=== PATIENT | male | born 1970 | race Caucasian/White ===

== ENCOUNTER 2017-05-18 09:33 | Emergency (ER) | payer OTHER ==
[~2017-05-18] VITALS: Ht 190.5 cm; Wt 149.7 kg
[~2017-05-18 09:33] MED LIST: AMOX TR-K CLV1 EAC1 PO; BACTRIM DS TAB1 EACH PO; DAY TIME COLD-296 ML PO; EFFEXOR XR37.5 MG PO; FARXIGA5 MG PO; HUMALOG100 UNIT/1; HUMALOG100 UNIT/1 SQ; LANTUS100 UNIT/1; LANTUS100 UNITS/ SUB-Q; LEVOTHYROXINE200 MCG PO; LISINOPRIL20 MG; METFORMIN HCL500 MG; METOPROLOL SUC200 MG PO; METOPROLOL TART50 MG; NAPROXEN500 MG PO; NORCO 5-325 TA1 EACH PO; PRAVACHOL20 MG PO; PREDNISONE20 MG PO; PRILOSEC20 MG; PROVENTIL HFA6.7 GM INH; TAMIFLU75 MG PO; TRESIBA FL200 UNIT/1 SQ; VENLAFAXINE HCL75 MG PO; ZOFRAN ODT4 MG PO
[2017-05-18] MEDS ORDERED: VICTOZA 2-0.6 MG/0.1 SUB-Q (09:51)
[2017-05-18] MEDS ORDERED: GABAPENTIN300 MG PO (09:52)
[2017-05-18] MEDS ORDERED: NORCO 5-325 TA1 EACH PO (10:23)
[2017-05-18] MEDS ORDERED: BACTRIM 400-801 EACH PO (10:23)
== END 2017-05-18 10:42 | disposition home or self-care (01) ==
LOC: ED 09:33
DX: I47.1 Supraventricular tachycardia (principal); J45.909 Unspecified asthma, uncomplicated; F32.9 Major depressive disorder, single episode, unspecified; Z88.2 Allergy status to sulfonamides; Z88.5 Allergy status to narcotic agent; Z79.899 Other long term (current) drug therapy
CPT/HCPCS: 99283

== ENCOUNTER 2017-05-31 16:15 | Emergency (ER) | payer OTHER ==
[~2017-05-31] VITALS: Ht 190.5 cm; Wt 151.9 kg
[~2017-05-31 16:15] MED LIST changes: +BACTRIM 400-801 EACH PO; +GABAPENTIN300 MG PO; +VICTOZA 2-0.6 MG/0.1 SUB-Q
[2017-05-31] MEDS ORDERED: DULOXETINE HCL60 MG PO (16:26)
== END 2017-05-31 18:48 | disposition home or self-care (01) ==
LOC: ED 16:15
DX: E10.9 Type 1 diabetes mellitus without complications (principal); E86.0 Dehydration; E78.5 Hyperlipidemia, unspecified; I10 Essential (primary) hypertension; Z88.1 Allergy status to other antibiotic agents; Z88.8 Allergy status to other drugs, medicaments and biological substances; Z79.899 Other long term (current) drug therapy; Z79.4 Long term (current) use of insulin; Z79.01 Long term (current) use of anticoagulants
CPT/HCPCS: 80053; 81001; 83690; 85025; 96361; 96374; 99284; J2405; J7030

== ENCOUNTER 2017-09-01 15:01 | Emergency (ER) | payer OTHER ==
[~2017-09-01] VITALS: Ht 190.5 cm; Wt 146.1 kg
[~2017-09-01 15:01] MED LIST changes: +DULOXETINE HCL60 MG PO
[2017-09-01] MEDS ORDERED: CEFDINIR300 MG PO (15:41)
[2017-09-01] MEDS ORDERED: ONDANSETRON ODT8 MG PO (17:40)
[2017-09-01] MEDS ORDERED: BENTYL10 MG PO (17:40)
== END 2017-09-01 17:52 | disposition home or self-care (01) ==
LOC: ED 15:01
DX: K52.9 Noninfective gastroenteritis and colitis, unspecified (principal); E11.9 Type 2 diabetes mellitus without complications; I10 Essential (primary) hypertension; E78.5 Hyperlipidemia, unspecified; Z88.8 Allergy status to other drugs, medicaments and biological substances; Z79.899 Other long term (current) drug therapy; Z79.4 Long term (current) use of insulin
CPT/HCPCS: 74177; 80053; 82150; 83690; 85025; 96361; 96374; 96375; 99284; J1170; J2405; J7030; Q9967

== ENCOUNTER → 2018-04-03 | Emergency (ER) | payer OTHER ==
[~2018-04-03] VITALS: Ht 188 cm; Wt 121.6 kg
[~2018-04-03] MED LIST changes: +BENTYL10 MG PO; +CEFDINIR300 MG PO; +ONDANSETRON ODT8 MG PO; +PHENERGAN25 MG PR
== END ==
LOC: ED 02:37
DX: R11.2 Nausea with vomiting, unspecified (principal); E87.6 Hypokalemia; E11.9 Type 2 diabetes mellitus without complications; E78.5 Hyperlipidemia, unspecified; I10 Essential (primary) hypertension; Z88.1 Allergy status to other antibiotic agents; Z88.8 Allergy status to other drugs, medicaments and biological substances; Z79.899 Other long term (current) drug therapy; Z79.4 Long term (current) use of insulin
CPT/HCPCS: 74177; 80053; 82150; 83690; 85025; 96361; 96374; 96375; 99284; J1170; J2550; J7030; Q9967

== ENCOUNTER 2018-05-22 23:21 | Emergency (ER) | payer OTHER ==
[~2018-05-22] VITALS: Ht 188 cm; Wt 111.1 kg
[2018-05-22] MEDS ORDERED: METFORMIN HCL500 M1 PO (23:40)
[2018-05-22] MEDS ORDERED: OMEPRAZOLE20 MG PO (23:43)
[2018-05-23] MEDS ORDERED: CIPRO500 MG PO (01:32)
== END 2018-05-23 01:42 | disposition home or self-care (01) ==
LOC: ED 23:21
PROC: 4A0D7LZ Measurement of Urinary Volume, Via Natural or Artificial Opening (ICD-10-PCS; principal; 2018-05-22)
DX: N41.9 Inflammatory disease of prostate, unspecified (principal); E11.9 Type 2 diabetes mellitus without complications; E78.5 Hyperlipidemia, unspecified; I10 Essential (primary) hypertension; Z88.1 Allergy status to other antibiotic agents; Z88.8 Allergy status to other drugs, medicaments and biological substances; Z79.899 Other long term (current) drug therapy; Z79.84 Long term (current) use of oral hypoglycemic drugs
CPT/HCPCS: 51798; 74176; 80053; 81001; 84436; 84479; 84480; 85025; 96361; 96374; 96375; 99284; J1885; J2405; J7030

== ENCOUNTER 2018-07-14 10:00 | Emergency (ER) | payer OTHER ==
[~2018-07-14] VITALS: Ht 188 cm; Wt 104.3 kg
[~2018-07-14 10:00] MED LIST changes: +CIPRO500 MG PO; +METFORMIN HCL500 M1 PO; +OMEPRAZOLE20 MG PO
--- NOTE | 2018-07-14 18:55 | EKG ---
[facility] [address] [facility] [place], [place] [address] Signed Normal sinus rhythm Normal ECG When compared with ECG of 18-SEP-2016 09:38, No significant change was found Confirmed by JOSHUA YEH DO ([id number]) on 07/14/2018 6:55:31 PM Electronically Signed By: JOSHUA YEH DO 07/14/18 1855 PATIENT NAME: KHURRAM NGUYỄN GEETHA Electrocardiogram DATE OF : 68 PHYSICIAN: JOSHUA YEH DO REPORT #: [id number] REPORT IS CONFIDENTIAL AND NOT TO BE RELEASED WITHOUT AUTHORIZATION
== END 2018-07-14 12:30 | disposition home or self-care (01) ==
LOC: ED 10:00
DX: E86.0 Dehydration (principal); I10 Essential (primary) hypertension; E11.9 Type 2 diabetes mellitus without complications; Z87.891 Personal history of nicotine dependence; Z88.1 Allergy status to other antibiotic agents; Z88.8 Allergy status to other drugs, medicaments and biological substances; Z79.899 Other long term (current) drug therapy; Z79.84 Long term (current) use of oral hypoglycemic drugs
CPT/HCPCS: 80053; 84484; 85025; 93005; 93010; 96361; 96374; 99284; J2405; J7120

== ENCOUNTER 2019-01-18 17:27 | Observation (INO) | payer OTHER ==
[~2019-01-18] VITALS: Ht 190.5 cm; Wt 105.7 kg
--- OUTSIDE RECORDS SUMMARY | ~2019-01-18 | XMS | Clinical Summary ---
Demographics + + + | Address | [address] [place] | | | [place] [address] | + + + | Home Phone | | + + + | Preferred Language | Unknown | + + + | Marital Status | | + + + | Lutheran Affiliation | Unknown | + + + | Race | Unknown | + + + | Ethnic Group | Unknown | + + + Author + + + | Author | [facility] | + + + | Organization | [facility] | + + + | Address | Unknown | + + + | Phone | Unavailable | + + + Support + + +---------+ + | Name | Relationship | Address | Phone | + + +---------+ + | Melvi Betancourt | ECON | Unknown | | + + +---------+ + Care Team Providers + +------+ + | Care Pattern Drafter Name | Role | Phone | [...] | [facility] | [phone] | | | | | [facility]OVENTRY | [...] | | al/Nilay | | 1970 | [phone] | [place], | | | katya | | | [birth year] Home: | [place] [address] | | | | | | | | | | | | | [phone] | | | | | | | [phone] | | + +--------+ +--------+ + +"
--- OUTSIDE RECORDS SUMMARY | ~2019-01-18 | XMS | Clinical Summary ---
Demographics + + + | Address | [address] | | | [place] [address] | + + + | Home Phone | | + + + | Preferred Language | Unknown | + + + | Marital Status | | + + + | Zoroastrianism Affiliation | NRP | + + + [...] + | Pooja Nguyễn | ECON | [address] | | | | | [place] [address] | | + + + + + Care Team Providers + +------+ + | Care Spot Washer Name | Role | Phone | + +------+ + | eHmalatha Lawrence PA-C | PP | | + +------+ + Source Comments BERNABE is fully live on both [facility] and [facility] InPatient.[facility] Allergies + + + + [...] | + + + + + + Current Medications + + +---------+---------+------+------+-------+ | Prescription | Sig. | Disp. | Refills | Star | End | Statu | | | | | | t | Date | s | | | | | | Date | | | + + +---------+---------+------+------+-------+ | levothyroxine 200 | Take 200 mcg by | | | | | Activ | | mcg oral tablet | mouth once daily. 6 | | | 06/27 | | e | | | days a week per pt. | | | 17 | | | + + +---------+---------+------+------+-------+ | | Place under tongue. | | | | | Activ | | Cyanocobalamin-Cobam | | | | | | e | | amide (B-12 PLUS) | | | | | | | | 5,000-100 mcg | | | | | | | | sublingual tablet, | | | | | | | | sublingual | | | | | | | + + +---------+---------+------+------+-------+ | LEVOMEFOLATE | Take 15 mcg by mouth | | | | | Activ | | CALCIUM | once daily. | | | | | e | | (L-METHYLFOLATE | | | | | | | | ORAL) | | | | | | | + + +---------+---------+------+------+-------+ | iron | Take 5,000 mcg by | | | | | Activ | | gly,ref-C-[id number]-sn-xco | mouth once daily. | | | | | e | | olate 150 mg | | | | | | | | iron-200 mg-250 mcg | | | | | | | | oral tablet | | | | | | | + + +---------+---------+------+------+-------+ | buPROPion 75 mg | Take 2 tablets by | 120 | 0 | 03/1 | | Activ | | oral tablet | mouth two times | tablet | | 3/20 | | e | | | daily. | | | 18 | | | + + +---------+---------+------+------+-------+ | gabapentin 300 mg | Take 1 capsule by | | | 03/1 | | Activ | | [...] | | | | | + + +---------+---------+------+------+-------+ | metoprolol | Take 1 tablet by | 60 | 0 | 03/1 | | Activ | | tartrate 100 mg oral | mouth two times | tablet | | 3/20 | | e | | tablet | daily. | | | 18 | | | + + +---------+---------+------+------+-------+ | DULoxetine 60 mg | Take 1 capsule by | | | 03/1 | | Activ | | oral capsule,delayed | mouth once daily. | | | 20 | | e | | release(DR/EC) | [...] | | | | | + + +---------+---------+------+------+-------+ | cholecalciferol | Take 2 capsules by | 180 | 1 | 10/ | | Activ | | (Vitamin D3) | mouth once daily. | capsule | | 04/27 | | e | | (VITAMIN D3) 2,000 | | | | 18 | | | | unit oral capsule | | | | | | | + + +---------+---------+------+------+-------+ Active Problems + + + | Problem | Noted Date | + + + | Impaired intestinal absorption | 08/31/2018 | + + + | S/P gastric bypass | 01/17/2018 | + + + | Morbid obesity with BMI of 40.0-44.9, adult ([facility]) | 07/08/2017 | + + + | Insulin dependent diabetes mellitus ([facility]) | 07/08/2017 | + + + | [...] | 8 | + + + + Family History + + +------+ + | [...] + +---------+ + | Alcohol Use | Drinks/We | oz/Week | Comments | | | ek | | | + + +---------+ + | No | | | | + + +---------+ + + + + | Sex Assigned at | Date Recorded | | | | + + + | Not on file | | + + + Last Filed Vital Signs + + + + | Vital Sign | Reading | Time Taken | + + + + | Blood Pressure | 124/86 | 08/31/2018 3:35 PM PDT | + + + + | Pulse | 85 | 08/31/2018 3:35 PM PDT | + + + + | Temperature | 36.7 C (98.1 F) | 08/31/2018 3:35 PM PDT | + + + + | Respiratory Rate | 18 | 08/31/2018 3:35 PM PDT | + + + + | Oxygen Saturation | 100% | 05/25/2018 11:45 AM PDT | + + + + | Inhaled Oxygen | - | - | | Concentration | | | + + + + | Weight | 105.3 kg (232 lb 1.6 | 08/31/2018 3:35 PM PDT | | | oz) | | + + + + | Height | 188 cm (6' 2") | 08/31/2018 3:35 PM PDT | + + + + | Body Mass Index | 29.8 | 08/31/2018 3:35 PM PDT | + + + + Plan of Treatment + + + + + | Health Maintenance | Due Date | Last Done | Comments | + + + + + | Influenza (Flu) | | 08/29/2015, 08/22/2012, | | | vaccination (#1) | 8 | 09/15/2010, Additional history | | | | | exists | | + + + + + | Pneumococcal (Adult) | Completed | 02/22/2007 | | + + + + + Implants + +------+-------+ +--------+--------+--------+ | Implanted | Type | Area | Manufacture | Device | Expira | Model | | | | | r | | tion | / | | | | | | Identi | Date | Serial | | | | | | fier | | / Lot | + +------+-------+ +--------+--------+--------+ | Reinforcement Staple Line | | N/A: | [employer] | | 09/07/ | [id number] | | Bioabsorbable Sterile | | Ankle | [employer] | | 2019 | [id number] / | | Seamguard Latex Free | | | | | | | | Disposable Blue Gold Green - | | | | | | /[id number] | | [id number]: Qty: 2 on | | | | | | 575 | | 01/17/2018 by Arvin Altamirano | | | | | | | | MD Luis Felipe | | | | | | | + +------+-------+ +--------+--------+--------+ | Reinforcement Staple Line | | N/A: | [employer] | | 03/07/ | [id number] | | Bioabsorbable Sterile | | Ankle | [employer] | | 2018 | 5 / | | Seamguard Latex Free | | | | | | /[id number] | | Disposable Dst Series Ceea 25 | | | | | | 750 | | - [id number]: Qty: 1 | | | | | | | | on 01/17/2018 by Evelia | | | | | | | | Arvin Briscoe MD | | | | | | | + +------+-------+ +--------+--------+--------+ Results Not on filefrom Last 3 Months Insurance + +--------+ +------+ + + | Payer | Benefi | Subscriber | Type | Phone | Address | | | t Plan | ID | | | | | | / | | | | | | | Group | | | | | + +--------+ +------+ + + | [facility] | PROVID | [id number] | PPO | [phone] | [address] | | | [address] | | | [phone] | [place] [address] | | | CHOICE | | | | | | | PEBB | | | | | + +--------+ +------+ + + + +--------+ +--------+ + + | Guarantor Name | Accoun | Relation to | Date | Phone | Billing Address | | | t Type | Patient | of | | | | | | | | | | + +--------+ +--------+ + + | KHURRAM NGUYỄN | Person | Self | [birth year] | Home: | [address] [place] [place] [place] | | | al/Fam | | 1970 | [phone] | [place] [address] | | | katya | | | [phone] | | + +--------+ +--------+ + +
--- OUTSIDE RECORDS SUMMARY | ~2019-01-18 | XMS | Clinical Summary ---
Demographics + + + | Address | [address] | | | [place] [address] | + + + | Home Phone | | + + + | Preferred Language | Unknown | + + + | Marital Status | | + + + | Alevism Affiliation | Unknown | + + + | Race | Unknown | + + + | Ethnic Group | Unknown | + + + Author + + + | Author | [facility] | | | and [place] | + + + | Organization | [facility] | | | and [place] | + + + | Address | Unknown | + + + | Phone | Unavailable | + + + Support + + +---------+ + | Name | Relationship | Address | Phone | + + +---------+ + | Pooja Nguyễn | ECON | Unknown | | + + +---------+ + Care Team Providers + +------+ + | Care Cupola Tapper Name | Role | Phone | + +------+ + | Hemalatha Lawrence | PP | | + +------+ + Allergies No Known Allergies Current Medications + + +-------+---------+------+------+-------+ | Prescription | Sig. | Disp. | Refills | Star | End | Statu | | | | | | t | Date | s | | | | | | Date | | | + + +-------+---------+------+------+-------+ | atorvaSTATin | Take 10 mg by mouth | | | | | Activ | | (LIPITOR) 10 mg | nightly. | | | | | e | | tablet | | | | | | | + + +-------+---------+------+------+-------+ | DULoxetine | Take 60 mg by mouth | | | | | Activ | | (CYMBALTA) [address] | Daily. | | | | | e | | capsule | | | | | | | + + +-------+---------+------+------+-------+ | gabapentin | Take 300 mg by mouth | | | | | Activ | | (NEURONTIN) 300 mg | 3 times daily. | | | | | e | | capsule | Takes 2 am, 2 noon, | | | | | | | | 3 nightly | | | | | | + + +-------+---------+------+------+-------+ | levothyroxine | Take 200 mcg by | | | | | Activ | | (SYNTHROID) 200 mcg | mouth every morning | | | | | e | | tablet | (before breakfast). | | | | | | + + +-------+---------+------+------+-------+ | L-methylfolate | Take 1 tablet by | | | | | Activ | | Calcium 15 MG TABS | mouth Daily. | | | | | e | + + +-------+---------+------+------+-------+ | metFORMIN | Take 500 mg by mouth | | | | | Activ | | (GLUCOPHAGE) 500 mg | daily (with | | | | | e | | tablet | breakfast). | | | | | | + + +-------+---------+------+------+-------+ | Methylcobalamin | Take 5,000 mcg by | | | | | Activ | | (METHYL B-12) 1000 | mouth Daily. | | | | | e | | MCG LOZG | | | | | | | + + +-------+---------+------+------+-------+ | metoprolol | Take 200 mg by mouth | | | | | Activ | | succinate | Daily. | | | | | e | | (TOPROL-XL) 200 mg | | | | | | | | ER tablet | | | | | | | + + +-------+---------+------+------+-------+ | acetaminophen | Take 650 mg by mouth | | | 01/06 | | Activ | | (TYLENOL) 325 mg | every 6 hours as | | | 02/25 | | e | | tablet | needed. | | | 18 | | | + + +-------+---------+------+------+-------+ | buPROPion | Take 75 mg by mouth | | | 01/06 | | Activ | | (WELLBUTRIN) 75 mg | Daily. | | | 01/25 | | e | | tablet | | | | 18 | | | + + +-------+---------+------+------+-------+ | cholecalciferol | Take 2,000 Units by | | | 07/09 | | Activ | | (VITAMIN D-3) 2000 | mouth Daily. | | | 01/25 | | e | | units TABS | | | | 17 | | | + + +-------+---------+------+------+-------+ | ursodiol (BILLIE) | Take 250 mg by mouth | | | 03 | | Activ | | 250 mg tablet | Daily. | | | 05/27 | | e | | | | | | 18 | | | + + +-------+---------+------+------+-------+ | CARAFATE 1 GM/10ML | Take 1 g by mouth 4 | | | 05/ | | Activ | | suspension | times daily. | | | 05/27 | | e | | | | | | 18 | | | + + +-------+---------+------+------+-------+ | ondansetron | Take 4 mg by mouth | | | 03/ | | Activ | | (ZOFRAN ODT) 4 mg | every 8 hours as | | | 3 | | e | | disintegrating | needed. | | | 18 | | | | tablet | | | | | | | + + +-------+---------+------+------+-------+ | omeprazole | Take 20 mg by mouth | | | / | | Activ | | (PRILOSEC) 20 mg | every morning | | | 04/27 | | e | | capsule | (before breakfast). | | | 18 | | | + + +-------+---------+------+------+-------+ Active Problems + + + | Problem | Noted Date | + + + | Epigastric pain | 04/06/2018 | + + + | Anxiety disorder, unspecified type | 04/06/2018 | + + + | Depression | 04/06/2018 | + + + | Type 2 diabetes mellitus (HCC) | 04/06/2018 | + + + | Hypothyroidism | 04/06/2018 | + + + | Obesity | 04/06/2018 | + + + Family History + + +------+ + | Medical History | Relation | Name | Comments | + + +------+ + | Alcohol abuse | Brother | | | + + +------+ + | Depression | Brother | | | + + +------+ + | Diabetes | Brother | | | + + +------+ + | Hearing loss | Brother | | | + + +------+ + | Mental illness | Brother | | | + + +------+ + | Alcohol abuse | Father | | | + + +------+ + | Colon cancer | Father | | | + + +------+ + | Arthritis | Mother | | | + + +------+ + | Depression | Mother | | | + + +------+ + | Diabetes | Mother | | | + + +------+ + | Hearing loss | Mother | | | + + +------+ + | Miscarriages / | Mother | | | | stillbirths | | | | + + +------+ + | Stroke | Mother | | | + + +------+ + | Alcohol abuse | Sister | | | + + +------+ + | Cancer | Sister | | | + + +------+ + | Depression | Sister | | | + + +------+ + | Diabetes | Sister | | | + + +------+ + | Alcohol abuse | Sister | | | + + +------+ + | Cancer | Sister | | | + + +------+ + | Depression | Sister | | | + + +------+ + | Diabetes | Sister | | | + + +------+ + + +------+--------+ + | Relation | Name | Status | Comments | + +------+--------+ + | Brother | | | | + +------+--------+ + | Father | | | | + +------+--------+ + | Mother | | | | + +------+--------+ + | Sister | | | | + +------+--------+ + | Sister | | | | + +------+--------+ + Social History + +-------+ +--------+------+ | Tobacco Use | Types | Packs/Day | Years | Date | | | | | Used | | + +-------+ +--------+------+ | Never Smoker | | | | | + +-------+ +--------+------+ + +---+---+---+ | Smokeless Tobacco: | | | | | Never Used | | | | + +---+---+---+ + + +---------+ + | Alcohol Use [...] + + + | Blood Pressure | 107/68 | 04/14/20181405 PDT | + + + + | Pulse | 58 | 04/14/20181405 PDT | + + + + | Temperature | 36.6 C (97.9 F) | 04/14/2018 1213 PDT | + + + + | Respiratory Rate | 10 | 04/14/2018 1401 PDT | + + + + | Oxygen Saturation | 93% | 04/14/2018 140 PDT | + + + + | Inhaled Oxygen | - | - | | Concentration | | | + + + + | Weight | 119.7 kg (263 lb | 04/14/2018 123 PDT | | | 14.3 oz) | | + + + + | Height | 188 cm (6' 2") | 04/14/2018 1237 PDT | + + + + | Body Mass Index | 33.88 | 04/14/2018 1237 PDT | + + + + Plan of Treatment + + + + + | Health Maintenance | Due Date | Last Done | Comments | + + + + + | Diabetic Eye Exam | | | | | | 7 | | | + + + + + | Diabetic Foot Exam | | | | | | 7 | | | + + + + + | Hemoglobin A1c Q3 | | | | | Months | 7 | | | + + + + + | Vaccine: | | | | | Dtap/Tdap/Td (1 - | 8 | | | | Tdap) | | | | + + + + + | Vaccine: | | | | | Pneumococcal 19-64 | 8 | | | | (PPSV23 only) Medium | | | | | Risk (1 of 1 - | | | | | PPSV23) | | | | + + + + + | Microalbumin | | | | | Screening | 8 | | | + + + + + | Vaccine: Influenza | | | | | (#1) | 8 | | | + + + + + Results Not on filefrom Last 3 Months Insurance + +--------+ +------+ +---------+ | Payer | Benefi | Subscriber | Type | Phone | Address | | | t Plan | ID | | | | | | / | | | | | | | Group | | | | | + +--------+ +------+ +---------+ | [facility] | PHP | [id number] | PPO | [phone] | | PLAN | PEBB | | | [phone] | | | | PROV | | | | | | | CHOICE | | | | | + +--------+ +------+ +---------+ + +--------+ +--------+ + + | Guarantor Name | Accoun | Relation to | Date | Phone | Billing Address | | | t Type | Patient | of | | | | | | | | | | + +--------+ +--------+ + + | KHURRAM NGUYỄN | Person | Self | [birth year] | Home: | [address] [place] | | | al/Fam | | 1970 | [phone] [place] [address] | | | katya | | | [phone] | | + +--------+ +--------+ + +
[2019-01-18] MEDS ORDERED: BUPROPION XL300 MG PO (17:46)
--- NOTE | 2019-01-18 19:53 | EKG ---
[facility] [address] [facility] [place] [address] Signed Normal sinus rhythm Right bundle branch block Left anterior fascicular block Bifascicular block Abnormal ECG When compared with ECG of 14-JUL-2018 10:18, (RBBB and left anterior fascicular block) is now present Confirmed by VANCE DOUGLASS MD ([id number]) on 01/18/2019 7:53:27 PM Electronically Signed By: VANCE DOUGLASS MD 01/18/19 195 PATIENT NAME: KHURRAM NGUYỄN Electrocardiogram DATE OF : 68 PHYSICIAN: VANCE DOUGLASS MD REPORT #: [id number] REPORT IS CONFIDENTIAL AND NOT TO BE RELEASED WITHOUT AUTHORIZATION
--- NOTE | 2019-01-18 23:04 | NUR ---
ASSESSMENT COMPLETE, MEDICATIONS GIVEN (SEE EMAR). IV FLUIDS INFUSING PER MD ORDERS, SITE WNL. PT A/OX4, DENIES PAIN. LUNCH BOX AND WATER AT BEDSIDE. PT DENIES FURTHER NEEDS, CALLL LIGHT IN REACH.
--- NOTE | 2019-01-19 01:30 | NUR ---
PT SBA TO VOID, 650 OUTPUT. DENIES NEEDS, RESTING IN BED. RR WNL. CALL LIGHT IN REACH. IV FLUIDS INFUSING PER MD ORDERS, SITE WNL.
--- NOTE | 2019-01-19 02:04 | NUR ---
PT RESTING IN BED, RR WNL. TELE #9, NSR, HR 64. CALL LIGHT IN REACH.
--- NOTE | 2019-01-19 02:53 | NUR ---
VITALS AND I&OS DONE AND CHARTED.
--- NOTE | 2019-01-19 02:55 | NUR ---
VSS AND I&O'S RECORDED. ASSESSMENT COMPLETE. PT A/OX4, DENIES PAIN, SOB, DYSPNEA. IV FLUIDS INFUSING PER MD ORDERS, SITE WNL. PT ON RA, NO DISTRESS NOTED. DENIES FURTHER NEEDS. BOWEL TONES ACTIVE. THIS RN DISCUSSED SYMPTOMS OF HYPOGLYCEMIS TO PT, PT VERBALIZED UNDERSTANDING AND WHEN ASKED IF PT CAN TELL WHEN BS BEGINS TO DROP, PT STATED, "YEAH, I CAN TELL". PT DENIES SYMTPOMS F LOW BS AT THIS TIME. CALL LIGHT IN REACH.
--- NOTE | 2019-01-19 04:38 | NUR ---
PT RESTING IN BED, RR WNL. EYES CLOSED, PT APPEARS COMFORTABLE. IV FLUIDS INFUSING PER MD ORDERS. CALL LIGHT IN REACH. PT ON RA.
--- NOTE | 2019-01-19 05:00 | NUR ---
PT ARRIVED TO THE UNIT AT BEGINNING OF SHIFT. VSS. PT A/OX4, DENIED PAIN ALL SHIFT. IV FLUIDS INFUSING PER MD ORDERS, IV SITE WNL. PT ON ADA DIET, TOLERATING WELL, NO NAUSEA THIS SHIFT. BS WNL, NO INSULIN SS ADMINISTERED. BOWEL TONES ACTIVE. PT SBA W/ AMBULATION. USES CALL LIGHT APPROEPRIATELY. VOIDING QS, BM X1 THIS SHIFT.
--- NOTE | 2019-01-19 05:16 | NUR ---
VS AND I&O'S RECORDED. PT UP SBA TO VOID, 825 OUTPUT. NO FURTHER NEEDS. PT RESTING IN BED, CALL LIGHT IN REACH.
--- NOTE | 2019-01-19 07:15 | NUR ---
BEDSIDE HANDOFF REPORT RECEIVED FROM BUDGET RECORD CLERK RN. PT SLEEPING, LEFT UNDISTURBED.
--- NOTE | 2019-01-19 07:28 | NUR ---
scheduled thyroid medication given. pt denies needs, call light in reach.
--- NOTE | 2019-01-19 08:39 | NUR ---
DID PATIENT'S BLOOD SUGAR CHECK ALSO HE IS SITTING UP IN HIS CHAIR. ORDERED HIS BREAKFAST. CHANGED HIS BED LINENS.
--- NOTE | 2019-01-19 08:53 | NUR ---
PT SITTING IN CHAIR. PT COMPLAINT OF FEELING WEAK AND SLIGHTLY DIZZY, SBA BACK TO BED, VSS. PT ON ROOM AIR, LUNG SOUNDS CLEAR. PT DENIES NAUSEA, BOWEL TONES ACTIVE. PT WITHOUT EDEMA, CMS INTACT. IV INFUSING LR AT 100 ML/HR. PT BLOOD GLUCOE 85, SS HUMALOG HELD, TOLERATIGN ADA DIET. DISCUSSED PLAN OF CARE FOR THE DAY. MORNING MEDICATIONS ADMINISTERED. CALL LIGHT WITHIN [facility], PT DENIES OTHER NEEDS AT THIS TIME.
[2019-01-19] MEDS ORDERED: IRON325 M1 PO (11:00)
[2019-01-19] MEDS ORDERED: VITAMIN C500 M1 PO (11:00)
[2019-01-19] MEDS ORDERED: CENTRUM ADULTS1 EACH PO (11:00)
--- NOTE | 2019-01-19 11:02 | NUR ---
MED REC COMPLETE
--- NOTE | 2019-01-19 11:51 | NUR ---
PATIENT IS 1 YR POST BARBY EN Y GASTRIC BYPASS SURGERY. HE HAS LOST ABOUT 110 LBS. HE IS NOT DRINKING MANY PROTEIN DRINKS ANYMORE. HE WAS ABLE TO NAME FISH A PROTEIN FOOD. HE DOES NOT KNOW HOW MUCH PROTEIN HE IS CONSUMING ON AVERAGE. I GAVE HIM A GUIDELINE THAT HE NEEDS 100-140 GRAMS OF PROTEIN EACH DAY. I GAVE HIM A MEAL PLAN OUTLINE WITH GRAMS OF PROTEIN PER MEAL AND SNACK, AND ALSO PROVIDED A LIST OF LEAN PROTEINS. I PRINTED OUT A LIST OF VITAMINS AND MINERAL SUPPLEMENTS HE NEEDS TO TAKE AT HOME. HE SAID HE WAS TAKING SOME, BUT CAME IN WITH WEAKNESS, SO I MADE SURE HE UNDERSTOOD WHAT AND HOW MUCH HE NEEDS TO BE TAKING EVERY DAY. HE APPRECIATED MY HELP. MY CARD PROVIDED IN CASE HE HAS FURTHER QUESTIONS.
== END 2019-01-19 11:55 | disposition home or self-care (01) ==
LOC: ED 17:27 → MS 17:29
PROVIDERS: ADMIT Internal Medicine
DX: E03.9 Hypothyroidism, unspecified (principal); R53.1 Weakness; R07.9 Chest pain, unspecified; F43.9 Reaction to severe stress, unspecified; E11.9 Type 2 diabetes mellitus without complications; I10 Essential (primary) hypertension; E78.5 Hyperlipidemia, unspecified; Z98.84 Bariatric surgery status; Z79.899 Other long term (current) drug therapy; Z79.84 Long term (current) use of oral hypoglycemic drugs; Z88.1 Allergy status to other antibiotic agents; Z88.8 Allergy status to other drugs, medicaments and biological substances
CPT/HCPCS: 36415; 70450; 71045; 71275; 74175; 80048; 80053; 82607; 82746; 83735; 84100; 84425; 84439; 84443; 84484; 85025; 85610; 85730; 87502; 93005; 93010; 96374; 96375; 96376; 99285-25; C9113; G0378; J7120; Q9967

== ENCOUNTER 2019-07-26 00:03 | Emergency (ER) | payer OTHER ==
[~2019-07-26] VITALS: Ht 188 cm; Wt 111.1 kg
[~2019-07-26 00:03] MED LIST changes: +BUPROPION XL300 MG PO; +CENTRUM ADULTS1 EACH PO; +IRON325 M1 PO; +OFLOXACIN5 M1; +VITAMIN C500 M1 PO
== END 2019-07-26 01:26 | disposition home or self-care (01) ==
LOC: ED 00:03
DX: S63.601A Unspecified sprain of right thumb, initial encounter (principal); W22.8XXA Striking against or struck by other objects, initial encounter; E78.5 Hyperlipidemia, unspecified; I10 Essential (primary) hypertension; Z87.891 Personal history of nicotine dependence; Z88.8 Allergy status to other drugs, medicaments and biological substances; Z88.1 Allergy status to other antibiotic agents; Z79.899 Other long term (current) drug therapy
CPT/HCPCS: 73140; 99283

== ENCOUNTER 2019-09-15 11:52 | Day surgery (SDC) | payer OTHER ==
[~2019-09-15] VITALS: Ht 188 cm; Wt 113.4 kg
--- NOTE | ~2019-09-15 | OR ---
[facility] [address] [place], [place] [address] Draft DATE OF OPERATION: 09/15/2019 SURGEON: Brayden Reyes DPM PREOPERATIVE DIAGNOSES: 1. Diabetic foot ulcer with infection. 2. Osteomyelitis, distal phalanx, right hallux. ANESTHESIA: IV general with local block, right foot. INSURANCE CODER: Randall Davies. SPECIMEN TO PATHOLOGY: Bone of distal phalanx, right hallux, also an aerobic and anaerobic cultures. PROCEDURE: Debridement of ulcer and osteomyelitis, right hallux. DESCRIPTION OF PROCEDURE: Attention was initially directed to the right great toe where an incision was made proximal to the toenail transversely across the toe then circumscribing the entire nail. The soft tissues then excised deep to bone, removing the soft tissue surrounding the nail and the toenail itself and exposing the dorsal aspect of the phalanx. At this time, soft tissues were reflected to the distal medial and lateral sides of the phalanx as well as plantarly to fully expose the phalanx, the distal 1.5-2 cm of the distal phalanx, then removed using power instrumentation. This is the portion of bone that showed changes radiographically. The location of the osteotomy within the distal phalanx was noted to have hard and solid bone. The soft tissues surrounding the distal phalanx appeared to be without necrosis, except for a small area at the ulcer site plantarly. At this time, the plantar ulcer was excised and the soft tissues directly superior to the ulcer. The soft tissue then remaining to the toe was irrigated any remaining tissue of nail bed or nail matrix excised and any necrotic appearing tissue excised as well. Soft tissue flap of plantar soft tissues then modified for closure and the surgical site was then closed using 4-0 nylon monofilament suture. Prior to complete closure, calcium sulfate beads with vancomycin were placed within the wound site and the wound site closed completely. ESTIMATED BLOOD LOSS: PATIENT NAME: KHURRAM NGUYỄN OPERATIVE REPORT DATE OF : [birth year] REPORT #: [id number] PHYSICIAN: BRAYDEN REYES DPM PCP: JULISSA PACHECO PA-C REPORT IS CONFIDENTIAL AND NOT TO BE RELEASED WITHOUT AUTHORIZATION [facility] [address] [facility] [place] [address] Draft Less than 5 mL. INTRAOPERATIVE COMPLICATIONS: None. DRESSINGS: Surgical site was dressed with Adaptic, Betadine-soaked gauze, dry gauze, Kerlix fluffs, Flexicon, and Coban for mild compression as well as to secure the dressings. The patient tolerated the procedure and the anesthesia well and left the operating room with vital signs stable and vascular status intact to the right foot as evidenced by hyperemia with removal of the Esmarch. AMA Johnson/WALTL /[id number] Copies: ~ PATIENT NAME: KHURRAM NGUYỄN OPERATIVE REPORT DATE OF : [birth year] REPORT #: [id number] PHYSICIAN: BRAYDEN REYES DPM PCP: JULISSA PACHECO PA-C REPORT IS CONFIDENTIAL AND NOT TO BE RELEASED WITHOUT AUTHORIZATION
--- NOTE | 2019-09-15 14:16 | NUR ---
09/15/19 1416 Hansa Welch 1407- PT ARRIVES TO PACU EASILY AROUSABLE. PT VERY DROWSY AND NOT FOLLOWING DIRECTIONS WELL. PT EDUCATED THAT HE IS IN THE RECOVERY ROOM RESP EVEN AND UNLABORED. OXYGEN SAT LOW TO MID 90'S ON 6L VIA MASK. 1409- PT ENCOURAGED TO COUGH AND DEEP BREATHE. PT IS ABLE TO PERFORM THESE TASKS AND OXYGEN SAT INCREASED TO THE MID TO HIGH 90'S. OXYGEN TITRATED OFF AT THIS TIME.
--- NOTE | 2019-09-16 07:41 | EKG ---
[facility] [address] [facility] [place], [place] [address] Signed Normal sinus rhythm Right bundle branch block Abnormal ECG When compared with ECG of 18-JAN-2019 17:32, Left anterior fascicular block is no longer present Confirmed by VANCE DOUGLASS MD ([id number]) on 09/16/2019 7:41:37 AM Electronically Signed By: VANCE DOUGLASS MD 09/16/19 0741 PATIENT NAME: DELMAKHURRAM Electrocardiogram DATE OF : [birth year] PHYSICIAN: VANCE DOUGLASS MD REPORT #: [id number] REPORT IS CONFIDENTIAL AND NOT TO BE RELEASED WITHOUT AUTHORIZATION
--- NOTE | 2019-09-19 15:41 | PATH ---
[facility] [address] [place], [place] [address] Signed SPECIMEN(S): A RIGHT DISTAL PHALANX SPECIMEN SOURCE: A. RIGHT DISTAL PHALANX CLINICAL HISTORY: Right foot ulcer and osteomyelitis. FINAL PATHOLOGIC DIAGNOSIS: Right foot, portion of distal phalanx, site not further specified, excision: - Bony tissue with acute and chronic osteomyelitis. - Negative for malignancy and atypia. LJA:cml:C2NR MICROSCOPIC EXAMINATION: Histologic sections of all submitted blocks are examined by light microscopy. These findings, together with the gross examination, support the pathologic diagnosis. GROSS DESCRIPTION: The specimen is received in a formalin filled specimen container labeled "DF". An irregular fragment of russ bone is 1.6 x 1.5 x 1 cm and has attached fibrous connective tissue. The specimen is sharply sawed three yellow fatty cancellous bone. The bony margin is inked blue. The specimen is multiply sectioned longitudinally and entirely submitted for decalcification as two sections each in cassettes A1 and A2. GW (under the direct supervision of a pathologist) The Gross Description was prepared using a voice recognition system. The report was reviewed for accuracy; however, sound-alike word errors, addition and/or deletions may occur. If there is any question about this report, please contact Client Services. PERFORMING LABORATORY: The technical component was performed by [facility], [address] [place] [id number] (Floor Associate: Sarah Daniels MD; CLIA# [id number]). [facility] [address] [address] (Floor Associate: Russel Smalls MD; CLIA# [id number]). PATIENT NAME: KHURRAM NGUYỄN PATHOLOGY DATE OF : 68 REPORT #: [id number] PHYSICIAN: JADYN PATHOLOGY PCP: JULISSA PACHECO PA-C REPORT IS CONFIDENTIAL AND NOT TO BE RELEASED WITHOUT AUTHORIZATION [address] [place] [address] Signed Diagnostician: Russel Smalls MD Pathologist Electronically Signed 09/19/2019 Copies: ~ PATIENT NAME: KHURRAM NGUYỄN PATHOLOGY DATE OF : 68 REPORT #: [id number] PHYSICIAN: JADYN PATHOLOGY PCP: JULISSA PACHECO PA-C REPORT IS CONFIDENTIAL AND NOT TO BE RELEASED WITHOUT AUTHORIZATION
== END 2019-09-15 14:55 | disposition home or self-care (01) ==
LOC: OPS 11:52 → DS 13:00 → OPS 14:55
PROVIDERS: Podiatrist Foot Surgery
PROC: 0QBQ0ZZ Excision of Right Toe Phalanx, Open Approach (ICD-10-PCS; principal; 2019-09-15 13:00)
DX: E11.69 Type 2 diabetes mellitus with other specified complication (principal); M86.171 Other acute osteomyelitis, right ankle and foot; M86.671 Other chronic osteomyelitis, right ankle and foot; E11.621 Type 2 diabetes mellitus with foot ulcer; L97.514 Non-pressure chronic ulcer of other part of right foot with necrosis of bone; I10 Essential (primary) hypertension; G47.33 Obstructive sleep apnea (adult) (pediatric); F41.9 Anxiety disorder, unspecified; F32.9 Major depressive disorder, single episode, unspecified; E03.9 Hypothyroidism, unspecified; Z79.2 Long term (current) use of antibiotics; Z79.899 Other long term (current) drug therapy; Z99.89 Dependence on other enabling machines and devices; Z79.4 Long term (current) use of insulin; Z87.891 Personal history of nicotine dependence
CPT/HCPCS: 73630; 93005; 93010; C1713; J2405; J2704; J2795; J3370; J7060; J7121

== ENCOUNTER 2019-10-18 16:23 | Emergency (ER) | payer OTHER ==
[~2019-10-18] VITALS: Ht 188 cm; Wt 113.4 kg
--- OUTSIDE RECORDS SUMMARY | ~2019-10-18 | XMS | Encounter Summary ---
Demographics + + + | Address | [address] [facility] | | | [place] [address] | + + + | Home Phone | | + + + | Preferred Language | Unknown | + + + | Marital Status | | + + + | Pentecostalism Affiliation | NRP | + + + | Race | White | + + + | Ethnic Group | Not or | + + + Author + + + | Author | [facility] | + + + | Organization | [facility] | + + + | Address | Unknown | + + + | Phone | Unavailable | + + + Support + + + + + | Name | Relationship | Address | Phone | + + + + + | Pooja Valdez | ECON | [address] | | | | | [place] | | | | | [address] | | + + + + + Care Team Providers + +------+ + | Care It Systems Administrator Name | Role | Phone | + +------+ + | Hemalatha Lawrence PA-C | PCP | | + +------+ + Encounter Details +--------+ + + + + | Date | Type | Department | Care Team | Description | +--------+ + + + + | 05/04/ | Inside | [facility] at [facility] | Clair Downing | | | 2017 | Referral | [facility] [address] | MD [address] | | | | Order | [address] Mailcode: | [address] | | | | | [facility] | [place], [place] | | | | | [facility], | [address] | | | | | [address] | [phone] | | | | | [place], [place] | | | | | | [address] | | | | | | [phone] | | | +--------+ + + + + Social History + +-------+ +--------+ + | Tobacco Use | Types | Packs/Day | Years | Date | | | | | Used | | + +-------+ +--------+ + | Former Smoker | | 0.75 | 6 | Quit: 11/08/1993 | + +-------+ +--------+ + + +---+---+---+ | Smokeless Tobacco: | | | | | Never Used | | | | + +---+---+---+ + + | Comments: quit 23 years ago | + + + + +---------+ + | Alcohol Use | Drinks/Week | oz/Week | Comments | + + +---------+ + | No | | | | + + +---------+ + + + + | Sex Assigned at | Date Recorded | | | | + + + | Not on file | | + + + + + + + | Job Start Date | Occupation | Industry | + + + + | Not on file | Not on file | Not on file | + + + + + + + + | Travel History | Travel Start | Travel End | + + + + + + | No recent travel history available. | + + documented as of this encounter Functional Status + + + + | Functional Status | Response | Date of Assessment | + + + + | Because of a physical, mental, or emotional | No | 01/18/2018 | | condition, do you have serious difficulty | | | | doing errands alone such as visiting the | | | | doctor? | | | + + + + + + + + | Cognitive Status | Response | Date of Assessment | + + + + | Because of a physical, mental, or emotional | No | 01/18/2018 | | condition, do you have serious difficulty | | | | concentrating, remembering, or making | | | | decisions? (5 years old or older) | | | + + + + documented as of this encounter Plan of Treatment +--------+ + + + + | Date | Type | Specialty | Care Team | Description | +--------+ + + + + | 12/15/ | Office | Pre-operative | 2, [facility] [address] | | | 2020 | Visit | Medicine | [address] | | | | | | [place] [address] | | +--------+ + + + + | 01/04/ | Procedure | Surgery | | | | 2019 | Pass | | | | +--------+ + + + + | 01/25/ | Office | Otolaryngology | Santos Valdivia, | | | 2019 | Visit | | [address] [facility] | | | | | | [address] | | | | | | [place], [place] | | | | | | [address] | | | | | | [phone] | | | | | | | | +--------+ + + + + documented as of this encounter Results ANKITA (05/25/2018 10:28 AM PDT) + + | Specimen | + + | | + + + +--------- -----+ | Narrative | Performe d At | + +--------- -----+ | MRN: | [facility] | | [id number] Date: 05/25/2018Patient Name: Mynor Booth #: | ENDOSCOP Y | | [id number] of : 1970CSN: [id number] Type: | | | [facility]Procedure: Upper GI | | | endoscopyIndications: Therapeutic procedure, dilation of | | | known surgical G-J anastomotic | | | stricture - patient denies NSAIDs or smokingProviders: | | | VICKIE AMEZCUA MD (Doctor), EPHRAIM HAWKINS, RN | | | (Nurse), JUAN BABCOCK, Psychiatric Nursing Aide | | | (Psychiatric Nursing Aide)Referring MD: CLAIR DOWNING, | | | MDRequesting Provider: Medicines: Fentanyl 175 | | | micrograms IV, Midazolam 7 mg IVComplications: No immediate | | | complications.Procedure: Pre-Anesthesia Assessment: | | | - ASA Grade Assessment: II - A patient with | | | mild systemic disease. | | | Prior to the procedure, a History and Physical with | | | airway assessment was performed (see | | | patient record), and patient | | | medications and allergies were reviewed. The | | | risks and benefits of the procedure and the sedation | | | options and risks were discussed. All questions | | | were answered and informed consent was | | | obtained. After reviewing the risks and | | | benefits, the patient was deemed in | | | satisfactory condition to undergo the procedure. | | | Immediately prior to administration of medications, the | | | patient was re-assessed for adequacy to | | | receive sedatives. The heart rate, | | | respiratory rate, oxygen saturations, | | | blood pressure, adequacy of pulmonary | | | ventilation, and response to care were monitored | | | throughout the procedure. The physical status of the | | | patient was re-assessed after the procedure. | | | The Olympus GIF-H190 Gastroscope | | | #[id number] was introduced through the | | | mouth, and advanced to the third part of | | | duodenum. The upper GI endoscopy was accomplished | | | without difficulty. The patient tolerated the procedure | | | well.Estimated Blood Loss: | | | Estimated blood loss: none.Findings: The examined esophagus was | | | normal. Evidence of a Brynn-en-Y gastrojejunostomy was found. The | | | gastrojejunal anastomosis was characterized by moderate | | | stenosis. This was traversed with the standard upper endoscope | | | which caused some truma (contact bleeding). The | | | gclhoqfq-kt-qohanph limb was not examined. A TTS dilator was | | | passed through the scope. Dilation with a 15-16.5-18 mm pyloric | | | balloon dilator was performed. The dilation site was examined and | | | showed moderate improvement in luminal narrowing. Estimated | | | blood loss was minimal. The examined jejunum was | | | normal.Moderate Sedation: Moderate (conscious) sedation was | | | administered by the endoscopy nurse and supervised by the | | | endoscopist. The following parameters were monitored: oxygen | | | saturation, heart rate, blood pressure, and response to care. | | | Total physician intraservice time was 15 minutes.Impression: | | | - Normal esophagus. - Brynn-en-Y | | | gastrojejunostomy with gastrojejunal | | | anastomosis characterized by moderate stenosis. Dilated. | | | - Normal examined jejunum. | | | - No specimens collected.Recommendation: - Discharge | | | patient to home. - Resume previous diet. | | | - Continue present medications. | | | - Repeat upper endoscopy with dilation as | | | needed.VICKIE AMEZCUA MD05/25/2018 11:13:04 AMThis report has been | | | signed electronically.Number of Addenda: 0Note Initiated On: 05/25/2018 | | | 10:28 AM | | | - Continue present medications. | | | - Repeat upper endoscopy with dilation as needed. | | |VICKIE AMEZCUA MD | | |05/25/2018 11:13:04 AM | | |This report has been signed electronically. | | |Number of Addenda: 0 | | |Note Initiated On: 05/25/2018 10:28 AM | | + +--------- -----+ + +---------+ + + | Performing | Address | City/State/Zipcode | Phone Number | | Organization | | | | + +---------+ + + | [facility] | | | | + +---------+ + + documented in this encounter Visit Diagnoses + + | Diagnosis | + + | Anastomotic stricture of gastrojejunostomy - Primary | + + documented in this encounter"
--- OUTSIDE RECORDS SUMMARY | ~2019-10-18 | XMS | Encounter Summary ---
Demographics + + + | Address | [address] [facility] | | | [place] [address] | + + + | Home Phone | | + + + | Preferred Language | Unknown | + + + | Marital Status | | + + + | Taoism Affiliation | NRP | + + + | Race | White | + + + | Ethnic Group | Not or | + + + Author + + + | Author | [facility] | + + + | Organization | [facility] | + + + | Address | Unknown | + + + | Phone | Unavailable | + + + Support + + + + + | Name | Relationship | Address | Phone | + + + + + | Pooja Valdez | ECON | [address] | | | | | [place] | | | | | [address] | | + + + + + Care Team Providers + +------+ + | Care Cloth Printing Utility Worker Name | Role | Phone | + +------+ + | Hemalatha Lawrence PA-C | PCP | | + +------+ + Reason for Visit + + + | Reason | Comments | + + + | Postoperative visit | | + + + Encounter Details +--------+---------+ + + + | Date | Type | Department | Care Team | Description | +--------+---------+ + + + | 02/25/ | Office | Digestive Health | Arvin Altamirano, | Aftercare following | | 2018 | Visit | [facility] [address] | MD [address] | surgery (Primary Dx) | | | | [address] | [place], [place] | | | | | Mailcode: Center | [address] | | | | | for Health and | | | | | | [facility] | | | | | | [place], [place] | | | | | | [address] | | | | | | | | | +--------+---------+ + + + Social History + +-------+ [...] + + documented as of this encounter Last Filed Vital Signs + + + + + | Vital Sign | Reading | Time Taken | Comments | + + + + + | Blood Pressure | 146/85 | 02/25/2018 11:27 AM | | | | | PDT | | + + + + + | Pulse | 92 | 02/25/2018 11:27 AM | | | | | PDT | | + + + + + | Temperature | 37.1 C (98.7 F) | 02/25/2018 11:27 AM | | | | | PDT | | + + + + + | Respiratory Rate | 18 | 02/25/2018 11:27 AM | | | | | PDT | | + + + + + | Oxygen Saturation | - | - | | + + + + + | Inhaled Oxygen | - | - | | | Concentration | | | | + + + + + | Weight | 130.4 kg (287 lb 6.4 | 02/25/2018 11:27 AM | | | | oz) | PDT | | + + + + + | Height | 188 cm (6' 2") | 02/25/2018 11:27 AM | | | | | PDT | | + + + + + | Body Mass Index | 36.9 | 02/25/2018 11:27 AM | | | | | PDT | | + + + + + documented in this encounter Functional Status + + + [...] + + documented as of this encounter Patient Instructions Patient Instructions Arvin Altamirano MD - 02/25/2018 11:00 AM PDTCan wean off omeprazole. Start taking it mzxmg-aamfd-sov for 2 wks. If you have no heartburn, take it twice a week for another 2 wks and then stop the omeprazole. Please visit with our Senior Applications Developer (RD) for instructions about your Bariatric diet, assistance with calorie counts, tips and tricks for working with your diet restrictions, an d recipes after bariatric surgery. Daily yogurt; even just 1 tablespoon twice a day will provide enough probiotics to optimize digestion. Try to use a high-quality, probiotic-dense yogurt (eg Pinky's, [place], Lif eway Kefir, Sash Clamp Operator Vicente's Bulgarian Yogurt). Remember to chew your food well, eat small bites, and work on eating slowly. Avoid drinkin g fluid within 20 min before or after meals. Try to exercise at least 30 min four times each week. Try to add some strength training a nd resistance work, in addition to cardio exercise. Water exercises can be very useful if y ou have joint pain/back pain or other limitations. Check with your local gyms and [employer] /community centers for classes. Our psychologist is available to see you after surgery, if you are feeling stressors or nee d emotional support. Please let us know if you'd like to see them. We have monthly support groups and an online facebook support group. We encourage particip ation in a support group as this does encourage healthy habits and reinforces all of the thi ngs your learned in your classes and during appointments with our RD. Smoking: We strongly discourage nicotine use after surgery. Nicotine reduces oxygen to the healing stomach. There are also intermediate complications of poor wound healing and gastric u lcers. These ulcers are started by smoking or using other nicotine products (vapor cigarett es etc). Gastric bypass patients should also avoid NSAIDS(ibuprofen, advil, motrin, naprosyn/naproxe n/aleve) to prevent gastric/marginal ulcers. Be proactive in your healthcare. Followup with your PCP. Get your regular screening exams such as mammograms, colonoscopies etc. Know your insurance and your insurance benefits, an d if they are ever unclear, call your insurance company for clarification (look on the back of your insurance card for the contact phone number). documented in this encounter Progress Notes Arvin Altamirano MD - 02/25/2018 11:00 AM PDTA student assisted with documenting this servi ce. I saw the patient and reviewed and verified all information documented by the student an d made modifications to such information, when appropriate. REASON FOR VISIT: Postop check. DATE OF SURGERY: 01/17/2018 HISTORY: Mynor Valdez is a(n) 47 y.o. male with history of Here for postop check s/p LRYGB Pt has lost 40lbs since preop visit. Doing really well, no complaints today. A bit adventurous with food choices- ate an olive stuffed with jalapeno and this gave him some heartburn Is taking meds according to discharge instructions yes Feels medication instructions were clear at discharge yes SUPPLEMENTS: MVI: yes Calcium supplement: yes Vit D: yes B12: yes VITAL SIGNS: BP 146/85 | Pulse 92 | Temp (Src) 37.1 C (98.7 F) (Oral) | RR 18 | Ht 1.88 m (6' 2") | Wt 130.4 kg (287 lb 6.4 oz) | BMI 36.9 kg/(m^2) WNWD, NAD, speaking in complete sentences Exam SURGICAL SITE: Healed well IMPRESSION: A(n) 47 y.o. male s/p LRYGB, doing well PLAN: - no activity restrictions, given RTW letter for 02/28/2018 - avoid NSAIDs due to risk for marginal ulcer - can start to wean off PPI if no GERD, use caution with food choices that cause some GERD (spicy foods) - ensure taking vitamins - walk regularly. If unable to walk, consider PT referral and water exercises - Meet with RD to review diet stages and recommendations - consider attendance at support groups - see PCP for ongoing management of chronic medications and medical problems. I have rev'd medications and problem list as pertains to bariatric surgery today. Electronically signed on 02/25/2018 at 11:45 AM ARVIN ALTAMIRANO MD. Division of Bariatric Surgery [facility] | [address] | [place], [place] | [address] | irisha Espitia - 11:00 AM PDT Department of Surgery Division of Foregut/Bariatric Surgery Clinic Follow-Up Author: Sirisha Espitia MS3 Attending Physician: Dr. Altamirano 02/25/18, 11:31 AM Chief Complaint: 1 month follow up from laparoscopic Brynn-en-Y Gastric Bypass Procedure(s): Laparoscopic Brynn-en-Y Gastric Bypass 01/17/18 Subjective/Interval History: Mynor Valdez is a 47 y.o. male patient who presents to clinic today for one months follo w up of RYGB. Weight at time of surgery: 327 , weight today: 287, total weight lost: 40 lbs Had some pain when eating/sipping water but this has resolved Constipation post surgery but has resolved Physical activity: Walking 1/2 hour 3x/week, looking into joining a gym Diet - premiere protein shakes, cream of wheat, pudding, jello, refried beans Had some abdominal pain when he tried a tortilla a week ago Protein: thinks is meeting goals, supplementing with protein powder and premiere shakes, 60 -80 g/day Liquid around 64 ounces Has some heartburn with spicy foods (ate some garlic, jalepeno stuffed olives). Hasn't noti ben excess hair loss. Bariatric Medications: MVI with iron twice daily: yes Calcium citrate 1500mg daily: yes B12 500mcg SL daily or monthly shot: sublingual, yes H2RB/PPI daily: omeprazole daily Actigall 300 BID: No Narcotics: Not taking Has only been taking his metoprolol for HTN. Hypertensive in clinic today. ROS: ROS negative aside from that mentioned above in HPI OBJECTIVE: Vitals: BP 146/85 | Pulse 92 | Temp (Src) 37.1 C (98.7 F) (Oral) | RR 18 | Ht 1.88 m (6' 2") | Wt 130.4 kg (287 lb 6.4 oz) | BMI 36.9 kg/(m^2) Physical Exam: GENERAL: NAD, alert. HEENT: NCAT, EOMI, MMM. NECK: Supple, full range of motion. SKIN: No visible rashes. CHEST: CTAB, no wheezes or rales CARDIOVASCULAR: HRRR, no m/r/g ABDOMEN: Soft, mild tenderness to palpation of epigastrium, not distended, incisions healin g well GROINS/: Deferred. EXTREMITIES: No edema, normal range of motion. NEUROLOGIC: Moves all extremities spontaneously. No apparent neurologic deficits. Cranial nerves 2-12 grossly intact. ASSESSMENT: Mynor Valdez is a 47 y.o. male patient who presents for routine one month follow-up of R YGB. He is recovering well, taking his omeprazole and multivitamins as prescribed and has be en relatively compliant with his diet, meeting fluid and protein goals. His one episode of r eflux is likely related to the spicy garlic olives that he ate. We discussed that he can adv ance his diet as tolerated. He is only taking metoprolol for his HTN and is hypertensive in clinic today. He may return to work without limitations. Work release signed in clinic today . PLAN: 1. Coater Helper visit today, may advance diet as tolerated 2. May wean off omeprazole 3. Make f/u appt with PCP to discuss blood pressure medications 4. F/u with us in 2 months 5. Return to work without limitations The patient was seen and discussed with attending physician, Dr. Altamirano, who is in agreemen t with the above plan of care. Sirisha Espitia, MS3 documented in this encou nter Plan of Treatment +--------+ + + + + | Date | Type | Specialty | Care Team | Description | +--------+ + + + + | 12/15/ | Office | Pre-operative | 2, [facility] [address] | | | 2019 | Visit | Medicine | [address] | | | | | | [place] [address] | | +--------+ + + + + | 01/04/ | Procedure | Surgery | | | | 2019 | Pass | | | | +--------+ + + + + | 01/25/ | Office | Otolaryngology | Santos Valdivia, | | | 2019 | Visit | | [address] | | | | | | [address] | | | | | | [place], [place] | | | | | | [address] | | | | | | [phone] | | | | | | | | +--------+ + + + + documented as of this encounter Visit Diagnoses + + | Diagnosis | + + | Aftercare following surgery - Primary Encounter for other specified aftercare | + + documented in this encounter
--- OUTSIDE RECORDS SUMMARY | ~2019-10-18 | XMS | Encounter Summary ---
Demographics + + + | Address | [address] | | | [place] [address] | + + + | Home Phone | | + + + | Preferred Language | Unknown | + + + | Marital Status | | + + + | Yazidi Affiliation | NRP | + + + | Race | White | + + + | Ethnic Group | Not or | + + + Author + + + | Author | [facility] | + + + | Organization | [facility] | + + + | Address | Unknown | + + + | Phone | Unavailable | + + + Support + + + + + | Name | Relationship | Address | Phone | + + + + + | Pooja Valdez | ECON | [address] | | | | | [place] | | | | | [address] | | + + + + + Care Team Providers + +------+ + | Care Casing Grader Name | Role | Phone | + +------+ + | Rian Sanchez MD | PCP | | + +------+ + Encounter Details +--------+------+ + + + | Date | Type | Department | Care Team | Description | +--------+------+ + + + | 07/08/ | Lab | Laboratory at [facility] | | Morbid obesity with | | 2016 | | [address] | | BMI of 40.0-44.9, | | | | [place], [place] | | adult ([facility]); Insulin | | | | [address] | | dependent diabetes | | | | [phone] | | mellitus ([facility]); | | | | | | Essential | | | | | | hypertension; | | | | | | Hyperlipidemia, | | | | | | unspecified | | | | | | hyperlipidemia type; | | | | | | JOSE on CPAP | +--------+------+ + + + Social History + +-------+ +--------+------+ | Tobacco Use | Types | Packs/Day | Years | Date | | | | | Used | | + +-------+ +--------+------+ | Former Smoker | | 0.75 | 6 | | + +-------+ +--------+------+ + +---+---+---+ | Smokeless Tobacco: | | [...] | 12/15/ | Office | Pre-operative | 2 [facility] [address] | | | 2019 | Visit | Medicine | [address] | | | | | | [place] [address] | | +--------+ + + + + | 01/04/ | Procedure | Surgery | | | | 2019 | Pass | | | | +--------+ + + + + | 01/25/ | Office | Otolaryngology | Santos Valdivia, | | | 2020 | Visit | | [address] | | | | | | [address] | | | | | | [place], [place] | | | | | | [address] | | | | | | [phone] | | | | | | | | +--------+ + + + + documented as of this encounter Procedures + +--------+ + + + | Procedure Name | Priori | Date/Time | Associated Diagnosis | Comments | | | ty | | | | + +--------+ + + + | CBC (HEMOGRAM) ONLY | Routin | 07/08/2017 | Morbid obesity | Results for this | | | e | 1:16 PM | with BMI of | procedure are in the | | | | PDT | 40.0-44.9, adult | results section. | | | | | (HCC) Insulin | | | | | | dependent diabetes | | | | | | mellitus (HCC) | | | | | | Essential | | | | | | hypertension | | | | | | Hyperlipidemia, | | | | | | unspecified | | | | | | hyperlipidemia type | | | | | | JOSE on CPAP | | + +--------+ + + + | VITAMIN B1, WHOLE | Routin | 07/08/2017 | Morbid obesity | Results for this | | BLOOD | e | 1:16 PM | with BMI of | procedure are in the | | | | PDT | 40.0-44.9, adult | results section. | | | | | (HCC) Insulin | | | | | | dependent diabetes | | | | | | mellitus (HCC) | | | | | | Essential | | | | | | hypertension | | | | | | Hyperlipidemia, | | | | | | unspecified | | | | | | hyperlipidemia type | | | | | | JOSE on CPAP | | + +--------+ + + + | VITAMIN D, | Routin | 07/08/2017 | Morbid obesity | Results for this | | 25-HYDROXY, SERUM | e | 1:16 PM | with BMI of | procedure are in the | | | | PDT | 40.0-44.9, adult | results section. | | | | | (HCC) Insulin | | | | | | dependent diabetes | | | | | | mellitus (HCC) | | | | | | Essential | | | | | | hypertension | | | | | | Hyperlipidemia, | | | | | | unspecified | | | | | | hyperlipidemia type | | | | | | JOSE on CPAP | | + +--------+ + + + | COMPLETE METABOLIC | Routin | 07/08/2017 | Morbid obesity | Results for this | | SET | e | 1:16 PM | with BMI of | procedure are in the | | (NA,K,CL,CO2,BUN,CRE | | PDT | 40.0-44.9, adult | results section. | | AT,GLUC,CA,AST,ALT,B | | | (HCC) Insulin | | | KARTHIK TOTAL,ALK | | | dependent diabetes | | | PHOS,ALB,PROT TOTAL) | | | mellitus (HCC) | | | | | | Essential | | | | | | hypertension | | | | | | Hyperlipidemia, | | | | | | unspecified | | | | | | hyperlipidemia type | | | | | | JOSE on CPAP | | + +--------+ + + + | CBC ONLY | Routin | 07/08/2017 | Morbid obesity | Results for this | | | e | 1:16 PM | with BMI of | procedure are in the | | | | PDT | 40.0-44.9, adult | results section. | | | | | (HCC) Insulin | | | | | | dependent diabetes | | | | | | mellitus (HCC) | | | | | | Essential | | | | | | hypertension | | | | | | Hyperlipidemia, | | | | | | unspecified | | | | | | hyperlipidemia type | | | | | | JOSE on CPAP | | + +--------+ + + + | PTH, SERUM | Routin | 07/08/2017 | Morbid obesity | Results for this | | | e | 1:16 PM | with BMI of | procedure are in the | | | | PDT | 40.0-44.9, adult | results section. | | | | | (HCC) Insulin | | | | | | dependent diabetes | | | | | | mellitus (HCC) | | | | | | Essential | | | | | | hypertension | | | | | | Hyperlipidemia, | | | | | | unspecified | | | | | | hyperlipidemia type | | | | | | JOSE on CPAP | | + +--------+ + + + | TSH | Routin | 07/08/2017 | Morbid obesity | Results for this | | | e | 1:16 PM | with BMI of | procedure are in the | | | | PDT | 40.0-44.9, adult | results section. | | | | | (HCC) Insulin | | | | | | dependent diabetes | | | | | | mellitus (HCC) | | | | | | Essential | | | | | | hypertension | | | | | | Hyperlipidemia, | | | | | | unspecified | | | | | | hyperlipidemia type | | | | | | JOSE on CPAP | | + +--------+ + + + | LIPID SET (TRIG, T | Routin | 07/08/2017 | Morbid obesity | Results for this | | CHOL, HDL, CALC LDL) | e | 1:16 PM | with BMI of | procedure are in the | | | | PDT | 40.0-44.9, adult | results section. | | | | | (HCC) Insulin | | | | | | dependent diabetes | | | | | | mellitus (HCC) | | | | | | Essential | | | | | | hypertension | | | | | | Hyperlipidemia, | | | | | | unspecified | | | | | | hyperlipidemia type | | | | | | JOSE on CPAP | | + +--------+ + + + | HEMOGLOBIN A1C, | Routin | 07/08/2017 | Morbid obesity | Results for this | | BLOOD | e | 1:16 PM | with BMI of | procedure are in the | | | | PDT | 40.0-44.9, adult | results section. | | | | | (HCC) Insulin | | | | | | dependent diabetes | | | | | | mellitus (HCC) | | | | | | Essential | | | | | | hypertension | | | | | | Hyperlipidemia, | | | | | | unspecified | | | | | | hyperlipidemia type | | | | | | JOSE on CPAP | | + +--------+ + + + documented in this encounter Results CBC (HEMOGRAM) ONLY (07/08/2017 1:16 PM PDT) + +---------+ + + + | Component | Value | Ref Range | Performed | Pathologist | | | | | At | Signature | + +---------+ + + + | WHITE CELL | 7.83 | 3.50 - 10.80 | [facility] | | | COUNT | | K/cu mm | LABORATORY | | | | | | SERVICES, | | | | | | [facility] | | | | | | [facility] | | + +---------+ + + + | RED CELL | 5.03 | 4.50 - 6.00 | [facility] | | | COUNT | | M/cu mm | LABORATORY | | | | | | SERVICES, | | | | | | [facility] + | | | | | | [facility] | | + +---------+ + + + | HEMOGLOBIN | 15.5 | 13.5 - 17.5 | [facility] | | | | | g/dL | LABORATORY | | | | | | SERVICES, | | | | | | [facility] + | | | | | | [facility] | | + +---------+ + + + | HEMATOCRIT | 45.2 | 41.0 - 53.0 % | [facility] | | | | | | LABORATORY | | | | | | SERVICES, | | | | | | [facility] + | | | | | | [facility] | | + +---------+ + + + | MCV | 89.9 | 80.0 - 96.0 fL | [facility] | | | | | | LABORATORY | | | | | | SERVICES, | | | | | | [facility] + | | | | | | [facility] | | + +---------+ + + + | MCHC | 34.3 | 33.0 - 35.5 | [facility] | | | | | g/dL | LABORATORY | | | | | | SERVICES, | | | | | | [facility] + | | | | | | [facility] | | + +---------+ + + + | RDW SD | 42.6 | 35.1 - 46.3 fL | [facility] | | | | | | LABORATORY | | | | | | SERVICES, | | | | | | [facility] + | | | | | | [facility] | | + +---------+ + + + | PLATELET | 199 | 150 - 400 K/cu | [facility] | | | COUNT | | mm | LABORATORY | | | | | | SERVICES, | | | | | | [facility] + | | | | | | [facility] | | + +---------+ + + + | MPV | 8.9 (L) | 9.7 - 12.3 fL | [facility] | | | | | | LABORATORY | | | | | | SERVICES, | | | | | | [facility] + | | | | | | [facility] | | + +---------+ + + + + + | Specimen | + + | Blood - Blood | | (substance) | + + + + + + + | Performing | Address | City/State/Zipcode | Phone Number | | Organization | | | | + + + + + | [facility] | [address] | [place] [address] | | | [facility] | | | | | HEALTH + HEALING | | | | + + + + + TSH (07/08/2017 1:16 PM PDT) + + + + + + | Component | Value | Ref Range | Performed | Pathologist | | | | | At | Signature | + + + + + + | TSH | 0.24 (L) | 0.44 - 4.75 | [facility] | | | | | mIU/L | LABORATORY | | | | | | [facility], | | | | | | CORE | | + + + + + + + + | Specimen | + + | Blood - Blood | | (substance) | + + + + + | Narrative | Performed At | + + + | TSH reference ranges are influenced by a variety of environmental | [facility] | | influences, age, gender and ethnicity. The supplied reference limits | LABORATORY | | are based on published values utilizing a similar TSH assay, and | SERVICES, CORE | | should be interpreted with caution. | | + + + + + + + + | Performing | Address | City/State/Zipcode | Phone Number | | Organization | | | | + + + + + | [facility] | [address] | [place] [address] | | | SERVICES, CORE | [address] | | | + + + + + LIPID SET (TRIG, T CHOL, HDL, CALC LDL) (07/08/2017 1:16 PM PDT) + +---------+ + + + | Component | Value | Ref Range | Performed | Pathologist | | | | | At | Signature | + +---------+ + + + | CHOLESTEROL | 162 | <200 mg/dL | [facility] | | | (LAB) | | | LABORATORY | | | | | | SERVICES, | | | | | | CORE | | + +---------+ + + + | TRIGLYCERID | 159 (H) | <150 mg/dL | [facility] | | | ES | | | LABORATORY | | | | | | SERVICES, | | | | | | CORE | | + +---------+ + + + | HDL | 39 (L) | >40 mg/dL | [facility] | | | CHOLESTEROL | | | LABORATORY | | | | | | SERVICES, | | | | | | CORE | | + +---------+ + + + | HDL CMNT | No Hemo | | [facility] | | | | | | LABORATORY | | | | | | SERVICES, | | | | | | CORE | | + +---------+ + + + | LDL | 91 | <100 mg/dL | [facility] | | | CHOLESTEROL | | | LABORATORY | | | , | | | SERVICES, | | | CALCULATED | | | CORE | | + +---------+ + + + | VLDL | 32 (H) | <31 mg/dL | [facility] | | | CHOLESTEROL | | | LABORATORY | | | , | | | SERVICES, | | | CALCULATED | | | CORE | | + +---------+ + + + | NON-HDL | 123 | <130 mg/dL | [facility] | | | CHOLESTEROL | | | LABORATORY | | | | | | SERVICES, | | | | | | CORE | | + +---------+ + + + + + | Specimen | + + | Blood - Blood | | (substance) | + + + + + | Narrative | Performed At | + + + | Cholesterol Reference Range: Desirable: <200 | [facility] | | mg/dL Borderline High: 200 - 239 mg/dL | LABORATORY | | High: >=240 mg/dL LDL Cholesterol | SERVICES, CORE | | Reference Range: Optimal: <100 mg/dL | | | Near Optimal: 100-129 mg/dL Borderline High: 130-159 | | | mg/dL High: 160-189 mg/dL | | | Very High: >=190 mg/dL non-HDL Cholesterol Reference Range: | | | Optimal: <130 mg/dL Near Optimal: | | | 130-159 mg/dL Borderline High: 160-189 mg/dL | | | High: 190-209 mg/dL Very High: | | | >=210 mg/dL Triglyceride Reference Range: | | | Normal: <150 mg/dL Borderline High: 150-199 mg/dL | | | High: 200-499 mg/dL Very High: >=500 mg/dL | | | HDL Reference Range: High Risk: <40 mg/dL | | | Desirable: >=60 mg/dL | | + + + + + + + + | Performing | Address | City/State/Zipcode | Phone Number | | Organization | | | | + + + + + | [facility] | [address] | [place] [address] | | | [address] | [address] | | | + + + + + HEMOGLOBIN A1C, BLOOD (07/08/2017 1:16 PM PDT) + + + + + + | Component | Value | Ref Range | Performed | Pathologist | | | | | At | Signature | + + + + + + | HEMOGLOBIN | 6.9 (H)Comment: Hgb A1C | <5.7 % | [facility] | | | A1C | Interpretive | | LABORATORY | | | | Information: | | SERVICES, | | | | <5.7% - Normal | | SPECIAL IMM | | | | 5.7-6.4% - Consistent | | + [facility] | | | | with pre-diabetes | | | | | | >6.4% - Consistent | | | | | | with diabetes | | | | | | | | | | + + + + + + + + | Specimen | + + | Blood - Blood | | (substance) | + + + + + | Narrative | Performed At | + + + | Alternate forms of testing such as fructosamine should be | [facility] | | considered for monitoring nursing home glycemic control in patients with: | LABORATORY | | Increased red cell turnover, certain hemoglobinopathies (e.g., HbS, | SERVICES, | | HbE, HbC and thalassemia syndromes), anemias, blood loss, chronic | SPECIAL IMM + | | liver disease and hemochromatosis (artefactually low HbA1c); iron | [facility] | | deficiency anemia (artefactually high HbA1c due to enhanced glycation | | | of hemoglobin). | | + + + + + + + + | Performing | Address | City/State/Zipcode | Phone Number | | Organization | | | | + + + + + | [facility] | [address] | [place] [address] | | | SERVICES, SPECIAL | [address] | | | | IMM + [place] | | | | + + + + + VITAMIN B1, WHOLE BLOOD (07/08/2017 1:16 PM PDT) + + + + + + | Component | Value | Ref Range | Performed | Pathologist | | | | | At | Signature | + + + + + + | VITAMIN B1, | 134Comment: INTERPRETIVE | 70 - 180 nmol/L | [facility] | | | WHOLE | INFORMATION: Vitamin | | REG UNIV | | | BLOOD | B1, Whole Blood This | | [facility] - [facility] | | | | assay measures the | | | | | | concentration of | | | | | | thiamine diphosphate | | | | | | (TDP), the primary | | | | | | active form of vitamin | | | | | | B1. Approximately 90 | | | | | | percent of vitamin B1 | | | | | | present in whole blood | | | | | | is TDP. Thiamine and | | | | | | thiamine monophosphate, | | | | | | which comprise the | | | | | | remaining 10 percent, | | | | | | are not measured. Test | | | | | | developed and | | | | | | characteristics | | | | | | determined by [facility] | | | | | | [facility]. See | | | | | | Compliance Statement B: | | | | | | [email or web address]SP[employer]formed | | | | | | by [employer],[address] | | | | | | [facility] | | | | | | [id number] | | | | | | [phone]. | | | | | | com, Laurent Deluna MD, | | | | | | Lab. Director | | | | + + + + + + + + | Specimen | + + | Blood - Blood | | (substance) | + + + + + + + | Performing | Address | City/State/Zipcode | Phone Number | | Organization | | | | + + + + + | [facility] | [address] | [place], [place] | | | UN[facility] | | [id number] | | + + + + + COMPLETE METABOLIC SET (NA,K,CL,CO2,BUN,CREAT,GLUC,CA,AST,ALT,BILI TOTAL,ALK PHOS,ALB,PROT TOTAL) (07/08/2017 1:16 PM PDT) + +---------+ + + + | Component | Value | Ref Range | Performed | Pathologist | | | | | At | Signature | + +---------+ + + + | GLUCOSE, | 125 (H) | 70 - 99 mg/dL | [facility] | | | PLASMA | | | LABORATORY | | | (LAB) | | | SERVICES, | | | | | | [facility] + | | | | | | [facility]ALING | | + +---------+ + + + | BUN, PLASMA | 14 | 6 - 20 mg/dL | [facility] | | | (LAB) | | | LABORATORY | | | | | | SERVICES, | | | | | | [facility] | [facility] + | | | | | | HEALING | | + +---------+ + + + | CREATININE | 1.00 | 0.70 - 1.30 | [facility] | | | PLASMA | | mg/dL | LABORATORY | | | (LAB) | | | SERVICES, | | | | | | [facility] | | [facility] + | | | | | | HEALING | | + +---------+ + + + | SODIUM, | 136 | 134 - 143 | [facility] | | | PLASMA | | mmol/L | LABORATORY | | | (LAB) | | | SERVICES, | | | | | | [facility] | | [facility] + | | | | | | HEALING | | + +---------+ + + + | POTASSIUM, | 3.9 | 3.4 - 5.0 | [facility] | | | PLASMA | | mmol/L | LABORATORY | | | (LAB) | | | SERVICES, | | | | | | [facility] | | | [facility] + | | | | | | HEALING | | + +---------+ + + + | CHLORIDE, | 107 | 97 - 108 mmol/L | [facility] | | | PLASMA | | | LABORATORY | | | (LAB) | | | SERVICES, | | | | | | [facility] | [facility] + | | | | | | HEALING | | + +---------+ + + + | TOTAL CO2, | 27 | 22 - 29 mmol/L | [facility] | | | PLASMA | | | LABORATORY | | | (LAB) | | | SERVICES, | | | | | | [facility] | [facility] + | | | | | | HEALING | | + +---------+ + + + | CALCIUM, | 9.0 | 8.6 - 10.2 | [facility] | | | PLASMA | | mg/dL | LABORATORY | | | (LAB) | | | SERVICES, | | | | | | [facility] | [facility] + | | | | | | HEALING | | + +---------+ + + + | BILIRUBIN | 0.8 | 0.3 - 1.2 mg/dL | [facility] | | | TOTAL | | | LABORATORY | | | | | | SERVICES, | | | | | | [facility] | | | | [facility] + | | | | | | HEALING | | + +---------+ + + + | TOTAL | 7.8 | 6.1 - 7.9 g/dL | [facility] | | | PROTEIN, | | | LABORATORY | | | PLASMA | | | SERVICES, | | | (LAB) | | | [facility] | | [facility] + | | | | | | HEALING | | + +---------+ + + + | ALBUMIN, | 3.9 | 3.5 - 4.7 g/dL | [facility] | | | PLASMA | | | LABORATORY | | | (LAB) | | | SERVICES, | | | | | | [facility] | [facility] | [facility] + | | | | | | HEALING | | + +---------+ + + + | ALK PHOS | 66 | 41 - 99 U/L | [facility] | | | | | | LABORATORY | | | | | | SERVICES, | | | | | | [facility] | [facility] + | | | | | | [facility]ALING | | + +---------+ + + + | AST(SGOT) | 43 (H) | <=41 U/L | [facility] | | | | | | LABORATORY | | | | | | SERVICES, | | | | | | [facility] | | [facility] + | | | | | | HEALING | | + +---------+ + + + | ALT (SGPT) | 34 | <=60 U/L | [facility] | | | | | | LABORATORY | | | | | | SERVICES, | | | | | | [facility] | | [facility] + | | | | | | HEALING | | + +---------+ + + + | ANION GAP | | mmol/L | [facility] | | | | | | LABORATORY | | | | | | SERVICES, | | | | | | [facility] | | [facility] + | | | | | | HEALING | | + +---------+ + + + | ANION | | 4 - 11 mmol/L | [facility] | | | GAP(ALB | | | LABORATORY | | | CORRECTED) | | | SERVICES, | | | | | | [facility] | [facility] | | [facility] + | | | | | | [facility]ALING | | + +---------+ + + + + + | Specimen | + + | Blood - Blood | | (substance) | + + + + + | Narrative | Performed At | + + + | Adult glucose reference range change effective 05-19-17. | [facility] | | | LABORATORY | | | SERVICES, | | | [facility] | [facility] + | | | HEALING | + + + + + + + + | Performing | Address | City/State/Zipcode | Phone Number | | Organization | | | | + + + + + | [facility] | [address] | [place] [address] | | | [facility] | | | | | HEALTH + HEALING | | | | + + + + + PTH, SERUM (07/08/2017 1:16 PM PDT) + +--------+ + + + | Component | Value | Ref Range | Performed | Pathologist | | | | | At | Signature | + +--------+ + + + | PTH, SERUM | 99 (H) | 12 - 77 pg/mL | [facility] | | | | | | LABORATORY | | | | | | SERVICES, | | | | | | CORE | | + +--------+ + + + + + | Specimen | + + | Blood - Blood | | (substance) | + + + + + + + | Performing | Address | City/State/Zipcode | Phone Number | | Organization | | | | + + + + + | [facility] | [address] | [place] [address] | | | SERVICES, CORE | [address] | | | + + + + + VITAMIN D, 25-HYDROXY, SERUM (07/08/2017 1:16 PM PDT) + + + + + + | Component | Value | Ref Range | Performed | Pathologist | | | | | At | Signature | + + + + + + | VITAMIN D | 28.3 (L) | 30 - 80 ng/mL | [facility] | | | 25 HYDROXY | | | LABORATORY | | | | | | SERVICES, | | | | | | CORE | | + + + + + + + + | Specimen | + + | Blood - Blood | | (substance) | + + + + + | Narrative | Performed At | + + + | Reference Interval: 0-18years: Deficiency: <20 ng/mL | [facility] | | Optimum level: >or=20 ng/mL | LABORATORY | | >18years: Deficiency: <20 | SERVICES, CORE | | ng/mL Insufficiency: 20-29 ng/mL | | | Optimum Level: 30-80 ng/mL High: | | | 81-150 ng/ml Toxic: >150 ng/mL | | + + + + + + + + | Performing | Address | City/State/Zipcode | Phone Number | | Organization | | | | + + + + + | [facility] | [address] | [place] [address] | | | SERVICES, CORE | [address] | | | + + + + + documented in this encounter Visit Diagnoses + + | Diagnosis | + + | Morbid obesity with BMI of 40.0-44.9, adult ([facility]) | + + | Insulin dependent diabetes mellitus ([facility]) Type II or unspecified type diabetes | | mellitus without mention of complication, not stated as uncontrolled | + + | Essential hypertension | + + | Hyperlipidemia, unspecified hyperlipidemia type | + + | JOSE on CPAP Obstructive sleep apnea (adult) (pediatric) | + + documented in this encounter"
--- OUTSIDE RECORDS SUMMARY | ~2019-10-18 | XMS | Encounter Summary ---
Demographics + + + | Address | [address] [facility] [address] | | | [place] [address] | + + + | Home Phone | | + + + | Preferred Language | Unknown | + + + | Marital Status | | + + + | Faith Affiliation | NRP | + + + | Race | White | + + + | Ethnic Group | Not or | + + + Author + + + | Organization | Unknown | + + + | Address | Unknown | + + + | Phone | Unavailable | + + + Support + + + + + | Name | Relationship | Address | Phone | + + + + + | Pooja Valdez | ECON | [address] | | | | | [place] | | | | | [address] | | + + + + + Care Team Providers + +------+ + | Care Chief School Finance Officer Name | Role | Phone | + +------+ + PCP | Unavailable | + +------+ + Encounter Details +--------+ + + + + | Date | Type | Department | Care Team | Description | +--------+ + + + + | 02/18/ | Office | | Report, Outpatient | Progress Note | | 2006 | Visit-Trans | | Consultation | | | | cribed | | | | +--------+ + + + + Social History + +-------+ +--------+------+ | Tobacco Use | Types | Packs/Day | Years | Date | | | | | Used | | + +-------+ +--------+------+ | Never Assessed | | | | | + +-------+ +--------+------+ + + + | Sex Assigned at [...] + + documented as of this encounter Progress Notes Interface, Police Liaison Officer In - 02/24/2006 2:08 AM PDT [id number] DELMA PAULSON Consulting Physician: Santos Kwan MD, MPH, FACS Consultation Date: 02/18/2006 Subjective: Mr. Valdez is a 35-year-old gentleman who underwent endoscopic sinus surgery on February 09, 2006. He was subsequently admitted to our service at [facility] after being found have an intracranial bleed following endoscopic sinus surgery at an outside facility, in [place]. He was admitted to our service on February 13, 2006, and kept him in the hospital for 3 days for observation. At that time, he underwent repeat heat CT and an imaging evaluation to try to find a skull base defect corresponding with the source of his bleeding. He did quite well in the hospital on IV antibiotics and was discharged to home in stable condition 72 hours ago. 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 Due to lack of access to Neurosurgery and imaging, he was transferred to our institution for further management. He states that the headache came on suddenly last night. He has had no nausea or vomiting. He does describe some photophobia. He has had no change in his vision. He does not describe any neck pain or neck tenderness. He has had no rhinorrhea. Otherwise, he has no complaints other than a worsening headache which is similar to his headache prior to admission to our service recently. Objective: Vital Signs: Afebrile, and vital signs are stable. General: Mr. Valdez is pleasant gentleman in no apparent distress. He does appear to be somewhat lethargic. HEENT: The face is symmetric. Extraocular movements are intact. Pupils are equal, round, and reactive to light and accommodation. Vision is grossly intact. Intranasal exam is unremarkable. There is no rhinorrhea. Intraoral exam show no masses or lesions. Neurologic: Cranial nerves 2 through 12 are grossly intact. Neck: Obese and supple. There is no cervical lymphadenopathy. Imaging: A repeat CT head was obtained which actually appears to show interval decrease in size of the intracranial hemorrhage. There is no evidence of abscess. There is no evidence of new source of bleeding. Assessment and Plan: Mr. Valdez is a 35-year-old gentleman with a history of an intracranial bleed after endoscopic sinus surgery. He has returned to our institution due to worsening headache. Clinically, he appears to be stable. On imaging, his intracranial bleed appears to be improved over his last study. However, given his history and our concern for intracranial complication, especially meningitis, we would like to obtain the input of our Neurosurgical Service. Further, we would like to have the lumbar puncture performed by the Emergency Department of Neurosurgical Team for further evaluation of meningitis. Based on these findings and the input of the Neurosurgical Service, we will proceed with our plan. However, our expectation is to keep Mr. Valdez in the hospital regardless of the findings for observation. This plan was discussed at length with Dr. Santos Kwan. Anson Gomez M.D., Ph.D. Santos Kwan MD, MPH, FACS Director, [facility] Professor of Otolaryngology/Head and Neck Surgery / [id number] / [id number] / [id number] / Electronically signed by Santos Kwan 02-23-2006 08:04:28 AM documented i n this encounter Plan of Treatment +--------+ + + + + | Date | Type | Specialty | Care Team | Description | +--------+ + + + + | 12/15/ | Office | Pre-operative | 2, [facility] [place] [facility] [address] | | | 2020 | Visit | Medicine | [address] | | | | | | [place] [address] | | +--------+ + + + + [...] [address] | | | | | | [place] | | | | | | [address] | | | | | | [phone] | | | | | | | | +--------+ + + + + documented as of this encounter Visit Diagnoses Not on filedocumented in this encounter"
--- OUTSIDE RECORDS SUMMARY | ~2019-10-18 | XMS | Encounter Summary ---
Demographics + + + | Address | [address] | | | [place] [address] | + + + | Home Phone | | + + + | Preferred Language | Unknown | + + + | Marital Status | | + + + | Sabianism Affiliation | NRP | + + + | Race | White | + + + | Ethnic Group | Not or | + + + Author + + + | Author | [facility] | + + + | Organization | [facility] | + + + | Address | Unknown | + + + | Phone | Unavailable | + + + Support + + + + + | Name | Relationship | Address | Phone | + + + + + | Pooja Valdez | ECON | [address] | | | | | [place] | | | | | [phone] | | + + + + + Care Team Providers + +------+ + | Care Change Manager Name | Role | Phone | + +------+ + | Hemalatha Lawrence PA-C | PCP | | + +------+ + Reason for Visit AUTH/CERT +--------+--------+ + + + + | Status | Reason | Specialty | Diagnoses / | Referred By | Referred To | | | | | Procedures | Contact | Contact | +--------+--------+ + + + + | | | | | | | +--------+--------+ + + + + Encounter Details +--------+ + + + + | Date | Type | Department | Care Team | Description | +--------+ + + + + | 01/17/ | Hospital | [facility] [address] | Arvin Lerner, | | | 2018 - | Encounter | [address] | [address] | | | | | [place], [place] | [place], [place] | | | 01/19/ | | [address] | [phone] | | | 2017 | | [phone] | [phone] | | | | | | | [...] + + + | Blood Pressure | 129/67 | 01/19/2018 8:38 AM | | | | | PDT | | + + + + + | Pulse | 76 | 01/19/2018 8:38 AM | | | | | PDT | | + + + + + | Temperature | 36.9 C (98.4 F) | 01/19/2018 8:38 AM | | | | | PDT | | + + + + + | Respiratory Rate | 16 | 01/19/2018 8:38 AM | | | | | PDT | | + + + + + | Oxygen Saturation | 92% | 01/19/2018 8:38 AM | | | | | PDT | | + + + + + | Inhaled Oxygen | - | - | | | Concentration | | | | + + + + + | Weight | 149.3 kg (329 lb 2.4 | 01/18/2018 4:41 AM | | | | oz) | PDT | | + + + + + | Height | 188 cm (6' 2") | 01/17/2018 9:00 PM | | | | | PDT | | + + + + + | Body Mass Index | 42.26 | 01/17/2018 9:00 PM | | | | | PDT | [...] + + documented as of this encounter Discharge Summaries Tonia Greenberg ACNP - 01/19/2018 9:28 AM PDT [facility] RED SURGERY INPATIENT DISCHARGE SUMMARY Author: DANIEL Mclean Attending Physician: Arvin Lerner MD PCP: Hemalatha Lawrence PA-C Admission Date: 01/17/2018 Discharge Date: 19 Jan 2018 Diagnoses Patients Hospital Problem List: Active Hospital Problems 1) *Morbid obesity with BMI of 40.0-44.9, adult (HCC) 2) Insulin dependent diabetes mellitus (HCC) 3) Essential hypertension 4) Hyperlipidemia 5) JOSE on CPAP 6) Acute post-operative pain Procedure 01/17/2018 Laparoscopic barby en Y gastric bypass Brief Hospital Course Mynor Valdez is a 47 y.o. man with a history of morbid obesity. He was admitted on 2017 for the listed procedure. He tolerated the procedure well with no operative complicatio ns. He recovered briefly in the PACU before being transferred to the rico for observation. P ostoperatively, he was placed on a bariatric clear liquid diet. Overnight he was able to to lerate clear liquids well. On postoperative day 1, he was tolerating bariatric clear liquids well, thus he was advanced to a bariatric full liquid diets. Our bariatric dietitian was co nsulted and they discussed his postoperative diet instructions. On day of discharge, his vit al signs were stable, he was tolerating full liquid diet, pain was well controlled with oral pain medications, incision sites were clean, dry and intact, and was ambulating and voiding without difficulty. Thus, he was deemed stable for discharge. Discharge instructions have b een reviewed with the patient and all questions have been answered. We will have him follow up with our Bariatric Nurse Practitioner in 1 week and his surgeon, Dr. Arvin Lerner MD in approximately 4 weeks. Secondary to his insulin dependent diabetes, our endocrinology team was consulted. Per thei r recommendations he was placed on insulin sliding scale post operatively. For discharge the ir recommendations include: stopping scheduled insulin and victoza. Start taking metformin X R 500mg once daily and to check his blood sugars twice per day. If his blood sugars are cons istently higher than 200 to call his [facility] care provider/elderly sitter to discuss adjust ment. 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 He should make a fol low up in 1 week with his PCP/elderly sitter to discuss further diabetes management. Additionally, his extended release medications were changed to immediate release due to lee nge in absorption following gastric bypass. He was given a 30 day supply of these medication s and instructed to make a follow up appointment with his PCP in 1-2 weeks for continued man agement of his chronic conditions and home medications. Medications: Medication List START taking these medications acetaminophen 325 mg Tab Commonly known as: TYLENOL Take 2 tablets by mouth every four hours as needed. buPROPion 75 mg Tab Commonly known as: WELLBUTRIN Take 2 tablets by mouth two times daily. Replaces: buPROPion XL 300 mg Tb24 glycerin (ADULT) Supp Unwrap and insert 1 suppository rectally once daily as needed (constipation). Remove foil w rapper, insert 1 suppository into rectum and retain for about 15 minutes. metFORMIN SR 500 mg Tb24 Commonly known as: GLUCOPHAGE XR Take 1 tablet by mouth once daily. Administer with evening meal. metoprolol tartrate 100 mg Tab Commonly known as: LOPRESSOR Take 1 tablet by mouth two times daily. omeprazole 20 mg Cpdr Commonly known as: PRILOSEC Take 1 capsule by mouth once daily. Open capsule and mix granules with a small amount of mock gar-free pudding or yogurt, swallow immediately (do not chew) with a glass of water. ondansetron ODT 4 mg Tbdi Commonly known as: ZOFRAN ODT Dissolve 1 tablet on tongue and swallow every six hours as needed for nausea/vomiting. oxyCODONE (immediate release) 5 mg Tab Commonly known as: ROXICODONE Take 1 to 3 tablets by mouth every four hours as needed for moderate or severe pain. polyethylene glycol 17 gram Pwpk Commonly known as: MIRALAX Mix 1 packet and take orally once daily as needed (constipation). simethicone chew 80 mg Chew Commonly known as: MYLICON Chew and swallow 1 tablet three times daily as needed for bloating (gas pain). ursodiol 250 mg Tab Commonly known as: ACTIGALL Take 1 tablet by mouth two times daily. Start taking this 2 weeks after surgery Start taking on: 02/01/2018 CHANGE how you take these medications gabapentin 300 mg Cap Commonly known as: NEURONTIN What changed: additional instructions CONTINUE taking these medications atorvastatin 10 mg Tab Commonly known as: LIPITOR Take 1 tablet by mouth once daily. B-12 PLUS 5,000-100 mcg Subl Generic drug: Cyanocobalamin-Cobamamide Cholecalciferol (Vitamin D3) 2,000 unit Tab Take 1 tablet by mouth once daily. Indications: Vitamin D Deficiency DULoxetine 60 mg Cpdr Commonly known as: CYMBALTA iron gly,[id number] 150 mg iron-200 mg-250 mcg Tab L-METHYLFOLATE ORAL levothyroxine 200 mcg Tab lisinopril 5 mg Tab Commonly known as: PRINIVIL Take 1 tablet by mouth once daily STOP taking these medications buPROPion XL 300 mg Tb24 Commonly known as: WELLBUTRIN-XL Replaced by: buPROPion 75 mg Tab HumaLOG KwikPen Insulin 100 unit/mL Inpn Generic drug: insulin lispro (Human) metoprolol succinate 200 mg Tb24 Commonly known as: TOPROL-XL TRESIBA FLEXTOUCH U-200 200 unit/mL (3 mL) Inpn Generic drug: insulin degludec VICTOZA 2-CAITLIN 0.6 mg/0.1 mL (18 mg/3 mL) Pnij Generic drug: liraglutide Bariatric Diet a. You will be on FULL liquid diet. Try to take 48-64 ounces daily. Liquids should be of a thin consistency and liquids should be able to be poured from cup to cup. b. Aim for 60-80 grams of protein per day from list of foods listed in your bariatric book or in the handout provided by your dietitian prior to discharge. You will remain on this d iet for 2-3 weeks. Do not advance your diet until you are seen in clinic. c. Patient may take medication tablets < or = to 1.30 cm (0.5 inch, approximately the size of a regular M&M). Otherwise, break the pill into that size. If medication is a capsule, op en capsule. Full Liquid Diet Continue your Full Liquid Diet at home. This includes protein drinks, cream of wheat, yogu rt without fruit and clear liquids. Activity a. Do not do any strenuous exercise until your provider has given you permission to do so. b. Walking will be your main form of physical activity. It is important to move frequently throughout the day, increasing your activity level and walking often. It is important to st art slow, but increase your activity each day. c. Do not drive while on narcotic medications. d. Follow abdominal precautions. Wound Care Keep incision clean and dry. No dressings are needed. You may shower. Please pat incisional area dry. Do not rub the incisions; allow for crust to fall off on its own. No baths, hot tubs or swimming for 2 weeks if laparoscopic and 4 weeks if open surgery. Probiotics Consume 1 tablespoon twice per day of foods containing live active cultures (probiotics) mock ch as low fat yogurt or kefir. Pinky's Yogurt or Kefir, TasteSpace Yogurt, and Run2Sport[employer] i [place] Yogurt are common brands with beneficial probiotics. Dehydration Dehydration: It is extremely important for you to stay hydrated. You should be taking in 64 ounces of fluid daily. You should also be urinating at least four times a day. Please monit or and record your daily fluid intake, and report to us immediately if you are not urinating at least four times a day or are experiencing pain with urination. Medication Instructions Medication Instructions: Please cut pills with pill cutter into particles the size of a M&M. Take particles with sma ll amount of sugar-free liquid, pudding or yogurt. If unable to cut, please crush pills. If any of your medications come in capsule form, please open capsule and empty contents into sm all amount of sugar-free liquid or yogurt. Take entire contents via mouth. Vitamins Vitamins: You will begin taking your vitamins after your first 1 week post operative visit with the Nurse Practitioner. If your insurance does not cover vitamins, they are available over the counter at most [facility]. Nausea/Vomiting/Difficulty Swallowing Nausea/Vomiting/Difficulty swallowing: Could be from not ingesting appropriate food/drink, eating too much or too fast. Do not drink with meals, leave at least 30 minutes between eati ng and drinking to decrease overfilling of the stomach. Take nausea medication provided to y ou if you feel nauseated. It is important that you meet your goal of fluid intake (64 ounces /day) Malaise (Feeling tired) Malaise (Feeling tired): It is very normal to feel tired after surgery for the first two we eks. It is important to be active, and you should feel a little bit better each day. Primary Care Provider Follow Up Primary Care Provider Follow Up: a) Primary care follow up is extremely important. You need to make a follow up appointment with your Primary Care Provider in 2 weeks. It is especially important to do so if you are on medications for your blood pressure or for diabetes. At this appointment your provider wi ll review your medications and make the necessary changes--if needed. b) Before your primary care visit, please check your blood sugar and blood pressure regula rly and keep a record of them to show your primary care provider. At your primary care provi ebony follow up visit, they will use your blood pressure and blood sugar numbers to adjust you r medications as needed. c) Diabetes -- Monitoring your blood sugar during your immediate post operative period i s important. You are at risk for hypoglycemia (low blood sugar), therefore it is important t o monitor your blood sugar levels in the immediate postoperative period and especially when taking medications for your diabetes. Early symptoms of hypoglycemia include: -Confusion. -Dizziness. -Feeling shaky. -Hunger. -Headaches. -Irritability. -Pounding heart; racing pulse. -Pale skin. If you experience any of these symptoms, please check your blood sugar level. If it is lowe r than 75, please eat something to increase your blood glucose and call your primary care pr ovider immediately for further instructions. d) Hypertension --It is important to check your blood pressure before any blood pressure medications a re taken due to your risk for hypotension (low blood pressure). Please check your blood pres sures if you are feeling dizzy or lightheaded, and especially if you notice these symptoms w hile changing from a lying to sitting to standing position. --Symptoms of Low Blood Pressure (hypotension) include: -Dizziness or lightheadeness -Fainting (syncope) -Lack of concentration -Blurred vision -Nausea -Cold, clammy, pale skin -Fatigue -Thirst Constipation Prevention It is very important to avoid constipation and straining while trying to have a bowel movem ent. It is common to experience constipation after your operation and when taking narcotics. Please use laxative medications such Polyethylene glycol (Miralax) or glycerin suppositorie s to assist you with having regular bowel movements. Please work towards having a bowel mov ement every 1-2 days. A hot drink each morning will also help the sphincter to work in pushi ng the stool forward. It is important to stay hydrated, about 45-60 fluid ounces daily, and this will help your bowel function. Pain Instructions It is expected that you will experience pain after your operation, and it is important to h ave you manage your pain to increase your activity, sleep and overall healing. You will have a prescription for pain relief. This should be taken every 3-6 hours per your instructions. Some medications, like [employer], have Tylenol in it. Make sure you do not take more than 4,000 mg of Tylenol or acetaminophen in 24 hours. Pain Tapering Instructions Your pain should slowly and steadily diminish as you heal. If your pain level at the surger y site increases, you should call us. It is normal for increased pain if you are overly acti ve or you decrease your pain medication, but a significant and unexplained increase in pain should be discussed with your surgeon. Pain medication is usually necessary for only 4-5 day s postoperatively. It is important to have a plan for tapering off of pain medication. Con sult your pharmacist to construct a proper tapering schedule. Clinic staff is able to help you develop a tapering schedule as well. Please be aware that if you have chronic pain issue s, or you require pain medication for an extended period of time, you will likely be given i nstructions to follow up with your PCP or a pain management provider. Refill Instructions: Your pain medications should be taken as needed, as prescribed by your healthcare provider. You should plan to taper down your dosing within the first 2-3 days postop. Refills are n ot available outside of clinic hours or on weekends or holidays. Narcotic pain medications require a written prescription and must be signed by a provider and mailed to you or picked up. If you need ongoing pain medication beyond the usual recovery period, you will be direc indra to follow up with your primary care provider (PCP) as this clinic does not provide [facility] chronic pain management services. When to Call the Doctor When to Call the Doctor - If your incision becomes red, swollen, or has any bloody or pus-like drainage. - If you have a fever of 101.5 F or greater or if you have chills. - If you have increased pain, unrelieved by your pain medications. - If you have persistent nausea, vomiting, diarrhea, or no bowel movement for more than 2 d ays after discharge from the hospital. - If you develop any unusual signs or symptoms, including chest pain, shortness of breath, pulmonary embolism, leg swelling, pain or redness that is abnormal for you, and other sympto ms of concern. - If you have any questions or concerns. How to Call the Doctor - You may contact your doctor Wednesday through Wednesday during the daytime hours by calling the surgery office at [phone]. - After hours, weekends and holidays, you may call the hospital production line operator at [phone] an d have the direct sales professional [facility] Team paged. Destination Home Condition Stable Vitals on discharge: Ht 1.88 m (6' 2"), Wt 149.3 kg (329 lb 2.4 oz), BP 118/68, Pulse 75, T emperature 36.6 C (97.9 F), RR 16, SpO2 92%, BMI 42.26 kg/(m^2). Outstanding labs/studies: None Physical Exam General: Alert, oriented, NAD Respiratory: Breathing comfortably Cardiovascular: RRR Abdomen: soft, appropriately tender, non distended, lap incisions sites are without drainag e, surrounding erythema or induration. Extremities: warm, well perfused, no edema noted Future Appointments Provider Department Dept Phone Center 01/25/2018 8:30 AM Celestina Madrigal [facility] 6th Floor [phone] F OOD AND NUT 01/25/2018 10:20 AM Kaylee Purcell [facility] 6th Floor [phone] D ig Health 02/25/2018 11:00 AM Arvin Lerner [facility] 6th Floor [phone] Di g Health 02/25/2018 1:00 PM Keylillian Castellano [facility] 6th Floor [phone] FO OD AND NUT 04/15/2018 10:50 AM Tonia Greenberg [facility] 6th Floor [phone] Dig Hea [facility] 04/15/2018 11:30 AM Angie David [facility] 6th Floor [phone] FOOD AND NUT 04/19/2018 2:50 PM Rian Sabillon [facility] 15th Floor [phone] Comprehensiv Discharging Physician: DANIEL Mclean Attending Physician: Arvin Lerner MD [facility] Red Surgery Pager# [phone] 9:28 AM 01/19/2018 documented in this enco unter Discharge Instructions Instructions Zamzam Gillespie RN - 01/19/2018 Discharge Nurse: Zamzam Gillespie RN Date: 01/19/2018 Discharge Time: 10:40 AM documented in this encounter Medications at Time of Discharge + + + +---------+ + + | Medication | Sig | Dispensed | Refills | Start | End Date | | | | | | Date | | + + + +---------+ + + | buPROPion 75 mg | Take 2 tablets by | 120 | 0 | 01/19/20 | | | oral tablet | mouth two times | tablet | | 18 | | | | daily. | | | | | + + + +---------+ + + | | Place under tongue. | | 0 | | | | Cyanocobalamin-Cobam | | | | | | | amide (B-12 PLUS) | | | | | | | 5,000-100 mcg | | | | | | | sublingual tablet, | | | | | | | sublingual | | | | | | + + + +---------+ + + | DULoxetine 60 mg | Take 1 capsule by | | 0 | 01/20/20 | | | oral capsule,delayed | mouth once daily. | | | 18 | | | release(DR/EC) | Please open capsule | | | | | | | and sprinkle | | | | | | | contents on acidic | | | | | | | juice or apple sauce | | | | | | | (prefer sugar free | | | | | | | or low sugar) | | | | | + + + +---------+ + + | gabapentin 300 mg | Take 1 capsule by | | 0 | 01/19/20 | | | oral capsule | mouth three times | | | 18 | | | | daily. Please open | | | | | | | capsule and empty | | | | | | | contents into small | | | | | | | amount of sugar free | | | | | | | liquid or yogurt. | | | | | | | Take entire contents | | | | | | | via mouth. | | | | | + + + +---------+ + + | iron | Take 5,000 mcg by | | 0 | | | | gly,[id number]-hy-ohs | mouth once daily. | | | | | | olate 150 mg | | | | | | | iron-200 mg-250 mcg | | | | | | | oral tablet | | | | | | + + + +---------+ + + | LEVOMEFOLATE | Take 15 mcg by mouth | | 0 | | | | CALCIUM | once daily. | | | | | | (L-METHYLFOLATE | | | | | | | ORAL) | | | | | | + + + +---------+ + + | levothyroxine 200 | Take 200 mcg by | | 0 | 04/15/20 | | | mcg oral tablet | mouth once daily. 6 | | | 17 | | | | days a week per pt. | | | | | + + + +---------+ + + | metoprolol | Take 1 tablet by | 60 | 0 | 01/19/20 | | | tartrate 100 mg oral | mouth two times | tablet | | 18 | | | tablet | daily. | | | | | + + + +---------+ + + | omeprazole 20 mg | Take 1 capsule by | 90 | 0 | 01/19/20 | | | oral capsule,delayed | mouth once daily. | capsule | | 18 | 8 | | release(DR/EC) | Open capsule and mix | | | | | | | granules with a | | | | | | | small amount of | | | | | | | sugar-free pudding | | | | | | | or yogurt, swallow | | | | | | | immediately (do not | | | | | | | chew) with a glass | | | | | | | of water. | | | | | + + + +---------+ + + documented as of this encounter Progress Notes Amara Saleem MD - 01/18/2018 8:20 AM PDT Department of Surgery Division of Foregut/Bariatric Surgery Inpatient Progress Note Author: Amara Saleem MD Attending Physician: Arvin Lerner MD 01/18/18, 8:21 AM Hospital Day #: 1 Post Operative Day #: 1 Procedures: 01/17/18: Laparoscopic Barby-en-Y Gastric Bypass (antecolic) Esophagogastroduodenostopy ID: Mynor Valdez is a 47 y.o. year old male with a history of morbid obesity BMI 41.5, T2DM, HTN, and HLD who is s/p laparoscopic Barby-en-Y gastric bypass. INTERVAL EVENTS: - AF, VSS - Required straight cath x1 postoperatively, started flomax, now voiding independently - NPO with CBGs 163-208 on moderate SSI per endocrine recs - Home medications transitioned from extended release forms to immediate release with BID d osing per pharmacy recs after bypass PHYSICAL EXAM: Last 24 hour min/max Temp: 37.1 C (98.8 F) Temp Min: 36 C (96.8 F) Max: 37.1 C (98.8 F) Pulse: 67 Pulse Min: 67 Max: 85 Resp: 14 Resp Min: 12 Max: 22 BP: 96/50 BP Min: 96/50 Max: 144/77 SpO2: 95 % SpO2 Min: 91 % Max: 100 % Body mass index is 42.26 kg/m. Last Vitals: BP 96/50 | Pulse 67 | Temp 37.1 C (98.8 F) | RR 14 | Ht 1.88 m (6' 2") | W t 149.3 kg (329 lb 2.4 oz) | SpO2 95% | BMI 42.26 kg/(m^2) Intake/Output Summary (Last 24 hours) at 01/18/18 0821 Last data filed at 01/18/18 0600 Gross per 24 hour Intake 6165 ml Output 1050 ml Net 5115 ml General: Resting comfortably in bed HEENT: Sclerae anicteric, EOMI, MMM Respiratory: Unlabored on RA CV: RRR Abdomen: soft, nondistended, appropriately tender; incisions c/d/i with dermabond and dress ing in place Labs: Recent Labs 01/17/18 1719 01/17/18 2348 01/18/18 0544 GLU 208* 175* 163* ASSESSMENT AND PLAN: Mynor Valdez, a 47 y.o. male with a history of morbid obesity BMI 41.5, T2DM, HTN, and H LD who is POD#1 s/p laparoscopic Barby-en-Y gastric bypass. He is doing well this morning wi thout nausea, voiding independently, and pain well-controlled. - Advance to bariatric CLD today. Will saline lock mIVF when tolerating PO. - Nutrition consult in place - Vitamin supplementation per pathway: thiamine, B12, probiotic - Continue moderate SSI for CBG management per endocrine recs - Continue flomax given urinary retention overnight. Anticipate discontinuing this prior t o discharge. - PPI: omeprazole - Pain control: tylenol, oxycodone, HM IV PRN - Nausea control: zofran, compazine - Continue home meds: metoprolol, wellbutrin, cymbalta, levothyroxine - Bowel regimen in place Amara Saleem MD Resident Physician, PGY-1 [facility] pgr [phone] Associated attestation - Arvin Lerner MD - 01/18/2018 9:15 AM PDTI have seen and exami serina the patient. I concur with the surgical team assessment and plan. Mynor is doing well this am, tolerating po intake. The pt has good uop, is walking, and pain is well controlled. He feels ready to try more liquids but reports his stomach feels very full after meds. abd- soft, ntnd, incisions all d/c/i Plan: - Jason stage 1 diet this am, and can transition to stage 2 later today. Appreciate endo input on DM2 management on restrictive diet. Shower today Dc today vs tomorrow- likely tomorrow for insulin management. Electronically signed on 01/18/2018 at 9:14 AM ARVIN LERNER MD. documented in this encounter Plan of Treatment +--------+ + + + + | Date | Type | Specialty | Care Team | Description | +--------+ + + + + | 12/15/ | Office | Pre-operative | 2, [facility] [address] | | | 2019 | Visit | Medicine | [address] | | | | | | [place] [address] | | +--------+ + + + + | 01/04/ | Procedure | Surgery | | | | 2019 | Pass | | | | +--------+ + + + + | 01/25/ | Office | Otolaryngology | [place] Val[place]ia, | | | 2019 | Visit | | [address] | | | | | | [address] | | | | | | [place], [place] | | | | | | [address] | | | | | | [phone] | | | | | | | | +--------+ + + + + documented as of this encounter Procedures + +--------+ + + + | Procedure Name | Priori | Date/Time | Associated Diagnosis | Comments | | | ty | | | | + +--------+ + + + | CAPILLARY BLOOD | Routin | 01/19/2018 | Morbid obesity | Results for this | | GLUCOSE (NO CHG), | e | 8:38 AM | with BMI of | procedure are in the | | POC | | PDT | 40.0-44.9, adult | results section. | | | | | (HCC) | | + +--------+ + + + | X-RAY CHEST 1 VIEW | Routin | 01/19/2018 | | Results for this | | | e | 1:36 AM | | procedure are in the | | | | PDT | | results section. | + +--------+ + + + | CBC (HEMOGRAM) ONLY | Urgent | 01/19/2018 | | Results for this | | | | 1:23 AM | | procedure are in the | | | | PDT | | results section. | + +--------+ + + + | TROPONIN I, PLASMA | Routin | 01/19/2018 | | Results for this | | | e | 1:23 AM | | procedure are in the | | | | PDT | | results section. | + +--------+ + + + | BASIC METABOLIC SET | Urgent | 01/19/2018 | | Results for this | | (NA, K, CL, TCO2, | | 1:23 AM | | procedure are in the | | BUN, CR, GLU, CA) | | PDT | | results section. | + +--------+ + + + | CBC ONLY | Urgent | 01/19/2018 | | Results for this | | | | 1:23 AM | | procedure are in the | | | | PDT | | results section. | + +--------+ + + + | 12 LEAD ECG | Routin | 01/19/2018 | | Results for this | | | e | 1:19 AM | | procedure are in the | | | | PDT | | results section. | + +--------+ + + + | CAPILLARY BLOOD | Routin | 01/18/2018 | Morbid obesity | Results for this | | GLUCOSE (NO CHG), | e | 9:48 PM | with BMI of | procedure are in the | | POC | | PDT | 40.0-44.9, adult | results section. | | | | | (HCC) | | + +--------+ + + + | CAPILLARY BLOOD | Routin | 01/18/2018 | Morbid obesity | Results for this | | GLUCOSE (NO CHG), | e | 3:29 PM | with BMI of | procedure are in the | | POC | | PDT | 40.0-44.9, adult | results section. | | | | | (HCC) | | + +--------+ + + + | CAPILLARY BLOOD | Routin | 01/18/2018 | Morbid obesity | Results for this | | GLUCOSE (NO CHG), | e | 5:44 AM | with BMI of | procedure are in the | | POC | | PDT | 40.0-44.9, adult | results section. | | | | | (HCC) | | + +--------+ + + + | CAPILLARY BLOOD | Routin | 01/17/2018 | Morbid obesity | Results for this | | GLUCOSE (NO CHG), | e | 11:48 PM | with BMI of | procedure are in the | | POC | | PDT | 40.0-44.9, adult | results section. | | | | | (HCC) | | + +--------+ + + + | PROCEDURE NOTE | Routin | 01/17/2018 | | Results for this | | | e | 6:25 PM | | procedure are in the | | | | PDT | | results section. | + +--------+ + + + | CAPILLARY BLOOD | Routin | 01/17/2018 | Morbid obesity | Results for this | | GLUCOSE (NO CHG), | e | 5:19 PM | with BMI of | procedure are in the | | POC | | PDT | 40.0-44.9, adult | results section. | | | | | (HCC) | | + +--------+ + + + | CAPILLARY BLOOD | Routin | 01/17/2018 | Morbid obesity | Results for this | | GLUCOSE (NO CHG), | e | 1:47 PM | with BMI of | procedure are in the | | POC | | PDT | 40.0-44.9, adult | results section. | | | | | (HCC) | | + +--------+ + + + | CAPILLARY BLOOD | Routin | 01/17/2018 | Morbid obesity | Results for this | | GLUCOSE (NO CHG), | e | 12:59 PM | with BMI of | procedure are in the | | POC | | PDT | 40.0-44.9, adult | results section. | | | | | (HCC) | | + +--------+ + + + | DIAGNOSTIC UPPER | Routin | 01/17/2018 | | Results for this | | GASTROINTESTINAL | e | 12:29 PM | | procedure are in the | | ENDOSCOPY | | PDT | | results section. | + +--------+ + + + | LAPAROSCOPIC GASTRIC | Routin | 01/17/2018 | | Results for this | | BYPASS AND | e | 12:29 PM | | procedure are in the | | BARBY-EN-Y | | PDT | | results section. | | GASTROENTEROSTOMY | | | | | | WITH BARBY LIMB 150 | | | | | | CM OR LESS | | | | | + +--------+ + + + | CAPILLARY BLOOD | Routin | 01/17/2018 | Morbid obesity | Results for this | | GLUCOSE (NO CHG), | e | 11:37 AM | with BMI of | procedure are in the | | POC | | PDT | 40.0-44.9, adult | results section. | | | | | (HCC) | | + +--------+ + + + | CAPILLARY BLOOD | Routin | 01/17/2018 | Morbid obesity | Results for this | | GLUCOSE (NO CHG), | e | 9:41 AM | with BMI of | procedure are in the | | POC | | PDT | 40.0-44.9, adult | results section. | | | | | (HCC) | | + +--------+ + + + | LAPAROSCOPIC | Electi | 01/17/2018 | Morbid obesity | | | BARBY-EN-Y GASTRIC | ve | 8:27 AM | (HCC) | | | BYPASS | Surgic | PDT | | | | | al | | | | + +--------+ + + + | CAPILLARY BLOOD | Routin | 01/17/2018 | Morbid obesity | Results for this | | GLUCOSE (NO CHG), | e | 6:37 AM | with BMI of | procedure are in the | | POC | | PDT | 40.0-44.9, adult | results section. | | | | | (HCC) | | + +--------+ + + + | INTRAPROCEDURE | Routin | 01/17/2018 | | Results for this | | IMAGING | e | 5:26 AM | | procedure are in the | | | | PDT | | results section. | + +--------+ + + + | CARDIOLOGY | | 01/17/2018 | | Results for this | | | | 12:00 AM | | procedure are in the | | | | PDT | | results section. | + +--------+ + + + documented in this encounter Results CAPILLARY BLOOD GLUCOSE (NO CHG), POC (01/19/2018 8:38 AM PDT) + +---------+ + + + | Component | Value | Ref Range | Performed | Pathologist | | | | | At | Signature | + +---------+ + + + | BLOOD | 161 (H) | 70 - 99 mg/dL | [facility] | | | GLUCOSE, | | | [facility] | | | POC | | | [facility] | | | | | | OF CARE | | | | | | TESTS | | + +---------+ + + + + + | Specimen | + + | | + + + + + + + | Performing | Address | City/State/Zipcode | Phone Number | | Organization | | | | + + + + + | [facility] | [address] | [place], [place] | | | [facility] | [address] | [address] | | | TESTS | | | | + + + + + X-RAY CHEST 1 VIEW (01/19/2018 1:36 AM PDT) + + | Specimen | + + | | + + + + + | Narrative | Performed At | + + + | EXAM: CHEST 1 VIEW HISTORY: Acute nonspecific chest pain. | [facility] | | COMPARISON: None FINDINGS: Single AP radiograph is limited in | RADIOLOGY VOICE | | diagnostic quality due to body habitus and low lung volumes. The | RECOGNITION | | cardiac silhouette is enlarged. Left retrocardiac atelectasis is | | | noted. No focal consolidation or evidence of pulmonary edema. No | | | pneumothorax. IMPRESSION: Low lung volumes with left | | | retrocardiac atelectasis. I have personally reviewed the images | | | and, if necessary, edited the report. I agree with the report as | | | now presented. | | + + + + + | Procedure Note | + + | Service Account, Radiant Res In Interface - 01/19/2018 9:00 AM PDT EXAM: CHEST 1 | | VIEW HISTORY: Acute nonspecific chest pain.COMPARISON: NoneFINDINGS: Single AP | | radiograph is limited in diagnostic quality due to body habitus and low lung volumes. | | The cardiac silhouette is enlarged. Left retrocardiac atelectasis is noted. No focal | | consolidation or evidence of pulmonary edema. No pneumothorax.IMPRESSION: Low lung | | volumes with left retrocardiac atelectasis.I have personally reviewed the images and, if | | necessary, edited the report. I agree with the report as now presented. | | | |Single AP radiograph is limited in diagnostic quality due to body habitus and low lung volu mes. The cardiac silhouette is enlarged. Left retrocardiac atelectasis is noted. No focal co nsolidation or evidence of pulmonary edema. No pneumothorax. | | | |IMPRESSION: | | | |Low lung volumes with left retrocardiac atelectasis. | | | | | |I have personally reviewed the images and, if necessary, edited the report. I agree with t he report as now presented. | + + + +---------+ + + | Performing | Address | City/State/Zipcode | Phone Number | | Organization | | | | + +---------+ + + | [facility] | | | | | VOICE RECOGNITION | | | | + +---------+ + + CBC (HEMOGRAM) ONLY (01/19/2018 1:23 AM PDT) + + + + + + | Component | Value | Ref Range | Performed | Pathologist | | | | | At | Signature | + + + + + + | WHITE CELL | 9.34 | 3.50 - 10.80 | [facility] | | | COUNT | | K/cu mm | LABORATORY | | | | | | SERVICES, | | | | | | CORE | | + + + + + + | RED CELL | 3.75 (L) | 4.50 - 6.00 | [facility] | | | COUNT | | M/cu mm | LABORATORY | | | | | | SERVICES, | | | | | | CORE | | + + + + + + | HEMOGLOBIN | 11.6 (L) | 13.5 - 17.5 | [facility] | | | | | g/dL | LABORATORY | | | | | | SERVICES, | | | | | | CORE | | + + + + + + | HEMATOCRIT | 34.3 (L) | 41.0 - 53.0 % | [facility] | | | | | | LABORATORY | | | | | | SERVICES, | | | | | | CORE | | + + + + + + | MCV | 91.5 | 80.0 - 96.0 fL | [facility] | | | | | | LABORATORY | | | | | | SERVICES, | | | | | | CORE | | + + + + + + | MCHC | 33.8 | 33.0 - 35.5 | [facility] | | | | | g/dL | LABORATORY | | | | | | SERVICES, | | | | | | CORE | | + + + + + + | RDW SD | 41.6 | 35.1 - 46.3 fL | [facility] | | | | | | LABORATORY | | | | | | SERVICES, | | | | | | CORE | | + + + + + + | PLATELET | 116 (L) | 150 - 400 K/cu | [facility] | | | COUNT | | mm | LABORATORY | | | | | | SERVICES, | | | | | | CORE | | + + + + + + | MPV | 8.8 (L) | 9.7 - 12.3 fL | [facility] | | | | | | LABORATORY | | | | | | SERVICES, | | | | | | CORE | | + + + + + + | NRBC% | 0.0 | 0.0 - 0.3 % | [facility] | | | | | | LABORATORY | | | | | | SERVICES, | | | | | | CORE | | + + + + + + | NRBC# | 0.00 | 0.00 - 0.02 | [facility] | | | | | K/cu mm | LABORATORY | [...] + + | [facility] | [address] | [place] [address] | | | SERVICES, CORE | [address] | | | + + + + + TROPONIN I, PLASMA (01/19/2018 1:23 AM PDT) + +-------+ + + + | Component | Value | Ref Range | Performed | Pathologist | | | | | At | Signature | + +-------+ + + + | TROPONIN I | <0.02 | <0.80 ng/mL | [facility] | | | | | | LABORATORY | | | | | | SERVICES, | | | | | | CORE | | + +-------+ + + + + + | Specimen | + + | Blood - Blood | | (substance) | + + + + + + + | Performing | Address | City/State/Zipcode | Phone Number | | Organization | | | | + + + + + | [facility] | [address] | [place] [address] | | | SERVICES, CORE | [address] | | | + + + + + BASIC METABOLIC SET (NA, K, CL, TCO2, BUN, CR, GLU, CA) (01/19/2018 1:23 AM PDT) + +---------+ + + + | Component | Value | Ref Range | Performed | Pathologist | | | | | At | Signature | + +---------+ + + + | GLUCOSE, | 150 (H) | 70 - 99 mg/dL | [facility] | | | PLASMA | | | LABORATORY | | | (LAB) | | | SERVICES, | | | | | | CORE | | + +---------+ + + + | BUN, PLASMA | 11 | 6 - 20 mg/dL | [facility] | | | (LAB) | | | LABORATORY | | | | | | SERVICES, | | | | | | CORE | | + +---------+ + + + | CREATININE | 0.76 | 0.70 - 1.30 | [facility] | | | PLASMA | | mg/dL | LABORATORY | | | (LAB) | | | SERVICES, | | | | | | CORE | | + +---------+ + + + | EGFR | >60 | >60 mL/min | [facility] | | | - | | | LABORATORY | | | CYMRAES | | | SERVICES, | | | | | | CORE | | + +---------+ + + + | EGFR NON | >60 | >60 mL/min | [facility] | | | -[facility]IA[facility] | | | LABORATORY | | | RICAN | | | SERVICES, | | | | | | CORE | | + +---------+ + + + | SODIUM, | 139 | 136 - 145 | [facility] | | | PLASMA | | mmol/L | LABORATORY | | | (LAB) | | | SERVICES, | | | | | | CORE | | + +---------+ + + + | POTASSIUM, | 3.6 | 3.4 - 5.0 | [facility] | | | PLASMA | | mmol/L | LABORATORY | | | (LAB) | | | SERVICES, | | | | | | CORE | | + +---------+ + + + | CHLORIDE, | 104 | 97 - 108 mmol/L | [facility] | | | PLASMA | | | LABORATORY | | | (LAB) | | | SERVICES, | | | | | | CORE | | + +---------+ + + + | TOTAL CO2, | 27 | 21 - 32 mmol/L | [facility] | | | PLASMA | | | LABORATORY | | | (LAB) | | | SERVICES, | | | | | | CORE | | + +---------+ + + + | CALCIUM, | 8.3 (L) | 8.6 - 10.2 | [facility] | | | PLASMA | | mg/dL | LABORATORY | | | (LAB) | | | SERVICES, | | | | | | CORE | | + +---------+ + + + | ANION GAP | 8 | 4 - 11 mmol/L | [facility] | | | | | | LABORATORY | | | | | | SERVICES, | | | | | | CORE | | + +---------+ + + + | POTASSIUM | No Hemo | | [facility] | | | CMNT | | | LABORATORY | | | | | | SERVICES, | | | | | | CORE | | + +---------+ + + + + + | Specimen | + + | Blood - Blood | | (substance) | + + + + + | Narrative | Performed At | + + + | Adult glucose reference range change effective 7-17. GFR is | [facility] | | estimated using the MDRD equation recommended by the National Kidney | LABORATORY | | Disease Education Program. Estimated GFR Interpretive Information: | [facility] | | <60 mL/min/1.73 sq m Chronic Kidney Disease | | | <15 mL/min/1.73 sq m Kidney Failure Estimated | | | GFR greater that 60 mL/min/1.73 sq m is of limited clinical value. | | | The MDRD equation is not valid in the following situations: - | | | Patients under 18 years of age - Severe malnutrition or obesity - | | | Vegetarian diet - Rapidly changing kidney function | | + + + + + + + + | Performing | Address | City/State/Zipcode | Phone Number | | Organization | | | | + + + + + | [facility] | [address] | [place] [address] | | | [facility] | [address] | | | + + + + + 12 LEAD ECG (01/19/2018 1:19 AM PDT) + + + + + + | Component | Value | Ref Range | Performed | Pathologist | | | | | At | Signature | + + + + + + | VENTRICULAR | 73 | bpm | [facility] | | | RATE | | | OF | | | | | | CARDIOLOGY | | + + + + + + | ATRIAL RATE | 72 | ms | [facility] | | | | | | OF | | | | | | CARDIOLOGY | | + + + + + + | P-R | 187 | ms | [facility] | | | INTERVAL | | | OF | | | | | | CARDIOLOGY | | + + + + + + | P AXIS | 30 | deg | [facility] | | | | | | OF | | | | | | CARDIOLOGY | | + + + + + + | QRS | 121 | ms | [facility] | | | DURATION | | | OF | | | | | | CARDIOLOGY | | + + + + + + | QT | 404 | ms | [facility] | | | | | | OF | | | | | | CARDIOLOGY | | + + + + + + | QTC-CHERRI | 446 | ms | [facility] | | | | | | OF | | | | | | CARDIOLOGY | | + + + + + + | R AXIS | 23 | deg | [facility] | | | | | | OF | | | | | | CARDIOLOGY | | + + + + + + | T AXIS | -16 | deg | [facility] | | | | | | OF | | | | | | CARDIOLOGY | | + + + + + + | ECG | Sinus rhythm | | [facility] | | | IMPRESSION | | | OF | | | | | | CARDIOLOGY | | + + + + + + | ECG | Nonspecific | | [facility] | | | IMPRESSION | intraventricular | | OF | | | | conduction delay | | CARDIOLOGY | | + + + + + + | ECG | Borderline T | | [facility] | | | IMPRESSION | abnormalities, inferior | | OF | | | | leads- ABNORMAL ECG - | | CARDIOLOGY | | + + + + + + | ECG | Electronically signed | | [facility] | | | IMPRESSION | by: THEO MARIE | | OF | | | | 01-19-2018 10:29:44 | | CARDIOLOGY | | + + + + + + + + | Specimen | + + | | + + + + + | Narrative | Performed At | + + + | | | + + + + + + + + | Performing | Address | City/State/Zipcode | Phone Number | | Organization | | | | + + + + + | [facility] | [address] | [place], [place] | | | CARDIOLOGY | [address] | [address] | | + + + + + CAPILLARY BLOOD GLUCOSE (NO CHG), POC (01/18/2018 9:48 PM PDT) + +---------+ + + + | Component | Value | Ref Range | Performed | Pathologist | | | | | At | Signature | + +---------+ + + + | BLOOD | 168 (H) | 70 - 99 mg/dL | [facility] | | | GLUCOSE, | | | [facility] | | | POC | | | [facility] | | | | | | OF CARE | | | | | | TESTS | | + +---------+ + + + + + | Specimen | + + | | + + + + + + + | Performing | Address | City/State/Zipcode | Phone Number | | Organization | | | | + + + + + | [facility] | [address] | [place], [place] | | | [facility] | [address] | [address] | | | TESTS | | | | + + + + + CAPILLARY BLOOD GLUCOSE (NO CHG), POC (01/18/2018 3:29 PM PDT) + +---------+ + + + | Component | Value | Ref Range | Performed | Pathologist | | | | | At | Signature | + +---------+ + + + | BLOOD | 178 (H) | 70 - 99 mg/dL | [facility] | | | GLUCOSE, | | | [facility] | | | POC | | | [facility] | | | | | | OF CARE | | | | | | TESTS | | + +---------+ + + + + + | Specimen | + + | | + + + + + + + | Performing | Address | City/State/Zipcode | Phone Number | | Organization | | | | + + + + + | [facility] | [address] | [place], [place] | | | [facility] | [facility] | [address] | | | TESTS | | | | + + + + + CAPILLARY BLOOD GLUCOSE (NO CHG), POC (01/18/2018 5:44 AM PDT) + +---------+ + + + | Component | Value | Ref Range | Performed | Pathologist | | | | | At | Signature | + +---------+ + + + | BLOOD | 163 (H) | 70 - 99 mg/dL | [facility] | | | GLUCOSE, | | | [facility] | | | POC | | | [facility] | | | | | | OF CARE | | | | | | TESTS | | + +---------+ + + + + + | Specimen | + + | | + + + + + + + | Performing | Address | City/State/Zipcode | Phone Number | | Organization | | | | + + + + + | [facility] | [address] | [place], [place] | | | [facility] | [address] | [address] | | | TESTS | | | | + + + + + CAPILLARY BLOOD GLUCOSE (NO CHG), POC (01/17/2018 11:48 PM PDT) + +---------+ + + + | Component | Value | Ref Range | Performed | Pathologist | | | | | At | Signature | + +---------+ + + + | BLOOD | 175 (H) | 70 - 99 mg/dL | [facility] | | | GLUCOSE, | | | [facility] | | | POC | | | [facility] | | | | | | OF CARE | | | | | | TESTS | | + +---------+ + + + + + | Specimen | + + | | + + + + + + + | Performing | Address | City/State/Zipcode | Phone Number | | Organization | | | | + + + + + | [facility] | [address] | [place], [place] | | | [facility] | [address] | [address] | | | TESTS | | | | + + + + + PROCEDURE NOTE (01/17/2018 6:25 PM PDT) + + + | Narrative | Performed At | + + + | Amara Downing MD 01/17/2018 11:28 AM BRIEF OPERATIVE NOTE | | | Procedure Date: 01/17/2018 Author: AMARA DOWNING MD | | | Attending Physician: Dr. Lerner Assistants: AMARA DOWNING MD R5, | | | Ayleen Roberto MS3 Preoperative Diagnosis: Obesity Postoperative | | | Diagnosis: same Procedure Performed: RYGB, EGD Findings: | | | extensive intrabdominal fat. 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 | [place], [place] | | | [facility] | [address] | [address] | | | TESTS | | | | + + + + + CAPILLARY BLOOD GLUCOSE (NO CHG), POC (01/17/2018 1:47 PM PDT) + +---------+ + + + | Component | Value | Ref Range | Performed | Pathologist | | | | | At | Signature | + +---------+ + + + | BLOOD | 176 (H) | 70 - 99 mg/dL | [facility] | | | GLUCOSE, | | | [facility] | | | POC | | | [facility] | | | | | | OF CARE | | | | | | TESTS | | + +---------+ + + + + + | Specimen | + + | | + + + + + + + | Performing | Address | City/State/Zipcode | Phone Number | | Organization | | | | + + + + + | [facility] | [address] | [place], [place] | | | [facility] | [address] | [address] | | | TESTS | | | | + + + + + CAPILLARY BLOOD GLUCOSE (NO CHG), POC (01/17/2018 12:59 PM PDT) + +---------+ + + + | Component | Value | Ref Range | Performed | Pathologist | | | | | At | Signature | + +---------+ + + + | BLOOD | 176 (H) | 70 - 99 mg/dL | [facility] | | | GLUCOSE, | | | [facility] | | | POC | | | [facility] | | | | | | OF CARE | | | | | | TESTS | | + +---------+ + + + + + | Specimen | + + | | + + + + + + + | Performing | Address | City/State/Zipcode | Phone Number | | Organization | | | | + + + + + | [facility] | [address] | [place], [place] | | | [facility] | [address] | [address] | | | TESTS | | | | + + + + + DIAGNOSTIC UPPER GASTROINTESTINAL ENDOSCOPY (01/17/2018 12:29 PM PDT) + + + | Narrative | Performed At | + + + | Arvin Lerner MD 01/17/2018 12:31 PM Date of Procedure: | | | 01/17/18 Primary Surgeon: Arvin Lerner MD Co Surgeon or | | | store assistant: Amara Downing MD, R6 Preoperative Diagnosis: Morbid | | | Obesity with BMI 41.5. Postoperative Diagnosis: Same as above | | | Procedure list: Laparoscopic Barby-en-Y Gastric Bypass (antecolic) | | | Esophagogastroduodenostopy Indications: Weight-related | | | comorbidities include: DM2 on insulin, JOSE, hypertension, | | | hyperlipidemia Findings: normal anatomy reconfigured to antecolic, | | | antegastric barby-en-Y gastric bypass, 75cm biliopancreatic limb, | | | 120cm barby limb Specimens to the Lab: none Antibiotics: 2gm | | | cefoxitin Blood Loss: 20cc IVF: 3500 cc Procedure | | | Description: The patient was greeted in the preoperative area. | | | Consent was reviewed. The patient walked to the OR suite and | | | laid supine on the operating table. All pressure points were | | | padded. SCDs were in place, turned on, and functioning. A | | | surgical time-out was performed with the operative team. General | | | anesthesia was performed and the patient tolerated this. The | | | abdomen was prepped and draped in the normal standard fashion. The | | | prep was allowed to dry appropriately. A 5mm visiport trocar | | | was used to enter the abdomen via a 5mm left paramedian incision. | | | Insufflation was started without incidence. The abdomen was | | | examined and no injuries to surrounding tissue were identified. | | | The patient tolerated insufflation well. An addition 5mm and | | | 12mm trocar were placed in the left upper quadrant under direct | | | visualization. A 12mm trocar was placed in the right upper | | | quadrant under direct visualization. The abdomen was examined. | | | The transverse colon and omentum were retracted cranially to expose | | | the Ligament of Treitz (LOT). The jejunum was measured 75cm | | | distal to the LOT. The jejunum was divided and the distal staple | | | line was marked with a rj drain. The mesentery was divided | | | with harmonic ultrasonic device. The distal jejunum was measure to | | | 120 cm. A stay-suture was placed at this location to the proximal | | | divided staple line. Enterotomies were created in each limb and a | | | 60mm [employer] [place] [employer] stapler with white load was fired to create a | | | uobb-fi-huze jejunojejunostomy. The anastamosis was confirmed to | | | be widely patent and hemostatic. The common enterotomy was closed | | | by placed 3 stay sutures along the enterotomy for retraction and | | | firing an [employer] 60mm stapler with white load across the | | | enterotomy. Care was taken to avoid narrowing of the | | | jejunojejunostomy. A running permanent v-loc suture was used to close | | | the mesenteric defect at this site. The omentum was divided | | | from the edge to the transverse colon to allow the barby limb to pass | | | antecolic and antegastric without tension. The omentum was | | | reduced to cover the jejunojejunostomy and tucked posterior to the | | | barby limb. A Nathansen liver retractor was placed in the | | | subxiphoid position. The angle of His was identified and blunt | | | dissection was done to divide the phrenoesophageal ligament. The | | | pouch was measure to 4cm distal to the [place]. A window was | | | created in the lesser curve soft tissue at this location. | | | Dissection was performed with a combination of blunt and harmonic | | | instruments in the retrogastric space until the lesser sac was | | | entered. The 60mm [employer] stapler with blue load was placed and | | | fired transversely to start gastric pouch formation. The [place] | | | was then fired longitudinally towards the angle of His. Dissection | | | was performed retrogastric to connect posterior and anterior | | | dissection planes and ensure adequate fundus exclusion. Additional | | | fires of the [place] stapler were performed with blue loads to | | | create the longitudinal wall of the gastric pouch up to the angle of | | | His. After division, omentum was tucked over the gastric remnant | | | staple line after it was ensured to be hemostatic. A 25mm | | | Orvil was passed transorally by anesthesia. The OG tube was seen in | | | the pouch and a gastrotomy was created to grasp the OG tube. The | | | OG tube was grasped and removed through the left upper quadrant site | | | until the anvil was lodged into the gastric pouch securely. The | | | suture was divided and OG tube removed. The jejunal staple line on | | | the barby limb was identified with the rj drain. The jejunal | | | staple line was opened with harmonic scalpel. The left upper | | | quadrant trocar was removed and the incision was extended to 3cm. | | | A wound protector was placed. The EEA stapler was passed into | | | the abdomen and placed into the opened jejunal enterotomy. The | | | spike was advanced and attached to the anvil. The stapler was | | | closed and fired. The EEA stapler was removed. The jejunal | | | enterotomy was closed with 60mm [place] stapler with a white load. | | | Two tension-relieving interrupted sutures were place, one medially | | | from pouch to barby limb and one laterally, of 2-0 vicryl suture. | | | All staple lines with examined for hemostasis and staple | | | integrity. The rj drain and small amount of jejunal tissue | | | were removed via the wound protector. The wound protector was | | | removed and the fascia was closed with 2 interrupted 0 Vicryl | | | sutures using a transfascial suture passer. The wound was | | | irrigated copiously prior to tying down the sutures. This site was | | | infiltrated with 20cc of local anesthetic. A bowel clamp was | | | placed on the barby limb. An endoscopy was performed with | | | visualization of the gastric pouch, gastrojejunostomy, and jejunal | | | mucosa. All were healthy, hemostatic, and staple lines were intact | | | and strong with insufflation. The entire area was submerged under | | | saline and no bubbling or leakage was seen. Irrigation was | | | removed. Omentum was placed circumferentially around the | | | gastrojejunostomy. The clamp and liver retractor were removed. | | | All trocar sites were examined and appeared hemostatic. Trocars | | | were removed. Skin was irrigated and closed with 4-0 monocryl and | | | dermabond. The patient was extubated and transferred to the | | | recovery room in stable condition. I was present for the | | | entirety of this procedure. Certification of Unavailability of | | | Qualified Resident I understand that section 1842(b)(7)(D) of the | | | Social Security Act generally prohibits Medicare physician fee | | | schedule payment for the services of assistants at surgery in | | | surgical specialty [facility] when qualified residents are available to furnish | | | such services. I certify that I assisted in this medically | | | necessary case and that no qualified resident was available to | | | furnish such services. I further understand that these services are | | | subject to post-payment review by the Medicare carrier. | | | Arvin Lerner MD, FACS, [facility] Bariatric Surgery | | + + + LAPAROSCOPIC GASTRIC BYPASS AND BARBY-EN-Y GASTROENTEROSTOMY WITH BARBY LIMB 150 CM OR LESS ( 01/17/2018 12:29 PM PDT) + + + | Narrative | Performed At | + + + | Arvin Lerner MD 01/17/2018 12:31 PM Date of Procedure: | | | 01/17/18 Primary Surgeon: Arvin Lerner MD Co Surgeon or | | | store assistant: Amara Downing MD, R6 Preoperative Diagnosis: Morbid | | | Obesity with BMI 41.5. Postoperative Diagnosis: Same as above | | | Procedure list: Laparoscopic Barby-en-Y Gastric Bypass (antecolic) | | | Esophagogastroduodenostopy Indications: Weight-related | | | comorbidities include: DM2 on insulin, JOSE, hypertension, | | | hyperlipidemia Findings: normal anatomy reconfigured to antecolic, | | | antegastric barby-en-Y gastric bypass, 75cm biliopancreatic limb, | | | 120cm barby limb Specimens to the Lab: none Antibiotics: 2gm | | | cefoxitin Blood Loss: 20cc IVF: 3500 cc Procedure | | | Description: The patient was greeted in the preoperative area. | | | Consent was reviewed. The patient walked to the OR suite and | | | laid supine on the operating table. All pressure points were | | | padded. SCDs were in place, turned on, and functioning. A | | | surgical time-out was performed with the operative team. General | | | anesthesia was performed and the patient tolerated this. The | | | abdomen was prepped and draped in the normal standard fashion. The | | | prep was allowed to dry appropriately. A 5mm visiport trocar | | | was used to enter the abdomen via a 5mm left paramedian incision. | | | Insufflation was started without incidence. The abdomen was | | | examined and no injuries to surrounding tissue were identified. | | | The patient tolerated insufflation well. An addition 5mm and | | | 12mm trocar were placed in the left upper quadrant under direct | | | visualization. A 12mm trocar was placed in the right upper | | | quadrant under direct visualization. The abdomen was examined. | | | The transverse colon and omentum were retracted cranially to expose | | | the Ligament of Treitz (LOT). The jejunum was measured 75cm | | | distal to the LOT. The jejunum was divided and the distal staple | | | line was marked with a rj drain. The mesentery was divided | | | with harmonic ultrasonic device. The distal jejunum was measure to | | | 120 cm. A stay-suture was placed at this location to the proximal | | | divided staple line. Enterotomies were created in each limb and a | | | 60mm [place] stapler with white load was fired to create a | | | [id number] jejunojejunostomy. The anastamosis was confirmed to | | | be widely patent and hemostatic. The common enterotomy was closed | | | by placed 3 stay sutures along the enterotomy for retraction and | | | firing an [place] 60mm stapler with white load across the | | | enterotomy. Care was taken to avoid narrowing of the | | | jejunojejunostomy. A running permanent v-loc suture was used to close | | | the mesenteric defect at this site. The omentum was divided | | | from the edge to the transverse colon to allow the barby limb to pass | | | antecolic and antegastric without tension. The omentum was | | | reduced to cover the jejunojejunostomy and tucked posterior to the | | | barby limb. A Nathansen liver retractor was placed in the | | | subxiphoid position. The angle of His was identified and blunt | | | dissection was done to divide the phrenoesophageal ligament. The | | | pouch was measure to 4cm distal to the [place]. A window was | | | created in the lesser curve soft tissue at this location. | | | Dissection was performed with a combination of blunt and harmonic | | | instruments in the retrogastric space until the lesser sac was | | | entered. The 60mm [place] stapler with blue load was placed and | | | fired transversely to start gastric pouch formation. The [place] | | | was then fired longitudinally towards the angle of His. Dissection | | | was performed retrogastric to connect posterior and anterior | | | dissection planes and ensure adequate fundus exclusion. Additional | | | fires of the [place] stapler were performed with blue loads to | | | create the longitudinal wall of the gastric pouch up to the angle of | | | His. After division, omentum was tucked over the gastric remnant | | | staple line after it was ensured to be hemostatic. A 25mm | | | Orvil was passed transorally by anesthesia. The OG tube was seen in | | | the pouch and a gastrotomy was created to grasp the OG tube. The | | | OG tube was grasped and removed through the left upper quadrant site | | | until the anvil was lodged into the gastric pouch securely. The | | | suture was divided and OG tube removed. The jejunal staple line on | | | the barby limb was identified with the rj drain. The jejunal | | | staple line was opened with harmonic scalpel. The left upper | | | quadrant trocar was removed and the incision was extended to 3cm. | | | A wound protector was placed. The EEA stapler was passed into | | | the abdomen and placed into the opened jejunal enterotomy. The | | | spike was advanced and attached to the anvil. The stapler was | | | closed and fired. The EEA stapler was removed. The jejunal | | | enterotomy was closed with 60mm [place] stapler with a white load. | | | Two tension-relieving interrupted sutures were place, one medially | | | from pouch to barby limb and one laterally, of 2-0 vicryl suture. | | | All staple lines with examined for hemostasis and staple | | | integrity. The rj drain and small amount of jejunal tissue | | | were removed via the wound protector. The wound protector was | | | removed and the fascia was closed with 2 interrupted 0 Vicryl | | | sutures using a transfascial suture passer. The wound was | | | irrigated copiously prior to tying down the sutures. This site was | | | infiltrated with 20cc of local anesthetic. A bowel clamp was | | | placed on the barby limb. An endoscopy was performed with | | | visualization of the gastric pouch, gastrojejunostomy, and jejunal | | | mucosa. All were healthy, hemostatic, and staple lines were intact | | | and strong with insufflation. The entire area was submerged under | | | saline and no bubbling or leakage was seen. Irrigation was | | | removed. Omentum was placed circumferentially around the | | | gastrojejunostomy. The clamp and liver retractor were removed. | | | All trocar sites were examined and appeared hemostatic. Trocars | | | were removed. Skin was irrigated and closed with 4-0 monocryl and | | | dermabond. The patient was extubated and transferred to the | | | recovery room in stable condition. I was present for the | | | entirety of this procedure. Certification of Unavailability of | | | Qualified Resident I understand that section 1842(b)(7)(D) of the | | | Social Security Act generally prohibits Medicare physician fee | | | schedule payment for the services of assistants at surgery in | | | teaching hospitals when qualified residents are available to furnish | | | such services. I certify that I assisted in this medically | | | necessary case and that no qualified resident was available to | | | furnish such services. I further understand that these services are | | | subject to post-payment review by the Medicare carrier. | | | Arvin Lerner MD, FACS, [facility] Bariatric Surgery | | + + + CAPILLARY BLOOD GLUCOSE (NO CHG), POC (01/17/2018 11:37 AM PDT) + +---------+ + + + | Component | Value | Ref Range | Performed | Pathologist | | | | | At | Signature | + +---------+ + + + | BLOOD | 191 (H) | 70 - 99 mg/dL | [facility] | | | GLUCOSE, | | | [facility] | | | POC | | | [facility] | | | | | | OF CARE | | | | | | TESTS | | + +---------+ + + + + + | Specimen | + + | | + + + + + + + | Performing | Address | City/State/Zipcode | Phone Number | | Organization | | | | + + + + + | [facility] | [address] | [place], [place] | | | [facility] | [address] | [address] | | | TESTS | | | | + + + + + CAPILLARY BLOOD GLUCOSE (NO CHG), POC (01/17/2018 9:41 AM PDT) + +---------+ + + + | Component | Value | Ref Range | Performed | Pathologist | | | | | At | Signature | + +---------+ + + + | BLOOD | 175 (H) | 70 - 99 mg/dL | [facility] - | | | GLUCOSE, | | | [facility] | | | POC | | | [facility] | | | | | | OF CARE | | | | | | TESTS | | + +---------+ + + + + + | Specimen | + + | | + + + + + + + | Performing | Address | City/State/Zipcode | Phone Number | | Organization | | | | + + + + + | [facility] | [address] | [place], [place] | | | [facility] | [facility] | [address] | | | TESTS | | | | + + + + + CAPILLARY BLOOD GLUCOSE (NO CHG), POC (01/17/2018 6:37 AM PDT) + +---------+ + + + | Component | Value | Ref Range | Performed | Pathologist | | | | | At | Signature | + +---------+ + + + | BLOOD | 126 (H) | 70 - 99 mg/dL | [facility] | | | GLUCOSE, | | | [facility] | | | POC | | | [facility] | | | | | | OF CARE | | | | | | TESTS | | + +---------+ + + + + + | Specimen | + + | | + + + + + + + | Performing | Address | City/State/Zipcode | Phone Number | | Organization | | | | + + + + + | [facility] | [address] | [place], [place] | | | [facility] | [address] | [phone] | | | TESTS | | | | + + + + + INTRAPROCEDURE IMAGING (01/17/2018 5:26 AM PDT) + + | Specimen | + + | | + + + + + | Narrative | Performed At | + + + | See admission or procedure notes for details of any intraprocedure | | | images obtained. | | + + + CARDIOLOGY (01/17/2018 12:00 AM PDT) + + + | Narrative | Performed At | + + + | | | + + + documented in this encounter Visit Diagnoses + + | Diagnosis | + + | Morbid obesity with BMI of 40.0-44.9, adult (HCC) - Primary | + + | Insulin dependent diabetes mellitus ([facility]) Type II or unspecified type diabetes | | mellitus without mention of complication, not stated as uncontrolled | + + | Essential hypertension | + + | Hyperlipidemia Other and unspecified hyperlipidemia | + + | JOSE on CPAP Obstructive sleep apnea (adult) (pediatric) | + + | Acute post-operative pain | + + documented in this encounter Administered Medications + +--------+ +--------+------+------+ | Medication Order | MAR | Action | Dose | Rate | Site | | | Action | Date | | | | + +--------+ +--------+------+------+ | acetaminophen (TYLENOL) tablet | Given | 01/19/20 | 650 mg | | | | 650 mg 650 mg, oral, EVERY 8 | | 18 4:29 | | | | | HOURS, 3 doses, First dose on Mon | | AM PDT | | | | | 01/17/18 at 1200, Last dose on | | | | | | | 01/18/18 at 0400 | | | | | | + +--------+ +--------+------+------+ +-------+ +--------+---+---+ | Given | 01/18/20 | 650 mg | | | | | 18 9:16 | | | | | | PM PDT | | | | +-------+ +--------+---+---+ +---+---+ | | | +---+---+ + +-------+ +--------+---+---+ | acetaminophen (TYLENOL) tablet | Given | 01/19/20 | 650 mg | | | | 650 mg 650 mg, oral, EVERY 6 | | 18 8:59 | | | | | HOURS NEEDED, Starting Tue | | PM PDT | | | | | 01/18/18 at 1200, Until Wed | | | | | | | 01/19/18 at 1826, mild pain, | | | | | | | fever, multimodal pain control | | | | | | + +-------+ +--------+---+---+ +-------+ +--------+---+---+ | Given | 01/19/20 | 650 mg | | | | | 18 3:26 | | | | | | PM PDT | | | | +-------+ +--------+---+---+ +---+---+ | | | +---+---+ + +-------+ +--------+---+---+ | buPROPion (WELLBUTRIN) tablet | Given | 01/20/20 | 150 mg | | | | 150 mg 150 mg, oral, TWICE | | 18 8:54 | | | | | DAILY, First dose on Wed01/17/18 | | AM PDT | | | | | at 2100, Until Discontinued | | | | | | + +-------+ +--------+---+---+ +-------+ +--------+---+---+ | Given | 01/19/20 | 150 mg | | | | | 18 9:42 | | | | | | PM PDT | | | | +-------+ +--------+---+---+ | Given | 01/19/20 | 150 mg | | | | | 18 9:29 | | | | | | AM PDT | | | | +-------+ +--------+---+---+ +---+---+ | | | +---+---+ + +-------+ +--------+---+---------+ | cyanocobalamin (VITAMIN B-12) | Given | 01/19/20 | 1,000 | | Abdomen | | injection 1,000 mcg 1,000 mcg, | | 18 9:29 | mcg | | | | subcutaneous, DAILY, 1 dose, | | AM PDT | | | | | First dose on Wed01/18/18 at 0900 | | | | | | + +-------+ +--------+---+---------+ +---+---+ | | | +---+---+ + +-------+ +-------+---+---+ | DULoxetine (CYMBALTA) capsule | Given | 01/20/20 | 60 mg | | | | 60 mg 60 mg, oral, DAILY, First | | 18 8:54 | | | | | dose on Wed01/18/18 at 0900, | | AM PDT | | | | | Until Discontinued | | | | | | + +-------+ +-------+---+---+ +-------+ +-------+---+---+ | Given | 01/19/20 | 60 mg | | | | | 18 9:28 | | | | | | AM PDT | | | | +-------+ +-------+---+---+ +---+---+ | | | +---+---+ + +-------+ +-------+---+---------+ | enoxaparin (LOVENOX) injection | Given | 01/18/20 | 40 mg | | Abdomen | | 40 mg 40 mg, subcutaneous, | | 18 6:16 | | | | | PREPROCEDURE ONCE, 1 dose, | | AM PDT | | | | | Starting Wed01/17/18 at 0526, | | | | | | | Until Wed01/17/18 at 0616 | | | | | | + +-------+ +-------+---+---------+ +---+---+ | | | +---+---+ + +-------+ +-------+---+---------+ | enoxaparin (LOVENOX) injection | Given | 01/20/20 | 40 mg | | Abdomen | | 40 mg 40 mg, subcutaneous, TWICE | | 18 8:54 | | | | | DAILY, First dose (after last | | AM PDT | | | | | modification) on Wed01/17/18 at | | | | | | | 2100, Until Discontinued | | | | | | + +-------+ +-------+---+---------+ +-------+ +-------+---+---------+ | Given | 01/19/20 | 40 mg | | Abdomen | | | 18 10:47 | | | | | | PM PDT | | | | +-------+ +-------+---+---------+ | Given | 01/19/20 | 40 mg | | Abdomen | | | 18 9:29 | | | | | | AM PDT | | | | +-------+ +-------+---+---------+ +---+---+ | | | +---+---+ + +-------+ +--------+---+---+ | HYDROmorphone (DILAUDID) | Given | 01/18/20 | 0.3 mg | | | | injection 0.2-0.4 mg 0.2-0.4 mg, | | 18 12:26 | | | | | intravenous, POSTPROCEDURE PRN, | | PM PDT | | | | | Starting Wed01/17/18 at 1151, | | | | | | | Until Wed01/17/18 at 1338, | | | | | | | moderate pain while in Phase I | | | | | | | Recovery | | | | | | + +-------+ +--------+---+---+ +-------+ +--------+---+---+ | Given | 01/18/20 | 0.3 mg | | | | | 18 11:54 | | | | | | AM PDT | | | | +-------+ +--------+---+---+ | Given | 01/18/20 | 0.2 mg | | | | | 18 11:42 | | | | | | AM PDT | | | | +-------+ +--------+---+---+ +---+---+ | | | +---+---+ + +-------+ +--------+---+---+ | HYDROmorphone (DILAUDID) | Given | 01/20/20 | 0.5 mg | | | | injection 0.5-1 mg 0.5-1 mg, | | 18 1:36 | | | | | intravenous, EVERY 1 HOUR | | AM PDT | | | | | NEEDED, Starting 01/17/18 at | | | | | | | 1339, Until 01/19/18 at 0628, | | | | | | | severe pain | | | | | | + +-------+ +--------+---+---+ + +---+ | | | + +---+ | HYDROmorphone (DILAUDID) | | | injection 1 dose, Starting Mon | | | 01/17/18 at 1139, Until Mon | | | 01/17/18 at 1142 | | + +---+ | | | + +---+ + +-------+ +---------+---+--------+ | insulin lispro (HUMALOG) | Given | 01/20/20 | 2 Units | | Right | | injection subcutaneous, FOUR | | 18 8:55 | | | Arm | | TIMES DAILY, First dose on Mon | | AM PDT | | | | | 01/17/18 at 1345, Until | | | | | | | Discontinued | | | | | | + +-------+ +---------+---+--------+ +-------+ +---------+---+ + | Given | 01/19/20 | 1 Units | | Left Arm | | | 18 9:54 | | | | | | PM PDT | | | | +-------+ +---------+---+ + | Given | 01/19/20 | 2 Units | | Abdomen | | | 18 3:43 | | | | | | PM PDT | | | | +-------+ +---------+---+ + +---+---+ | | | +---+---+ + +---------+ + +-------+---+ | insulin regular in NaCl 0.9% IV | New Bag | 01/18/20 | 7.5 | 7.5 | | | infusion (1 unit/mL) 0.25-50 | | 18 1:00 | Units/hr | mL/hr | | | Units/hr (0.25-50 mL/hr), | | PM PDT | | | | | intravenous, CONTINUOUS, Starting | | | | | | | 01/17/18 at 1015, Until Mon | | | | | | | 01/17/18 at 1339 | | | | | | + +---------+ + +-------+---+ +---------+ + +-------+---+ | New Bag | 01/18/20 | 9.5 | 9.5 | | | | 18 11:56 | Units/hr | mL/hr | | | | AM PDT | | | | +---------+ + +-------+---+ +---+---+ | | | +---+---+ + +---------+ + +---+---+ | lactated Ringers IV 1,000 mL, | New Bag | 01/18/20 | 1,000 mL | | | | intravenous, PREPROCEDURE ONCE, | | 18 6:18 | | | | | dose, Starting 01/17/18 at | | AM PDT | | | | | 0526, Until Wed01/17/18 at 0618 | | | | | | + +---------+ + +---+---+ +---+---+ | | | +---+---+ + +---------+ +-------+-------+---+ | lactated Ringers IV 150 mL/hr, | New Bag | 01/20/20 | 150 | 150 | | | intravenous, CONTINUOUS, | | 18 5:11 | mL/hr | mL/hr | | | Starting 01/17/18 at 1200, | | AM PDT | | | | | Until 01/19/18 at 0627 | | | | | | + +---------+ +-------+-------+---+ +---------+ +-------+-------+---+ | New Bag | 01/19/20 | 150 | 150 | | | | 18 10:46 | mL/hr | mL/hr | | | | PM PDT | | | | +---------+ +-------+-------+---+ | New Bag | 01/19/20 | 150 | 150 | | | | 18 9:28 | mL/hr | mL/hr | | | | AM PDT | | | | +---------+ +-------+-------+---+ +---+---+ | | | +---+---+ + +-------+ +---------+---+---+ | levothyroxine tablet 200 mcg | Given | 01/20/20 | 200 mcg | | | | 200 mcg, oral, DAILY, First dose | | 18 7:10 | | | | | on 01/18/18 at 0900, Until | | AM PDT | | | | | Discontinued | | | | | | + +-------+ +---------+---+---+ +-------+ +---------+---+---+ | Given | 01/19/20 | 200 mcg | | | | | 18 9:29 | | | | | | AM PDT | | | | +-------+ +---------+---+---+ +---+---+ | | | +---+---+ + +-------+ +--------+---+---+ | metoprolol tartrate (LOPRESSOR) | Given | 01/20/20 | 100 mg | | | | tablet 100 mg 100 mg, oral, | | 18 8:54 | | | | | TWICE DAILY, First dose on Mon | | AM PDT | | | | | 01/17/18 at 2100, Until | | | | | | | Discontinued | | | | | | + +-------+ +--------+---+---+ +-------+ +--------+---+---+ | Given | 01/19/20 | 100 mg | | | | | 18 10:47 | | | | | | PM PDT | | | | +-------+ +--------+---+---+ | Given | 01/18/20 | 100 mg | | | | | 18 9:16 | | | | | | PM PDT | | | | +-------+ +--------+---+---+ +---+---+ | | | +---+---+ + +-------+ +-------+---+---+ | omeprazole (PRILOSEC) capsule | Given | 01/20/20 | 20 mg | | | | 20 mg 20 mg, oral, DAILY, First | | 18 8:54 | | | | | dose on 01/17/18 at 1345, | | AM PDT | | | | | Until Discontinued | | | | | | + +-------+ +-------+---+---+ +-------+ +-------+---+---+ | Given | 01/19/20 | 20 mg | | | | | 18 9:29 | | | | | | AM PDT | | | | +-------+ +-------+---+---+ | Given | 01/18/20 | 20 mg | | | | | 18 4:15 | | | | | | PM PDT | | | | +-------+ +-------+---+---+ +---+---+ | | | +---+---+ + +-------+ +------+---+---+ | ondansetron (ZOFRAN) injection | Given | 01/19/20 | 4 mg | | | | 4 mg 4 mg, intravenous, EVERY 12 | | 18 9:28 | | | | | HOURS, 4 doses, First dose on | | AM PDT | | | | | 01/17/18 at 2300, Last dose on | | | | | | | 01/19/18 at 1100 | | | | | | + +-------+ +------+---+---+ +-------+ +------+---+---+ | Given | 01/18/20 | 4 mg | | | | | 18 9:19 | | | | | | PM PDT | | | | +-------+ +------+---+---+ +---+---+ | | | +---+---+ + +-------+ +-------+---+---+ | oxyCODONE (immediate release) | Given | 01/20/20 | 10 mg | | | | (ROXICODONE) liquid 5-15 mg 5-15 | | 18 11:59 | | | | | mg, oral, EVERY 3 HOURS | | AM PDT | | | | | NEEDED, Starting Wed01/17/18 at | | | | | | | 1152, Until Wed01/19/18 at 1826, | | | | | | | moderate pain | | | | | | + +-------+ +-------+---+---+ +-------+ +------+---+---+ | Given | 01/20/20 | 5 mg | | | | | 18 5:10 | | | | | | AM PDT | | | | +-------+ +------+---+---+ | Given | 01/20/20 | 5 mg | | | | | 18 1:02 | | | | | | AM PDT | | | | +-------+ +------+---+---+ +---+---+ | | | +---+---+ + +-------+ +--------+---+---+ | potassium chloride (KAOCHLOR) | Given | 01/20/20 | 40 mEq | | | | liquid 10% 40 mEq 40 mEq, oral, | | 18 10:06 | | | | | ONCE, 1 dose, 01/19/18 at 0430 | | AM PDT | | | | + +-------+ +--------+---+---+ +---+---+ | | | +---+---+ + + + +---+---+---+ | probiotic yogurt (PINKY'S | Given - | 01/20/20 | | | | | YOGURT) oral, TWICE DAILY, First | Food | 18 8:59 | | | | | dose on Wed01/18/18 at 0900, | | AM PDT | | | | | Until Discontinued | | | | | | + + + +---+---+---+ + +---+ | | | + +---+ | prochlorperazine (COMPAZINE) | | | injection 5 mg 5 mg, | | | intravenous, EVERY 6 HOURS | | | NEEDED, Starting 01/17/18 at | | | 1631, Until 01/19/18 at 1826, | | | nausea/vomiting, second line | | + +---+ | | | + +---+ + +-------+ +-------+---+---+ | pseudoephedrine (SUDAFED) | Given | 01/19/20 | 30 mg | | | | tablet 30 mg 30 mg, oral, ONCE, | | 18 10:47 | | | | | 1 dose, 01/18/18 at 2300 | | PM PDT | | | | + +-------+ +-------+---+---+ +---+---+ | | | +---+---+ + +-------+ +-------+---+---+ | simethicone chew (MYLICON) | Given | 01/19/20 | 80 mg | | | | tablet 80 mg 80 mg, oral, THREE | | 18 9:03 | | | | | TIMES DAILY NEEDED, Starting | | PM PDT | | | | | 01/17/18 at 1339, Until Wed | | | | | | | 01/19/18 at 1826, bloating | | | | | | + +-------+ +-------+---+---+ +-------+ +-------+---+---+ | Given | 01/19/20 | 80 mg | | | | | 18 9:28 | | | | | | AM PDT | | | | +-------+ +-------+---+---+ | Given | 01/18/20 | 80 mg | | | | | 18 10:03 | | | | | | PM PDT | | | | +-------+ +-------+---+---+ +---+---+ | | | +---+---+ + +-------+ +--------+---+---+ | tamsulosin (FLOMAX) capsule 0.4 | Given | 01/20/20 | 0.4 mg | | | | mg 0.4 mg, oral, DAILY, First | | 18 8:54 | | | | | dose on Wed01/17/18 at 2045, | | AM PDT | | | | | Until Discontinued | | | | | | + +-------+ +--------+---+---+ +-------+ +--------+---+---+ | Given | 01/19/20 | 0.4 mg | | | | | 18 9:28 | | | | | | AM PDT | | | | +-------+ +--------+---+---+ | Given | 01/18/20 | 0.4 mg | | | | | 18 9:36 | | | | | | PM PDT | | | | +-------+ +--------+---+---+ +---+---+ | | | +---+---+ + +-------+ +--------+---+---+ | thiamine (VITAMIN B-1) | Given | 01/19/20 | 100 mg | | | | injection 100 mg 100 mg, | | 18 9:29 | | | | | intravenous, DAILY, 1 dose, First | | AM PDT | | | | | dose on Wed01/18/18 at 0900 | | | | | | + +-------+ +--------+---+---+ +---+---+ | | | +---+---+ documented in this encounter
--- OUTSIDE RECORDS SUMMARY | ~2019-10-18 | XMS | Encounter Summary ---
Demographics + + + | Address | [address] [facility] | | | [place] [address] | + + + | Home Phone | | + + + | Preferred Language | Unknown | + + + | Marital Status | | + + + | Mandaeism Affiliation | NRP | + + + | Race | White | + + + | Ethnic Group | Not or | + + + Author + + + | Author | [facility] | + + + | Organization | [facility] | + + + | Address | Unknown | + + + | Phone | Unavailable | + + + Support + + + + + | Name | Relationship | Address | Phone | + + + + + | Pooja Valdez | ECON | [address] | | | | | [place] | | | | | [address] | | + + + + + Care Team Providers + +------+ + | Care Roof Truss Machine Tender Name | Role | Phone | + +------+ + | No Pcp Per Patient | PCP | Unavailable | + +------+ + Reason for Visit + + + | Reason | Comments | + + + | Medication side | patient was in a couple of weeks ago and was given rx for | | effects present | Flonase; pt states that he's had epistaxis since starting the | | | Flonase. Pt also states that the bleeding is quite heavy. Pt | | | denies any nasal bleeding problems prior to starting Flonase. | + + + Encounter Details +--------+ + + + + | Date | Type | Department | Care Team | Description | +--------+ + + + + | 06/29/ | Telephone | Otolaryngology | Santos Kwan, | Medication side | | 2005 | | [facility] [address] | [address] | effects present | | | | [address] | [facility] [place] | (patient was in a | | | | Mailcode: OP01 | [address] | couple of weeks ago | | | | [facility] | [phone] | and was given rx for | | | | [facility] [place] | | Flonase; pt states | | | | [address] | | that he's had | | | | [phone] | | epistaxis since | | | | | | starting the | | | | | | Flonase. Pt also | | | | | | states that the | | | | | | bleeding is quite | | | | | | heavy. Pt denies | | | | | | any nasal bleeding | | | | | | problems prior to | | | | | | starting Flonase.) | +--------+ + + + + Social [...] 12/15/ | Office | Pre-operative | 2, [address] | | | 2020 | Visit | Medicine | [address] | | | | | | [place] [address] | | +--------+ + + + + [...] Rd | | | | | | [place], [place] | | | | | | [address] | | | | | | [phone] | | | | | | | | +--------+ + + + + documented as of this encounter Visit Diagnoses Not on filedocumented in this encounter"
--- OUTSIDE RECORDS SUMMARY | ~2019-10-18 | XMS | Encounter Summary ---
Demographics + + + | Address | [address] [address] [facility] | | | [place] [address] | + + + | Home Phone | | + + + | Preferred Language | Unknown | + + + | Marital Status | | + + + | Muslim Affiliation | NRP | + + + | Race | White | + + + | Ethnic Group | Not or | + + + Author + + + | Author | [facility] | + + + | Organization | [facility] | + + + | Address | Unknown | + + + | Phone | Unavailable | + + + Support + + + + + | Name | Relationship | Address | Phone | + + + + + | Pooja Valdez | ECON | [address] | | | | | [place] | | | | | [address] | | + + + + + Care Team Providers + +------+ + | Care Elevated Guard Name | Role | Phone | + +------+ + | Rian Sanchez MD | PCP | | + +------+ + Encounter Details +--------+ + + + + | Date | Type | Department | Care Team | Description | +--------+ + + + + | 11/15/ | Abstract | Cardiology | Poly Joseph | | | 2017 | | Preventive at [facility] | CHADWICK Amaro [address] | | | | | [address] | [place], | | | | | Mailcode: AARON9A | [place] [address] | | | | | [facility] | [phone] | | | | | and Healing, | | | | | | [address] | | | | | | [place], [place] | | | | | | [address] | | | | | | [phone] | | | +--------+ + + + [...] Office | Pre-operative | 2, [address] | | | 2019 | Visit | Medicine | [address] | | | | | | [place] [address] | | +--------+ + + + + [...] [place] | | | | | | [address] | | | | | | [phone] | | | | | | | | +--------+ + + + + documented as of this encounter Visit Diagnoses Not on filedocumented in this encounter"
--- OUTSIDE RECORDS SUMMARY | ~2019-10-18 | XMS | Encounter Summary ---
Demographics + + + | Address | [address] [address] [facility] | | | [place] [address] | + + + | Home Phone | | + + + | Preferred Language | Unknown | + + + | Marital Status | | + + + | Moravian Affiliation | NRP | + + + | Race | White | + + + | Ethnic Group | Not or | + + + Author + + + | Author | [facility] | + + + | Organization | [facility] | + + + | Address | Unknown | + + + | Phone | Unavailable | + + + Support + + + + + | Name | Relationship | Address | Phone | + + + + + | Pooja Valdez | ECON | [address] | | | | | [place] | | | | | [address] | | + + + + + Care Team Providers + +------+ + | Care Tab Builder Name | Role | Phone | + +------+ + | Hemalatha Lawrence PA-C | PCP | | + +------+ + Encounter Details +--------+ + + + + | Date | Type | Department | Care Team | Description | +--------+ + + + + | 01/06/ | MyChart | Digestive Health | | Olivier Zafar for | | 2017 | Encounter | [facility] [address] | | preop class | | | | [address] | | | | | | Mailcode: Center | | | | | | for Health and | | | | | | Healing, [address] | | | | | | [place], [place] | | | | | | [address] | | | | | | [phone] | | | +--------+ + + + [...] 12/15/ | Office | Pre-operative | 2, [facility] [address] | | | 2019 | Visit | Medicine | [address] | | | | | | [place] [address] | | +--------+ + + + + [...] Rd | | | | | | [place], [place] | | | | | | [address] | | | | | | [phone] | | | | | | | | +--------+ + + + + documented as of this encounter Visit Diagnoses Not on filedocumented in this encounter"
--- OUTSIDE RECORDS SUMMARY | ~2019-10-18 | XMS | Encounter Summary ---
Demographics + + + | Address | [address] [facility] | | | [place] [address] | + + + | Home Phone | | + + + | Preferred Language | Unknown | + + + | Marital Status | | + + + | Yarsanism Affiliation | NRP | + + + | Race | White | + + + | Ethnic Group | Not or | + + + Author + + + | Author | [facility] | + + + | Organization | [facility] | + + + | Address | Unknown | + + + | Phone | Unavailable | + + + Support + + + + + | Name | Relationship | Address | Phone | + + + + + | Pooja Valdez | ECON | [address] | | | | | [place] | | | | | [address] | | + + + + + Care Team Providers + +------+ + | Care Bellhop Captain Name | Role | Phone | + +------+ + | Hemalatha Lawrence PA-C | PCP | | + +------+ + Encounter Details +--------+ + + + + | Date | Type | Department | Care Team | Description | +--------+ + + + + | 10/14/ | MyChart | Cardiology General | | Stress Test order | | 2017 | Encounter | at [facility] [address] | | | | | | [address] [place] Mailcode: | | | | | | [address] | | | | | | Health and Healing, | | | | | | | | | | | | Floor [place], [place] | | | | | | [address] | | | | | | [phone] | | | +--------+ + + + [...] | Office | Pre-operative | 2, [facility] [address] | | | 2019 | Visit | Medicine | [address] | | | | | | [place] [address] | | +--------+ + + + + [...] Rd | | | | | | [place] | | | | | | [address] | | | | | | [phone] | | | | | | | | +--------+ + + + + documented as of this encounter Visit Diagnoses Not on filedocumented in this encounter"
--- OUTSIDE RECORDS SUMMARY | ~2019-10-18 | XMS | Encounter Summary ---
Demographics + + + | Address | [address] | | | [place] [address] | + + + | Home Phone | | + + + | Preferred Language | Unknown | + + + | Marital Status | | + + + | Episcopalian Affiliation | NRP | + + + | Race | White | + + + | Ethnic Group | Not or | + + + Author + + + | Author | [facility] | + + + | Organization | [facility] | + + + | Address | Unknown | + + + | Phone | Unavailable | + + + Support + + + + + | Name | Relationship | Address | Phone | + + + + + | Pooja Valdez | ECON | [address] | | | | | [place] | | | | | [address] | | + + + + + Care Team Providers + +------+ + | Care Logistics Planner Name | Role | Phone | + +------+ + | Hemalatha Lawrence PA-C | PCP | | + +------+ + Encounter Details +--------+ + + + + | Date | Type | Department | Care Team | Description | +--------+ + + + + | 11/23/ | Abstract | Digestive Health | Clinic, Surgery | | | 2018 | | [place] [facility] [address] | | | | | | [address] | | | | | | Mailcode: Center | | | | | | for Health and | | | | | | Healing, [address] | | | | | | [place], [place] | | | | | | [address] | | | | | | [phone] | | | +--------+ + + + [...] 12/15/ | Office | Pre-operative | 2, [facility] [address] | | 2019 | Visit | Medicine | [address] | | | | | | [place] [address] | | +--------+ + + + + [...] Rd | | | | | | [facility] [place] | | | | | | [address] | | | | | | [phone] | | | | | | | | +--------+ + + + + documented as of this encounter Visit Diagnoses Not on filedocumented in this encounter"
--- OUTSIDE RECORDS SUMMARY | ~2019-10-18 | XMS | Encounter Summary ---
Demographics + + + | Address | [address] | | | [place] [address] | + + + | Home Phone | | + + + | Preferred Language | Unknown | + + + | Marital Status | | + + + | Church Affiliation | NRP | + + + | Race | White | + + + | Ethnic Group | Not or | + + + Author + + + | Author | [facility] | + + + | Organization | [facility] | + + + | Address | Unknown | + + + | Phone | Unavailable | + + + Support + + + + + | Name | Relationship | Address | Phone | + + + + + | Pooja Valdez | ECON | [address] | | | | | [place] | | | | | [address] | | + + + + + Care Team Providers + +------+ + | Care Tool Crib Lead Name | Role | Phone | + +------+ + | Hemalatha Lawrence PA-C | PCP | | + +------+ + Encounter Details +--------+ + + + + | Date | Type | Department | Care Team | Description | +--------+ + + + + | 04/22/ | Inside | [facility] | Judy Gonzalez MD | | | 2018 | Referral | [facility] [address] | [address] | | | | Order | [address] Mailcode: | [place], [place] | | | | | [facility] | [address] | | | | | Health and Healing, | [phone] | | | | | [address] | | | | | | [place], [place] | | | | | | [address] | | | | | | [phone] | | | +--------+ + + + [...] 12/15/ | Office | Pre-operative | 2, [facility] [address] | | | 2020 | Visit | Medicine | [address] | | | | | | [place] [address] | | +--------+ + + + + | 01/04/ | Procedure | Surgery | | | | 2019 | Pass | | | | +--------+ + + + + | 01/25/ | Office | Otolaryngology | Santos Valdivia, | | | 2019 | Visit | | [address] [facility] | | | | | | [address] | | | | | | [place], [place] | | | | | | [address] | | | | | | [phone] | | | | | | | | +--------+ + + + + documented as of this encounter Results EGLiu (05/04/2018 9:11 AM PDT) + + | Specimen | + + | | + + + +--- + | Narrative | Pe rformed At | + +--- + | MRN: | [facility] | | [id number] Date: 05/04/2018Patient Name: Mynor Booth #: | EN DOSCOPY | | [id number] of : 1970CSN: [id number] Type: | | | AmbulatoryRoom: GI 2Procedure: Upper GI | | | endoscopyIndications: Dysphagia; s/p RYGB in 01/23 with | | | anastomotic stricture s/p EGD dil on | | | 04/21/18 with improvement x 1 weekProviders: CLAIR Ferreira | | | MD CHANG (Doctor), BLU GANDHI RN | | | (Nurse), AVERY FOX, Bankruptcy Legal Assistant (Bankruptcy Legal Assistant)Referring MD: | | | CHANEL LERNER, MDRequesting Provider: Medicines: | | | Midazolam 6 mg IV, Fentanyl 200 micrograms IVComplications: | | | No immediate complications.Procedure: Pre-Anesthesia | | | Assessment: - ASA Grade Assessment: II | | | - A patient with mild systemic disease. | | | Prior to the procedure, a History and | | | Physical with airway assessment was | | | performed (see patient record), and | | | patient medications and allergies were reviewed. The | | | risks and benefits of the procedure and the sedation | | | options and risks were discussed. All | | | questions were answered and informed | | | consent was obtained. After reviewing | | | the risks and benefits, the patient was deemed | | | in satisfactory condition to undergo the procedure. | | | Immediately prior to administration of | | | medications, the patient was | | | re-assessed for adequacy to receive | | | sedatives. The heart rate, respiratory rate, oxygen | | | saturations, blood pressure, adequacy of pulmonary | | | ventilation, and response to care were | | | monitored throughout the procedure. The | | | physical status of the patient was | | | re-assessed after the procedure. The | | | Olympus GIF-[id number] Gastroscope #[id number] was | | | introduced through the mouth, and advanced to the | | | mid-jejunum. The upper GI endoscopy was accomplished | | | without difficulty. The patient | | | tolerated the procedure well.Estimated | | | Blood Loss: Estimated blood loss: none.Findings: The | | | examined esophagus was normal. 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 The gastrojejunal anastomosis was | | | characterized by moderate stenosis. This was traversed after | | | dilation. The pouch was other matamoros normal appearing without | | | retained food. A TTS dilator was passed through the scope and to the | | | jejunum with ease; the opening was large rnough to be able to | | | see the jejunum. Dilation with a 12-13.5-15 mm x 5.5 cm CRE | | | balloon allowed passage of the gastroscope and subsequent | | | dilation performed with a 15-16.5-18 mm x 5.5 cm CRE balloon | | | dilator was performed to approximately 17 mm with appropriate | | | mucosal rent. no jose seen The examined jejunum was | | | normal.Moderate Sedation: Moderate (conscious) sedation was | | | administered by the endoscopy nurse and supervised by the | | | endoscopist. The following parameters were monitored: oxygen | | | saturation, heart rate, blood pressure, and response to care. 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 Dilated | | | again today to 17 mm.Recommendation: | | | - Repeat upper endoscopy in 2 weeks for retreatment. | | | - soft diet today, then ADAT and keep track of | | | symptomsCLAIR DOWNING MD05/04/2018 9:52:44 AMNumber of Addenda: | | | 0Note Initiated On: 05/04/2018 9:11 [facility] Letter to: HEMALATHA Ferreira | | | CHADWICK LAWRENCE | | | - soft diet today, then ADAT and keep track of symptoms | | |CLAIR DOWNING MD | | |05/04/2018 9:52:44 AM | | |Number of Addenda: 0 | | |Note Initiated On: 05/04/2018 9:11 AM | | |CC Letter to: | | | HEMALATHA LAWRENCE PA-C | | + +--- + + +---------+ + + | Performing | Address | City/State/Zipcode | Phone Number | | Organization | | | | + +---------+ + + | [facility] | | | | + +---------+ + + documented in this encounter Visit Diagnoses + + | Diagnosis | + + | S/P gastric bypass - Primary Bariatric surgery status | + + | Stenosis of gastrointestinal structure (HCC) | + + documented in this encounter"
--- OUTSIDE RECORDS SUMMARY | ~2019-10-18 | XMS | Encounter Summary ---
Demographics + + + | Address | [address] | | | [place] [address] | + + + | Home Phone | | + + + | Preferred Language | Unknown | + + + | Marital Status | | + + + | Cheondoism Affiliation | NRP | + + + [...] [place] | | | | | [address] | | + + + + + Care Team Providers + +------+ + | Care Professor Of Oceanography Name | Role | Phone | + +------+ + | Hemalatha Lawrence PA-C | PCP | | + +------+ + Encounter Details +--------+ + + + + | Date | Type | Department | Care Team | Description | +--------+ + + + + | 09/02/ | Orders Only | Digestive Health | Lacie Gaxiola, | | | 2017 | | Center at [facility] [address] | RN [address] | | | | | [address] | [address] | | | | | Mailcode: Center | [place], [place] | | | | | for Health and | [address] | | | | | Healing, [address] | | | | | | [place], [place] | | | | | | [address] | | | | | | [phone] | | | +--------+ + + + [...] 12/15/ | Office | Pre-operative | 2, [facility] [address] | | | 2020 | Visit | Medicine | [address] | | | | | | [place] [address] | | +--------+ + + + + | 01/04/ | Procedure | Surgery | | | | 2019 | Pass | | | | +--------+ + + + + | 01/25/ | Office | Otolaryngology | Santos Valdivia, | | | 2019 | Visit | | [address] | | | | | [address] | | | | | | [place] | | | | | | [address] | | | | | | [phone] | | | | | | | | +--------+ + + + + documented as of this encounter Visit Diagnoses Not on filedocumented in this encounter"
--- OUTSIDE RECORDS SUMMARY | ~2019-10-18 | XMS | Encounter Summary ---
Demographics + + + | Address | [address] | | | [place] [address] | + + + | Home Phone | | + + + | Preferred Language | Unknown | + + + | Marital Status | | + + + | Latter-Day Affiliation | NRP | + + + | Race | White | + + + | Ethnic Group | Not or | + + + Author + + + | Author | [facility] | + + + | Organization | [facility] | + + + | Address | Unknown | + + + | Phone | Unavailable | + + + Support + + + + + | Name | Relationship | Address | Phone | + + + + + | Pooja Valdez | ECON | [address] | | | | | [place] | | | | | [address] | | + + + + + Care Team Providers + +------+ + | Care Rf Technician Name | Role | Phone | + +------+ + | Hemalatha Lawrence PA-C | PCP | | + +------+ + Encounter Details +--------+ + + + + | Date | Type | Department | Care Team | Description | +--------+ + + + + | 01/31/ | MyChart | Digestive Health | Kaylee Purcell, | Constipation | | 2017 | Encounter | Center at [facility] [address] | [facility] [address] | | | | | [address] | [place], [place] | | | | | Mailcode: Center | [address] | | | | | for Health and | [phone] | | | | | Healing, [address] | | | | | | [place], [place] | | | | | | [address] | | | | | | | [...] 12/15/ | Office | Pre-operative | 2, [facility] [place] [address] | | | 2020 | Visit | Medicine | [address] | | | | | | [place] [address] | | +--------+ + + + + [...] Rd | | | | | | [place] | | | | | | [address] | | | | | | [phone] | | | | | | | | +--------+ + + + + documented as of this encounter Visit Diagnoses Not on filedocumented in this encounter"
--- OUTSIDE RECORDS SUMMARY | ~2019-10-18 | XMS | Encounter Summary ---
Demographics + + + | Address | [address] | | | [place] [address] | + + + | Home Phone | | + + + | Preferred Language | Unknown | + + + | Marital Status | | + + + | Baptist Affiliation | NRP | + + + | Race | White | + + + | Ethnic Group | Not or | + + + Author + + + | Author | [facility] | + + + | Organization | [facility] | + + + | Address | Unknown | + + + | Phone | Unavailable | + + + Support + + + + + | Name | Relationship | Address | Phone | + + + + + | Pooja Valdez | ECON | [address] | | | | | [place] | | | | | [address] | | + + + + + Care Team Providers + +------+ + | Care Systems Accountant Name | Role | Phone | + +------+ + | Hemalatha Lawrence PA-C | PCP | | + +------+ + Reason for Visit + + + | Reason | Comments | + + + | Return Patient | | + + + Office Visit - E/M Services (Routine) +--------+ + + + + + | Status | Reason | Specialty | Diagnoses / | Referred By | Referred To | | | | | Procedures | Contact | Contact | +--------+ + + + + + | Closed | BAR: | Surgery | | Non-[facility] | Bar | | | Scheduled | | | Epic Dept | [facility] | | | with [facility] | | | | [facility] [address] | | | | | | | [address] | | | | | | | Mailcode: | | | | | | | [facility] | | | | | | | Health and | | | | | | | Healing, | | | | | | | [address] | | | | | | | [place], [place] | | | | | | | [address] | | | | | | | Phone: | | | | | | | [phone] | | | | | | | Fax: | | | | | | | [phone] | +--------+ + + + + + Encounter Details +--------+---------+ + + + | Date | Type | Department | Care Team | Description | +--------+---------+ + + + | 12/30/ | Office | Digestive Health | Arvin Altamirano, | Morbid obesity with | | 2018 | Visit | [facility] [address] | MD [address] | BMI of 40.0-44.9, | | | | [address] | [place], [place] | adult (HCC) (Primary | | | | Mailcode: Center | [address] | Dx); Insulin | | | | for Health and | | dependent diabetes | | | | [facility] | | mellitus ([facility]); JOSE | | | | [place], [place] | | on CPAP; Essential | | | | [address] | | hypertension; Other | | | | | | hyperlipidemia | +--------+---------+ + + + Social History [...] + + + | Blood Pressure | 133/81 | 12/30/2017 11:10 AM | | | | | PST | | + + + + + | Pulse | 80 | 12/30/2017 11:10 AM | | | | | PST | | + + + + + | Temperature | 36.8 C (98.2 F) | 12/30/2017 11:10 AM | | | | | PST | | + + + + + | Respiratory Rate | 18 | 12/30/2017 11:10 AM | | | | | PST | | + + + + + | Oxygen Saturation | - | - | | + + + + + | Inhaled Oxygen | - | - | | | Concentration | | | | + + + + + | Weight | 148.7 kg (327 lb | 12/30/2017 11:10 AM | | | | 14.4 oz) | PST | | + + + + + | Height | 189.2 cm (6' 2.5") | 12/30/2017 11:10 AM | | | | | PST | | + + + + + | Body Mass Index | 41.54 | 12/30/2017 11:10 AM | | | | | PST | | + + + + + documented in this encounter Patient Instructions Patient Instructions Arvin Altamirano MD - 12/30/2017 11:20 AM PSTSmoking: We do not perfor m surgeries on patients who are smoking and strongly discourage nicotine use after surgery. Nicotine reduces oxygen to the healing stomach. There are also vender complications of p oor wound healing and gastric ulcers. These ulcers are started by smoking or using other ni cotine products (vapor cigarettes etc), NSAIDS(ibuprofen, advil, motrin, naprosyn/naproxen/a leve), and alcohol. We will test you prior to surgery. You cannot be taking any nicotine products (replacement, or e cigarettes) prior to surgery. If your surgery is scheduled and your test is positive we will cancel surgery. documented in this encounter Progress Notes Arvin Altamirano MD - 12/30/2017 11:20 AM PSTFormatting of this note might be different fro m the original. BARIATRIC SURGERY PREOP EXAM & RISK ASSESSMENT DATE OF VISIT: 12/30/17 PROPOSED DATE OF ADMISSION: TBD PROPOSED PROCEDURE: Laparoscopic sleeve gastrectomy vs gastric bypass HISTORY: Mynor Valdez is a 47 y.o. male who has failed prior attempts at sustained dieta ry/medical weight loss and desires surgical weight loss in order to get off as many DM2 medi cations as possible. He feels he would be more active at work and be able to participate in activities that they do together at work like the color run. He is very motivated to feel better and is committed to our program and using surgery to schmidt ve success in healthy lifestyle activities. Past Medical History: Diagnosis Date Anxiety Depression HBP (high blood pressure) Headache High cholesterol Numbness and tingling JOSE on CPAP Thyroid activity decreased Past Surgical History Procedure Laterality Date Ankle fracture surgery 2001 Hand surgery Left 2006 Sinus surgery 2005 Sinus surgery 2013 Current Outpatient Prescriptions Medication Sig atorvastatin 10 mg oral tablet Take 1 tablet by mouth once daily. buPROPion XL 300 mg oral tablet extended release 24 hr Take 300 mg by mouth once daily. Cholecalciferol (Vitamin D3) 2,000 unit oral tablet Take 1 tablet by mouth once daily. Indications: Vitamin D Deficiency Cyanocobalamin-Cobamamide (B-12 PLUS) 5,000-100 mcg sublingual tablet, sublingual Place under tongue. DULoxetine 60 mg oral capsule,delayed release(DR/EC) Take 60 mg by mouth once daily. gabapentin 300 mg oral capsule Take 300 mg by mouth three times daily. HUMALOG KWIKPEN 100 unit/mL subcutaneous insulin pen 20 Units three times daily. iron [id number] 150 mg iron-200 mg-250 mcg oral tablet Take 5,000 mcg by mouth once daily. LEVOMEFOLATE CALCIUM (L-METHYLFOLATE ORAL) Take 15 mcg by mouth once daily. levothyroxine 200 mcg oral tablet Take 200 mcg by mouth once daily. 6 days a week per p t. lisinopril 5 mg oral tablet Take 1 tablet by mouth once daily metoprolol succinate 200 mg oral tablet extended release 24 hr Take 200 mg by mouth onc e daily. TRESIBA FLEXTOUCH U-200 200 unit/mL (3 mL) subcutaneous insulin pen 80 Units once daily . VICTOZA 2-CAITLIN 0.6 mg/0.1 mL (18 mg/3 mL) subcutaneous pen injector 1.8 mg. No current facility-administered medications for this visit. Allergies Allergen Reactions Actos [Pioglitazone Hcl] Headache Cephalexin Hcl Unknown Metformin Diarrhea Family History Problem Relation Diabetes Mother Thyroid Mother Obesity Mother Breast Cancer Mother Stroke Mother age mid 70's Parkinson's Disease Father Cancer Father High blood pressure Father Obesity Sister Diabetes Sister Diabetes Brother High blood pressure Brother Obesity Brother Cancer Sister Fibromyalgia Sister High blood pressure Sister Obesity Brother Social History Narrative ECG 07/08/2017 - SINUS RHYTHM. HR 73. NONSPECIFIC INTRAVENTRICULAR CONDUCTION DELAY. LEFT VENTRICULAR HYPERTROPHY- ABNORMAL ECG (I personally reviewed tracing) Records reviewed from Care Everywhere and summarized below: [place] Myocardial Perfusion Study with Exercise ([facility]) 12/15/2010 - H ISTORY: Chest pain.Abnormal EKG. FINDINGS: No prior cardiac SPECT studies for comparison . The estimated left ventricular ejection fraction is 52%.There is mildly heterogeneous uptake throughout the left ventricular myocardium.No significant fixed or reversible def ects can be identified.There are mildly reduced counts within the cardiac apex, probably related to normal variant apical thinning. IMPRESSION: 1.No evidence of ischemia at the level of stress achieved. 2.Estimated LVEF is 52%. REVIEW OF SYSTEMS: All 14 systems reviewed and negative except as noted above. PHYSICAL EXAMINATION: BP 133/81 | Pulse 80 | Temp (Src) 36.8 C (98.2 F) (Oral) | RR 18 | Ht 1.892 m (6' 2.5") | Wt 148.7 kg (327 lb 14.4 oz) | BMI 41.54 kg/(m^2) GENERAL: Well nourished, well developed and in no apparent distress, alert and active. HEENT: Grossly within normal limits. Scar on mid-forehead well healed, redundant soft tissu e at chin NECK: Supple, full range of motion. SKIN: No visible rashes. CHEST: Respirations even and unlabored. CARDIAC: Extremities warm and well perfused. ABDOMEN: Soft, nontender, nondistended, no mass, no hepatosplenomegaly. GROINS/: Deferred. EXTREMITIES: No edema, normal range of motion. NEUROLOGIC: Moves all extremities spontaneously. No apparent neurologic deficits. Cranial nerves 2-12 grossly intact. Gait symmetric and age appropriate. ASSESSMENT:: A(n) 47 y.o. male who meets and or exceeds NIH criteria for morbid obesity and comorbidities related to obesity including DM2, HTN, HLP, JOSE on CPAP which may be improved with bariatric surgery. PLAN: Laparoscopic gastric bypass DISCUSSION: A full PARQ session was held. We had a lengthy discussion regarding laparoscopi c gastric bypass verses sleeve gastrectomy. The risks of both procedures were discussed and include but are not limited to , myocardial infarction, stroke, bleeding, infection, an astomotic leak, anastomotic stricture, gastric conduit torsion, gastric conduit stenosis, de velopment or worsening of gastroesophageal reflux disease, DVT/PE, injury to bowel or other structures upon entering the abdomen, conversion to an open procedure, internal hernia, inci sional hernia especially if converted to an open procedure, bowel obstruction, chronic nause a, and chronic nutritional/vitamin deficiencies despite supplementation. In addition, the ri sk of poor or no weight loss was discussed. The patient s expected weight loss of approxim ately 50-60% of excess body weight for sleeve gastrectomy and 50-70% for gastric bypass was calculated for this patient s height and current weight, along with the fact that there is a wide range of weight loss results after bariatric surgery. Rare patients do not lose much weight at all after bariatric surgery, and this variability is thought to be due to genetic differences among patients that are not yet fully understood. I quoted an approximate overa ll 7-8% risk of all pablo-operative complications in the pablo-operative period, a 1-5% risk o f serious pablo-operative complications, a 4-5% rate of reoperation over the skilled nursing (i.e. years), as well as other late complications that may or may not require operation or other i ntervention. I stressed that all complication rates and outcomes were estimates only. The mark lesa appeared to understand, was given an opportunity to ask questions, and agrees to proce ed. After a long discussion, he has selected LRY[facility] given desire for improvement of his DM2. He understands the long-term risk of gastric bypass, to include, marginal ulcer and internal h ernia. He plans to be adherent with the program and have continued postop followup We discussed possible complications, and if any occur, they may need longer hospitalization and additional procedures. We discussed the specific complications as outlined above, specifically addressing the fact that leak rates may be higher for sleeve gastrectomy than gastric bypass, and may approach 5%. We reviewed the [facility] consent form. We discussed that we did not cover all possible risks and outcomes, but that I have provided the patient with a summary of the most common and im portant risks. We discussed the possibility of blood transfusion or liver biopsy with attend ant risks, the need for sedation and anesthesia with attendant risks that would be reviewed in detail with the anesthesiologists, the possibility that observers may be present and phot ographs may be taken in the operating room for teaching purposes, and that all of observers and photographs will be compliant with HIPPA. We discussed the fact that fellows and residen ts would be involved in intra-operative and post-operative care but that I will be the prima ry surgeon, present for the entire procedure, and manage and supervise all care delivered. Jesse uriostegui discussed the fact that if we encounter anything unexpected in the operating room (for exa mple cirrhosis or tumors) that I would adjust the operative plan accordingly based on my bes t judgment. The patient appeared to understand, was given an opportunity to ask questions, a nd agrees to proceed. I spent 38 minutes with the patient and >50% of this time was spent counseling the patient about surgery and surgical risks/expectations. Electronically signed on 12/30/2017 at 11:29 AM ARVIN ALTAMIRANO MD. documented in this en counter Plan of Treatment +--------+ + + + + | Date | Type | Specialty | Care Team | Description | +--------+ + + + + | 12/15/ | Office | Pre-operative | 2, [facility] [address] | | | 2019 | Visit | Medicine | [address] | | | | | | [place] [address] | | +--------+ + + + + [...] [address] | | | | | | [place], [place] | | | | | | [address] | | | | | | [phone] | | | | | | | | +--------+ + + + + documented as of this encounter Visit Diagnoses + + | Diagnosis | + + | Morbid obesity with BMI of 40.0-44.9, adult ([facility]) - Primary | + + | Insulin dependent diabetes mellitus ([facility]) Type II or unspecified type diabetes | | mellitus without mention of complication, not stated as uncontrolled | + + | JOSE on CPAP Obstructive sleep apnea (adult) (pediatric) | + + | Essential hypertension | + + | Other hyperlipidemia | + + documented in this encounter
--- OUTSIDE RECORDS SUMMARY | ~2019-10-18 | XMS | Encounter Summary ---
Demographics + + + | Address | [address] | | | [place] [address] | + + + | Home Phone | | + + + | Preferred Language | Unknown | + + + | Marital Status | | + + + | Yazidi Affiliation | NRP | + + + | Race | White | + + + | Ethnic Group | Not or | + + + Author + + + | Author | [facility] | + + + | Organization | [facility] | + + + | Address | Unknown | + + + | Phone | Unavailable | + + + Support + + + + + | Name | Relationship | Address | Phone | + + + + + | Pooja Valdez | ECON | [address] | | | | | [place] | | | | | [address] | | + + + + + Care Team Providers + +------+ + | Care Utilization Review Specialist Name | Role | Phone | + +------+ + | Hemalatha Lawrence PA-C | PCP | | + +------+ + Encounter Details +--------+ + + + + | Date | Type | Department | Care Team | Description | +--------+ + + + + | 05/25/ | MyChart | Digestive Health | Arvin Altamirano, | RE: Egd on | | 2018 | Encounter | [facility] [address] | MD [address] | | | | | [address] | [place], [place] | | | | | Mailcode: Center | [address] | | | | | for Health and | [phone] | | | | | [facility] [address] | | | | | | [place], [place] | | | | | | [address] | | | | | | | [...] 12/15/ | Office | Pre-operative | 2, [facility] [address] | | | 2020 | Visit | Medicine | [address] | | | | | | [place] [address] | | +--------+ + + + + [...] [place] | | | | | | [address] | | | | | | [phone] | | | | | | | | +--------+ + + + + documented as of this encounter Visit Diagnoses Not on filedocumented in this encounter"
--- OUTSIDE RECORDS SUMMARY | ~2019-10-18 | XMS | Encounter Summary ---
Demographics + + + | Address | [address] | | | [place] [address] | + + + | Home Phone | | + + + | Preferred Language | Unknown | + + + | Marital Status | | + + + | Baptist Affiliation | NRP | + + + | Race | White | + + + | Ethnic Group | Not or | + + + Author + + + | Author | [facility] | + + + | Organization | [facility] | + + + | Address | Unknown | + + + | Phone | Unavailable | + + + Support + + + + + | Name | Relationship | Address | Phone | + + + + + | Pooja Valdez | ECON | [address] | | | | | [place] | | | | | [address] | | + + + + + Care Team Providers + +------+ + | Care Toll Bridge Attendant Name | Role | Phone | + [...] 2017 | Encounter | [facility] [address] | | preop class | | | | [address] | | | | | | Mailcode: Center | | | | | | for Health and | | | | | | Healing, [address] | | | | | | [place], [place] | | | | | | [address] | | | | | | [phone] | | | +--------+ + + + [...] 12/15/ | Office | Pre-operative | 2, [facility] [address] | | | 2019 | Visit | Medicine | [address] | | | | | | [place] [address] | | +--------+ + + + + [...] [address] | | | | | | [place], [place] | | | | | | [address] | | | | | | [phone] | | | | | | | | +--------+ + + + + documented as of this encounter Visit Diagnoses Not on filedocumented in this encounter"
--- OUTSIDE RECORDS SUMMARY | ~2019-10-18 | XMS | Encounter Summary ---
Demographics + + + | Address | [address] | | | [place] [address] | + + + | Home Phone | | + + + | Preferred Language | Unknown | + + + | Marital Status | | + + + | Buddhism Affiliation | NRP | + + + | Race | White | + + + | Ethnic Group | Not or | + + + Author + + + | Author | [facility] | + + + | Organization | [facility] | + + + | Address | Unknown | + + + | Phone | Unavailable | + + + Support + + + + + | Name | Relationship | Address | Phone | + + + + + | Pooja Valdez | ECON | [address] | | | | | [place] | | | | | [address] | | + + + + + Care Team Providers + +------+ + | Care Stick Roller Name | Role | Phone | + +------+ + | Hemalatha Lawrence PA-C | PCP | | + +------+ + Encounter Details +--------+ + + + + | Date | Type | Department | Care Team | Description | +--------+ + + + + | 04/29/ | Documentati | Endoscopic | Lab, Gi Procedure | | | 2018 | on | Procedural Unit at | | | | | | [address] | | | | | | [address] | | | | | | Mailcode: [facility] | | | | | | [address] | | | | | | [address] [place], [place] | | | | | | [address] | | | | | | [phone] | | | +--------+ + + + [...] Office | Pre-operative | 2, [facility] [address] | | | 2020 | Visit | Medicine | [address] | | | | | | [place] [address] | | +--------+ + + + + [...] [address] | | | | | | [place], [place] | | | | | | [address] | | | | | | [phone] | | | | | | | | +--------+ + + + + documented as of this encounter Visit Diagnoses Not on filedocumented in this encounter"
--- OUTSIDE RECORDS SUMMARY | ~2019-10-18 | XMS | Encounter Summary ---
Demographics + + + | Address | [address] | | | [place] [address] | + + + | Home Phone | | + + + | Preferred Language | Unknown | + + + | Marital Status | | + + + | Episcopal Affiliation | NRP | + + + | Race | White | + + + | Ethnic Group | Not or | + + + Author + + + | Author | [facility] | + + + | Organization | [facility] | + + + | Address | Unknown | + + + | Phone | Unavailable | + + + Support + + + + + | Name | Relationship | Address | Phone | + + + + + | Pooja Valdez | ECON | [address] | | | | | [place] | | | | | [address] | | + + + + + Care Team Providers + +------+ + | Care Commercial Representative Name | Role | Phone | + +------+ + | Rian Sanchez MD | PCP | | + +------+ + Reason for Referral Diagnostic Testing (Routine) +--------+--------+ + + + + | Status | Reason | Specialty | Diagnoses / | Referred By | Referred To | | | | | Procedures | Contact | Contact | +--------+--------+ + + + + | Closed | | Cardiology | Diagnoses | Jake, | | | | | | Preop | Poly Amaro | | | | | | cardiovascul | PA-C 8623 | | | | | | ar exam | [address] | | | | | | Abnormal ECG | [place], | | | | | | Abnormal | [place] | | | | | | echocardiogr | [address] | | | | | | am | Phone: | | | | | | Procedures | [phone] | | | | | | STRESS | Fax: | | | | | | ECHOCARDIOGR | [phone] | | | | | | AM, CONVERT | | | | | | | DOBUTAMINE | | | | | | | PRN | | | +--------+--------+ + + + + Diagnostic Testing (Routine) +--------+--------+ + + + + | Status | Reason | Specialty | Diagnoses / | Referred By | Referred To | | | | | Procedures | Contact | Contact | +--------+--------+ + + + + | Closed | | Cardiology | Diagnoses | aJke, | | | | | | Preop | Poly Amaro, | | | | | | cardiovascul | PA-C 0754 | | | | | | ar exam | [address] | | | | | | Abnormal ECG | [place], | | | | | | Procedures | [place] | | | | | | | [address] | | | | | | TRANSTHORACI | Phone: | | | | | | C | [phone] | | | | | | ECHOCARDIOGR | Fax: | | | | | | AM, ADULT | [phone] | | +--------+--------+ + + + + Reason for Visit +--------+ + | Reason | Comments | +--------+ + | Preop | bariatric surgery | +--------+ + Consultation (Routine) +--------+--------+ + + + + | Status | Reason | Specialty | Diagnoses / | Referred By | Referred To | | | | | Procedures | Contact | Contact | +--------+--------+ + + + + | Closed | | Cardiology | Diagnoses | Wallace, | Jake, | | | | | Pre-op | DANIEL Hernandez | Poly Amaro, | | | | | evaluation | [address] | [address] | | | | | Morbid | [address] | [address] | | | | | obesity, BMI | [place], [place] | [place], [place] | | | | | unknown | [address] | [address] | | | | | (HCC) | Phone: | Phone: | | | | | Hyperlipidem | [phone] | [phone] | | | | | ia, | Fax: | Fax: | | | | | unspecified | [phone] | [phone] | | | | | hyperlipidem | | | | | | | ia type | | | | | | | Essential | | | | | | | hypertension | | | | | | | JOSE on | | | | | | | CPAP | | | | | | | Abnormal EKG | | | | | | | Procedures | | | | | | | CONSULT TO | | | | | | | CARDIOLOGY | | | +--------+--------+ + + + + Encounter Details +--------+---------+ + + + | Date | Type | Department | Care Team | Description | +--------+---------+ + + + | 09/03/ | Office | Cardiology | Poly Joseph | Preop cardiovascular | | 2017 | Visit | Preventive at [facility] | [address] | exam (Primary Dx); | | | | [address] | [address] [place], | Pure | | | | Mailcode: [id number] | [place] [address] | hypercholesterolemia | | | | [facility] | [phone] | ; Abnormal ECG; | | | | and Healing, | | Abnormal | | | | [address] | | echocardiogram; | | | | [place], [place] | | Abnormal stress | | | | [address] | | echo; Asymptomatic | | | | [phone] | | left ventricular | | | | | | systolic dysfunction | +--------+---------+ + + + Social History [...] + + + | Blood Pressure | 120/76 | 09/03/2017 10:00 AM | | | | | PDT | | + + + + + | Pulse | 86 | 09/03/2017 10:00 AM | | | | | PDT | | + + + + + | Temperature | 36.8 C (98.3 F) | 09/03/2017 10:00 AM | | | | | PDT | | + + + + + | Respiratory Rate | 14 | 09/03/2017 10:00 AM | | | | | PDT | | + + + + + | Oxygen Saturation | 97% | 09/03/2017 10:00 AM | | | | | PDT | | + + + + + | Inhaled Oxygen | - | - | | | Concentration | | | | + + + + + | Weight | 145.2 kg (320 lb) | 09/03/2017 10:00 AM | | | | | PDT | | + + + + + | Height | 188 cm (6' 2") | 09/03/2017 10:00 AM | | | | | PDT | | + + + + + | Body Mass Index | 41.09 | 09/03/2017 10:00 AM | | | | | PDT | | + + + + + documented in this encounter Patient Instructions Patient Instructions Poly Joseph PA-C - 09/03/2017 10:15 AM PDTGet results of Ches t xray done in 2017 at [facility] in [place] Schedule resting echocardiogram Start Atorvastatin 10 mg qHS - with enough weight loss, you may be able to taper down on th e dose or come off if diabetes goes into remission. I would defer that decision for further management to your PCP documented in this encounter Progress Notes Poly Joseph PA-C - 09/03/2017 10:15 AM PDTReviewed results of recent CV Tests 2017 (see media tab): Exercise Echocardiogram ([facility]) 11/15/2017: MEDICAL DECISION MAKING: Are active cardiac conditions present? No Calculate the combined surgical and patient-specific risk: RCRI risk calculator (one point for each "yes" answer) A. Elevated risk surgery?: yes B. Ischemic heart disease: no C. Compensated / prior heart failure: no CHF, but he does have global LVSF at 45% D. Diabetes mellitus (treated with insulin): yes E. Renal insufficiency (Cr>2): no F. Cerebrovascular disease: no Risk of MACE 0 risk factors - 0.4% 1 risk factor - 0.9% 2 risk factors - 6.6% 3 risk factors - 11% The risk of major adverse cardiac event (MACE) is: 7% (greater than 1%). Surgery Specific Risk RCRI - (intraperitoneal; intrathoracic; suprainguinal vascular) Preoperative Recommendations: I reviewed the most recent stress echocardiogram. No evidence of significant inducible isch emia - not diagnostic for CAD, but meets MET level for preop evaluation. No Further risk str atification is indicated prior to surgery. Per Revised Cardiac Risk Index, predicted risk of perioperative cardiac morbidity/mortality is approximately 7% (considered moderate risk). F urther cardiac intervention would not reduce his risk - already on BB, IRVIN-I and statin. Tj t said, the weight loss resulting from bariatric surgery will likely give him the most benef it in reduction of future risk. I spoke with Mynor regarding his global hypokinesis at rest. Cannot rule out CAD by stres s echo, and would think coronary CT angiogram would be helpful if insurance covers it. Will order it. He was informed to check to make sure insurance will cover it and what his co-pay will be before scheduling He was instructed to call [phone] Angiogram Patient verbalized understanding of plan of care as outlined. Poly Grove PA-C - 09/03/2017 10:15 AM PDTReviewed results of recent CV Tests: Echocardiogram ([facility] [employer]) 10/01/2017: Preoperative Recommendations: I reviewed the most recent echocardiogram. He has mildly reduced LVSF with global hypokines is, which appears to be a new finding, as well as mildly reduced RVSF. Further risk stratif ication is indicated prior to surgery to assess for inducible ischemia given that nuclear pe rfusion study is now over 6 years old. Will get stress echo to avoid possibility of balanced ischemia Schedule stress echocardiogram - (ordered as external) Do NOT take Metorpolol for 2 days before your test. You can restart after the test is compl eted Justin Beach DO - 09/03/2017 10:15 AM PDTI reviewed the history, physical examination, assessment, a nd plan in the note written by LUIZ De La Cruz and agree with the documented findings and p zoya of care. Kris Brown DO java software architect and Radiology [facility] [place] Poly Laguna PA-C - 09/03/2017 10:15 AM PDTFormatting of this note might be different from the kristina zaragoza CARDIOLOGY ENCOUNTER NOTE Reason for Visit: This is a scheduled visit for cardiac evaluation and risk assessment History: Per chart review: Mynor Valdez is a 47 y.o. White man with history of DM, Hyperlipidemia , HTN, Sleep Apnea on CPAP, Severe Obesity who is referred by Mary SANCHEZ for cardiac evaluation and risk assessment for bariatric surgery. Per referral notes "Patient pursuing bariatric surgery with abnormal EKG, hyperlipidemia, morbid obesity, HTN, and JOSE on CPAP. Please evaluate for risk and optimization prior to surgery" Today, Mynor denies history of coronary artery disease; denies history of myocardial infar ction. he denies history of congestive heart failure; he denies history of DVT/PE Mynor denies palpitations, tachycardia, exertional chest pain or pressure, paroxysmal noct urnal dyspnea, orthopnea, lower extremity edema, dizziness, syncope History of Endocarditis or need for Endocarditis Prophylaxis? no History of Phen-Fen exposure? no Exercise History: On his feet and does stairs at work all day - climbs 6 flights all at once without needing to stop. Does reports breathing heavy around 4 flights but doesn't need to stop. MET ASSESSMENT: > 4 METS Various physical activities and energy consumed in METs per hour Activity METs/hr Climbing stairs 4.0 Past Medical, Family & Social Histories: Medical, Family & Social histories were reviewed and updated in EMR based on conversation w johny Lowe, and noteable for the following: (Please see that section of the EMR for full det ails) - all reviewed with Mynor today. Past Medical History: Diagnosis Date Anxiety Depression HBP (high blood pressure) Headache High cholesterol Numbness and tingling JOSE on CPAP Thyroid activity decreased Current Outpatient Prescriptions Medication Sig AUGMENTIN 875 MG-125 MG TAB take 1 tablet by oral route every 12 hours buPROPion XL 300 mg oral tablet extended [...] insulin pen 20 Units three times daily. LEVOMEFOLATE CALCIUM (L-METHYLFOLATE ORAL) Take 15 mcg by mouth once daily. levothyroxine 200 mcg oral tablet Take 200 mcg by mouth once daily. 6 days a week per p t. metoprolol succinate 200 mg oral tablet extended release 24 hr Take 200 mg by mouth onc e daily. TRESIBA FLEXTOUCH U-200 200 unit/mL (3 mL) subcutaneous insulin pen 80 Units once daily . VICTOZA 2-CAITLIN 0.6 mg/0.1 mL (18 mg/3 mL) subcutaneous pen injector 1.8 mg. No current facility-administered medications for this visit. Family History Problem Relation Diabetes Mother Thyroid Mother Obesity Mother Breast Cancer Mother Stroke Mother age mid 70's Parkinson's Disease Father Cancer Father High blood pressure Father Obesity Sister Diabetes Sister Diabetes Brother High blood pressure Brother Obesity Brother Cancer Sister Fibromyalgia Sister High blood pressure Sister Obesity Brother Social History Substance Use Topics Smoking status: Former Smoker Packs/day: 0.75 Years: 6.00 Quit date: 11/08/1993 Smokeless tobacco: Never Used Comment: quit 23 years ago Alcohol use No Review of Systems: Pertinent items are noted in HPI. General: Denies fevers, fatigue, chills and sweats . Eyes: Denies eye pain, loss of vision, visual blurring and double vision. Ears, Nose, Throat: Denies ear pain, decreased hearing, sinus pain, pharyngitis and vertigo . Respiratory: Denies cough, wheezing, history of COPD and history of asthma. Musculoskeletal: Denies history of osteoarthritis, history of gout, history of fibromyalgi a and muscular weakness. Cardiovascular: See HPI. Gastrointestinal: Reports 2 days ago went to ED with nausea and vomiting. Reports he was d iagnosed with "gastritis". Denies GERD symptoms, abdominal pain, diarrhea and constipation. Neurologic: Used to get migraines (last one 6-12 months ago). Denies tremor, seizure, hist ory of TIA and history of CVA. Skin: Denies rash and skin infection. Psychological: Reports depression and anxiety - takes meds with good control. Denies insom sammy. Heme/Lymphatic: Denies bleeding disorder, clotting disorder, abnormal bruising and abnorma l bleeding. Endocrine: Denies involuntary weight loss, involuntary weight gain, heat intolerance and cold intolerance All other systems negative. Physical Exam: Vitals reviewed and noted as: BP 120/76 | Pulse 86 | Temp (Src) 36.8 C (98.3 F) (Oral) | RR 14 | Ht 1.88 m (6' 2") | Wt 145.2 kg (320 lb) | SpO2 97% | BMI 41.09 kg/(m^2) Body mass index is 41.09 kg/(m^2). Vital signs reviewed. General: comfortable, alert, cooperative, well-appearing and obese HEENT: normal conjunctivae and anicteric sclerae, PERRLA, EOMI, oropharynx clear without l esion or exudates, normal dentition and fundi benign Neck: supple without restricted range of motion, thyroid symmetric & normal in size, trach ea midline and no carotid bruits. Unable to appreciate jugular venous distension or cervical lymphadenopathy due to body habitus Heart and Lung: chest is clear without rales or wheezing and respiratory effort is unlabore d, S1, S2 normal, no S3 or S4, no murmur, click, or rub , regular rate and rhythm , peripher al pulses brisk and no pedal edema, unable to palpate PMI or heaves; femoral bruits: unable to appreciate; abdominal aortic bruits: unable to appreciate; abnormal aortic pulsations: u nable to appreciate due to body habitus Abdomen/rectal: abdomen is soft, no tenderness, rebound tenderness or guarding and bowel s ounds normal; unable to appreciate masses, organomegaly or bruits due to body habitus Extremities: extremities normal without deformity, no clubbing or cyanosis Neuro: normal gait and station, reflexes normal and symmetric, cranial nerves 2-12 intact and motor 5/5 strength globally with normal tone Psych: bright affect, not apparently anxious or depressed, judgment and insight appropriat e in context of visit, apparently normal recent and remote memory and oriented to time, pl irvin and person Laboratory/Diagnostics: Per chart review, reviewed today and summarized below: Lab Results Component Value Date CHOL 162 07/08/2017 LDL 91 07/08/2017 HDL 39 07/08/2017 TRI 159 07/08/2017 Lab Results Component Value Date A1C 6.9 (H) 07/08/2017 Lab Results Component Value Date NA 136 07/08/2017 K 3.9 07/08/2017 CL 107 07/08/2017 BICARB 27 07/08/2017 BUN 14 07/08/2017 CR 1.00 07/08/2017 GLU 125 07/08/2017 CA 9.0 07/08/2017 Lab Results Component Value Date TSH 0.24 (L) 07/08/2017 Lab Results Component Value Date HB 15.5 07/08/2017 HCT 45.2 07/08/2017 PLT 199 07/08/2017 The 10-year ASCVD risk score (Sukhi JESSICA Jr, et al., 2013) is: 5.4% Values used to calculate the score: Age: 47 years Sex: Male Is Non- : No Diabetic: Yes Tobacco smoker: No Systolic Blood Pressure: 120 mmHg Is BP treated: Yes HDL Cholesterol: 39 mg/dL Total Cholesterol: 162 mg/dL ECG 07/08/2017 - SINUS RHYTHM. HR 73. NONSPECIFIC INTRAVENTRICULAR CONDUCTION DELAY. LEFT VE NTRICULAR HYPERTROPHY- ABNORMAL ECG (I personally reviewed tracing) Records reviewed from Care Everywhere and summarized below: NM Myocardial Perfusion Study with Exercise ([facility]) 12/15/2010 - HIS TORY: Chest pain.Abnormal EKG. FINDINGS: No prior cardiac SPECT studies for comparison. The estimated left ventricular ejection fraction is 52%.There is mildly heterogeneous up take throughout the left ventricular myocardium.No significant fixed or reversible defec ts can be identified.There are mildly reduced counts within the cardiac apex, probably r elated to normal variant apical thinning. IMPRESSION: 1.No evidence of ischemia at the l evel of stress achieved. 2.Estimated LVEF is 52%. Cardiac Risk Stratification (based on 2014 ACC/AHA Guideline on Perioperative Cardiovascula r Evaluation and Management of Patients Undergoing Noncardiac Surgery): MEDICAL DECISION MAKING: Are active cardiac conditions present? No Calculate the combined surgical and patient-specific risk: RCRI risk calculator (one point for each "yes" answer) http://www.mdcalc.com/hdyoydh-gjchjhh-mpbk-losev-bee-gpleujdav-risk/ A. Elevated risk surgery?: yes B. Ischemic heart disease: no C. Compensated / prior heart failure: unknown - sleep apnea D. Diabetes mellitus (treated with insulin): yes E. Renal insufficiency (Cr>2): no F. Cerebrovascular disease: no The risk of major adverse cardiac event (MACE) is: unable to determine at this time Surgery Specific Risk RCRI - (intraperitoneal; intrathoracic; suprainguinal vascular) Assessment/Plan:: Preoperative Evaluation: Mynor Valdez is a 47 y.o. White man with history of DM, Hyperlipidemia, HTN, Sleep Apnea on CPAP, Severe Obesity who [facility] and [facility] assessment for bariatric surgery. he is undergoing intermediate risk surgery, with an exe rcise tolerance of > 4 METs with no symptoms suggestive of ischemia. LVSF is unknown. I do n ot think he needs stress testing as he has good exercise tolerance. However, given sleep ap leland, morbid obesity would like resting echocardiogram to assess baseline LVSF and RVSF as we ll. Per current guidelines, patients with DM 40 years and older with LDL > 70 and ASCVD scor e < 7.5% should be on a moderate intensity statin. In addition, there are potential perioper ative benefits to statins. In a recent international, prospective, cohort study of adult pat ients having noncardiac surgery, preoperative statin therapy was independently associated wi th a lower risk of cardiovascular outcomes at 30 days - preoperative statins were associated with significantly lower risk of all-cause mortality, myocardial injury after noncardiac mock rgery, and cardiovascular mortality; although no statistically significant differences in th e risk of myocardial infarction or stroke (Eur Heart J 2015;Sep 1(Epub ahead of print). In a ddition, in a recent retrospective, observational cohort analysis, early perioperative expos ure to a statin was associated with a significant reduction in all-cause perioperative morta lity and several cardiovascular and noncardiovascular complications [employer]ARNA[employer] Publ[employer] hed online October 26, 2016. Schedule resting echocardiogram Get results of Chest xray done in 2017 at [facility] in [place] Start Atorvastatin 10 mg qHS - with enough weight loss, you may be able to taper down on th e dose or come off if diabetes goes into remission. I would defer that decision for further management to your PCP I will addend note when test results back to give final preoperative recommendations - Recommend he continue all blood pressure medications perioperatively, as preventing sign ificant increases in double product or cardiac workload is renteria in preventing perioperative c ardiac complications. Continue statin medication perioperatively. I discussed the implications of the preoperative evaluation with Mynor including risk stra tification. Mynor verbalized understanding of plan of care and instructions as outlined. A report of this preoperative evaluation will be sent to PCP Rian Sanchez MD and referr ing provider/surgeon Mary Gonsalez [facility] CARDIOLOGY - PREVENTIVE [address] Mailcode: [id number] [facility] [place] [phone] documented in t his encounter Plan of Treatment +--------+ + + + + | Date | Type | Specialty | Care Team | Description | +--------+ + + + + | 12/15/ | Office | Pre-operative | 2, [facility] [address] | | | 2020 | Visit | Medicine | [address] | | | | | | [place] [address] | | +--------+ + + + + | 01/04/ | Procedure | Surgery | | | | 2020 | Pass | | | | +--------+ + + + + | 01/25/ | Office | Otolaryngology | Santos Valdivia, | | | 2019 | Visit | | [address] | | | | | | [address] | | | | | | [place], [place] | | | | | | [address] | | | | | | [phone] | | | | | | | | +--------+ + + + + + +------+--------+ + + | Name | Type | Priori | Associated Diagnoses | Order Schedule | | | | ty | | | + +------+--------+ + + | TRANSTHORACIC | ECG | Routin | Preop | Ordered: 09/03/2017 | | ECHOCARDIOGRAM, | | e | cardiovascular exam | | | ADULT | | | Abnormal ECG | | + +------+--------+ + + | STRESS | ECG | Routin | Preop | Ordered: 10/11/2017 | | ECHOCARDIOGRAM, | | e | cardiovascular exam | | | CONVERT DOBUTAMINE | | | Abnormal ECG | | | PRN | | | Abnormal | | | | | | echocardiogram | | + +------+--------+ + + documented as of this encounter Visit Diagnoses + + | Diagnosis | + + | Preop cardiovascular exam - Primary Pre-operative cardiovascular examination | + + | Pure hypercholesterolemia | + + | Abnormal ECG Nonspecific abnormal electrocardiogram (ECG) (EKG) | + + | Abnormal echocardiogram Nonspecific (abnormal) findings on radiological and other | | examination of other intrathoracic organs | + + | Abnormal stress echo Other nonspecific abnormal cardiovascular system function study | + + | Asymptomatic left ventricular systolic dysfunction Heart disease, unspecified | + + documented in this encounter
--- OUTSIDE RECORDS SUMMARY | ~2019-10-18 | XMS | Encounter Summary ---
Demographics + + + | Address | [address] | | | [place] [address] | + + + | Home Phone | | + + + | Preferred Language | Unknown | + + + | Marital Status | | + + + | Advent Affiliation | NRP | + + + | Race | White | + + + | Ethnic Group | Not or | + + + Author + + + | Author | [facility] | + + + | Organization | [facility] | + + + | Address | Unknown | + + + | Phone | Unavailable | + + + Support + + + + + | Name | Relationship | Address | Phone | + + + + + | Pooja Valdez | ECON | [address] | | | | | [place] | | | | | [address] | | + + + + + Care Team Providers + +------+ + | Care Housing Case Manager Name | Role | Phone | + +------+ + | Rian Sanchez MD | PCP | | + +------+ + Reason for Referral Consultation (Routine) +--------+---------+ + + + + | Status | Reason | Specialty | Diagnoses / | Referred By | Referred To | | | | | Procedures | Contact | Contact | +--------+---------+ + + + + | Closed | Other | Pain | Diagnoses | Wallace | [facility] | | | | Management | Morbid | DANIEL Hernandez | [address] | | | | | obesity with | [address] | | | | | BMI of | [address] | Mailcode: | | | | | 40.0-44.9, | [facility], [place] | [facility] | | | | | adult (HCC) | [address] | for Health | | | | | Insulin | Phone: | and Healing, | | | | | dependent | [phone] | Building [address], | | | | | diabetes | Fax: | 15th Floor | | | | | mellitus | [phone] | [place], [place] | | | | | (HCC) | | [address] | | | | | Essential | | Phone: | | | | | hypertension | | [phone] | | | | | | | Fax: | | | | | Hyperlipidem | | [phone] | | | | | ia, | | | | | | | unspecified | | | | | | | hyperlipidem | | | | | | | ia type JOSE | | | | | | | on CPAP | | | | | | | Procedures | | | | | | | CONSULT TO | | | | | | | PAIN | | | | | | | MANAGEMENT | | | | | | | SC | | | | | | | PSYCHIATRIC | | | | | | | DIAGNOSTIC | | | | | | | EVAL, NO MED | | | | | | | SVCS SC | | | | | | | PSYCH TSTNG | | | | | | | PSYCH/PHYS | | | +--------+---------+ + + + + Reason for Visit + + + | Reason | Comments | + + + | New patient | | | consultation | | + + + Consultation (Routine) +--------+ + + + + + [...] | [facility] | | | with METAL FABRICATION SUPERVISOR | | | | [address] | | | | | | | [address] | | | | | | | Mailcode: | | | | | | | [facility] | | | | | | | Health and | | | | | | | Healing, | | | | | | | [address] | | | | | | | [place], [place] | | | | | | | [address] | | | | | | | Phone: | | | | | | | [phone] | | | | | | | Fax: | | | | | | | [phone] | +--------+ + + + + + Encounter Details +--------+---------+ + + + | Date | Type | Department | Care Team | Description | +--------+---------+ + + + | 07/08/ | Office | Digestive Health | Mary Gonsalez, | Morbid obesity with | | 2017 | Visit | Center at [facility] [address] | [address] | BMI of 40.0-44.9, | | | | [address] | Ave [place], [place] | adult (HCC) (Primary | | | | Mailcode: Center | [address] | Dx); Insulin | | | | for Health and | [phone] | dependent diabetes | | | | [facility] | | mellitus ([facility]); | | | | [place], [place] | | Essential | | | | [address] | | hypertension; | | | | [phone] | | Hyperlipidemia, | | | | | | unspecified | | | | | | hyperlipidemia type; | | | | | | JOSE on CPAP | +--------+---------+ + + + Social History [...] + + + | Blood Pressure | 118/71 | 07/08/2017 12:14 PM | | | | | PDT | | + + + + + | Pulse | 79 | 07/08/2017 12:14 PM | | | | | PDT | | + + + + + | Temperature | 36.7 C (98.1 F) | 07/08/2017 12:14 PM | | | | | PDT | | + + + + + | Respiratory Rate | 14 | 07/08/2017 12:14 PM | | | | | PDT | | + + + + + | Oxygen Saturation | 98% | 07/08/2017 12:14 PM | | | | | PDT | | + + + + + | Inhaled Oxygen | - | - | | | Concentration | | | | + + + + + | Weight | 149.1 kg (328 lb | 07/08/2017 12:14 PM | | | | 12.8 oz) | PDT | | + + + + + | Height | 188 cm (6' 2") | 07/08/2017 12:14 PM | | | | | PDT | | + + + + + | Body Mass Index | 42.22 | 07/08/2017 12:14 PM | | | | | PDT | | + + + + + documented in this encounter Patient Instructions Patient Instructions Mary Gonsalez ACNP - 07/08/2017 12:30 PM PDTImpression: 1. IDDM- on three types DM injections 2. HTN- takes metoprolol 3. JOSE- uses CPAP 4. HLD 5. Hypothyroidism- takes levothyroxine This patient meets and or exceeds NIH criteria for morbid obesity with a BMI of 42.2 and co morbidities related to obesity including Type 2 diabetes, sleep apnea, insulin resistance, h ypertension and hyperlipidemia, which may be improved with bariatric surgery. Records have been reviewed from his PCM and several attempts have been made to lose weight over the past years without success. He qualifies for medically necessary weight loss surgery to control co-morbidities. Mynor Valdez has attended the Public Informational Session in which risks and benefits o f bariatric surgery were discussed. Discussion of realistic expectations of bariatric surge ry was held today. A Bariatric notebook with pre-op, inter-op and post-op guidance and infor mation was provided for the patient today. Plan: The following has been provided to Mynor Valdez This is a preliminary visit for a evaluation for bariatric surgery. There are some patients who have too many illnesses, and this elective surgery would not be safe for them. We have listed some of the potential reasons below. You can over eat ANY of the surgeries. The surgery is a tool with diet and exercise to help you obtain a healthy weight. + Dietitian consultation: 06/23/17. + Physical therapy referral for Bariatric Surgery Prehabilitation: 06/23/17 + Weight Management classes: 2 classes are required in addition to your private appointme nt with the ammonium nitrate crystallizer. These classes will be scheduled apporoximately 1 month apart to allow time for you to put the teaching into action. + Labs needed: Fasting lipids, CBC, CMP, TSH, A1C, PTH, Vitamin D25, Please go to the 3rd floor and have these labs done. + EKG: Please go to 9th floor today to get this done. + Pre-op Psychological Evaluation: If your referral is at [facility], The Pain Management Office will call you in the next week to schedule. + Sleep study:If you currently use CPAP, then contact the provider of your equipment to hel p you download the report of your CPAP use. Our surgeons require that you wear the machine over 4 hours per night, 80% of the time. + Please start taking a daily multivitamin with iron. + Insurance requirements: your insurance requires: lose 5% of weight 6 months prior to surg arlene + Required weight loss: 5% wt loss goal of 16 pounds Once the above list is completed and copies have been received by our office, we will submi t for insurance authorization then schedule with the surgeon. Mary SANCHEZ KILN BURNER HELPER Bariatric Surgery Nurse Practitioner [facility] | [address] | [place], [place] | [address] | Potential Contraindications to Bariatric Surgery Age over 69 BMI over 60 Oxygen dependence Immobility wheelchair or bed bound Cardiac issues such as ischemic heart disease as indicated on cardiac stress test or cardia c catheterization; severe or uncompensated heart failure which may be indicated by a decreas ed ejection fraction. Pulmonary issues such as untreated sleep apnea, obesity hypoventilation syndrome, severe CO PD or asthma. Liver disease such as cirrhosis, esophageal varices, or portal hypertension. Severe, untreated renal disease. Rheumatologic and other diseases requiring immune suppressant medications. Untreated or active cancer. Untreated psychological disability. If you have any of the above conditions, you may not be a candidate for bariatric surgery. Our program will perform a thorough evaluation prior to making such a determination. This evaluation may involve testing or consultations. We will make every effort to notify patien ts who are not candidates for surgery as early in the process as possible, but it is importa nt to realize that the surgeon may make that determination later in the process. Clearance for surgery by your PCP or other providers does not guarantee that the [facility] Bariatric Surger y program will deem you a surgical candidate. documented in this encounter Progress Notes Mary Gonsalez ACNP - 07/08/2017 12:30 PM PDTFormatting of this note might be different fr om the original. BARIATRIC INITIAL VISIT Provider: Mary SANCHEZ KILN BURNER HELPER Referring Provider: Rian Sanchez MD Reason for Requested Consultation: Initial evaluation for bariatric surgery. Mynor Valdez is interested in Brynn en y gastr ic bypass or sleeve gastrectomy. The pt is here by himself, he will have a daughter in [facility] to help with post-op care aft er surgery. History of Present Illness: He is a morbidly obese, 47 y.o. male with a BMI of 42.2, 328 l bs., and 6 foot 2 inches who has failed prior attempts at sustained dietary/medical weight l oss and desires surgical weight loss in order to "do a 5 km run, zip line, be able to ponce 7 year old daughter". Duration of obesity: 36 years. Onset of obesity at age 11 First diet attempts at age 16 Personally initiated diets: 2006 Vegies, & protein, physical labor lost 30 lbs, regained 40 lbs Fit Bit- climbs a lot of stairs at work, does 10,000 steps- no weight loss Programmatic diets: 1999 herbal life, gazelle machine, walking- lost 25 lbs, regained all [id number]- Various diets, Atkins, walking, treadmills, exercise videos, weights, bands, ell iptical- lost 2-5 lbs, gained all back + 2013 Cabbage soup diet- lost 2 lbs, regained 3 lbs 2014 Isagenix (shakes and supplements)- lost 30 lbs, regained all (costly, couldn't afford) Physician Monitored diet: NA Use of Redux or Phen/fen: no Transthoracic ECHO: yes, previous NM perfusion stress test 12/15/10 Advent or cultural reason you would refuse blood products? no Comorbidities include: Type 2 diabetes, sleep apnea, insulin resistance, hypertension and h yperlipidemia All previous chart notes from PCP reviewed, previous tests and labs reviewed. ALLERGIES: Allergies Allergen Reactions Actos [Pioglitazone Hcl] Headache Atorvastatin Unknown Cephalexin Hcl Unknown Metformin Diarrhea Current Outpatient Prescriptions: AUGMENTIN 875 MG-125 MG TAB, take 1 tablet by oral route every 12 hours, Disp: 28, Rfl: 0 buPROPion XL 300 mg oral tablet extended release 24 hr, , Disp: , Rfl: Cyanocobalamin-Cobamamide (B-12 PLUS) 5,000-100 mcg sublingual tablet, sublingual, Place u nder tongue., Disp: , Rfl: DULoxetine 60 mg oral capsule,delayed release(DR/EC), , Disp: , Rfl: FLONASE 50 MCG/ACTUATION NASAL SPRAY AEROSOL, inhale 2 spray in each nostril by nasal route once daily, Disp: 1, Rfl: 11 gabapentin 300 mg oral capsule, , Disp: , Rfl: HUMALOG KWIKPEN 100 unit/mL subcutaneous insulin pen, , Disp: , Rfl: levothyroxine 200 mcg oral tablet, , Disp: , Rfl: metoprolol succinate 200 mg oral tablet extended release 24 hr, , Disp: , Rfl: PREDNISONE 10 MG TAB, take 3 tablets (30mg) by oral route once daily for 4 days, then take 2 tablets (20mg) by oral route once daily for 4 days, then take 1 tablet (10mg) by oral rout e once daily for 4 days, then stop. Start 1 week prior to surgery., Disp: qs, Rfl: 0 TRESIBA FLEXTOUCH U-200 200 unit/mL (3 mL) subcutaneous insulin pen, , Disp: , Rfl: VICTOZA 2-CAITLIN 0.6 mg/0.1 mL (18 mg/3 mL) subcutaneous pen injector, , Disp: , Rfl: History: Past Medical History: Diagnosis Date Anxiety Depression HBP (high blood pressure) Headache High cholesterol Numbness and tingling JOSE on CPAP Thyroid activity decreased Past Surgical History Procedure Laterality Date Ankle fracture surgery 2001 Hand surgery Left 2006 Sinus surgery 2006 Sinus surgery 2013 Social History Social History Marital status: Single Spouse name: N/A Number of children: N/A Years of education: N/A 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 [employer] Social History Main Topics Smoking status: Former Smoker Packs/day: 0.75 Years: 6.00 Smokeless tobacco: Never Used Comment: quit 23 years ago Alcohol use No Drug use: No Sexual activity: Not on file Family History Problem Relation Diabetes Mother Thyroid Mother Obesity Mother Breast Cancer Mother Parkinson's Disease Father Cancer Father High blood pressure Father Obesity Sister Diabetes Sister Diabetes Brother High blood pressure Brother Obesity Brother Cancer Sister Fibromyalgia Sister High blood pressure Sister Obesity Brother Review of Systems: General: No symptoms of fnintentional weight loss, fevers, chills, night sweats. Reports f atigue, weakness, Eyes/Ears/Nose/Throat: No visual changes, sore throat, dental pain, hoarseness, dysphagia, oral or tongue lesions. Respiratory: No shortness of breath, cough or wheezing, daytime drowsiness or morning head aches. No history of asthma.Reports nocturnal snoring, sleep apnea uses CPAP. Cardiovascular: No exertional chest pain, palpitations, syncope, orthopnea, or paroxysmal nocturnal dyspnea. No history of lower extremity edema. No CHF, UT, ischemic heart disease, DVT/PE, or pulmonary hypertension. States able to climb two flights of stairs. Reports HLD, HTN. Neurologic: No neurological impairment or TIAs; diplopia, dysphasia or unilateral disturba nce of motor or sensory function. No loss of balance or vertigo, persistent headaches, or pa resthesias. No history of seizure disorder. Reports legs feel weak when climbing stairs, num bness in feet. Musculoskeletal: No symptoms of joint pain, swelling, myalgias or back pain. Gastrointestinal: No abdominal or flank pain, anorexia, nausea or vomiting, dysphagia, johnson ge in bowel habits, black or bloody stools.No history of ulcers or hernias. Denies persisten t reflux symptoms. No history of liver disease or jaundice. Reports nausea if he doesn't eat in the morning. Genitourinary: No urinary incontinence. No history of kidney stones. No urethral discharge , dysuria, hematuria or sores on the genitals. No lumps or pain in the testicles. No prostat e sx. Skin: No intertrigenous skin infections, recent rashes, sores, or skin changes. Psychological: No anxiety, depression, thoughts of suicide or hallucinations.Reports anxiet y/ depression takes medication Heme/Lymphatic: No history of anemia, abnormal bruising, abnormal bleeding or enlarged lym ph nodes. Metabolic: No hyperthyroidism, history of polyphagia or polydipsia. No history of gout.Repo rts hypothyroidism takes levothyoxine, IDDM takes 3 types of insulin, polyuria. OBJECTIVE BP 118/71 | Pulse 79 | Temp (Src) 36.7 C (98.1 F) (Oral) | RR 14 | Ht 1.88 m (6' 2") | Wt 149.1 kg (328 lb 12.8 oz) | SpO2 98% | BMI 42.22 kg/(m^2) Physical exam: General: Alert and cooperative. Neuro: Oriented x 3. CN III-XII grossly intact. No focal deficits. HEENT: Oropharynx clear without lesion or exudate. Neck: Neck supple. Respiratory: Good diaphragmatic excursion. Lungs clear to auscultation bilaterally. No whee zes, rales or rhonchi, able to speak in full sentences Cardiac: S1, S2, Regular rate and rhythm, no rub, murmur, gallop or bruits. Extremities: No lower extremity edema. Abdomen: Obese, surgical habitus, soft, nontender, no appreciable masses or hernia. Skin: No rashes Psych: Good eye contact. Speech clear. Laboratory Data (limited data): - Vit D low=26.7 12/15/10 FINDINGS:No prior cardiac SPECT studies for comparison. The estimated left ventricul ar ejection fraction is 52%.There is mildly heterogeneous uptake throughout the left naeem tricular myocardium.No significant fixed or reversible defects can be identified.The re are mildly reduced counts within the cardiac apex, probably related to normal variant api adelfo thinning. IMPRESSION: 1.No evidence of ischemia at the level of stress achieved. 2.Estimated LVEF is 52% Impression: 1. IDDM- on three types DM injections 2. HTN- takes metoprolol 3. JOSE- uses CPAP 4. HLD 5. Hypothyroidism- takes levothyroxine This patient meets and or exceeds NIH criteria for morbid obesity with a BMI of 42.2 and co morbidities related to obesity including Type 2 diabetes, sleep apnea, insulin resistance, h ypertension and hyperlipidemia, which may be improved with bariatric surgery. Records have been reviewed from his PCM and several attempts have been made to lose weight over the past years without success. He qualifies for medically necessary weight loss surgery to control co-morbidities. Mynor Valdez has attended the Public Informational Session in which risks and benefits o f bariatric surgery were discussed. Discussion of realistic expectations of bariatric surge ry was held today. A Bariatric notebook with pre-op, inter-op and post-op guidance and infor mation was provided for the patient today. Plan: The following has been provided to Mynor Valdez This is a preliminary visit for a evaluation for bariatric surgery. There are some patients who have too many illnesses, and this elective surgery would not be safe for them. We have listed some of the potential reasons below. You can over eat ANY of the surgeries. The surgery is a tool with diet and exercise to help you obtain a healthy weight. + Dietitian consultation: 06/23/17. + Physical therapy referral for Bariatric Surgery Prehabilitation: 06/23/17 + Weight Management classes: 2 classes are required in addition to your private appointme nt with the ammonium nitrate crystallizer. These classes will be scheduled apporoximately 1 month apart to allow time for you to put the teaching into action. + Labs needed: Fasting lipids, CBC, CMP, TSH, A1C, PTH, Vitamin D25, Please go to the 3rd floor and have these labs done. + EKG: Please go to 9th floor today to get this done. + Pre-op Psychological Evaluation: If your referral is at [facility], The Pain Management Office will call you in the next week to schedule. + Sleep study:If you currently use CPAP, then contact the provider of your equipment to hel p you download the report of your CPAP use. Our surgeons require that you wear the machine over 4 hours per night, 80% of the time. + Please start taking a daily multivitamin with iron. + Insurance requirements: your insurance requires: lose 5% of weight 6 months prior to surg arlene + Required weight loss: 5% wt loss goal of 16 pounds Once the above list is completed and copies have been received by our office, we will submi t for insurance authorization then schedule with the surgeon. Mary Gonsalez DNP ACNP KILN BURNER HELPER Bariatric Surgery Nurse Practitioner [facility] | [address] | [place], [place] | [address] | Potential Contraindications to Bariatric Surgery Age over 69 BMI over 60 Oxygen dependence Immobility wheelchair or bed bound Cardiac issues such as ischemic heart disease as indicated on cardiac stress test or cardia c catheterization; severe or uncompensated heart failure which may be indicated by a decreas ed ejection fraction. Pulmonary issues such as untreated sleep apnea, obesity hypoventilation syndrome, severe CO PD or asthma. Liver disease such as cirrhosis, esophageal varices, or portal hypertension. Severe, untreated renal disease. Rheumatologic and other diseases requiring immune suppressant medications. Untreated or active cancer. Untreated psychological disability. If you have any of the above conditions, you may not be a candidate for bariatric surgery. Our program will perform a thorough evaluation prior to making such a determination. This evaluation may involve testing or consultations. We will make every effort to notify patien ts who are not candidates for surgery as early in the process as possible, but it is importa nt to realize that the surgeon may make that determination later in the process. Clearance for surgery by your PCP or other providers does not guarantee that the [facility] Bariatric Surger y program will deem you a surgical candidate. documented in this e ncounter Plan of Treatment +--------+ + + + + | Date | Type | Specialty | Care Team | Description | +--------+ + + + + | 12/15/ | Office | Pre-operative | [facility] [address] | | | 2019 | Visit | Medicine | [address] | | | | | | [place] [address] | | +--------+ + + + + | 01/04/ | Procedure | Surgery | | | | 2019 | Pass | | | | +--------+ + + + + | 01/25/ | Office | Otolaryngology | Santos Valdivia, | | | 2019 | Visit | | MD Marquita Penn | | | | | | [address] | | | | | | [place], [place] | | | | | | [address] | | | | | | [phone] | | | | | | | | +--------+ + + + + documented as of this encounter Procedures + +--------+ + + + | Procedure Name | Priori | Date/Time | Associated Diagnosis | Comments | | | ty | | | | + +--------+ + + + | 12 LEAD ECG | Routin | 07/08/2017 | Morbid obesity | Results for this | | | e | 1:38 PM | with BMI of | procedure are in the | | | | PDT | 40.0-44.9, adult | results section. | | | | | ([facility]) Insulin | | | | | | [...] + + documented in this encounter Results 12 LEAD ECG (07/08/2017 1:38 PM PDT) + + + + + [...] + + + | ATRIAL RATE | 73 | ms | [facility] | | | | | | OF | | | | | | CARDIOLOGY | | + + + + + + | P-R | 200 | ms | [facility] | | | INTERVAL | | | OF | | | | | | CARDIOLOGY | | + + + + + + | P AXIS | 25 | deg | [facility] | | | | | | OF | | | | | | CARDIOLOGY | | + + + + + + | QRS | 114 | ms | [facility] | | | DURATION | | | OF | | | | | | CARDIOLOGY | | + + + + + + | QT | 408 | ms | [facility] | | | | | | OF | | | | | | CARDIOLOGY | | + + + + + + | QTC-BAZETT | 450 | ms | [facility] | | | | | | OF | | | | | | CARDIOLOGY | | + + + + + + | R AXIS | 32 | deg | [facility] | | | | | | OF | | | | | | CARDIOLOGY | | + + + + + + | T AXIS | -9 | deg | [facility] | | | | | | OF | | | | | | CARDIOLOGY | | + + + + + + | ECG | SINUS RHYTHM | | [facility] | | | IMPRESSION | | | OF | | | | | | CARDIOLOGY | | + + + + + + | ECG | NONSPECIFIC | | [facility] | | | IMPRESSION | INTRAVENTRICULAR | | OF | | | | CONDUCTION DELAY | | CARDIOLOGY | | + + + + + + | ECG | LEFT VENTRICULAR | | [facility] | | | IMPRESSION | HYPERTROPHY- ABNORMAL | | OF | | | | ECG - | | CARDIOLOGY | | + + + + + + | ECG | Electronically signed | | [facility] | | | IMPRESSION | by: NICOL SIERRA | | OF | | | | 07-08-2017 17:05:45 | | CARDIOLOGY | | + + [...] + | [facility] | [address] | [place], [place] | | | CARDIOLOGY | [address] | [address] | | + + + + + [...] [facility] | [address] | [place] [address] | | | SERVICES, CORE | [address] [...] | + + + + + | [facility] | [address] | [place] [address] | | | SERVICES, CORE | [address] [...] | [facility] | | considered for monitoring terminal gauger glycemic control in patients with: | LABORATORY [...] | + + + + + | [facility] | [address] | [place] [address] | | | SERVICES, SPECIAL | [address] | | | | IMM + [...] | | | | | determined by [employer] | | | | | | Laboratories. See | | | | | | Compliance Statement B: | | | | | | [email or web address] | | | | | | by [employer],[address] | | | | | | [facility],[place] | | | | | | [address] | | | | | | [phone]. | | | | | | com, [...] [facility] | [address] | [place], [place] | | | [facility] | | [address] | | + + + + + [...] + | [facility] | [address] | [place] [address] | | | [facility] | | | | | HEALTH + [...] | + + + + + | [facility] | [address] | [place] [address] | | | SERVICES, CORE | [address] [...] | + + + + + | [facility] | [address] | [place] [address] | | | SERVICES, CORE | [address] | | | + + + + + documented in this encounter Visit Diagnoses + + | Diagnosis | + + | Morbid obesity with BMI of 40.0-44.9, adult (HCC) - Primary | + + | Insulin dependent diabetes mellitus ([facility]) Type II or unspecified type diabetes | | mellitus without mention of complication, not stated as uncontrolled | + + | Essential hypertension | + + | Hyperlipidemia, unspecified hyperlipidemia type | + + | JOSE on CPAP Obstructive sleep apnea (adult) (pediatric) | + + documented in this encounter
--- OUTSIDE RECORDS SUMMARY | ~2019-10-18 | XMS | Encounter Summary ---
Demographics + + + | Address | [address] | | | [place] [address] | + + + | Home Phone | | + + + | Preferred Language | Unknown | + + + | Marital Status | | + + + | Presybeterian Affiliation | NRP | + + + | Race | White | + + + | Ethnic Group | Not or | + + + Author + + + | Author | [facility] | + + + | Organization | [facility] | + + + | Address | Unknown | + + + | Phone | Unavailable | + + + Support + + + + + | Name | Relationship | Address | Phone | + + + + + | Pooja Valdez | ECON | [address] | | | | | [place] | | | | | [address] | | + + + + + Care Team Providers + +------+ + | Care Evp Chief Exploration Officer Name | Role | Phone | + +------+ + | Hemalatha Lawrence PA-C | PCP | | + +------+ + Encounter Details +--------+ + + + + | Date | Type | Department | Care Team | Description | +--------+ + + + + | 11/24/ | MyChart | Digestive Health | Mary Gonsalez, | RE: CPA report | | 2018 | Encounter | [facility] [address] | ACNP [address] | | | | | [address] | [place], [place] | | | | | Mailcode: Center | [address] | | | | | for Health and | [phone] | | | | | [facility] [address] | | | | | | [place], [place] | | | | | | [address] | | | | | | [phone] | | | +--------+ + + + [...] 12/15/ | Office | Pre-operative | 2, [facility] [address] | | | 2019 | Visit | Medicine | [address] | | | | | | [place] [address] | | +--------+ + + + + [...] Rd | | | | | | [place], [place] | | | | | | [address] | | | | | | [phone] | | | | | | | | +--------+ + + + + documented as of this encounter Visit Diagnoses Not on filedocumented in this encounter"
--- OUTSIDE RECORDS SUMMARY | ~2019-10-18 | XMS | Encounter Summary ---
Demographics + + + | Address | [address] [facility] | | | [place] [address] | + + + | Home Phone | | + + + | Preferred Language | Unknown | + + + | Marital Status | | + + + | Oriental Orthodox Affiliation | NRP | + + + [...] [place] | | | | | [address] | | + + + + + Care Team Providers + +------+ + | Care Assembler Installer Structures Name | Role | Phone | + +------+ + | Hemalatha Lawrence PA-C | PCP | | + +------+ + Encounter Details +--------+ + + + + | Date | Type | Department | Care Team | Description | +--------+ + + + + | 12/01/ | MyChart | Digestive Health | Mary Gonsalez, | homework | | 2018 | Encounter | [facility] [address] | ACNP [address] | | | | | [address] | [place] [facility] [place] | | | | | Mailcode: Center | [address] | | | | | for Health and | [phone] | | | | | Healing, [address] | | | | | | [place], [place] | | | | | | [address] | | | | | | [phone] | | | +--------+ + + + [...] Rd | | | | | | [place] [address] | | +--------+ + + + + [...] [place] | | | | | | [address] | | | | | | [phone] | | | | | | | | +--------+ + + + + documented as of this encounter Visit Diagnoses Not on filedocumented in this encounter"
--- OUTSIDE RECORDS SUMMARY | ~2019-10-18 | XMS | Encounter Summary ---
Demographics + + + | Address | [address] | | | [place] [address] | + + + | Home Phone | | + + + | Preferred Language | Unknown | + + + | Marital Status | | + + + | Tenriism Affiliation | NRP | + + + | Race | White | + + + | Ethnic Group | Not or | + + + Author + + + | Author | [facility] | + + + | Organization | [facility] | + + + | Address | Unknown | + + + | Phone | Unavailable | + + + Support + + + + + | Name | Relationship | Address | Phone | + + + + + | Pooja Valdez | ECON | [address] | | | | | [place] | | | | | [address] | | + + + + + Care Team Providers + +------+ + | Care Lead Embedded Software Engineer Name | Role | Phone | + [...] | | | [address] | [facility] [place] | (patient was in a | | | | Mailcode: OP01 | [address] | couple of weeks ago | | | | [facility] | [phone] | and was given rx for | | | | [facility] [place] | | Flonase; pt states | | | | [address] | | that he's had | | | | [phone] | | epistaxis since | | | [...] Office | Pre-operative | 2, Andrés Chambers [address] | | | 2020 | Visit | Medicine | [address] | | | | | | [place] [address] | | +--------+ + + + + [...] | | | | | | [place], [place] | | | | | | [address] | | | | | | [phone] | | | | | | | | +--------+ + + + + documented as of this encounter Visit Diagnoses Not on filedocumented in this encounter"
--- OUTSIDE RECORDS SUMMARY | ~2019-10-18 | XMS | Encounter Summary ---
Demographics + + + | Address | [address] | | | [place] [address] | + + + | Home Phone | | + + + | Preferred Language | Unknown | + + + | Marital Status | | + + + | Jew Affiliation | NRP | + + + [...] [place] | | | | | [address] | | + + + + + Care Team Providers + +------+ + | Care Medical Physicist Name | Role | Phone | + +------+ + | Hemalatha Lawrence PA-C | PCP | | + +------+ + Encounter Details +--------+ + + + + | Date | Type | Department | Care Team | Description | +--------+ + + + + | 01/19/ | Pharmacy | Specialty Pharmacy | | | | 2017 | Visit | Services [address] | | | | | | [address] | | | | | | [place], [place] | | | | | | [address] | | | | | | [phone] | | | +--------+ + + + [...] Office | Pre-operative | 2, [facility] [address] | | | 2019 | Visit | Medicine | [address] | | | | | | [place] [address] | | +--------+ + + + + [...] [place] | | | | | | [address] | | | | | | [phone] | | | | | | | | +--------+ + + + + documented as of this encounter Visit Diagnoses Not on filedocumented in this encounter"
--- OUTSIDE RECORDS SUMMARY | ~2019-10-18 | XMS | Encounter Summary ---
Demographics + + + | Address | [address] | | | [place] [address] | + + + | Home Phone | | + + + | Preferred Language | Unknown | + + + | Marital Status | | + + + | Sabianism Affiliation | NRP | + + + | Race | White | + + + | Ethnic Group | Not or | + + + Author + + + | Author | [facility] | + + + | Organization | [facility] | + + + | Address | Unknown | + + + | Phone | Unavailable | + + + Support + + + + + | Name | Relationship | Address | Phone | + + + + + | Pooja Valdez | ECON | [address] | | | | | [place] | | | | | [address] | | + + + + + Care Team Providers + +------+ + | Care Fiberglass Grinder Name | Role | Phone | + +------+ + | Hemalatha Lawrence PA-C | PCP | | + +------+ + Encounter Details +--------+ + + + + | Date | Type | Department | Care Team | Description | +--------+ + + + + | 01/27/ | MyChart | Digestive Health | Kaylee Purcell, | Questions | | 2018 | Encounter | [facility] [address] | AGACNP [address] | | | | | [address] | [place], [place] | | | | | Mailcode: Center | [address] | | | | | for Health and | [phone] | | | | | Healing, [address] | | | | | | [place], [place] | | | | | | [address] | | | | | | [phone] | | | +--------+ + + + [...] 12/15/ | Office | Pre-operative | 2, [facility] [address] | | | 2020 | Visit | Medicine | [address] | | | | | | [place] [address] | | +--------+ + + + + | 01/04/ | Procedure | Surgery | | | | 2019 | Pass | | | | +--------+ + + + + | 01/25/ | Office | Otolaryngology | Santos Valdivia, | | | 2019 | Visit | | [address] [facility] | | | | | | [address] | | | | | | [facility] [place] | | | | | | [address] | | | | | | [phone] | | | | | | | | +--------+ + + + + documented as of this encounter Visit Diagnoses Not on filedocumented in this encounter"
--- OUTSIDE RECORDS SUMMARY | ~2019-10-18 | XMS | Encounter Summary ---
Demographics + + + | Address | [address] [facility] [facility] | | | [place] [address] | + + + | Home Phone [...] [place] | | | | | [address] | | + + + + + Care Team Providers + +------+ + | Care Mat Linker Name | Role | Phone | + +------+ + | Hemalatha Lawrence PA-C | PCP | | + +------+ + Reason for Visit +--------+ + | Reason | Comments | +--------+ + | Other | Echo Prior Auth | +--------+ + Encounter Details +--------+ + + + + | Date | Type | Department | Care Team | Description | +--------+ + + + + | 09/09/ | Telephone | Cardiology | Poly Joseph | Other (Echo Prior | | 2017 | | [facility]ive at [facility] | CHADWICK Amaro [address] | Auth) | | | | [address] | [address] [place], | | | | | Mailcode: [address]A | [place] [address] | | | | | [facility] | [phone] | | | | | and Healing, | | | | | | [address] | | | | | | [place], [place] | | | | | | [address] | | | | | | [phone] | | | +--------+ + + + [...] 12/15/ | Office | Pre-operative | 2, [facility] [address] | | | 2020 | Visit | Medicine | [address] | | | | | | [place] [address] | | +--------+ + + + + [...] | | | | | | [place] | | | | | | [address] | | | | | | [phone] | | | | | | | | +--------+ + + + + documented as of this encounter Visit Diagnoses Not on filedocumented in this encounter"
--- OUTSIDE RECORDS SUMMARY | ~2019-10-18 | XMS | Encounter Summary ---
Demographics + + + | Address | [address] | | | [place] [address] | + + + | Home Phone | | + + + | Preferred Language | Unknown | + + + | Marital Status | | + + + | Yarsani Affiliation | NRP | + + + [...] [place] | | | | | [address] | | + + + + + Care Team Providers + +------+ + | Care Dimmer Board Operator Name | Role | Phone | + [...] Description | +--------+---------+ + + + | 01/17/ | Surgery | [address] | Arvin Lerner, | LAPAROSCOPIC BARBY EN | | 2017 | | [address] | [address] | Y GASTRIC BYPASS | | | | Rd [facility] | [place], [place] | | | | | Hospital Admitting | [address] | | | | | Desk Located on the | [phone] | | | | | 9th floor | | | | | | [place], [place] | | | | | | [address] | | | +--------+---------+ + + + [...] Greenberg ACNP - 01/19/2018 9:28 AM PDT [facility] RED SURGERY INPATIENT DISCHARGE SUMMARY Author: [...] istently higher than 200 to call his [facility] provider/licensed life and health agent to discuss adjust ment. 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 He should make a fol low up in 1 week with his PCP/licensed life and health agent to discuss further diabetes management. Additionally, his [...] mg Cpdr Commonly known as: CYMBALTA iron gly,dyq-[id number]-ca-diqjnvkq 150 mg iron-200 mg-250 mcg Tab L-METHYLFOLATE [...] yogurt or kefir. Pinky's Yogurt or Kefir, [place]oneyfield Yogurt, and Chioban i Israeli Yogurt are common brands with beneficial probiotics. [...] are available over the counter at most [facility] [employer] stores. Nausea/Vomiting/Difficulty Swallowing Nausea/Vomiting/Difficulty swallowing: Could be from [...] hours per your instructions. Some medications, like [place], have Tylenol in it. Make sure you [...] (PCP) as this clinic does not provide [facility] services. When to Call [...] hours by calling the surgery office at [phone]. - After hours, weekends and holidays, you may call the hospital cinder dump crane operator at [phone] an d have the service correspondent Red Surgery Team paged. Destination Home Condition [...] Phone Center 01/25/2018 8:30 AM Celestina Madrigal [facility] 6th Floor [phone] F OOD AND NUT 01/25/2018 10:20 AM [facility] 6th Floor [phone] D ig Health 02/25/2018 11:00 AM Arvin Lerner [facility] 6th Floor [phone] Di g Health 02/25/2018 1:00 PM Keykwame Castellano [facility] 6th Floor [phone] FO OD AND NUT 04/15/2018 10:50 AM Tonia Greenberg [facility] 6th Floor [phone] Dig Hea lt 04/15/2018 11:30 AM Angie Hernandez [facility] 6th Floor [phone] FOOD AND NUT 04/19/2018 2:50 PM Rian Sabillon [facility] at [facility] 15th Floor [phone] Comprehensiv Discharging Physician: DANIEL Mclean Attending Physician: Arvin Lerner MD [facility] Red Surgery Pager# [phone] 9:28 AM 01/19/2018 documented in this enco [...] | | 0 | | | | gly,[id number]-[id number]-oav | mouth once daily. | | | [...] MD Resident Physician, PGY-1 Red Surgery pgr [id number] Associated attestation - Arvin Lerner MD - [...] | 12/15/ | Office | Pre-operative | Andrés Granados Md | | | 2019 | Visit | Medicine | [address] | | | | | | [place] [address] | | +--------+ + + + + [...] Rd | | | | | | [place], [place] | | | | | | [address] | | | | | | [phone] | | | | | | | [...] PEÑA | [address] | [place], [place] | | | JESSU MANUEL HANLEY OF LYNN | [facility] | [address] | | | TESTS | | | [...] Procedure Note | + + | Service Vick, [place]iant Res In Interface - 01/19/2018 9:00 [...] [facility] | [address] | [place] [address] | | | SERVICES, CORE | PARK [...] [facility] | [address] | [place] [address] | | | SERVICES, CORE | PARK [...] | | | LABORATORY | | | [facility] | | | SERVICES, | | | [...] | Adult glucose reference range change effective 7-12-17. GFR is | [facility] | | estimated using the MDRD equation recommended by the National Kidney | LABORATORY | | Disease Education Program. Estimated GFR Interpretive Information: | FILI, CORE | | <60 mL/min/1.73 sq m Chronic [...] | + + + + + | [facility] | [address] | [place] [address] | | | FILI, [facility] | [address] | | | + [...] + + + + + + | AZEEM | [address] | [place] | [facility] [...] DEPT OF | [address] | [place], [place] | | | CARDIOLOGY | [address] | [address] | | + + + + + [...] PEÑA | [address] | [place], [place] | | | JESUS MANUEL HANLEY OF L[facility]NN | [facility] | [address] | | | TESTS | | | [...] | | | POC | | | [place] | | | | | | OF CARE | | | | | | TESTS | | + +---------+ + + + + + | Specimen | + + | | + + + + + + + | Performing | Address | City/State/Zipcode | Phone Number | | Organization | | | | + + + + + | [facility] | [address] | [place], [place] | | | JESUS MANUEL HANLEY OF CARE | [facility] | [address] | | | TESTS | | | [...] (H) | 70 - 99 mg/dL | [facility] - | | | GLUCOSE, | | [...] + + + + | [facility] | [address] | [place], [place] | | | [place] POINT OF CARE | [address] | [address] | | | TESTS | | | [...] PEÑA | [address] | [place], [place] | | | JESUS MANUEL HANLEY OF [place]NN | [facility] | [address] | | | TESTS | | | [...] surgical contact: | | | Red surgery planning intern | | + + + CAPILLARY BLOOD [...] | | | POC | | | [place] | | | | | | OF [...] [facility] | [address] | [place], [place] | | | JESUS MANUEL HANLEY OF CARE | [facility] | [address] | | | TESTS | | | [...] (H) | 70 - 99 mg/dL | [facility] - | | | GLUCOSE, | | [...] + + + + | [facility] | [address] | [place], [place] | | | JESUS MANUEL HANLEY OF [facility] | [address] | [address] | | | TESTS | | | [...] (H) | 70 - 99 mg/dL | [facility] - | | | GLUCOSE, | | [...] PEÑA | [address] | [place], [place] | | | MART HANLEY | [facility] | [address] | | | TESTS | | | | + + + + + DIAGNOSTIC UPPER GASTROINTESTINAL ENDOSCOPY (01/17/2018 12:29 PM PDT) + + + | Narrative | Performed At | + + + | Arvin Lerner MD 01/17/2018 12:31 PM Date of Procedure: | | | 01/17/18 Primary Surgeon: Arvin Lerner MD Co Surgeon or | | | assistant superintendent for curriculum: Amara Downing MD, R6 Preoperative Diagnosis: Morbid [...] limb and a | | | 60mm Sunbright stapler with white load was fired to create a | | | ngst-qj-blxw jejunojejunostomy. The anastamosis was confirmed to | | | be widely patent and hemostatic. The common enterotomy was closed | | | by placed 3 stay sutures along the enterotomy for retraction and | | | firing an Sunbright 60mm stapler with white load across the [...] tucked posterior to the | | | braby limb. A Nathansen liver retractor was placed [...] was | | | entered. The 60mm Sunbright stapler with blue load was placed and | | | fired transversely to start gastric pouch formation. The Sunbright | | | was then fired longitudinally towards the angle of His. Dissection | | | was performed retrogastric to connect posterior and anterior | | | dissection planes and ensure adequate fundus exclusion. Additional | | | fires of the Sunbright stapler were performed with blue loads to [...] | | enterotomy was closed with 60mm Sunbright stapler with a white load. | | [...] | | | Arvin Lerner MD, FACS, [facility] Bariatric Surgery | | + + + LAPAROSCOPIC GASTRIC BYPASS AND BARBY-EN-Y GASTROENTEROSTOMY WITH BARBY LIMB 150 CM OR LESS ( 01/17/2018 12:29 PM PDT) + + + | Narrative | Performed At | + + + | Arvin Lerner MD 01/17/2018 12:31 PM Date of Procedure: | | | 01/17/18 Primary Surgeon: Arvin Lerner MD Co Surgeon or | | | assistant superintendent for curriculum: Amara Downing MD, R6 Preoperative Diagnosis: Morbid [...] limb and a | | | 60mm Sunbright stapler with white load was fired to create a | | | flzf-xq-czoy jejunojejunostomy. The anastamosis was confirmed to | | | be widely patent and hemostatic. The common enterotomy was closed | | | by placed 3 stay sutures along the enterotomy for retraction and | | | firing an Sunbright 60mm stapler with white load across the [...] was | | | entered. The 60mm Sunbright stapler with blue load was placed and | | | fired transversely to start gastric pouch formation. The Sunbright | | | was then fired longitudinally towards the angle of His. Dissection | | | was performed retrogastric to connect posterior and anterior | | | dissection planes and ensure adequate fundus exclusion. Additional | | | fires of the Sunbright stapler were performed with blue loads to [...] | | enterotomy was closed with 60mm Sunbright stapler with a white load. | | [...] | | | Arvin Lerner MD, FACS, [facility] Bariatric Surgery | | + + + [...] | | | POC | | | [place] | | | | | | OF CARE | | | | | | TESTS | | + +---------+ + + + + + | Specimen | + + | | + + + + + + + | Performing | Address | City/State/Zipcode | Phone Number | | Organization | | | | + + + + + | [facility] | [address] | [place], [place] | | | JESUS MANUEL HANLEY OF CARE | [facility] | [address] | | | TESTS | | | [...] (H) | 70 - 99 mg/dL | [facility] - | | | GLUCOSE, | | [...] + + + + | [facility] | [address] | [place], [place] | | | [place] POINT OF CARE | [address] | [address] | | | TESTS | | | [...] + + + + | [facility] | [address] | [place], [place] | | | JESUS MANUEL HANLEY OF L[facility]NN | [facility] | [address] | | | TESTS | | | [...] Diagnosis | + + | Morbid obesity (HCC) Morbid obesity | + + documented in this encounter [...] +--------+ +--------+------+------+ +-------+ +--------+---+---+ | Given | 01/19/20 | 650 mg | | | | | 18 3:26 | | | | | | PM PDT | | | | +-------+ +--------+---+---+ +---+---+ | | | +---+---+ + +-------+ +-------+---+ + | bupivacaine | Given | 01/18/20 | 40 mL | | Surgical | | (MARCAINE,SENSORCAINE) 0.25 % | | 18 11:00 | | | Site | | (2.5 mg/mL) injection | | AM PDT | | | | | INTRAPROCEDURE PRN, Starting Mon | | | | | | | 01/17/18 at 0920, Until Mon | | | | | | | 01/17/18 at 1127 | | | | | | + +-------+ +-------+---+ + +-------+ +-------+---+ + | Given | 01/18/20 | 10 mL | | Surgical | | | 18 9:20 | | | Site | | | AM PDT | | | | +-------+ +-------+---+ + +---+---+ | | | +---+---+ + +-------+ +--------+---+---+ | buPROPion (WELLBUTRIN) tablet | Given | 01/20/20 | 150 mg | | | | 150 mg 150 mg, oral, TWICE | | 18 8:54 | | | | | DAILY, First dose on 01/17/18 | | AM PDT | | | [...] | | | | | modification) on 01/17/18 at | | | | | [...] +---+---+ | | | +---+---+ + +-------+ +---------+---+--------+ | insulin lispro (HUMALOG) | Given | 01/20/20 | 2 Units | | Right | | injection subcutaneous, FOUR | | 18 8:55 | | | Arm | | TIMES DAILY, First dose on Wed | | AM PDT | | | [...] + +---+---+ | | | +---+---+ + +-------+ +---------+---+---+ | levothyroxine tablet 200 mcg | Given | 01/20/20 | 200 mcg | | | | 200 mcg, oral, DAILY, First dose | | 18 7:10 | | | | | on Wed01/18/18 at 0900, Until | | AM PDT [...] +------+---+---+ +---+---+ | | | +---+---+ + + [...] 01/17/18 at | | | 1631, Until Wed01/19/18 at 1826, | | | nausea/vomiting, second line | | + +---+ | | | + +---+ + +-------+ +-------+---+---+ | simethicone chew (MYLICON) [...] | | | dose on 01/17/18 at 2045, | | AM PDT | [...]
--- OUTSIDE RECORDS SUMMARY | ~2019-10-18 | XMS | Encounter Summary ---
Demographics + + + | Address | [address] | | | [place] [address] | + + + | Home Phone [...] + + + | Author | [facility] | + + + | Organization | [facility] | + + + | Address | Unknown | + + + | Phone | Unavailable | + + + Support + + + + + | Name | Relationship | Address | Phone | + + + + + | Pooja Valdez | ECON | [address] | | | | | [place] | | | | | [address] | | + + + + + Care Team Providers + +------+ + | Care Sheet Metal Worker Supervisor Name | Role | Phone | + [...] + + + + | 01/17/ | Anesthesia | 6A Intra Op 3181 | Bonny Souza MD | | | 2018 | Event | [address] [facility] | [address] | | | | | [facility] | [facility] | | | | | Hospital Admitting | [place], [place] | | | | | Desk Located on the | [address] | | | | | 9th floor | [phone] | | | | | [place], [place] | | | | | | [address] | Jason Jordan MD | | | | | | [address] | | | | | | [facility] | | | | | | [place], [place] | | | | | | [address] | | | | | | [phone] | | | | | | | | +--------+ + + + + Anesthesia Record + + + + + | Procedure Name | Responsible | Anesthesia Start | Anesthesia Stop Time | | | Anesthesiologist | Time | | + + + + + | LAPAROSCOPIC BARBY EN | Bonny Souza MD | 01/17/18 0825 | 01/17/18 1134 | | Y GASTRIC BYPASS | | | | | (N/A Abdomen) | | | | + + + + + +----+---+ + + | Da | T | Event | Comment | | te | i | | | | | m | | | | | e | | | +----+---+ + + | 03 | 0 | Eq Check | Anesthesia machine checked Equipment verified | | /1 | 6 | | | | 2/ | 1 | | | | 20 | 8 | | | | 18 | | | | +----+---+ + + | | 0 | | | | | 7 | | | | | 5 | | | | | 8 | | | +----+---+ + + | | 0 | Pt. Check | Prior to anesthesia start, pt. Identified, examined, chart | | | 7 | | reviewed, NORIS held, anesthetic plan made or approved by | | | 5 | | attending anesthesiologist. NPO status confirmed as appropriate | | | 8 | | for procedure Preoperative evaluation: unchanged | +----+---+ + + | | 0 | An Start | | | | 8 | | | | | 2 | | | | | 5 | | | +----+---+ + + | | 0 | An Start | | | | 8 | Data | | | | 2 | | | | | 8 | | | +----+---+ + + | | 0 | Vitals | Monitors applied Vital signs checked Patient ready for anesthesia | | | 8 | Checked | | | | 3 | | | | | 0 | | | +----+---+ + + | | 0 | ETT | | | | 8 | | | | | 4 | | | | | 4 | | | +----+---+ + + | | 0 | Ready | | | | 8 | | | | | 4 | | | | | 8 | | | +----+---+ + + | | 0 | Abx | | | | 8 | Administere | | | | 5 | d | | | | 1 | | | +----+---+ + + | | 0 | Incision | | | | 9 | | | | | 0 | | | | | 8 | | | +----+---+ + + | | 0 | Timeout | | | | 9 | | | | | 0 | | | | | 8 | | | +----+---+ + + | | 0 | Quick Note | Steeper reverse trend. | | | 9 | | | | | 5 | | | | | 1 | | | +----+---+ + + | | 0 | Quick Note | Desufflate, level out bed | | | 9 | | | | | 5 | | | | | 6 | | | +----+---+ + + | | 1 | Quick Note | insufflate | | | 0 | | | | | 0 | | | | | 0 | | | +----+---+ + + | | 1 | Quick Note | Attempting to pass special ogt per surgeon instruction. Unable to | | | 0 | | get in correct position-kept coiling. Dr Miramontes using endoscope | | | 1 | | to place | | | 7 | | | +----+---+ + + | | 1 | Quick Note | OGT advanced with guidance of surgeon and jawlift. Metal portion | | | 0 | | seen to clear teeth without damage. Safety suture maintained | | | 3 | | outside of patient mouth | | | 2 | | | +----+---+ + + | | 1 | Quick Note | Safety suture removed | | | 0 | | | | | 4 | | | | | 6 | | | +----+---+ + + | | 1 | Local | | | | 0 | Anesthetic | | | | 5 | by Surgeon | | | | 9 | | | +----+---+ + + | | 1 | Quick Note | Surgeon performing endoscopy | | | 1 | | | | | 0 | | | | | 1 | | | +----+---+ + + | | 1 | Quick Note | Nasal trumpet placed atraumatically. Temp probe dc'd at this time | | | 1 | | | | | 0 | | | | | 8 | | | +----+---+ + + | | 1 | Surgery end | | | | 1 | | | | | 1 | | | | | 7 | | | +----+---+ + + | | 1 | An Extubate | Neuromuscular function Intact. Pharynx suctioned. Patient obeys | | | 1 | | commands. Adequate pulmonary mechanics. | | | 1 | | | | | 9 | | | +----+---+ + + | | 1 | an stop | | | | 1 | data | | | | 2 | | | | | 2 | | | +----+---+ + + | | 1 | Anesthesia | | | | 1 | End | | | | 3 | | | | | 4 | | | +----+---+ + + | | 1 | PACU Rpt | | | | 1 | Given | | | | 3 | | | | | 5 | | | +----+---+ + + +------+ | Meds | +------+ + + + | Name | Total | + + + | fentaNYL | 150 mcg | + + + | lidocaine 2% | 100 mg | + + + | propofol | 240 mg | + + + | rocuronium | 70 mg | + + + | PHENYLephrine | 2,100 mcg | + + + | ePHEDrine | 50 mg | + + + | ondansetron | 4 mg | + + + | neostigmine | 4 mg | + + + | acetaminophen PO | 1,000 mg | + + + | gabapentin | 600 mg | + + + | ciprofloxacin (CIPRO) IV 400 mg | 400 mg | | in D5W (RTU) | | + + + | dexamethasone | 4 mg | + + + | glycopyrrolate | 1.1 mg | + + + | vasopressin | 1 Units | + + + | metoclopramide | 10 mg | + + + | ketorolac | 30 mg | + + + | LR | 3,400 mL | + + + + + | Name | + + | O2 FR Avance (Total Liters) | + + | Air FR Avance (l/min) | + + | Insp Ashwin | + + | Et Ashwin | + + | Insp Sevo | + + | Et Sevo | + + | Insp N2O % | + + + + | No blood administrations on file. | + + +--------+ + + + | Type | Details | Placement | Removal | +--------+ + + + | Wound | 01/17/18613; Yes; Right; 1st | 01/17/18613 by | | | | toe; Other (Comment) | Roxanne Fallon RN | | +--------+ + + + | Incisi | 01/17/18; 907; MD Maxime; | 01/17/18907 by | | | on | umbilical area | Sonido Flynn RN | | +--------+ + + + | Incisi | 01/17/18; 909; MD Maxime; Right; | 01/17/18909 by | | | on | abdomen | Sonido Flynn RN | | +--------+ + + + | Incisi | 01/17/18; 914; MD Maxime; Left; | 01/17/18914 by | | | on | Medial; abdomen | Sonido Flynn RN | | +--------+ + + + | Incisi | 01/17/18; 919; MD Maxime; Left; | 01/17/18919 by | | | on | Lateral; abdomen | Sonido Flynn RN | | +--------+ + + + | Incisi | 01/17/18; 944; MD Maxime; | 01/17/18944 by | | | on | Midline, Upper; abdomen | Sonido Flynn RN | | +--------+ + + + | Periph | Libia Landis MS-2; Right; Hand; 20 | 01/17/18 0858 by | 01/19/18 1059 by | | lucy | g; 01/19/18; 1059 | | Zamzam Gillespie, | | IV | | | RN | +--------+ + + + | Periph | 01/17/18; 0642; Left; Hand; 20 g; | 01/17/18 0642 by | 01/19/18 1059 by | | eral | Positive; 01/19/18; 1059 | Roxanne Fallon RN | Zamzam Gillespie, | | IV | | | RN | +--------+ + + + documented in this encounter Social History + +-------+ +--------+ + | [...] | 12/15/ | Office | Pre-operative | [address] | | | 2019 | Visit | Medicine | [address] | | | | | | [place] [address] | | +--------+ + + + + [...] Rd | | | | | | [place] | | | | | | [address] | | | | | | [phone] | | | | | | | | +--------+ + + + + documented as of this encounter Procedures + +--------+ + + + | Procedure Name | Priori | Date/Time | Associated Diagnosis | Comments | | | ty | | | | + +--------+ + + + | GAVINO ETT | Routin | 01/17/2018 | | Results for this | | | e | 3:59 PM | | procedure are in the | | | | PDT | | results section. | + +--------+ + + + documented in this encounter Results GAVINO ETT (01/17/2018 3:59 PM PDT) + + + | Narrative | Performed At | + + + | Jason Jordan MD 01/17/2018 9:25 AM Procedure Reason | | | for Intubation: For surgical procedure, Location Performed: [place] , | | | Patient was preoxygenated Mask Ventilation Grade 2 - Ventilated by | | | mask with oral airway/adjuvant Intubation Atraumatic | | | laryngoscopy: Atraumatic Laryngoscopy, Intubation adjuncts: Stylet | | | used and Ramp , Laryngoscopic view: Grade I, Fiberoptics used: CMAC | | | , Number of Attempts: 2, Positive for EtCO2: Yes, Breath sounds: | | | Bilateral and equal Prior intubation attempts: Blade type: | | | Lui , Blade size: 3, Atraumatic Laryngoscopy: second | | | Atraumatic Laryngoscopy, Intubation adjuncts: Stylet used, , | | | Laryngoscopic view: Grade III, ETT Ett Adult: Single-lumen cuffed | | | ETT Size: 7.5 ETT secured with: adhesive tape Depth at Lip: | | | 22 Cm Narrative Attending physically present Performed by | | | Resident Patient preoxygenated using bariatric ramp, blackstrap to | | | hold mask in place, and ~5cm H20 CPAP until EtO2 ~80. Smooth IV | | | induction. BMV with OA, two hand technique.Very small mouth | | | opening. Initial attempt with CMAC3 - blade not long enough to sweep | | | tongue so attempted to use video screen. Grade III view. Second | | | attempt with CMAC D blade - Grade I view - large arytenoids - | | | unable to pass tube because would not go anterior enough despite | | | some external pressure. Attempted to pass bougie but again could not | | | get anterior enough. Attempt 3 by attending with D-blade a little | | | less deep, facilitating dropping down of laryngeal structure. Tube | | | visualized passing through cords. No damage to teeth, lips, tongue. | | | Soft bite block placed. Pt mask ventilated between attempts. Never | | | desaturated | | + + + documented in this encounter Visit Diagnoses Not on filedocumented in this encounter Administered Medications + +--------+ + +------+------+ | Medication Order | MAR | Action | Dose | Rate | Site | | | Action | Date | | | | + +--------+ + +------+------+ | acetaminophen (TYLENOL) tablet | Given | 01/18/20 | 1,000 mg | | | | INTRAPROCEDURE PRN, Starting Mon | | 18 8:18 | | | | | 01/17/18 at 0818, Until Mon | | AM PDT | | | | | 01/17/18 at 1122 | | | | | | + +--------+ + +------+------+ +---+---+ | | | +---+---+ + +-------+ +--------+---+---+ | ciprofloxacin (CIPRO) IV 400 | Given | 01/18/20 | 400 mg | | | | mg in D5W (RTU) 400 mg, | | 18 8:51 | | | | | intravenous, PREPROCEDURE ONCE, 1 | | AM PDT | | | | | dose, Starting Wed01/17/18 at | | | | | | | 0526, Until Wed01/17/18 at 0851 | | | | | | + +-------+ +--------+---+---+ +---+---+ | | | +---+---+ + +-------+ +------+---+---+ | dexamethasone (DECADRON) | Given | 01/18/20 | 4 mg | | | | injection INTRAPROCEDURE PRN, | | 18 9:02 | | | | | Starting Wed01/17/18 at 0902, | | AM PDT | | | | | Until Wed01/17/18 at 1122 | | | | | | + +-------+ +------+---+---+ +---+---+ | | | +---+---+ + +-------+ +-------+---+---+ | ePHEDrine injection | Given | 01/18/20 | 10 mg | | | | intravenous, INTRAPROCEDURE PRN, | | 18 9:52 | | | | | Starting Wed01/17/18 at 0908, | | AM PDT | | | | | Until Wed01/17/18 at 1122 | | | | | | + +-------+ +-------+---+---+ +-------+ +-------+---+---+ | Given | 01/18/20 | 5 mg | | | | | 18 9:28 | | | | | | AM PDT | | | | +-------+ +-------+---+---+ | Given | 01/18/20 | 10 mg | | | | | 18 9:16 | | | | | | AM PDT | | | | +-------+ +-------+---+---+ +---+---+ | | | +---+---+ + +-------+ +--------+---+---+ | fentaNYL citrate (PF) | Given | 01/18/20 | 50 mcg | | | | (SUBLIMAZE) injection | | 18 9:36 | | | | | intravenous, INTRAPROCEDURE PRN, | | AM PDT | | | | | Starting 01/17/18 at 0844, | | | | | | | Until 01/17/18 at 1122 | | | | | | + +-------+ +--------+---+---+ +-------+ +---------+---+---+ | Given | 01/18/20 | 100 mcg | | | | | 18 8:44 | | | | | | AM PDT | | | | +-------+ +---------+---+---+ +---+---+ | | | +---+---+ + +-------+ +--------+---+---+ | gabapentin (NEURONTIN) capsule | Given | 01/18/20 | 600 mg | | | | INTRAPROCEDURE PRN, Starting Mon | | 18 8:18 | | | | | 01/17/18 at 0818, Until Mon | | AM PDT | | | | | 01/17/18 at 1122 | | | | | | + +-------+ +--------+---+---+ +---+---+ | | | +---+---+ + +-------+ +--------+---+---+ | glycopyrrolate (DALLAS) | Given | 01/18/20 | 0.3 mg | | | | injection INTRAPROCEDURE PRN, | | 18 11:06 | | | | | Starting Wed01/17/18 at 0952, | | AM PDT | | | | | Until Wed01/17/18 at 1122 | | | | | | + +-------+ +--------+---+---+ +-------+ +--------+---+---+ | Given | 01/18/20 | 0.6 mg | | | | | 18 11:01 | | | | | | AM PDT | | | | +-------+ +--------+---+---+ | Given | 01/18/20 | 0.2 mg | | | | | 18 9:52 | | | | | | AM PDT | | | | +-------+ +--------+---+---+ +---+---+ | | | +---+---+ + +-------+ +-------+---+---+ | ketorolac (TORADOL) injection | Given | 01/18/20 | 30 mg | | | | INTRAPROCEDURE PRN, Starting Mon | | 18 10:59 | | | | | 01/17/18 at 1059, Until Mon | | AM PDT | | | | | 01/17/18 at 1122 | | | | | | + +-------+ +-------+---+---+ +---+---+ | | | +---+---+ + + + +---+---+---+ | lactated Ringers IV | given by | 01/18/20 | | | | | intravenous, INTRAPROCEDURE | | 18 11:11 | | | | | CONTINUOUS PRN, Starting Mon | anesthes | AM PDT | | | | | 01/17/18 at 0830, Until Mon | iology | | | | | | 01/17/18 at 1122 | | | | | | + + + +---+---+---+ + + +---+---+---+ | given by anesthesiology | 01/18/20 | | | | | | 18 10:52 | | | | | | AM PDT | | | | + + +---+---+---+ | given by anesthesiology | 01/18/20 | | | | | | 18 10:32 | | | | | | AM PDT | | | | + + +---+---+---+ +---+---+ | | | +---+---+ + +-------+ +--------+---+---+ | lidocaine PF (XYLOCAINE MPF) 20 | Given | 01/18/20 | 100 mg | | | | mg/mL (2 %) injection | | 18 8:44 | | | | | INTRAPROCEDURE PRN, Starting Mon | | AM PDT | | | | | 01/17/18 at 0844, Until Mon | | | | | | | 01/17/18 at 1122 | | | | | | + +-------+ +--------+---+---+ +---+---+ | | | +---+---+ + +-------+ +-------+---+---+ | metoclopramide HCl (REGLAN) | Given | 01/18/20 | 10 mg | | | | injection intravenous, | | 18 10:59 | | | | | INTRAPROCEDURE PRN, Starting Mon | | AM PDT | | | | | 01/17/18 at 1059, Until Mon | | | | | | | 01/17/18 at 1122 | | | | | | + +-------+ +-------+---+---+ +---+---+ | | | +---+---+ + +-------+ +------+---+---+ | neostigmine (PROSTIGMIN) | Given | 01/18/20 | 1 mg | | | | injection intravenous, | | 18 11:06 | | | | | INTRAPROCEDURE PRN, Starting Mon | | AM PDT | | | | | 01/17/18 at 1101, Until Mon | | | | | | | 01/17/18 at 1122 | | | | | | + +-------+ +------+---+---+ +-------+ +------+---+---+ | Given | 01/18/20 | 3 mg | | | | | 18 11:01 | | | | | | AM PDT | | | | +-------+ +------+---+---+ +---+---+ | | | +---+---+ + +-------+ +------+---+---+ | ondansetron (ZOFRAN) injection | Given | 01/18/20 | 4 mg | | | | intravenous, INTRAPROCEDURE PRN, | | 18 10:59 | | | | | Starting Wed01/17/18 at 1059, | | AM PDT | | | | | Until Wed01/17/18 at 1122 | | | | | | + +-------+ +------+---+---+ +---+---+ | | | +---+---+ + +-------+ +---------+---+---+ | PHENYLEPHrine 100 mcg/mL | Given | 01/18/20 | 100 mcg | | | | injection (OR syringe) | | 18 10:51 | | | | | intravenous, INTRAPROCEDURE PRN, | | AM PDT | | | | | Starting Wed01/17/18 at 0900, | | | | | | | Until Wed01/17/18 at 1122 | | | | | | + +-------+ +---------+---+---+ +-------+ +---------+---+---+ | Given | 01/18/20 | 100 mcg | | | | | 18 10:46 | | | | | | AM PDT | | | | +-------+ +---------+---+---+ | Given | 01/18/20 | 100 mcg | | | | | 18 10:45 | | | | | | AM PDT | | | | +-------+ +---------+---+---+ +---+---+ | | | +---+---+ + +-------+ +-------+---+---+ | propofol intravenous, | Given | 01/18/20 | 40 mg | | | | INTRAPROCEDURE PRN, Starting Mon | | 18 10:38 | | | | | 01/17/18 at 0844, Until Mon | | AM PDT | | | | | 01/17/18 at 1122 | | | | | | + +-------+ +-------+---+---+ +-------+ +--------+---+---+ | Given | 01/18/20 | 200 mg | | | | | 18 8:44 | | | | | | AM PDT | | | | +-------+ +--------+---+---+ +---+---+ | | | +---+---+ + +-------+ +-------+---+---+ | rocuronium (ZEMURON) injection | Given | 01/18/20 | 20 mg | | | | intravenous, INTRAPROCEDURE PRN, | | 18 8:55 | | | | | Starting Wed01/17/18 at 0855, | | AM PDT | | | | | Until Wed01/17/18 at 1122 | | | | | | + +-------+ +-------+---+---+ +-------+ +-------+---+---+ | Given | 01/18/20 | 50 mg | | | | | 18 8:44 | | | | | | AM PDT | | | | +-------+ +-------+---+---+ +---+---+ | | | +---+---+ + +-------+ +---------+---+---+ | vasopressin (PITRESSIN) | Given | 01/18/20 | 1 Units | | | | injection INTRAPROCEDURE PRN, | | 18 9:57 | | | | | Starting 01/17/18 at 0957, | | AM PDT | | | | | Until Wed01/17/18 at 1122 | | | | | | + +-------+ +---------+---+---+ +---+---+ | | | +---+---+ documented in this encounter"
--- OUTSIDE RECORDS SUMMARY | ~2019-10-18 | XMS | Encounter Summary ---
Demographics + + + | Address | [address] | | | [place] [address] | + + + | Home Phone | | + + + | Preferred Language | Unknown | + + + | Marital Status | | + + + | Yarsani Affiliation | NRP | + + + | Race | White | + + + | Ethnic Group | Not or | + + + Author + + + | Author | [facility] | + + + | Organization | [facility] | + + + | Address | Unknown | + + + | Phone | Unavailable | + + + Support + + + + + | Name | Relationship | Address | Phone | + + + + + | Pooja Valdez | ECON | [address] | | | | | [place] | | | | | [address] | | + + + + + Care Team Providers + +------+ + | Care Grain I Farmworker Name | Role | Phone | + +------+ + | Hemalatha Lawrence PA-C | PCP | | + +------+ + Encounter Details +--------+ + + + + | Date | Type | Department | Care Team | Description | +--------+ + + + + | 02/09/ | MyChart | Digestive Health | | Bariatric follow up | | 2019 | Encounter | Center at [facility] [address] | | appointment | | | | [address] | | | | | | Mailcode: Center | | | | | | for Health and | | | | | | Healing, [address] | | | | | | [place], [place] | | | | | | [address] | | | | | | [phone] | | | +--------+ + + + [...] | Pre-operative | 2, Andr[address] | | | 2020 | Visit | Medicine | [address] | | | | | | [place] [address] | | +--------+ + + + + [...] [place] | | | | | | [address] | | | | | | [phone] | | | | | | | | +--------+ + + + + documented as of this encounter Visit Diagnoses Not on filedocumented in this encounter"
--- OUTSIDE RECORDS SUMMARY | ~2019-10-18 | XMS | Encounter Summary ---
Demographics + + + | Address | [address] | | | [place] [address] | + + + | Home Phone | | + + + | Preferred Language | Unknown | + + + | Marital Status | | + + + | Worship Affiliation | NRP | + + + | Race | White | + + + | Ethnic Group | Not or | + + + Author + + + | Author | [facility] | + + + | Organization | [facility] | + + + | Address | Unknown | + + + | Phone | Unavailable | + + + Support + + + + + | Name | Relationship | Address | Phone | + + + + + | Pooja Valdez | ECON | [address] | | | | | [place] | | | | | [address] | | + + + + + Care Team Providers + +------+ + | Care Charge Account Authorizer Name | Role | Phone | + +------+ + | Hemalatha Lawrence PA-C | PCP | | + +------+ + Reason for Visit +---------+ + | Reason | Comments | +---------+ + | Post Op | | +---------+ + Encounter Details +--------+ + + + + | Date | Type | Department | Care Team | Description | +--------+ + + + + | 01/21/ | Telephone | Digestive Health | Evelia, Sheridan A, | Post Op | | 2018 | | Center [address] | MD [address] | | | | | Ave Mailcode: CH[address] | [place], [place] | | | | | [facility] | [address] | | | | | and Healing, | | | | | | [place] [address], [facility] | | | | | | Floor [facility] [place] | | | | | | [address] | | | | | | [phone] | | | +--------+ + + + [...] | 12/15/ | Office | Pre-operative | [facility] [address] | | | 2019 | Visit | Medicine | [address] | | | | | | [place] [address] | | +--------+ + + + + | 01/04/ | Procedure | Surgery | | | | 2019 | Pass | | | | +--------+ + + + + | 01/25/ | Office | Otolaryngology | Santos Valdivia, | | | 2019 | Visit | | [address] | | | | | | [address] | | | | | | [place], [place] | | | | | | [address] | | | | | | [phone] | | | | | | | | +--------+ + + + + documented as of this encounter Visit Diagnoses Not on filedocumented in this encounter"
--- OUTSIDE RECORDS SUMMARY | ~2019-10-18 | XMS | Encounter Summary ---
Demographics + + + | Address | [address] | | | [place] [address] | + + + | Home Phone | | + + + | Preferred Language | Unknown | + + + | Marital Status | | + + + | Hinduism Affiliation | NRP | + + + | Race | White | + + + | Ethnic Group | Not or | + + + Author + + + | Author | [facility] | + + + | Organization | [facility] | + + + | Address | Unknown | + + + | Phone | Unavailable | + + + Support + + + + + | Name | Relationship | Address | Phone | + + + + + | Pooja Valdez | ECON | [address] | | | | | [place] | | | | | [address] | | + + + + + Care Team Providers + +------+ + | Care Clinical Nurse Reviewer Name | Role | Phone | + +------+ + | Rian [place] MD | PCP | | + +------+ + Reason for Visit +--------+ + | Reason | Comments | +--------+ + | Other | Questions regarding outside order for Echos | +--------+ + Encounter Details +--------+ + + + + | Date | Type | Department | Care Team | Description | +--------+ + + + + | 10/27/ | Telephone | Cardiology | Poly Joseph | Other (Questions | | 2017 | | Preventive at [facility] | [address] | regarding outside | | | | [address] | [address] [place], | order for Echos ) | | | | Mailcode: CH9A | [place] [address] | | | | | [facility] | [phone] | | | | | and [address], | | | | | | [address] | | | | | | [place], [place] | | | | | | [address] | | | | | | [phone] | | | +--------+ + + + [...] 12/15/ | Office | Pre-operative | 2, [facility] [address] | | | 2019 | Visit | Medicine | [address] | | | | | | [place] [address] | | +--------+ + + + + [...] Rd | | | | | | [place] | | | | | | [address] | | | | | | [phone] | | | | | | | | +--------+ + + + + documented as of this encounter Visit Diagnoses Not on filedocumented in this encounter"
--- OUTSIDE RECORDS SUMMARY | ~2019-10-18 | XMS | Encounter Summary ---
Demographics + + + | Address | [address] | | | [place] [address] | + + + | Home Phone | | + + + | Preferred Language | Unknown | + + + | Marital Status | | + + + | Orthodoxy Affiliation | NRP | + + + [...] [place] | | | | | [address] | | + + + + + Care Team Providers + +------+ + | Care Chief Knowledge Officer Name | Role | Phone | + +------+ + | Hemalatha Lawrence PA-C | PCP | | + +------+ + Encounter Details +--------+ + + + + | Date | Type | Department | Care Team | Description | +--------+ + + + + | 04/25/ | MyChart | Digestive Health | Arvin Altamirano, | RE: weight | | 2017 | Encounter | Center at [facility] [address] | MD [address] | | | | | [address] | [place], [place] | | | | | Mailcode: Center | [address] | | | | | for Health and | [phone] | | | | | Healing, [address] | | | | | | [place], [place] | | | | | | [address] | | | | | | [phone] | | | +--------+ + + + [...] 12/15/ | Office | Pre-operative | 2, [facility] [address] | | | 2020 | Visit | Medicine | [address] | | | | | | [place] [address] | | +--------+ + + + + | 01/04/ | Procedure | Surgery | | | | 2019 | Pass | | | | +--------+ + + + + | 01/25/ | Office | Otolaryngology | Santos Valdivia, | | | 2019 | Visit | | [address] [facility] | | | | | | [address] | | | | | | [facility] [place] | | | | | | [address] | | | | | | [phone] | | | | | | | | +--------+ + + + + documented as of this encounter Visit Diagnoses Not on filedocumented in this encounter"
--- OUTSIDE RECORDS SUMMARY | ~2019-10-18 | XMS | Encounter Summary ---
Demographics + + + | Address | [address] | | | [place] [address] | + + + | Home Phone | | + + + | Preferred Language | Unknown | + + + | Marital Status | | + + + | Mu-Ism Affiliation | NRP | + + + | Race | White | + + + | Ethnic Group | Not or | + + + Author + + + | Author | [facility] | + + + | Organization | [facility] | + + + | Address | Unknown | + + + | Phone | Unavailable | + + + Support + + + + + | Name | Relationship | Address | Phone | + + + + + | Pooja Valdez | ECON | [address] | | | | | [place] | | | | | [address] | | + + + + + Care Team Providers + +------+ + | Care Client Relation Specialist Name | Role | Phone | + +------+ + | Hemalatha Lawrence PA-C | PCP | | + +------+ + Encounter Details +--------+ + + + + | Date | Type | Department | Care Team | Description | +--------+ + + + + | 04/21/ | MyChart | Dig[facility]ive Health | Arvin Altamirano, | RE: faint | | 2018 | Encounter | Center [address] | [address] | | | | | [address] Mailcode: [address] | [place], [place] | | | | | [facility] | [address] | | | | | and Healing, | [phone] | | | | | Building | | | | | | Floor [place], [place] | | | | | | [address] | | | | | | [phone] | | | +--------+ + + + [...] [facility] [address] | | | 2020 | Visit | Medicine | [address] | | | | | | [place] [address] | | +--------+ + + + + | 01/04/ | Procedure | Surgery | | | | 2019 | Pass | | | | +--------+ + + + + | 01/25/ | Office | Otolaryngology | Santos Valdivia, | | | 2019 | Visit | | [address] [facility] | | | | | | [address] | | | | | | [place] | | | | | | [address] | | | | | | [phone] | | | | | | | | +--------+ + + + + documented as of this encounter Visit Diagnoses Not on filedocumented in this encounter"
--- OUTSIDE RECORDS SUMMARY | ~2019-10-18 | XMS | Encounter Summary ---
Demographics + + + | Address | [address] | | | [place] [address] | + + + | Home Phone | | + + + | Preferred Language | Unknown | + + + | Marital Status | | + + + | Denominational Affiliation | NRP | + + + [...] [place] | | | | | [address] | | + + + + + Care Team Providers + +------+ + | Care Vehicle Assembler Name | Role | Phone | + +------+ + | Hemalatha Lawrence PA-C | PCP | | + +------+ + Reason for Referral Consultation (Urgent) +--------+--------+ + + + + | Status | Reason | Specialty | Diagnoses / | Referred By | Referred To | | | | | Procedures | Contact | Contact | +--------+--------+ + + + + | Closed | | | Diagnoses | Evelia, | | | | | | Abdominal | Arvin Briscoe MD | | | | | | pain, | [address] | | | | | | unspecified | [address] | | | | | | abdominal | [place], [place] | | | | | | location | [address] | | | | | | Epigastric | Phone: | | | | | | pain S/P | [phone] | | | | | | gastric | Fax: | | | | | | bypass | [phone] | | | | | | Nausea and | | | | | | | vomiting, | | | | | | | intractabili | | | | | | | ty of | | | | | | | vomiting not | | | | | | | specified, | | | | | | | unspecified | | | | | | | vomiting | | | | | | | type | | | | | | | Procedures | | | | | | | CONSULT TO | | | | | | | GI PROCEDURE | | | | | | | UNIT: EGD | | | +--------+--------+ + + + + Reason for Visit + + + | Reason | Comments | + + + | Question | for RN | + + + Encounter Details +--------+ + + + + | Date | Type | Department | Care Team | Description | +--------+ + + + + | 04/05/ | Telephone | Digestive Health | Arvin Altamirano, | Question (for RN) | | 2018 | | Center at [facility] [address] | MD [address] | | | | | [address] | [place], [place] | | | | | Mailcode: [place] | [address] | | | | | for Health and | [phone] | | | | | [facility] [address] | | | | | | [place], [place] | | | | | | [address] | | | | | | [phone] | | | +--------+ + + + [...] 12/15/ | Office | Pre-operative | 2, [facility] [address] | | | 2019 | Visit | Medicine | [address] | | | | | | [place] [address] | | +--------+ + + + + [...] Rd | | | | | | [place], [place] | | | | | | [address] | | | | | | [phone] | | | | | | | | +--------+ + + + + documented as of this encounter Visit Diagnoses + + | Diagnosis | + + | Abdominal pain, unspecified abdominal location - Primary | + + | Epigastric pain Abdominal pain, epigastric | + + | S/P gastric bypass Bariatric surgery status | + + | Nausea and vomiting, intractability of vomiting not specified, unspecified vomiting | | type | + + documented in this encounter"
--- OUTSIDE RECORDS SUMMARY | ~2019-10-18 | XMS | Encounter Summary ---
Demographics + + + | Address | [address] | | | [place] [address] | + + + | Home Phone | | + + + | Preferred Language | Unknown | + + + | Marital Status | | + + + | Orthodox Affiliation | NRP | + + + | Race | White | + + + | Ethnic Group | Not or | + + + Author + + + | Author | [facility] | + + + | Organization | [facility] | + + + | Address | Unknown | + + + | Phone | Unavailable | + + + Support + + + + + | Name | Relationship | Address | Phone | + + + + + | Pooja Valdez | ECON | [address] | | | | | [place] | | | | | [address] | | + + + + + Care Team Providers + +------+ + | Care Net Maker Name | Role | Phone | + +------+ + | Hemalatha Pacheco PA-C | PCP | | + +------+ + Reason for Referral PROC - Dept/Practice Procedure (Urgent) +--------+--------+ + + + + | Status | Reason | Specialty | Diagnoses / | Referred By | Referred To | | | | | Procedures | Contact | Contact | +--------+--------+ + + + + | Closed | | Gastroenterol | Diagnoses | Matro, | Gas Endo | | | | ogy | S/P gastric | MD Rolando | [facility] [address] | | | | | bypass | [address] | | | | | Stenosis of | [address] | Mailcode: | | | | | gastrointest | [place], [place] | [facility] | | | | | inal | [address] | for Health | | | | | structure | Phone: | and Healing, | | | | | (HCC) | [phone] | Building [address] | | | | | Procedures | Fax: | [place], [place] | | | | | CONSULT TO | [phone] | [address] | | | | | GI PROCEDURE | | Phone: | | | | | UNIT: EGD | | [phone] | | | | | [place] [facility] | | Fax: | | | | | ENDOSCOPY,BI | | [phone] | | | | | [facility] [place] [facility] | | | | | | | GI | | | | | | | ENDOSCOPY,BA | | | | | | | LL DIL,30MM | | | +--------+--------+ + + + + Reason for Visit AUTH/CERT +--------+--------+ + [...] + + + + | 04/21/ | Hospital | [facility] [address] | Rolando Gonzalez MD | | | 2018 | Encounter | [address] | [address] | | | | | [facility] | [place], [place] | | | | | [facility] | [address] | | | | | (MNP/OLD N) | [phone] | | | | | [place], [place] | | | | | | [address] | | | | | | [phone] | | | +--------+ + + + [...] + + + | Blood Pressure | 107/71 | 04/21/2018 9:26 AM | | | | | PDT | | + + + + + | Pulse | 61 | 04/21/2018 9:26 AM | | | | | PDT | | + + + + + | Temperature | 36.5 C (97.7 F) | 04/21/2018 8:45 AM | | | | | PDT | | + + + + + | Respiratory Rate | 16 | 04/21/2018 9:26 AM | | | | | PDT | | + + + + + | Oxygen Saturation | 96% | 04/21/2018 9:03 AM | | | | | PDT | | + + + + + | Inhaled Oxygen | - | - | | | Concentration | | | | + + + + + | Weight | 114.8 kg (253 lb) | 04/21/2018 7:10 AM | | | | | PDT | | + + + + + | Height | 188 cm (6' 2") | 04/21/2018 7:10 AM | | | | | PDT | | + + + + + | Body Mass Index | 32.48 | 04/21/2018 7:10 AM | | | | | PDT [...] + documented as of this encounter Discharge Instructions Instructions Bouchra Clay RN - 04/21/2018Home Care Instructions after EGD (Upper Endosc opy) You may resume your normal diet and medications unless told otherwise. Medications The medications you received for your procedure can cause you to be forgetful and drowsy an d will take the remainder of the day to wear off. DO NOT drink alcohol, drive, operate heavy machinery, sign legal documents, or make major d ecisions until tomorrow. Common After Effects Mild abdominal pain, bloating, and gas. Sore throat. You may treat it with throat lozenges and/or gargle with warm salt water. You may bruise at your IV site. If you have pain, redness, or swelling at your IV site a pply a warm compress. Complications Call your GI doctor if you have: Abnormal pain or any new unexplained symptoms. Shortness of breath, chest or neck pain. Vomiting blood or rectal bleeding. Fever above 101.5 Redness, pain, or swelling at your IV site that is not relieved with warm compress. For any questions related to your procedure, call Wednesday- Wednesday 8:00- 4:30 Call the endoscopy department toll free ext. [phone] or After business hours or on weekends and holiday Hospital Account Representative toll free [phone] [phone] and have the GI doctor division operations specialist paged. The provider who performed your procedure is: Dr. Gonzalez Results of your EGD: Dilation performed. Repeat EGD in 1-2 weeks. Diet: As tolerated Follow up Appointments with: Your Primary care provider as needed. Your primary care provider or referring provider will receive copies of the procedure repor t and all the pathology reports with recommendations for treatment if needed. If Noted above that biopsies were taken or polyps removed we will receive the results in ap proximately 1 week. If you have not heard from us after 2 weeks please call for your results . General Discharge Instructions for Same-Day Procedure Patients: ? Remember that you are under the influence of medications. Do not stay alone. A responsible person should be with you. Do not drive, drink alcohol or make important personal or business decisions for 24 hour s. ? Resume normal activity and return to work when advised by your Doctor. Pain Management: Your last oral pain medication was given at: none ? Please follow your Doctor s instructions on the medication bottle. ? Do not take pain medication on an empty stomach, as this may cause nausea and vomiting. ? Do not drive or drink alcohol while on opioid pain medication. ? If you received a Peripheral Nerve Block, please take pain medication when numbing begins to wear off or when you go to bed. This will allow for pain coverage when your nerve block wears off during the night. ? If pain is not relieved or increases despite following these instructions, please call yo ur Doctor. Diet: ? If you do not experience nausea or vomiting resume your regular diet. Eat lightly and av oid large, high fat or highly spiced meals for 24-48 hours. ? Constipation can be a side effect of opioid pain medication. Take stool softeners, incre ase dietary fiber and drink plenty of water to prevent this. Wound/Dressing/Drain Care: ? Call your Doctor if there is excessive bleeding, redness, swelling or drainage at the ope rative site. Urination: ? Please contact your Doctor or proceed to the nearest Emergency Room if you have not urina indra/voided in 8 hours after discharge. IV Site Care Instructions: ? Monitor IV site for pain, redness, swelling and/or drainage. If present, call your Docto r immediately. ? Minor redness and/or tenderness may be treated with warm, moist compresses for 24-48 hour s. If the area is still red and/or tender after this, notify your Doctor. Call your Doctor if you experience: ? Persistent nausea or vomiting. ? Fever ?101F or chills. ? Increased or uncontrolled pain despite taking pain medications. Call 911 if you experience difficulty breathing or unusual shortness of breath documented in this encounter Medications at Time [...] | | 0 | | | | gly,[id number] | mouth once daily. | | | [...] documented as of this encounter Progress Notes Rolando Gonzalez MD - 04/21/2018 8:11 AM PDT PRE PROCEDURE NOTE: MR# [id number] Subjective: Mynor Valdez is a 48 y.o. male presents today for upper endoscopy with dila tion. Patient History Reviewed Medications reviewed Pt NPO for 4 hrs. Allergies: Allergies as of 04/15/2018 - Fully Reviewed 02/25/2018 Allergen Reaction Noted Actos [pioglitazone hcl] Headache 05/13/2017 Cephalexin hcl Unknown 05/13/2017 Metformin Diarrhea 05/13/2017 ROS: All others negative. Objective: Vital Signs: BP 115/75 | Pulse 60 | Temp 36.8 C (98.2 F) | RR 16 | Ht 1.88 m (6' 2") | Wt 114.8 kg (253 lb) | SpO2 99% | BMI 32.48 kg/(m^2) Neuro: Patient oriented X3. Mallampati Score: 2 Neck: No significant findings by visual inspection Respiratory: Breathing comfortably Cardiovascular: Regular rate and rhythm Abdomen: + bowel sounds, soft, nontender, nondistended Impression History reviewed, and patient deemed appropriate for planned procedure. ASA Class: 2 Plan Proceed with upper endoscopy with dilation. PARQ held and all questions addressed. Consent obtained. See procedure note 04/21/2018 documented in this enc ounter Plan of Treatment +--------+ + + + + | Date | Type | Specialty | Care Team | Description | +--------+ + + + + | 12/15/ | Office | Pre-operative | 2, [facility] [address] | | | 2019 | Visit | Medicine | [address] | | | | | | [place] [address] | | +--------+ + + + + [...] | | | | | | [place], [place] | | | | | | [address] | | | | | | [phone] | | | | | | | | +--------+ + + + + documented as of this encounter Procedures + +--------+ + + + | Procedure Name | Priori | Date/Time | Associated Diagnosis | Comments | | | ty | | | | + +--------+ + + + | EGD | Routin | 04/21/2018 | Stenosis of | Results for this | | | e | 8:14 AM | gastrointestinal | procedure are in the | | | | PDT | structure (HCC) | results section. | | | | | Unable to eat solid | | | | | | foods Abdominal | | | | | | pain, unspecified | | | | | | abdominal location | | | | | | Intractable vomiting | | | | | | with nausea, | | | | | | unspecified vomiting | | | | | | type | | + +--------+ + + + | CAPILLARY BLOOD | Routin | 04/21/2018 | S/P gastric bypass | Results for this | | GLUCOSE (NO CHG), | e | 7:32 AM | | procedure are in the | | POC | | PDT | | results section. 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 | | | The Olympus [id number] Gastroscope | | | #[id number] was introduced through the | | | mouth, and advanced to the jejunum. The | | | upper GI endoscopy was accomplished without | | | difficulty. The patient tolerated the procedure well.Estimated | | | Blood Loss: Estimated blood loss: none.Findings: The | | | esophagus was normal. Evidence of a Brynn-en-Y gastrojejunostomy | | | was found. 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 The stenosis was 5-6 mm in diatmeter and 10 cm | | | in length. This was traversed with gentle pressure using the | | | noodle scope. The examined jejunum was normal. A guide | | | wire was placed, then the scope was withdrawn. Using the wire as | | | a guide with the scope passed next to the wire, dilation with an | | | 8-9-10 mm anastomotic balloon dilator was performed at the | | | anastomosis to 10 mm.Moderate Sedation: Moderate (conscious) | | | sedation was administered by the endoscopy nurse and supervised | | | by the endoscopist. The patient's oxygen saturation, heart | | | rate, blood pressure and response to care were monitored. Total | | | physician intraservice time was 22 minutes.Impression: | | | - Normal esophagus. - Brynn-en-Y | | | gastrojejunostomy with gastrojejunal | | | anastomosis characterized by severe stenosis status post | | | dilation to 10 mm. - | | | Normal examined jejunum.Recommendation: - Discharge patient to | | | home. - Full liquid diet. | | | - Use Prilosec (omeprazole) 40 mg PO daily. | | | - Repeat upper endoscopy in 1 week for | | | retreatment.ROLANDO GONZALEZ MD04/21/2018 8:48:49 AMThis report has been | | | signed electronically.Number of Addenda: 0Note Initiated On: 04/21/2018 | | | 8:14 [facility] Letter to: HEMALATHA PACHECO PA-C | | | - Full liquid diet. | | | - Use Prilosec (omeprazole) 40 mg PO daily. | | | - Repeat upper endoscopy in 1 week for retreatment. | | |ROLANDO GONZALEZ MD | | |04/21/2018 8:48:49 AM | | |This report has been signed electronically. | | |Number of Addenda: 0 | | |Note Initiated On: 04/21/2018 8:14 AM | | |CC Letter to: | | | HEMALATHA PACHECO PA-C | | + +------- -------+ + +---------+ + + | Performing | Address | City/State[facility] | Phone Number | | Organization | | | | + +---------+ + + | [facility] | | | | + +---------+ + + CAPILLARY BLOOD GLUCOSE (NO CHG), POC (04/21/2018 7:32 AM PDT) + +---------+ + + + | Component | Value | Ref Range | Performed | Pathologist | | | | | At | Signature | + +---------+ + + + | BLOOD | 122 (H) | 70 - 99 mg/dL | [...] + + + + + | [facility] | [address] | [place], [place] | | | [facility] | [address] | [address] | | | TESTS | | | | + + + + + documented in this encounter Visit Diagnoses + + | Diagnosis | + + | S/P gastric bypass - Primary Bariatric surgery status | + + | Stenosis of gastrointestinal structure (HCC) | + + | Unable to eat solid foods Dysphagia, unspecified | + + | Abdominal pain, unspecified abdominal location | + + | Intractable vomiting with nausea, unspecified vomiting type | + + documented in this encounter Administered Medications + +--------+ +--------+------+------+ | Medication Order | MAR | Action | Dose | Rate | Site | | | Action | Date | | | | + +--------+ +--------+------+------+ | fentaNYL (SUBLIMAZE) injection | Given | 04/21/20 | 50 mcg | | | | intravenous, INTRAPROCEDURE PRN, | | 18 8:16 | | | | | Starting Marry 04/21/18 at 0816, | | AM PDT | | | | | Until Marry 04/21/18 at 0816 | | | | | | + +--------+ +--------+------+------+ +---+---+ | | | +---+---+ + +-------+ +--------+---+---+ | fentaNYL (SUBLIMAZE) injection | Given | 04/21/20 | 25 mcg | | | | intravenous, INTRAPROCEDURE PRN, | | 18 8:18 | | | | | Starting Marry 04/21/18 at 0819, | | AM PDT | | | | | Until Marry 04/21/18 at 0818 | | | | | | + +-------+ +--------+---+---+ +---+---+ | | | +---+---+ + +-------+ +--------+---+---+ | fentaNYL (SUBLIMAZE) injection | Given | 04/21/20 | 25 mcg | | | | intravenous, INTRAPROCEDURE PRN, | | 18 8:20 | | | | | Starting Marry 04/21/18 at 0820, | | AM PDT | | | | | Until Marry 04/21/18 at 0820 | | | | | | + +-------+ +--------+---+---+ +---+---+ | | | +---+---+ + +-------+ +--------+---+---+ | fentaNYL (SUBLIMAZE) injection | Given | 04/21/20 | 25 mcg | | | | intravenous, INTRAPROCEDURE PRN, | | 18 8:23 | | | | | Starting Marry 04/21/18 at 0823, | | AM PDT | | | | | Until Marry 04/21/18 at 0823 | | | | | | + +-------+ +--------+---+---+ +---+---+ | | | +---+---+ + +-------+ +--------+---+---+ | fentaNYL (SUBLIMAZE) injection | Given | 04/21/20 | 25 mcg | | | | intravenous, INTRAPROCEDURE PRN, | | 18 8:25 | | | | | Starting Marry 04/21/18 at 0825, | | AM PDT | | | | | Until Marry 04/21/18 at 0825 | | | | | | + +-------+ +--------+---+---+ + +---+ | | | + +---+ | lidocaine viscous (XYLOCAINE | | | VISCOUS) 2 % mucosal solution 15 | | | mL 15 mL, oral, INTRAPROCEDURE | | | PRN, Starting Marry 04/21/18 at | | | 0707, Until Marry 04/21/18 at 1622, | | | sore oropharynx | | + +---+ | | | + +---+ + +-------+ +------+---+---+ | lidocaine viscous (XYLOCAINE | Given | 04/21/20 | 6 mL | | | | VISCOUS) 2 % mucosal solution | | 18 8:16 | | | | | Mouth/Throat, INTRAPROCEDURE PRN, | | AM PDT | | | | | Starting Marry 04/21/18 at 0816, | | | | | | | Until Marry / at 0816 | | | | | | + +-------+ +------+---+---+ +---+---+ | | | +---+---+ + +-------+ +------+---+---+ | midazolam (PF) (VERSED) | Given | 04/21/20 | 2 mg | | | | injection INTRAPROCEDURE PRN, | | 18 8:16 | | | | | Starting Marry 04/21/18 at 0816, | | AM PDT | | | | | Until Marry 04/21/18 at 0816 | | | | | | + +-------+ +------+---+---+ +---+---+ | | | +---+---+ + +-------+ +------+---+---+ | midazolam (PF) (VERSED) | Given | 04/21/20 | 1 mg | | | | injection INTRAPROCEDURE PRN, | | 18 8:18 | | | | | Starting Marry /18 at 0819, | | AM PDT | | | | | Until Marry / at 0818 | | | | | | + +-------+ +------+---+---+ +---+---+ | | | +---+---+ + +-------+ +------+---+---+ | midazolam (PF) (VERSED) | Given | 04/21/20 | 1 mg | | | | injection INTRAPROCEDURE PRN, | | 18 8:20 | | | | | Starting Marry 04/21/18 at 0820, | | AM PDT | | | | | Until Marry 04/21/18 at 0820 | | | | | | + +-------+ +------+---+---+ +---+---+ | | | +---+---+ + +-------+ +------+---+---+ | midazolam (PF) (VERSED) | Given | 04/21/20 | 1 mg | | | | injection INTRAPROCEDURE PRN, | | 18 8:23 | | | | | Starting Marry 04/21/18 at 0823, | | AM PDT | | | | | Until Marry 04/21/18 at 0823 | | | | | | + +-------+ +------+---+---+ +---+---+ | | | +---+---+ + +-------+ +------+---+---+ | midazolam (PF) (VERSED) | Given | 04/21/20 | 1 mg | | | | injection INTRAPROCEDURE PRN, | | 18 8:25 | | | | | Starting Marry 04/21/18 at 0825, | | AM PDT | | | | | Until Marry 04/21/18 at 0825 | | | | | | + +-------+ +------+---+---+ + +---+ | | | + +---+ | simethicone (MYLICON) | | | suspension 3.333 mg 3.333 mg | | | (rounded from 3.3333 mg = 1 | | | drop), oral, HSD PRN, Starting | | | Marry 04/21/18 at 0707, Until Marry | | | 04/21/18 at 1622, bloating, gas | | | bubbles | | + +---+ | | | + +---+ | sodium chloride 0.9% IV | | | infusion 50 mL/hr, intravenous, | | | CONTINUOUS, Starting Marry 04/21/18 | | | at 0715, Until Marry 04/21/18 at | | | 1622 | | + +---+ | | | + +---+ documented in this encounter
--- OUTSIDE RECORDS SUMMARY | ~2019-10-18 | XMS | Encounter Summary ---
Demographics + + + | Address | [address] | | | [place] [address] | + + + | Home Phone | | + + + | Preferred Language | Unknown | + + + | Marital Status | | + + + | Religion Affiliation | NRP | + + + [...] [place] | | | | | [address] | | + + + + + Care Team Providers + +------+ + | Care Production Control Expert Name | Role | Phone | + +------+ + | Hemalatha Lawrence PA-C | PCP | | + +------+ + Reason for Referral PROC - Outpatient Surgery (Routine) + +---------+ + + + + | Status | Reason | Specialty | Diagnoses / | Referred By | Referred To | | | | | Procedures | Contact | Contact | + +---------+ + + + + | Authorized | Coded | Otolaryngolog | Diagnoses | Hullar, | Hullar, | | | | y | Conductive | Santos Olson, | Santos Olson MD | | | | | hearing | MD [address] | | | | | loss, middle | [address] | | | | | ear | [address] | [address] | | | | | [place] | [place] | [place] | | | | | a of right | [address] | [address] | | | | | ear | Phone: | Phone: | | | | | Procedures | [phone] | [phone] | | | | | REQUEST TO | Fax: | Fax: | | | | | SURGERY | [phone] | [phone] | | | | | DIRECTOR SALES [employer] MARKETING | | | | | | | [place] | | | | | | | TYMPANOPLAS/ | | | | | | | MASTOID,INTC | | | | | | | T [place] | | | | | | | [place] | | | | | | | TYMPANOPLAS/ | | | | | | | MASTOIDEC,IN | | | | | | | TACT WALL | | | | | | | [place] | | | | | | | TYMPANOPLAST | | | | | | | Y,REBLD | | | | | | | OSSIC | | | | | | | CHAIN+PROS | | | | | | | [place] | | | | | | | TYMPANOPLAST | | | | | | | Y [place] | | | | | | | TYMPANOPLAS/ | | | | | | | ANTROT,REBLD | | | | | | | OSSIC+PROST | | | | | | | [place] | | | | | | | TYMPANOPLAS/ | | | | | | | ANTROT,REBLD | | | | | | | OSSIC CHAIN | | | | | | | [place] | | | | | | | TYMPANOPLAS/ | | | | | | | ANTROTOMY | | | | | | | [place] | | | | | | | TYMPANOPLAST | | | | | | | Y,REBUILD | | | | | | | OSSICUL | | | | | | | CHAIN [place] | | | | | | | CREATE | | | | | | | EARDRUM | | | | | | | OPENING,GEN | | | | | | | ANESTH [place] | | | | | | | EAR | | | | | | | CARTILAGE | | | | | | | GRAFT TO | | | | | | | FACE 90 | | | | | | | global | | | + +---------+ + + + + Reason for Visit + + + | Reason | Comments | + + + | Ear problem | here for ear eval | + + + Intake Referral (Routine) + +--------+ + + + + | Status | Reason | Specialty | Diagnoses / | Referred By | Referred To | | | | | Procedures | Contact | Contact | + +--------+ + + + + | Authorized | | Otolaryngolog | Diagnoses | Gregorio, | Shea, | | | | y | history of | MD Errol | Santos Olson MD | | | | | multiple ear | [address] | [address] [facility] | | | | | surgeries, | Basilia Barrios | [address] | | | | | incomplete | Kris, | Rd | | | | | mastoidectom | [place] [address] | [place], [place] | | | | | y | Phone: | [phone] | | | | | Procedures | [phone] | Phone: | | | | | completion | Fax: | [phone] | | | | | of | [phone] | Fax: | | | | | mastoidectom | | [phone] | | | | | y, revision | | | | | | | of | | | | | | | tympanoplast | | | | | | | y | | | + +--------+ + + + + Encounter Details +--------+---------+ + + + | Date | Type | Department | Care Team | Description | +--------+---------+ + + + | 08/18/ | Office | Otolaryngology | Santos Valdivia, | Conductive hearing | | 2019 | Visit | Otology Services at | MD [address] | loss, middle ear | | | | [facility] [address] | [address] | (Primary Dx); | | | | [address] | [place], [place] | Cholesteatoma of | | | | Mailcode: PV01 | [address] | right ear; | | | | [facility] | [phone] | Perforation of left | | | | [place], [place] | | tympanic membrane | | | | [address] | | | | | | [phone] | | | +--------+---------+ + + + [...] + + + | Blood Pressure | 143/71 | 08/18/2019 1:36 PM | | | | | PDT | | + + + + + | Pulse | 97 | 08/18/2019 1:36 PM | | | | | PDT | | + + + + + | Temperature | - | - | | + + + + + | Respiratory Rate | - | - | | + + + + + | Oxygen Saturation | - | - | | + + + + + | Inhaled Oxygen | - | - | | | Concentration | | | | + + + + + | Weight | 119.3 kg (263 lb) | 08/18/2019 1:36 PM | | | | | PDT | | + + + + + | Height | 188 cm (6' 2") | 08/18/2019 1:36 PM | | | | | PDT | | + + + + + | Body Mass Index | 33.77 | 08/18/2019 1:36 PM | | | | | PDT [...] of this encounter Patient Instructions Patient Instructions Amy Wagner - 08/18/2019 2:00 PM NABOR believe you have a right gene steatoma. This can be corrected surgically. You have a hole in your left eardrum. Thank you so much for seeking care in the Division of Otology, Neurotology, and Skull Base Surgery. We hope we have been able to help you. If you have any questions about your care, please feel free to contact us at one of the num bers below or through [employer]. Your questions can best be answered during business hours at [phone], but for urgent questions after hours, call the [facility] wool washing machine operator at to contact our on-call team. As always, a few reminders about the health of your ears: --Noise exposure should be a concern for everyone. Any time you've been exposed to sound a nd you hear a ringing in your ears afterward, you have damaged your ears-- potentially perma nently. More than eight hours of exposure to a collar baster, or half an hour to a rock concer t, is enough to cause permanent damage, according to OSHA rules. --Putting anything in your ears except as recommended by us is generally not safe. We have all seen permanent hearing loss due to cotton buds, pamella pins, and ear candling. --Common diseases such as diabetes can damage your hearing. Please discuss general health issues with your primary doctor on a regular basis. --Use sunscreen and a hat when outdoors in the sun to reduce the risk of skin cancer on you r ears. --Always wear a helmet during activities such as bicycling or skiing to avoid damage to you r brain, skull, or ears due to a fall. --Reducing your exposure to irritants such as cigarette smoke can reduce your chance of ear infections or stuffiness. --Don't use spray-on decongestants for more than two days in a row, as they can make your s ymptoms worse with overuse. We look forward to taking care of you in the future. Dr. Andres Valdivia MD Professor documented in this encounter Progress Notes Santos Valdivia MD - 08/18/2019 2:00 PM PDTFormatting of this note might be different f rom the original. Division of Otology, Neurotology, and Skull Base Surgery Department of Otolaryngology/Head and Neck Surgery [facility] Patient: Mynor Valdez Referring Provider: Errol Perkins MD Author: Santos Valdivia MD Consultation Date: 08/18/2019 CHIEF COMPLAINT: Chronic ear disease. HISTORY OF PRESENT ILLNESS: Mynor Valdez is a 49 y.o. male with a history of multiple ear surgeries, including tympa noplasty and "incomplete mastoidectomy." He has had multiple tubes. He also has a history of ear infections. He denies recent otorrhea. He had surgery on his right eardrum in 1984 and has a long histo ry of tubes. He wears hearing aids. He thinks his hearing is getting worse, but not dramatic ally. His left ear wsa better hearing but he felt a pop a while ago and since then he can't hear as well from that side. Hard to say if it's now worse than the right side. Thinks it ma y still be better on the left. He is accompanied today by his daughter. PAST MEDICAL HISTORY: Past Medical History: Diagnosis Date Anxiety Depression GERD (gastroesophageal reflux disease) HBP (high blood pressure) Headache High cholesterol Migraine Numbness and tingling JOSE Thyroid activity decreased Type 2 diabetes mellitus (HCC) PROBLEM LIST: Patient Active Problem List Diagnosis Morbid obesity with BMI of 40.0-44.9, adult ([facility]) Insulin dependent diabetes mellitus (HCC) Essential hypertension Hyperlipidemia JOSE on CPAP S/P gastric bypass Impaired intestinal absorption PAST SURGICAL HISTORY: Past Surgical History Procedure Laterality Date Ankle fracture surgery 2001 Hand surgery Left 2006 Sinus surgery 2005 Sinus surgery 2012 Lap gastric byp, and sanford-en-y gastroenterostomy w/ sanford limb 150 cm or less [facility] ALLERGIES: Allergies Allergen Reactions Actos [Pioglitazone Hcl] Headache Cephalexin Hcl Unknown Metformin Diarrhea MEDICATIONS: Current Outpatient Medications: buPROPion 75 mg oral tablet, Take 2 tablets by mouth two ti mes daily., Disp: 120 tablet, Rfl: 0 cholecalciferol (Vitamin D3) (VITAMIN D3) 2,000 unit oral capsule, Take 2 capsules by mouth once daily., Disp: 180 capsule, Rfl: 1 Cyanocobalamin-Cobamamide (B-12 PLUS) 5,000-100 mcg sublingual tablet, sublingual, Place u nder tongue., Disp: , Rfl: DULoxetine 60 mg oral capsule,delayed release(DR/EC), Take 1 capsule by mouth once daily. P lease open capsule and sprinkle contents on acidic juice or apple sauce (prefer sugar free o r low sugar), Disp: , Rfl: gabapentin 300 mg oral capsule, Take 1 capsule by mouth three times daily. Please open caps ule and empty contents into small amount of sugar free liquid or yogurt. Take entire content s via mouth., Disp: , Rfl: iron [id number] 150 mg iron-200 mg-250 mcg oral tablet, Take 5,000 mcg by mo [facility] once daily., Disp: , Rfl: LEVOMEFOLATE CALCIUM (L-METHYLFOLATE ORAL), Take 15 mcg by mouth once daily., Disp: , Rfl: levothyroxine 200 mcg oral tablet, Take 200 mcg by mouth once daily. 6 days a week per pt., Disp: , Rfl: metoprolol tartrate 100 mg oral tablet, Take 1 tablet by mouth two times daily., Disp: 60 t ablet, Rfl: 0 FAMILY HISTORY: Family History Problem Relation Diabetes Mother Thyroid Mother Obesity Mother Breast Cancer Mother Stroke Mother age mid 70's Parkinson's Disease Father Cancer Father High blood pressure Father Obesity Sister Diabetes Sister Diabetes Brother High blood pressure Brother Obesity Brother Cancer Sister Fibromyalgia Sister High blood pressure Sister Obesity Brother REVIEW OF SYSTEMS: A full 10 point review of systems was completed and is negative, except for the pertinent p ositives and negatives as noted above in the history of present illness. PHYSICAL EXAM: Constitutional: Non-toxic, no apparent distress. Face: Normal facial contour. Eyes: Extraocular movements intact. Sclera non-icteric. Ears: Examined under binocular microscopic visualization. Nose: No external nasal deformity. Constant sniffing. Neck: No adenopathy or masses. Normal range of motion. Respiratory: Unlabored. No cyanosis. Cardiovascular: Normal perfusion. No edema. Musculoskeletal: Normal muscle mass. Normal gait. Skin: No suspicious skin lesions noted on scalp, face, ears, or neck. Neuro: Normal gait. Cranial nerves: II, III, IV, : Normal range of movement. No nystagmus. VII: No facial weakness VIII: No spontaneous nystagmus. X: Voice grossly normal. XI: Shoulder motion normal. XII: Tongue motion normal. Psychiatric: Alert and oriented. Normal affect. Procedure note: Binocular microscopy Indication: Bilateral conductive hearing loss. Left: External auditory canal normal. Drum perforation anterior to the umbo, with edge of perforation right at umbo. Myringosclerosis inferiorly. Middle ear mucosa appears healthy. No clear evidence for cholesteatoma. A paper patch was placed over the perforation which he said improved his hearing on that side. Right: External auditory canal: T-tube in the canal, removed. Mild fungal elements. Drum r etracted anterior to malleus, consistent with cholesteatoma. Middle ear not visible. IMAGING: CT scan from 06/22/[facility] at [facility] reviewed and interpreted by me indicates right soft tissue density in the middle ear. AUDIOGRAM: Audiogram from 04/27/19 reviewed and interpreted by me indicates bilateral conductive hearin g loss. 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 PLAN: --Left paper patch myringoplasty performed today. Patient reported immediate improvement in hearing. This suggests that eventual tympanoplasty would be appropriate. --Plan on right cholesteatoma removal and tympanoplasty. His habitus, diabetes, and ongoin g Eustachian tube dysfunction suggest a high probability of difficulty healing and potential failure of surgery. A tube would be appropriate to place at the time of surgery. --Aggressive nasal treatment until surgery. Will start with Flonase. The problems, treatments and alternatives, and risks were discussed in detail including reji oing or worsening symptoms, hearing loss, tinnitus, vertigo/dizziness, facial nerve dysfunct ion (facial weakness, either temporary or permanent and either partial or total), and altera tion in taste. Other risks discussed included cerebrospinal fluid leakage or meningitis. The possibility of revision surgery and removal or replacement of implanted devices or prost heses was discussed. Bleeding, infection, and anesthesia were additional risks discussed. All questions were answered. Despite understanding these risks, the patient elected to proc eed with surgery. I am Amy Wagner functioning as a scribe for Santos Valdivia MD at 1:45 PM on 08/18/2019 I have reviewed and verified the above scribed note of my visit with this patient as record ed by my scribe as named above. Santos Valdivia MD Director, Cochlear Implant Program Department of Otolaryngology-Head and Neck Surgery [address], [address] [address] tel: [phone] fax: [phone] [email or web address] documented in this encounter Plan of Treatment +--------+ + + + + | Date | Type | Specialty | Care Team | Description | +--------+ + + + + | 12/15/ | Office | Pre-operative | 2, [facility] [address] | | | 2019 | Visit | Medicine | [address] | | | | | | [place] [address] | | +--------+ + + + + | 01/04/ | Procedure | Surgery | | | | 2019 | Pass | | | | +--------+ + + + + | 01/25/ | Office | Otolaryngology | Santos Valdivia, | | | 2019 | Visit | | [address] | | | | | | [address] | | | | | | [place], [place] | | | | | | [address] | | | | | | [phone] | | | | | | | | +--------+ + + + + documented as of this encounter Procedures + +--------+ + + + | Procedure Name | Priori | Date/Time | Associated Diagnosis | Comments | | | ty | | | | + +--------+ + + + | TX EAR MICROSCOPY | Routin | 08/20/2019 | Conductive hearing | | | EXAMINATION | e | 10:12 PM | loss, middle ear | | | | | PDT | 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 | | | | | | Perforation of left | | | | | | tympanic membrane | | + +--------+ + + + documented in this encounter Visit Diagnoses + + | Diagnosis | + + | Conductive hearing loss, middle ear - Primary | + + | Cholesteatoma of right ear Cholesteatoma, unspecified | + + | Perforation of left tympanic membrane Perforation of tympanic membrane, unspecified | + + documented in this encounter
--- OUTSIDE RECORDS SUMMARY | ~2019-10-18 | XMS | Encounter Summary ---
Demographics + + + | Address | [address] | | | [place] [address] | + + + | Home Phone | | + + + | Preferred Language | Unknown | + + + | Marital Status | | + + + | Mormon Affiliation | NRP | + + + | Race | White | + + + | Ethnic Group | Not or | + + + Author + + + | Author | [facility] | + + + | Organization | [facility] | + + [...] [place] | | | | | [address] | | + + + + + Care Team Providers + +------+ + | Care Extra Hand Name | Role | Phone | + +------+ + | Hemalatha Lawrence PA-C | PCP | | + +------+ + Encounter Details +--------+ + + + + | Date | Type | Department | Care Team | Description | +--------+ + + + + | 02/07/ | MyChart | Dig[facility]ive Health | Arvin Altamirano, | RE: Work | | 2018 | Encounter | [facility] [address] | MD [address] | | | | | [address] | [place], [place] | | | | | Mailcode: Center | [address] | | | | | for Health and | [phone] | | | | | Healing, [address] | | | | | | [place], [place] | | | | | | [address] | | | | | | [phone] | | | +--------+ + + + [...] Office | Pre-operative | 2, [facility] [address] | | | 2020 | Visit | Medicine | [address] | | | | | | [place] [address] | | +--------+ + + + + | 01/04/ | Procedure | Surgery | | | | 2019 | Pass | | | | +--------+ + + + + | 01/25/ | Office | Otolaryngology | Santos Valdivia, | | | 2019 | Visit | | [address] [facility] | | | | | | [address] | | | | | | [facility] [place] | | | | | | [address] | | | | | | [phone] | | | | | | | | +--------+ + + + + documented as of this encounter Visit Diagnoses Not on filedocumented in this encounter"
--- OUTSIDE RECORDS SUMMARY | ~2019-10-18 | XMS | Encounter Summary ---
Demographics + + + | Address | [address] | | | [place] [address] | + + + | Home Phone | | + + + | Preferred Language | Unknown | + + + | Marital Status | | + + + | Jainism Affiliation | NRP | + + + | Race | White | + + + | Ethnic Group | Not or | + + + Author + + + | Author | [facility] | + + + | Organization | [facility] | + + + | Address | Unknown | + + + | Phone | Unavailable | + + + Support + + + + + | Name | Relationship | Address | Phone | + + + + + | Pooja Valdez | ECON | [address] | | | | | [place] | | | | | [address] | | + + + + + Care Team Providers + +------+ + | Care Gas Charger Name | Role | Phone | + +------+ + | Hemalatha Lawrence PA-C | PCP | | + +------+ + Encounter Details +--------+ + + + + | Date | Type | Department | Care Team | Description | +--------+ + + + + | 02/04/ | Pharmacy | Outpatient Retail | | | | 2017 | Visit | [facility] | | | | | | [address] | | | | | | [place], [place] | | | | | | [address] | | | | | | [phone] | | | +--------+ + + + [...] 12/15/ | Office | Pre-operative | 2, [facility] [address] | | | 2019 | Visit | Medicine | [address] | | | | | | [place] [address] | | +--------+ + + + + [...] [place] | | | | | | [address] | | | | | | [phone] | | | | | | | | +--------+ + + + + documented as of this encounter Visit Diagnoses Not on filedocumented in this encounter"
--- OUTSIDE RECORDS SUMMARY | ~2019-10-18 | XMS | Encounter Summary ---
Demographics + + + | Address | [address] | | | [place] [address] | + + + | Home Phone | | + + + | Preferred Language | Unknown | + + + | Marital Status | | + + + | Lutheran Affiliation | NRP | + + + [...] [place] | | | | | [address] | | + + + + + Care Team Providers + +------+ + | Care Crisis Clinician Name | Role | Phone | + +------+ + | Hemalatha Lawrence PA-C | PCP | | + +------+ + Encounter Details +--------+ + + + + | Date | Type | Department | Care Team | Description | +--------+ + + + + | 07/28/ | MyChart | Dig[facility]ive Health | Arvin Altamirano, | appointments | | 2018 | Encounter | [facility] [address] | MD [address] | | | | | [address] | [place], [place] | | | | | Mailcode: Center | [address] | | | | | for Health and | [phone] | | | | | Healing, [address] | | | | | | [place], [place] | | | | | | [address] | | | | | | [phone] | | | +--------+ + + + [...] 12/15/ | Office | Pre-operative | 2, [facility] [address] | | | 2020 | Visit | Medicine | [address] | | | | | | [place] [address] | | +--------+ + + + + | 01/04/ | Procedure | Surgery | | | | 2019 | Pass | | | | +--------+ + + + + | 01/25/ | Office | Otolaryngology | Santos Valdivia, | | | 2019 | Visit | | [address] [facility] | | | | | | [address] | | | | | | [place] | | | | | | [address] | | | | | | [phone] | | | | | | | | +--------+ + + + + documented as of this encounter Visit Diagnoses Not on filedocumented in this encounter"
--- OUTSIDE RECORDS SUMMARY | ~2019-10-18 | XMS | Encounter Summary ---
Demographics + + + | Address | [address] | | | [place] [address] | + + + | Home Phone | | + + + | Preferred Language | Unknown | + + + | Marital Status | | + + + | Rastafarian Affiliation | NRP | + + + [...] [place] | | | | | [address] | | + + + + + Care Team Providers + +------+ + | Care Hogshead Mat Assembler Name | Role | Phone | + +------+ + | Hemalatha Lawrence PA-C | PCP | | + +------+ + Encounter Details +--------+ + + + + | Date | Type | Department | Care Team | Description | +--------+ + + + + | 01/31/ | MyChart | Dig[facility]ive Health | Celestina Madrigal, | RE: eating | | 2017 | Encounter | [facility] [address] | | | | | [address] | [address] | | | | | Mailcode: Center | [place], [place] | | | | | for Health and | [address] | | | | | Healing, [address] | | | | | | [place], [place] | | | | | | [address] | | | | | | [phone] | | | +--------+ + + + [...] 12/15/ | Office | Pre-operative | 2, [facility] [address] | | | 2020 | Visit | Medicine | [address] | | | | | | [place] [address] | | +--------+ + + + + | 01/04/ | Procedure | Surgery | | | | 2019 | Pass | | | | +--------+ + + + + | 01/25/ | Office | Otolaryngology | Santos Valdivia, | | | 2019 | Visit | | [address] [facility] | | | | | | [address] | | | | | | [place] | | | | | | [address] | | | | | | [phone] | | | | | | | | +--------+ + + + + documented as of this encounter Visit Diagnoses Not on filedocumented in this encounter"
--- OUTSIDE RECORDS SUMMARY | ~2019-10-18 | XMS | Encounter Summary ---
Demographics + + + | Address | [address] | | | [place] [address] | + + + | Home Phone | | + + + | Preferred Language | Unknown | + + + | Marital Status | | + + + | Anabaptism Affiliation | NRP | + + + [...] [place] | | | | | [address] | | + + + + + Care Team Providers + +------+ + | Care Basket Filler Name | Role | Phone | + +------+ + | Hemalatha Larwence PA-C | PCP | | + +------+ + Encounter Details +--------+ + + + + | Date | Type | Department | Care Team | Description | +--------+ + + + + | 01/28/ | MyChart | Dig[facility]ive [facility] | Kaylee Purcell, | faint | | 2018 | Encounter | [facility] [address] | AGACNP [address] | | | | | [address] | [place], [place] | | | | | Mailcode: Center | [address] | | | | | for Health and | [phone] | | | | | Healing, [address] | | | | | | [place], [place] | | | | | | [address] | | | | | | [phone] | | | +--------+ + + + [...] 12/15/ | Office | Pre-operative | 2, [facility] [address] | | | 2020 | Visit | Medicine | [address] | | | | | | [place] [address] | | +--------+ + + + + | 01/04/ | Procedure | Surgery | | | | 2019 | Pass | | | | +--------+ + + + + | 01/25/ | Office | Otolaryngology | Santos Valdivia, | | | 2019 | Visit | | [address] [facility] | | | | | | [address] | | | | | | [place] | | | | | | [address] | | | | | | [phone] | | | | | | | | +--------+ + + + + documented as of this encounter Visit Diagnoses Not on filedocumented in this encounter"
--- OUTSIDE RECORDS SUMMARY | ~2019-10-18 | XMS | Encounter Summary ---
Demographics + + + | Address | [address] | | | [place] [address] | + + + | Home Phone [...] + + + | Author | [facility] | + + + | Organization | [facility] | + + + | Address | Unknown | + + + | Phone | Unavailable | + + + Support + + + + + | Name | Relationship | Address | Phone | + + + + + | Pooja Valdez | ECON | [address] | | | | | [place] | | | | | [address] | | + + + + + Care Team Providers + +------+ + | Care Force Dispatcher Name | Role | Phone | + [...] + + + + | 05/25/ | Hospital | [facility] | John Rainey, | | | 2018 | Encounter | [address] | [address] | | | | | Ave Mailcode: [facility] | [address] | | | | | [facility] | [place], [place] | | | | | Health and Healing, | [address] | | | | | [place] [address] | [phone] | | | | | [place], [place] | | | | | | [address] | | | | | | [phone] | | | +--------+ + + + [...] + + + | Blood Pressure | 144/96 | 05/25/2018 11:30 AM | | | | | PDT | | + + + + + | Pulse | 68 | 05/25/2018 11:30 AM | | | | | PDT | | + + + + + | Temperature | 36.8 C (98.3 F) | 05/25/2018 9:31 AM | | | | | PDT | | + + + + + | Respiratory Rate | 15 | 05/25/2018 11:30 AM | | | | | PDT | | + + + + + | Oxygen Saturation | 100% | 05/25/2018 11:45 AM | | | | | PDT | | + + + + + | Inhaled Oxygen | - | - | | | Concentration | | | | + + + + + | Weight | 111.1 kg (245 lb) | 05/25/2018 9:31 AM | | | | | PDT | | + + + + + | Height | - | - | | + + + + + | Body Mass Index | 31.46 | 05/13/2018 10:16 AM | | | | | PDT [...] as of this encounter Discharge Instructions Instructions Nessa Duvall, LAST - 05/25/2018Home Care Instructions after EGD (Upper Endos copy) You may resume your normal diet and [...] hours or on weekends and holiday Hospital Turret Punch Press Operator toll free [phone]. [phone] and have the GI doctor public health nutritionist paged. The provider who performed your procedure is: Dr. Rainey Results of your EGD: Dilation was performed at the stricture. Follow up Appointments with: Your primary care provider as needed. Your primary care [...] weeks please call for your results . documented in this encounter Medications at Time [...] | | 0 | | | | gly,[id number] | mouth once daily. | | | [...] documented as of this encounter Progress Notes John Rainey MD - 05/25/2018 10:35 AM PDTFormatting of this note might be different f rom the original. PRE PROCEDURE NOTE: MR# [id number] Subjective: Mynor Valdez is a 48 y.o. 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 Last dilation about 3 weeks ago to 18 mm helped a lot, b ut still occasional vomiting. Patient History Reviewed Medications reviewed Allergies: Allergies as of 05/05/2018 - Fully Reviewed 05/04/2018 Allergen Reaction Noted Actos [pioglitazone hcl] Headache 05/13/2017 Cephalexin hcl Unknown 05/13/2017 Metformin Diarrhea 05/13/2017 Pt NPO for 6 hrs. ROS: All others negative. Objective: Vital Signs: BP 130/84 | Pulse 63 | Temp 36.8 C (98.3 F) | RR 13 | Wt 111.1 kg (245 lb) | SpO2 100% | BMI 31.46 kg/(m^2) Neuro: Patient oriented X3. Mental status clear and intact Mallampati Score: II Neck negative Respiratory: Lungs clear to auscultation bilaterally with good air exchange Cardiovascular: carotid pulse is wnl; no bruit Abdomen: soft, normal active bowel sounds, nontender, no masses, no organomegaly Impression Patient deemed appropriate candidate for planned procedure and sedation. ASA:2 Plan Proceed with EGD PARQ held and all questions addressed. Consent obtained. See procedure note 05/25/2018 documented in this encounter Plan of Treatment +--------+ + + + + | Date | Type | Specialty | Care Team | Description | +--------+ + + + + | 12/15/ | Office | Pre-operative | 2, [facility] [address] | | | 2019 | Visit | Medicine | [address] | | | | | | [place] [address] | | +--------+ + + + + [...] Rd | | | | | | [place], [place] | | | | | | [address] | | | | | | [phone] | | | | | | | | +--------+ + + + + documented as of this encounter Procedures + +--------+ + + + | Procedure Name | Priori | Date/Time | Associated Diagnosis | Comments | | | ty | | | | + +--------+ + + + | EGD | Routin | 05/25/2018 | Anastomotic | Results for this | | | e | 10:28 AM | stricture of | procedure are in the | | | | PDT | gastrojejunostomy | results section. | + +--------+ + + + documented in this encounter Results EGD (05/25/2018 10:28 AM PDT) + + | Specimen | + + | | + + + +--------- -----+ | Narrative | Performe d At | + +--------- -----+ | MRN: | [facility] | | [id number] Date: 05/25/2018Patient Name: Mynor Booth #: | ENDOSCOP Y | | [id number] of : 1970CSN: [id number] Type: | | | AmbulatoryRoom: [facility] 2Procedure: Upper GI | | | endoscopyIndications: Therapeutic procedure, dilation of | | | known surgical G-J anastomotic | | | stricture - patient denies NSAIDs or smokingProviders: | | | JOHN RAINEY MD (Doctor), NESSA DUVALL RN | | | (Nurse), JUAN BABCOCK, Coin Machine Servicer Repairer | | | (Coin Machine Servicer Repairer)Referring MD: CLAIR DOWNING, | | | MDRequesting [...] The Olympus GIF-H190 Gastroscope | | | #[id number] was introduced through the | | | [...] truma (contact bleeding). The | | | omhreuph-nl-prgffkk limb was not examined. A TTS dilator [...] endoscopy with dilation as | | | needed.JOHN RAINEY MD05/25/2018 11:13:04 AMThis report has been | | | signed electronically.Number of Addenda: 0Note Initiated On: 05/25/2018 | | | 10:28 AM | | | - Continue present medications. | | | - Repeat upper endoscopy with dilation as needed. | | |JOHN RAINEY MD | | |05/25/2018 11:13:04 AM | [...] + + | Anastomotic stricture of gastrojejunostomy | + + documented in this encounter Administered Medications + +--------+ +--------+------+------+ | Medication Order | MAR | Action | Dose | Rate | Site | | | Action | Date | | | | + +--------+ +--------+------+------+ | fentaNYL (SUBLIMAZE) injection | Given | 05/25/20 | 50 mcg | | | | intravenous, INTRAPROCEDURE PRN, | | 18 10:35 | | | | | Starting Wed05/25/18 at 1035, | | AM PDT | | | | | Until Wed05/25/18 at 1035 | | | | | | + +--------+ +--------+------+------+ +---+---+ | | | +---+---+ + +-------+ +--------+---+---+ | fentaNYL (SUBLIMAZE) injection | Given | 05/25/20 | 50 mcg | | | | intravenous, INTRAPROCEDURE PRN, | | 18 10:37 | | | | | Starting Wed05/25/18 at 1037, | | AM PDT | | | | | Until Wed05/25/18 at 1037 | | | | | | + +-------+ +--------+---+---+ +---+---+ | | | +---+---+ + +-------+ +--------+---+---+ | fentaNYL (SUBLIMAZE) injection | Given | 05/25/20 | 25 mcg | | | | intravenous, INTRAPROCEDURE PRN, | | 18 10:41 | | | | | Starting Wed05/25/18 at 1041, | | AM PDT | | | | | Until Wed05/25/18 at 1041 | | | | | | + +-------+ +--------+---+---+ +---+---+ | | | +---+---+ + +-------+ +--------+---+---+ | fentaNYL (SUBLIMAZE) injection | Given | 05/25/20 | 25 mcg | | | | intravenous, INTRAPROCEDURE PRN, | | 18 10:44 | | | | | Starting 05/25/18 at 1044, | | AM PDT | | | | | Until Wed05/25/18 at 1044 | | | | | | + +-------+ +--------+---+---+ +---+---+ | | | +---+---+ + +-------+ +--------+---+---+ | fentaNYL (SUBLIMAZE) injection | Given | 05/25/20 | 25 mcg | | | | intravenous, INTRAPROCEDURE PRN, | | 18 10:46 | | | | | Starting Wed05/25/18 at 1046, | | AM PDT | | | | | Until Wed05/25/18 at 1046 | | | | | | + +-------+ +--------+---+---+ + +---+ | | | + +---+ | lidocaine viscous (XYLOCAINE | | | VISCOUS) 2 % mucosal solution 15 | | | mL 15 mL, oral, INTRAPROCEDURE | | | PRN, Starting Wed05/25/18 at | | | 0916, Until Wed05/25/18 at 1755, | | | sore oropharynx | | + +---+ | | | + +---+ + +-------+ +------+---+---+ | midazolam (PF) (VERSED) | Given | 05/25/20 | 2 mg | | | | injection INTRAPROCEDURE PRN, | | 18 10:35 | | | | | Starting Wed05/25/18 at 1035, | | AM PDT | | | | | Until Wed05/25/18 at 1035 | | | | | | + +-------+ +------+---+---+ +---+---+ | | | +---+---+ + +-------+ +------+---+---+ | midazolam (PF) (VERSED) | Given | 05/25/20 | 2 mg | | | | injection INTRAPROCEDURE PRN, | | 18 10:37 | | | | | Starting Wed05/25/18 at 1037, | | AM PDT | | | | | Until Wed05/25/18 at 1037 | | | | | | + +-------+ +------+---+---+ +---+---+ | | | +---+---+ + +-------+ +------+---+---+ | midazolam (PF) (VERSED) | Given | 05/25/20 | 1 mg | | | | injection INTRAPROCEDURE PRN, | | 18 10:41 | | | | | Starting Wed05/25/18 at 1041, | | AM PDT | | | | | Until Wed05/25/18 at 1041 | | | | | | + +-------+ +------+---+---+ +---+---+ | | | +---+---+ + +-------+ +------+---+---+ | midazolam (PF) (VERSED) | Given | 05/25/20 | 1 mg | | | | injection INTRAPROCEDURE PRN, | | 18 10:44 | | | | | Starting Wed05/25/18 at 1044, | | AM PDT | | | | | Until Wed05/25/18 at 1044 | | | | | | + +-------+ +------+---+---+ +---+---+ | | | +---+---+ + +-------+ +------+---+---+ | midazolam (PF) (VERSED) | Given | 05/25/20 | 1 mg | | | | injection INTRAPROCEDURE PRN, | | 18 10:46 | | | | | Starting Wed05/25/18 at 1046, | | AM PDT | | | | | Until Wed05/25/18 at 1046 | | | | | | + +-------+ +------+---+---+ + +---+ | | | + +---+ | simethicone (MYLICON) | | | suspension 3.333 mg 3.333 mg | | | (rounded from 3.3333 mg = 1 | | | drop), oral, INTRAPROCEDURE PRN, | | | Starting Wed05/25/18 at 0916, | | | Until Wed05/25/18 at 1755, | | | bloating, gas bubbles in | | | endoscope | | + +---+ | | | + +---+ + +---------+ + + +---+ | sodium chloride 0.9 % (NS) IV | New Bag | 05/25/20 | 50 mL/hr | 50 mL/hr | | | infusion 50 mL/hr, intravenous, | | 18 10:15 | | | | | CONTINUOUS, Starting Wed05/25/18 | | AM PDT | | | | | at 1000, Until Wed05/25/18 at | | | | | | | 1755 | | | | | | + +---------+ + + +---+ +---+---+ | | | +---+---+ documented in this encounter"
--- OUTSIDE RECORDS SUMMARY | ~2019-10-18 | XMS | Encounter Summary ---
Demographics + + + | Address | [address] | | | [place] [address] | + + + | Home Phone [...] [place] | | | | | [address] | | + + + + + Care Team Providers + +------+ + | Care Property Underwriter Name | Role | Phone | + +------+ + PCP | Unavailable | + +------+ + Encounter Details +--------+ + + + + | Date | Type | Department | Care Team | Description | +--------+ + + + + | 02/20/ | Inpatient | | Report, Inpatient | InPt Prog Notes | | 2006 | Progress | | Consultation | | | | Notes-Trans | | | | | | cribed | | [...] as of this encounter Progress Notes Interface, Taxicab Starter In - 05/01/2006 2:07 AM PDT [id number] 02/19/2006 02/20/2006 [id number] DELMA PAULSON Consulting Physician: Lorenzo Ramesh M.D. Consultation Date: 02/20/2006 Referring Physician: Luis Calixto M.D. Reason For Requested Consultation: Suspected meningitis. History: Please see the detailed note written by medical student from Infectious Diseases on February 19, 2006. I reviewed the history, and I agree with the medical student's history as obtained. Briefly, this is a 35-year-old man with a history of recurrent otitis media and sinusitis who has previously been treated with Augmentin for sinusitis and subsequently was referred for sinus surgery which he underwent in the beginning of February 2006. He had headache postoperatively after being discharged home and returned, and was found to have intraparenchymal hemorrhage. He was transferred to [facility] and admitted here. He was given antibiotics and steroids. He was discharged home but then returned with worsening headache. He was brought back to [facility] and a lumbar puncture was performed, this showed a glucose of 63 curtaining 175, white cell count was 125, 64% lymphs, 18% polys, and 7000 red blood cells. Gram stain showed no organisms, and culture is negative. He was admitted to Medicine and placed on ceftazidime, vancomycin, and Flagyl. He did receive some ceftriaxone at admission. Past Medical History: Hypertension. There is no previous history of diabetes. Past Surgical History: He has had left hand surgery and an ankle repair. Social History: He lives in [place] with his and 2 children. 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 Allergies: He has no drug allergies. Habits: He does not smoke or drink alcohol. Physical Examination: General: He is an obese man in no acute distress. Affect is somewhat flat. Vital Signs: The temperature is 37.5, pulse 63, and blood pressure 118/60. HEENT: No scleral icterus. Pupils are equal, round, and reactive. There is no proptosis. He has some pain with eye movement, but extraocular muscles are intact. There is no nasal discharge. Heart and Lungs: Normal. Abdomen: Obese and nontender. Extremities: Normal. Neurologic: Nonfocal. Laboratory Data: White cell count 14,000, platelet count 197,000, creatinine 1.0. Repeat lumbar puncture shows a glucose of 100, less than 1 white cell, and red cell count 29,500. I reviewed the radiologic scans with Neuroradiology fellow, it appears to be a right inferior frontal hemorrhagic contusion and extraaxial hemorrhage extending to the tentorium. There is persistent pansinus opacification. Consultation Findings and Recommendations: This patient appears to have had intraparenchymal hemorrhage following trauma related to surgery. There is no clear evidence of postoperative meninigitis or brain abscess. It is reasonable to treat him for a defined course of sinusitis, but I do not believe that treatment for bacterial meningitis is necessary at this point. I would refer him to ENT and Neurosurgery regarding management of the postsurgical hemorrhage. We suggested using moxifloxacin orally for 3 to 4 weeks, discontinuing IV antibiotics at this time. Lorenzo Ramesh M.D. JOHANNA / [id number] / [id number] / [id number] / cc: Luis Calixto M.D. Electronically signed by Lorenzo Ramesh 04-30-2006 02:51:01 PM documented i n this encounter Plan of Treatment +--------+ + + + + | Date | Type | Specialty | Care Team | Description | +--------+ + + + + | 12/15/ | Office | Pre-operative | 2, [facility] [address] | | | 2020 | Visit | Medicine | [address] | | | | | | [place] [address] | | +--------+ + + + + [...] Rd | | | | | | [place] | | | | | | [address] | | | | | | [phone] | | | | | | | | +--------+ + + + + documented as of this encounter Visit Diagnoses Not on filedocumented in this encounter"
--- OUTSIDE RECORDS SUMMARY | ~2019-10-18 | XMS | Encounter Summary ---
Demographics + + + | Address | [address] | | | [place] [address] | + + + | Home Phone | | + + + | Preferred Language | Unknown | + + + | Marital Status | | + + + | Adventist Affiliation | NRP | + + + | Race | White | + + + | Ethnic Group | Not or | + + + Author + + + | Author | [facility] | + + + | Organization | [facility] | + + + | Address | Unknown | + + + | Phone | Unavailable | + + + Support + + + + + | Name | Relationship | Address | Phone | + + + + + | Pooja Valdez | ECON | [address] | | | | | [place] | | | | | [address] | | + + + + + Care Team Providers + +------+ + | Care Head Of Partner Development Name | Role | Phone | + +------+ + | Hemalatha Lawrence PA-C | PCP | | + +------+ + Reason for Visit + + + | Reason | Comments | + + + | Disability Paperwork | | + + + Encounter Details +--------+ + + + + | Date | Type | Department | Care Team | Description | +--------+ + + + + | 01/28/ | Telephone | Digestive Health | Arvin Altamirano, | Disability Paperwork | | 2018 | | Center [address] | MD [address] | | | | | Ave Mailcode: [address] | [place], [place] | | | | | [facility] | [address] | | | | | and Healing, | [phone] | | | | | [facility] | | | | | | Floor [facility] [place] | | | | | | [address] | | | | | | [phone] | | | +--------+ + + + [...] 12/15/ | Office | Pre-operative | 2 [facility] [address] | | | 2019 | Visit | Medicine | [address] | | | | | | [place] [address] | | +--------+ + + + + [...] Rd | | | | | | [place], [place] | | | | | | [address] | | | | | | [phone] | | | | | | | | +--------+ + + + + documented as of this encounter Visit Diagnoses Not on filedocumented in this encounter"
--- OUTSIDE RECORDS SUMMARY | ~2019-10-18 | XMS | Encounter Summary ---
Demographics + + + | Address | [address] | | | [place] [address] | + + + | Home Phone | | + + + | Preferred Language | Unknown | + + + | Marital Status | | + + + | Protestant Affiliation | NRP | + + + | Race | White | + + + | Ethnic Group | Not or | + + + Author + + + | Author | [facility] | + + + | Organization | [facility] | + + + | Address | Unknown | + + + | Phone | Unavailable | + + + Support + + + + + | Name | Relationship | Address | Phone | + + + + + | Pooja Valdez | ECON | [address] | | | | | [place] | | | | | [address] | | + + + + + Care Team Providers + +------+ + | Care Senior Structural Engineer Name | Role | Phone | + +------+ + | Hemalatha Lawrence PA-C | PCP | | + +------+ + Encounter Details +--------+ + + + + | Date | Type | Department | Care Team | Description | +--------+ + + + + | 11/23/ | Abstract | Digestive Health | Clinic, Surgery | | | 2018 | | [facility] [address] | | | | | | [address] | | | | | | Mailcode: Center | | | | | | for Health and | | | | | | Healing, [address] | | | | | | [place], [place] | | | | | | [address] | | | | | | [phone] | | | +--------+ + + + [...] 12/15/ | Office | Pre-operative | 2, [facility] [address] | | 2019 | Visit | Medicine | [address] | | | | | | [place] [address] | | +--------+ + + + + [...] Rd | | | | | | [facility] [place] | | | | | | [address] | | | | | | [phone] | | | | | | | | +--------+ + + + + documented as of this encounter Visit Diagnoses Not on filedocumented in this encounter"
--- OUTSIDE RECORDS SUMMARY | ~2019-10-18 | XMS | Encounter Summary ---
Demographics + + + | Address | [address] | | | [place] [address] | + + + | Home Phone | | + + + | Preferred Language | Unknown | + + + | Marital Status | | + + + | Jew Affiliation | NRP | + + + | Race | White | + + + | Ethnic Group | Not or | + + + Author + + + | Author | [facility] | + + + | Organization | [facility] | + + + | Address | Unknown | + + + | Phone | Unavailable | + + + Support + + + + + | Name | Relationship | Address | Phone | + + + + + | Pooja Valdez | ECON | [address] | | | | | [place] | | | | | [address] | | + + + + + Care Team Providers + +------+ + | Care Bus Trolley And Taxi Instructor Name | Role | Phone | + +------+ + | Rian [place] MD | PCP | | + +------+ + Encounter Details +--------+ + + + + | Date | Type | Department | Care Team | Description | +--------+ + + + + | 10/29/ | Document-Sc | Health Information | Unknown . | | | 2017 | anned | Services [address] | | | | | | [address] | | | | | | Mailcode: OP17A | | | | | | [facility] | | | | | | [place], [place] | | | | | | [address] | | | | | | [phone] | | | +--------+ + + + [...] | 2, [facility] [address] | | | 2019 | Visit | Medicine | [address] | | | | | | [place] [address] | | +--------+ + + + + | 01/04/ | Procedure | Surgery | | | | 2019 | Pass | | | | +--------+ + + + + | 01/25/ | Office | Otolaryngology | Santos Valdivia, | | | 2019 | Visit | | [address] | | | | | | [address] | | | | | | [place], [place] | | | | | | [address] | | | | | | [phone] | | | | | | | | +--------+ + + + + documented as of this encounter Procedures + +--------+ + + + | Procedure Name | Priori | Date/Time | Associated Diagnosis | Comments | | | ty | | | | + +--------+ + + + | LAB REPORTS | | 10/29/2017 | | Results for this | | | | 12:00 AM | | procedure are in the | | | | PST | | results section. | + +--------+ + + + documented in this encounter Results LAB REPORTS (10/29/2017 12:00 AM PST) + + + | Narrative | Performed At | + + + | | | + + + documented in this encounter Visit Diagnoses Not on filedocumented in this encounter"
--- OUTSIDE RECORDS SUMMARY | ~2019-10-18 | XMS | Encounter Summary ---
Demographics + + + | Address | [address] | | | [place] [address] | + + + | Home Phone | | + + + | Preferred Language | Unknown | + + + | Marital Status | | + + + | Uatsdin Affiliation | NRP | + + + | Race | White | + + + | Ethnic Group | Not or | + + + Author + + + | Author | [facility] | + + + | Organization | [facility] | + + + | Address | Unknown | + + + | Phone | Unavailable | + + + Support + + + + + | Name | Relationship | Address | Phone | + + + + + | Pooja Valdez | ECON | [address] | | | | | [place] | | | | | [address] | | + + + + + Care Team Providers + +------+ + | Care Television News Photographer Name | Role | Phone | + +------+ + | Hemalatha Lawrence PA-C | PCP | | + +------+ + Encounter Details +--------+ + + + + | Date | Type | Department | Care Team | Description | +--------+ + + + + | 01/16/ | Access Registrar | LAB CORE [address] | Bonny Souza MD | Pre-op testing | | 2018 | | [address] | [address] | (Primary Dx) | | | | [place], [place] | [address] | | | | | [address] | [place], [place] | | | | | [phone] | [address] | | | | | | [phone] | | | | | | | [...] 12/15/ | Office | Pre-operative | 2, [facility] [address] | | | 2019 | Visit | Medicine | [address] | | | | | | [place] [address] | | +--------+ + + + + [...] Rd | | | | | | [place], [place] | | | | | | [address] | | | | | | [phone] | | | | | | | | +--------+ + + + + documented as of this encounter Procedures + +--------+ + + + | Procedure Name | Priori | Date/Time | Associated Diagnosis | Comments | | | ty | | | | + +--------+ + + + | CONFIRMATORY ABO/RH | Routin | 01/17/2018 | Pre-op testing | Results for this | | | e | 6:46 AM | | procedure are in the | | | | PDT | | results section. | + +--------+ + + + documented in this encounter Results CONFIRMATORY ABO/RH (01/17/2018 6:46 AM PDT) + + + + + + | Component | Value | Ref Range | Performed | Pathologist | | | | | At | Signature | + + + + + + | ABO Group | A | | [facility] | | | | | | LABORATORY | | | | | | SERVICES, | | | | | | TRANSFUSION | | | | | | MEDICINE | | + + + + + + | Rh Type | Positive | | [facility] | | | | | | LABORATORY | | | | | | SERVICES, | | | | | | TRANSFUSION | | | | | | MEDICINE | | + + + + + + + + | Specimen | + + | Blood - Blood | | (substance) | + + + + + + + | Performing | Address | City/State/Zipcode | Phone Number | | Organization | | | | + + + + + | [facility] | [address] | [place] [address] | | | SERVICES, | [address] | | | | TRANSFUSION MEDICINE | | | | + + + + + documented in this encounter Visit Diagnoses + + | Diagnosis | + + | Pre-op testing - Primary Preoperative examination, unspecified | + + documented in this encounter"
--- OUTSIDE RECORDS SUMMARY | ~2019-10-18 | XMS | Encounter Summary ---
Demographics + + + | Address | [address] [facility] | | | [place] [address] | + + + | Home Phone | | + + + | Preferred Language | Unknown | + + + | Marital Status | | + + + | Congregation Affiliation | NRP | + + + | Race | White | + + + | Ethnic Group | Not or | + + + Author + + + | Author | [facility] | + + + | Organization | [facility] | + + + | Address | Unknown | + + + | Phone | Unavailable | + + + Support + + + + + | Name | Relationship | Address | Phone | + + + + + | Pooja Valdez | ECON | [address] | | | | | [place] | | | | | [address] | | + + + + + Care Team Providers + +------+ + | Care Applications Development Consultant Name | Role | Phone | + +------+ + | Hemalatha Lawrence PA-C | PCP | | + +------+ + Encounter Details +--------+ + + + + | Date | Type | Department | Care Team | Description | +--------+ + + + + | 01/19/ | Pharmacy | Specialty Pharmacy | | | | 2017 | Visit | Services [address] | | | | | | [address] | | | | | | [place], [place] | | | | | | [address] | | | | | | [phone] | | | +--------+ + + + [...] | Office | Pre-operative | 2, [facility] [address] | | | 2019 | Visit | Medicine | [address] | | | | | | [place] [address] | | +--------+ + + + + [...] [place] | | | | | | [address] | | | | | | [phone] | | | | | | | | +--------+ + + + + documented as of this encounter Visit Diagnoses Not on filedocumented in this encounter"
--- OUTSIDE RECORDS SUMMARY | ~2019-10-18 | XMS | Encounter Summary ---
Demographics + + + | Address | [address] | | | [place] [address] | + + + | Home Phone | | + + + | Preferred Language | Unknown | + + + | Marital Status | | + + + | Quaker Affiliation | NRP | + + + [...] [place] | | | | | [address] | | + + + + + Care Team Providers + +------+ + | Care Supervisor Hairspring Fabrication Name | Role | Phone | + +------+ + | Rian [place] MD | PCP | | + +------+ + Reason for Referral Physical Therapy (Routine) +--------+--------+ + + + + | Status | Reason | Specialty | Diagnoses / | Referred By | Referred To | | | | | Procedures | Contact | Contact | +--------+--------+ + + + + | Closed | | Physical | Diagnoses | Wallace | Wayne [facility] | | | | Therapy | Pre-op | DANIEL Hernandez | [address] | | | | | evaluation | [address] | | | | | Morbid | [address] | Mailcode: | | | | | obesity, | [place], [place] | [facility] | | | | | unspecified | [address] | for Health | | | | | obesity type | Phone: | and Healing, | | | | | ([facility]) | [phone] | Building 1, | | | | | Procedures | Fax: | [address]St Floor | | | | | PHYSICAL | [phone] | [place], [place] | | | | | THERAPY | | [address] | | | | | REFERRAL | | Phone: | | | | | | | [phone] | | | | | | | Fax: | | | | | | | [phone] | +--------+--------+ + + + + Encounter Details +--------+ + + + + | Date | Type | Department | Care Team | Description | +--------+ + + + + | 06/15/ | Wire Mesh Knitter | Digestive Health | Mary Gonsalez, | Pre-op evaluation | | 2017 | | [facility] [address] | ACNP [address] | (Primary Dx); Morbid | | | | [address] | Ave [facility], [place] | obesity, | | | | Mailcode: Center | [address] | unspecified obesity | | | | for Health and | [phone] | type (HCC) | | | | [facility] 2 | | | | | | [place], [place] | | | | | | [address] | | | | | | | | | +--------+ + + + + Social History + +-------+ +--------+------+ | Tobacco Use | Types | Packs/Day | Years | Date | | | | | Used | | + +-------+ +--------+------+ | Former Smoker | | 0.75 | 6 | | + +-------+ +--------+------+ + + | Comments: quit 23 years [...] | Office | Pre-operative | 2, [facility] [address] | | 2019 | Visit | Medicine | [address] | | | | | | [place] [address] | | +--------+ + + + + | 01/04/ | Procedure | Surgery | | | | 2020 | Pass | | | | +--------+ + + + + | 01/25/ | Office | Otolaryngology | Santos Valdivia | | | 2019 | Visit | | [address] | | | | | | [address] | | | | | | [place], [place] | | | | | | [address] | | | | | | [phone] | | | | | | | | +--------+ + + + + documented as of this encounter Visit Diagnoses + + | Diagnosis | + + | Pre-op evaluation - Primary Preoperative examination, unspecified | + + | Morbid obesity, unspecified obesity type (HCC) | + + documented in this encounter"
--- OUTSIDE RECORDS SUMMARY | ~2019-10-18 | XMS | Encounter Summary ---
Demographics + + + | Address | [address] [facility] | | | [place] [address] | + + + | Home Phone | | + + + | Preferred Language | Unknown | + + + | Marital Status | | + + + | Restoration Affiliation | NRP | + + + | Race | White | + + + | Ethnic Group | Not or | + + + Author + + + | Author | [facility] | + + + | Organization | [facility] | + + + | Address | Unknown | + + + | Phone | Unavailable | + + + Support + + + + + | Name | Relationship | Address | Phone | + + + + + | Pooja Valdez | ECON | [address] | | | | | [place] | | | | | [address] | | + + + + + Care Team Providers + +------+ + | Care In Tube Conversion Technician Name | Role | Phone | + +------+ + | Hemalatha Lawrence PA-C | PCP | | + +------+ + Encounter Details +--------+ + + + + | Date | Type | Department | Care Team | Description | +--------+ + + + + | 04/22/ | Inside | [facility] at [facility] | Judy Gonzalez MD | | | 2018 | Referral | [address] | [address] | | | | Order | [address] Mailcode: | [place], [place] | | | | | [facility] | [address] | | | | | Health and Healing, | [phone] | | | | | Building 2 | | | | | | [place], [place] | | | | | | [address] | | | | | | [phone] | | | +--------+ + + + [...] 12/15/ | Office | Pre-operative | 2, [facility] [address] | | | 2020 | Visit | Medicine | [address] | | | | | | [place] [address] | | +--------+ + + + + | 01/04/ | Procedure | Surgery | | | | 2019 | Pass | | | | +--------+ + + + + | 01/25/ | Office | Otolaryngology | Santos Valdivia, | | | 2019 | Visit | | [address] [facility] | | | | | | [address] | | | | | | [place], [place] | | | | | | [address] | | | | | | [phone] | | | | | | | | +--------+ + + + + documented as of this encounter Results EGLiu (05/04/2018 9:11 AM PDT) + + | Specimen | + + | | + + + +--- + | Narrative | Pe rformed At | + +--- + | MRN: | [facility] | | [id number] Date: 05/04/2018Patient Name: Mynor Booth #: | EN DOSCOPY | | [id number] of : 1970CSN: [id number] Type: | | | AmbulatoryRoom: GI 2Procedure: Upper GI | | | endoscopyIndications: Dysphagia; s/p RYGB in 01/23 with | | | anastomotic stricture s/p EGD dil on | | | 04/21/18 with improvement x 1 weekProviders: CLAIR Ferreira | | | MD CHANG (Doctor), BLU GANDHI RN | | | (Nurse), AVERY FOX, Deckhand Tuna Boat (Deckhand Tuna Boat)Referring MD: | | | CHANEL LERNER, MDRequesting [...] The | | | Olympus GIF-[id number] Gastroscope #[id number] was | | | introduced through the [...] | | 0Note Initiated On: 05/04/2018 9:11 [facility] Letter to: HEMALATHA Ferreira | | | [...]
--- OUTSIDE RECORDS SUMMARY | ~2019-10-18 | XMS | Encounter Summary ---
Demographics + + + | Address | [address] | | | [place] [address] | + + + | Home Phone [...] [place] | | | | | [address] | | + + + + + Care Team Providers + +------+ + | Care Records Supervisor Name | Role | Phone | [...] | | | [address] | [place], [place] | | | | | Mailcode: Center | [address] | | | | | for Health and | | | | | | [facility] 2 | | | | | | [place], [place] | | | | | | [address] | | | | | | | [...] PDTCan wean off omeprazole. Start taking it wmdjj-wzjee-brx for 2 wks. If you have no heartburn, take it twice a week for another 2 wks and then stop the omeprazole. Please visit with our Social Work Program Coordinator (RD) for instructions about your Bariatric diet, assistance with calorie counts, tips and tricks for working with your diet restrictions, an d recipes after bariatric surgery. Daily yogurt; even just 1 tablespoon twice a day will provide enough probiotics to optimize digestion. Try to use a high-quality, probiotic-dense yogurt (eg Pinky's, [place], Lif eway Kefir, Fisheries Technical Officer Vicente's Georgian Yogurt). Remember to chew your food well, [...] to the healing stomach. There are also halfway complications of poor wound healing and gastric [...] ARVIN ALTAMIRANO MD. Division of Bariatric Surgery [facility] | [address] [address] | [place], [place] | [address] | irisha Espitia - 11:00 AM PDT [...] signed in clinic today . PLAN: 1. Appeals Examiner visit today, may advance diet as tolerated [...] 12/15/ | Office | Pre-operative | 2, [facility] [address] | | | 2019 | Visit | Medicine | [address] | | | | | | [place] [address] | | +--------+ + + + + [...] Rd | | | | | | [place], [place] | | | | | | [address] | | | | | | [phone] | | | | | | | | +--------+ + + + + documented as of this encounter Visit Diagnoses + + | Diagnosis | + + | Aftercare following surgery - Primary Encounter for other specified aftercare | + + documented in this encounter
--- OUTSIDE RECORDS SUMMARY | ~2019-10-18 | XMS | Encounter Summary ---
Demographics + + + | Address | [address] | | | [place] [address] | + + + | Home Phone | | + + + | Preferred Language | Unknown | + + + | Marital Status | | + + + | Gnosticism Affiliation | NRP | + + + [...] [place] | | | | | [address] | | + + + + + Care Team Providers + +------+ + | Care Tool Profiling Machine Set Up Operator Name | Role | Phone | [...] as of this encounter Progress Notes Interface, Tube Depatcher In - 05/01/2006 2:07 AM PDT [id number] 02/19/2006 02/20/2006 [id number] DELMA PAULSON Consulting Physician: Lorenzo Ramesh M.D. [...] have intraparenchymal hemorrhage. He was transferred to [facility] and admitted here. He was given antibiotics and steroids. He was discharged home but then returned with worsening headache. He was brought back to [facility] and a lumbar puncture was performed, this [...] ankle repair. Social History: He lives in [place] with his and 2 children. He works [...] this time. Lorenzo Ramesh M.D. JOHANNA / [id number] / [id number] / [id number] / cc: Luis Calixto M.D. Electronically signed by Lorenzo Ramesh 04-30-2006 02:51:01 PM documented i n this encounter Plan of Treatment +--------+ + + + + | Date | Type | Specialty | Care Team | Description | +--------+ + + + + | 12/15/ | Office | Pre-operative | 2, [facility] [address] | | | 2020 | Visit | Medicine | [address] | | | | | | [place] [id number] | | +--------+ + + + + [...] Rd | | | | | | [place] | | | | | | [address] | | | | | | [phone] | | | | | | | | +--------+ + + + + documented as of this encounter Visit Diagnoses Not on filedocumented in this encounter"
--- OUTSIDE RECORDS SUMMARY | ~2019-10-18 | XMS | Encounter Summary ---
Demographics + + + | Address | [address] | | | [place] [address] | + + + | Home Phone | | + + + | Preferred Language | Unknown | + + + | Marital Status | | + + + | Lutheran Affiliation | NRP | + + + | Race | White | + + + | Ethnic Group | Not or | + + + Author + + + | Author | [facility] | + + + | Organization | [facility] | + + + | Address | Unknown | + + + | Phone | Unavailable | + + + Support + + + + + | Name | Relationship | Address | Phone | + + + + + | Pooja Valdez | ECON | [address] | | | | | [place] | | | | | [address] | | + + + + + Care Team Providers + +------+ + | Care Neurology Physician Name | Role | Phone | + +------+ + | Hemalatha Lawrence PA-C | PCP | | + +------+ + Encounter Details +--------+ + + + + | Date | Type | Department | Care Team | Description | +--------+ + + + + | 01/10/ | Documentati | Digestive Health | Patti Nath, | | | 2018 | on | [facility] [address] | ACNP [address] | | | | | [address] | [facility] [place] | | | | | Mailcode: Center | [address] | | | | | for Health and | [phone] | | | | | Healing, Building 2 | | | | | | [place], [place] | | | | | | [address] | | | | | | [phone] | | | +--------+ + + + [...] Office | Pre-operative | 2, Andr[facility] Chambers [address] | | | 2019 | Visit | Medicine | [address] | | | | | | [place] [address] | | +--------+ + + + + [...] [place] | | | | | | [address] | | | | | | [phone] | | | | | | | | +--------+ + + + + documented as of this encounter Visit Diagnoses Not on filedocumented in this encounter"
--- OUTSIDE RECORDS SUMMARY | ~2019-10-18 | XMS | Encounter Summary ---
Demographics + + + | Address | [address] | | | [place] [address] | + + + | Home Phone | | + + + | Preferred Language | Unknown | + + + | Marital Status | | + + + | Advent Affiliation | NRP | + + + | Race | White | + + + | Ethnic Group | Not or | + + + Author + + + | Author | [facility] | + + + | Organization | [facility] | + + + | Address | Unknown | + + + | Phone | Unavailable | + + + Support + + + + + | Name | Relationship | Address | Phone | + + + + + | Pooja Valdez | ECON | [address] | | | | | [place] | | | | | [address] | | + + + + + Care Team Providers + +------+ + | Care Faculty Research Assistant Name | Role | Phone | + [...] Pharmacy | | | | | | [address] | | | | | | [place], [place] | | | | | | [address] | | | | | | [phone] | | | +--------+ + + + [...] 12/15/ | Office | Pre-operative | 2, [facility] [address] | | | 2019 | Visit | Medicine | [address] | | | | | | [place] [address] | | +--------+ + + + + [...] [place] | | | | | | [address] | | | | | | [phone] | | | | | | | | +--------+ + + + + documented as of this encounter Visit Diagnoses Not on filedocumented in this encounter"
--- OUTSIDE RECORDS SUMMARY | ~2019-10-18 | XMS | Encounter Summary ---
Demographics + + + | Address | [address] | | | [place] [address] | + + + | Home Phone | | + + + | Preferred Language | Unknown | + + + | Marital Status | | + + + | Sikh Affiliation | NRP | + + + | Race | White | + + + | Ethnic Group | Not or | + + + Author + + + | Author | [facility] | + + + | Organization | [facility] | + + + | Address | Unknown | + + + | Phone | Unavailable | + + + Support + + + + + | Name | Relationship | Address | Phone | + + + + + | Pooja Valdez | ECON | [address] | | | | | [place] | | | | | [address] | | + + + + + Care Team Providers + +------+ + | Care Resin Remover Name | Role | Phone | + +------+ + | Hemalatha Lawrence PA-C | PCP | | + +------+ + Encounter Details +--------+ + + + + | Date | Type | Department | Care Team | Description | +--------+ + + + + | 05/26/ | Documentati | [facility]W at [facility] | [place], | | | 2018 | on | [address] | MD [address] | | | | | [address] Mailcode: | [address] | | | | | [facility] | [place], [place] | | | | | Health and Healing, | [address] | | | | | [facility] 2 | [phone] | | | | | [place], [place] | (Fax) | | | | | [address] | | | | | | [phone] | | | +--------+ + + + [...] | Office | Pre-operative | 2, [facility] [address] | | | 2020 | Visit | Medicine | [address] | | | | | | [place] [address] | | +--------+ + + + + [...] [place] | | | | | | [address] | | | | | | [phone] | | | | | | | | +--------+ + + + + documented as of this encounter Visit Diagnoses Not on filedocumented in this encounter"
--- OUTSIDE RECORDS SUMMARY | ~2019-10-18 | XMS | Encounter Summary ---
Demographics + + + | Address | [address] | | | [place] [address] | + + + | Home Phone [...] + + + | Author | [facility] | + + + | Organization | [facility] | + + + | Address | Unknown | + + + | Phone | Unavailable | + + + Support + + + + + | Name | Relationship | Address | Phone | + + + + + | Pooja Valdez | ECON | [address] | | | | | [place] | | | | | [address] | | + + + + + Care Team Providers + +------+ + | Care Wool Presser Name | Role | Phone | + +------+ + | Hemalatha Lawrence PA-C | PCP | | + +------+ + Encounter Details +--------+ + + + + | Date | Type | Department | Care Team | Description | +--------+ + + + + | 11/18/ | MyChart | Cardiology General | | Imaging order | | 2018 | Encounter | at [facility] [address] | | | | | | [address] Mailcode: | | | | | | [address] | | | | | | Health and Healing, | | | | | | Building | | | | | | Floor [place], [place] | | | | | | [address] | | | | | | [phone] | | | +--------+ + + + [...] 12/15/ | Office | Pre-operative | 2, [facility] [address] | | | 2019 | Visit | Medicine | [address] | | | | | | [place] [address] | | +--------+ + + + + | 01/04/ | Procedure | Surgery | | | | 2019 | Pass | | | | +--------+ + + + + | 01/25/ | Office | Otolaryngology | Santos Valdivia, | | | 2019 | Visit | | MD [address] | | | | | | [address] | | | | | | [place] | | | | | | [address] | | | | | | [phone] | | | | | | | | +--------+ + + + + documented as of this encounter Visit Diagnoses Not on filedocumented in this encounter"
--- OUTSIDE RECORDS SUMMARY | ~2019-10-18 | XMS | Encounter Summary ---
Demographics + + + | Address | [address] | | | [place] [address] | + + + | Home Phone [...] + + + | Author | [facility] | + + + | Organization | [facility] | + + + [...] [place] | | | | | [address] | | + + + + + Care Team Providers + +------+ + | Care Deputy Insurance Commissioner Name | Role | Phone | + +------+ + | Hemalatha Lawrence PA-C | PCP | | + +------+ + Encounter Details +--------+ + + + + | Date | Type | Department | Care Team | Description | +--------+ + + + + | 03/21/ | MyChart | Digestive Health | Arvin Altamirano, | RE: Pouch | | 2017 | Encounter | [facility] [address] | MD [address] | | | | | [address] | [place], [place] | | | | | Mailcode: Center | [address] | | | | | for Health and | [phone] | | | | | Healing, Building 2 | | | | | | [place], [place] | | | | | | [address] | | | | | | [phone] | | | +--------+ + + + [...] 2, [facility] [address] | | | 2020 | Visit | Medicine | [address] | | | | | | [place] [address] | | +--------+ + + + + | 01/04/ | Procedure | Surgery | | | | 2019 | Pass | | | | +--------+ + + + + | 01/25/ | Office | Otolaryngology | Santos Valdivia, | | | 2019 | Visit | | [address] [facility] | | | | | | [address] | | | | | | [facility] [place] | | | | | | [address] | | | | | | [phone] | | | | | | | | +--------+ + + + + documented as of this encounter Visit Diagnoses Not on filedocumented in this encounter"
--- OUTSIDE RECORDS SUMMARY | ~2019-10-18 | XMS | Encounter Summary ---
Demographics + + + | Address | [address] [facility] | | | [place] [address] | + + + | Home Phone | | + + + | Preferred Language | Unknown | + + + | Marital Status | | + + + | Gnosticist Affiliation | NRP | + + + [...] [place] | | | | | [address] | | + + + + + Care Team Providers + +------+ + | Care Mutuel Department Manager Name | Role | Phone | [...] | | 2017 | Encounter | at [facility] [address] | | | | | | [address] [place] Mailcode: | | | | | | [address] | | | | | | Health and Healing, | | | | | | | | | | | | Floor [place], [place] | | | | | | [address] | | | | | | [phone] | | | +--------+ + + + [...] [facility] [address] | | | 2019 | Visit | Medicine | [address] | | | | | | [place] [address] | | +--------+ + + + + [...] Rd | | | | | | [place] | | | | | | [address] | | | | | | [phone] | | | | | | | | +--------+ + + + + documented as of this encounter Visit Diagnoses Not on filedocumented in this encounter"
--- OUTSIDE RECORDS SUMMARY | ~2019-10-18 | XMS | Encounter Summary ---
Demographics + + + | Address | [address] | | | [place] [address] | + + + | Home Phone | | + + + | Preferred Language | Unknown | + + + | Marital Status | | + + + | Baptism Affiliation | NRP | + + + | Race | White | + + + | Ethnic Group | Not or | + + + Author + + + | Author | [facility] | + + + | Organization | [facility] | + + + | Address | Unknown | + + + | Phone | Unavailable | + + + Support + + + + + | Name | Relationship | Address | Phone | + + + + + | Pooja Valdez | ECON | [address] | | | | | [place] | | | | | [address] | | + + + + + Care Team Providers + +------+ + | Care Process Inspector Name | Role | Phone | + [...] + + | 05/25/ | Hospital | [facility] GI PROCEDURE | [place], | | | 2018 | Encounter | [address] | [address] | | | | | Ave Mailcode: [facility] | [address] | | | | | [facility] | [place], [place] | | | | | Health and Healing, | [address] | | | | | [place] [address] | [phone] | | | | | [place], [place] | | | | | | [address] | | | | | | [phone] | | | +--------+ + + + [...] hours or on weekends and holiday Hospital Unit Secretary toll free [phone]. [phone] and have the GI doctor telephone recorder paged. The provider who performed your procedure [...] | | 0 | | | | gly,[id number] | mouth once daily. | | | [...] rom the original. PRE PROCEDURE NOTE: MR# [id number] Subjective: Mynor Valdez is a 48 y.o. 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 The | | | oabwnpeo-xa-hczaqoy limb was not examined. A TTS dilator [...]
--- OUTSIDE RECORDS SUMMARY | ~2019-10-18 | XMS | Encounter Summary ---
Demographics + + + | Address | [address] [facility] [address] | | | [place] [address] | + + + | Home Phone [...] + + + | Author | [facility] | + + + | Organization | [facility] | + + + | Address | Unknown | + + + | Phone | Unavailable | + + + Support + + + + + | Name | Relationship | Address | Phone | + + + + + | Pooja Valdez | ECON | [address] | | | | | [place] | | | | | [address] | | + + + + + Care Team Providers + +------+ + | Care Structural Shop Helper Name | Role | Phone | + +------+ + | Hemalatha Lawrence PA-C | PCP | | + +------+ + Encounter Details +--------+ + + + + | Date | Type | Department | Care Team | Description | +--------+ + + + + | 12/03/ | Abstract | [facility] | Clinic, Surgery | | | 2018 | | [place] [facility] [address] | | | | | | [address] | | | | | | Mailcode: [facility] | | | | [facility] | | | | | | [facility], [address] | | | | | | [place], [place] | | | | | | [address] | | | | | | [phone] | | | +--------+ + + + [...] | Office | Pre-operative | 2, [facility] [address] | | 2019 | Visit | Medicine | [address] | | | | | | [place] [address] | | +--------+ + + + + [...] Rd | | | | | | [facility] [facility] [place] | | | | | | [address] | | | | | | [phone] | | | | | | | | +--------+ + + + + documented as of this encounter Visit Diagnoses Not on filedocumented in this encounter"
--- OUTSIDE RECORDS SUMMARY | ~2019-10-18 | XMS | Encounter Summary ---
Demographics + + + | Address | [address] | | | [place] [address] | + + + | Home Phone | | + + + | Preferred Language | Unknown | + + + | Marital Status | | + + + | Yazidi Affiliation | NRP | + + + | Race | White | + + + | Ethnic Group | Not or | + + + Author + + + | Author | [facility] | + + + | Organization | [facility] | + + + | Address | Unknown | + + + | Phone | Unavailable | + + + Support + + + + + | Name | Relationship | Address | Phone | + + + + + | Pooja Valdez | ECON | [address] | | | | | [place] | | | | | [address] | | + + + + + Care Team Providers + +------+ + | Care Pediatrician Managing Partner Name | Role | Phone | + +------+ + | Hemalatha Lawrence PA-C | PCP | | + +------+ + Encounter Details +--------+ + + + + | Date | Type | Department | Care Team | Description | +--------+ + + + + | 02/18/ | Hospital | Registration 3181 | Luis Calixto MD | | | 2005 | Activity | [address] | [address] | | | | | [place] Mailcode: [id number] | [place], | | | | | [place], [place] | [place] [address] | | | | | [address] | [phone] | | | | | [phone] | | | +--------+ + + + [...] | 2020 | Visit | Medicine | [address] | | | | | | [place] [address] | | +--------+ + + + + | 01/04/ | Procedure | Surgery | | | | 2019 | Pass | | | | +--------+ + + + + | 01/25/ | Office | Otolaryngology | Santos Valdivia, | | | 2019 | Visit | | [address] | | | | | | [address] | | | | | | [place], [place] | | | | | | [address] | | | | | | [phone] | | | | | | | | +--------+ + + + + documented as of this encounter Procedures + +--------+ + + + | Procedure Name | Priori | Date/Time | Associated Diagnosis | Comments | | | ty | | | | + +--------+ + + + | BASIC METABOLIC SET | Routin | 02/22/2006 | | Results for this | | (NA, K, CL, TCO2, | e | 8:04 AM | | procedure are in the | | BUN, CR, GLU, CA) | | PDT | | results section. | + +--------+ + + + | CBC ONLY | Routin | 02/22/2006 | | Results for this | | | e | 8:04 AM | | procedure are in the | | | | PDT | | results section. | + +--------+ + + + | BASIC METABOLIC SET | Routin | 02/21/2006 | | Results for this | | (NA, K, CL, TCO2, | e | 8:15 AM | | procedure are in the | | BUN, CR, GLU, CA) | | PDT | | results section. | + +--------+ + + + | CBC ONLY | Routin | 02/21/2006 | | Results for this | | | e | 8:15 AM | | procedure are in the | | | | PDT | | results section. | + +--------+ + + + | MRI BRAIN WWO | Routin | 02/20/2006 | | Results for this | | CONTRAST | e | 12:13 PM | | procedure are in the | | | | PDT | | results section. | + +--------+ + + + | BASIC METABOLIC SET | Routin | 02/20/2006 | | Results for this | | (NA, K, CL, TCO2, | e | 8:55 AM | | procedure are in the | | BUN, CR, GLU, CA) | | PDT | | results section. | + +--------+ + + + | CBC ONLY | Routin | 02/20/2006 | | Results for this | | | e | 8:55 AM | | procedure are in the | | | | PDT | | results section. | + +--------+ + + + | HEMOGLOBIN A1C, | Routin | 02/20/2006 | | Results for this | | BLOOD | e | 8:55 AM | | procedure are in the | | | | PDT | | results section. | + +--------+ + + + | VANCOMYCIN, TROUGH | Routin | 02/20/2006 | | Results for this | | | e | 12:15 AM | | procedure are in the | | | | PDT | | results section. | + +--------+ + + + | MRI BRAIN WWO | Routin | 02/19/2006 | | Results for this | | CONTRAST | e | 10:53 PM | | procedure are in the | | | | PDT | | results section. | + +--------+ + + + | AFB PRELIM 1 | Routin | 02/19/2006 | | Results for this | | | e | 10:08 PM | | procedure are in the | | | | PDT | | results section. | + +--------+ + + + | HSV PCR TO | Routin | 02/19/2006 | | Results for this | | PROVIDENCE, CSF | e | 10:08 PM | | procedure are in the | | | | PDT | | results section. | + +--------+ + + + | VDRL CSF | Routin | 02/19/2006 | | Results for this | | | e | 10:08 PM | | procedure are in the | | | | PDT | | results section. | + +--------+ + + + | ACID FAST BACILLI, | Routin | 02/19/2006 | | Results for this | | SMEAR ONLY | e | 10:08 PM | | procedure are in the | | | | PDT | | results section. | + +--------+ + + + | CULTURE, AFB (ALL | Routin | 02/19/2006 | | Results for this | | SPEC TYPES EXCEPT | e | 10:08 PM | | procedure are in the | | BLOOD) | | PDT | | results section. | + +--------+ + + + | CULTURE, CSF BACTI | Routin | 02/19/2006 | | Results for this | | | e | 10:08 PM | | procedure are in the | | | | PDT | | results section. | + +--------+ + + + | CSF INFO PANEL | Urgent | 02/19/2006 | | Results for this | | | | 6:49 PM | | procedure are in the | | | | PDT | | results section. | + +--------+ + + + | GLUCOSE, CSF | Urgent | 02/19/2006 | | Results for this | | | | 6:49 PM | | procedure are in the | | | | PDT | | results section. | + +--------+ + + + | CELL COUNT DIFF, CSF | Urgent | 02/19/2006 | | Results for this | | | | 6:49 PM | | procedure are in the | | | | PDT | | results section. | + +--------+ + + + | GRAM SMEAR ONLY, | Urgent | 02/19/2006 | | Results for this | | STAT | | 6:49 PM | | procedure are in the | | | | PDT | | results section. | + +--------+ + + + | PROTEIN, CSF | Urgent | 02/19/2006 | | Results for this | | | | 6:49 PM | | procedure are in the | | | | PDT | | results section. | + +--------+ + + + | X-RAY SPINAL TAP AND | Routin | 02/19/2006 | | Results for this | | ASPIRATION | e | 5:35 PM | | procedure are in the | | | | PDT | | results section. | + +--------+ + + + | X-RAY FLUORO GUIDE | Routin | 02/19/2006 | | Results for this | | LOC 4 SPINE INJ | e | 5:35 PM | | procedure are in the | | | | PDT | | results section. | + +--------+ + + + | DIFFERENTIAL | Routin | 02/19/2006 | | Results for this | | | e | 6:59 AM | | procedure are in the | | | | PDT | | results section. | + +--------+ + + + | SLIDE REVIEW | Routin | 02/19/2006 | | Results for this | | | e | 6:59 AM | | procedure are in the | | | | PDT | | results section. | + +--------+ + + + | BASIC METABOLIC SET | Routin | 02/19/2006 | | Results for this | | (NA, K, CL, TCO2, | e | 6:59 AM | | procedure are in the | | BUN, CR, GLU, CA) | | PDT | | results section. | + +--------+ + + + | CBC ONLY | Routin | 02/19/2006 | | Results for this | | | e | 6:59 AM | | procedure are in the | | | | PDT | | results section. | + +--------+ + + + | SPECIMEN ROUTING | Routin | 02/18/2006 | | Results for this | | | e | 10:32 PM | | procedure are in the | | | | PDT | | results section. | + +--------+ + + + | HERPES BY PCR, CSF | Routin | 02/18/2006 | | Results for this | | | e | 10:32 PM | | procedure are in the | | | | PDT | | results section. | + +--------+ + + + | CULTURE, CSF BACTI | Routin | 02/18/2006 | | Results for this | | | e | 10:32 PM | | procedure are in the | | | | PDT | | results section. | + +--------+ + + + | CSF INFO PANEL | Urgent | 02/18/2006 | | Results for this | | | | 9:13 PM | | procedure are in the | | | | PDT | | results section. | + +--------+ + + + | GLUCOSE, CSF | Urgent | 02/18/2006 | | Results for this | | | | 9:13 PM | | procedure are in the | | | | PDT | | results section. | + +--------+ + + + | CELL COUNT DIFF, CSF | Urgent | 02/18/2006 | | Results for this | | | | 9:13 PM | | procedure are in the | | | | PDT | | results section. | + +--------+ + + + | GRAM SMEAR ONLY, | Urgent | 02/18/2006 | | Results for this | | STAT | | 9:13 PM | | procedure are in the | | | | PDT | | results section. | + +--------+ + + + | PROTEIN, CSF | Urgent | 02/18/2006 | | Results for this | | | | 9:13 PM | | procedure are in the | | | | PDT | | results section. | + +--------+ + + + | X-RAY SPINAL TAP AND | Routin | 02/18/2006 | | Results for this | | ASPIRATION | e | 9:09 PM | | procedure are in the | | | | PDT | | results section. | + +--------+ + + + | CT HEAD WO CONTRAST | Urgent | 02/18/2006 | | Results for this | | | | 3:00 PM | | procedure are in the | | | | PDT | | results section. | + +--------+ + + + | DIFFERENTIAL | Urgent | 02/18/2006 | | Results for this | | | | 2:25 PM | | procedure are in the | | | | PDT | | results section. | + +--------+ + + + | INR | Urgent | 02/18/2006 | | Results for this | | | | 2:25 PM | | procedure are in the | | | | PDT | | results section. | + +--------+ + + + | CBC, WITH | Urgent | 02/18/2006 | | Results for this | | DIFFERENTIAL | | 2:25 PM | | procedure are in the | | | | PDT | | results section. | + +--------+ + + + | BASIC METABOLIC SET | Urgent | 02/18/2006 | | Results for this | | (NA, K, CL, TCO2, | | 2:25 PM | | procedure are in the | | BUN, CR, GLU, CA) | | PDT | | results section. | + +--------+ + + + | APTT (ACT. PART. | Urgent | 02/18/2006 | | Results for this | | THROMBO TIME) | | 2:25 PM | | procedure are in the | | | | PDT | | results section. | + +--------+ + + + documented in this encounter Results BASIC METABOLIC SET (02/22/2006 8:04 AM PDT) + +---------+ + + + | Component | Value | Ref Range | Performed | Pathologist | | | | | At | Signature | + +---------+ + + + | GLUCOSE, | 148 (H) | 65 - 110 mg/dL | [facility] | | | PLASMA | | | DEPARTMENT | | | (LAB) | | | OF | | | | | | PATHOLOGY | | + +---------+ + + + | BUN, PLASMA | 10 | 6 - 20 mg/dL | [facility] | | | (LAB) | | | DEPARTMENT | | | | | | OF | | | | | | PATHOLOGY | | + +---------+ + + + | CREATININE | 0.9 | 0.7 - 1.3 mg/dL | [facility] | | | PLASMA | | | DEPARTMENT | | | (LAB) | | | OF | | | | | | PATHOLOGY | | + +---------+ + + + | SODIUM, | 137 | 136 - 145 | [facility] | | | PLASMA | | mmol/L | DEPARTMENT | | | (LAB) | | | OF | | | | | | PATHOLOGY | | + +---------+ + + + | POTASSIUM, | 4.1 | 3.5 - 5.1 | [facility] | | | PLASMA | | mmol/L | DEPARTMENT | | | (LAB) | | | OF | | | | | | PATHOLOGY | | + +---------+ + + + | CHLORIDE, | 104 | 98 - 107 mmol/L | [facility] | | | PLASMA | | | DEPARTMENT | | | (LAB) | | | OF | | | | | | PATHOLOGY | | + +---------+ + + + | TOTAL CO2, | 28 | 23 - 29 mmol/L | [facility] | | | PLASMA | | | DEPARTMENT | | | (LAB) | | | OF | | | | | | PATHOLOGY | | + +---------+ + + + | CALCIUM, | 9.3 | 8.5 - 10.5 | [facility] | | | PLASMA | | mg/dL | DEPARTMENT | | | (LAB) | | | OF | | | | | | PATHOLOGY | | + +---------+ + + + + + | Specimen | + + | | + + + + + + + | Performing | Address | City/State/Zipcode | Phone Number | | Organization | | | | + + + + + | [facility] | [address] | [place] [address] | | | PATHOLOGY | [address] | | | + + + + + | [facility] | [address] [place] [address] | [place] [address] | | | PATHOLOGY | [address] | | | + + + + + CBC ONLY WITH PLATELET (02/22/2006 8:04 AM PDT) + + + + + + | Component | Value | Ref Range | Performed | Pathologist | | | | | At | Signature | + + + + + + | WHITE CELL | 11.5 (H) | 4.4 - 11.0 K/cu | [facility] | | | COUNT | | mm | DEPARTMENT | | | | | | OF | | | | | | PATHOLOGY | | + + + + + + | RED CELL | 4.68 | 4.50 - 5.90 | [facility] | | | COUNT | | M/cu mm | DEPARTMENT | | | | | | OF | | | | | | PATHOLOGY | | + + + + + + | HEMOGLOBIN | 14.9 | 13.5 - 17.5 | [facility] | | | | | g/dL | DEPARTMENT | | | | | | OF | | | | | | PATHOLOGY | | + + + + + + | HEMATOCRIT | 42.1 | 41.0 - 53.0 % | [facility] | | | | | | DEPARTMENT | | | | | | OF | | | | | | PATHOLOGY | | + + + + + + | MCV | 89.9 | 80.0 - 96.0 fL | [facility] | | | | | | DEPARTMENT | | | | | | OF | | | | | | PATHOLOGY | | + + + + + + | MCHC | 35.4 | 33.4 - 35.5 | [facility] | | | | | g/dL | DEPARTMENT | | | | | | OF | | | | | | PATHOLOGY | | + + + + + + | RDW | 12.8 | 11.5 - 15.0 % | [facility] | | | | | | DEPARTMENT | | | | | | OF | | | | | | PATHOLOGY | | + + + + + + | PLATELET | 171 | 150 - 400 K/cu | [facility] | | | COUNT | | mm | DEPARTMENT | | | | | | OF | | | | | | PATHOLOGY | | + + + + + + + + | Specimen | + + | | + + + + + + + | Performing | Address | City/State/Zipcode | Phone Number | | Organization | | | | + + + + + | [facility] | [address] [place] [address] | [place] [address] | | | PATHOLOGY | [address] | | | + + + + + | [facility] DE[facility]MENT [facility] | [address] [place] [address] | [place] [address] | | | PATHOLOGY | [address] | | | + + + + + BASIC METABOLIC SET (02/21/2006 8:15 AM PDT) + +---------+ + + + | Component | Value | Ref Range | Performed | Pathologist | | | | | At | Signature | + +---------+ + + + | GLUCOSE, | 140 (H) | 65 - 110 mg/dL | [facility] | | | PLASMA | | | DEPARTMENT | | | (LAB) | | | OF | | | | | | PATHOLOGY | | + +---------+ + + + | BUN, PLASMA | 10 | 6 - 20 mg/dL | [facility] | | | (LAB) | | | DEPARTMENT | | | | | | OF | | | | | | PATHOLOGY | | + +---------+ + + + | CREATININE | 1.0 | 0.7 - 1.3 mg/dL | [facility] | | | PLASMA | | | DEPARTMENT | | | (LAB) | | | OF | | | | | | PATHOLOGY | | + +---------+ + + + | SODIUM, | 137 | 136 - 145 | [facility] | | | PLASMA | | mmol/L | DEPARTMENT | | | (LAB) | | | OF | | | | | | PATHOLOGY | | + +---------+ + + + | POTASSIUM, | 4.4 | 3.5 - 5.1 | [facility] | | | PLASMA | | mmol/L | DEPARTMENT | | | (LAB) | | | OF | | | | | | PATHOLOGY | | + +---------+ + + + | CHLORIDE, | 101 | 98 - 107 mmol/L | [facility] | | | PLASMA | | | DEPARTMENT | | | (LAB) | | | OF | | | | | | PATHOLOGY | | + +---------+ + + + | TOTAL CO2, | 29 | 23 - 29 mmol/L | [facility] | | | PLASMA | | | DEPARTMENT | | | (LAB) | | | OF | | | | | | PATHOLOGY | | + +---------+ + + + | CALCIUM, | 9.4 | 8.5 - 10.5 | [facility] | | | PLASMA | | mg/dL | DEPARTMENT | | | (LAB) | | | OF | | | | | | PATHOLOGY | | + +---------+ + + + + + | Specimen | + + | | + + + + + + + | Performing | Address | City/State/Zipcode | Phone Number | | Organization | | | | + + + + + | [facility] | [address] | [place] [address] | | | PATHOLOGY | [address] | | | + + + + + | [facility] | [address] | [place] [address] | | | PATHOLOGY | [address] | | | + + + + + CBC ONLY WITH PLATELET (02/21/2006 8:15 AM PDT) + + + + + + | Component | Value | Ref Range | Performed | Pathologist | | | | | At | Signature | + + + + + + | WHITE CELL | 11.8 (H) | 4.4 - 11.0 K/cu | [facility] | | | COUNT | | mm | DEPARTMENT | | | | | | OF | | | | | | PATHOLOGY | | + + + + + + | RED CELL | 4.73 | 4.50 - 5.90 | [facility] | | | COUNT | | M/cu mm | DEPARTMENT | | | | | | OF | | | | | | PATHOLOGY | | + + + + + + | HEMOGLOBIN | 14.9 | 13.5 - 17.5 | [facility] | | | | | g/dL | DEPARTMENT | | | | | | OF | | | | | | PATHOLOGY | | + + + + + + | HEMATOCRIT | 42.2 | 41.0 - 53.0 % | [facility] | | | | | | DEPARTMENT | | | | | | OF | | | | | | PATHOLOGY | | + + + + + + | MCV | 89.1 | 80.0 - 96.0 fL | [facility] | | | | | | DEPARTMENT | | | | | | OF | | | | | | PATHOLOGY | | + + + + + + | MCHC | 35.4 | 33.4 - 35.5 | [facility] | | | | | g/dL | DEPARTMENT | | | | | | OF | | | | | | PATHOLOGY | | + + + + + + | RDW | 13.2 | 11.5 - 15.0 % | [facility] | | | | | | DEPARTMENT | | | | | | OF | | | | | | PATHOLOGY | | + + + + + + | PLATELET | 154 | 150 - 400 K/cu | [facility] | | | COUNT | | mm | DEPARTMENT | | | | | | OF | | | | | | PATHOLOGY | | + + + + + + + + | Specimen | + + | | + + + + + + + | Performing | Address | City/State/Zipcode | Phone Number | | Organization | | | | + + + + + | [facility] | [address] | [place] [address] | | | PATHOLOGY | [address] | | | + + + + + | [facility] | [address] | [place] [address] | | | PATHOLOGY | [address] | | | + + + + + MRI BRAIN WWO CONTRAST (02/20/2006 12:13 PM PDT) + + + + + + | Component | Value | Ref Range | Performed | Pathologist | | | | | At | Signature | + + + + + + | MR BRAIN | Radiologist 1: MILES, | | | | | NICK | DOMINIC brain 02/19/06 | | | | | CONTRAST | COMPARISON: Head CT | | | | | | 02/18/06 TECHNIQUE : MRI | | | | | | images were obtained in | | | | | | the following | | | | | | sequences:1. Sagittal T1 | | | | | | and coronal FLAIR2. | | | | | | Axial T1, T23. Post | | | | | | gadolinium axial and | | | | | | coronal T1 | | | | | | FINDINGS:There is acute | | | | | | to early subacute | | | | | | parenchymal hematoma in | | | | | | the rightinferior | | | | | | frontal lobe with mild | | | | | | surrounding vasogenic | | | | | | edema.There is slightly | | | | | | irregular enhancement | | | | | | along the lateral | | | | | | marginof the hematoma. | | | | | | No focal abscess is | | | | | | identified. There | | | | | | issubdural blood along | | | | | | the right convexity, | | | | | | along the tentorium | | | | | | andextending along the | | | | | | anterior margin of the | | | | | | foramen magnum. | | | | | | Thereis minimal | | | | | | subdural hematoma along | | | | | | the inferior left | | | | | | frontal andanterior left | | | | | | temporal lobe. No | | | | | | leptomeningeal | | | | | | enhancement | | | | | | isidentified. There is | | | | | | no hydrocephalus. No | | | | | | significant midlineshift | | | | | | is present. Normal | | | | | | flow voids persist in | | | | | | the majorintracranial | | | | | | vessels. There is | | | | | | bilateral mastoid fluid. | | | | | | Bilateral maxillary | | | | | | sinusmucosal thickening | | | | | | is present and there is | | | | | | fluid or blood in | | | | | | theright maxillary | | | | | | sinus. There is | | | | | | heterogeneous | | | | | | opacification ofthe | | | | | | right sphenoid sinus. | | | | | | IMPRESSION: 1. | | | | | | Inferior right frontal | | | | | | acute to subacute | | | | | | parenchymal hematomawith | | | | | | surrounding vasogenic | | | | | | edema. No focal abscess | | | | | | is identified.The | | | | | | slightly irregular | | | | | | enhancement along the | | | | | | lateral margin of | | | | | | thehematoma is thought | | | | | | to those likely be | | | | | | related to the | | | | | | expectedevolution of the | | | | | | hematoma, although, | | | | | | early infection such | | | | | | ascerebritis or | | | | | | meningitis cannot be | | | | | | completely excluded. 2. | | | | | | Subdural hematoma | | | | | | along the right | | | | | | convexity, right | | | | | | tentoriumand minimally | | | | | | along the left frontal | | | | | | and anterior left | | | | | | temporallobes. Addendum | | | | | | # 1 by Srini Esqueda on | | | | | | 25-Feb-2006 10:48 There | | | | | | is no change to this | | | | | | report. The addendum is | | | | | | to administrativelylink | | | | | | the associated report. | | | | + + + + + + + + | Specimen | + + | | + + + +---------+ + + | Performing | Address | City/State/Zipcode | Phone Number | | Organization | | | | + +---------+ + + | [facility] | | | | | RADIOLOGY | | | | + +---------+ + + HEMOGLOBIN A1C (02/20/2006 8:55 AM PDT) + + + + + + | Component | Value | Ref Range | Performed | Pathologist | | | | | At | Signature | + + + + + + | HEMOGLOBIN | 6.4 (H)Comment: | <5.8 % | | | | A1C | Non-Diabetic: | | | | | | | | | | | | 4.0-5.7 % Risk For | | | | | | Chronic Complications | | | | | | in Adults: Low | | | | | | risk of complications: | | | | | | <7.0 | | | | | | % Intermediate | | | | | | risk of complications | | | | | | 7.0-7.9 % High | | | | | | risk of complications | | | | | | >7.9 % | | | | | | Test performed by | | | | | | [facility] | | | | | | [facility]. | | | | + + + + + + + + | Specimen | + + | | + + + + + | Narrative | Performed At | + + + | Ordered by ANGY LOTT | | + + + + + + + + | Performing | Address | City/State/Zipcode | Phone Number | | Organization | | | | + + + + + | [facility] | [address] | [place] [address] | | | LABORATORY | | | | + + + + + BASIC METABOLIC SET (02/20/2006 8:55 AM PDT) + +---------+ + + + | Component | Value | Ref Range | Performed | Pathologist | | | | | At | Signature | + +---------+ + + + | GLUCOSE, | 166 (H) | 65 - 110 mg/dL | [facility] | | | PLASMA | | | DEPARTMENT | | | (LAB) | | | OF | | | | | | PATHOLOGY | | + +---------+ + + + | BUN, PLASMA | 11 | 6 - 20 mg/dL | [facility] | | | (LAB) | | | DEPARTMENT | | | | | | OF | | | | | | PATHOLOGY | | + +---------+ + + + | CREATININE | 0.9 | 0.7 - 1.3 mg/dL | [facility] | | | PLASMA | | | DEPARTMENT | | | (LAB) | | | OF | | | | | | PATHOLOGY | | + +---------+ + + + | SODIUM, | 136 | 136 - 145 | [facility] | | | PLASMA | | mmol/L | DEPARTMENT | | | (LAB) | | | OF | | | | | | PATHOLOGY | | + +---------+ + + + | POTASSIUM, | 4.0 | 3.5 - 5.1 | [facility] | | | PLASMA | | mmol/L | DEPARTMENT | | | (LAB) | | | OF | | | | | | PATHOLOGY | | + +---------+ + + + | CHLORIDE, | 99 | 98 - 107 mmol/L | [facility] | | | PLASMA | | | DEPARTMENT | | | (LAB) | | | OF | | | | | | PATHOLOGY | | + +---------+ + + + | TOTAL CO2, | 28 | 23 - 29 mmol/L | [facility] | | | PLASMA | | | DEPARTMENT | | | (LAB) | | | OF | | | | | | PATHOLOGY | | + +---------+ + + + | CALCIUM, | 9.1 | 8.5 - 10.5 | [facility] | | | PLASMA | | mg/dL | DEPARTMENT | | | (LAB) | | | OF | | | | | | PATHOLOGY | | + +---------+ + + + + + | Specimen | + + | | + + + + + + + | Performing | Address | City/State/Zipcode | Phone Number | | Organization | | | | + + + + + | [facility] | [address] | [place] [address] | | | PATHOLOGY | [address] | | | + + + + + | [facility] | [address] | [place] [address] | | | PATHOLOGY | [address] | | | + + + + + CBC ONLY WITH PLATELET (02/20/2006 8:55 AM PDT) + + + + + + | Component | Value | Ref Range | Performed | Pathologist | | | | | At | Signature | + + + + + + | WHITE CELL | 14.3 (H) | 4.4 - 11.0 K/cu | [facility] | | | COUNT | | mm | DEPARTMENT | | | | | | OF | | | | | | PATHOLOGY | | + + + + + + | RED CELL | 4.77 | 4.50 - 5.90 | [facility] | | | COUNT | | M/cu mm | DEPARTMENT | | | | | | OF | | | | | | PATHOLOGY | | + + + + + + | HEMOGLOBIN | 15.2 | 13.5 - 17.5 | [facility] | | | | | g/dL | DEPARTMENT | | | | | | OF | | | | | | PATHOLOGY | | + + + + + + | HEMATOCRIT | 42.4 | 41.0 - 53.0 % | [facility] | | | | | | DEPARTMENT | | | | | | OF | | | | | | PATHOLOGY | | + + + + + + | MCV | 88.7 | 80.0 - 96.0 fL | [facility] | | | | | | DEPARTMENT | | | | | | OF | | | | | | PATHOLOGY | | + + + + + + | MCHC | 35.8 (H) | 33.4 - 35.5 | [facility] | | | | | g/dL | DEPARTMENT | | | | | | OF | | | | | | PATHOLOGY | | + + + + + + | RDW | 13.0 | 11.5 - 15.0 % | [facility] | | | | | | DEPARTMENT | | | | | | OF | | | | | | PATHOLOGY | | + + + + + + | PLATELET | 168 | 150 - 400 K/cu | [facility] | | | COUNT | | mm | DEPARTMENT | | | | | | OF | | | | | | PATHOLOGY | | + + + + + + + + | Specimen | + + | | + + + + + + + | Performing | Address | City/State/Zipcode | Phone Number | | Organization | | | | + + + + + | [facility] | [address] | [place] [address] | | | PATHOLOGY | [address] | | | + + + + + | [facility] DEPARTMENT | [address] | [place] [address] | | | PATHOLOGY | [address] | | | + + + + + VANCOMYCIN, TROUGH (02/20/2006 12:15 AM PDT) + +---------+ + + + | Component | Value | Ref Range | Performed | Pathologist | | | | | At | Signature | + +---------+ + + + | VANCOMYCIN, | 4.4 (L) | 5.0 - 15.0 | [facility] | | | TROUGH | | ug/mL | DEPARTMENT | | | | | | OF | | | | | | PATHOLOGY | | + +---------+ + + + + + | Specimen | + + | | + + + + + + + | Performing | Address | City/State/Zipcode | Phone Number | | Organization | | | | + + + + + | [facility] | [address] [place] [address] | [place] [address] | | | PATHOLOGY | [address] | | | + + + + + | [facility] | [address] [place] [address] | [place] [address] | | | PATHOLOGY | [address] | | | + + + + + MRI BRAIN WWO CONTRAST (02/19/2006 10:53 PM PDT) + + + + + + | Component | Value | Ref Range | Performed | Pathologist | | | | | At | Signature | + + + + + + | MR BRAIN | Radiologist 1: MILES, | | | | | JUDO | [facility] brain 02/19/06 | | | | | CONTRAST | COMPARISON: Head CT | | | | | | 02/18/06 TECHNIQUE : MRI | | | | | | images were obtained in | | | | | | the following | | | | | | sequences:1. Sagittal T1 | | | | | | and coronal FLAIR2. | | | | | | Axial T1, T23. Post | | | | | | gadolinium axial and | | | | | | coronal T1 | | | | | | FINDINGS:There is acute | | | | | | to early subacute | | | | | | parenchymal hematoma in | | | | | | the rightinferior | | | | | | frontal lobe with mild | | | | | | surrounding vasogenic | | | | | | edema.There is slightly | | | | | | irregular enhancement | | | | | | along the lateral | | | | | | marginof the hematoma. | | | | | | No focal abscess is | | | | | | identified. There | | | | | | issubdural blood along | | | | | | the right convexity, | | | | | | along the tentorium | | | | | | andextending along the | | | | | | anterior margin of the | | | | | | foramen magnum. | | | | | | Thereis minimal | | | | | | subdural hematoma along | | | | | | the inferior left | | | | | | frontal andanterior left | | | | | | temporal lobe. No | | | | | | leptomeningeal | | | | | | enhancement | | | | | | isidentified. There is | | | | | | no hydrocephalus. No | | | | | | significant midlineshift | | | | | | is present. Normal | | | | | | flow voids persist in | | | | | | the majorintracranial | | | | | | vessels. There is | | | | | | bilateral mastoid fluid. | | | | | | Bilateral maxillary | | | | | | sinusmucosal thickening | | | | | | is present and there is | | | | | | fluid or blood in | | | | | | theright maxillary | | | | | | sinus. There is | | | | | | heterogeneous | | | | | | opacification ofthe | | | | | | right sphenoid sinus. | | | | | | IMPRESSION: 1. | | | | | | Inferior right frontal | | | | | | acute to subacute | | | | | | parenchymal hematomawith | | | | | | surrounding vasogenic | | | | | | edema. No focal abscess | | | | | | is identified.The | | | | | | slightly irregular | | | | | | enhancement along the | | | | | | lateral margin of | | | | | | thehematoma is thought | | | | | | to those likely be | | | | | | related to the | | | | | | expectedevolution of the | | | | | | hematoma, although, | | | | | | early infection such | | | | | | ascerebritis or | | | | | | meningitis cannot be | | | | | | completely excluded. 2. | | | | | | Subdural hematoma | | | | | | along the right | | | | | | convexity, right | | | | | | tentoriumand minimally | | | | | | along the left frontal | | | | | | and anterior left | | | | | | temporallobes. Addendum | | | | | | # 1 by Srini Esqueda on | | | | | | 25-Feb-2006 10:48 There | | | | | | is no change to this | | | | | | report. The addendum is | | | | | | to administrativelylink | | | | | | the associated report. | | | | + + + + + + + + | Specimen | + + | | + + + + + | Narrative | Performed At | + + + | Ordered by ANGY LOTT | | + + + + +---------+ + + | Performing | Address | City/State/Zipcode | Phone Number | | Organization | | | | + +---------+ + + | [facility] DEPARTMENT OF | | | | | RADIOLOGY | | | | + +---------+ + + HSV PCR-PROV, CSF (02/19/2006 10:08 PM PDT) + + + + + + | Component | Value | Ref Range | Performed | Pathologist | | | | | At | Signature | + + + + + + | HSV | NegativeComment: | | | | | PCR-PROV, | Test performed by | | | | | CSF | [facility] | | | | | | [facility]. | | | | + + + + + + + + | Specimen | + + | | + + + + + + + | Performing | Address | City/State/Zipcode | Phone Number | | Organization | | | | + + + + + | [facility] | [address] | [place] [address] | | | LABORATORY - PTLD | | | | + + + + + CULTURE, CSF BACTI (02/19/2006 10:08 PM PDT) + + + + + + | Component | Value | Ref Range | Performed | Pathologist | | | | | At | Signature | + + + + + + | SOURCE BODY | Cerebrospinal Fluid | | | | | SITE | | | | | + + + + + + | CULTURE | CSF Culture | | | | | RESULT | | | | | | | Source...............: | | | | | | Cerebrospinal Fluid RLB | | | | | | Gram Stain...........: | | | | | | Gram smear performed at | | | | | | [facility]. Culture: | | | | | | Preliminary Report: | | | | | | No growth after 1 day. | | | | | | Culture examined | | | | | | daily. Report will | | | | | | be updated if growth | | | | | | occurs. Final | | | | | | Report: No growth after | | | | | | 3 days. Final | | | | | | ReportComment: Test | | | | | | performed at [facility] | | | | | | [facility] | | | | | | Laboratory. | | | | + + + + + + + + | Specimen | + + | | + + + + + + + | Performing | Address | City/State/Zipcode | Phone Number | | Organization | | | | + + + + + | [facility] | [address] | [place] [address] | | | LAB-MICRO | | | | + + + + + AFB PRELIM 1 (02/19/2006 10:08 PM PDT) + + + + + + | Component | Value | Ref Range | Performed | Pathologist | | | | | At | Signature | + + + + + + | PRELIMINARY | Acid Fast Bacilli NOT | | | | | 1 | detected at 4 weeks. | | | | + + + + + + + + | Specimen | + + | | + + + + + + + | Performing | Address | City/State/Zipcode | Phone Number | | Organization | | | | + + + + + | [facility] | [address] | [place] [address] | | | LAB-MICRO | | | | + + + + + ACID FAST BACILLI, SMEAR ONLY (02/19/2006 10:08 PM PDT) + + + + + + | Component | Value | Ref Range | Performed | Pathologist | | | | | At | Signature | + + + + + + | SOURCE BODY | Cerebrospinal Fluid | | | | | SITE | | | | | + + + + + + + + | Specimen | + + | | + + + + + + + | Performing | Address | City/State/Zipcode | Phone Number | | Organization | | | | + + + + + | [facility] | [address] | [place] [address] | | | LAB-MICRO | | | | + + + + + CHAUNCEY GRIFFIN (ALL SPECIMEN TYPES) (02/19/2006 10:08 PM PDT) + + + + + + | Component | Value | Ref Range | Performed | Pathologist | | | | | At | Signature | + + + + + + | SOURCE BODY | Cerebrospinal Fluid | | | | | SITE | | | | | + + + + + + | CULTURE | Acid Fast Bacilli | | | | | RESULT | Culture | | | | | | Source.............: | | | | | | Cerebrospinal Fluid RLB | | | | | | FA Stain...........: | | | | | | Culture received, Smear | | | | | | NOT indicated by | | | | | | | | | | | | source. | | | | | | Preliminary 1......: | | | | | | Acid Fast Bacilli NOT | | | | | | detected at 4 weeks. | | | | | | Final | | | | | | Report.......: Acid | | | | | | Fast Bacilli NOT | | | | | | detected at 6 | | | | | | weeks.Comment: Test | | | | | | performed at [facility] | | | | | | [facility] | | | | | | Laboratory | | | | + + + + + + + + | Specimen | + + | | + + + + + + + | Performing | Address | City/State/Zipcode | Phone Number | | Organization | | | | + + + + + | [facility] | [address] | [place] [address] | | | LAB-MICRO | | | | + + + + + VDRL CSF (02/19/2006 10:08 PM PDT) + + + + + + | Component | Value | Ref Range | Performed | Pathologist | | | | | At | Signature | + + + + + + | VDRL | NON REACComment: Test | Non - Reactive | | | | | performed by [facility] | | | | | | Laboratories. | | | | + + + + + + | VDRL TITER, | NOT DONEComment: Because | | | | | CSF | the VDRL was Non | | | | | | Reactive, the VDRL | | | | | | titerwas not performed. | | | | + + + + + + + + | Specimen | + + | | + + + + + + + | Performing | Address | City/State/Zipcode | Phone Number | | Organization | | | | + + + + + | [facility] | [address] | [place], [place] | | | [facility] | | [address] | | + + + + + PROTEIN, CSF (02/19/2006 6:49 PM PDT) + +--------+ + + + | Component | Value | Ref Range | Performed | Pathologist | | | | | At | Signature | + +--------+ + + + | TOTAL | 53 (H) | 15 - 45 mg/dL | [facility] | | | PROTEIN CSF | | | DEPARTMENT | | | | | | OF | | | | | | PATHOLOGY | | + +--------+ + + + + + | Specimen | + + | | + + + + + | Narrative | Performed At | + + + | DIFF Phoned Readback. Tube 5 used for cell count/diff. Free Text | [facility] | | changed 02/20/06 13:38: previously reported as: DIFF Phoned Readback. | DEPARTMENT OF | | * Corrected 02/20/06 13:38: CSF TUBE NUMBER, prev report: Tube 1 | PATHOLOGY | + + + + + + + + | Performing | Address | City/State/Zipcode | Phone Number | | Organization | | | | + + + + + | [facility] DEPARTMENT OF | [address] | [place] [address] | | | PATHOLOGY | [address] | | | + + + + + | [facility] DEPARTMENT OF | [address] | [place] [address] | | | PATHOLOGY | [address] | | | + + + + + CELL COUNT DIFF, CSF (02/19/2006 6:49 PM PDT) + +--------+ + + + | Component | Value | Ref Range | Performed | Pathologist | | | | | At | Signature | + +--------+ + + + | CSF WBC | < 1 | <6 /cu mm | [facility] | | | | | | DEPARTMENT | | | | | | OF | | | | | | PATHOLOGY | | + +--------+ + + + | CSF RBC | [address] | /cu mm | [facility] | | | | | | DEPARTMENT | | | | | | OF | | | | | | PATHOLOGY | | + +--------+ + + + | DIFFERENTIA | 100 | | [facility] | | | L CSF | | | DEPARTMENT | | | | | | OF | | | | | | PATHOLOGY | | + +--------+ + + + | NEUTROPHIL( | 44 (*) | <7 % | [facility] | | | CSF) | | | DEPARTMENT | | | | | | OF | | | | | | PATHOLOGY | | + +--------+ + + + | LYMPHOCYTES | 48 | 40 - 80 % | [facility] | | | (CSF) | | | DEPARTMENT | | | | | | OF | | | | | | PATHOLOGY | | + +--------+ + + + | MONOCYTES(C | 6 (L) | 15 - 45 % | [facility] | | | SF) | | | DEPARTMENT | | | | | | OF | | | | | | PATHOLOGY | | + +--------+ + + + | EOSINOPHILS | 2 | % | [facility] | | | (CSF) | | | DEPARTMENT | | | | | | OF | | | | | | PATHOLOGY | | + +--------+ + + + + + | Specimen | + + | | + + + + + | Narrative | Performed At | + + + | DIFF Phoned Readback. Tube 5 used for cell count/diff. Free Text | [facility] | | changed 02/20/06 13:38: previously reported as: DIFF Phoned Readback. | DEPARTMENT OF | | * Corrected 02/20/06 13:38: CSF TUBE NUMBER, prev report: Tube 1 | PATHOLOGY | + + + + + + + + | Performing | Address | City/State/Zipcode | Phone Number | | Organization | | | | + + + + + | [facility] DEPARTMENT OF | [address] | [place] [address] | | | PATHOLOGY | [address] | | | + + + + + | [facility] DEPARTMENT OF | [address] | [place] [address] | | | PATHOLOGY | [address] | | | + + + + + GLUCOSE, CSF (02/19/2006 6:49 PM PDT) + +---------+ + + + | Component | Value | Ref Range | Performed | Pathologist | | | | | At | Signature | + +---------+ + + + | GLUCOSE CSF | 100 (H) | 40 - 70 mg/dL | [facility] | | | | | | DEPARTMENT | | | | | | OF | | | | | | PATHOLOGY | | + +---------+ + + + + + | Specimen | + + | | + + + + + | Narrative | Performed At | + + + | DIFF Phoned Readback. Tube 5 used for cell count/diff. Free Text | [facility] | | changed 02/20/06 13:38: previously reported as: DIFF Phoned Readback. | DEPARTMENT OF | | * Corrected 02/20/06 13:38: CSF TUBE NUMBER, prev report: Tube 1 | PATHOLOGY | + + + + + + + + | Performing | Address | City/State/Zipcode | Phone Number | | Organization | | | | + + + + + | [facility] | [address] [place] [address] | [place] [address] | | | PATHOLOGY | [address] | | | + + + + + | [facility] | [address] [place] [address] | [place] [address] | | | PATHOLOGY | [address] | | | + + + + + GRAM SMEAR ONLY, STAT (02/19/2006 6:49 PM PDT) + + + + + + | Component | Value | Ref Range | Performed | Pathologist | | | | | At | Signature | + + + + + + | GRAM SMEAR | Rare White blood cells | | [facility] | | | ONLY-[facility] | presentNo organisms | | DEPARTMENT | | | | seen. | | OF | | | | | | PATHOLOGY | | + + + + + + | SMEAR | Gram Smear by cytospin | | [facility] | | | PREPARATION | | | DEPARTMENT | | | | | | OF | | | | | | PATHOLOGY | | + + + + + + | SOURCE BODY | CSF | | [facility] | | | SITE | | | DEPARTMENT | | | | | | OF | | | | | | PATHOLOGY | | + + + + + + + + | Specimen | + + | | + + + + + + + | Performing | Address | City/State/Zipcode | Phone Number | | Organization | | | | + + + + + | [facility] | [address] | [place] [address] | | | PATHOLOGY | [address] | | | + + + + + | [facility] | [address] | [place] [address] | | | PATHOLOGY | [address] | | | + + + + + CSF INFO PANEL (02/19/2006 6:49 PM PDT) + + + + + + | Component | Value | Ref Range | Performed | Pathologist | | | | | At | Signature | + + + + + + | CSF | Bl Tinged | Clear | [facility] | | | APPEARANCE | | | DEPARTMENT | | | | | | OF | | | | | | PATHOLOGY | | + + + + + + | CSF COLOR | Sl Hemol | Colorless | [facility] | | | | | | DEPARTMENT | | | | | | OF | | | | | | PATHOLOGY | | + + + + + + | CSF TUBE | Other | | [facility] | | | NUMBER | | | DEPARTMENT | | | | | | OF | | | | | | PATHOLOGY | | + + + + + + + + | Specimen | + + | | + + + + + | Narrative | Performed At | + + + | DIFF Phoned Readback. Tube 5 used for cell count/diff. Free Text | [facility] | | changed 02/20/06 13:38: previously reported as: DIFF Phoned Readback. | DEPARTMENT OF | | * Corrected 02/20/06 13:38: CSF TUBE NUMBER, prev report: Tube 1 | PATHOLOGY | + + + + + + + + | Performing | Address | City/State/Zipcode | Phone Number | | Organization | | | | + + + + + | [facility] | [address] | [place] [address] | | | PATHOLOGY | [address] | | | + + + + + | [facility] | [address] | [place] [address] | | | PATHOLOGY | [address] | | | + + + + + FLUORO GUIDE/LOC 4 SPINE INJ (02/19/2006 5:35 PM PDT) + + + + + + | Component | Value | Ref Range | Performed | Pathologist | | | | | At | Signature | + + + + + + | FLUORO | Radiologist 1: MILES, | | | | | GUIDE/LOC 4 | SRINI-Radiologist 2: | | | | | SPINE INJ | SHAHIDA SPENCE, | | | | | | M.D.LUMBAR PUNCTURE | | | | | | UNDER FLUOROSCOPY | | | | | | HISTORY: Meningitis | | | | | | TECHNIQUE: PARQ | | | | | | discussion was held with | | | | | | the patient. The | | | | | | patient waspositioned | | | | | | prone on the fluoroscopy | | | | | | table and prepped and | | | | | | drapedin routine sterile | | | | | | fashion. 2 cc of 1% | | | | | | lidocaine local | | | | | | anestheticwas given | | | | | | subcutaneously at the | | | | | | injection site. A 22 | | | | | | gauge 4 3/4inch needle | | | | | | was used to perform | | | | | | lumbar puncture at the | | | | | | L3-4 level.Blood tinged | | | | | | CSF was returned, and 11 | | | | | | cc collected into | | | | | | fivevials, and sent to | | | | | | the lab for analysis. | | | | | | There were | | | | | | nocomplications. | | | | | | Miles was present for | | | | | | the critical portions | | | | | | of theprocedure. | | | | | | IMPRESSION: Successful | | | | | | fluoroscopic guided | | | | | | lumbar puncture. Blood | | | | | | tinged CSFcollected and | | | | | | sent to laboratory. | | | | + + + + + + + + | Specimen | + + | | + + + + + | Narrative | Performed At | + + + | Ordered by ANGY LOTT | | + + + + +---------+ + + | Performing | Address | City/State/Zipcode | Phone Number | | Organization | | | | + +---------+ + + | [facility] DEPARTMENT OF | | | | | RADIOLOGY | | | | + +---------+ + + SPINAL TAP & ASPIRATION (02/19/2006 5:35 PM PDT) + + + + + + | Component | Value | Ref Range | Performed | Pathologist | | | | | At | Signature | + + + + + + | SPINAL TAP | Radiologist 1: MILES | | | | | & | ELIZABETHRadiologist 2: | | | | | ASPIRATION | SHAHIDA SPENCE, | | | | | | M.D.LUMBAR PUNCTURE | | | | | | UNDER FLUOROSCOPY | | | | | | HISTORY: Meningitis | | | | | | TECHNIQUE: PARQ | | | | | | discussion was held with | | | | | | the patient. The | | | | | | patient waspositioned | | | | | | prone on the fluoroscopy | | | | | | table and prepped and | | | | | | drapedin routine sterile | | | | | | fashion. 2 cc of 1% | | | | | | lidocaine local | | | | | | anestheticwas given | | | | | | subcutaneously at the | | | | | | injection site. A 22 | | | | | | gauge 4 3/4inch needle | | | | | | was used to perform | | | | | | lumbar puncture at the | | | | | | L3-4 level.Blood tinged | | | | | | CSF was returned, and 11 | | | | | | cc collected into | | | | | | fivevials, and sent to | | | | | | the lab for analysis. | | | | | | There were | | | | | | nocomplications. | | | | | | Miles was present for | | | | | | the critical portions | | | | | | of theprocedure. | | | | | | IMPRESSION: Successful | | | | | | fluoroscopic guided | | | | | | lumbar puncture. Blood | | | | | | tinged CSFcollected and | | | | | | sent to laboratory. | | | | + + + + + + + + | Specimen | + + | | + + + + + | Narrative | Performed At | + + + | Ordered by ANGY LOTT | | + + + + +---------+ + + | Performing | Address | City/State/Zipcode | Phone Number | | Organization | | | | + +---------+ + + | [facility] DEPARTMENT OF | | | | | RADIOLOGY | | | | + +---------+ + + DIFFERENTIAL (02/19/2006 6:59 AM PDT) + + + + + + | Component | Value | Ref Range | Performed | Pathologist | | | | | At | Signature | + + + + + + | NEUTROPHIL | 74 (H) | 50 - 70 % | [facility] | | | % | | | DEPARTMENT | | | | | | OF | | | | | | PATHOLOGY | | + + + + + + | LYMPHOCYTE | 17 (L) | 18 - 42 % | [facility] | | | % | | | DEPARTMENT | | | | | | OF | | | | | | PATHOLOGY | | + + + + + + | MONOCYTE % | 7 | 2 - 8 % | [facility] | | | | | | DEPARTMENT | | | | | | OF | | | | | | PATHOLOGY | | + + + + + + | EOS % | 1 | 1 - 3 % | [facility] | | | | | | DEPARTMENT | | | | | | OF | | | | | | PATHOLOGY | | + + + + + + | BASO % | 0 | <3 % | [facility] | | | | | | DEPARTMENT | | | | | | OF | | | | | | PATHOLOGY | | + + + + + + | NEUTROPHIL | 10.4 (H) | 1.8 - 7.7 K/cu | [facility] | | | # | | mm | DEPARTMENT | | | | | | OF | | | | | | PATHOLOGY | | + + + + + + | LYMPHOCYTE | 2.4 | 1.0 - 4.8 K/cu | [facility] | | | # | | mm | DEPARTMENT | | | | | | OF | | | | | | PATHOLOGY | | + + + + + + | MONOCYTE # | 1.0 (H) | 0.1 - 0.6 K/cu | [facility] | | | | | mm | DEPARTMENT | | | | | | OF | | | | | | PATHOLOGY | | + + + + + + | EOS # | 0.1 | <0.6 K/cu mm | [facility] | | | | | | DEPARTMENT | | | | | | OF | | | | | | PATHOLOGY | | + + + + + + | BASO # | 0.0 | <0.2 | [facility] | | | | | | DEPARTMENT | | | | | | OF | | | | | | PATHOLOGY | | + + + + + + + + | Specimen | + + | | + + + + + | Narrative | Performed At | + + + | * Corrected 02/19/06 13:09: PASQUALE FARR, prev report: Not | [facility] | | reported | DEPARTMENT OF | | | PATHOLOGY | + + + + + + + + | Performing | Address | City/State/Zipcode | Phone Number | | Organization | | | | + + + + + | [facility] DEPARTMENT OF | [address] | [place] [address] | | | PATHOLOGY | [address] | | | + + + + + | [facility] | [address] | [place] [address] | | | PATHOLOGY | [address] | | | + + + + + SLIDE REVIEW (02/19/2006 6:59 AM PDT) + + | Specimen | + + | | + + + + + | Narrative | Performed At | + + + | * Corrected 02/19/06 13:09: PASQUALE COMMENTS, prev report: Not | [facility] | | reported | DEPARTMENT OF | | | PATHOLOGY | + + + + + + + + | Performing | Address | City/State/Zipcode | Phone Number | | Organization | | | | + + + + + | [facility] DEPARTMENT OF | [address] | [place] [address] | | | PATHOLOGY | [address] | | | + + + + + | [facility] DEPARTMENT OF | [facility] [address] | [place] [address] | | | PATHOLOGY | [address] | | | + + + + + BASIC METABOLIC SET (02/19/2006 6:59 AM PDT) + +---------+ + + + | Component | Value | Ref Range | Performed | Pathologist | | | | | At | Signature | + +---------+ + + + | GLUCOSE, | 152 (H) | 65 - 110 mg/dL | [facility] | | | PLASMA | | | DEPARTMENT | | | (LAB) | | | OF | | | | | | PATHOLOGY | | + +---------+ + + + | BUN, PLASMA | 18 | 6 - 20 mg/dL | [facility] | | | (LAB) | | | DEPARTMENT | | | | | | OF | | | | | | PATHOLOGY | | + +---------+ + + + | CREATININE | 1.0 | 0.7 - 1.3 mg/dL | [facility] | | | PLASMA | | | DEPARTMENT | | | (LAB) | | | OF | | | | | | PATHOLOGY | | + +---------+ + + + | SODIUM, | 136 | 136 - 145 | [facility] | | | PLASMA | | mmol/L | DEPARTMENT | | | (LAB) | | | OF | | | | | | PATHOLOGY | | + +---------+ + + + | POTASSIUM, | 4.2 | 3.5 - 5.1 | [facility] | | | PLASMA | | mmol/L | DEPARTMENT | | | (LAB) | | | OF | | | | | | PATHOLOGY | | + +---------+ + + + | CHLORIDE, | 96 (L) | 98 - 107 mmol/L | [facility] | | | PLASMA | | | DEPARTMENT | | | (LAB) | | | OF | | | | | | PATHOLOGY | | + +---------+ + + + | TOTAL CO2, | 30 (H) | 23 - 29 mmol/L | [facility] | | | PLASMA | | | DEPARTMENT | | | (LAB) | | | OF | | | | | | PATHOLOGY | | + +---------+ + + + | CALCIUM, | 9.2 | 8.5 - 10.5 | [facility] | | | PLASMA | | mg/dL | DEPARTMENT | | | (LAB) | | | OF | | | | | | PATHOLOGY | | + +---------+ + + + + + | Specimen | + + | | + + + + + + + | Performing | Address | City/State/Zipcode | Phone Number | | Organization | | | | + + + + + | [facility] DEPARTMENT OF | [facility] | [place] [address] | | | PATHOLOGY | [address] | | | + + + + + | [facility] DEPARTMENT OF | [address] | [place] [address] | | | PATHOLOGY | [address] | | | + + + + + CBC ONLY WITH PLATELET (02/19/2006 6:59 AM PDT) + + + + + + | Component | Value | Ref Range | Performed | Pathologist | | | | | At | Signature | + + + + + + | WHITE CELL | 14.0 (H) | 4.4 - 11.0 K/cu | [facility] | | | COUNT | | mm | DEPARTMENT | | | | | | OF | | | | | | PATHOLOGY | | + + + + + + | RED CELL | 4.87 | 4.50 - 5.90 | [facility] | | | COUNT | | M/cu mm | DEPARTMENT | | | | | | OF | | | | | | PATHOLOGY | | + + + + + + | HEMOGLOBIN | 15.7 | 13.5 - 17.5 | [facility] | | | | | g/dL | DEPARTMENT | | | | | | OF | | | | | | PATHOLOGY | | + + + + + + | HEMATOCRIT | 43.2 | 41.0 - 53.0 % | [facility] | | | | | | DEPARTMENT | | | | | | OF | | | | | | PATHOLOGY | | + + + + + + | MCV | 88.5 | 80.0 - 96.0 fL | [facility] | | | | | | DEPARTMENT | | | | | | OF | | | | | | PATHOLOGY | | + + + + + + | MCHC | 36.4 (H) | 33.4 - 35.5 | [facility] | | | | | g/dL | DEPARTMENT | | | | | | OF | | | | | | PATHOLOGY | | + + + + + + | RDW | 12.9 | 11.5 - 15.0 % | [facility] | | | | | | DEPARTMENT | | | | | | OF | | | | | | PATHOLOGY | | + + + + + + | PLATELET | 197 | 150 - 400 K/cu | [facility] | | | COUNT | | mm | DEPARTMENT | | | | | | OF | | | | | | PATHOLOGY | | + + + + + + | CBC | Final automated | | [facility] | | | COMMENTS | differential report. | | DEPARTMENT | | | | Smear reviewed. | | OF | | | | | | PATHOLOGY | | + + + + + + + + | Specimen | + + | | + + + + + | Narrative | Performed At | + + + | * Corrected 02/19/06 13:09: PASQUALE COMMENTS, prev report: Not | [facility] | | reported | DEPARTMENT OF | | | PATHOLOGY | + + + + + + + + | Performing | Address | City/State/Zipcode | Phone Number | | Organization | | | | + + + + + | [facility] DEPARTMENT OF | [address] | [place] [address] | | | PATHOLOGY | [address] | | | + + + + + | [facility] | [address] | [place] [address] | | | PATHOLOGY | [address] | | | + + + + + HERPES BY PCR, CSF (02/18/2006 10:32 PM PDT) + + + + + + | Component | Value | Ref Range | Performed | Pathologist | | | | | At | Signature | + + + + + + | HSV BY PCR, | NEGATIVEComment: | | | | | CSF | INTERPRETATION: Herpes | | | | | | Simplex Virus by PCR | | | | | | Negative ..... HSV DNA | | | | | | not detected by PCR. | | | | | | Positive ..... HSV DNA | | | | | | detected by PCR.A | | | | | | negative result does not | | | | | | rule out the presence | | | | | | of PCRreaction | | | | | | inhibitors in the | | | | | | patient specimen or | | | | | | HerpesSimplex Virus DNA | | | | | | in concentrations below | | | | | | the level ofdetection by | | | | | | the assay.Analyte | | | | | | Specific Reagents (ASR) | | | | | | are used in | | | | | | manylaboratory tests | | | | | | necessary for standard | | | | | | medical care | | | | | | andgenerally do not | | | | | | require U.S. Food and | | | | | | Drug | | | | | | Administrationapproval. | | | | | | This test was developed | | | | | | and its | | | | | | performancecharacteristi | | | | | | cs determined by [employer] | | | | | | [employer]It has | | | | | | not been approved by the | | | | | | [place]. Food and | | | | | | DrugAdministration. This | | | | | | test should not be | | | | | | regarded | | | | | | asinvestigational or for | | | | | | research use.This test | | | | | | is performed pursuant to | | | | | | an agreement with[employer] | | | | | | [employer] | | | | | | Test performed by [facility] | | | | | | [employer]. | | | | + + + + + + | SOURCE, INF | CSF | | | | | SER/PCR | | | | | + + + + + + + + | Specimen | + + | | + + + + + + + | Performing | Address | City/State/Zipcode | Phone Number | | Organization | | | | + + + + + | [facility] | [address] | [place], [place] | | | [facility] | | [address] | | + + + + + SPECIMEN ROUTING (02/18/2006 10:32 PM PDT) + + + + + + | Component | Value | Ref Range | Performed | Pathologist | | | | | At | Signature | + + + + + + | SAMPLE | CSF | | [facility] | | | TYPE-ROUTIN | | | DEPARTMENT | | | G | | | OF | | | | | | PATHOLOGY | | + + + + + + | TEST | Hold and Freeze in LCRP | | [facility] | | | REQUESTED | | | DEPARTMENT | | | | | | OF | | | | | | PATHOLOGY | | + + + + + + | SENT TO | Held [facility] | | [facility] | | | | Receiving and | | DEPARTMENT | | | | Processing:Ext [phone] | | OF | | | | | | PATHOLOGY | | + + + + + + + + | Specimen | + + | | + + + + + + + | Performing | Address | City/State/Zipcode | Phone Number | | Organization | | | | + + + + + | [facility] | [address] | [place] [address] | | | PATHOLOGY | [address] | | | + + + + + | [facility] | [address] | [place] [address] | | | PATHOLOGY | [address] | | | + + + + + CULTURE, CSF BACTI (02/18/2006 10:32 PM PDT) + + + + + + | Component | Value | Ref Range | Performed | Pathologist | | | | | At | Signature | + + + + + + | SOURCE BODY | Cerebrospinal Fluid | | | | | SITE | | | | | + + + + + + | CULTURE | CSF Culture | | | | | RESULT | | | | | | | Source...............: | | | | | | Cerebrospinal Fluid RLB | | | | | | Gram Stain...........: | | | | | | Gram smear performed at | | | | | | [facility]. Culture: | | | | | | Preliminary Report: | | | | | | No growth after 1 day. | | | | | | Culture examined | | | | | | daily. Report will | | | | | | be updated if growth | | | | | | occurs. Final | | | | | | Report: No growth after | | | | | | 3 days. Final | | | | | | ReportComment: Test | | | | | | performed at [place] | | | | | | [facility] | | | | | | Laboratory. | | | | + + + + + + + + | Specimen | + + | | + + + + + + + | Performing | Address | City/State/Zipcode | Phone Number | | Organization | | | | + + + + + | [facility] | [address] | [place] [address] | | | LAB-MICRO | | | | + + + + + GLUCOSE, CSF (02/18/2006 9:13 PM PDT) + +-------+ + + + | Component | Value | Ref Range | Performed | Pathologist | | | | | At | Signature | + +-------+ + + + | GLUCOSE CSF | 63 | 40 - 70 mg/dL | [facility] | | | | | | DEPARTMENT | | | | | | OF | | | | | | PATHOLOGY | | + +-------+ + + + + + | Specimen | + + | | + + + + + | Narrative | Performed At | + + + | WBC Phoned Readback. DIFF Phoned Not Readback. Free Text changed | [facility] | | 02/18/06 22:48: previously reported as: WBC Phoned Readback. | DEPARTMENT OF | | | PATHOLOGY | + + + + + + + + | Performing | Address | City/State/Zipcode | Phone Number | | Organization | | | | + + + + + | [facility] DEPARTMENT | [address] | [place] [address] | | | PATHOLOGY | [address] | | | + + + + + | [facility] DEPARTMENT | [address] | [place] [address] | | | PATHOLOGY | [address] | | | + + + + + CELL COUNT DIFF, CSF (02/18/2006 9:13 PM PDT) + +---------+ + + + | Component | Value | Ref Range | Performed | Pathologist | | | | | At | Signature | + +---------+ + + + | CSF WBC | 125 (*) | <6 /cu mm | [facility] | | | | | | DEPARTMENT | | | | | | OF | | | | | | PATHOLOGY | | + +---------+ + + + | CSF RBC | 7050 | /cu mm | [facility] | | | | | | DEPARTMENT | | | | | | OF | | | | | | PATHOLOGY | | + +---------+ + + + | DIFFERENTIA | 100 | | [facility] | | | L CSF | | | DEPARTMENT | | | | | | OF | | | | | | PATHOLOGY | | + +---------+ + + + | NEUTROPHIL( | 18 (*) | <7 % | [facility] | | | CSF) | | | DEPARTMENT | | | | | | OF | | | | | | PATHOLOGY | | + +---------+ + + + | LYMPHOCYTES | 64 | 40 - 80 % | [facility] | | | (CSF) | | | DEPARTMENT | | | | | | OF | | | | | | PATHOLOGY | | + +---------+ + + + | MACROPHAGES | 18 | % | [facility] | | | (CSF) | | | DEPARTMENT | | | | | | OF | | | | | | PATHOLOGY | | + +---------+ + + + + + | Specimen | + + | | + + + + + | Narrative | Performed At | + + + | WBC Phoned Readback. DIFF Phoned Not Readback. Free Text changed | [facility] | | 02/18/06 22:48: previously reported as: WBC Phoned Readback. | DEPARTMENT OF | | | PATHOLOGY | + + + + + + + + | Performing | Address | City/State/Zipcode | Phone Number | | Organization | | | | + + + + + | [facility] DEPARTMENT OF | [address] | [place] [address] | | | PATHOLOGY | [address] | | | + + + + + | [facility] DEPARTMENT OF | [address] | [place] [address] | | | PATHOLOGY | [address] | | | + + + + + CSF INFO PANEL (02/18/2006 9:13 PM PDT) + + + + + + | Component | Value | Ref Range | Performed | Pathologist | | | | | At | Signature | + + + + + + | CSF | Bloody | Clear | [facility] | | | APPEARANCE | | | DEPARTMENT | | | | | | OF | | | | | | PATHOLOGY | | + + + + + + | CSF COLOR | Mod Hemol | Colorless | [facility] | | | | | | DEPARTMENT | | | | | | OF | | | | | | PATHOLOGY | | + + + + + + | CSF TUBE | Tube 4 | | [facility] | | | NUMBER | | | DEPARTMENT | | | | | | OF | | | | | | PATHOLOGY | | + + + + + + + + | Specimen | + + | | + + + + + | Narrative | Performed At | + + + | WBC Phoned Readback. DIFF Phoned Not Readback. Free Text changed | [facility] | | 02/18/06 22:48: previously reported as: WBC Phoned Readback. | DEPARTMENT OF | | | PATHOLOGY | + + + + + + + + | Performing | Address | City/State/Zipcode | Phone Number | | Organization | | | | + + + + + | [facility] DEPARTMENT OF | [address] | [place] [address] | | | PATHOLOGY | [address] | | | + + + + + | [facility] DEPARTMENT | [address] | [place] [address] | | | PATHOLOGY | [address] | | | + + + + + PROTEIN, CSF (02/18/2006 9:13 PM PDT) + +---------+ + + + | Component | Value | Ref Range | Performed | Pathologist | | | | | At | Signature | + +---------+ + + + | TOTAL | 175 (H) | 15 - 45 mg/dL | [facility] | | | PROTEIN CSF | | | DEPARTMENT | | | | | | OF | | | | | | PATHOLOGY | | + +---------+ + + + + + | Specimen | + + | | + + + + + | Narrative | Performed At | + + + | WBC Phoned Readback. DIFF Phoned Not Readback. Free Text changed | [facility] | | 02/18/06 22:48: previously reported as: WBC Phoned Readback. | DEPARTMENT OF | | | PATHOLOGY | + + + + + + + + | Performing | Address | City/State/Zipcode | Phone Number | | Organization | | | | + + + + + | [facility] DEPARTMENT OF | [address] | [place] [address] | | | PATHOLOGY | [address] | | | + + + + + | [facility] DEPARTMENT OF | [address] | [place] [address] | | | PATHOLOGY | [address] | | | + + + + + GRAM SMEAR ONLY, STAT (02/18/2006 9:13 PM PDT) + + + + + + | Component | Value | Ref Range | Performed | Pathologist | | | | | At | Signature | + + + + + + | GRAM SMEAR | Many White blood cells | | [facility] | | | ONLY-[facility] | presentNo organisms | | DEPARTMENT | | | | seen. | | OF | | | | | | PATHOLOGY | | + + + + + + | SMEAR | Specimen | | [facility] | | | PREPARATION | bloody/cloudy;cytospin | | DEPARTMENT | | | | diluted | | OF | | | | | | PATHOLOGY | | + + + + + + | SOURCE BODY | CSF | | [facility] | | | SITE | | | DEPARTMENT | | | | | | OF | | | | | | PATHOLOGY | | + + + + + + + + | Specimen | + + | | + + + + + + + | Performing | Address | City/State/Zipcode | Phone Number | | Organization | | | | + + + + + | [facility] DEPARTMENT OF | [address] | [place] [address] | | | PATHOLOGY | [address] | | | + + + + + | [facility] DEPARTMENT OF | [address] | [place] [address] | | | PATHOLOGY | [address] | | | + + + + + SPINAL TAP & ASPIRATION (02/18/2006 9:09 PM PDT) + + + + + + | Component | Value | Ref Range | Performed | Pathologist | | | | | At | Signature | + + + + + + | SPINAL TAP | Radiologist 1: ADELAIDA | | | | | & | Giselle LOMBARDILUMBAR | | | | | ASPIRATION | PUNCTURE UNDER | | | | | | FLUOROSCOPY History: | | | | | | Headache Comparison | | | | | | studies: Head CT dated | | | | | | 02/18/06. Technique:PARQ | | | | | | discussion was held with | | | | | | the patient. The | | | | | | patient waspositioned | | | | | | prone on the fluoroscopy | | | | | | table and prepped and | | | | | | drapedin routine sterile | | | | | | fashion. 2 cc of 1% | | | | | | lidocaine local | | | | | | anestheticwas given | | | | | | subcutaneously at the | | | | | | injection site. A 22 | | | | | | gauge needlewas used to | | | | | | perform lumbar puncture | | | | | | at the L4-L5 | | | | | | level.Red-tinged, clear | | | | | | CSF was returned, and | | | | | | collected into four | | | | | | vials,and sent to the | | | | | | lab for analysis. | | | | | | There were no | | | | | | complications. | | | | | | FINDINGS:Successful | | | | | | lumbar puncture at the | | | | | | L4-L5 level, with | | | | | | collection ofred-tinged, | | | | | | clear CSF. | | | | | | IMPRESSION:Successful | | | | | | lumbar puncture. | | | | | | Addendum # 1 by Zoie | | | | | | Giselle Daugherty on | | | | | | 20-Mar-2006 06:05 LUMBAR | | | | | | PUNCTURE UNDER | | | | | | FLUOROSCOPY: | | | | | | 02/18/2006 Dictated | | | | | | 03/19/2006 Dr. Daugherty | | | | | | not physically present | | | | | | during procedure. | | | | + + + + + + + + | Specimen | + + | | + + + +---------+ + + | Performing | Address | City/State/Zipcode | Phone Number | | Organization | | | | + +---------+ + + | [facility] DEPARTMENT OF | | | | | RADIOLOGY | | | | + +---------+ + + CT HEAD WO CONTRAST (02/18/2006 3:00 PM PDT) + + + + + + | Component | Value | Ref Range | Performed | Pathologist | | | | | At | Signature | + + + + + + | CT HEAD WO | Radiologist 1: MARGARITA, | | | | | CONTRAST | ELLA, MDCT SCAN OF | | | | | | THE BRAIN WITHOUT | | | | | | CONTRAST: HISTORY:35 | | | | | | year old male with | | | | | | history of brain | | | | | | contusion. | | | | | | Worseningheadaches. | | | | | | TECHNIQUE:Axial CT | | | | | | images of the head were | | | | | | obtained from base of | | | | | | skull tovertex without | | | | | | intravenous contrast, | | | | | | and are submitted for | | | | | | review.Comparison was | | | | | | made to parasite dated | | | | | | 02/13/06. FINDINGS:Again | | | | | | noted is a right | | | | | | inferior frontal | | | | | | hemorrhagic contusion | | | | | | withassociated | | | | | | surrounding edema, there | | | | | | is interval decreased | | | | | | masseffect and right to | | | | | | left midline shift. Also | | | | | | again noted is right | | | | | | temporal extraaxial | | | | | | hemorrhageextending to | | | | | | the tentorium. There | | | | | | is interval dissipation | | | | | | ofsubarachnoid | | | | | | hemorrhage. No major | | | | | | vascular territory | | | | | | infarct is seen. The | | | | | | ventricles and cisterns | | | | | | are unremarkable. There | | | | | | is persistent pansinus | | | | | | opacification. Also | | | | | | again noted isright | | | | | | mastoid opacification, | | | | | | the previously described | | | | | | righttemporal bone | | | | | | fractures are not well | | | | | | visualized. Emergency | | | | | | room was informed of | | | | | | these findings at the | | | | | | time ofinterpretation. | | | | | | IMPRESSION:1. Interval | | | | | | evolution of right | | | | | | inferior frontal | | | | | | hemorrhagiccontusion. | | | | | | Decreased mass effect | | | | | | and right to left | | | | | | midline shift.2. | | | | | | Persistent right | | | | | | temporal extraaxial | | | | | | hemorrhage extending | | | | | | tothe tentorium. | | | | | | Interval dissipation | | | | | | of subarachnoid | | | | | | hemorrhage. | | | | + + + + + + + + | Specimen | + + | | + + + +---------+ + + | Performing | Address | City/State/Zipcode | Phone Number | | Organization | | | | + +---------+ + + | [facility] DEPARTMENT OF | | | | | RADIOLOGY | | | | + +---------+ + + PROTHROMBIN TIME (02/18/2006 2:25 PM PDT) + + + + + + | Component | Value | Ref Range | Performed | Pathologist | | | | | At | Signature | + + + + + + | INR | 0.92Comment: | 0.90 - 1.20 INR | [facility] | | | | PT INR Therapeutic | | DEPARTMENT | | | | ranges for full | | OF | | | | anticoagulation: | | PATHOLOGY | | | | INR for | | | | | | Venous Thromboembolism | | | | | | | | | | | | (2.0-3.0)INR | | | | | | INR for most | | | | | | patients with mech. | | | | | | valves (2.5-3.5)INR | | | | + + + + + + + + | Specimen | + + | | + + + + + + + | Performing | Address | City/State/Zipcode | Phone Number | | Organization | | | | + + + + + | [facility] | [address] | [place] [address] | | | PATHOLOGY | [address] | | | + + + + + | [facility] | [address] | [place] [address] | | | PATHOLOGY | [address] | | | + + + + + CBC, WITH DIFFERENTIAL (02/18/2006 2:25 PM PDT) + + + + + + | Component | Value | Ref Range | Performed | Pathologist | | | | | At | Signature | + + + + + + | WHITE CELL | 13.7 (H) | 4.4 - 11.0 K/cu | [facility] | | | COUNT | | mm | DEPARTMENT | | | | | | OF | | | | | | PATHOLOGY | | + + + + + + | RED CELL | 5.10 | 4.50 - 5.90 | [facility] | | | COUNT | | M/cu mm | DEPARTMENT | | | | | | OF | | | | | | PATHOLOGY | | + + + + + + | HEMOGLOBIN | 16.1 | 13.5 - 17.5 | [facility] | | | | | g/dL | DEPARTMENT | | | | | | OF | | | | | | PATHOLOGY | | + + + + + + | HEMATOCRIT | 46.0 | 41.0 - 53.0 % | [facility] | | | | | | DEPARTMENT | | | | | | OF | | | | | | PATHOLOGY | | + + + + + + | MCV | 90.1 | 80.0 - 96.0 fL | [facility] | | | | | | DEPARTMENT | | | | | | OF | | | | | | PATHOLOGY | | + + + + + + | MCHC | 35.0 | 33.4 - 35.5 | [facility] | | | | | g/dL | DEPARTMENT | | | | | | OF | | | | | | PATHOLOGY | | + + + + + + | RDW | 13.2 | 11.5 - 15.0 % | [facility] | | | | | | DEPARTMENT | | | | | | OF | | | | | | PATHOLOGY | | + + + + + + | PLATELET | 208 | 150 - 400 K/cu | [facility] | | | COUNT | | mm | DEPARTMENT | | | | | | OF | | | | | | PATHOLOGY | | + + + + + + + + | Specimen | + + | | + + + + + + + | Performing | Address | City/State/Zipcode | Phone Number | | Organization | | | | + + + + + | [facility] DEPARTMENT OF | [address] | [place] [address] | | | PATHOLOGY | [address] | | | + + + + + | [facility] OF | [address] | [place] [address] | | | PATHOLOGY | [address] | | | + + + + + APTT (ACT. PART. THROMBO TIME) (02/18/2006 2:25 PM PDT) + + + + + + | Component | Value | Ref Range | Performed | Pathologist | | | | | At | Signature | + + + + + + | APTT | 23.5 (L)Comment: | 26.0 - 36.0 | [facility] | | | | APTT Therapeutic | seconds | DEPARTMENT | | | | Range | | OF | | | | | | PATHOLOGY | | | | (75-120)sec | | | | | | Heparin levels | | | | | | of 0.35-0.7 U/mL | | | | + + + + + + + + | Specimen | + + | | + + + + + + + | Performing | Address | City/State/Zipcode | Phone Number | | Organization | | | | + + + + + | [facility] | [address] | [place] [address] | | | PATHOLOGY | [address] | | | + + + + + | [facility] DEPARTMENT OF | [address] | [place] [address] | | | PATHOLOGY | [address] | | | + + + + + DIFFERENTIAL (02/18/2006 2:25 PM PDT) + + + + + + | Component | Value | Ref Range | Performed | Pathologist | | | | | At | Signature | + + + + + + | NEUTROPHIL | 74 (H) | 50 - 70 % | [facility] | | | % | | | DEPARTMENT | | | | | | OF | | | | | | PATHOLOGY | | + + + + + + | LYMPHOCYTE | 18 | 18 - 42 % | [facility] | | | % | | | DEPARTMENT | | | | | | OF | | | | | | PATHOLOGY | | + + + + + + | MONOCYTE % | 6 | 2 - 8 % | [facility] | | | | | | DEPARTMENT | | | | | | OF | | | | | | PATHOLOGY | | + + + + + + | EOS % | 2 | 1 - 3 % | [facility] | | | | | | DEPARTMENT | | | | | | OF | | | | | | PATHOLOGY | | + + + + + + | BASO % | 1 | <3 % | [facility] | | | | | | DEPARTMENT | | | | | | OF | | | | | | PATHOLOGY | | + + + + + + | NEUTROPHIL | 10.1 (H) | 1.8 - 7.7 K/cu | [facility] | | | # | | mm | DEPARTMENT | | | | | | OF | | | | | | PATHOLOGY | | + + + + + + | LYMPHOCYTE | 2.5 | 1.0 - 4.8 K/cu | [facility] | | | # | | mm | DEPARTMENT | | | | | | OF | | | | | | PATHOLOGY | | + + + + + + | MONOCYTE # | 0.8 (H) | 0.1 - 0.6 K/cu | [facility] | | | | | mm | DEPARTMENT | | | | | | OF | | | | | | PATHOLOGY | | + + + + + + | EOS # | 0.3 | <0.6 K/cu mm | [facility] | | | | | | DEPARTMENT | | | | | | OF | | | | | | PATHOLOGY | | + + + + + + | BASO # | 0.1 | <0.2 | [facility] | | | | | | DEPARTMENT | | | | | | OF | | | | | | PATHOLOGY | | + + + + + + + + | Specimen | + + | | + + + + + + + | Performing | Address | City/State/Zipcode | Phone Number | | Organization | | | | + + + + + | [facility] | [address] | [place] [address] | | | PATHOLOGY | [address] | | | + + + + + | [facility] | [facility] | [place] [address] | | | PATHOLOGY | [address] | | | + + + + + BASIC METABOLIC SET (02/18/2006 2:25 PM PDT) + +---------+ + + + | Component | Value | Ref Range | Performed | Pathologist | | | | | At | Signature | + +---------+ + + + | GLUCOSE, | 123 (H) | 65 - 110 mg/dL | [facility] | | | PLASMA | | | DEPARTMENT | | | (LAB) | | | OF | | | | | | PATHOLOGY | | + +---------+ + + + | BUN, PLASMA | 13 | 6 - 20 mg/dL | [facility] | | | (LAB) | | | DEPARTMENT | | | | | | OF | | | | | | PATHOLOGY | | + +---------+ + + + | CREATININE | 0.7 | 0.7 - 1.3 mg/dL | [facility] | | | PLASMA | | | DEPARTMENT | | | (LAB) | | | OF | | | | | | PATHOLOGY | | + +---------+ + + + | SODIUM, | 135 (L) | 136 - 145 | [facility] | | | PLASMA | | mmol/L | DEPARTMENT | | | (LAB) | | | OF | | | | | | PATHOLOGY | | + +---------+ + + + | POTASSIUM, | 4.2 | 3.5 - 5.1 | [facility] | | | PLASMA | | mmol/L | DEPARTMENT | | | (LAB) | | | OF | | | | | | PATHOLOGY | | + +---------+ + + + | CHLORIDE, | 96 (L) | 98 - 107 mmol/L | [facility] | | | PLASMA | | | DEPARTMENT | | | (LAB) | | | OF | | | | | | PATHOLOGY | | + +---------+ + + + | TOTAL CO2, | 29 | 23 - 29 mmol/L | [facility] | | | PLASMA | | | DEPARTMENT | | | (LAB) | | | OF | | | | | | PATHOLOGY | | + +---------+ + + + | CALCIUM, | 9.1 | 8.5 - 10.5 | [facility] | | | PLASMA | | mg/dL | DEPARTMENT | | | (LAB) | | | OF | | | | | | PATHOLOGY | | + +---------+ + + + + + | Specimen | + + | | + + + + + + + | Performing | Address | City/State/Zipcode | Phone Number | | Organization | | | | + + + + + | [facility] DEPARTMENT OF | [address] | [place] [address] | | | PATHOLOGY | [address] | | | + + + + + | [facility] DEPARTMENT OF | [address] | [place] [address] | | | PATHOLOGY | [address] | | | + + + + + documented in this encounter Visit Diagnoses Not on filedocumented in this encounter"
--- OUTSIDE RECORDS SUMMARY | ~2019-10-18 | XMS | Clinical Summary ---
Demographics + + + | Address | [address] | | | [place] [address] | + + + | Home Phone | | + + + | Preferred Language | Unknown | + + + | Marital Status | | + + + | Yazidi Affiliation | NRP | + + + | Race | White | + + + | Ethnic Group | Not or | + + + Author + + + | Author | NON REVENUE LOCATIONS | + + + | Organization | NON REVENUE LOCATIONS | + + + | Address | Unknown | + + + | Phone | Unavailable | + + + Support + + + + + | Name | Relationship | Address | Phone | + + + + + | Pooja Valdez | ECON | [address] | | | | | [place] | | | | | [address] | | + + + + + Care Team Providers + +------+ + | Care Manager Wind Name | Role | Phone | + +------+ + | Hemalatha Lawrence PA-C | PCP | | + +------+ + Source Comments [facility] is fully live on both [facility] Ambulatory and [facility] InPatient.[facility] Allergies + + + + + + | Active Allergy | Reactions | Severity | Noted | Comments | | | | | Date | | + + + + + + | Pioglitazone Hcl | Headache | | 05/13/20 | | | | | | 17 | | + + + + + + | Cephalexin Hcl | Unknown | | 05/13/20 | | | | | | 17 | | + + + + + + | Metformin | Diarrhea | | 05/13/20 | | | | | | 17 | | + + + + + + Medications + + + +---------+------+------+-------+ | Medication | Sig | Dispensed | Refills | Star | End | Statu | | | | | | t | Date | s | | | | | | Date | | | + + + +---------+------+------+-------+ | levothyroxine 200 | Take 200 mcg by | | 0 | /0 | | Activ | | mcg oral tablet | mouth once daily. 6 | | | 06/27 | | e | | | days a week per pt. | | | 17 | | | + + + +---------+------+------+-------+ | | Place under tongue. | | 0 | | | Activ | | Cyanocobalamin-Cobam | | | | | | e | | amide (B-12 PLUS) | | | | | | | | 5,000-100 mcg | | | | | | | | sublingual tablet, | | | | | | | | sublingual | | | | | | | + + + +---------+------+------+-------+ | LEVOMEFOLATE | Take 15 mcg by mouth | | 0 | | | Activ | | CALCIUM | once daily. | | | | | e | | (L-METHYLFOLATE | | | | | | | | ORAL) | | | | | | | + + + +---------+------+------+-------+ | iron | Take 5,000 mcg by | | 0 | | | Activ | | [id number] | mouth once daily. | | | | | e | | olate 150 mg | | | | | | | | iron-200 mg-250 mcg | | | | | | | | oral tablet | | | | | | | + + + +---------+------+------+-------+ | buPROPion 75 mg | Take 2 tablets by | 120 | 0 | 03/1 | | Activ | | oral tablet | mouth two times | tablet | | 3/20 | | e | | | daily. | | | 18 | | | + + + +---------+------+------+-------+ | gabapentin 300 mg | Take 1 capsule by | | 0 | 03/1 | | Activ | | oral capsule | mouth three times | | | 3/20 | | e | | | daily. Please open | | | 18 | | | | | capsule and [...] via mouth. | | | | | | + + + +---------+------+------+-------+ | metoprolol | Take 1 tablet by | 60 | 0 | 03/1 | | Activ | | tartrate 100 mg oral | mouth two times | tablet | | 3/20 | | e | | tablet | daily. | | | 18 | | | + + + +---------+------+------+-------+ | DULoxetine 60 mg | Take 1 capsule by | | 0 | 03/1 | | Activ | | oral capsule,delayed | mouth once daily. | | | 4/20 | | e | | release(DR/EC) | Please open capsule | | | 18 | | | | | and sprinkle | | | | | | | | contents on acidic | | | | | | | | juice or apple sauce | | | | | | | | (prefer sugar free | | | | | | | | or low sugar) | | | | | | + + + +---------+------+------+-------+ | cholecalciferol | Take 2 capsules by | 180 | 1 | 10/2 | | Activ | | (Vitamin D3) | mouth once daily. | capsule | | 6/20 | | e | | (VITAMIN D3) 2,000 | | | | 18 | | | | unit oral capsule | | | | | | | + + + +---------+------+------+-------+ | fluticasone | Instill 2 sprays | 1 each | 3 | 10/1 | | Activ | | propionate 50 | into each nostril | | | 3/20 | | e | | mcg/actuation nasal | once daily. | | | 19 | | | | spray,suspension | | | | | | | + + + +---------+------+------+-------+ Active Problems + + + | Problem | Noted Date | + + + | Impaired intestinal absorption | 08/31/2018 | + + + | S/P gastric bypass | 01/17/2018 | + + + | Morbid obesity with BMI of 40.0-44.9, adult | 07/08/2017 | + + + | Insulin dependent diabetes mellitus | 07/08/2017 | + + + | Essential hypertension | 07/08/2017 | + + + | Hyperlipidemia | 07/08/2017 | + + + | JOSE on CPAP | 07/08/2017 | + + + Resolved Problems + + + + | Problem | Noted | Resolved | | | Date | Date | + + + + | Acute post-operative pain | 01/19/20 | | | | 18 | 8 | + + + + Encounters +--------+ + + + + | Date | Type | Specialty | Care Team | Description | +--------+ + + + + | 08/21/ | Telephone | Otolaryngology | Santos Valdivia, | | | 2018 | | | MD | | +--------+ + + + + | 08/18/ | Office | Otolaryngology | Santos Valdivia, | Conductive hearing | | 2018 | Visit | | MD | loss, middle ear | | | | | | (Primary Dx); | | | | | | 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; | | | | | | Perforation of left | | | | | | tympanic membrane | +--------+ + + + + | 08/18/ | Travel | | | | | 2018 | | | | | +--------+ + + + + from Last 3 Months Family History + + +------+ + | Medical History | Relation | Name | Comments | + + +------+ + | Diabetes | Brother | | | + + +------+ + | High blood pressure | Brother | | | + + +------+ + | Obesity | Brother | | | + + +------+ + | Obesity | Brother | | | + + +------+ + | Cancer | Father | | | + + +------+ + | High blood pressure | Father | | | + + +------+ + | Parkinson's Disease | Father | | | + + +------+ + | Breast Cancer | Mother | | | + + +------+ + | Diabetes | Mother | | | + + +------+ + | Obesity | Mother | | | + + +------+ + | Stroke | Mother | | age mid 70's | + + +------+ + | Thyroid | Mother | | | + + +------+ + | Diabetes | Sister | | | + + +------+ + | Obesity | Sister | | | + + +------+ + | Cancer | Sister | | | + + +------+ + | Fibromyalgia | Sister | | | + + +------+ + | High blood pressure | Sister | | | + + +------+ + + +------+ + + | Relation | Name | Status | Comments | + +------+ + + | Brother | | Alive | | + +------+ + + | Brother | | Alive | | + +------+ + + | Father | | | | + +------+ + + | Mother | | Alive | | + +------+ + + | Sister | | Alive | | + +------+ + + | Sister | | | | + +------+ + + Social History + +-------+ +--------+ [...] recent travel history available. | + + Last Filed Vital Signs + + + [...] Temperature | 36.7 C (98.1 F) | 08/31/2018 3:35 PM | | | | | PDT | | + + + + + | Respiratory Rate | 18 | 08/31/2018 3:35 PM | | | | | PDT [...] | | + + + + + Plan of Treatment +--------+ + + + + | Date | Type | Specialty | Care Team | Description | +--------+ + + + + | 12/15/ | Office | Pre-operative | 2, [facility] [address] | | | 2019 | Visit | Medicine | [address] | | | | | | [place] [address] | | +--------+ + + + + | 01/04/ | Procedure | Surgery | | | | 2019 | Pass | | | | +--------+ + + + + | 01/25/ | Office | Otolaryngology | Santos Valdivia, | | | 2019 | Visit | | [address] [facility] | | | | | | [address] | | | | | | [place], [place] | | | | | | [address] | | | | | | [phone] | | | | | | | | +--------+ + + + + + + + + + | Health Maintenance | Due Date | Last Done | Comments | + + + + + | Influenza (Flu) | | 08/29/2015, 08/22/2012, | | | vaccination (#1) | 9 | 09/15/2010, Additional history | | | | | exists | | + + + + + | Pneumococcal | Completed | 02/22/2007 | | | vaccination | | | | + + + + + Implants + +------+-------+ +--------+--------+--------+ | Implanted | Type | Area | Manufacture | Device | Shelf | Model | | | | | r | | Expira | / | | | | | | Identi | tion | Serial | | | | | | fier | Date | / Lot | + +------+-------+ +--------+--------+--------+ | Reinforcement Staple Line | | N/A: | [employer] | | 09/07/ | [id number] | | Bioabsorbable Sterile | | Ankle | [employer] | | 2020 | [id number] / | | Seamguard Latex Free | | | | | | | | Disposable Blue Gold Green - | | | | | | /[id number] | | [id number]: Qty: 2 on | | | | | | 575 | | 01/17/2018 by Arvin Altamirano | | | | | | | | MD Luis Felipe at [facility] RE[facility] | | | | | | | | LOC | | | | | | | + +------+-------+ +--------+--------+--------+ | Reinforcement Staple Line | | N/A: | [employer] [facility] | | 03/07/ | [id number] | | Bioabsorbable Sterile | | Ankle | [employer]ATES | | 2019 | 5 / | | Seamguard Latex Free | | | | | | /[id number] | | Disposable Dst Series Ceea 25 | | | | | | 750 | | - [id number]: Qty: 1 | | | | | | | | on 01/17/2018 by Evelia, | | | | | | | | Arvin Briscoe MD at [facility] | | | | | | | | REV LOC | | | | | | | + +------+-------+ +--------+--------+--------+ Procedures + +--------+ + + + | Procedure Name | Priori | Date/Time | Associated Diagnosis | Comments | | | ty | | | | + +--------+ + + + | WI EAR MICROSCOPY | Routin | 08/20/2019 | Conductive hearing | | | EXAMINATION | e | 10:12 PM | loss, middle ear | | | | | PDT | 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 | | | | | | Perforation of left | | | | | | tympanic membrane | | + +--------+ + + + from Last 3 Months Results Not on filefrom Last 3 Months Insurance + +--------+ +--------+ + +------+ | Payer | Benefi | Subscriber | Effect | Phone | Address | Type | | | t Plan | ID | serena | | | | | | / | | Dates | | | | | | Group | | | | | | + +--------+ +--------+ + +------+ | [facility] | PROVID | [phone] | | [phone] | [address] | PPO | | | ENCE | | [phone] | | | | CHOICE | | esent | | [place], | | | | [place] | | | | [place] [address] | | + +--------+ +--------+ + +------+ + +--------+ +--------+ + + | Guarantor Name | Accoun | Relation to | Date | Phone | Billing Address | | | t Type | Patient | of | | | | | | | | | | + +--------+ +--------+ + + | Mynor Valdez | Person | Self | [birth year] | [address] | | | al/Fam | | 1970 | [phone] | [place] [address] | | | katya | | | 3 (Home) | | + +--------+ +--------+ + + Advance Directives + + + + + | Code Status | Date | Date | Comments | | | Activated | Inactivated | | + + + + + | Full Code | 01/17/2018 | 01/19/2018 | | | | 4:31 PM | 6:31 PM | | + + + + + + + + +---+ | | | | | + + + +---+ | Full Code | 01/17/2018 | 01/17/2018 | | | | 5:26 AM | 1:39 PM | | + + + +---+
--- OUTSIDE RECORDS SUMMARY | ~2019-10-18 | XMS | Encounter Summary ---
Demographics + + + | Address | [address] | | | [place] [address] | + + + | Home Phone | | + + + | Preferred Language | Unknown | + + + | Marital Status | | + + + | Mormonism Affiliation | NRP | + + + [...] [place] | | | | | [address] | | + + + + + Care Team Providers + +------+ + | Care Scrap Crane Operator Name | Role | Phone | [...] | | 2017 | | Preventive at [facility] | CHADWICK Am[address] | Auth) | | | | [address] | [address] [place], | | | | | Mailcode: [address] | [place] [address] | | | | | [facility] | [phone] | | | | | and Healing, | | | | | | [address] | | | | | | [place], [place] | | | | | | [address] | | | | | | [phone] | | | +--------+ + + + [...] | Office | Pre-operative | 2, [facility] [address] | | | 2020 | Visit | Medicine | [address] | | | | | | [place] [address] | | +--------+ + + + + [...] Rd | | | | | | [place] | | | | | | [address] | | | | | | [phone] | | | | | | | | +--------+ + + + + documented as of this encounter Visit Diagnoses Not on filedocumented in this encounter"
--- OUTSIDE RECORDS SUMMARY | ~2019-10-18 | XMS | Encounter Summary ---
Demographics + + + | Address | [address] | | | [place] [address] | + + + | Home Phone | | + + + | Preferred Language | Unknown | + + + | Marital Status | | + + + | Hindu Affiliation | NRP | + + + | Race | White | + + + | Ethnic Group | Not or | + + + Author + + + | Author | [facility] | + + + | Organization | [facility] | + + + | Address | Unknown | + + + | Phone | Unavailable | + + + Support + + + + + | Name | Relationship | Address | Phone | + + + + + | Pooja Valdez | ECON | [address] | | | | | [place] | | | | | [address] | | + + + + + Care Team Providers + +------+ + | Care Fresh Foods Technician Name | Role | Phone | + +------+ + | Hemalatha Lawrence PA-C | PCP | | + +------+ + Reason for Visit + + + | Reason | Comments | + + + | Bariatric Nutrition | | + + + Consultation (Routine) +--------+--------+ + + + + | Status | Reason | Specialty | Diagnoses / | Referred By | Referred To | | | | | Procedures | Contact | Contact | +--------+--------+ + + + + | Closed | | Nutrition | | Non-[facility] | Fn | | | | | | Epic Dept | [facility] | | | | | | | [facility] [address] | | | | | | | [address] | | | | | | | Mailcode: | | | | | | | [place] for | | | | | | | Health and | | | | | | | Healing, | | | | | | | [address] | | | | | | | [place], [place] | | | | | | | [address] | | | | | | | Phone: | | | | | | | [phone] | | | | | | | Fax: | | | | | | | [phone] | +--------+--------+ + + + + Encounter Details +--------+---------+ + + + | Date | Type | Department | Care Team | Description | +--------+---------+ + + + | 05/13/ | Office | Digestive Health | [address] | S/P gastric bypass | | 2018 | Visit | Center at [facility] [address] | [address] | (Primary Dx); | | | | [address] | [address] [place], | Insulin dependent | | | | Mailcode: [place] | [place] [address] | diabetes mellitus | | | | for Health and | | ([facility]) | | | | Healing, [address] | | | | | | [place], [place] | | | | | | [address] | | | | | | [phone] | | | +--------+---------+ + + + [...] + + + | Blood Pressure | - | - | | + + + + + | Pulse | - | - | | + [...] + + + + | Weight | 115.7 kg (255 lb 1.6 | 05/13/2018 9:22 AM | | | | oz) | PDT | | + + + + + | Height | - | - | | + + + + + | Body Mass Index | 32.75 | 05/04/2018 8:53 AM | | | | | PDT [...] documented as of this encounter Progress Notes Angie Hernandez, LAVON - 05/13/2018 9:30 AM PDT Nutrition Counseling: Post-op Bariatric Surgery Follow-Up Patient referred by: No Referring Provider Per Patient NO REFERRING PROVIDER PER PT Documented time of visit: 9:25 to 9:43 (18 minutes pwnl-[id number] with patient) Surgery: Gastric Bypass Date of Surgery: 01/17/18 Subjective: Any reported changes: constipation Tolerating Bariatric Diet: Yes Current Physical Activity: Trying. Just joined a gym and was given an exercise plan. Changes in Diabetes Medications since surgery: metformin only Testing blood glucose: yes Objective: Ht Readings from Last 1 Encounters: 05/04/18 1.88 m (6' 2") Wt Readings from Last 2 Encounters: 05/13/18 115.7 kg (255 lb 1.6 oz) 05/04/18 111.1 kg (245 lb) 02/25/18 130.4 kg (287 lb 6.4 oz) 01/25/18 137 kg (302 lb) 01/18/18 149.3 kg (329 lb 2.4 oz) Body mass index is 32.75 kg/m. Weight change since surgery: lost ~74lbs PMHx: Past Medical History: Diagnosis Date Anxiety Depression GERD (gastroesophageal reflux disease) HBP (high blood pressure) Headache High cholesterol Migraine Numbness and tingling JOSE on CPAP Thyroid activity decreased Type 2 diabetes mellitus (HCC) Food logs: No Food choices: Protein Shake - ,2-3/day. Milk, Smart Ones - chicken and broccoli, mashed po tatoes & meatloaf. Tried some almonds and jerky. Tried corn on the cob, watermelon Fluid choices: water, Gatorde Zero Supplementation: multivitamin - gummy, calcium with vitamin D - liquid takes 2Tb/day and vi tamin B12 - dissolving kind. Requested labs be drawn today. Assessment: Appears to be tolerating diet better after last dilation. Seeing GI again on Following Bariatric Diet Protocol: Yes Meeting protein goals: Yes Meeting fluid goals: Yes - as of yesterday Fluids from meals: Yes - says this is difficult but tries to make it a habit. Plan: Reviewed nutrition goals after bariatric surgery. Aim for 64 ounces of fluid and 60-80 grams of protein per day. Continue to follow post-surgery bariatric diet progression: Continue stage 3 according to b ariatric diet guidelines (ok to advance to stage 4 as tolerated) -Provided written & verbal education/review on stage 3 guidelines, including grocery list of stage 3 foods -Continue introducing soft/ground/moist protein foods -Once meeting protein goal consistently, gradually add up to 1/2 cup per meal of soft/cook ed fruits, vegetables, or starches -Continue to eat protein foods first; stop eating as soon as you begin to feel full -Add new foods one at a time -Avoid red meats, hard/crunchy foods, breads, rice, and pasta until 3 months post-surgery -Choose foods with < 14 g sugar & < 5 g fat per serving -Continue fluids from meals by 30 minutes before & after Continue vitamin & mineral supplementation per post-bariatric surgery guidelines -complete multivitamin & mineral (with iron) supplement, 2/day -8925-0541 mg calcium citrate with vitamin D/day (take in divided doses, not within 2 hour s of multivitamin or iron supplement) -500 mcg/day sublingual B12 supplement (or monthly injections) Continued to reinforce importance of mindful eating. Continue to increase physical activity. Follow up when returning to clinic. Angie Hernandez RD, CNSC, LD [facility] [phone] documented in this enco unter Plan of Treatment +--------+ + + + + | Date | Type | Specialty | Care Team | Description | +--------+ + + + + | 12/15/ | Office | Pre-operative | 2, [facility] [address] | | 2019 | Visit | Medicine | [address] | | | | | | [place] [address] | | +--------+ + + + + | 01/04/ | Procedure | Surgery | | | 2019 | Pass | | | | +--------+ + + + + | 01/25/ | Office | Otolaryngology | Santos Valdivia, | | | 2019 | Visit | | [address] [facility] | | | | | | [address] | | | | | | [place], [place] | | | | | | [address] | | | | | | [phone] | | | | | | | | +--------+ + + + + documented as of this encounter Procedures + +--------+ + + + | Procedure Name | Priori | Date/Time | Associated Diagnosis | Comments | | | ty | | | | + +--------+ + + + | CT MNT RE-ASSESSMNT | Routin | 05/13/2018 | S/P gastric bypass | | | X15MIN | e | 10:15 AM | Insulin dependent | | | | | PDT | diabetes mellitus | | | | | | ([facility]) | | + +--------+ + + + documented in this encounter Visit Diagnoses + + | Diagnosis | + + | S/P gastric bypass - Primary Bariatric surgery status | + + | Insulin dependent diabetes mellitus (HCC) Type II or unspecified type diabetes | | mellitus without mention of complication, not stated as uncontrolled | + + documented in this encounter
--- OUTSIDE RECORDS SUMMARY | ~2019-10-18 | XMS | Encounter Summary ---
Demographics + + + | Address | [address] | | | [place] [address] | + + + | Home Phone | | + + + | Preferred Language | Unknown | + + + | Marital Status | | + + + | Jain Affiliation | NRP | + + + [...] [place] | | | | | [address] | | + + + + + Care Team Providers + +------+ + | Care Rounding Machine Operator Name | Role | Phone | [...] | | | | | [address] | | | | | | [address] | | | | | | Mailcode: [address] | | | | | | [address] | | | | | | [address] [place], [place] | | | | | | [address] | | | | | | [phone] | | | +--------+ + + + [...] Office | Pre-operative | 2, Andrés Chambers [address] | | | 2020 | Visit | Medicine | [address] | | | | | | [place] [address] | | +--------+ + + + + [...] Rd | | | | | | [place], [place] | | | | | | [address] | | | | | | [phone] | | | | | | | | +--------+ + + + + documented as of this encounter Visit Diagnoses Not on filedocumented in this encounter"
--- OUTSIDE RECORDS SUMMARY | ~2019-10-18 | XMS | Encounter Summary ---
Demographics + + + | Address | [address] | | | [place] [address] | + + + | Home Phone | | + + + | Preferred Language | Unknown | + + + | Marital Status | | + + + | Holiness Affiliation | NRP | + + + [...] [place] | | | | | [address] | | + + + + + Care Team Providers + +------+ + | Care Rn Managed Care Name | Role | Phone | + [...] | | | | | | | [place] for | | | | | | | Health and | | | | | | | Healing, | | | | | | | [address] | | | | | | | [place], [place] | | | | | | | [address] | | | | | | | Phone: | | | | | | | [phone] | | | | | | | Fax: | | | | | | | [phone] | +--------+--------+ + + + + Encounter Details +--------+---------+ + + + | Date | Type | Department | Care Team | Description | +--------+---------+ + + + | 05/13/ | Office | Digestive Health | [address] | S/P gastric bypass | | 2018 | Visit | Center at [facility] [address] | [address] | (Primary Dx); | | | | [address] | [address] [place], | Insulin dependent | | | | Mailcode: [place] | [place] [address] | diabetes mellitus | | | | for Health and | | ([facility]) | | | | Healing, [address] | | | | | | [place], [place] | | | | | | [address] | | | | | | [phone] | | | +--------+---------+ + + + [...] of visit: 9:25 to 9:43 (18 minutes wyym-oi-oyif with patient) Surgery: Gastric Bypass Date of [...] multivitamin & mineral (with iron) supplement, 2/day -2875-4171 mg calcium citrate with vitamin D/day (take in divided doses, not within 2 hour s of multivitamin or iron supplement) -500 mcg/day sublingual B12 supplement (or monthly injections) Continued to reinforce importance of mindful eating. Continue to increase physical activity. Follow up when returning to clinic. Angie Hernandez RD, CNSC, LD [facility] [phone] documented in this enco unter Plan of Treatment +--------+ + + + + | Date | Type | Specialty | Care Team | Description | +--------+ + + + + | 12/15/ | Office | Pre-operative | 2, [facility] [address] | | 2019 | Visit | Medicine | [address] | | | | | | [place] [address] | | +--------+ + + + + | 01/04/ | Procedure | Surgery | | | 2019 | Pass | | | | +--------+ + + + + | 01/25/ | Office | Otolaryngology | Santos Valdivia, | | | 2019 | Visit | | [address] [facility] | | | | | | [address] | | | | | | [place], [place] | | | | | | [address] | | | | | | [phone] | | | | | | | | +--------+ + + + + documented as of this encounter Procedures + +--------+ + + + | Procedure Name | Priori | Date/Time | Associated Diagnosis | Comments | | | ty | | | | + +--------+ + + + | [place] MNT RE-ASSESSMNT | Routin | 05/13/2018 | S/P gastric bypass | | | X15MIN | e | 10:15 AM | Insulin dependent | | | | | PDT | diabetes mellitus | | | | | | ([facility]) | | + +--------+ + + + [...]
--- OUTSIDE RECORDS SUMMARY | ~2019-10-18 | XMS | Encounter Summary ---
Demographics + + + | Address | [address] | | | [place] [address] | + + + | Home Phone [...] [place] | | | | | [address] | | + + + + + Care Team Providers + +------+ + | Care Accountant Name | Role | Phone | + +------+ + | Hemalatha Lawrence PA-C | PCP | | + +------+ + Encounter Details +--------+ + + + + | Date | Type | Department | Care Team | Description | +--------+ + + + + | 01/19/ | Pharmacy | Outpatient Retail | | | | 2017 | Visit | [facility] | | | | | | [address] | | | | | | [address] [place], [place] | | | | | | [address] | | | | | | [phone] | | | +--------+ + + + [...] 12/15/ | Office | Pre-operative | 2, [facility] [address] | | | 2019 | Visit | Medicine | [address] | | | | | | [place] [address] | | +--------+ + + + + [...] [place] | | | | | | [address] | | | | | | [phone] | | | | | | | | +--------+ + + + + documented as of this encounter Visit Diagnoses Not on filedocumented in this encounter"
--- OUTSIDE RECORDS SUMMARY | ~2019-10-18 | XMS | Encounter Summary ---
Demographics + + + | Address | [address] | | | [place] [address] | + + + | Home Phone | | + + + | Preferred Language | Unknown | + + + | Marital Status | | + + + | Yarsanism Affiliation | NRP | + + + | Race | White | + + + | Ethnic Group | Not or | + + + Author + + + | Author | [facility] | + + + | Organization | [facility] | + + + | Address | Unknown | + + + | Phone | Unavailable | + + + Support + + + + + | Name | Relationship | Address | Phone | + + + + + | Pooja Valdez | ECON | [address] | | | | | [place] | | | | | [address] | | + + + + + Care Team Providers + +------+ + | Care Civil Drafter Name | Role | Phone | + +------+ + | Rian Sanchez MD | PCP | | + +------+ + Encounter Details +--------+ + + + + | Date | Type | Department | Care Team | Description | +--------+ + + + + | 05/12/ | Abstract | Digestive Health | Clinic, Surgery | | | 2017 | | [facility] [address] | | | | | | Trey Barrios | | | | | | Mailcode: Center | | | | | | for Health and | | | | | | Healing, [address] | | | | | | [place], [place] | | | | | | [address] | | | | | | [phone] | | | +--------+ + + + [...] Office | Pre-operative | 2, [address] | | | 2020 | Visit | Medicine | [address] | | | | | | [place] [address] | | +--------+ + + + + [...] Rd | | | | | | [place], [place] | | | | | | [address] | | | | | | [phone] | | | | | | | | +--------+ + + + + documented as of this encounter Visit Diagnoses Not on filedocumented in this encounter"
--- OUTSIDE RECORDS SUMMARY | ~2019-10-18 | XMS | Encounter Summary ---
Demographics + + + | Address | [address] | | | [place] [address] | + + + | Home Phone | | + + + | Preferred Language | Unknown | + + + | Marital Status | | + + + | Gnosticism Affiliation | NRP | + + + | Race | White | + + + | Ethnic Group | Not or | + + + Author + + + | Author | [facility] | + + + | Organization | [facility] | + + + | Address | Unknown | + + + | Phone | Unavailable | + + + Support + + + + + | Name | Relationship | Address | Phone | + + + + + | Pooja Valdez | ECON | [address] | | | | | [place] | | | | | [address] | | + + + + + Care Team Providers + +------+ + | Care Pocketbook Maker Name | Role | Phone | + +------+ + | Rian [place] MD | PCP | | + +------+ + Reason for Referral Consultation (Routine) +--------+--------+ + + + + [...] | | evaluation | [address] | PA-C [address] | | | | | Morbid | [address] | [address] | | | | | obesity, BMI | [place], [place] | [place], [place] | | | | | unknown | [address] | [address] | | | | | (HCC) | Phone: | Phone: | | | | | Hyperlipidem | [phone] | [phone] | | | | | ia, | Fax: | Fax: | | | | | unspecified | [phone] | [phone] | | | | | hyperlipidem | [...] | Comments | + + + | Abnormal Lab Result | | + + + Encounter Details +--------+ + + + + | Date | Type | Department | Care Team | Description | +--------+ + + + + | 07/20/ | Telephone | Digestive Health | Mary Gonsalez, | Abnormal Lab Result | | 2017 | | Center at [facility] [address] | [address] | | | | | [address] | Ave [place], [place] | | | | | Mailcode: [place] | [address] | | | | | for Health and | [phone] | | | | | [place] [address] | | | | | | [place], [place] | | | | | | [address] | | | | | | [phone] | | | +--------+ + + + [...] 12/15/ | Office | Pre-operative | 2, [facility] [address] | | | 2020 | Visit | Medicine | [address] | | | | | | [place] [address] | | +--------+ + + + + [...] Rd | | | | | | [place], [place] | | | | | | [address] | | | | | | [phone] | | | | | | | | +--------+ + + + + documented as of this encounter Visit Diagnoses + + | Diagnosis | + + | Pre-op evaluation - Primary Preoperative examination, unspecified | + + | Morbid obesity, BMI unknown (HCC) Morbid obesity | + + | Hyperlipidemia, unspecified hyperlipidemia type | + + | Essential hypertension | + + | JOSE on CPAP Obstructive sleep apnea (adult) (pediatric) | + + | Abnormal EKG Nonspecific abnormal electrocardiogram (ECG) (EKG) | + + documented in this encounter"
--- OUTSIDE RECORDS SUMMARY | ~2019-10-18 | XMS | Encounter Summary ---
Demographics + + + | Address | [address] | | | [place] [address] | + + + | Home Phone [...] [place] | | | | | [address] | | + + + + + Care Team Providers + +------+ + | Care Ingot Car Operator Name | Role | Phone | + +------+ + | Hemalatha Lawrence PA-C | PCP | | + +------+ + Encounter Details +--------+------+ + + + | Date | Type | Department | Care Team | Description | +--------+------+ + + + | 05/13/ | Lab | Laboratory at [facility] | | S/P gastric bypass; | | 2017 | | [address] | | Impaired intestinal | | | | [place], [place] | | absorption | | | | [address] | | | | | | [phone] | | | +--------+------+ + + + Social History [...] 12/15/ | Office | Pre-operative | [facility], [facility] [address] | | | 2019 | Visit | Medicine | [address] | | | | | | [place] [address] | | +--------+ + + + + | 01/04/ | Procedure | Surgery | | | | 2020 | Pass | | | | +--------+ + + + + | 01/25/ | Office | Otolaryngology | Santos Valdivia, | | | 2019 | Visit | | [address] | | | | | | [address] | | | | | | [place], [place] | | | | | | [address] | | | | | | [phone] | | | | | | | | +--------+ + + + + documented as of this encounter Procedures + +--------+ + + + | Procedure Name | Priori | Date/Time | Associated Diagnosis | Comments | | | ty | | | | + +--------+ + + + | FOLATE, SERUM | Routin | 05/13/2018 | S/P gastric bypass | Results for this | | | e | 11:04 AM | | procedure are in the | | | | PDT | | results section. | + +--------+ + + + | CBC (HEMOGRAM) ONLY | Routin | 05/13/2018 | S/P gastric bypass | Results for this | | | e | 10:49 AM | Impaired | procedure are in the | | | | PDT | intestinal | results section. | | | | | absorption | | + +--------+ + + + | VITAMIN B1, WHOLE | Routin | 05/13/2018 | S/P gastric bypass | Results for this | | BLOOD | e | 10:49 AM | Impaired | procedure are in the | | | | PDT | intestinal | results section. | | | | | absorption | | + +--------+ + + + | VITAMIN D, | Routin | 05/13/2018 | S/P gastric bypass | Results for this | | 25-HYDROXY, SERUM | e | 10:49 AM | Impaired | procedure are in the | | | | PDT | intestinal | results section. | | | | | absorption | | + +--------+ + + + | COMPLETE METABOLIC | Routin | 05/13/2018 | S/P gastric bypass | Results for this | | SET | e | 10:49 AM | Impaired | procedure are in the | | (NA,K,CL,CO2,BUN,CRE | | PDT | intestinal | results section. | | AT,GLUC,CA,AST,ALT,B | | | absorption | | | KARTHIK TOTAL,ALK | | | | | | PHOS,ALB,PROT TOTAL) | | | | | + +--------+ + + + | CBC ONLY | Routin | 05/13/2018 | S/P gastric bypass | Results for this | | | e | 10:49 AM | Impaired | procedure are in the | | | | PDT | intestinal | results section. | | | | | absorption | | + +--------+ + + + | FERRITIN | Routin | 05/13/2018 | S/P gastric bypass | Results for this | | | e | 10:49 AM | Impaired | procedure are in the | | | | PDT | intestinal | results section. | | | | | absorption | | + +--------+ + + + | VITAMIN B-12 | Routin | 05/13/2018 | S/P gastric bypass | Results for this | | | e | 10:49 AM | Impaired | procedure are in the | | | | PDT | intestinal | results section. | | | | | absorption | | + +--------+ + + + | IRON AND TIBC, SERUM | Routin | 05/13/2018 | S/P gastric bypass | Results for this | | | e | 10:49 AM | Impaired | procedure are in the | | | | PDT | intestinal | results section. | | | | | absorption | | + +--------+ + + + documented in this encounter Results FOLATE, SERUM (05/13/2018 11:04 AM PDT) + + + + + + | Component | Value | Ref Range | Performed | Pathologist | | | | | At | Signature | + + + + + + | FOLATE, | >22.3Comment: | >=5.9 ng/mL | [facility] | | | SERUM | INTERPRETIVE | | REG UNIV | | | | INFORMATION: Folate, | | PTH - INTFC | | | | Serum Reference | | | | | | Interval: Less than or | | | | | | equal to 3.9 ng/mL = | | | | | | Deficient 4.0 ng/mL - | | | | | | 5.8 ng/mL = | | | | | | Indeterminate Greater | | | | | | than or equal to 5.9 | | | | | | ng/mL = NormalPerformed | | | | | | by Original,[address] | | | | | | [facility] | | | | | | [address] | | | | | | [phone].ClaimReturn. | | | | | | Laurent mae MD, | | | | | | [...] [facility] | [address] | [place], [place] | | | UNIV PTH - INTFC | | [address] | | + + + + + CBC (HEMOGRAM) ONLY (05/13/2018 10:49 AM PDT) + +-------+ + + + | Component | Value | Ref Range | Performed | Pathologist | | | | | At | Signature | + +-------+ + + + | WHITE CELL | 6.96 | 3.50 - 10.80 | [facility] | | | COUNT | | K/cu mm | LABORATORY | | | | | | SERVICES, | | | | | | [facility] + | | | | | | [facility]AL[facility] | | + +-------+ + + + | RED CELL | 4.74 | 4.50 - 6.00 | [facility] | | | COUNT | | M/cu mm | LABORATORY | | | | | | SERVICES, | | | | | | [facility] | [facility] + | | | | | | [facility]ALING | | + +-------+ + + + | HEMOGLOBIN | 14.7 | 13.5 - 17.5 | [facility] | | | | | g/dL | LABORATORY | | | | | | SERVICES, | | | | | | [facility] | [facility] + | | | | | | [facility]ALING | | + +-------+ + + + | HEMATOCRIT | 42.7 | 41.0 - 53.0 % | [facility] | | | | | | LABORATORY | | | | | | SERVICES, | | | | | | [facility] | [facility] + | | | | | | [facility]ALING | | + +-------+ + + + | MCV | 90.1 | 80.0 - 100.0 fL | [facility] | | | | | | LABORATORY | | | | | | SERVICES, | | | | | | [facility] | [facility] + | | | | | | [facility]ALING | | + +-------+ + + + | MCHC | 34.4 | 32.0 - 36.0 | [facility] | | | | | g/dL | LABORATORY | | | | | | SERVICES, | | | | | | [facility] | [facility] + | | | | | | [facility]ALING | | + +-------+ + + + | RDW SD | 45.6 | 35.1 - 46.3 fL | [facility] | | | | | | LABORATORY | | | | | | SERVICES, | | | | | | [facility] | [facility] + | | | | | | [facility]ALING | | + +-------+ + + + | PLATELET | 179 | 150 - 400 K/cu | [facility] | | | COUNT | | mm | LABORATORY | | | | | | SERVICES, | | | | | | [facility] | [facility] + | | | | | | [facility]ALING | | + +-------+ + + + | MPV | 9.9 | 9.7 - 12.3 fL | [facility] | | | | | | LABORATORY | | | | | | SERVICES, | | | | | | [facility] | [facility] + | | | | | | [facility]ALING | | + +-------+ + + + + + | Specimen | + + | Blood - Blood | | (substance) | + + + + + + + | Performing | Address | City/State/Zipcode | Phone Number | | Organization | | | | + + + + + | [employer] | [address] | [place] [address] | | | [facility] | | | | | HEALTH + HEALING | | | | + + + + + VITAMIN B1, WHOLE BLOOD (05/13/2018 10:49 AM PDT) + + + + + + | Component | Value | Ref Range | Performed | Pathologist | | | | | At | Signature | + + + + + + | VITAMIN B1, | 95Comment: INTERPRETIVE | 70 - 180 nmol/L | [facility] | | | WHOLE | INFORMATION: Vitamin B1, | | REG UNIV | | | BLOOD | Whole Blood This assay | | PTH - INTFC | | | | measures the | | | | | [...] | | | | | determined by [facility] | | | | | | Laboratories. See | | | | | | Compliance Statement B: | | | | | | ClaimReturn.GOVECS/CSPerformed | | | | | | by Original,[address] | | | | | | [address] [facility] [place] | | | | | | [address] | | | | | | [phone].ClaimReturn. | | | | | | com, [...] [facility] | [address] | [place], [place] | | | UNIV PTH - INTFC | | [address] | | + + + + + COMPLETE METABOLIC SET (NA,K,CL,CO2,BUN,CREAT,GLUC,CA,AST,ALT,BILI TOTAL,ALK PHOS,ALB,PROT TOTAL) (05/13/2018 10:49 AM PDT) + +---------+ + + + | Component | Value | Ref Range | Performed | Pathologist | | | | | At | Signature | + +---------+ + + + | GLUCOSE, | 118 (H) | 70 - 99 mg/dL | [facility] | | | PLASMA | | | LABORATORY | | | (LAB) | | | SERVICES, | | | | | | CORE | | + +---------+ + + + | BUN, PLASMA | 17 | 6 - 20 mg/dL | [facility] | | | (LAB) | | | LABORATORY | | | | | | SERVICES, | | | | | | CORE | | + +---------+ + + + | CREATININE | 0.78 | 0.70 - 1.30 | [facility] | | | PLASMA | | mg/dL | LABORATORY | | | (LAB) | | | SERVICES, | | | | | | CORE | | + +---------+ + + + | EGFR | >60 | >60 mL/min | [facility] | | | - | | | LABORATORY | | | BAHAMIAN | | | SERVICES, | | | [...] +---------+ + + + | POTASSIUM, | 3.8 | 3.4 - 5.0 | [facility] | | | PLASMA | | mmol/L | LABORATORY | | | (LAB) | | | SERVICES, | | | | | | CORE | | + +---------+ + + + | CHLORIDE, | 105 | 97 - 108 mmol/L | [facility] | | | PLASMA | | | LABORATORY | | | (LAB) | | | SERVICES, | | | | | | CORE | | + +---------+ + + + | TOTAL CO2, | 28 | 21 - 32 mmol/L | [facility] | | | PLASMA | | | LABORATORY | | | (LAB) | | | SERVICES, | | | | | | CORE | | + +---------+ + + + | CALCIUM, | 9.7 | 8.6 - 10.2 | [facility] | | | PLASMA | | mg/dL | LABORATORY | | | (LAB) | | | SERVICES, | | | | | | CORE | | + +---------+ + + + | CALCIUM(ALB | 9.7 | 8.6 - 10.2 | [facility] | | | CORRECTED) | | mg/dL | LABORATORY | | | | | [...] +---------+ + + + | TOTAL | 7.6 | 6.4 - 8.2 g/dL | [facility] | | | PROTEIN, | | | LABORATORY | | | PLASMA | | | SERVICES, | | | (LAB) | | | CORE | | + +---------+ + + + | ALBUMIN, | 4.0 | 3.5 - 4.7 g/dL | [facility] | | | PLASMA | | | LABORATORY | | | (LAB) | | | SERVICES, | | | | | | CORE | | + +---------+ + + + | ALK PHOS | 91 | 53 - 128 U/L | [facility] | | | | | | LABORATORY | | | | | | SERVICES, | | | | | | CORE | | + +---------+ + + + | AST(SGOT) | 23 | <=41 U/L | [facility] | | | | | | LABORATORY | | | | | | SERVICES, | | | | | | CORE | | + +---------+ + + + | ALT (SGPT) | 33 | <=60 U/L | [facility] | | | | | | LABORATORY | | | | | | SERVICES, | | | | | | CORE | | + +---------+ + + + | ANION GAP | 6 | 4 - 11 mmol/L | [facility] | | | | | | LABORATORY | | | | | | SERVICES, | | | | | | CORE | | + +---------+ + + + | ANION | 6 | 4 - 11 mmol/L | [facility] [...] | + +---------+ + + + | BILI T CMNT | No Hemo | | [facility] | | | | | | LABORATORY | | | | | | SERVICES, | | | | | | CORE | | + +---------+ + + + | AST CMNT | No Hemo | | [facility] [...] Performed At | + + + | GFR is estimated using the MDRD equation recommended by the | [facility] | | National Kidney Disease Education Program. Estimated GFR | LABORATORY | | Interpretive Information: <60 mL/min/1.73 sq m | SERVICES, CORE | | Chronic Kidney Disease <15 mL/min/1.73 sq m | | | Kidney Failure Estimated GFR greater that 60 mL/min/1.73 sq m is of | | | limited clinical value. The MDRD equation is not valid in the | | | following situations: - Patients under 18 years of age - Severe | | | malnutrition or obesity - Vegetarian diet - Rapidly changing kidney | | | function - Amputees, paraplegics, or other muscle-wasting diseses | | + + + + + + + + | Performing | Address | City/State/Zipcode | Phone Number | | Organization | | | | + + + + + | [facility] [employer] | [address] | [place] [address] | | | SERVICES, [place] | [address] | | | + + + + + IRON AND TIBC (05/13/2018 10:49 AM PDT) + +-------+ + + + | Component | Value | Ref Range | Performed | Pathologist | | | | | At | Signature | + +-------+ + + + | IRON | 93 | 50 - 170 ug/dL | [facility] | | | | | | LABORATORY | | | | | | SERVICES, | | | | | | CORE | | + +-------+ + + + | IRON BIND | 389 | 240 - 450 ug/dL | [facility] | | | CAP | | | LABORATORY | | | | | | SERVICES, | | | | | | CORE | | + +-------+ + + + | % | 24 | 20 - 50 % | [facility] | | | SATURATION | | | LABORATORY | | | TRANSFERRIN | | | SERVICES, | | | , | | | CORE | | + +-------+ + + + + + | Specimen | + + | Blood - Blood | | (substance) | + + + + + + + | Performing | Address | City/State/Zipcode | Phone Number | | Organization | | | | + + + + + | [facility] | [address] | [place] [address] | | | SERVICES, CORE | [address] | | | + + + + + VITAMIN B-12 (05/13/2018 10:49 AM PDT) + +-------+ + + + | Component | Value | Ref Range | Performed | Pathologist | | | | | At | Signature | + +-------+ + + + | VITAMIN B12 | 634 | 193 - 986 pg/mL | [facility] | | | | | | LABORATORY | | | | | | SERVICES, | | | | | | CORE | | + +-------+ + + + | COMMENT | 1 | | [facility] | | | (HEMO) | | | LABORATORY | | | | | | SERVICES, | | | | | | CORE | | + +-------+ + + + | COMMENT | 1 | | [facility] | | | (ICTERUS) | | | LABORATORY | | | | | | SERVICES, | | | | | | CORE | | + +-------+ + + + | COMMENT | 1 | | [facility] | | | (LIPEMIA) | | | LABORATORY | | | [...] | + + + + + | [employer] | [address] | [place] [address] | | | SERVICES, CORE | [address] | | | + + + + + FERRITIN (05/13/2018 10:49 AM PDT) + + + + + + | Component | Value | Ref Range | Performed | Pathologist | | | | | At | Signature | + + + + + + | FERRITIN | 70Comment: Male and | 50 - 200 ng/mL | [facility] | | | | Female >18 years: | | LABORATORY | | | | <20 ng/mL: | | SERVICES, | | | | Consistant with iron | | CORE | | | | deficiency 21-50 | | | | | | ng/mL: Possible | | | | | | iron deficiency 51-99 | | | | | | ng/mL: Iron | | | | | | deficiency unlikely | | | | | | unless inflammation | | | | | | present or | | | | | | patient | | | | | | >65 years of age | | | | | | 100-200 ng/mL: | | | | | | Normal, not consistent | | | | | | with iron deficiency | | | | | | >200 ng/mL: If | | | | | | transferrin saturation | | | | | | >45%, consider | | | | | | hemochromatosis | | | | + + + + + + + + | Specimen | + + | Blood - Blood | | (substance) | + + + + + + + | Performing | Address | City/State/Zipcode | Phone Number | | Organization | | | | + + + + + | [facility] | [address] | [place] [address] | | | SERVICES, CORE | [address] | | | + + + + + VITAMIN D, 25-HYDROXY, SERUM (05/13/2018 10:49 AM PDT) + +-------+ + + + | Component | Value | Ref Range | Performed | Pathologist | | | | | At | Signature | + +-------+ + + + | VITAMIN D | 46.0 | 30 - 80 ng/mL | [facility] [...] | + + + + + | [facility] [employer] | [address] | [place] [address] | | | SERVICES, CORE | [address] | | | + + + + + documented in this encounter Visit Diagnoses + + | Diagnosis | + + | S/P gastric bypass Bariatric surgery status | + + | 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
--- OUTSIDE RECORDS SUMMARY | ~2019-10-18 | XMS | Encounter Summary ---
Demographics + + + | Address | [address] | | | [place] [address] | + + + | Home Phone | | + + + | Preferred Language | Unknown | + + + | Marital Status | | + + + | Latter Day Affiliation | NRP | + + + [...] + + + + + | Pooja Nguyễn | ECON | [address] | | | | | [place] | | | | | [address] | | + + + + + Care Team Providers + +------+ + | Care Prototype Special Build Name | Role | Phone | + +------+ + | No Pcp Per Patient | PCP | Unavailable | + +------+ + Encounter Details +--------+ + + + + | Date | Type | Department | Care Team | Description | +--------+ + + + + | 06/03/ | Letter-Feng | | Letter, Clinic | Letters | | 2006 | scribed | | | | +--------+ + + [...] as of this encounter Progress Notes Interface, Supervisor Pleating In - 06/05/2006 2:05 AM PDT [id number] 06/03/2006 06/03/2006 [id number] DELMA PAULSON [id number] [place] [address] [place] [address] or Department of Otolaryngology - [facility] June 03, 2006 Tavo Dietz M.D. [address] [place] [address], [address] [place] [address] RE: KHURRAM NGUYỄN MR #: [id number] Dear Dr. Dietz: It was my pleasure to see Khurram Nguyễn in followup today. He states he is still having some headache which he describes primarily at the top of his head. He states that this is similar pain as that he experienced after his previous sinus surgery. He states it is relatively dull and tends to be there on a regular basis. He was treated with some antibiotics recently and did notice that Levaquin at 750 mg a day for 14 days gave him much benefit. He ran out of Flonase some time back and has not been taking that. On physical exam, he is a well-developed, well-nourished male in no apparent distress. He seems to be comfortable in the clinic but does describe the chronic headache. Anterior rhinoscopy revealed evidence of previous surgery. I do not see any clear fluid leaking from the nostrils on either side. Procedure: Diagnostic nasal endoscopy. Anesthesia: Topical 4% lidocaine. Description of procedure: A 30-degree, 4-mm scope was used for endoscopy. This does show some lateralization of the middle turbinates bilaterally. I am unable to see into the ethmoid cavity on either side. I do not see any active purulence but there is a lot of mucosal edema affecting all of the surfaces. I understand that he underwent a CT scan of the paranasal sinuses recently which showed opacification of the right sphenoid and right maxillary sinuses. I have discussed options with Mr. Nguyễn and his today. Based on the endoscopic exam and the report of the CT scan that was done recently, I do agree that he will likely require some more endoscopic sinus surgery. I do not see any evidence of CSF leak at this time. I am not sure whether his headaches are related to his sinus disease or if they are related to the bleeding that occurred previously but it does not seem to be resolving, so it is probably more likely related to sinus disease. We have begun a discussion about revision endoscopic surgery, and I am going to obtain an image-guided CT scan in multiple plains to review prior to the surgery. I am also placing him on a brief prednisone taper to see if that helps with his symptoms at all. We are also restarting the topical Flonase spray. I hope to review the CT scan with him in the near future and begin the process of scheduling revision surgery. It is certainly my pleasure to participate in his care and if you have any thoughts or comments, please do not hesitate to contact me. Yours sincerely, Santos Kwan MD, MPH, FACS Director, [facility] Professor of Otolaryngology/Head and Neck Surgery [facility] / [id number] / [id number] / [id number] / documented i n this encounter Plan of Treatment +--------+ + + + + | Date | Type | Specialty | Care Team | Description | +--------+ + + + + | 12/15/ | Office | Pre-operative | 2, [facility] [address] | | | 2020 | Visit | Medicine | [address] | | | | | | [place] [address] | | +--------+ + + + + [...] Rd | | | | | | [place] | | | | | | [address] | | | | | | [phone] | | | | | | | | +--------+ + + + + documented as of this encounter Visit Diagnoses Not on filedocumented in this encounter"
--- OUTSIDE RECORDS SUMMARY | ~2019-10-18 | XMS | Encounter Summary ---
Demographics + + + | Address | [address] | | | [place] [address] | + + + | Home Phone [...] + + + | Author | [facility] | + + + | Organization | [facility] | + + + | Address | Unknown | + + + | Phone | Unavailable | + + + Support + + + + + | Name | Relationship | Address | Phone | + + + + + | Pooja Valdez | ECON | [address] | | | | | [place] | | | | | [address] | | + + + + + Care Team Providers + +------+ + | Care Documentation Improvement Specialist Name | Role | Phone | + +------+ + PCP | Unavailable | + +------+ + Reason for Visit + + + | Reason | Comments | + + + | Follow-up visit | Pt states complaint of constant headache. | + + + Encounter Details +--------+---------+ + + + | Date | Type | Department | Care Team | Description | +--------+---------+ + + + | 03/09/ | Office | Otolaryngology | Santos Kwan, | Chronic Ethmoidal | | 2005 | Visit | [facility] [address] | [address] | Sinusitis; Chronic | | | | [address] | [place], [place] | Maxillary Sinusitis | | | | Mailcode: OP01 | [address] | | | | | [facility] | [phone] | | | | | [place], [place] | | | | | | [address] | | | | | | [phone] | | | +--------+---------+ + + + [...] documented as of this encounter Progress Notes Santos Kwan - 03/09/2006 2:54 PM PDTThis office note has been dictated. documented in this encou nter Plan of Treatment +--------+ + + + + | Date | Type | Specialty | Care Team | Description | +--------+ + + + + | 12/15/ | Office | Pre-operative | [facility], [facility] [address] | | | 2019 | Visit | Medicine | [address] | | | | | | [place] [address] | | +--------+ + + + + | 01/04/ | Procedure | Surgery | | | | 2019 | Pass | | | | +--------+ + + + + | 01/25/ | Office | Otolaryngology | Santos Valdivia, | | | 2019 | Visit | | MD [address] | | | | | | [address] | | | | | | [place], [place] | | | | | | [address] | | | | | | [phone] | | | | | | | | +--------+ + + + + + + +--------+ + + | Name | Type | Priori | Associated Diagnoses | Order Schedule | | | | ty | | | + + +--------+ + + | NASAL ENDOSCOPY, | Procedures | Routin | Chronic Ethmoidal | Ordered: 03/09/2006 | | DIAGNOSTIC | | e | Sinusitis Chronic | | | | | | Maxillary Sinusitis | | + + +--------+ + + documented as of this encounter Visit Diagnoses + + | Diagnosis | + + | Chronic ethmoidal sinusitis | + + | Chronic maxillary sinusitis | + + documented in this encounter"
--- OUTSIDE RECORDS SUMMARY | ~2019-10-18 | XMS | Encounter Summary ---
Demographics + + + | Address | [address] | | | [place] [address] | + + + | Home Phone | | + + + | Preferred Language | Unknown | + + + | Marital Status | | + + + | Congregational Affiliation | NRP | + + + [...] [place] | | | | | [address] | | + + + + + Care Team Providers + +------+ + | Care Scientific Editor Name | Role | Phone | + +------+ + | No Pcp Per Patient | PCP | Unavailable | + +------+ + Encounter Details +--------+ + + + + | Date | Type | Department | Care Team | Description | +--------+ + + + + | 02/19/ | H&P-Transcr | | Physical, History | Hstry & Physical | | 2005 | ibed | | & | | +--------+ + + + + [...] | Office | Pre-operative | [address] | | | 2019 | Visit | Medicine | [address] | | | | | | [place] [address] | | +--------+ + + + + | 01/04/ | Procedure | Surgery | | | | 2019 | Pass | | | | +--------+ + + + + | 01/25/ | Office | Otolaryngology | Santos Valdivia, | | | 2019 | Visit | | [address] | | | | | | [address] | | | | | | [place] | | | | | | [address] | | | | | | [phone] | | | | | | | | +--------+ + + + + documented as of this encounter Visit Diagnoses Not on filedocumented in this encounter"
--- OUTSIDE RECORDS SUMMARY | ~2019-10-18 | XMS | Encounter Summary ---
Demographics + + + | Address | [address] | | | [place] [address] | + + + | Home Phone [...] [place] | | | | | [address] | | + + + + + Care Team Providers + +------+ + | Care Airport Representative Name | Role | Phone | + +------+ + | Rian Sanchez MD | PCP | | + +------+ + Reason for Visit + + + | Reason | Comments | + + + | Evaluation AND/OR | | | management - new | | | patient | | + + + Consultation (Routine) +--------+---------+ + + + + | Status | Reason | Specialty | Diagnoses / | Referred By | Referred To | | | | | Procedures | Contact | Contact | +--------+---------+ + + + + | Closed | Other | Pain | Diagnoses | Gonsalez, | Pool Lifeguard Psych | | | | Management | Morbid | RIZWANA HernandezP | [address] | | | | | obesity with | [address] | | | | | BMI of | [address] | Mailcode: | | | | | 40.0-44.9, | [place], [place] | [address] | | | | | adult (HCC) | [address] | for Health | | | | | Insulin | Phone: | and Healing, | | | | | dependent | [phone] | [address], | | | | | diabetes | Fax: | 15th Floor | | | | | mellitus | [phone] | [place], [place] | | | | | (HCC) | | [address] | | | | | Essential | | Phone: | | | | | hypertension | | [phone] | | | | | | | Fax: | | | | | Hyperlipidem | | [phone] | | | | | ia, | [...] | | | | | | | CT | | | | | | | PSYCHIATRIC | | | | | | | DIAGNOSTIC | | | | | | | EVAL, NO MED | | | | | | | SVCS CT | | | | | | | PSYCH TSTNG | | | | | | | PSYCH/PHYS | | | +--------+---------+ + + + + Encounter Details +--------+---------+ + + + | Date | Type | Department | Care Team | Description | +--------+---------+ + + + | 09/03/ | Office | [facility] | Rian Chapman, | Morbid obesity with | | 2016 | Visit | [address] | PhD [address] | BMI of 40.0-44.9, | | | | [address] Mailcode: | [address] [place], [place] | adult ([facility]) (Primary | | | | [facility] for | [address] | Dx); Major | | | | Health and Healing, | [phone] | depressive disorder, | | | | Building | | recurrent, in | | | | Floor [place], [place] | | partial remission | | | | [address] | | ([facility]); Insulin | | | | [phone] | | dependent diabetes | | | | | | mellitus ([facility]) | +--------+---------+ + + + Social History [...] documented as of this encounter Progress Notes Rian Chapman, PhD - 09/03/2017 7:50 AM PDTPROGRESS NOTE: BARIATRIC EVALUATION (INCLUDING DIET AND EXERCISE COUNSELING) Consultation Date: 09/03/2017 Name: Mynor Valdez : 1970 Medical Record: [id number] Age:47 y.o. Weight: 328 lbs BMI: 42 Identifying Information: Mynor Vladez is a 47 y.o. male who lives with his , her victorina short and his daughter in [place], [place]. He was referred for psychological evaluation and counseling on diet and exercise prior to bariatric surgery. Informed consent and limits of confidentiality were discussed prior to the interview. Please see medical records for previous attempts at weight management. Recent Changes in Eating and Dietary Styles: He eats 3-6 times per day. He has been improving food choices, reducing portions, chewing completely, and drinking from eating. He needs to eat more consistently during h is work day. Water: 64 oz per day Soda: rare Coffee: rare Binge: Denied Overeating: He has history of overeating but has recently reduced his portions. Night eating syndrome: Denied Compensatory Behaviors: The patient denied any compensatory behaviors such as vomiting, ov er-exercising, or using emetics or diuretics. Knowledge of Morbid Obesity & Surgical Intervention: The patient appears to have good knowl edge. He viewed an informational presentation, has spoken with people who have had bariatri c surgery, has done online reading, and has read the Bariatric Surgery Notebook. Daily Activity and Functioning: The patient described a moderately active lifestyle in ich he works full-time at a job that requires a lot of walking. He reported sharing the [place] chores. For enjoyment the patient does family activities, home projects and uses [employer]. He is socially active with family. He reported occasionally riding a stationary bike for exercise. Mental Status: Mynor Valdez arrived on time for the appointment dressed in clean, casual clothing. He was interviewed alone. He was alert, oriented, pleasant and cooperative. Sp eech was fluent and thought content was logical and relevant. Eye contact was good. Affect was normal and appropriate. Mood was cheerful. Emotional Symptoms: The patient has history of depression but his symptoms are controlled w ith medication. He reported occasional sleep disturbance but he denied other symptoms of de pression including depressed mood, sadness, anhedonia, irritability, low energy, hopeless or helpless feelings, and suicidal ideation or intent. The patient has history of anxiety but his symptoms are controlled with medication. He den ied symptoms of anxiety including anxious feelings, racing thoughts and physical agitation. Mental Health History: The patient takes medication for anxiety and depression and he has had some counseling in the past. He is not currently in counseling. Emotional Coping: He appears to have good personal coping skills and good social support. Substance Use: Tobacco: denied Alcohol: a few drinks per year. Other drug use: denied History of substance abuse treatment: denied Social History: Mynor Valdez was raised by both parents. He described a healthy and schmidt ppy childhood in which his material, emotional and social needs were met. He denied history of any type of abuse. He reported family history of obesity. Relationship Status: on July 31, 2017. They have been together for 2 years. He described a stable and supportive relationship and his supports his desire for osiel leopoldo. She is slightly overweight. Children: He has 2 grown daughters and a 7-year-old daughter. His children are overweight . Plan for Support After Surgery: He appears to have an adequate plan of care. His guille l provide any needed care after surgery. Education and Profession: G. 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 Current Life Stressors: He described normal life stress. Goals and Expectations: He would like to improve his health and increase his activity and m obility. Psychological testing: PHQ-9= 1 TEE= 5 RSE= 14 Interpretation of Testing: The patient's score on the Patient Health Questionnaire-9 sugges ts minimal depression. This is consistent with his reported symptoms and presentation durin g the interview. The patient's score on the Amato Anxiety Inventory suggests minimal anxiety. This is consis tent with his reported symptoms and presentation during the interview. The patient's score on the High Self-Esteem Scale suggests good self-esteem. This is consistent with his reported symptoms and presentation during the interview. Testing Performed Today: Patient Health Questionnaire-9 Amato Anxiety Inventory High Self esteem Scale Weight and Lifestyle Inventory (MELONIE) (shortened) CONCLUSIONS: Mynor Valdez appears from a psychological perspective to be an appropriate candidate for bariatric surgery. He appears to have adequate knowledge and understanding o f the procedure and the required behavior changes and seems to have realistic goals and expe ctations. He does not appear to have significant psychological factors to contraindicate th e surgery. He has history of depression and anxiety but his symptoms are well controlled an d do not present a problem at this time. He has good insight and social support. He has be en making very good changes to prepare for surgery. He clearly understands the need to have new habits in place prior to surgery. As he continues to follow the recommendations he has been given I anticipate that he will have successful weight loss. Diagnosis: 1. Morbid obesity 2. Major depressive disorder, recurrent, in partial remission 3. Diabetes RECOMMENDATIONS: 1. Mynor Valdez appears from a psychological perspective to be an appropriate candidate for bariatric surgery. 2. No psychological treatment is recommended at this time. He should return for psycholog y follow-up 3 months after surgery. 3. He is urged to improve his consistency with following the community development officer's recommendations, especially eating more consistently throughout his work day. 4. He is urged to establish a clear routine for physical activity that he can begin now an d continue after surgery. 5. He should continue to participate in a Bariatric Surgery Support Group. Total time I spent was approximately 50 minutes [id number] with the patient and approxima tely 1 hour 45 minutes of yzd-yitt-zk-face testing, interpreting and synthesizing results. Rian Chapman, PhD [facility] [address] [facility] Mail Code: [id number] [place] [address] documented in this en counter Plan of Treatment +--------+ + + + + | Date | Type | Specialty | Care Team | Description | +--------+ + + + + | 12/15/ | Office | Pre-operative | [facility] [address] | | | 2019 | Visit | Medicine | [address] | | | | | | [place] [address] | | +--------+ + + + + [...] Rd | | | | | | [place], [place] | | | | | | [address] | | | | | | [phone] | | | | | | | | +--------+ + + + + documented as of this encounter Visit Diagnoses + + | Diagnosis | + + | Morbid obesity with BMI of 40.0-44.9, adult ([facility]) - Primary | + + | Major depressive disorder, recurrent, in partial remission ([facility]) Major depressive | | disorder, recurrent episode, in partial or unspecified remission | + + | Insulin dependent diabetes mellitus (HCC) Type II or unspecified type diabetes | | mellitus without mention of complication, not stated as uncontrolled | + + documented in this encounter"
--- OUTSIDE RECORDS SUMMARY | ~2019-10-18 | XMS | Encounter Summary ---
Demographics + + + | Address | [address] | | | [place] [address] | + + + | Home Phone | | + + + | Preferred Language | Unknown | + + + | Marital Status | | + + + | Taoist Affiliation | NRP | + + + [...] [place] | | | | | [address] | | + + + + + Care Team Providers + +------+ + | Care Core Inspector Name | Role | Phone | + +------+ + | Hemalatha Lawrence PA-C | PCP | | + +------+ + Encounter Details +--------+ + + + + | Date | Type | Department | Care Team | Description | +--------+ + + + + | 02/13/ | Hospital | Registration [address] | Edu Arzate MD | | | 2005 | Activity | [address] | [address] | | | | | [place] Mailcode: [id number] | [place], | | | | | [place], [place] | [place] [address] | | | | | [address] | [phone] | | | | | [phone] | | | +--------+ + + + [...] | Office | Pre-operative | 2, [facility] [address] | | | 2020 | Visit | Medicine | [address] | | | | | | [place] [address] | | +--------+ + + + + [...] Rd | | | | | | [place], [place] | | | | | | [address] | | | | | | [phone] | | | | | | | | +--------+ + + + + documented as of this encounter Procedures + +--------+ + + + | Procedure Name | Priori | Date/Time | Associated Diagnosis | Comments | | | ty | | | | + +--------+ + + + | CT HEAD WWO CONTRAST | Routin | 02/13/2006 | | Results for this | | | e | 3:30 PM | | procedure are in the | | | | PDT | | results section. | + +--------+ + + + | CT SINUS WO CONTRAST | Routin | 02/13/2006 | | Results for this | | ROUTINE | e | 3:30 PM | | procedure are in the | | | | PDT | | results section. | + +--------+ + + + | INR | Routin | 02/13/2006 | | Results for this | | | e | 12:30 PM | | procedure are in the | | | | PDT | | results section. | + +--------+ + + + | CBC ONLY | Routin | 02/13/2006 | | Results for this | | | e | 12:30 PM | | procedure are in the | | | | PDT | | results section. | + +--------+ + + + | CT HEAD WO CONTRAST | Routin | 02/13/2006 | | Results for this | | | e | 9:22 AM | | procedure are in the | | | | PDT | | results section. | + +--------+ + + + documented in this encounter Results CT HEAD WWO CONTRAST (02/13/2006 3:30 PM PDT) + + + + + + | Component | Value | Ref Range | Performed | Pathologist | | | | | At | Signature | + + + + + + | CT HEAD WWO | Radiologist 1: Nab SON | | SALOMON | Nba LOMBARDI | | | | | Giselle-Radiologist 2: | | | | | | AMAR. Giselle FARLEYCT | | | | | | head with and without | | | | | | contrast HISTORY: | | | | | | Surgery planning | | | | | | TECHNIQUE: Axial 6 mm | | | | | | scans from the foramen | | | | | | magnum to vertexbefore | | | | | | and following | | | | | | intravenous contrast | | | | | | administration. | | | | | | COMPARISON:CT head | | | | | | 02/13/2006 FINDINGS: | | | | | | Inferior right frontal | | | | | | parenchymal hematoma, | | | | | | righttentorial subdural | | | | | | blood, and small | | | | | | subarachnoid blood in | | | | | | theinterhemispheric | | | | | | fissure are all | | | | | | unchanged. No new or | | | | | | increasinghemorrhage. | | | | | | No evidence of recent | | | | | | infarct. Ventricles | | | | | | remainnormal in size and | | | | | | shape. Basal cisterns | | | | | | are patent. | | | | | | Postcontrast images | | | | | | show no abnormal | | | | | | enhancement. IMPRESSION: | | | | | | 1. Unchanged inferior | | | | | | right frontal | | | | | | hemorrhagic contusion | | | | | | andextra axial | | | | | | hemorrhage.2. No | | | | | | abnormal enhancement. | | | | | | END OF IMPRESSION | | | | + + + + + + + + | Specimen | + + | | + + + +---------+ + + | Performing | Address | City/State/Zipcode | Phone Number | | Organization | | | | + +---------+ + + | [facility] DEPARTMENT OF | | | | | RADIOLOGY | | | | + +---------+ + + CT SINUS LANDMARX PROTOCOL WO (02/13/2006 3:30 PM PDT) + + + + + + | Component | Value | Ref Range | Performed | Pathologist | | | | | At | Signature | + + + + + + | CT SINUS | Radiologist 1: ADELAIDA | | | | | TOMASZ | MARIA C | | | | | PROTOCOL WO | M.D.-Radiologist 2: | | | | | | MARIA C SON | | | | | | M.D.EXAM: CT scan | | | | | | sinuses without contrast | | | | | | HISTORY: Preoperative | | | | | | planning. [place] | | | | | | sinus protocol. | | | | | | Recenttrauma. | | | | | | TECHNIQUE: 3 mm images | | | | | | in the coronal plane are | | | | | | obtained throughthe | | | | | | sinuses without | | | | | | contrast. COMPARISON: CT | | | | | | head 02/13/2006 | | | | | | FINDINGS:There has been | | | | | | prior bilateral | | | | | | antrostomy and | | | | | | internalethmoidectomy. | | | | | | Polypoid mucosal | | | | | | thickening involves all | | | | | | paranasalsinuses with | | | | | | air fluid levels in the | | | | | | maxillary sinuses. | | | | | | There jovanni bony defect | | | | | | in the inferior nasal | | | | | | septum with soft | | | | | | tissuethickening at this | | | | | | location. Orbital and | | | | | | infratemporal fossa | | | | | | fatis well preserved. No | | | | | | definite facial | | | | | | fracture is identified, | | | | | | although this study | | | | | | isnot optimized for | | | | | | trauma. As noted on CT | | | | | | head study | | | | | | isopacification of the | | | | | | right mastoid air cells | | | | | | and middle ear | | | | | | cavitywith likely | | | | | | fractures involving the | | | | | | lateral temporal bone. | | | | | | IMPRESSION:1. Changes | | | | | | related to prior FESS.2. | | | | | | Wisdom sinus disease | | | | | | with air fluid levels in | | | | | | the maxillarysinuses. | | | | | | It is unclear if these | | | | | | findings are partially | | | | | | related torecent | | | | | | trauma.3. Right | | | | | | temporal bone fractures | | | | | | not well evaluated. No | | | | | | definitefacial | | | | | | fractures identified. | | | | | | Thin slice | | | | | | maxillofacial CT would | | | | | | alsobe useful for | | | | | | evaluation of fractures | | | | | | if indicated. | | | | + + + + + + + + | Specimen | + + | | + + + +---------+ + + | Performing | Address | City/State/Zipcode | Phone Number | | Organization | | | | + +---------+ + + | [facility] DEPARTMENT OF | | | | | RADIOLOGY | | | | + +---------+ + + CBC ONLY WITH PLATELET (02/13/2006 12:30 PM PDT) + + + + + + | Component | Value | Ref Range | Performed | Pathologist | | | | | At | Signature | + + + + + + | WHITE CELL | 13.2 (H) | 4.4 - 11.0 K/cu | [facility] | | | COUNT | | mm | DEPARTMENT | | | | | | OF | | | | | | PATHOLOGY | | + + + + + + | RED CELL | 4.95 | 4.50 - 5.90 | [facility] | | | COUNT | | M/cu mm | DEPARTMENT | | | | | | OF | | | | | | PATHOLOGY | | + + + + + + | HEMOGLOBIN | 15.5 | 13.5 - 17.5 | [facility] | | | | | g/dL | DEPARTMENT | | | | | | OF | | | | | | PATHOLOGY | | + + + + + + | HEMATOCRIT | 43.8 | 41.0 - 53.0 % | [facility] | | | | | | DEPARTMENT | | | | | | OF | | | | | | PATHOLOGY | | + + + + + + | MCV | 88.4 | 80.0 - 96.0 fL | [facility] | | | | | | DEPARTMENT | | | | | | OF | | | | | | PATHOLOGY | | + + + + + + | MCHC | 35.5 | 33.4 - 35.5 | [facility] | | | | | g/dL | DEPARTMENT | | | | | | OF | | | | | | PATHOLOGY | | + + + + + + | RDW | 12.7 | 11.5 - 15.0 % | [facility] | | | | | | DEPARTMENT | | | | | | OF | | | | | | PATHOLOGY | | + + + + + + | PLATELET | 254 | 150 - 400 K/cu | [facility] [...] | + + + + + | [facility] DEPARTMENT OF | [facility] | [place] [address] | | | PATHOLOGY | [address] | | | + + + + + | [facility] DEPARTMENT OF | [address] | [place] [address] | | | PATHOLOGY | [address] | | | + + + + + PROTHROMBIN TIME (02/13/2006 12:30 PM PDT) + + + + + + | Component | Value | Ref Range | Performed | Pathologist | | | | | At | Signature | + + + + + + | INR | 0.98Comment: | 0.90 - 1.20 INR | [facility] [...] | + + + + + | [facility] DEPARTMENT OF | [address] | [place] [address] | | | PATHOLOGY | [address] | | | + + + + + | [facility] OF | [address] | [place] [address] | | | PATHOLOGY | [address] | | | + + + + + CT HEAD WO CONTRAST (02/13/2006 9:22 AM PDT) + + + + + + | Component | Value | Ref Range | Performed | Pathologist | | | | | At | Signature | + + + + + + | CT HEAD WO | Radiologist 1: ADELAIDA, | | | | | CONTRAST | MARIA C | | | | | | M.DAddi-Radiologist 2: | | | | | | MARIA C SON, | | | | | | M.D.NONCONTRAST HEAD CT | | | | | | HISTORY: Trauma | | | | | | TECHNIQUE: Axial | | | | | | noncontrast 6 mm scans | | | | | | from the foramen magnum | | | | | | tovertex. | | | | | | COMPARISON:None | | | | | | FINDINGS: There is an | | | | | | inferior right frontal | | | | | | hemorrhagic | | | | | | contusionmeasuring | | | | | | approximately 38 x 8 mm | | | | | | in A.P. and | | | | | | transversedimensions, | | | | | | with a rim vasogenic | | | | | | edema. No other | | | | | | definiteparenchymal | | | | | | hemorrhage. There is a | | | | | | small amount of | | | | | | subduralhemorrhage | | | | | | layering along the right | | | | | | tentorium as well as | | | | | | smallamount of | | | | | | subarachnoid hemorrhage | | | | | | in the interhemispheric | | | | | | fissure.There is mild | | | | | | sulcal effacement and | | | | | | the right frontal | | | | | | vertex.Ventricles are | | | | | | normal in size and shape | | | | | | with no midline | | | | | | shift.Basal cisterns are | | | | | | patent. There is | | | | | | bilateral maxillary | | | | | | fluid, suggestive of | | | | | | fracture,although facial | | | | | | bones are not | | | | | | adequately evaluated on | | | | | | this study.There is | | | | | | fluid opacification of | | | | | | the right mastoid air | | | | | | cells andmiddle ear | | | | | | cavity. There is also | | | | | | small focus of gas | | | | | | within thevestibule. | | | | | | These findings suggest | | | | | | an underlying right | | | | | | temporalbone fracture. | | | | | | IMPRESSION: 1. | | | | | | Inferior right frontal | | | | | | hemorrhagic | | | | | | contusion.2. Small | | | | | | amount of right | | | | | | tentorial subdural | | | | | | hemorrhage | | | | | | andsubarachnoid | | | | | | hemorrhage in the | | | | | | interhemispheric | | | | | | fissure.3. Maxillary | | | | | | sinus fluid, suggestive | | | | | | of the facial | | | | | | fracture.4. Right | | | | | | mastoid and middle ear | | | | | | fluid and air suggested | | | | | | within thebony labyrinth | | | | | | are likely related to | | | | | | an underlying temporal | | | | | | bonefracture. | | | | | | Dedicated imaging of | | | | | | these areas would be | | | | | | useful if notalready | | | | | | done. END OF IMPRESSION | | | | + + + + + + + + | Specimen | + + | | + + + +---------+ + + | Performing | Address | City/State/Zipcode | Phone Number | | Organization | | | | + +---------+ + + | [facility] DEPARTMENT OF | | | | | RADIOLOGY | | | | + +---------+ + + documented in this encounter Visit Diagnoses Not on filedocumented in this encounter"
--- OUTSIDE RECORDS SUMMARY | ~2019-10-18 | XMS | Encounter Summary ---
Demographics + + + | Address | [address] | | | [place] [address] | + + + | Home Phone [...] [place] | | | | | [address] | | + + + + + Care Team Providers + +------+ + | Care Press Operator [place]ocks Name | Role | Phone | + +------+ + | Hemalatha Lawrence PA-C | PCP | | + +------+ + Encounter Details +--------+ + + + + | Date | Type | Department | Care Team | Description | +--------+ + + + + | 03/23/ | Inside | BERNABE MATHEW at [facility] | Arvin Altamirano, | | | 2018 | Referral | [facility] [address] | MD [address] | | | | Order | [address] Mailcode: | [place], [place] | | | | | [address] [place] [address] | [address] | | | | | Health and Healing, | [phone] | | | | | Building [address] | | | | | | [place], [place] | | | | | | [address] | | | | | | [phone] | | | +--------+ + + + [...] 12/15/ | Office | Pre-operative | 2, [facility] [address] | | | 2020 | Visit | Medicine | [address] | | | | | | [place] [address] | | +--------+ + + + + | 01/04/ | Procedure | Surgery | | | | 2019 | Pass | | | | +--------+ + + + + | 01/25/ | Office | Otolaryngology | Santos Valdivia, | | | 2019 | Visit | | [address] [facility] | | | | | | [address] | | | | | | [place], [place] | | | | | | [address] | | | | | | [phone] | | | | | | | | +--------+ + + + + +------+ +--------+ + + | Name | Type | Priori | Associated Diagnoses | Order Schedule | | | | ty | | | +------+ +--------+ + + | EGD | Procedures | Routin | Dysphagia, | Expected: 03/23/2018 | | | | e | unspecified type | | | | | | S/P gastric bypass | | +------+ +--------+ + + documented as of this encounter Visit Diagnoses + + | Diagnosis | + + | Dysphagia, unspecified type - Primary | + + | S/P gastric bypass Bariatric surgery status | + + documented in this encounter"
--- OUTSIDE RECORDS SUMMARY | ~2019-10-18 | XMS | Encounter Summary ---
Demographics + + + | Address | [address] | | | [place] [address] | + + + | Home Phone | | + + + | Preferred Language | Unknown | + + + | Marital Status | | + + + | Temple Affiliation | NRP | + + + [...] [place] | | | | | [address] | | + + + + + Care Team Providers + +------+ + | Care Timekeeper Name | Role | Phone | + +------+ + | Hemalatha Lawrence PA-C | PCP | | + +------+ + Reason for Visit + + + | Reason | Comments | + + + | Telephone follow-up | 05/04/18 | + + + Encounter Details +--------+ + + + + | Date | Type | Department | Care Team | Description | +--------+ + + + + | 05/05/ | Telephone | Endoscopic | Bob Qunin | Telephone follow-up | | 2018 | | Procedural Unit at | [place], [address] | (05/04/18) | | | | [address] | [facility] | | | | | [address] | [place], [place] | | | | | Mailcode: [id number] | [address] | | | | | [facility] | [phone] | | | | | [address] [facility] [place] | | | | | | [address] | | | | | | [phone] | | | +--------+ + + + [...] 2, [facility] [address] | | | 2019 | Visit | Medicine | [address] | | | | | | [place] [address] | | +--------+ + + + + | 01/04/ | Procedure | Surgery | | | | 2019 | Pass | | | | +--------+ + + + + | 01/25/ | Office | Otolaryngology | Santos Valdivia, | | | 2019 | Visit | | [address] | | | | | | [address] | | | | | | [place], [place] | | | | | | [address] | | | | | | [phone] | | | | | | | | +--------+ + + + + documented as of this encounter Visit Diagnoses Not on filedocumented in this encounter"
--- OUTSIDE RECORDS SUMMARY | ~2019-10-18 | XMS | Encounter Summary ---
Demographics + + + | Address | [address] | | | [place] [address] | + + + | Home Phone | | + + + | Preferred Language | Unknown | + + + | Marital Status | | + + + | Samaritan Affiliation | NRP | + + + [...] [place] | | | | | [address] | | + + + + + Care Team Providers + +------+ + | Care Sap Basis Architect Name | Role | Phone | + +------+ + | Hemalatha Lawrence PA-C | PCP | | + +------+ + Encounter Details +--------+ + + + + | Date | Type | Department | Care Team | Description | +--------+ + + + + | 01/17/ | Pharmacy | Outpatient Retail | | | | 2017 | Visit | [facility] | | | | | | [address] | | | | | | [place], [place] | | | | | | [address] | | | | | | [phone] | | | +--------+ + + + [...] | Office | Pre-operative | 2 [facility] [address] | | | 2019 | Visit | Medicine | [address] | | | | | | [place] [address] | | +--------+ + + + + [...] [place] | | | | | | [address] | | | | | | [phone] | | | | | | | | +--------+ + + + + documented as of this encounter Visit Diagnoses Not on filedocumented in this encounter"
--- OUTSIDE RECORDS SUMMARY | ~2019-10-18 | XMS | Encounter Summary ---
Demographics + + + | Address | [address] | | | [place] [address] | + + + | Home Phone | | + + + | Preferred Language | Unknown | + + + | Marital Status | | + + + | Catholic Affiliation | NRP | + + + [...] [place] | | | | | [address] | | + + + + + Care Team Providers + +------+ + | Care Critical Care Rn Name | Role | Phone | + +------+ + | Hemalatha Lawrence PA-C | PCP | | + +------+ + Reason for Visit + + + | Reason | Comments | + + + | Medical Records | | | Review | | + + + Encounter Details +--------+ + + + + | Date | Type | Department | Care Team | Description | +--------+ + + + + | 03/22/ | Documentati | Endoscopic | Lab, Gi Procedure | Medical Records | | 2018 | on | Procedural Unit at | | Review | | | | [address] | | | | | | [address] | | | | | | Mailcode: UHN83 | | | | | | [address] | | | | | | [address] [place], [place] | | | | | | [address] | | | | | | [phone] | | | +--------+ + + + [...] 12/15/ | Office | Pre-operative | 2 [facility] [address] | | | 2019 | Visit | Medicine | [address] | | | | | | [place] [address] | | +--------+ + + + + | 01/04/ | Procedure | Surgery | | | | 2019 | Pass | | | | +--------+ + + + + | 01/25/ | Office | Otolaryngology | Santos Valdivia, | | | 2019 | Visit | | [address] | | | | | | [address] | | | | | | [place], [place] | | | | | | [address] | | | | | | [phone] | | | | | | | | +--------+ + + + + documented as of this encounter Visit Diagnoses Not on filedocumented in this encounter"
--- OUTSIDE RECORDS SUMMARY | ~2019-10-18 | XMS | Encounter Summary ---
Demographics + + + | Address | [address] | | | [place] [address] | + + + | Home Phone [...] [place] | | | | | [address] | | + + + + + Care Team Providers + +------+ + | Care Fertilizer Loader Name | Role | Phone | + [...] Closed | | Gastroenterol | Diagnoses | Enestvedt, | Gas Endo | | | | ogy | Anastomotic | Bob Schulte, | [facility] [address] | | | | | stricture | MD [address] | | | | | of | [address] | Mailcode: | | | | | gastrojejuno | [address] | [facility] | | | | | stomy | [place], [place] | for Health | | | | | Procedures | [address] | and Healing, | | | | | CONSULT TO | Phone: | Building 2 | | | | | GI PROCEDURE | [phone] | [place], [place] | | | | | UNIT: EGD | Fax: | [address] | | | | | [place] [facility]PPER [facility] | [phone] | Phone: | | | | | ENDOSCOPY,BI | | [phone] | | | | | OPSY [place] UP | | Fax: | | | | | GI | | [phone] | | | | | ENDOSCOPY,BA | | | | | | | LL DIL,30MM | | | +--------+--------+ + + + + Encounter Details +--------+ + + + + | Date | Type | Department | Care Team | Description | +--------+ + + + + | 05/04/ | Sports Marketing Specialist | Digestive Health | Bob Quinn | Anastomotic | | 2018 | | Center at [facility] [address] | MD [place] [address] | stricture of | | | | [address] | [address] | gastrojejunostomy | | | | Mailcode: [place] | [place], [place] | (Primary Dx) | | | | for Health and | [address] | | | | | [facility] 2 | [phone] | | | | | [facility] [place] | | | | | | [address] | | | | | | [phone] | | | +--------+ + + + [...] | 12/15/ | Office | Pre-operative | [facility] [address] | | | 2019 | Visit | Medicine | [address] | | | | | | [place] [address] | | +--------+ + + + + [...] Rd | | | | | | [place], [place] | | | | | | [address] | | | | | | [phone] | | | | | | | | +--------+ + + + + documented as of this encounter Visit Diagnoses + + | Diagnosis | + + | Anastomotic stricture of gastrojejunostomy - Primary | + + documented in this encounter"
--- OUTSIDE RECORDS SUMMARY | ~2019-10-18 | XMS | Encounter Summary ---
Demographics + + + | Address | [address] | | | [place] [address] | + + + | Home Phone [...] [place] | | | | | [address] | | + + + + + Care Team Providers + +------+ + | Care Whipper Beater Name | Role | Phone | + [...] | 2019 | Encounter | Center at [facility] [address] | | appointment | | | | [address] | | | | | | Mailcode: Center | | | | | | for Health and | | | | | | Healing, Building [address] | | | | | | [place], [place] | | | | | | [address] | | | | | | [phone] | | | +--------+ + + + [...] Rd | | | | | | [place] [address] | | +--------+ + + + + [...] [place] | | | | | | [address] | | | | | | [phone] | | | | | | | | +--------+ + + + + documented as of this encounter Visit Diagnoses Not on filedocumented in this encounter"
--- OUTSIDE RECORDS SUMMARY | ~2019-10-18 | XMS | Encounter Summary ---
Demographics + + + | Address | [address] | | | [place] [address] | + + + | Home Phone [...] [place] | | | | | [address] | | + + + + + Care Team Providers + +------+ + | Care Linoleum Layer Helper Name | Role | Phone | + +------+ + | Hemalatha Lawrence PA-C | PCP | | + +------+ + Encounter Details +--------+ + + + + | Date | Type | Department | Care Team | Description | +--------+ + + + + | 02/07/ | MyChart | Digestive Health | Kaylee Purcell, | Feeling sick | | 2018 | Encounter | Center at [facility] [address] | AGACNP [address] | | | | | [address] | [place], [place] | | | | | Mailcode: Center | [address] | | | | | for Health and | | | | | | [facility] 2 | | | | | | [place], [place] | | | | | | [address] | | | | | | | [...] 12/15/ | Office | Pre-operative | 2, [facility] [address] | | | 2020 | Visit | Medicine | [address] | | | | | | [place] [address] | | +--------+ + + + + [...] Rd | | | | | | [place] | | | | | | [address] | | | | | | [phone] | | | | | | | | +--------+ + + + + documented as of this encounter Visit Diagnoses Not on filedocumented in this encounter"
--- OUTSIDE RECORDS SUMMARY | ~2019-10-18 | XMS | Encounter Summary ---
Demographics + + + | Address | [address] | | | [place] [address] | + + + | Home Phone [...] [place] | | | | | [address] | | + + + + + Care Team Providers + +------+ + | Care Shorts Sifter Name | Role | Phone | + [...] | | | Ave Mailcode: [address] | [place], [place] | | | | | [facility] | [address] | | | | | and Healing, | | | | | | [place] [address], [facility] | | | | | | Floor [facility] [place] | | | | | | [address] | | | | | | [phone] | | | +--------+ + + + [...] Office | Pre-operative | [facility] [address] | | | 2019 | Visit | Medicine | [address] | | | | | | [place] [address] | | +--------+ + + + + | 01/04/ | Procedure | Surgery | | | | 2019 | Pass | | | | +--------+ + + + + | 01/25/ | Office | Otolaryngology | Santos Valdivia, | | | 2019 | Visit | | [address] | | | | | | [address] | | | | | | [place], [place] | | | | | | [address] | | | | | | [phone] | | | | | | | | +--------+ + + + + documented as of this encounter Visit Diagnoses Not on filedocumented in this encounter"
--- OUTSIDE RECORDS SUMMARY | ~2019-10-18 | XMS | Encounter Summary ---
Demographics + + + | Address | [address] | | | [place] [address] | + + + | Home Phone | | + + + | Preferred Language | Unknown | + + + | Marital Status | | + + + | Orthodoxy Affiliation | NRP | + + + | Race | White | + + + | Ethnic Group | Not or | + + + Author + + + | Author | [facility] | + + + | Organization | [facility] | + + + | Address | Unknown | + + + | Phone | Unavailable | + + + Support + + + + + | Name | Relationship | Address | Phone | + + + + + | Pooja Valdez | ECON | [address] | | | | | [place] | | | | | [address] | | + + + + + Care Team Providers + +------+ + | Care Supervisor Pipe Manufacture Name | Role | Phone | + +------+ + | Hemalatha Lawrence PA-C | PCP | | + +------+ + Reason for Visit + + + | Reason | Comments | + + + | Appointment | bariatric followup | + + + Encounter Details +--------+ + + + + | Date | Type | Department | Care Team | Description | +--------+ + + + + | 07/28/ | Telephone | Digestive Health | Clinic, Surgery | Appointment | | 2018 | | Center at [facility] [address] | | (bariatric followup | | | | [address] | | ) | | | | Mailcode: [place] | | | | | | [facility] and | | | | | | [facility], [facility] | | | | | | [place], [place] | | | | | | [address] | | | | | | [phone] | | | +--------+ + + + [...] Office | Pre-operative | [facility] [address] | | | 2019 | Visit | Medicine | [address] | | | | | | [place] [address] | | +--------+ + + + + [...] Rd | | | | | | [place] | | | | | | [address] | | | | | | [phone] | | | | | | | | +--------+ + + + + documented as of this encounter Visit Diagnoses Not on filedocumented in this encounter"
--- OUTSIDE RECORDS SUMMARY | ~2019-10-18 | XMS | Encounter Summary ---
Demographics + + + | Address | [address] | | | [place] [address] | + + + | Home Phone [...] [place] | | | | | [address] | | + + + + + Care Team Providers + +------+ + | Care Gravity Manager Name | Role | Phone | [...] Pharmacy | | | | | | [address] | | | | | | [place], [place] | | | | | | [address] | | | | | | [phone] | | | +--------+ + + + [...] | Office | Pre-operative | 2, [facility] [address] | | | 2019 | Visit | Medicine | [address] | | | | | | [place] [address] | | +--------+ + + + + [...] [place] | | | | | | [address] | | | | | | [phone] | | | | | | | | +--------+ + + + + documented as of this encounter Visit Diagnoses Not on filedocumented in this encounter"
--- OUTSIDE RECORDS SUMMARY | ~2019-10-18 | XMS | Encounter Summary ---
Demographics + + + | Address | [address] | | | [place] [address] | + + + | Home Phone | | + + + | Preferred Language | Unknown | + + + | Marital Status | | + + + | Congregation Affiliation | NRP | + + + | Race | White | + + + | Ethnic Group | Not or | + + + Author + + + | Author | [facility] | + + + | Organization | [facility] | + + + | Address | Unknown | + + + | Phone | Unavailable | + + + Support + + + + + | Name | Relationship | Address | Phone | + + + + + | Pooja Valdez | ECON | [address] | | | | | [place] | | | | | [address] | | + + + + + Care Team Providers + +------+ + | Care Fleet Administrative Assistant Name | Role | Phone | + +------+ + | Hemalatha Lawrence PA-C | PCP | | + +------+ + Reason for Visit + + + | Reason | Comments | + + + | Appointment | bariatric follow up | + + + Encounter Details +--------+ + + + + | Date | Type | Department | Care Team | Description | +--------+ + + + + | 01/30/ | Telephone | Digestive Health | Clinic, Surgery | Appointment | | 2019 | | Center at [facility] [address] | | (bariatric follow | | | | [address] | | up) | | | | Mailcode: Center | | | | | | [facility] and | | | | | | [place] [address] | | | | | | [place], [place] | | | | | | [address] | | | | | | [phone] | | | +--------+ + + + [...] 12/15/ | Office | Pre-operative | 2 [facility] [address] | | | 2019 | Visit | Medicine | [address] | | | | | | [place] [address] | | +--------+ + + + + | 01/04/ | Procedure | Surgery | | | | 2019 | Pass | | | | +--------+ + + + + | 01/25/ | Office | Otolaryngology | Santos Valdivia, | | | 2019 | Visit | | [address] | | | | | | [address] | | | | | | [place], [place] | | | | | | [address] | | | | | | [phone] | | | | | | | | +--------+ + + + + documented as of this encounter Visit Diagnoses Not on filedocumented in this encounter"
--- OUTSIDE RECORDS SUMMARY | ~2019-10-18 | XMS | Encounter Summary ---
Demographics + + + | Address | [address] | | | [place] [address] | + + + | Home Phone | | + + + | Preferred Language | Unknown | + + + | Marital Status | | + + + | Presybeterian Affiliation | NRP | + + + | Race | White | + + + | Ethnic Group | Not or | + + + Author + + + | Author | [facility] | + + + | Organization | [facility] | + + + | Address | Unknown | + + + | Phone | Unavailable | + + + Support + + + + + | Name | Relationship | Address | Phone | + + + + + | Pooja Valdez | ECON | [address] | | | | | [place] | | | | | [address] | | + + + + + Care Team Providers + +------+ + | Care Director Of Capital Giving Name | Role | Phone | + +------+ + | Hemalatha Lawrence PA-C | PCP | | + +------+ + Encounter Details +--------+ + + + + | Date | Type | Department | Care Team | Description | +--------+ + + + + | 03/28/ | MyChart | Digestive Health | Arvin Altamirano, | RE: RE: RE: RE: RE: | | 2017 | Encounter | Center [address] | MD [address] | pain | | | | Ave Mailcode: [address] | [place], [place] | | | | | [facility] | [address] | | | | | and Kailyn, | | | | | | [place] [address], [facility] | | | | | | Floor [place], [place] | | | | | | [address] | | | | | | [phone] | | | +--------+ + + + [...] | Pre-operative | 2, [address] | | | 2019 | Visit | Medicine | [address] | | | | | | [place] [address] | | +--------+ + + + + | 01/04/ | Procedure | Surgery | | | | 2019 | Pass | | | | +--------+ + + + + | 01/25/ | Office | Otolaryngology | Santos Valdivia, | | | 2019 | Visit | | [address] | | | | | | [address] | | | | | | [place] | | | | | | [address] | | | | | | [phone] | | | | | | | | +--------+ + + + + documented as of this encounter Visit Diagnoses Not on filedocumented in this encounter"
--- OUTSIDE RECORDS SUMMARY | ~2019-10-18 | XMS | Encounter Summary ---
Demographics + + + | Address | [address] | | | [place] [address] | + + + | Home Phone [...] [place] | | | | | [address] | | + + + + + Care Team Providers + +------+ + | Care Independent Consultant Name | Role | Phone | + +------+ + | Hemalatha Lawrence PA-C | PCP | | + +------+ + Reason for Visit + + + | Reason | Comments | + + + | Returning Phone Call | | + + + Encounter Details +--------+ + + + + | Date | Type | Department | Care Team | Description | +--------+ + + + + | 02/03/ | Telephone | Digestive Health | Clinic, Surgery | Returning Phone Call | | 2018 | | Center at [facility] [address] | | | | | | [address] | | | | | | Mailcode: [facility] | | | | | | for Health and | | | | | | [facility] 2 | | | | | | [place], [place] | | | | | | [address] | | | | | | [phone] | | | +--------+ + + + [...] 12/15/ | Office | Pre-operative | 2 [facility] [address] | | | 2019 | Visit | Medicine | [address] | | | | | | [place] [address] | | +--------+ + + + + | 01/04/ | Procedure | Surgery | | | | 2019 | Pass | | | | +--------+ + + + + | 01/25/ | Office | Otolaryngology | Santos Valdivia, | | | 2019 | Visit | | [address] | | | | | | [address] | | | | | | [place], [place] | | | | | | [address] | | | | | | [phone] | | | | | | | | +--------+ + + + + documented as of this encounter Visit Diagnoses Not on filedocumented in this encounter"
--- OUTSIDE RECORDS SUMMARY | ~2019-10-18 | XMS | Encounter Summary ---
Demographics + + + | Address | [address] | | | [place] [address] | + + + | Home Phone [...] [place] | | | | | [address] | | + + + + + Care Team Providers + +------+ + | Care [place] Name | Role | Phone | + [...] | +--------+ + + + + | 08/12/ | Abstract | Digestive Health | Clinic, Surgery | Medical Records | | 2017 | | Center [address] | | Review | | | | Sophie Mailcode: [facility] | | | | | | [facility] | | | | | | and Healing, | | | | | | Building [address] | | | | | | Floor [place], [place] | | | | | | [address] | | | | | | [phone] | | | +--------+ + + + [...] 2, [facility] [address] | | | 2019 | Visit | Medicine | [address] | | | | | | [place] [address] | | +--------+ + + + + [...] Rd | | | | | | [place], [place] | | | | | | [address] | | | | | | [phone] | | | | | | | | +--------+ + + + + documented as of this encounter Visit Diagnoses Not on filedocumented in this encounter"
--- OUTSIDE RECORDS SUMMARY | ~2019-10-18 | XMS | Clinical Summary ---
Demographics + + + | Address | [address] | | | [place] [address] | + + + | Home Phone [...] [place] | | | | | [address] | | + + + + + Care Team Providers + +------+ + | Care Healthcare Risk Control Consultant Name | Role | Phone | + +------+ + | Hemalatha Lawrence PA-C | PCP | | + +------+ + Source Comments BERNABE is fully live on both [facility] and [facility] InPatient.[facility] [place] Allergies + + + + + + [...] 0 | | | Activ | | [id number] | mouth once daily. | | | [...] 12/15/ | Office | Pre-operative | 2, [facility] [place] [address] | | | 2019 | Visit | Medicine | [address] | | | | | | [place] [address] | | +--------+ + + + + | 01/04/ | Procedure | Surgery | | | | 2019 | Pass | | | | +--------+ + + + + | 01/25/ | Office | Otolaryngology | Santos Valdivia, | | | 2019 | Visit | | [address] [facility] | | | | | | [address] | | | | | | [place], [place] | | | | | | [address] | | | | | | [phone] | | | | | | | [...] - | | | | | | /[id number] | | [id number]: Qty: 2 on | | | | | | 575 | | 01/17/2018 by Arvin Altamirano | | | | | | | | MD Luis Felipe at [facility] RE[facility] | | | | | | | | LOC | | | | | | | + +------+-------+ +--------+--------+--------+ | Reinforcement Staple Line | | N/A: | [facility] | | 03/07/ | [id number] | | Bioabsorbable Sterile | | Ankle | [employer] | | 2019 | 5 / | | Seamguard Latex Free | | | | | | /[id number] | | Disposable Dst Series Ceea 25 | | | | | | 750 | | - [id number]: Qty: 1 | | | | | | | | on 01/17/2018 by Evelia, | | | | | | | | Arvin Briscoe MD at [facility] | | | | | | | | REV LOC | | | | | | | + +------+-------+ +--------+--------+--------+ Procedures + +--------+ + + + | Procedure Name | Priori | Date/Time | Associated Diagnosis | Comments | | | ty | | | | + +--------+ + + + | DE EAR MICROSCOPY | Routin | 08/20/2019 | [...] | + +--------+ +--------+ + +------+ | [facility] | PROVID | [phone] | | [phone] | [address] | P[address] | | | [address]CE | | [phone] | | | | CHOICE | | esent | | [place], | | | | [place] | | | | [place] [address] | | + +--------+ +--------+ + +------+ [...] | 1970 | [phone] | [place] [address] | | | [place] | | | [address] (Home) | | [...]
--- OUTSIDE RECORDS SUMMARY | ~2019-10-18 | XMS | Encounter Summary ---
Demographics + + + | Address | [address] | | | [place] [address] | + + + | Home Phone | | + + + | Preferred Language | Unknown | + + + | Marital Status | | + + + | Alevism Affiliation | NRP | + + + [...] [place] | | | | | [address] | | + + + + + Care Team Providers + +------+ + | Care Enterprise Applications Manager Name | Role | Phone | [...] | [facility] | | | with INNER DIAMETER GR[employer]ER [facility]OL | | | | [facility] [address] | | | | | | | [address] | | | | | | | Mailcode: | | | | | | | [facility] | | | | | | [facility] and | | | | | | | Healing, | | | | | | | [address] | | | | | | | [place], [place] | | | | | | | [address] | | | | | | | Phone: | | | | | | | [phone] | | | | | | | Fax: | | | | | | | [phone] | +--------+ + + + + + Encounter Details +--------+---------+ + + + | Date | Type | Department | Care Team | Description | +--------+---------+ + + + | 08/31/ | Office | Digestive Health | Mary Gonsalez, | S/P gastric bypass | | 2018 | Visit | [facility] [address] | ACNP [address] | (Primary Dx); | | | | [address] | [place], [place] | Essential | | | | Mailcode: Center | [address] | hypertension; | | | | for Health and | [phone] | Impaired intestinal | | | | Healing, [address] | | absorption | | | | [place], [place] | | | | | | [address] | | | | | | [phone] | | | +--------+---------+ + + + [...] + + + | Blood Pressure | 124/86 | 08/31/2018 3:35 PM | | | | | PDT | | + + + + + | Pulse | 85 | 08/31/2018 3:35 PM | | | [...] + + + + | Weight | 105.3 kg (232 lb 1.6 | 08/31/2018 3:35 PM | | | | oz) | PDT | | + + + + + | Height | 188 cm (6' 2") | 08/31/2018 3:35 PM | | | | | PDT | | + + + + + | Body Mass Index | 29.8 | 08/31/2018 3:35 PM | | | [...] of this encounter Patient Instructions Patient Instructions Mary Gonsalez ACNP - 08/31/2018 3:35 PM PDT Assessment/Plan: 1. S/P Sanford en y gastric bypass, Doing well at 6 months +CBC, CMP, B12, PTH, vit D, ferritin, B1, TBIC & iron- will notify of results +Continue with supplements as directed, watch protein levels, be sure to get 60 gms daily, be sure to take in 64 oz of water daily. Discussed specific supplements +Discussed calorie counting and protein counting: No +Discussed diet choices, healthy foods, ways to increase protein and iron, offered RD visit :Unable to get scheduled. +Discussed exercise, types of exercise: walking, tracking steps- averaging 7,000-8,000/day + patient is willing to comply with the post-operative treatment plan 2. Altered Intestinal absorption, s/p gastric surgery, potential for B12 deficiency, Calciu m malabsorption, protein malabsorption and iron deficiencies. Offered lab at 6 mos and yearl y visits. 3. B12 nutritional deficiency- pt has limited portion sizes, area of stomach where b12 abso rbed is now partially removed or bypassed. Offered lab at 6 mos and yearly visits. 4. Vitamin D deficiency, pt has history of deficiency, taking supplements, will need to be monitored regularly. Potential for elevated PTH if Vit D and calcium absorption are not opti mized. Offered lab at 6 mos and yearly visits. 5. JOSE: resolved 6. GERD: rare 7. Hyperlipidemia: No taking statin 8. HTN: taking toprol 9. Diabetes: resolved See PCM for adjusting any other medications. Call if any abd pain, n/v/d or other issues. E R for severe pain. Encouraged pt to F/u at one year post. Pt agrees to POC and will call or send [employer] if any issues. documented in this encounter Progress Notes Mary Gonsalez ACNP - 08/31/2018 3:35 PM PDTFormatting of this note might be different fr om the original. BARIATRIC FOLLOW-UP Mynor Valdez is a 48 y.o. patient who underwent a Sanford en y gastric bypass 01/17/18. Post op he had nausea, vomiting and reflux. He had several EGD's (04/21/18 & 05/25/18) due to GJ s tenosis which has resolved. His last clinic visit was 05/13/18. He is making good food choices , but has noticed that he doesn't tolerate certain foods which makes him nauseated. He is b eing more active- walking and tracking his steps at work. He has been taking all supplements , 60 gms protein daily, and 64 oz water daily. He is happy with his weight loss. He denies y east infections under his skin folds. He stopped taking metformin, lisinopril, ursodiol, jay rvastatin, omeprazole, and his CPAP. His told him that he no longer snores. He has not seen his PCP in "awhile". Last office visit reviewed. Op-report reviewed. Labs reviewed. Weight 313--> 232 (total 81 lb weight loss) BP 124/86 | Pulse 85 | Temp (Src) 36.7 C (98.1 F) (Oral) | RR 18 | Ht 1.88 m (6' 2") | Wt 105.3 kg (232 lb 1.6 oz) | BMI 29.8 kg/(m^2) ALLERGIES: Allergies Allergen Reactions Actos [Pioglitazone Hcl] Headache Cephalexin Hcl Unknown Metformin Diarrhea Current Outpatient Prescriptions: buPROPion 75 mg oral tablet, Take 2 tablets by mouth two times daily., Disp: 120 tablet, Rfl: 0 Cholecalciferol (Vitamin D3) 2,000 unit oral tablet, Take 1 tablet by mouth once daily. Ind ications: Vitamin D Deficiency, Disp: 90 tablet, Rfl: 3 Cyanocobalamin-Cobamamide (B-12 PLUS) 5,000-100 mcg sublingual tablet, [...] s via mouth., Disp: , Rfl: iron gly,oia-[id number]-asoanxeg 150 mg iron-200 mg-250 mcg oral tablet, Take 5,000 mcg by mo uth once daily., Disp: , Rfl: LEVOMEFOLATE CALCIUM (L-METHYLFOLATE ORAL), Take 15 mcg by mouth once daily., Disp: , Rfl: levothyroxine 200 mcg oral tablet, Take 200 mcg by mouth once daily. 6 days a week per pt., Disp: , Rfl: metoprolol tartrate 100 mg oral tablet, Take 1 tablet by mouth two times daily., Disp: 60 t ablet, Rfl: 0 History: Past Medical History: Diagnosis Date Anxiety Depression GERD (gastroesophageal reflux disease) HBP (high blood pressure) Headache High cholesterol Migraine Numbness and tingling JOSE Thyroid activity decreased Type 2 diabetes mellitus (HCC) Past Surgical History Procedure Laterality Date Ankle fracture surgery 2000 Hand surgery Left 2006 Sinus surgery 2005 Sinus surgery 2012 Lap gastric byp, and sanford-en-y gastroenterostomy w/ sanford limb 150 cm or less 8 [address] 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 HR 73. NONSPECIFIC INTRAVENTRICULAR CONDUCTION DELAY. LEFT V ENTRICULAR HYPERTROPHY- ABNORMAL ECG (I personally reviewed tracing) Records reviewed from Care Everywhere and summarized below: [place] Myocardial Perfusion Study with Exercise ([facility]) 12/15/2010 - ME STORY: Chest pain.Abnormal EKG. FINDINGS: No prior cardiac SPECT studies for comparison. The estimated left ventricular ejection fraction is 52%.There is mildly heterogeneous u ptake throughout the left ventricular myocardium.No significant fixed or reversible defe cts can be identified.There are mildly reduced counts within the cardiac apex, probably related to normal variant apical thinning. IMPRESSION: 1.No evidence of ischemia at the level of stress achieved. 2.Estimated LVEF is 52%. Family History Problem Relation Diabetes Mother Thyroid Mother Obesity Mother Breast Cancer Mother Stroke Mother age mid 70's Parkinson's Disease Father Cancer Father High blood pressure Father Obesity Sister Diabetes Sister Diabetes Brother High blood pressure Brother Obesity Brother Cancer Sister Fibromyalgia Sister High blood pressure Sister Obesity Brother Bariatric Medications: MVI with iron twice daily: yes Calcium citrate 1500mg daily: yes B12 500mcg SL daily or monthly shot: yes H2RB/PPI daily: no Actigall 300 BID: no Narcotics: no Symptoms: Nausea: Only w/ certain foods Dysphagia: <1 time per week, rare if eats too fast Vomiting: None Heartburn: None Abd Pain: None Constipation: None Diarrhea: None Exam General- Alert and oriented x4, WD, WN, NAD, Obese, well appearing Well hydrated: moist mucous membranes Assessment/Plan: 1. S/P Sanford en y gastric bypass, Doing well at 6 months post op +CBC, CMP, B12, PTH, vit D, ferritin, B1, TBIC & iron- will notify of results +Continue with supplements as directed, watch protein levels, be sure to get 60 gms daily, be sure to take in 64 oz of water daily. Discussed specific supplements +Discussed calorie counting and protein counting: No +Discussed diet choices, healthy foods, ways to increase protein and iron, offered RD visit :Unable to get scheduled. +Discussed exercise, types of exercise: walking, tracking steps- averaging 7,000-8,000/day + patient is willing to comply with the post-operative treatment plan 2. Altered Intestinal absorption, s/p gastric surgery, potential for B12 deficiency, Calciu m malabsorption, protein malabsorption and iron deficiencies. Offered lab at 6 mos and yearl y visits. 3. B12 nutritional deficiency- pt has limited portion sizes, area of stomach where b12 abso rbed is now partially removed or bypassed. Offered lab at 6 mos and yearly visits. 4. Vitamin D deficiency, pt has history of deficiency, taking supplements, will need to be monitored regularly. Potential for elevated PTH if Vit D and calcium absorption are not opti mized. Offered lab at 6 mos and yearly visits. 5. JOSE: resolved 6. GERD: rare 7. Hyperlipidemia: No taking statin 8. HTN: taking toprol 9. Diabetes: resolved 10. Make an appointment with PCP after your laboratory studies are completed. See PCM for adjusting any other medications. Call if any abd pain, n/v/d or other issues. E R for severe pain. Encouraged pt to F/u at one year post. Pt agrees to POC and will call or send [employer] if any issues. Start time 15:35, end time 16:00. I spent a total of 25 minutes face to face with this pat ient. Over 50% of visit was in counseling. ~ 10 minutes of additional time spent reviewing chart prior to visit and documenting after this visit. Mary SANCHEZ APRON OPERATOR Bariatric Surgery Nurse Practitioner [facility] | [address] | [place], [place] | [address] | documented in this e ncounter Plan of Treatment +--------+ + + + + | Date | Type | Specialty | Care Team | Description | +--------+ + + + + | 12/15/ | Office | Pre-operative | 2, Andrés Chambers [address] | | | 2019 | Visit | Medicine | [address] | | | | | | [place] [address] | | +--------+ + + + + | 01/04/ | Procedure | Surgery | | | | 2019 | Pass | | | | +--------+ + + + + | 01/25/ | Office | Otolaryngology | Santos Valdivia, | | | 2019 | Visit | | [address] | | | | | | [address] | | | | | | [place], [place] | | | | | | [address] | | | | | | [phone] | | | | | | | | +--------+ + + + + documented as of this encounter Results LIPID SET (TRIG, T CHOL, HDL, CALC LDL) (08/31/2018 4:17 PM PDT) + +---------+ + + + | Component | Value | Ref Range | Performed | Pathologist | | | | | At | Signature | + +---------+ + + + | CHOLESTEROL | 158 | <200 mg/dL | [facility] | | | (LAB) | | | LABORATORY | | | | | | SERVICES, | | | | | | CORE | | + +---------+ + + + | TRIGLYCERID | 71 | <150 mg/dL | [facility] | | | ES | | | LABORATORY | | | | | | SERVICES, | | | | | | CORE | | + +---------+ + + + | HDL | 52 | >40 mg/dL | [facility] | | [...] +---------+ + + + | LDL | 92 | <100 mg/dL | [facility] | | | CHOLESTEROL | | | LABORATORY | | | , | | | SERVICES, | | | CALCULATED | | | CORE | | + +---------+ + + + | VLDL | 14 | <31 mg/dL | [facility] | | | CHOLESTEROL | | | LABORATORY | | | , | | | SERVICES, | | | CALCULATED | | | CORE | | + +---------+ + + + | NON-HDL | 106 | <130 mg/dL | [facility] | | [...] | + + + + + | [facility] [employer] | [address] | [place] [address] | | | SERVICES, CORE | [address] | | | + + + + + HEMOGLOBIN A1C, BLOOD (08/31/2018 4:17 PM PDT) + + + + + + | Component | Value | Ref Range | Performed | Pathologist | | | | | At | Signature | + + + + + + | HEMOGLOBIN | 5.2Comment: Hgb A1C | <5.7 % | [facility] [...] | [facility] | | considered for monitoring buttermaker helper glycemic control in patients with: | LABORATORY [...] + + + + + | [facility] | [address] | [place] [address] | | | FILI SPECIAL | [address] | | | | IMM + COAG | | | | + + + + + VITAMIN B1, WHOLE BLOOD (08/31/2018 4:17 PM PDT) + + + + + + | Component | Value | Ref Range | Performed | Pathologist | | | | | At | Signature | + + + + + + | VITAMIN B1, | 152Comment: INTERPRETIVE | 70 - 180 nmol/L | [...] | | | | | determined by [facility] | | | | | | Laboratories. See | | | | | | Compliance Statement B: | | | | | | [employer]/CSPerformed | | | | | | by [employer],[address] | | | | | | [facility] | | | | | | [address] | | | | | | [phone].[employer]. | | | | | | com, [...] [facility] | [address] | [place], [place] | | | [facility] | | [address] | | + + + + + COMPLETE METABOLIC SET (NA,K,CL,CO2,BUN,CREAT,GLUC,CA,AST,ALT,BILI TOTAL,ALK PHOS,ALB,PROT TOTAL) (08/31/2018 4:17 PM PDT) + +---------+ + + + | Component | Value | Ref Range | Performed | Pathologist | | | | | At | Signature | + +---------+ + + + | GLUCOSE, | 99 | 70 - 99 mg/dL | [facility] | | | PLASMA | | | LABORATORY | | | (LAB) | | | SERVICES, | | | | | | CORE | | + +---------+ + + + | BUN, PLASMA | 20 | 6 - 20 mg/dL | [facility] | | | (LAB) | | | LABORATORY | | | | | | SERVICES, | | | | | | CORE | | + +---------+ + + + | CREATININE | 0.82 | 0.70 - 1.30 | [facility] | | | PLASMA | | mg/dL | LABORATORY | | | (LAB) | | | SERVICES, | | | | | | CORE | | + +---------+ + + + | EGFR | >60 | >60 mL/min | [facility] | | | - | | | LABORATORY | | | SOMALI | | | SERVICES, | | | | | | CORE | | + +---------+ + + + | EGFR NON | >60 | >60 mL/min | [facility] | | | -MARIAH | | | LABORATORY | | | RICAN | | | SERVICES, | | | | | | CORE | | + +---------+ + + + | SODIUM, | 141 | 136 - 145 | [facility] | | | PLASMA | | mmol/L | LABORATORY | | | (LAB) | | | SERVICES, | | | | | | CORE | | + +---------+ + + + | POTASSIUM, | 3.4 | 3.4 - 5.0 | [facility] | | | PLASMA | | mmol/L | LABORATORY | | | (LAB) | | | SERVICES, | | | | | | CORE | | + +---------+ + + + | CHLORIDE, | 106 | 97 - 108 mmol/L | [facility] [...] +---------+ + + + | CALCIUM, | 9.5 | 8.6 - 10.2 | [facility] | | | PLASMA | | mg/dL | LABORATORY | | | (LAB) | | | SERVICES, | | | | | | CORE | | + +---------+ + + + | CALCIUM(ALB | 9.3 | 8.6 - 10.2 | [facility] | | | CORRECTED) | | mg/dL | LABORATORY | | | | | | SERVICES, | | | | | | CORE | | + +---------+ + + + | BILIRUBIN | 0.5 | 0.3 - 1.2 mg/dL | [facility] | | | TOTAL | | | LABORATORY | | | | | | SERVICES, | | | | | | CORE | | + +---------+ + + + | TOTAL | 8.2 | 6.4 - 8.2 g/dL | [facility] | | | PROTEIN, | | | LABORATORY | | | PLASMA | | | SERVICES, | | | (LAB) | | | CORE | | + +---------+ + + + | ALBUMIN, | 4.3 | 3.5 - 4.7 g/dL | [facility] | | | PLASMA | | | LABORATORY | | | (LAB) | | | SERVICES, | | | | | | CORE | | + +---------+ + + + | ALK PHOS | 96 | 53 - 128 U/L | [facility] | | | | | | LABORATORY | | | | | | SERVICES, | | | | | | CORE | | + +---------+ + + + | AST(SGOT) | 27 | <=41 U/L | [facility] | | | | | | LABORATORY | | | | | | SERVICES, | | | | | | CORE | | + +---------+ + + + | ALT (SGPT) | 46 | <=60 U/L | [facility] | | [...] +---------+ + + + | ANION | 7 | 4 - 11 mmol/L | [facility] [...] the MDRD equation recommended by the | [facility] | | National Kidney Disease Education Program. [...] [facility] | [address] | [place] [address] | | | SERVICES, CORE | [address] | | | + + + + + IRON AND TIBC (08/31/2018 4:17 PM PDT) + +---------+ + + + | Component | Value | Ref Range | Performed | Pathologist | | | | | At | Signature | + +---------+ + + + | IRON | 79 | 50 - 170 ug/dL | [facility] | | | | | | LABORATORY | | | | | | SERVICES, | | | | | | CORE | | + +---------+ + + + | IRON BIND | 456 (H) | 240 - 450 ug/dL | [facility] | | | CAP | | | LABORATORY | | | | | | SERVICES, | | | | | | CORE | | + +---------+ + + + | % | 17 (L) | 20 - 50 % | [facility] [...] [facility] | [address] | [place] [address] | | | SERVICES, CORE | [address] | | | + + + + + VITAMIN B-12 (08/31/2018 4:17 PM PDT) + + + + + + | Component | Value | Ref Range | Performed | Pathologist | | | | | At | Signature | + + + + + + | VITAMIN B12 | 1,406 (H) | 193 - 986 pg/mL | [facility] | | | | | | LABORATORY | | | | | | SERVICES, | | | | | | CORE | | + + + + + + | COMMENT | 1 | | [facility] | | | (HEMO) | | | LABORATORY | | | | | | SERVICES, | | | | | | CORE | | + + + + + + | COMMENT | 1 | | [facility] | | | (ICTERUS) | | | LABORATORY | | | | | | SERVICES, | | | | | | CORE | | + + + + + + | COMMENT | 1 [...] [facility] | [address] | [place] [address] | | | SERVICES, CORE | [address] | | | + + + + + FERRITIN (08/31/2018 4:17 PM PDT) + + + + + + | Component | Value | Ref Range | Performed | Pathologist | | | | | At | Signature | + + + + + + | FERRITIN | 41 (L)Comment: Male and | 50 - 200 ng/mL [...] + + + + + | [facility] | [address] | [place] [address] | | | SERVICES, CORE | [address] | | | + + + + + PTH, SERUM (08/31/2018 4:17 PM PDT) + +---------+ + + + | Component | Value | Ref Range | Performed | Pathologist | | | | | At | Signature | + +---------+ + + + | PTH, SERUM | 106 (H) | 18 - 88 pg/mL | [facility] | | | | | | LABORATORY | | | | | | SERVICES, | | | | | | CORE | | + +---------+ + + + + + | Specimen | + + | Blood - Blood | | (substance) | + + + + + | Narrative | Performed At | + + + | New Reference Range effective 10-28-. | [facility] | | | LABORATORY | | | SERVICES, CORE | + + + + + + + + | Performing | Address | City/State/Zipcode | Phone Number | | Organization | | | | + + + + + | [facility] | [address] | [place] [address] | | | SERVICES, CORE | [address] | | | + + + + + VITAMIN D, 25-HYDROXY, SERUM (08/31/2018 4:17 PM PDT) + + + + + + | Component | Value | Ref Range | Performed | Pathologist | | | | | At | Signature | + + + + + + | VITAMIN D | 24.7 (L) | 30 - 80 ng/mL | [...] | + + + + + | [facility] | [address] | [place] [address] | | | SERVICES, CORE | [address] | | | + + + + + documented in this encounter Visit Diagnoses + + | Diagnosis | + + | S/P gastric bypass - Primary Bariatric surgery status | + + | Essential hypertension | + + | Impaired intestinal absorption Unspecified intestinal malabsorption | + + documented in this encounter
--- OUTSIDE RECORDS SUMMARY | ~2019-10-18 | XMS | Encounter Summary ---
Demographics + + + | Address | [address] | | | [place] [address] | + + + | Home Phone | | + + + | Preferred Language | Unknown | + + + | Marital Status | | + + + | Congregational Affiliation | NRP | + + + | Race | White | + + + | Ethnic Group | Not or | + + + Author + + + | Author | [facility] | + + + | Organization | [facility] | + + + | Address | Unknown | + + + | Phone | Unavailable | + + + Support + + + + + | Name | Relationship | Address | Phone | + + + + + | Pooja Valdez | ECON | [address] | | | | | [place] | | | | | [address] | | + + + + + Care Team Providers + +------+ + | Care Search Marketing Analyst Name | Role | Phone | + +------+ + | Hemalatha Lawrence PA-C | PCP | | + +------+ + Encounter Details +--------+ + + + + | Date | Type | Department | Care Team | Description | +--------+ + + + + | 01/03/ | MyChart | Digestive Health | Arvin Altamirano, | Recovery | | 2017 | Encounter | [facility] [address] | MD [address] | | | | | [address] | [place], [place] | | | | | Mailcode: Center | [address] | | | | | for Health and | [phone] | | | | | Healing, [address] | | | | | | [place], [place] | | | | | | [address] | | | | | | [phone] | | | +--------+ + + + [...] | Office | Pre-operative | 2, [facility] [address] | | | 2019 | Visit | Medicine | [address] | | | | | | [place] [address] | | +--------+ + + + + [...] [place] | | | | | | [address] | | | | | | [phone] | | | | | | | | +--------+ + + + + documented as of this encounter Visit Diagnoses Not on filedocumented in this encounter"
--- OUTSIDE RECORDS SUMMARY | ~2019-10-18 | XMS | Encounter Summary ---
Demographics + + + | Address | [address] | | | [place] [address] | + + + | Home Phone [...] [place] | | | | | [address] | | + + + + + Care Team Providers + +------+ + | Care Cyber Incident Responder Name | Role | Phone | + [...] [facility] | | | with [employer] | | | | [address] | | | | | | | [address] | | | | | | | Mailcode: | | | | | | | [place] [facility] | | | | | | | Health and | | | | | | | Healing, | | | | | | | [address] | | | | | | | [place], [place] | | | | | | | [address] | | | | | | | Phone: | | | | | | | [phone] | | | | | | | Fax: | | | | | | | [phone] | +--------+ + + + + + [...] | | | | Mailcode: Center | [address] | Dx); Insulin | | | | for Health and | | dependent diabetes | | | | [facility] 2 | | mellitus ([facility]); JOSE | | | | [place], [place] | | on CPAP; Essential | | | | [address] | | hypertension; Other | | | [...] to the healing stomach. There are also termite exterminator helper complications of p oor wound healing and [...] pen 20 Units three times daily. iron gly,snm-[id number]-gpwmqkme 150 mg iron-200 mg-250 mcg oral tablet [...] reviewed from Care Everywhere and summarized below: [place] Myocardial Perfusion Study with Exercise ([facility]) 12/15/2010 - H ISTORY: Chest pain.Abnormal EKG. [...] a 4-5% rate of reoperation over the assisted (i.e. years), as well as other late [...] and may approach 5%. We reviewed the [facility] consent form. We discussed that we [...] | 2, [facility] [address] | | | 2019 | Visit | Medicine | [address] | | | | | | [place] [address] | | +--------+ + + + + [...] [address] | | | | | | [place], [place] | | | | | | [address] | | | | | | [phone] | | | | | | | | +--------+ + + + + documented as of this encounter Visit Diagnoses + + | Diagnosis | + + | Morbid obesity with BMI of 40.0-44.9, adult ([facility]) - Primary | + + | Insulin dependent diabetes mellitus ([facility]) Type II or unspecified type diabetes | | mellitus without mention of complication, not stated as uncontrolled | + + | JOSE on CPAP Obstructive sleep apnea (adult) (pediatric) | + + | Essential hypertension | + + | Other hyperlipidemia | + + documented in this encounter
--- OUTSIDE RECORDS SUMMARY | ~2019-10-18 | XMS | Clinical Summary ---
Demographics + + + | Address | [address] | | | [place] [address] | + + + | Home Phone | | + + + | Preferred Language | Unknown | + + + | Marital Status | | + + + | Amish Affiliation | Unknown | + + + | Race | Unknown | + + + | Ethnic Group | Unknown | + + + Author + + + | Author | [facility] [employer] (Historical as of | | | 06-24-19) | + + + | Organization | [facility] [employer] (Historical as of | | | 06-24-19) | + + + | Address | Unknown | + + + | Phone | Unavailable | + + + Support + + +---------+ + | Name | Relationship | Address | Phone | + + +---------+ + | Melvi Betancourt | ECON | Unknown | | + + +---------+ + Care Team Providers + +------+ + | Care Business Services Manager Name | Role | Phone | + +------+ + | Karl Negrete MD | PP | | + +------+ + Allergies Not on File Current Medications Not on file Active Problems Not on file Social History + +-------+ +--------+------+ | Tobacco [...] on file | | + + + Plan of Treatment Not on file Results Not on filefrom Last 3 Months Insurance + +--------+ +------+-------+---------+ | Payer | Benefi | Subscriber | Type | Phone | Address | | | t Plan | ID | | | | | | / | | | | | | | Group | | | | | + +--------+ +------+-------+---------+ | [employer] - | FIRST | [id number] | | | | | COVENTRY | HEALTH | | | | | | | | | | | | | | GENERI | | | | | | | C | | | | | + +--------+ +------+-------+---------+ + +--------+ +--------+ + + | Guarantor Name | Accoun | Relation to | Date | Phone | Billing Address | | | t Type | Patient | of | | | | | | | | | | + +--------+ +--------+ + + | KHURRAM NGUYỄN W | Person | Self | [birth year] | Work: | [address] | | | al/Nilay | | 1970 | +-000- | [place], | | | katya | | | 0000 Home: | [place] [address] | | | | | | | | | | | | | [phone] | | | | | | [phone] | | + +--------+ +--------+ + +"
--- OUTSIDE RECORDS SUMMARY | ~2019-10-18 | XMS | Encounter Summary ---
Demographics + + + | Address | [address] | | | [place] [address] | + + + | Home Phone | | + + + | Preferred Language | Unknown | + + + | Marital Status | | + + + | Restorationist Affiliation | NRP | + + + [...] [place] | | | | | [address] | | + + + + + Care Team Providers + +------+ + | Care Telemetry Nurse Name | Role | Phone | + +------+ + | Rian Sanchez MD | PCP | | + +------+ + Reason for Visit + + + | Reason | Comments | + + + | Bariatric Nutrition | | + + + Encounter Details +--------+---------+ + + + | Date | Type | Department | Care Team | Description | +--------+---------+ + + + | 09/03/ | Office | Digestive Health | | Morbid obesity with | | 2016 | Visit | Center at [facility] [address] | | BMI of 40.0-44.9, | | | | [address] | | adult (HCC) (Primary | | | | Mailcode: Center | | Dx) | | | | for Health and | | | | | | [facility], [address] | | | | | | [place], [place] | | | | | | [address] | | | | | | [phone] | | | +--------+---------+ + + + [...] + + + + | Weight | 145.8 kg (321 lb 6.4 | 09/03/2017 3:20 PM | | | | oz) | PDT | | + + + + + | Height | - | - | | + + + + + | Body Mass Index | 41.27 | 09/03/2017 10:00 AM | | | | | PDT | | + + + + + documented in this encounter Progress Notes Angie Hernandez, RD - 09/03/2017 2:00 PM PDT Referring Provider: Rian Sanchez MD [facility], Pre-Bariatric Surgery Class Pre-Surgery Class #1 prior to having Brynn-En-Y gastric bypass surgery or Sleeve Gastrectomy . Documented Time of Class: 2:00/3:00 until 3:00/4:00 (60 minutes hxrg-lj-ubif with patient) OBJECTIVE: Height: Ht Readings from Last 1 Encounters: 09/03/17 1.88 m (6' 2") Ht Readings from Last 1 Encounters: 09/03/17 1.88 m (6' 2") Wt Readings from Last 2 Encounters: 09/03/17 145.8 kg (321 lb 6.4 oz) 09/03/17 145.2 kg (320 lb) BMI: Body mass index is 41.27 kg/(m^2). Teaching Methods: PowerPoint and verbal presentation with additional written materials. Class content included: 1. Review of renteria points. -Eat within one hour of waking, then every 3 to 4 waking hours (usually 3 meals and 2-3 sna cks daily)Include protein at meals (2-3 ounces) and at snacks (~1 ounce). -Goal is 60-80grams of protein/day -At least 64 ounces of fluids throughout the day (no calories, caffeine, or carbonation) -Separate fluids from meals nothing to drink 30 minutes before, during, and [address] eating -Practice mindful eating eat slowly (30 minutes for meals) without distractions such as T V, computer, phone -Choose foods with < 14 grams of sugar and < 5 grams of fat per serving -30-60 minutes of physical activity most days -Taking vitamins and minerals every day 2. Mindful eating, emotional eating 3. Pre-surgery diet (plate method, label reading, keeping food logs) Assessment: Pt remained attentive throughout the class and/or participated by asking questi ons or sharing information. Yes Angie Hernandez RD, [facility], LD [facility] Bariatrics [phone] documented in this enco unter Plan of Treatment +--------+ + + + + | Date | Type | Specialty | Care Team | Description | +--------+ + + + + | 12/15/ | Office | Pre-operative | 2, Andrés Chambers [address] | | | 2020 | Visit | Medicine | [address] | | | | | | [place] [address] | | +--------+ + + + + | 01/04/ | Procedure | Surgery | | | | 2019 | Pass | | | | +--------+ + + + + | 01/25/ | Office | Otolaryngology | Snatos Valdivia, | | | 2019 | Visit | | [address] | | | | | | [address] | | | | | | [place], [place] | | | | | | [address] | | | | | | [phone] | | | | | | | | +--------+ + + + + documented as of this encounter Visit Diagnoses + + | Diagnosis | + + | Morbid obesity with BMI of 40.0-44.9, adult (HCC) - Primary | + + documented in this encounter
--- OUTSIDE RECORDS SUMMARY | ~2019-10-18 | XMS | Encounter Summary ---
Demographics + + + | Address | [address] | | | [place] [address] | + + + | Home Phone | | + + + | Preferred Language | Unknown | + + + | Marital Status | | + + + | Sikhism Affiliation | NRP | + + + [...] [place] | | | | | [address] | | + + + + + Care Team Providers + +------+ + | Care Business Analyst Intern Name | Role | Phone | + [...] 2018 | Encounter | Center at [facility] [address] | ACNP [address] | | | | | [address] | [place] [facility] [place] | | | | | Mailcode: Center | [address] | | | | | for Health and | [phone] | | | | | Healing, [address] | | | | | | [place], [place] | | | | | | [address] | | | | | | [phone] | | | +--------+ + + + [...] Rd | | | | | | [place] [address] | | +--------+ + + + + [...] [place] | | | | | | [address] | | | | | | [phone] | | | | | | | | +--------+ + + + + documented as of this encounter Visit Diagnoses Not on filedocumented in this encounter"
--- OUTSIDE RECORDS SUMMARY | ~2019-10-18 | XMS | Encounter Summary ---
Demographics + + + | Address | [address] | | | [place] [address] | + + + | Home Phone | | + + + | Preferred Language | Unknown | + + + | Marital Status | | + + + | Rastafari Affiliation | NRP | + + + [...] [address] | | | | | [place] | | | | | [address] | | + + + + + Care Team Providers + +------+ + | Care Vocational School Teacher Name | Role | Phone | + [...] Description | +--------+---------+ + + + | 07/26/ | Office | Digestive Health | | Morbid obesity with | | 2017 | Visit | Center at [facility] [address] | | BMI of 40.0-44.9, | | | | [address] | | adult (HCC) (Primary | | | | Mailcode: Center | | Dx) | | | | for Health and | | | | | | [facility] [address] | | | | | | [place], [place] | | | | | | [address] | | | | | | [phone] | | | +--------+---------+ + + + [...] + + + + | Weight | 146.5 kg (322 lb | 07/26/2017 4:17 PM | | | | 14.4 oz) | PDT | | + + + + + | Height | - | - | | + + + + + | Body Mass Index | 41.46 | 07/08/2017 12:14 PM | | | | | PDT | | + + + + + documented in this encounter Progress Notes Angie Hernandez, RD - 07/26/2017 3:00 PM PDT Referring Provider: Rian Sanchez MD [facility], Pre-Bariatric Surgery Class Pre-Surgery Class #2 prior to having Brynn-En-Y gastric bypass surgery or Sleeve Gastrectomy . Documented Time of Class: 2:00/3:00 until 3:00/4:00 (60 minutes sccx-vh-ffxq with patient) OBJECTIVE: Height: Ht Readings from Last 1 Encounters: 07/08/17 1.88 m (6' 2") Ht Readings from Last 1 Encounters: 07/08/17 1.88 m (6' 2") Wt Readings from Last 2 Encounters: 07/26/17 146.5 kg (322 lb 14.4 oz) 07/08/17 149.1 kg (328 lb 12.8 oz) BMI: Body mass index is 41.46 kg/(m^2). Teaching Methods: PowerPoint and verbal presentation [...] -Taking vitamins and minerals every day 2. Fluids 3. Exercise 4. Vitamins and Minerals & lab work. 5. Liver Reduction Diet 6. Post surgical diet progression Assessment: Pt remained attentive throughout the class and/or participated by asking questi ons or sharing information. Yes Angie Hernandez RD, CNSC, LD [facility] Bariatrics [phone] documented in this enco unter Plan of Treatment +--------+ + + + + | Date | Type | Specialty | Care Team | Description | +--------+ + + + + | 12/15/ | Office | Pre-operative | 2, Andrés Chambers [address] | | 2019 | Visit | Medicine | [address] | | | | | | [place] [address] | | +--------+ + + + + [...] | | | | | | [place], [place] | | | | | | [address] | | | | | | [phone] | | | | | | | | +--------+ + + + + documented as of this encounter Visit Diagnoses + + | Diagnosis | + + | Morbid obesity with BMI of 40.0-44.9, adult (HCC) - Primary | + + documented in this encounter
--- OUTSIDE RECORDS SUMMARY | ~2019-10-18 | XMS | Encounter Summary ---
Demographics + + + | Address | [address] | | | [place] [address] | + + + | Home Phone [...] [place] | | | | | [address] | | + + + + + Care Team Providers + +------+ + | Care Support Services Manager Name | Role | Phone | + +------+ + | Hemalatha Lawrence PA-C | PCP | | + +------+ + Encounter Details +--------+ + + + + | Date | Type | Department | Care Team | Description | +--------+ + + + + | 04/14/ | MyChart | Digestive Health | | RE: RE: | | 2018 | Encounter | Center at [facility] [address] | | RE:Reschedule | | | | [address] | | | | | | Mailcode: Center | | | | | | for Health and | | | | | | Healing, [address] | | | | | | [place], [place] | | | | | | [address] | | | | | | [phone] | | | +--------+ + + + [...] Office | Pre-operative | 2, Andrés Chambers [address] | | | 2020 | Visit | Medicine | [address] | | | | | | [place] [address] | | +--------+ + + + + | 01/04/ | Procedure | Surgery | | | | 2019 | Pass | | | | +--------+ + + + + | 01/25/ | Office | Otolaryngology | Santos Valdivia, | | 2019 | Visit | | [address] | | | | | | [address] | | | | | | [place] | | | | | | [address] | | | | | | [phone] | | | | | | | | +--------+ + + + + documented as of this encounter Visit Diagnoses Not on filedocumented in this encounter"
--- OUTSIDE RECORDS SUMMARY | ~2019-10-18 | XMS | Encounter Summary ---
Demographics + + + | Address | [address] | | | [place] [address] | + + + | Home Phone | | + + + | Preferred Language | Unknown | + + + | Marital Status | | + + + | Jainism Affiliation | NRP | + + + | Race | White | + + + | Ethnic Group | Not or | + + + Author + + + | Author | [facility] | + + + | Organization | [facility] | + + + | Address | Unknown | + + + | Phone | Unavailable | + + + Support + + + + + | Name | Relationship | Address | Phone | + + + + + | Pooja Valdez | ECON | [address] | | | | | [place] | | | | | [address] | | + + + + + Care Team Providers + +------+ + | Care Monomer Purification Operator Name | Role | Phone | [...] 2018 | Encounter | Center at [facility] [address] | MD [address] | | | | | [address] | [place], [place] | | | | | Mailcode: Center | [address] | | | | | for Health and | [phone] | | | | | Healing, [address] | | | | | | [place], [place] | | | | | | [address] | | | | | | [phone] | | | +--------+ + + + [...] | 2, [facility] [address] | | | 2020 | Visit | Medicine | [address] | | | | | | [place] [address] | | +--------+ + + + + | 01/04/ | Procedure | Surgery | | | | 2019 | Pass | | | | +--------+ + + + + | 01/25/ | Office | Otolaryngology | Santos Valdivia, | | | 2019 | Visit | | [address] [facility] | | | | | | [address] | | | | | | [facility] [place] | | | | | | [address] | | | | | | [phone] | | | | | | | | +--------+ + + + + documented as of this encounter Visit Diagnoses Not on filedocumented in this encounter"
--- OUTSIDE RECORDS SUMMARY | ~2019-10-18 | XMS | Encounter Summary ---
Demographics + + + | Address | [address] | | | [place] [address] | + + + | Home Phone | | + + + | Preferred Language | Unknown | + + + | Marital Status | | + + + | Druze Affiliation | NRP | + + + | Race | White | + + + | Ethnic Group | Not or | + + + Author + + + | Author | [facility] | + + + | Organization | [facility] | + + + | Address | Unknown | + + + | Phone | Unavailable | + + + Support + + + + + | Name | Relationship | Address | Phone | + + + + + | Pooja Valdez | ECON | [address] | | | | | [place] | | | | | [address] | | + + + + + Care Team Providers + +------+ + | Care Manager Of Training And Development Name | Role | Phone | + +------+ + | Hemalatha Lawrence PA-C | PCP | | + +------+ + Encounter Details +--------+ + + + + | Date | Type | Department | Care Team | Description | +--------+ + + + + | 01/16/ | Inspector Sheet Metal Parts | LAB CORE [address] | Bonny Souza MD | Pre-op testing | | 2018 | | [address] | [address] | (Primary Dx) | | | | [place], [place] | [address] | | | | | [address] | [place], [place] | | | | | [phone] | [address] | | | | | | [phone] | | | | | | | [...] 12/15/ | Office | Pre-operative | 2, [facility] [address] | | | 2019 | Visit | Medicine | [address] | | | | | | [place] [address] | | +--------+ + + + + [...] Rd | | | | | | [place], [place] | | | | | | [address] | | | | | | [phone] | | | | | | | [...] | + + + + + | [facility] | [address] | [place] [address] | | | SERVICES, | [address] | | | | TRANSFUSION MEDICINE | | | | + + + + + documented in this encounter Visit Diagnoses + + | Diagnosis | + + | Pre-op testing - Primary Preoperative examination, unspecified | + + documented in this encounter"
--- OUTSIDE RECORDS SUMMARY | ~2019-10-18 | XMS | Encounter Summary ---
Demographics + + + | Address | [address] | | | [place] [address] | + + + | Home Phone | | + + + | Preferred Language | Unknown | + + + | Marital Status | | + + + | Mandaen Affiliation | NRP | + + + [...] [address] | | | | | [place] | | | | | [address] | | + + + + + Care Team Providers + +------+ + | Care Visual Merchandising Director Name | Role | Phone | + [...] | Camron Mailcode: [id number] | [address] [place], | | | | | [place], [place] | [place] [address] | | | | | [address] | [phone] | | | | | [phone] | | | +--------+ + + + [...] | Office | Pre-operative | 2, [facility] [address] | | | 2020 | Visit | Medicine | [address] | | | | | | [place] [address] | | +--------+ + + + + [...] Rd | | | | | | [place], [place] | | | | | | [address] | | | | | | [phone] | | | | | | | [...] | CT HEAD WWO | Radiologist 1: Nba SON | | SALOMON | Nba LOMBARDI [...] | | + +---------+ + + | [facility] DEPARTMENT OF | | | | | [...] | | | | | | planning. Steger | | | | | | sinus [...] | | + +---------+ + + | [facility] DEPARTMENT OF | | | | | [...] | + + + + + | [facility] DEPARTMENT OF | [facility] | [place] [address] | | | PATHOLOGY | [address] | | | + + + + + | [facility] DEPARTMENT OF | [address] | [place] [address] | | | PATHOLOGY | [address] [...] | + + + + + | [facility] DEPARTMENT OF | [address] | [place] [address] | | | PATHOLOGY | [address] | | | + + + + + | [facility] | [address] | [place] [address] | | | PATHOLOGY | [address] | | | + + + + + CT HEAD WO CONTRAST (02/13/2006 9:22 AM PDT) + + + + + + | Component | Value | Ref Range | Performed | Pathologist | | | | | At | Signature | + + + + + + | CT HEAD WO | Radiologist 1: DAELAIDA, | | | | | CONTRAST | [...] | | + +---------+ + + | [facility] DEPARTMENT OF | | | | | RADIOLOGY | | | | + +---------+ + + documented in this encounter Visit Diagnoses Not on filedocumented in this encounter"
--- OUTSIDE RECORDS SUMMARY | ~2019-10-18 | XMS | Encounter Summary ---
Demographics + + + | Address | [address] | | | [place] [address] | + + + | Home Phone [...] + + + | Author | [facility] | + + + | Organization | [facility] | + + + | Address | Unknown | + + + | Phone | Unavailable | + + + Support + + + + + | Name | Relationship | Address | Phone | + + + + + | Pooja Valdez | ECON | [address] | | | | | [place] | | | | | [address] | | + + + + + Care Team Providers + +------+ + | Care Pony Ride Operator Name | Role | Phone | [...] 2018 | Encounter | Center at [facility] [address] | AGACNP [address] | | | | | [address] | [place], [place] | | | | | Mailcode: Center | [address] | | | | | for Health and | | | | | | [facility] 2 | | | | | | [place], [place] | | | | | | [address] | | | | | | | [...] 12/15/ | Office | Pre-operative | 2, [facility] [address] | | | 2020 | Visit | Medicine | [address] | | | | | | [place] [address] | | +--------+ + + + + [...] Rd | | | | | | [place] | | | | | | [address] | | | | | | [phone] | | | | | | | | +--------+ + + + + documented as of this encounter Visit Diagnoses Not on filedocumented in this encounter"
--- OUTSIDE RECORDS SUMMARY | ~2019-10-18 | XMS | Encounter Summary ---
Demographics + + + | Address | [address] | | | [place] [address] | + + + | Home Phone | | + + + | Preferred Language | Unknown | + + + | Marital Status | | + + + | Confucianist Affiliation | NRP | + + + [...] [place] | | | | | [address] | | + + + + + Care Team Providers + +------+ + | Care Warp Hauler Name | Role | Phone | + +------+ + | Hemalatha Lawrence PA-C | PCP | | + +------+ + Reason for Visit + + + | Reason | Comments | + + + | Question | | + + + Encounter Details +--------+ + + + + | Date | Type | Department | Care Team | Description | +--------+ + + + + | 05/13/ | Telephone | Digestive Health | Tonia Greenberg ACNP | Question | | 2018 | | Center at [facility] [address] | [address] | | | | | [address] | [address] [place], | | | | | Mailcode: [place] | [place] [address] | | | | | for Health and | [phone] | | | | | [facility] 2 | | | | | | [place], [place] | | | | | | [address] | | | | | | [phone] | | | +--------+ + + + [...] 12/15/ | Office | Pre-operative | [facility] [address] | | | 2019 | Visit | Medicine | [address] | | | | | | [place] [address] | | +--------+ + + + + | 01/04/ | Procedure | Surgery | | | | 2019 | Pass | | | | +--------+ + + + + | 01/25/ | Office | Otolaryngology | Santos Valdivia, | | | 2019 | Visit | | [address] | | | | | | [address] | | | | | | [place], [place] | | | | | | [address] | | | | | | [phone] | | | | | | | | +--------+ + + + + documented as of this encounter Visit Diagnoses Not on filedocumented in this encounter"
--- OUTSIDE RECORDS SUMMARY | ~2019-10-18 | XMS | Encounter Summary ---
Demographics + + + | Address | [address] | | | [place] [address] | + + + | Home Phone [...] + + + | Author | [facility] | + + + | Organization | [facility] | + + + | Address | Unknown | + + + | Phone | Unavailable | + + + Support + + + + + | Name | Relationship | Address | Phone | + + + + + | Pooja Valdez | ECON | [address] | | | | | [place] | | | | | [address] | | + + + + + Care Team Providers + +------+ + | Care Chief Internal Auditor Name | Role | Phone | + [...] | | | | | | | [facility] | | | | | | | Health and | | | | | | | Healing, | | | | | | | [address] | | | | | | | [place], [place] | | | | | | | [address] | | | | | | | Phone: | | | | | | | [phone] | | | | | | | Fax: | | | | | | | [phone] | +--------+--------+ + + + + Encounter Details +--------+---------+ + + + | Date | Type | Department | Care Team | Description | +--------+---------+ + + + | 06/23/ | Office | Digestive Health | Key Castellano, | Morbid obesity with | | 2016 | Visit | Center at [facility] [address] | body mass index of | | | | ARMIN Yang Sophie | [address] | 40.0-44.9 in adult | | | | Mailcode: [facility] | [place], [place] | ([facility]) (Primary Dx) | | | | for Health and | [address] | | | | | [facility], [facility] [address] | | | | | | [place], [place] | | | | | | [address] | | | | | | [phone] | | | +--------+---------+ + + + [...] + + + + | Weight | 150.1 kg (331 lb) | 06/23/2017 2:01 PM | | | | | PDT | | + + + + + | Height | 190.5 cm (6' 3") | 06/23/2017 2:01 PM | | | | | PDT | | + + + + + | Body Mass Index | 41.37 | 06/23/2017 2:01 PM | | | | | PDT | | + + + + + documented in this encounter Progress Notes Gray DOLL, Key - 06/23/2017 2:00 PM PDTFormatting of this note might be different fro m the original. Referring Provider: Rian Sanchez MD [facility], Pre-Bariatric Surgery Evaluation Initial diet consultation prior to having Brynn-En-Y gastric bypass surgery OR Sleeve Gastre ctomy. Documented Time of Visit: 2:00 until 2:50 (50 minutes vjfd-ak-vyfr with patient) SUBJECTIVE: Pt comes in alone (from [employer]). Pt goes by Don. 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 Patient viewed online seminar prior to visit. What have you been doing to prepare for surgery: Researching x 1 month. Ex- had surgery 6-7 years ago. Questions/Information desired today: None Goals & reasons why patient wants to have bariatric surgery: Weight is dragging him down, a ffecting him at work and wants to keep up with 7 yo daughter. Food Allergies: No Food Intolerances: Yes Lactose Intolerance: Yes, ice cream causes phlegm build up. Skim or 1% milk ok. 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 Yes, but lots of knee, back, feet pain even with extended standing o r sitting Current Physical Exercise: nothing Food recall: works 4pm- midnight Awakes at 7-9 am, bedtime 2-3 am Bkfst:Bowl of cereal or skips (50% of the time) Lunch: Camby (brought from home) or fast food Dinner: just snacking on Fruit or granola bar or summer sausage Occ bedtime snack: bowl of cereal (corn flakes + 1% milk) Beverages: Water, occ diet soda/soda, crystal light, no juice or ETOH, milk-1 glass daily OBJECTIVE: Height: Ht Readings from Last 1 Encounters: 06/23/17 1.905 m (6' 3") Weight: Wt Readings from Last 1 Encounters: 06/23/17 150.1 kg (331 lb) BMI: Body mass index is 41.37 kg/(m^2). Past Medical History: Past Medical History: Diagnosis Date Anxiety Depression HBP (high blood pressure) Headache High cholesterol Numbness and tingling JOSE on CPAP Thyroid activity decreased Insulin dependant diabetes diagnosed 13 years ago Medications: See list in Epic snap shot Medications for Diabetes: Victoza 1.2 mg, Humalog 40 units in am, Treshiba 100 units daily Checking blood glucose: yes, 3-6x/d Dietary Supplements: methyl B12 5,000 mcg Labs: see Results Review for current labs (if available) Nutrition Diagnosis: Obesity as evidenced by BMI of Body mass index is 41.37 kg/(m^2).. Factors contributing to obesity: Emotional eating Lack of a regular physical activity program Intake of excessive empty calories Pre-Surgery Diet: Provided written diet suggestions to help patient lose weight before surgery. -Eat within one hour of waking, then every 3-4 waking hours -Include protein with all meals & snacks -Use healthy plate model or frozen entree (~300 calories, < 600 mg sodium) at lunch & dinn er -Begin keeping daily food logs -Choose foods & beverages with < 14 g sugar & < 5 g fat per serving -Eliminate liquid calories and carbonation; limit caffeine to 16 oz/day Discussed behavior changes to practice before surgery to prepare for surgery. -Begin fluids from meals by 30 minutes before and after -Sip fluids throughout the day, aim for 64 oz/day (non-caloric, non-caffeinated, non-carbo nated) -Begin practicing mindful eating Explore exercise program options Post-surgery diet education: Provided visual, verbal, & written information on all aspects of bariatric surgery. Discuss ed lifelong behavior changes, proper diet selections, and exercise. Encouraged patient to fo llow up with dietitian pre- or post-surgery. Written education provided: Provided and reviewed an instructional handout (bariatric surgery notebook) with patricia bridges on post-surgery diet progression, sample menus, behavior modifications, food items, and vi tamin and mineral supplements needed after surgery. Emphasized the importance of a regular p hysical activity program of 30-60 minutes per day to maintain weight loss post-surgery. Patient's Comprehension: The patient is: Receptive Stage of change: Pre contemplation Barrier(s) to education: No Learning style: Patient is a Visual learner and Verbal learner Information provided in writing, and used visual aids to demonstrate food portions post-osiel leopoldo and size of stomach after surgery. Expected Outcome: I think the patient will do moderately if following all lifestyle and be havioral changes discussed today. Patient verbalizes understanding that surgery is a tool to help achieve and maintain weight loss but that surgery will not eliminate the problems that led to weight gain. Yes GOAL: The patient's goal is to have weight loss surgery to maintain weight loss and improve other health conditions. 1. Continue to practice behavioral changes to prepare for surgery. 2. Increase physical activity. 3. Review all information provided for post surgery diet progression in bariatric surger y notebook. Attend 2 pre-surgery classes. 4. Call or send Windward message to dietitian with any questions. Contact information was provided. Follow up with dietitian 1-2 weeks after surgery at first post-op visit. Key Castellano RD,SASHA Pager# [phone] Phone: [phone] documented in this en counter Plan of Treatment +--------+ + + + + | Date | Type | Specialty | Care Team | Description | +--------+ + + + + | 12/15/ | Office | Pre-operative | 2, Andrés Chambers [address] | | | 2019 | Visit | Medicine | [address] | | | | | | [place] [address] | | +--------+ + + + + [...] Rd | | | | | | [place], [place] | | | | | | [address] | | | | | | [phone] | | | | | | | | +--------+ + + + + documented as of this encounter Procedures + +--------+ + + + | Procedure Name | Priori | Date/Time | Associated Diagnosis | Comments | | | ty | | | | + +--------+ + + + | [place] MNT INITIAL | Routin | 06/23/2017 | Morbid obesity | | | ASSESSMNT X15MIN | e | 2:58 PM | with body mass index | | | | | PDT | of 40.0-44.9 in | | | | | | adult (HCC) | | + +--------+ + + + documented in this encounter Visit Diagnoses + + | Diagnosis | + + | Morbid obesity with body mass index of 40.0-44.9 in adult ([facility]) - Primary | + + documented in this encounter
--- OUTSIDE RECORDS SUMMARY | ~2019-10-18 | XMS | Encounter Summary ---
Demographics + + + | Address | [address] | | | [place] [address] | + + + | Home Phone [...] + + + | Author | [facility] | + + + | Organization | [facility] | + + + | Address | Unknown | + + + | Phone | Unavailable | + + + Support + + + + + | Name | Relationship | Address | Phone | + + + + + | Pooja Valdez | ECON | [address] | | | | | [place] | | | | | [address] | | + + + + + Care Team Providers + +------+ + | Care Visiting Housekeeper Name | Role | Phone | + +------+ + | Hemalatha Lawrence PA-C | PCP | | + +------+ + Encounter Details +--------+ + + + + | Date | Type | Department | Care Team | Description | +--------+ + + + + | 03/28/ | Abstract | Digestive Health | Clinic, Surgery | | | 2018 | | [place] [facility] [address] | | | | | | [address] | | | | | | Mailcode: Center | | | | | | for Health and | | | | | | Healing, [address] | | | | | | [place], [place] | | | | | | [address] | | | | | | [phone] | | | +--------+ + + + [...] Office | Pre-operative | 2, Andrés Chambers [address] | | | 2020 | Visit | Medicine | [address] | | | | | | [place] [address] | | +--------+ + + + + [...] | | | | | | [facility] [place] | | | | | | [address] | | | | | | [phone] | | | | | | | | +--------+ + + + + documented as of this encounter Visit Diagnoses Not on filedocumented in this encounter"
--- OUTSIDE RECORDS SUMMARY | ~2019-10-18 | XMS | Encounter Summary ---
Demographics + + + | Address | [address] | | | [place] [address] | + + + | Home Phone [...] [place] | | | | | [address] | | + + + + + Care Team Providers + +------+ + | Care B2B Outside Sales Representative Name | Role | Phone | [...] Closed | | Gastroenterol | Diagnoses | Evelia, | Gas Endo | | | | ogy | Stenosis of | Arvin Briscoe MD | [address] | | | | | | [address] | | | | | gastrointest | [address] | Mailcode: | | | | | inal | [place], [place] | [facility] | | | | | structure | [address] | for Health | | | | | (HCC) | Phone: | and Healing, | | | | | Unable to | | Building [address] | | | | | eat solid | Fax: | [place], [place] | | | | | foods | [phone] | [address] | | | | | Abdominal | | Phone: | | | | | pain, | | [phone] | | | | | unspecified | | Fax: | | | | | abdominal | | [phone] | | | | | location | | | | | | | Intractable | | | | | | | vomiting | | | | | | | with nausea, | | | | | | | unspecified | | | | | | | vomiting | | | | | | | type | | | | | | | Procedures | | | | | | | CONSULT TO | | | | | | | GI PROCEDURE | | | | | | | UNIT: OTHER | | | | | | | CONSULT TO | | | | | | | GI | | | | | | | PROCEDURE | | | | | | | UNIT: EGD W | | | | | | | DILATION VA | | | | | | | UPPER GI | | | | | | | ENDOSCOPY,BI | | | | | | | OPSY VA UP | | | | | | | GI | | | | | | | ENDOSCOPY,BA | | | | | | | LL DIL,30MM | | | +--------+--------+ + + + + Encounter Details +--------+ + + + + | Date | Type | Department | Care Team | Description | +--------+ + + + + | 04/15/ | Telephone | Digestive Health | EveliaArvin Luis Felipe, | | | 2017 | | Center at [facility] [address] | MD [address] | | | | | [address] | [place], [place] | | | | | Mailcode: [place] | [address] | | | | | [facility] and | | | | | | [facility] 2 | | | | | | [place], [place] | | | | | | [address] | | | | | | | [...] | Office | Pre-operative | 2Andrés Md | | | 2019 | Visit | Medicine | [address] | | | | | | [place] [address] | | +--------+ + + + + | 01/04/ | Procedure | Surgery | | | | 2019 | Pass | | | | +--------+ + + + + | 01/25/ | Office | Otolaryngology | Santos Valdivia, | | | 2019 | Visit | | [address] | | | | | | [address] | | | | | | [place], [place] | | | | | | [address] | | | | | | [phone] | | | | | | | | +--------+ + + + + documented as of this encounter Visit Diagnoses + + | Diagnosis | + + | 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
--- OUTSIDE RECORDS SUMMARY | ~2019-10-18 | XMS | Encounter Summary ---
Demographics + + + | Address | [address] | | | [place] [address] | + + + | Home Phone [...] + + + | Author | [facility] | + + + | Organization | [facility] | + + + | Address | Unknown | + + + | Phone | Unavailable | + + + Support + + + + + | Name | Relationship | Address | Phone | + + + + + | Pooja Valdez | ECON | [address] | | | | | [place] | | | | | [address] | | + + + + + Care Team Providers + +------+ + | Care Lighting Equipment Operator Name | Role | Phone | + +------+ + | Rian Sanchez MD | PCP | | + +------+ + Reason for Visit + + + | Reason | Comments | + + + | Lab findings, | Preop echo | | teaching, guidance, | | | and counseling | | + + + Encounter Details +--------+ + + + + | Date | Type | Department | Care Team | Description | +--------+ + + + + | 10/11/ | MyChart | Cardiology | Poly Joseph | RE: RE:Preop echo | | 2017 | Encounter | Preventive at [facility] | [address] | | | | | [address] | [address] [place], | | | | | Mailcode: CH9[facility] | [place] [address] | | | | | [facility] | [phone] | | | | | and [facility], | | | | | | Building [address] | | | | | | [place], [place] | | | | | | [address] | | | | | | [phone] | | | +--------+ + + + [...] | 12/15/ | Office | Pre-operative | [facility] [address] | | | 2019 | Visit | Medicine | [address] | | | | | | [place] [address] | | +--------+ + + + + [...] Rd | | | | | | [place], [place] | | | | | | [address] | | | | | | [phone] | | | | | | | | +--------+ + + + + documented as of this encounter Visit Diagnoses + + | Diagnosis | + + | Essential hypertension - Primary | + + documented in this encounter"
--- OUTSIDE RECORDS SUMMARY | ~2019-10-18 | XMS | Encounter Summary ---
Demographics + + + | Address | [address] | | | [place] [address] | + + + | Home Phone | | + + + | Preferred Language | Unknown | + + + | Marital Status | | + + + | Adventist Affiliation | NRP | + + + | Race | White | + + + | Ethnic Group | Not or | + + + Author + + + | Author | [facility] | + + + | Organization | [facility] | + + + | Address | Unknown | + + + | Phone | Unavailable | + + + Support + + + + + | Name | Relationship | Address | Phone | + + + + + | Pooja Valdez | ECON | [address] | | | | | [place] | | | | | [address] | | + + + + + Care Team Providers + +------+ + | Care Physical Chemist Name | Role | Phone | + [...] | | | | | | | [place] for | | | | | | | Health and | | | | | | | Healing, | | | | | | | Building [address] | | | | | | | [place], [place] | | | | | | | [address] | | | | | | | Phone: | | | | | | | [phone] | | | | | | | Fax: | | | | | | | [phone] | +--------+--------+ + + + + Encounter Details +--------+---------+ + + + | Date | Type | Department | Care Team | Description | +--------+---------+ + + + | 06/23/ | Office | Digestive Health | Key Castellano, | Morbid obesity with | | 2016 | Visit | Center at [facility] [address] | [address] | body mass index of | | | | ARMIN Yang Sophie | [address] | 40.0-44.9 in adult | | | | Mailcode: [place] | [place], [place] | ([facility]) (Primary Dx) | | | | for Health and | [address] | | | | | [facility] 2 | | | | | | [place], [place] | | | | | | [address] | | | | | | [phone] | | | +--------+---------+ + + + [...] of Visit: 2:00 until 2:50 (50 minutes szxc-md-dnkl with patient) SUBJECTIVE: Pt comes in alone (from [employer]). Pt goes by Don. 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 Patient viewed online seminar prior [...] Emotional Eating: Yes, due to boredom Weight change management expert the past year: Increased Previous weight loss [...] or skips (50% of the time) Lunch: [employer] (brought from home) or fast food Dinner: [...] 2 pre-surgery classes. 4. Call or send Baloonr message to dietitian with any questions. Contact information was provided. Follow up with dietitian 1-2 weeks after surgery at first post-op visit. Key Castellano RD,SASHA Pager# [phone] Phone: [phone] documented in this en counter Plan of Treatment +--------+ + + + + | Date | Type | Specialty | Care Team | Description | +--------+ + + + + | 12/15/ | Office | Pre-operative | 2, Andrés Chambers [address] | | | 2019 | Visit | Medicine | [address] | | | | | | [place] [address] | | +--------+ + + + + [...] Rd | | | | | | [place], [place] | | | | | | [address] | | | | | | [phone] | | | | | | | | +--------+ + + + + documented as of this encounter Procedures + +--------+ + + + | Procedure Name | Priori | Date/Time | Associated Diagnosis | Comments | | | ty | | | | + +--------+ + + + | [place] MNT INITIAL | Routin | 06/23/2017 | [...] body mass index of 40.0-44.9 in adult ([facility]) - Primary | + + documented in this encounter
--- OUTSIDE RECORDS SUMMARY | ~2019-10-18 | XMS | Encounter Summary ---
Demographics + + + | Address | [address] | | | [place] [address] | + + + | Home Phone [...] Author | [facility] | + + + | Organization | [facility] | + + + | Address | Unknown | + + + | Phone | Unavailable | + + + Support + + + + + | Name | Relationship | Address | Phone | + + + + + | Pooja Valdez | ECON | [address] | | | | | [place] | | | | | [address] | | + + + + + Care Team Providers + +------+ + | Care Learning Center Coordinator Name | Role | Phone | + +------+ + | Rian Sanchez MD | PCP | | + +------+ + Encounter Details +--------+ + + + + | Date | Type | Department | Care Team | Description | +--------+ + + + + | 10/05/ | Abstract | Cardiology | Poly Joseph | | | 2016 | | Preventive at [facility] | [address] | | | | | [address] | [address] [place], | | | | | Mailcode: [place] | [place] [address] | | | | | [facility] | [phone] | | | | | and Healing, | | | | | | [address] | | | | | | [place], [place] | | | | | | [address] | | | | | | [phone] | | | +--------+ + + + [...] Rd | | | | | | [place] [address] | | +--------+ + + + + [...] [place] | | | | | | [address] | | | | | | [phone] | | | | | | | | +--------+ + + + + documented as of this encounter Visit Diagnoses Not on filedocumented in this encounter"
--- OUTSIDE RECORDS SUMMARY | ~2019-10-18 | XMS | Encounter Summary ---
Demographics + + + | Address | [address] | | | [place] [address] | + + + | Home Phone [...] [place] | | | | | [address] | | + + + + + Care Team Providers + +------+ + | Care Metal Slitter Name | Role | Phone | + +------+ + | Hemalatha Lawrence PA-C | PCP | | + +------+ + Reason for Visit + + + | Reason | Comments | + + + | Telephone follow-up | 04/1418 | + + + Encounter Details +--------+ + + + + | Date | Type | Department | Care Team | Description | +--------+ + + + + | 04/22/ | Telephone | Endoscopic | Judy Gonzalez MD | Telephone follow-up | | 2018 | | Procedural Unit at | [address] | (04/1418) | | | | [address] | [place], [place] | | | | | [address] | [address] | | | | | Mailcode: [facility] | [phone] | | | | | [facility] | | | | | | [address] [place], [place] | | | | | | [address] | | | | | | [phone] | | | +--------+ + + + [...] | Office | Pre-operative | 2, [facility] [address] | | | 2019 | Visit | Medicine | [address] | | | | | | [place] [address] | | +--------+ + + + + [...] Rd | | | | | | [place], [place] | | | | | | [address] | | | | | | [phone] | | | | | | | | +--------+ + + + + documented as of this encounter Visit Diagnoses Not on filedocumented in this encounter"
--- OUTSIDE RECORDS SUMMARY | ~2019-10-18 | XMS | Encounter Summary ---
Demographics + + + | Address | [address] | | | [place] [address] | + + + | Home Phone | | + + + | Preferred Language | Unknown | + + + | Marital Status | | + + + | Mandaeism Affiliation | NRP | + + + | Race | White | + + + | Ethnic Group | Not or | + + + Author + + + | Author | [facility] | + + + | Organization | [facility] | + + + | Address | Unknown | + + + | Phone | Unavailable | + + + Support + + + + + | Name | Relationship | Address | Phone | + + + + + | Pooja Valdez | ECON | [address] | | | | | [place] | | | | | [address] | | + + + + + Care Team Providers + +------+ + | Care Investigator Vice Name | Role | Phone | + +------+ + | Hemalatha Lawrence PA-C | PCP | | + +------+ + Encounter Details +--------+ + + + + | Date | Type | Department | Care Team | Description | +--------+ + + + + | 01/31/ | MyChart | Digestive Health | Mei Flores, | Questions | | 2018 | Encounter | Center at [facility] [address] | [place] [address] | | | | | [address] | [address] | | | | | Mailcode: Center | [place], [place] | | | | | for Health and | [address] | | | | | Healing, [address] | | | | | | [place], [place] | | | | | | [address] | | | | | | [phone] | | | +--------+ + + + [...] 12/15/ | Office | Pre-operative | 2, [facility] [address] | | | 2020 | Visit | Medicine | [address] | | | | | | [place] [address] | | +--------+ + + + + | 01/04/ | Procedure | Surgery | | | | 2019 | Pass | | | | +--------+ + + + + | 01/25/ | Office | Otolaryngology | Santos Valdivia, | | | 2019 | Visit | | [address] [facility] | | | | | | [address] | | | | | | [place] | | | | | | [address] | | | | | | [phone] | | | | | | | | +--------+ + + + + documented as of this encounter Visit Diagnoses Not on filedocumented in this encounter"
--- OUTSIDE RECORDS SUMMARY | ~2019-10-18 | XMS | Encounter Summary ---
Demographics + + + | Address | [address] | | | [place] [address] | + + + | Home Phone [...] + + + | Author | [facility] | + + + | Organization | [facility] | + + + | Address | Unknown | + + + | Phone | Unavailable | + + + Support + + + + + | Name | Relationship | Address | Phone | + + + + + | Pojoa Valdez | ECON | [address] | | | | | [place] | | | | | [address] | | + + + + + Care Team Providers + +------+ + | Care Marketing Services Vice President Name | Role | Phone | + +------+ + | Rian Sanchez MD | PCP | | + +------+ + Reason for Visit Physical Therapy (Routine) +--------+--------+ + + + [...] | | | | | obesity, | [place], [place] | [facility] | | | | | unspecified | [address] | for Health | | | | | obesity type | Phone: | and Healing, | | | | | (HCC) | [phone] | Building 1, | | | | | Procedures | Fax: | [address] Floor | | | | | PHYSICAL | [phone] | [place], [place] | | | | | THERAPY | | [address] | | | | | REFERRAL | | Phone: | | | | | | | [phone] | | | | | | | Fax: | | | | | | | [phone] | +--------+--------+ + + + + Encounter Details +--------+---------+ + + + | Date | Type | Department | Care Team | Description | +--------+---------+ + + + | 06/23/ | Office | [facility] | Maryuri Stuart, PT | Morbid obesity, | | 2017 | Visit | Therapy Services at | [address] | unspecified obesity | | | | [facility] | [address] [place], | type ([facility]) (Primary | | | | [address] | [place] [address] | Dx) | | | | Mailcode: [facility] | [phone] | | | | | [facility] | | | | | | and Healing, | | | | | | Building | | | | | | [place], [place] | | | | | | [address] | | | | | | [phone] | | | +--------+---------+ + + + [...] documented as of this encounter Progress Notes Maryuri Stuart, PT - 06/23/2017 3:30 PM PDT Insurance: Payor: [employer] / Plan: [employer] / Product Type: PPO / Non-Medicare [facility] PHYSICAL THERAPY EVALUATION Past Medical History: Diagnosis Date Anxiety Depression HBP (high blood pressure) Headache High cholesterol Numbness and tingling JOSE on CPAP Thyroid activity decreased Past Surgical History Procedure Laterality Date Ankle fracture surgery 2000 Hand surgery Left 2006 Sinus surgery 2005 Sinus surgery 2012 Current Outpatient Prescriptions: AUGMENTIN 875 MG-125 MG [...] subcutaneous pen injector, , Disp: , Rfl: Previous physical therapy treatment or alternative treatments for this condition includes: n/a Results of previous treatment: N/A. Concurrent medical treatment: PCP. SUBJECTIVE: 06/23/2017 Condition Specific Evaluation: Including Body functions, Body structures and Impairments Pain: pain is a significant clinical problem [facility] PHYSICAL THERAPY EVALUATION History of Presenting Problem: Pt is here for Prehabilitation evaluation prior to Bariatric abdominal surgery. He plans to have gastric sleeve surgery . Prior Services: - Current Services: Bariatric Current PA: none Pain Reported in location of knees, low back Pain is a 6 on a scale of 0-10. Pain is: intermittent. states their pain is dull. The f ollowing activities aggravate the pain:PAin is with prolonged standing or sitting for back, stairs and standing for knees. Current functional Status: The pain limits the 's ability to walk. The pain is relieved by rest. sleep is not inter rupted by the pain. sleeps 7 hours per night and does not wake rested. CPAP but not consi stent. Current stress level is moderate. Current stressors are -. 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 lives ke e. Living situation/environment is limiting function: no Equipment at home: possible gym ac cess. Requests family members or friends involved with rehabilitation therapy: No Anxieties o r concerns about therapy: no Patient's goals are to: return to previous activity level and improve health. OBJECTIVE: EXAM: Vitals: BP 124/81 mmHg HR: 76 Weight: 331 lbs ROM: WFL except HBB, mid back MMT: Grossly 5/5 UE/LE Balance/Coordination: - rhomberg eyes closed , unilateral balance right (seconds) 10 and un ilateral balance left (seconds) 10 EC unable. Outcome Measures: Outcome measure Score 06/23/2017 Interpretation Goal at 12 weeks 30 sec sit to stand ! 5 reps Normal values: 30 y/o = 30 reps 40 y/o = 25 reps 50 y/o = 20 reps 60 y/o = 15 reps 70 y/o = 13 reps 80 y/o = 12 reps 90 y/o = 10 reps 30 sec sit to stand: 25 6 min walk test: Vitals at rest:BP 124/81 mmHg HR: 76 Vitals at end of walk test: HR 94 158/85 mmHg Distance walked: 1760 ft Assistive device: none Deviations: none Seated/standing breaks: none (Track = 110') RPE moderate 6-Minute Walk Test Distances: Means and Standard Deviations by Age and Gender 18-29 yo: male 2346'/female 2129' 30-39 yo: male 2346'/female 2133' 40-49 yo: male 2323'/female 2178' 50-59 yo: male 2178'/female 2093' 60-69 yo: male 2073'/female 1880' 70-79 yo: male 1883'/female 1673' 80-89 yo: male 1660'/female 1737' Treatment: Therapeutic exercises:15minutes Intervention Date* Comments Compliance 06/23/2017 Predicted: fair-good Progressive walking program 06/23/2017 Performing activity at work, recommend days off to try pool or cycle(non-WB exercises) General light strengthening/stretching exercises 06/23/2017 Instructions and handout provi ded Logroll instruction 06/23/2017 Instructions and handout provided Abdominal precautions instruction 06/23/2017 Instructions and handout provided * indicates date intervention started. see comments for details of compliance, modification s, deletions ASSESSMENT: Patient is a referred to PT for prehabilitation evaluation prior to Bariatric a bdominal surgery. Patient exam findings include decreased ROM, decreased strength, decreased activity tolerance and physical deconditioning. Scored very low on functional strength and low with 6 MWT, functional tests. Symptoms are limiting patient with daily and functional a ctivities including: rising from floor, or low seat. Endurance with stairs or hiking/walkin g for wellness. MMT for quads was 5/5 but functionally low. He will discuss with his MD. Best evidence practice recommends obese pt's with knee pain lose 5% of their wt doing non-w t bearing activities prior to doing wt bearing activities to avoid progress on OA. Patient has been provided with instruction on appropriate exercise and pain control strateg ies to increase aerobic PA to prepare for major bariatric abdominal surgery. LONG-TERM GOALS: Discussed with . Due in 12 weeks. Aerobic PA 30 minutes per day, all days(may be three 10 minute or two 15 minute bouts) Performing strengthening exercises 3x/wk. Independent with home exercise program. See topics above to identify problem areas and goals Critical behavior/Cognitive Status: Affect : appropriate Learning Barriers: none. Social issues that might affect completion of set goals and treatment plan medical conditi ons Patient's knowledge of disease process: Good . Personal factors/Comorbidities; High 3+ Justification: HTN, high cholesterol, obesity, Di abetes Body structures & functions, Activity limitations, participation restrictions: Moderate - 3 or more Justification: poor functional strength, low endurance, HTN Stability of condition: Moderate - Evolving Decline of condition Clinical decision making: Moderate - Moderate complexity: Moderate level of skill to determ ine plan of care and implement changes accordingly Complexity: Moderate - 87323 The patient requires services that can be safely and effectively performed only by a qualif ied therapist to address the aforementioned and highlighted problems and goals. Goals discussed and agreed upon with patient and/or family. Individual cultural and social needs addressed. Rehab Potential: Good, if Mynor carries through with home exercise program. This note is to serve as the discharge summary if the patient fails to attend further Physi adelfo Therapy appointments or contact the therapist regarding any change in their status. Maryuri Stuart, PT [facility] 1ST FLOOR Scheduled Appointment time: 3:30 PM Treatment began: 1520 Treatment ended: 1605 Patient was seen for a total of 50 minutes of treatment time. 50 minutes was in direct cont act care as described above and on completed flow sheets. Treatment Interventions duration in minutes: Procedure:Physical Therapy Evaluation and Ther apeutic Exercise 15 min PLAN OF CARE (Established 06/23/2017 to be updated every 30 days): Treatment Plan Summary:PLAN OF CARE: Aerobic PA Strengthening exercises Stretching exercises Frequency: 1 Duration: 1 Total number of visits: 1 Referral information Authorizing Provider: JAVAN CORTES [[id number]] Onset/Referral Date: 06/15/17 Primary/Referral Diagnosis: E66.01 Morbid obesity, unspecified obesity type Start of care: 06/23/2017 Service period from: 06/23/2017 to: - Next progress report 07/23/2017 - code not needed. Number visits authorized: 1 Number visits used: 1 Outcome Measure 06/23/2017 Activity 1 (3 point increase is significant for any one activity): 0 (run 5 k) Activity 2: 4 (walking stairs pain free and without losing breath) Activity 3: 2 (kneel or stretch without cramping) Activity 4: 0 Activity 5: 0 Patient Specific Functional Scale Total Score: 6 documented in this enc ounter Plan of Treatment +--------+ + + + + | Date | Type | Specialty | Care Team | Description | +--------+ + + + + | 12/15/ | Office | Pre-operative | 2 [facility] Md Marquita FUNEZ | | | 2019 | Visit | Medicine | [address] | | | | | | [place] [address] | | +--------+ + + + + [...] [address] | | | | | | [place], [place] | | | | | | [address] | | | | | | [phone] | | | | | | | | +--------+ + + + + documented as of this encounter Procedures + +--------+ + + + | Procedure Name | Priori | Date/Time | Associated Diagnosis | Comments | | | ty | | | | + +--------+ + + + | MN THERAPEUTIC | Routin | 06/23/2017 | Morbid obesity, | | | EXERCISES | e | 6:21 PM | unspecified obesity | | | | | PDT | type (HCC) | | + +--------+ + + + documented in this encounter Visit Diagnoses + + | Diagnosis | + + | Morbid obesity, unspecified obesity type (HCC) - Primary | + + documented in this encounter"
--- OUTSIDE RECORDS SUMMARY | ~2019-10-18 | XMS | Encounter Summary ---
Demographics + + + | Address | [address] | | | [place] [address] | + + + | Home Phone | | + + + | Preferred Language | Unknown | + + + | Marital Status | | + + + | Amish Affiliation | NRP | + + + [...] [place] | | | | | [address] | | + + + + + Care Team Providers + +------+ + | Care Sugarcane Planter Name | Role | Phone | + [...] | [facility] [address] | MD [address] | | | | | [address] | [place], [place] | | | | | Mailcode: Center | [address] | | | | | for Health and | [phone] | | | | | [facility] [address] | | | | | | [place], [place] | | | | | | [address] | | | | | | | [...] 12/15/ | Office | Pre-operative | 2, [facility] [address] | | | 2020 | Visit | Medicine | [address] | | | | | | [place] [address] | | +--------+ + + + + [...] [place] | | | | | | [address] | | | | | | [phone] | | | | | | | | +--------+ + + + + documented as of this encounter Visit Diagnoses Not on filedocumented in this encounter"
--- OUTSIDE RECORDS SUMMARY | ~2019-10-18 | XMS | Encounter Summary ---
Demographics + + + | Address | [address] | | | [place] [address] | + + + | Home Phone [...] [place] | | | | | [address] | | + + + + + Care Team Providers + +------+ + | Care Dynamite Packing Machine Feeder Name | Role | Phone | + +------+ + | Hemalatha Lawrence PA-C | PCP | | + +------+ + Encounter Details +--------+ + + + + | Date | Type | Department | Care Team | Description | +--------+ + + + + | 04/06/ | MyChart | Digestive Health | Arvin Altamirano, | edg | | 2018 | Encounter | [facility] [address] | MD [address] | | | | | [address] | [place], [place] | | | | | Mailcode: Center | [address] | | | | | for Health and | [phone] | | | | | Healing, Building [address] | | | | | | [place], [place] | | | | | | [address] | | | | | | [phone] | | | +--------+ + + + [...] 12/15/ | Office | Pre-operative | 2, [facility] [address] | | | 2020 | Visit | Medicine | [address] | | | | | | [place] [address] | | +--------+ + + + + [...] [place] | | | | | | [address] | | | | | | [phone] | | | | | | | | +--------+ + + + + documented as of this encounter Visit Diagnoses Not on filedocumented in this encounter"
--- OUTSIDE RECORDS SUMMARY | ~2019-10-18 | XMS | Encounter Summary ---
Demographics + + + | Address | [address] | | | [place] [address] | + + + | Home Phone [...] [place] | | | | | [address] | | + + + + + Care Team Providers + +------+ + | Care Chiropractic Care Name | Role | Phone | + +------+ + PCP | Unavailable | + +------+ + Encounter Details +--------+ + + + + | Date | Type | Department | Care Team | Description | +--------+ + + + + | 02/18/ | ED Progress | [facility] | Report, Emergency | ED Progress Note | | 2006 | | MEDICINE | Services | | | | Note-Transc | | | | | | ribed | | | | +--------+ + + [...] [facility] [place] [address] | | | 2019 | Visit | Medicine | [address] | | | | | | [place] [address] | | +--------+ + + + + [...] [address] | | | | | | [place], [place] | | | | | | [address] | | | | | | [phone] | | | | | | | | +--------+ + + + + documented as of this encounter Visit Diagnoses Not on filedocumented in this encounter"
--- OUTSIDE RECORDS SUMMARY | ~2019-10-18 | XMS | Encounter Summary ---
Demographics + + + | Address | [address] | | | [place] [address] | + + + | Home Phone [...] [place] | | | | | [address] | | + + + + + Care Team Providers + +------+ + | Care Rn Recovery Name | Role | Phone | + [...] | | | | | | | [facility] | | | | | | | Health and | | | | | | | Healing, | | | | | | | Building 2 | | | | | | | [place], [place] | | | | | | | [address] | | | | | | | Phone: | | | | | | | [phone] | | | | | | | Fax: | | | | | | | [phone] | +--------+--------+ + + + + Encounter Details +--------+---------+ + + + | Date | Type | Department | Care Team | Description | +--------+---------+ + + + | 02/25/ | Office | Digestive Health | Key Castellano, | S/P gastric bypass | | 2018 | Visit | [facility] [address] | [address] | (Primary Dx); | | | | ARIMN Barrios | [address] | Insulin dependent | | | | Mailcode: Center | [place], [place] | diabetes mellitus | | | | for Health and | [address] | ([facility]) | | | | Healing, [facility] 2 | | | | | | [place], [place] | | | | | | [address] | | | | | | [phone] | | | +--------+---------+ + + + [...] documented as of this encounter Progress Notes Key Castellano RD - 02/25/2018 1:00 PM PDTFormatting of this note might be different fro m the original. Nutrition Counseling: Post-op Bariatric Surgery Follow-Up Patient referred by: No Referring Provider Per Patient NO REFERRING PROVIDER PER PT Documented time of visit: 1:03 to 1:18 (15 minutes watu-ra-[id number] with patient) Surgery: Gastric Bypass Date of Surgery: 01/17/18 Subjective: trying to figure out what to eat. Any reported changes: none Tolerating Bariatric Diet: Yes Current Physical Activity: walking. Going to take a look at gyms with next Wednesday. Off all insulin, taking Metforimin 500 daily Testing blood glucose: FBG ~145-185, CBG >200 Objective: Ht Readings from Last 1 Encounters: 02/25/18 1.88 m (6' 2") Wt Readings from Last 2 Encounters: 02/25/18 130.4 kg (287 lb 6.4 oz) 01/25/18 137 kg (302 lb) 01/18/18 149.3 kg (329 lb 2.4 oz) BMI: 36.9 Weight change since surgery: lost 42 lbs PMHx: Past Medical History: Diagnosis Date Anxiety Depression HBP (high blood pressure) Headache High cholesterol Numbness and tingling JOSE on CPAP Thyroid activity decreased Type 2 diabetes mellitus (HCC) Food logs: No Food choices: Protein shakes, cream of chicken or broth soup, refried beans, low fat chili, cayman islander yogurt, has tried tuna and salmon pouches but make stomach hurt. 0 Fluid choices: water, Isopure, crystal light Supplementation: barimelts MVI, Vitamin D, sublingual B12, vitafusion calcium-2 per day. Assessment: Following Bariatric Diet Protocol: Yes Meeting protein goals: Yes Meeting fluid goals: Yes Fluids from meals: Yes Plan: Increase calcium to 4163-2617 mg per day Reviewed nutrition goals after bariatric surgery. Aim for 64 ounces of fluid and 60-80 grams of protein per day. Continue to follow post-surgery bariatric diet progression: Continue stage 3 according to b ariatric diet guidelines -Provided written & verbal education/review on stage [...] multivitamin & mineral (with iron) supplement, 2/day -6988-8087 mg calcium citrate with vitamin D/day (take in divided doses, not within 2 hour s of multivitamin or iron supplement) -500 mcg/day sublingual B12 supplement (or monthly injections) Continued to reinforce importance of mindful eating. Continue to increase physical activity. Follow up in [address],[place] Pager# [phone] Phone: [phone] documented in this en counter Plan of Treatment +--------+ + + + + | Date | Type | Specialty | Care Team | Description | +--------+ + + + + | 12/15/ | Office | Pre-operative | 2, [facility] Md Marquita FUNEZ | | | 2019 | Visit | Medicine | [address] | | | | | | [place] [address] | | +--------+ + + + + | 01/04/ | Procedure | Surgery | | | | 2019 | Pass | | | | +--------+ + + + + | 01/25/ | Office | Otolaryngology | Santos Valdivia, | | | 2019 | Visit | | MD Marquita Penn | | | | | | [address] | | | | | | [place], [place] | | | | | | [address] | | | | | | [phone] | | | | | | | | +--------+ + + + + documented as of this encounter Procedures + +--------+ + + + | Procedure Name | Priori | Date/Time | Associated Diagnosis | Comments | | | ty | | | | + +--------+ + + + | ME MNT RE-ASSESSMNT | Routin | 02/25/2018 | S/P gastric bypass | | | X15MIN | e | 1:35 PM | Insulin dependent | | | | | PDT | diabetes mellitus | | | | | | ([facility]) | | + +--------+ + + + [...]
--- OUTSIDE RECORDS SUMMARY | ~2019-10-18 | XMS | Encounter Summary ---
Demographics + + + | Address | [address] | | | [place] [address] | + + + | Home Phone [...] [place] | | | | | [address] | | + + + + + Care Team Providers + +------+ + | Care Funeral Counselor Name | Role | Phone | + [...] | | | Ave Mailcode: [facility] | [place], [place] | | | | | [facility] | [address] | | | | | and Healing, | [phone] | | | | | [facility] | | | | | | Floor [facility] [place] | | | | | | [address] | | | | | | [phone] | | | +--------+ + + + [...] 12/15/ | Office | Pre-operative | 2 [facility] [address] | | | 2019 | Visit | Medicine | [address] | | | | | | [place] [address] | | +--------+ + + + + [...] Rd | | | | | | [place], [place] | | | | | | [address] | | | | | | [phone] | | | | | | | | +--------+ + + + + documented as of this encounter Visit Diagnoses Not on filedocumented in this encounter"
--- OUTSIDE RECORDS SUMMARY | ~2019-10-18 | XMS | Encounter Summary ---
Demographics + + + | Address | [address] | | | [place] [address] | + + + | Home Phone | | + + + | Preferred Language | Unknown | + + + | Marital Status | | + + + | Sabianist Affiliation | NRP | + + + [...] [place] | | | | | [address] | | + + + + + Care Team Providers + +------+ + | Care Dross Skimmer Name | Role | Phone | + +------+ + | Rian Sancehz MD | PCP | | + +------+ + Encounter Details +--------+ + + + + | Date | Type | Department | Care Team | Description | +--------+ + + + + | 05/05/ | Abstract | Digestive Health | Clinic, Surgery | | | 2017 | | [place] [facility] [address] | | | | | | Trey [address]rios | | | | | | Mailcode: Center | | | | | | for Health and | | | | | | Healing, Building [address] | | | | | | [place], [place] | | | | | | [address] | | | | | | [phone] | | | +--------+ + + + [...] Office | Pre-operative | 2, Andrés Chambers [address] | | | 2020 | Visit | Medicine | [address] | | | | | | [place] [address] | | +--------+ + + + + [...] Rd | | | | | | [place], [place] | | | | | | [address] | | | | | | [phone] | | | | | | | | +--------+ + + + + documented as of this encounter Visit Diagnoses Not on filedocumented in this encounter"
--- OUTSIDE RECORDS SUMMARY | ~2019-10-18 | XMS | Encounter Summary ---
Demographics + + + | Address | [address] | | | [place] [address] | + + + | Home Phone [...] [place] | | | | | [address] | | + + + + + Care Team Providers + +------+ + | Care Frame Repairer Name | Role | Phone | + +------+ + | Hemalatha Lawrence PA-C | PCP | | + +------+ + Reason for Visit +---------+ + | Reason | Comments | +---------+ + | Post Op | | +---------+ + Encounter Details +--------+---------+ + + + | Date | Type | Department | Care Team | Description | +--------+---------+ + + + | 03/20/ | Office | Digestive Health | SeramagdiKaylee canales, | Morbid obesity with | | 2017 | Visit | Center at [facility] [address] | [facility] [address] | BMI of 40.0-44.9, | | | | [address] | Ave [place], [place] | adult (HCC) (Primary | | | | Mailcode: Center | [address] | Dx); Essential | | | | for Health and | | hypertension; JOSE on | | | | Healing, [address] | | CPAP; Insulin | | | | [place], [place] | | dependent diabetes | | | | [address] | | mellitus (HCC); | | | | | | Other | | | | | | hyperlipidemia; | | | | | | Acute post-operative | | | | | | pain | +--------+---------+ + + + Social History [...] + + + | Blood Pressure | 140/80 | 01/25/2018 10:19 AM | | | | | PDT | | + + + + + | Pulse | 76 | 01/25/2018 10:19 AM | | | | | PDT | | + + + + + | Temperature | 37.2 C (99 F) | 01/25/2018 10:19 AM | | | | | PDT | | + + + + + | Respiratory Rate | 16 | 01/25/2018 10:19 AM | | | | | PDT | | + + + + + | Oxygen Saturation | - | - | | + + + + + | Inhaled Oxygen | - | - | | | Concentration | | | | + + + + + | Weight | 137 kg (302 lb) | 01/25/2018 10:19 AM | | | | | PDT | | + + + + + | Height | 188 cm (6' 2") | 01/25/2018 10:19 AM | | | | | PDT | | + + + + + | Body Mass Index | 38.77 | 01/25/2018 10:19 AM | | | | | PDT [...] of this encounter Patient Instructions Patient Instructions WelKaylee hill AGACNP - 01/25/2018 10:20 AM PDT-Download Baritastic --track your food and fluid intake on this kian daily. -Call your division manager this week to get an appointment regarding your diabetes medicati ons. -continue with fluid goal of 64oz and protein goal of 60-80gm -wean off the narcotics DONNIE, these can cause constipation -WALK WALK WALK -Start vitamins today -Start the ursodiol (gallbladder pill) Start next WednesdayJanuary 31 -start taking miralax 2-3x daily until you have a bowel movement. Constipation: *Increase fluids to 64-70 oz per day. *Add a fiber supplement daily such as fibercon, benefiber, citracel, metamucil, etc. Be osiel e to take water with these and work up to the doses recommended on the container over 2-4 wk s. *Colace stool softeners twice daily. *dulcolax twice daily *Milk of magnesia or Miralax twice daily. *suppositories- follow directions on the box *enemas For termite exterminator issues, we recommend the use of MiraLax only. It has the least nursing home Effects on the colon You can use it as often as 3-4 times a day documented in this encounter Progress Notes Kaylee Purcell AGACNP - 01/25/2018 10:20 AM PDTFormatting of this note might be differen t from the original. BARIATRIC SURGERY FOLLOW-UP ID: Mynor Valdez is a 47 y.o. patient who underwent a Brynn en y gastric bypass on 2017 with . The patient is now 1 week post operative and recovering well. Subjective: Last office visit reviewed. Op-report reviewed. Labs reviewed. Pain is improving, just sore in the right side. Taking one or two oxy daily. Getting about 50 oz fluid daily but not cur rently journaling intake. Getting adequate protein but not currently tracking. Hasn't had an y bowel movements, since surgery. Tried taking miralax but stopped. Denies cramping or bloat ing. Patient is passing lots of gas. Doing walking around the house, went out this weekend t o [employer]. Denies N/V/D Weight at time of surgery : 313--> 302 (total 11 lb weight loss) BP 140/80 | Pulse 76 | Temp (Src) 37.2 C (99 F) (Oral) | RR 16 | Ht 1.88 m (6' 2") | Wt 137 kg (302 lb) | BMI 38.77 kg/(m^2) History: Past Medical History: Diagnosis Date Anxiety Depression HBP (high blood pressure) Headache High cholesterol Numbness and tingling JOSE on CPAP Thyroid activity decreased Type 2 diabetes mellitus (HCC) Past Surgical History Procedure Laterality Date Ankle fracture surgery 2001 Hand surgery Left 2006 Sinus surgery 2006 Sinus surgery 2013 Allergies Allergies Allergen Reactions Actos [Pioglitazone Hcl] Headache Cephalexin Hcl Unknown Metformin Diarrhea Medications Current Outpatient Prescriptions: acetaminophen 325 mg oral tablet, Take 2 tablets by mouth every four hours as needed (mild/multimodal pain)., Disp: , Rfl: atorvastatin 10 mg oral tablet, Take 1 tablet by mouth once daily., Disp: 30 tablet, Rfl: 5 buPROPion 75 mg oral tablet, Take 2 tablets by mouth two times daily., Disp: 120 tablet, Rf l: 0 Cholecalciferol (Vitamin D3) 2,000 unit oral [...] s via mouth., Disp: , Rfl: iron gly,[id number] 150 mg iron-200 mg-250 mcg oral tablet, Take 5,000 mcg by mo uth once daily., Disp: , Rfl: LEVOMEFOLATE CALCIUM (L-METHYLFOLATE ORAL), Take 15 mcg by mouth once daily., Disp: , Rfl: levothyroxine 200 mcg oral tablet, Take 200 mcg by mouth once daily. 6 days a week per pt., Disp: , Rfl: lisinopril 5 mg oral tablet, Take 1 tablet by mouth once daily, Disp: 30 tablet, Rfl: 6 metFORMIN SR 500 mg oral tablet extended release 24 hr, Take 1 tablet by mouth once daily. Administer with evening meal., Disp: 30 tablet, Rfl: 0 metoprolol tartrate 100 mg oral tablet, Take 1 tablet by mouth two times daily., Disp: 60 t ablet, Rfl: 0 omeprazole 20 mg oral capsule,delayed release(DR/EC), Take 1 capsule by mouth once daily. O pen capsule and mix granules with a small amount of sugar-free pudding or yogurt, swallow im mediately (do not chew) with a glass of water., Disp: 90 capsule, Rfl: 0 ondansetron ODT 4 mg oral tablet,disintegrating, Dissolve 1 tablet on tongue and swallow ev arlene six hours as needed for nausea/vomiting., Disp: 30 tablet, Rfl: 0 oxyCODONE (immediate release) 5 mg oral tablet, Take 1 to 3 tablets by mouth every four toya rs as needed for moderate or severe pain., Disp: 60 tablet, Rfl: 0 polyethylene glycol (MIRALAX) 17 gram/dose oral powder, Mix 17 g in liquid and drink once d aily., Disp: 119 g, Rfl: 2 polyethylene glycol 17 gram oral powder in packet, Mix 1 packet and take orally once daily as needed (constipation)., Disp: 14 packet, Rfl: 1 senna (SENNA) 8.6 mg oral tablet, Take 1 tablet by mouth once daily., Disp: 15 tablet, Rfl: 0 simethicone chew 80 mg oral tablet,chewable, Chew and swallow 1 tablet three times daily as needed for bloating (gas pain)., Disp: 30 tablet, Rfl: 0 [START ON 02/01/2018] ursodiol 250 mg oral tablet, Take 1 tablet by mouth two times daily. S tart taking this 2 weeks after surgery, Disp: 60 tablet, Rfl: 5 Bariatric Medications: MVI with iron twice daily: no, will start taking today Calcium citrate 1500mg daily: no, will start taking today Vitamin D 1000 mg daily : no, will start taking today B12 500mcg SL daily or monthly shot: no, will start taking today H2RB/PPI daily: yes Actigall/ ursodiol 300 BID: No, will start this next wednesday Narcotics: yes Symptoms: Nausea: <1 time per week Dysphagia: None Vomiting: None Heartburn: None Abd Pain: <1 time per week Constipation: 2-5 times per week Diarrhea: None Physical Exam General- Alert and oriented x4, WD, WN, NAD, well appearing Well hydrated: moist mucous membranes Abd - Soft, non-tender, non-distended, incisions well healing, no erythema or drainage note d Assessment/Plan: Mynor Valdez is a 47 y.o. male who is 1 week S/P Brynn en y gastric bypass. 1. S/p Brynn en y gastric bypass recovering well. -Denies nausea, vomiting, diarrhea -hasn't had a bowel movement since surgery. Bowel sounds present in all 4 quadrants. Patient instructed to begin taking miralax twice daily up to 4 times daily until he has a B M. Ordered to his home pharmacy. Patient is not feeling constipated or feeling crampy at all . Encouraged him to still take these medications. -Also ordered Senna if patient continues to not have a BM the next few days. He was instruc indra to call the clinic if he doesn't have a BM in 2-3 days.. -encouraged him to increase fluid goal to 64-70oz -Pt also advised to wean off narcotics DONNIE and counseled that these can cause constipation . -encouraged to increase daily activity and light exercise such as walking, treadmill/ellipt ical/stationary bike. Still no heavy lifting until one month visit. -continue with protein goal of 60-80g/day -continue with fluid intake goal of at least 64oz/day -Discussed diet choices, healthy foods, ways to increase protein and iron -Discussed daily exercise and types of exercises -Pt encouraged to begin tracking daily intake of food/fluids through baritastic so he has a better idea of how much fluid/protein he is getting daily. 2. Intertriginous candidiasis -use corn starch to help reduce moisture -incisions look good but patient was perspiring causing moisture on his abdomen. Encourage patient to keep incisions as dry as possible, carry a towel around to reduce friction/promot e drying, etc. -contact us if you have further problems 3. Risk for B12 deficiency, calcium malabsorption, protein malabsorption, vitamin d deficii encs and iron deficiencies -continue with vitamin supplements as directed -will check labs at 6 month post op visit -begin taking all vitamin supplements today 4.Gastric Ulcer Prevention -Take acid electronics research engineer (omeprazole) for first 3 mos, then wean off over 2 wks. This is to prev ent ulcers. Take this medication even if you have NO symptoms. 5. Gallstone Prevention -Use ursodiol ( Actigall) for first 6 months after surgery, it prevents gallstones. -Begin taking this medication next Wednesday 01/31 6. Diabetes -patient had several medication adjustments in the hospital. He is currently just on metfor min. Blood sugars have ranged between 150-180. He has had no issues with hypoglycemia. -He has not reached out to his division manager yet. Pt instructed to do so DONNIE, explained how metabolic changes can happen rapidly after surgery and it is very important for his endo crinologist to be following him as he may need more medication changes. The pt understood th is. Is patient taking meds according to discharge instructions "probably not" Does the patient feel medication instructions were clear at discharge yes Given an abdominal binder during hospital stay? yes Return to bariatric clinic for 1 month post op visit. See your primary care provider for adjusting any other medications. Call if any abdominal pain, n/v/d or other issues. Pt agrees to plan and will call and/or send [employer] message if any issues. Start time 1020, end time 1050. I spent a total of 30 minutes face to face with this patie nt. Over 50% of visit was in counseling. Kaylee GARRISON Bariatric Surgery Nurse Practitioner [facility] | [address] | [place], [place] | [address] | documented in th is encounter Plan of Treatment +--------+ + + + + | Date | Type | Specialty | Care Team | Description | +--------+ + + + + | 12/15/ | Office | Pre-operative | [facility] [address] | | | 2019 | Visit | Medicine | [address] | | | | | | [place] [address] | | +--------+ + + + + [...] [address] | | | | | | [place], [place] | | | | | | [address] | | | | | | [phone] | | | | | | | | +--------+ + + + + documented as of this encounter Visit Diagnoses + + | Diagnosis | + + | Morbid obesity with BMI of 40.0-44.9, adult (HCC) - Primary | + + | Essential hypertension | + + | JOSE on CPAP Obstructive sleep apnea (adult) (pediatric) | + + | Insulin dependent diabetes mellitus ([facility]) Type II or unspecified type diabetes | | mellitus without mention of complication, not stated as uncontrolled | + + | Other hyperlipidemia | + + | Acute post-operative pain | + + documented in this encounter
--- OUTSIDE RECORDS SUMMARY | ~2019-10-18 | XMS | Encounter Summary ---
Demographics + + + | Address | [address] | | | [place] [address] | + + + | Home Phone [...] [place] | | | | | [address] | | + + + + + Care Team Providers + +------+ + | Care Receivable Executive Name | Role | Phone | + [...] [id number] | | | | | | [place] [address]wan | | | | | | [address], [place] | | | | | | [address] | | | | | | [phone] | | | +--------+ + + + [...] [facility] [address] | | | 2019 | Visit | Medicine | [address] | | | | | | [place] [address] | | +--------+ + + + + | 01/04/ | Procedure | Surgery | | | | 2019 | Pass | | | | +--------+ + + + + | 01/25/ | Office | Otolaryngology | Santos Valdivia, | | | 2019 | Visit | | [address] | | | | | | [address] | | | | | | [place], [place] | | | | | | [address] | | | | | | [phone] | | | | | | | | +--------+ + + + + documented as of this encounter Visit Diagnoses Not on filedocumented in this encounter"
--- OUTSIDE RECORDS SUMMARY | ~2019-10-18 | XMS | Encounter Summary ---
Demographics + + + | Address | [address] | | | [place] [address] | + + + | Home Phone | | + + + | Preferred Language | Unknown | + + + | Marital Status | | + + + | Islam Affiliation | NRP | + + + [...] [place] | | | | | [address] | | + + + + + Care Team Providers + +------+ + | Care Assistant Superintendent Name | Role | Phone | + +------+ + | Hemalatha Lawrence PA-C | PCP | | + +------+ + Encounter Details +--------+--------+ + + + | Date | Type | Department | Care Team | Description | +--------+--------+ + + + | 08/18/ | Travel | | | | | 2019 | | | | | +--------+--------+ + + + Social History + +-------+ [...] Rd | | | | | | [place] [address] | | +--------+ + + + + [...] Rd | | | | | | [place], [place] | | | | | | [address] | | | | | | [phone] | | | | | | | | +--------+ + + + + documented as of this encounter Visit Diagnoses Not on filedocumented in this encounter"
--- OUTSIDE RECORDS SUMMARY | ~2019-10-18 | XMS | Encounter Summary ---
Demographics + + + | Address | [address] [facility] | | | [place] [address] | + + + | Home Phone | | + + + | Preferred Language | Unknown | + + + | Marital Status | | + + + | Jewish Affiliation | NRP | + + + | Race | White | + + + | Ethnic Group | Not or | + + + Author + + + | Author | [facility] | + + + | Organization | [facility] | + + + | Address | Unknown | + + + | Phone | Unavailable | + + + Support + + + + + | Name | Relationship | Address | Phone | + + + + + | Pooja Valdez | ECON | [address] | | | | | [place] | | | | | [address] | | + + + + + Care Team Providers + +------+ + | Care Technology Lab Teacher Name | Role | Phone | + +------+ + | Hemalatha Lawrence PA-C | PCP | | + +------+ + Encounter Details +--------+------+ + + + | Date | Type | Department | Care Team | Description | +--------+------+ + + + | 08/31/ | Lab | Laboratory at [facility] | | S/P gastric bypass; | | 2017 | | [address] | | Essential | | | | [place], [place] | | hypertension; | | | | [address] | | Impaired intestinal | | | | [phone] | | absorption | +--------+------+ + + + Social History [...] [address] | | | | | | [place] [address] | | +--------+ + + + + [...] [address] | | | | | | [place], [place] | | | | | | [address] | | | | | | [phone] | | | | | | | | +--------+ + + + + documented as of this encounter Procedures + +--------+ + + + | Procedure Name | Priori | Date/Time | Associated Diagnosis | Comments | | | ty | | | | + +--------+ + + + | CBC (HEMOGRAM) ONLY | Routin | 08/31/2018 | S/P gastric bypass | Results for this | | | e | 4:17 PM | Essential | procedure are in the | | | | PDT | hypertension | results section. | | | | | Impaired intestinal | | | | | | absorption | | + +--------+ + + + | VITAMIN B1, WHOLE | Routin | 08/31/2018 | S/P gastric bypass | Results for this | | BLOOD | e | 4:17 PM | Essential | procedure are in the | | | | PDT | hypertension | results section. | | | | | Impaired intestinal | | | | | | absorption | | + +--------+ + + + | VITAMIN D, | Routin | 08/31/2018 | S/P gastric bypass | Results for this | | 25-HYDROXY, SERUM | e | 4:17 PM | Essential | procedure are in the | | | | PDT | hypertension | results section. | | | | | Impaired intestinal | | | | | | absorption | | + +--------+ + + + | COMPLETE METABOLIC | Routin | 08/31/2018 | S/P gastric bypass | Results for this | | SET | e | 4:17 PM | Essential | procedure are in the | | (NA,K,CL,CO2,BUN,CRE | | PDT | hypertension | results section. | | AT,GLUC,CA,AST,ALT,B | | | Impaired intestinal | | | KARTHIK TOTAL,ALK | | | absorption | | | PHOS,ALB,PROT TOTAL) | | | | | + +--------+ + + + | CBC ONLY | Routin | 08/31/2018 | S/P gastric bypass | Results for this | | | e | 4:17 PM | Essential | procedure are in the | | | | PDT | hypertension | results section. | | | | | Impaired intestinal | | | | | | absorption | | + +--------+ + + + | FERRITIN | Routin | 08/31/2018 | S/P gastric bypass | Results for this | | | e | 4:17 PM | Essential | procedure are in the | | | | PDT | hypertension | results section. | | | | | Impaired intestinal | | | | | | absorption | | + +--------+ + + + | PTH, SERUM | Routin | 08/31/2018 | S/P gastric bypass | Results for this | | | e | 4:17 PM | Essential | procedure are in the | | | | PDT | hypertension | results section. | | | | | Impaired intestinal | | | | | | absorption | | + +--------+ + + + | LIPID SET (TRIG, T | Routin | 08/31/2018 | S/P gastric bypass | Results for this | | CHOL, HDL, CALC LDL) | e | 4:17 PM | Essential | procedure are in the | | | | PDT | hypertension | results section. | | | | | Impaired intestinal | | | | | | absorption | | + +--------+ + + + | VITAMIN B-12 | Routin | 08/31/2018 | S/P gastric bypass | Results for this | | | e | 4:17 PM | Essential | procedure are in the | | | | PDT | hypertension | results section. | | | | | Impaired intestinal | | | | | | absorption | | + +--------+ + + + | HEMOGLOBIN A1C, | Routin | 08/31/2018 | S/P gastric bypass | Results for this | | BLOOD | e | 4:17 PM | Essential | procedure are in the | | | | PDT | hypertension | results section. | | | | | Impaired intestinal | | | | | | absorption | | + +--------+ + + + | IRON AND TIBC, SERUM | Routin | 08/31/2018 | S/P gastric bypass | Results for this | | | e | 4:17 PM | Essential | procedure are in the | | | | PDT | hypertension | results section. | | | | | Impaired intestinal | | | | | | absorption | | + +--------+ + + + documented in this encounter Results CBC (HEMOGRAM) ONLY (08/31/2018 4:17 PM PDT) + +-------+ + + + | Component | Value | Ref Range | Performed | Pathologist | | | | | At | Signature | + +-------+ + + + | WHITE CELL | 9.72 | 3.50 - 10.80 | [facility] | | | COUNT | | K/cu mm | LABORATORY | | | | | | SERVICES, | | | | | | CORE | | + +-------+ + + + | RED CELL | 4.96 | 4.50 - 6.00 | [facility] | | | COUNT | | M/cu mm | LABORATORY | | | | | | SERVICES, | | | | | | CORE | | + +-------+ + + + | HEMOGLOBIN | 15.6 | 13.5 - 17.5 | [facility] | | | | | g/dL | LABORATORY | | | | | | SERVICES, | | | | | | CORE | | + +-------+ + + + | HEMATOCRIT | 46.0 | 41.0 - 53.0 % | [facility] | | | | | | LABORATORY | | | | | | SERVICES, | | | | | | CORE | | + +-------+ + + + | MCV | 92.7 | 80.0 - 100.0 fL | [facility] | | | | | | LABORATORY | | | | | | SERVICES, | | | | | | CORE | | + +-------+ + + + | MCHC | 33.9 | 32.0 - 36.0 | [facility] | | | | | g/dL | LABORATORY | | | | | | SERVICES, | | | | | | CORE | | + +-------+ + + + | RDW SD | 43.8 | 35.1 - 46.3 fL | [facility] | | | | | | LABORATORY | | | | | | SERVICES, | | | | | | CORE | | + +-------+ + + + | PLATELET | 244 | 150 - 400 K/cu | [facility] | | | COUNT | | mm | LABORATORY | | | | | | SERVICES, | | | | | | CORE | | + +-------+ + + + | MPV | 10.1 | 9.7 - 12.3 fL | [facility] | | | | | | LABORATORY | | | | | | SERVICES, | | | | | | CORE | | + +-------+ + + + | NRBC% | 0.0 | 0.0 - 0.3 % | [facility] | | | | | | LABORATORY | | | | | | SERVICES, | | | | | | CORE | | + +-------+ + + + | NRBC# | 0.00 [...] [facility] | [address] | [place] [address] | | | SERVICES, CORE | SHANA [...] + + + + + | [facility] [employer] | [address] | [place] [address] | | | SERVICES, CORE | SHANA [...] | [facility] | | considered for monitoring manager terminal glycemic control in patients with: | LABORATORY [...] [facility] | [address] | [place] [address] | | | SERVICES, SPECIAL | SHANA [...] | | | | | determined by [employer] | | | | | | Laboratories. See | | | | | | Compliance Statement B: | | | | | | Paxer/CSPerformed | | | | | | by [employer],[address] | | | | | | [address], [facility] | | | | | | [address] | | | | | | [phone].Orteq. | | | | | | Laurent [...] | + + + + + | [facility] | [address] | [place], [place] | | | [facility] | | [address] | | + + + + + [...] | | | LABORATORY | | | [facility] | | | SERVICES, | | | [...] the MDRD equation recommended by the | [facility] | | National Kidney Disease Education Program. [...] + + + + + | [facility] | [address] | [place] [address] | | | FILI, CORE | [address] | | | [...] + + + + + | [facility] | [address] | [place] [address] | | | SERVICES, CORE | PARK [...] + + + + + | [facility] | [address] | [place] [address] | | | SERVICES, CORE | PARK [...] + + + + | [facility] | [address] | [place] [address] | | | SERVICES, CORE | SHANA [...] + + | New Reference Range effective 12--17. | [facility] | | | LABORATORY | | | SERVICES, CORE | + + + + + + + + | Performing | Address | City/State/Zipcode | Phone Number | | Organization | | | | + + + + + | [facility] | [address] | [place] [address] | | | SERVICES, CORE | PARK [...] | + + + + + | [facility] | [address] | [place] [address] | | | SERVICES, CORE | SHANA [...]
--- OUTSIDE RECORDS SUMMARY | ~2019-10-18 | XMS | Encounter Summary ---
Demographics + + + | Address | [address] | | | [place] [address] | + + + | Home Phone [...] [place] | | | | | [address] | | + + + + + Care Team Providers + +------+ + | Care Science Professor Name | Role | Phone | + [...] | | 2018 | | Center at [facility] [address] | | (bariatric followup | | | | [address] | | ) | | | | Mailcode: [place] | | | | | | [facility] and | | | | | | [facility] [address] | | | | | | [place], [place] | | | | | | [address] | | | | | | [phone] | | | +--------+ + + + [...] | | | | | [place] [address] | | +--------+ + + + + [...] [place] | | | | | | [address] | | | | | | [phone] | | | | | | | | +--------+ + + + + documented as of this encounter Visit Diagnoses Not on filedocumented in this encounter"
--- OUTSIDE RECORDS SUMMARY | ~2019-10-18 | XMS | Encounter Summary ---
Demographics + + + | Address | [address] | | | [place] [address] | + + + | Home Phone | | + + + | Preferred Language | Unknown | + + + | Marital Status | | + + + | Religion Affiliation | NRP | + + + | Race | White | + + + | Ethnic Group | Not or | + + + Author + + + | Author | [facility] | + + + | Organization | [facility] | + + + | Address | Unknown | + + + | Phone | Unavailable | + + + Support + + + + + | Name | Relationship | Address | Phone | + + + + + | Pooja Valdez | ECON | [address] | | | | | [place] | | | | | [address] | | + + + + + Care Team Providers + +------+ + | Care Family Law Paralegal Name | Role | Phone | + +------+ + | Hemalatha Lawrence PA-C | PCP | | + +------+ + Encounter Details +--------+ + + + + | Date | Type | Department | Care Team | Description | +--------+ + + + + | 08/21/ | Telephone | Otolaryngology | Santos Valdivia, | | | 2019 | | Otology Services at | MD [address] | | | | | [address] | | | | | [address] | [place], [place] | | | | | Mailcode: PV01 | [address] | | | | | [facility] | [phone] | | | | | [place], [place] | | | | | | [address] | | | | | | [phone] | | | +--------+ + + + [...] | 2, [facility] [address] | | | 2020 | Visit | Medicine | [address] | | | | | | [place] [address] | | +--------+ + + + + [...] Rd | | | | | | [place] | | | | | | [address] | | | | | | [phone] | | | | | | | | +--------+ + + + + documented as of this encounter Visit Diagnoses Not on filedocumented in this encounter"
--- OUTSIDE RECORDS SUMMARY | ~2019-10-18 | XMS | Encounter Summary ---
Demographics + + + | Address | [address] | | | [place] [address] | + + + | Home Phone [...] [place] | | | | | [address] | | + + + + + Care Team Providers + +------+ + | Care Balance Bridge Inspector Name | Role | Phone | [...] | | | | | | | [facility] for | | | | | | | Health and | | | | | | | Healing, | | | | | | | Building [address] | | | | | | | [place], [place] | | | | | | | [address] | | | | | | | Phone: | | | | | | | [phone] | | | | | | | Fax: | | | | | | | [phone] | +--------+--------+ + + + + Encounter Details +--------+---------+ + + + | Date | Type | Department | Care Team | Description | +--------+---------+ + + + | 01/25/ | Office | Digestive Health | Celestina Madrigal, | Insulin dependent | | 2018 | Visit | Center at [facility] [address] | diabetes mellitus | | | | [address] | [address] | ([facility]) (Primary Dx); | | | | Mailcode: Chicken | [place], [place] | S/P gastric bypass | | | | for Health and | [address] | | | | | Healing, [address] 2 | | | | | | [place], [place] | | | | | | [address] | | | | | | [phone] | | | +--------+---------+ + + + [...] + + + + | Weight | 138.3 kg (305 lb) | 01/25/2018 8:22 AM | | | | | PDT | | + + + + + | Height | 188 cm (6' 2") | 01/25/2018 8:22 AM | | | | | PDT | | + + + + + | Body Mass Index | 39.16 | 01/25/2018 8:22 AM | | | | | PDT [...] documented as of this encounter Progress Notes Celestina Madrigal, LAVON - 01/25/2018 8:30 AM PDTFormatting of this note might be different f rom the original. Nutrition Counseling: Post-op Bariatric Surgery Follow-Up Patient referred by: No Referring Provider Per Patient NO REFERRING PROVIDER PER PT Documented time of visit: 8:20 to 8:50 (30 minutes bhhz-qk-szxn with patient) Surgery: Gastric Bypass Date of Surgery: 01/17/18 Subjective: Any reported changes: constipation, last BM pre-op. Reports lots of flatus. Tolerating Bariatric Diet: Yes Current Physical Activity: walking around the house, Wednesday walked around [employer] pushing a cart Changes in Diabetes Medications since surgery: Off all insulin, taking Metforimin 500 daily Testing blood glucose: 2x/day, 150-180 - random times, not fasting Objective: Ht Readings from Last 1 Encounters: 01/25/18 1.88 m (6' 2") Wt Readings from Last 2 Encounters: 01/25/18 138.3 kg (305 lb) 01/18/18 149.3 kg (329 lb 2.4 oz) Body mass index is 39.16 kg/m. Weight change since surgery: ~24 lb lost PMHx: Past Medical History: Diagnosis Date Anxiety Depression HBP (high blood pressure) Headache High cholesterol Numbness and tingling JOSE on CPAP Thyroid activity decreased Type 2 diabetes mellitus (HCC) Food logs: No Food choices: SF jello, chicken broth, Premier protein 1x/day, Isopure ~20 gm, yogurt, crea m of wheat, tomato soup Fluid choices: water, G2 Gatorade watered down Supplementation: has yet to start - barimelts MVI, Vitamin D, sublingual B12 - needs to pur ponce Ca supplements Assessment: Overall doing well. Discussed importance of food logs to help monitor fluid and protein goa ls. Also discussed importance of hydration and ambulation as tolerated to help promote BM. Following Bariatric Diet Protocol: Yes Meeting protein goals: Yes Meeting fluid goals: No Fluids from meals: Yes Plan: Reviewed nutrition goals after bariatric surgery. Aim for 64 ounces of fluid and 60-80 grams of protein per day. Continue to follow post-surgery bariatric diet progression: Continue stage 2 full liquid di et for now. On 01/31, begin stage 3 according to bariatric diet guidelines: -Provided written & verbal education/review on stage 3 guidelines, including grocery list of stage 3 foods and sample menus. -Begin introducing soft/ground/moist protein foods -Once meeting protein [...] meals by 30 minutes before & after Begin vitamin & mineral supplementation per post-bariatric surgery guidelines -complete multivitamin & mineral (with iron) supplement, 2/day -9855-5490 mg calcium citrate with vitamin D/day (take in divided doses, not within 2 hour s of multivitamin or iron supplement) (if not chewable or liquid, begin 2 weeks post-surgery ) -At 1 month post-op start 500 mcg/day sublingual B12 supplement (or monthly injections) Continued to reinforce importance of mindful eating. Continue to increase physical activity. Follow up in [address], LD Pager # [phone] docu mented in this encounter Plan of Treatment +--------+ + + + + | Date | Type | Specialty | Care Team | Description | +--------+ + + + + | 12/15/ | Office | Pre-operative | 2, [facility] [address] | | 2019 | Visit | Medicine | [address] | | | | | | [place] [address] | | +--------+ + + + + | 01/04/ | Procedure | Surgery | | | 2019 | Pass | | | | +--------+ + + + + | 01/25/ | Office | Otolaryngology | Santos Valdivia Whitney, | | | 2019 | Visit | | [address] | | | | | | [address] | | | | | | [place], [place] | | | | | | [address] | | | | | | [phone] | | | | | | | | +--------+ + + + + documented as of this encounter Procedures + +--------+ + + + | Procedure Name | Priori | Date/Time | Associated Diagnosis | Comments | | | ty | | | | + +--------+ + + + | PA MNT RE-ASSESSMNT | Routin | 01/25/2018 | Insulin dependent | | | X15MIN | e | 8:57 AM | diabetes mellitus | | | | | PDT | ([facility]) S/P gastric | | | | | | bypass | | + +--------+ + + + documented in this encounter Visit Diagnoses + + | Diagnosis | + + | Insulin dependent diabetes mellitus (HCC) - Primary Type II or unspecified type | | diabetes mellitus without mention of complication, not stated as uncontrolled | + + | S/P gastric bypass Bariatric surgery status | + + documented in this encounter
--- OUTSIDE RECORDS SUMMARY | ~2019-10-18 | XMS | Encounter Summary ---
Demographics + + + | Address | [address] | | | [place] [address] | + + + | Home Phone [...] [place] | | | | | [address] | | + + + + + Care Team Providers + +------+ + | Care Lease Out Man Name | Role | Phone | + +------+ + | Rian Sanchez MD | PCP | | + +------+ + Encounter Details +--------+------+ + + + | Date | Type | Department | Care Team | Description | +--------+------+ + + + | 07/08/ | Lab | Laboratory at [facility] | | Morbid obesity with | | 2016 | | [address] | | BMI of 40.0-44.9, | | | | [place], [place] | | adult ([facility]); Insulin | | | | [address] | | dependent diabetes | | | | [phone] | | mellitus ([facility]); | | | | | | Essential [...] 12/15/ | Office | Pre-operative | 2 [facility] [address] | | | 2019 | Visit | Medicine | [address] | | | | | | [place] [address] | | +--------+ + + + + [...] Rd | | | | | | [place], [place] | | | | | | [address] | | | | | | [phone] | | | | | | | [...] [facility] | [address] | [place] [address] | | | [facility] | | | | | HEALTH + [...] LABORATORY | | | | | | [facility], | | | | | | CORE [...] [facility] | [address] | [place] [address] | | | SERVICES, CORE | PARK [...] | + + + + + | [email or web address] | [address] | [place] [address] | | | [address] | [address] [...] | [facility] | | considered for monitoring half-way glycemic control in patients with: | LABORATORY [...] | + + + + + | [facility] | [address] | [place] [address] | | | SERVICES, SPECIAL | PARK [...] | | | | | determined by [facility] | | | | | | Laboratories. See | | | | | | Compliance Statement B: | | | | | | [employer]formed | | | | | | by [employer],[address] | | | | | | [facility] | | | | | | [address] | | | | | | [phone].[employer]. | | | | | | com, [...] [facility] | [address] | [place], [place] | | | [facility] | | [address] | | + + + + + [...] LABORATORY | [address] | [place] [address] | | | [facility] | | | | | HEALTH + [...] [facility] | [address] | [place] [address] | | | SERVICES, CORE | PARK [...] | + + + + + | [facility] | [address] | [place] [address] | | | SERVICES, CORE | [address] | | | + + + + + documented in this encounter Visit Diagnoses + + | Diagnosis | + + | Morbid obesity with BMI of 40.0-44.9, adult ([facility]) | + + | Insulin dependent diabetes mellitus ([facility]) Type II or unspecified type diabetes | | mellitus without mention of complication, not stated as uncontrolled | + + | Essential hypertension | + + | Hyperlipidemia, unspecified hyperlipidemia type | + + | JOSE on CPAP Obstructive sleep apnea (adult) (pediatric) | + + documented in this encounter"
--- OUTSIDE RECORDS SUMMARY | ~2019-10-18 | XMS | Encounter Summary ---
Demographics + + + | Address | [address] | | | [place] [address] | + + + | Home Phone [...] [place] | | | | | [address] | | + + + + + Care Team Providers + +------+ + | Care Derrick Boat Lever Operator Name | Role | Phone | [...] | | | | [address] | [place], [place] | | | | | Mailcode: PV01 | [address] | | | | | [facility] | [phone] | | | | | [place], [place] | | | | | | [address] | | | | | | [phone] | | | +--------+ + + + [...] 12/15/ | Office | Pre-operative | 2, [facility] [address] | | | 2020 | Visit | Medicine | [address] | | | | | | [place] [address] | | +--------+ + + + + [...] Rd | | | | | | [place] | | | | | | [address] | | | | | | [phone] | | | | | | | | +--------+ + + + + documented as of this encounter Visit Diagnoses Not on filedocumented in this encounter"
--- OUTSIDE RECORDS SUMMARY | ~2019-10-18 | XMS | Encounter Summary ---
Demographics + + + | Address | [address] | | | [place] [address] | + + + | Home Phone [...] [place] | | | | | [address] | | + + + + + Care Team Providers + +------+ + | Care Attractions Associate Name | Role | Phone | + +------+ + | Rian [place] MD | PCP | | + +------+ + Encounter Details +--------+ + + + + | Date | Type | Department | Care Team | Description | +--------+ + + + + | 07/01/ | Documentati | Digestive Health | Mary Gonsalez, | | | 2017 | on | Center at [facility] [address] | ACNP [address] | | | | | [address] | [place], [place] | | | | | Mailcode: Center | [address] | | | | | for Health and | [phone] | | | | | Healing, Building [address] | | | | | | [place], [place] | | | | | | [address] | | | | | | [phone] | | | +--------+ + + + [...] | 12/15/ | Office | Pre-operative | [facility] [address] | | | 2019 | Visit | Medicine | [address] | | | | | | [place] [address] | | +--------+ + + + + | 01/04/ | Procedure | Surgery | | | | 2019 | Pass | | | | +--------+ + + + + | 01/25/ | Office | Otolaryngology | Santos Valdivia, | | | 2019 | Visit | | [address] | | | | | | [address] | | | | | | [place], [place] | | | | | | [address] | | | | | | [phone] | | | | | | | | +--------+ + + + + documented as of this encounter Visit Diagnoses Not on filedocumented in this encounter"
--- OUTSIDE RECORDS SUMMARY | ~2019-10-18 | XMS | Encounter Summary ---
Demographics + + + | Address | [address] | | | [place] [address] | + + + | Home Phone [...] [place] | | | | | [address] | | + + + + + Care Team Providers + +------+ + | Care Booster Plant Operator Name | Role | Phone | + +------+ + | Hemalatha Lawrence PA-C | PCP | | + +------+ + Encounter Details +--------+ + + + + | Date | Type | Department | Care Team | Description | +--------+ + + + + | 01/17/ | Procedure | 6[address] | | | | 2018 | Pass | [address] | | | | | | [facility] | | | | | | Hospital Admitting | | | | | | Desk Located on the | | | | | | 9th floor | | | | | | [place], [place] | | | | | | [address] | | | +--------+ + + + [...] Office | Pre-operative | [address] | | | 2019 | Visit | Medicine | [address] | | | | | | [place] [address] | | +--------+ + + + + | 01/04/ | Procedure | Surgery | | | | 2019 | Pass | | | | +--------+ + + + + | 01/25/ | Office | Otolaryngology | Santos Valdivia, | | | 2020 | Visit | | [address] | | | | | | [address] | | | | | | [place] | | | | | | [address] | | | | | | [phone] | | | | | | | | +--------+ + + + + documented as of this encounter Visit Diagnoses Not on filedocumented in this encounter"
--- OUTSIDE RECORDS SUMMARY | ~2019-10-18 | XMS | Encounter Summary ---
Demographics + + + | Address | [address] | | | [place] [address] | + + + | Home Phone | | + + + | Preferred Language | Unknown | + + + | Marital Status | | + + + | Christian Affiliation | NRP | + + + [...] [place] | | | | | [address] | | + + + + + Care Team Providers + +------+ + | Care Herb Counselor Name | Role | Phone | + +------+ + | Rian [place] MD | PCP | | + +------+ + Encounter Details +--------+ + + + + | Date | Type | Department | Care Team | Description | +--------+ + + + + | 10/05/ | Abstract | Cardiology | Poly Joseph | | | 2016 | | Preventive at [facility] | [address] | | | | | [address] | [address] [place], | | | | | Mailcode: [place] | [place] [address] | | | | | [facility] | [phone] | | | | | and Healing, | | | | | | Building [address] | | | | | | [place], [place] | | | | | | [address] | | | | | | [phone] | | | +--------+ + + + [...] | | | | | [place] [address] | | +--------+ + + + + [...] [place] | | | | | | [address] | | | | | | [phone] | | | | | | | | +--------+ + + + + documented as of this encounter Visit Diagnoses Not on filedocumented in this encounter"
--- OUTSIDE RECORDS SUMMARY | ~2019-10-18 | XMS | Encounter Summary ---
Demographics + + + | Address | [address] [facility] [facility] [address] [facility] | | | [place] [address] | + + + | Home Phone [...] [place] | | | | | [address] | | + + + + + Care Team Providers + +------+ + | Care Nurse Sexual Assault Name | Role | Phone | + [...] [facility] | | | | | [facility] | | | | | | and Healing, | | | | | | Building 1, 6th | | | | | | Floor [place], [place] | | | | | | [address] | | | | | | [phone] | | | +--------+ + + + [...] | | | | | [place] [address] | | +--------+ + + + + [...] Rd | | | | | | [place], [place] | | | | | | [address] | | | | | | [phone] | | | | | | | | +--------+ + + + + documented as of this encounter Visit Diagnoses Not on filedocumented in this encounter"
--- OUTSIDE RECORDS SUMMARY | ~2019-10-18 | XMS | Encounter Summary ---
Demographics + + + | Address | [address] | | | [place] [address] | + + + | Home Phone [...] [place] | | | | | [address] | | + + + + + Care Team Providers + +------+ + | Care Charge Account Identification Clerk Name | Role | Phone | + +------+ + | Hemalatha Lawrence PA-C | PCP | | + +------+ + Reason for Visit +--------+ + | Reason | Comments | +--------+ + | Nausea | | +--------+ + Encounter Details +--------+ + + + + | Date | Type | Department | Care Team | Description | +--------+ + + + + | 04/30/ | Telephone | Digestive Health | Brayden [place], | Nausea | | 2018 | | Center [address] | [address] | | | | | [place] Mailcode: [facility] | [address] | | | | | [facility] | [place], [place] | | | | | and [place], | [address] | | | | | [place] [address], 6th | [phone] | | | | | Floor [place], [place] | | | | | | [address] | | | | | | [phone] | | | +--------+ + + + [...] 12/15/ | Office | Pre-operative | [facility] [address] | | | 2019 | Visit | Medicine | [address] | | | | | | [place] [address] | | +--------+ + + + + [...] Rd | | | | | | [place] | | | | | | [address] | | | | | | [phone] | | | | | | | | +--------+ + + + + documented as of this encounter Visit Diagnoses Not on filedocumented in this encounter"
--- OUTSIDE RECORDS SUMMARY | ~2019-10-18 | XMS | Encounter Summary ---
Demographics + + + | Address | [address] | | | [place] [address] | + + + | Home Phone | | + + + | Preferred Language | Unknown | + + + | Marital Status | | + + + | Zoroastrian Affiliation | NRP | + + + [...] [place] | | | | | [address] | | + + + + + Care Team Providers + +------+ + | Care Carbon Paper Interleafer Name | Role | Phone | + +------+ + | Hemalatha Lawrence PA-C | PCP | | + +------+ + Encounter Details +--------+ + + + + | Date | Type | Department | Care Team | Description | +--------+ + + + + | 05/04/ | Inside | [facility]HEW at [facility] | Clair Downing | | | 2017 | Referral | [facility] [address] | MD Eris [address] | | | | Order | [address] Mailcode: | [address] | | | | | [facility] | [place], [place] | | | | | Health and Healing, | [address] | | | | | [address] | [phone] | | | | | [place], [place] | | | | | | [address] | | | | | | [phone] | | | +--------+ + + + [...] | 2, [facility] [address] | | | 2020 | Visit | Medicine | [address] | | | | | | [place] [address] | | +--------+ + + + + | 01/04/ | Procedure | Surgery | | | | 2019 | Pass | | | | +--------+ + + + + | 01/25/ | Office | Otolaryngology | Santos Valdivia, | | | 2019 | Visit | | [address] [facility] | | | | | | [address] | | | | | | [place], [place] | | | | | | [address] | | | | | | [phone] | | | | | | | | +--------+ + + + + documented as of this encounter Results ANKITA (05/25/2018 10:28 AM PDT) + + | Specimen | + + | | + + + +--------- -----+ | Narrative | Performe d At | + +--------- -----+ | MRN: | [facility] | | [id number] Date: 05/25/2018Patient Name: Mynor Booth #: | ENDOSCOP Y | | [id number] of : 1970CSN: [id number] Type: | | | [facility]Procedure: Upper GI | | | endoscopyIndications: Therapeutic procedure, dilation of | | | 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 The | | | dgzogwle-wz-brfonsn limb was not examined. A TTS dilator [...]
--- OUTSIDE RECORDS SUMMARY | ~2019-10-18 | XMS | Encounter Summary ---
Demographics + + + | Address | [address] | | | [place] [address] | + + + | Home Phone | | + + + | Preferred Language | Unknown | + + + | Marital Status | | + + + | Roman Catholic Affiliation | NRP | + + + | Race | White | + + + | Ethnic Group | Not or | + + + Author + + + | Author | [facility] | + + + | Organization | [facility] | + + + | Address | Unknown | + + + | Phone | Unavailable | + + + Support + + + + + | Name | Relationship | Address | Phone | + + + + + | Pooja Valdez | ECON | [address] | | | | | [place] | | | | | [address] | | + + + + + Care Team Providers + +------+ + | Care Turn Out Worker Name | Role | Phone | + +------+ + | Hemalatha Lawrence PA-C | PCP | | + +------+ + Encounter Details +--------+ + + + + | Date | Type | Department | Care Team | Description | +--------+ + + + + | 04/14/ | MyChart | Digestive Health | Arvin Altamirano, | RE: RE: TANNER | | 2018 | Encounter | Center [address] | MD [address] | | | | | Ave Mailcode: [facility] | [place], [place] | | | | | Center for Health | [address] | | | | | and Healing, | [phone] | | | | | [facility] | | | | | | Floor [place], [place] | | | | | | [address] | | | | | | [phone] | | | +--------+ + + + [...] 12/15/ | Office | Pre-operative | 2, [facility] [address] | | | 2020 | Visit | Medicine | [address] | | | | | | [place] [address] | | +--------+ + + + + [...] Rd | | | | | | [place] | | | | | | [address] | | | | | | [phone] | | | | | | | | +--------+ + + + + documented as of this encounter Visit Diagnoses Not on filedocumented in this encounter"
--- OUTSIDE RECORDS SUMMARY | ~2019-10-18 | XMS | Encounter Summary ---
Demographics + + + | Address | [address] [address] [facility] | | | [place] [address] | + + + | Home Phone [...] [place] | | | | | [address] | | + + + + + Care Team Providers + +------+ + | Care Heel Builder Machine Name | Role | Phone | + [...] | Closed | | | Diagnoses | [place], | | | | | | Abdominal | Arvin Briscoe MD | | | | | | pain, | [address] | | | | | | unspecified | [address] | | | | | | abdominal | [place], [place] | | | | | | location | [address] | | | | | | Epigastric | Phone: | | | | | | pain S/P | [phone] | | | | | | gastric | Fax: | | | | | | bypass | [phone] | | | | | | Nausea [...] | | 2018 | | Center at [facility] [address] | MD [address] | | | | | [address] | [place], [place] | | | | | Mailcode: [place] | [address] | | | | | for Health and | [phone] | | | | | [facility] [address] | | | | | | [place], [place] | | | | | | [address] | | | | | | [phone] | | | +--------+ + + + [...] 12/15/ | Office | Pre-operative | 2, [facility] [address] | | | 2019 | Visit | Medicine | [address] | | | | | | [place] [address] | | +--------+ + + + + [...] Rd | | | | | | [place], [place] | | | | | | [address] | | | | | | [phone] | | | | | | | [...]
--- OUTSIDE RECORDS SUMMARY | ~2019-10-18 | XMS | Encounter Summary ---
Demographics + + + | Address | [address] | | | [place] [address] | + + + | Home Phone [...] [place] | | | | | [address] | | + + + + + Care Team Providers + +------+ + | Care Cadmium Liquor Maker Name | Role | Phone | [...] | 2016 | Visit | Center at [facility] [address] | | BMI of 40.0-44.9, | | | | [address] | | adult (HCC) (Primary | | | | Mailcode: Center | | Dx) | | | | for Health and | | | | | | [facility], Building 2 | | | | | | [place], [place] | | | | | | [address] | | | | | | [phone] | | | +--------+---------+ + + + [...] of Class: 2:00/3:00 until 3:00/4:00 (60 minutes ippm-yc-nlqv with patient) OBJECTIVE: Height: Ht Readings from [...] or sharing information. Yes Angie Hernandez RD, [facility], LD [facility] Bariatrics [phone] documented in this enco unter Plan of Treatment +--------+ + + + + | Date | Type | Specialty | Care Team | Description | +--------+ + + + + | 12/15/ | Office | Pre-operative | 2, Andrés Chambers [address] | | | 2020 | Visit | Medicine | [address] | | | | | | [place] [address] | | +--------+ + + + + [...] Rd | | | | | | [place], [place] | | | | | | [address] | | | | | | [phone] | | | | | | | | +--------+ + + + + documented as of this encounter Visit Diagnoses + + | Diagnosis | + + | Morbid obesity with BMI of 40.0-44.9, adult (HCC) - Primary | + + documented in this encounter
--- OUTSIDE RECORDS SUMMARY | ~2019-10-18 | XMS | Encounter Summary ---
Demographics + + + | Address | [address] | | | [place] [address] | + + + | Home Phone | | + + + | Preferred Language | Unknown | + + + | Marital Status | | + + + | Buddhist Affiliation | NRP | + + + | Race | White | + + + | Ethnic Group | Not or | + + + Author + + + | Author | [facility] | + + + | Organization | [facility] | + + + | Address | Unknown | + + + | Phone | Unavailable | + + + Support + + + + + | Name | Relationship | Address | Phone | + + + + + | Pooja Valdez | ECON | 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 | +--------+------+ + + [...] Rd | | | | | | [place] [address] | | +--------+ + + + + [...] Rd | | | | | | [place], [place] | | | | | | [address] | | | | | | [phone] | | | | | | | [...] | | Impaired intestinal | | | KARTHKI TOTAL,ALK | | | absorption | | [...] [facility] | [address] | [place] [address] | | | SERVICES, CORE | SHANA [...] | + + + + + | [facility] | [address] | [place] [address] | | | SERVICES, CORE | SHANA [...] | [facility] | | considered for monitoring intermediate accountant glycemic control in patients with: | LABORATORY [...] [facility] | [address] | [place] [address] | | | SERVICES, SPECIAL | SHANA [...] | | | | | determined by [employer] | | | | | | Laboratories. See | | | | | | Compliance Statement B: | | | | | | 79 Group/CSPerformed | | | | | | by [employer],[address] | | | | | | [address], [facility] | | | | | | [address] | | | | | | [phone].[employer]. | | | | | | Laurent [...] | + + + + + | [facility] | [address] | [place], [place] | | | UNIV P[facility] INTFC | | [address] | | + + + + + [...] | | | LABORATORY | | | [place] | | | SERVICES, | | | [...] the MDRD equation recommended by the | [facility] | | National Kidney Disease Education Program. [...] | + + + + + | [facility] | [address] [facility] | [place] [address] | | | FILI, CORE | SHANA [...] [facility] | [address] | [place] [address] | | | SERVICES, CORE | PARK [...] [facility] | [address] | [place] [address] | | | SERVICES, CORE | PARK [...] | + + + + + | [facility] | [address] | [place] [address] | | | SERVICES, CORE | SHANA [...] [facility] | [address] | [place] [address] | | | SERVICES, CORE | PARK [...] | + + + + + | [facility] | [address] | [place] [address] | | | SERVICES, CORE | SHANA [...]
--- OUTSIDE RECORDS SUMMARY | ~2019-10-18 | XMS | Encounter Summary ---
Demographics + + + | Address | [address] | | | [place] [address] | + + + | Home Phone [...] + + + | Author | [facility] | + + + | Organization | [facility] | + + + | Address | Unknown | + + + | Phone | Unavailable | + + + Support + + + + + | Name | Relationship | Address | Phone | + + + + + | Pooja Valdez | ECON | [address] | | | | | [place] | | | | | [address] | | + + + + + Care Team Providers + +------+ + | Care Window Glazier Name | Role | Phone | + +------+ + | Rian Sanchez MD | PCP | | + +------+ + Encounter Details +--------+ + + + + | Date | Type | Department | Care Team | Description | +--------+ + + + + | 11/10/ | Abstract | Digestive Health | Clinic, Surgery | | | 2017 | | [place] at [facility] [address] | | | | | | [address] | | | | | | Mailcode: Center | | | | | | for Health and | | | | | | Healing, Building [address] | | | | | | [place], [place] | | | | | | [address] | | | | | | [phone] | | | +--------+ + + + [...] 12/15/ | Office | Pre-operative | 2, [facility] [address] | | 2019 | Visit | Medicine | [address] | | | | | | [place] [address] | | +--------+ + + + + [...] [place] | | | | | | [address] | | | | | | [phone] | | | | | | | | +--------+ + + + + documented as of this encounter Visit Diagnoses Not on filedocumented in this encounter"
--- OUTSIDE RECORDS SUMMARY | ~2019-10-18 | XMS | Encounter Summary ---
Demographics + + + | Address | [address] | | | [place] [address] | + + + | Home Phone [...] [place] | | | | | [address] | | + + + + + Care Team Providers + +------+ + | Care Welder Oxyhydrogen Name | Role | Phone | + [...] 2017 | Encounter | Center at [facility] [address] | MD [address] | | | | | [address] | [place], [place] | | | | | Mailcode: Center | [address] | | | | | for Health and | [phone] | | | | | Healing, Building [address] | | | | | | [place], [place] | | | | | | [address] | | | | | | [phone] | | | +--------+ + + + [...] – [place] [address] | | | 2020 | Visit | Medicine | [address] | | | | | | [place] [address] | | +--------+ + + + + | 01/04/ | Procedure | Surgery | | | | 2019 | Pass | | | | +--------+ + + + + | 01/25/ | Office | Otolaryngology | Santos Valdivia, | | | 2019 | Visit | | [address] [facility] | | | | | | [address] | | | | | | [facility] [place] | | | | | | [address] | | | | | | [phone] | | | | | | | | +--------+ + + + + documented as of this encounter Visit Diagnoses Not on filedocumented in this encounter"
--- OUTSIDE RECORDS SUMMARY | ~2019-10-18 | XMS | Encounter Summary ---
Demographics + + + | Address | [address] | | | [place] [address] | + + + | Home Phone | | + + + | Preferred Language | Unknown | + + + | Marital Status | | + + + | Nondenominational Affiliation | NRP | + + + [...] [place] | | | | | [address] | | + + + + + Care Team Providers + +------+ + | Care General Freight Agent Name | Role | Phone | + [...] 2018 | Encounter | Center at [facility] [address] | AGACNP [address] | | | | | [address] | [place], [place] | | | | | Mailcode: Center | [address] | | | | | for Health and | [phone] | | | | | Healing, Building [address] | | | | | | [place], [place] | | | | | | [address] | | | | | | [phone] | | | +--------+ + + + [...] – [place] [address] | | | 2020 | Visit | Medicine | [address] | | | | | | [place] [address] | | +--------+ + + + + | 01/04/ | Procedure | Surgery | | | | 2019 | Pass | | | | +--------+ + + + + | 01/25/ | Office | Otolaryngology | Santos Valdivia, | | | 2019 | Visit | | [address] [facility] | | | | | | [address] | | | | | | [place] | | | | | | [address] | | | | | | [phone] | | | | | | | | +--------+ + + + + documented as of this encounter Visit Diagnoses Not on filedocumented in this encounter"
--- OUTSIDE RECORDS SUMMARY | ~2019-10-18 | XMS | Encounter Summary ---
Demographics + + + | Address | [address] | | | [place] [address] | + + + | Home Phone [...] [place] | | | | | [address] | | + + + + + Care Team Providers + +------+ + | Care Employee Benefits Administrator Name | Role | Phone | [...] 2017 | Encounter | Center at [facility] [address] | MD [address] | | | | | [address] | [place], [place] | | | | | Mailcode: Center | [address] | | | | | for Health and | [phone] | | | | | Healing, Building [address] | | | | | | [place], [place] | | | | | | [address] | | | | | | [phone] | | | +--------+ + + + [...] 12/15/ | Office | Pre-operative | 2, [facility] [address] | | | 2019 | Visit | Medicine | [address] | | | | | | [place] [address] | | +--------+ + + + + [...] [place] | | | | | | [address] | | | | | | [phone] | | | | | | | | +--------+ + + + + documented as of this encounter Visit Diagnoses Not on filedocumented in this encounter"
--- OUTSIDE RECORDS SUMMARY | ~2019-10-18 | XMS | Encounter Summary ---
Demographics + + + | Address | [address] | | | [place] [address] | + + + | Home Phone [...] [place] | | | | | [address] | | + + + + + Care Team Providers + +------+ + | Care Final Assembler Name | Role | Phone | + +------+ + | Hemalatha Lawrence PA-C | PCP | | + +------+ + Encounter Details +--------+ + + + + | Date | Type | Department | Care Team | Description | +--------+ + + + + | 01/28/ | MyChart | Digestive Health | Kaylee Purcell, | RE: RE: Weakness and | | 2018 | Encounter | Center at [facility] [address] | AGACNP [address] | dizziness | | | | [address] | [place], [place] | | | | | Mailcode: Center | [address] | | | | | for [facility] and | | | | | | [facility] 2 | | | | | | [place], [place] | | | | | | [address] | | | | | | | [...] | Office | Pre-operative | 2, [facility] [address] | | | 2020 | Visit | Medicine | [address] | | | | | | [place] [address] | | +--------+ + + + + [...] Rd | | | | | | [place] | | | | | | [address] | | | | | | [phone] | | | | | | | | +--------+ + + + + documented as of this encounter Visit Diagnoses Not on filedocumented in this encounter"
--- OUTSIDE RECORDS SUMMARY | ~2019-10-18 | XMS | Encounter Summary ---
Demographics + + + | Address | [address] | | | [place] [address] | + + + | Home Phone [...] + + + | Author | [facility] | + + + | Organization | [facility] | + + + | Address | Unknown | + + + | Phone | Unavailable | + + + Support + + + + + | Name | Relationship | Address | Phone | + + + + + | Pooja Valdez | ECON | [address] | | | | | [place] | | | | | [address] | | + + + + + Care Team Providers + +------+ + | Care Arch Support Maker Name | Role | Phone | [...] [address] | | | | | [facility] | [place], [place] | | | | | and Kailyn, | [address] | | | | | [place] [address], [address]th | [phone] | | | | | Floor [place], [place] | | | | | | [address] | | | | | | [phone] | | | +--------+ + + + [...] 12/15/ | Office | Pre-operative | [facility] [address] | | | 2019 | Visit | Medicine | [address] | | | | | | [place] [address] | | +--------+ + + + + [...] Rd | | | | | | [place] | | | | | | [address] | | | | | | [phone] | | | | | | | | +--------+ + + + + documented as of this encounter Visit Diagnoses Not on filedocumented in this encounter"
--- OUTSIDE RECORDS SUMMARY | ~2019-10-18 | XMS | Encounter Summary ---
Demographics + + + | Address | [address] | | | [place] [address] | + + + | Home Phone | | + + + | Preferred Language | Unknown | + + + | Marital Status | | + + + | Mormon Affiliation | NRP | + + + | Race | White | + + + | Ethnic Group | Not or | + + + Author + + + | Author | [facility] | + + + | Organization | [facility] | + + + [...] [place] | | | | | [address] | | + + + + + Care Team Providers + +------+ + | Care Buckle Frame Shaper Name | Role | Phone | + +------+ + | Hemalatha Lawrence PA-C | PCP | | + +------+ + Encounter Details +--------+ + + + + | Date | Type | Department | Care Team | Description | +--------+ + + + + | 12/22/ | MyChart | Digestive Health | Clinic, Surgery | Surgeon Visit | | 2018 | Encounter | Center at [facility] [address] | | | | | | [address] | | | | | | Mailcode: Center | | | | | | for Health and | | | | | | Healing, Building [address] | | | | | | [place], [place] | | | | | | [address] | | | | | | [phone] | | | +--------+ + + + [...] | Office | Pre-operative | 2, [facility] [address] | | | 2019 | Visit | Medicine | [address] | | | | | | [place] [address] | | +--------+ + + + + [...] Rd | | | | | | [place] | | | | | | [address] | | | | | | [phone] | | | | | | | | +--------+ + + + + documented as of this encounter Visit Diagnoses Not on filedocumented in this encounter"
--- OUTSIDE RECORDS SUMMARY | ~2019-10-18 | XMS | Encounter Summary ---
Demographics + + + | Address | [address] | | | [place] [address] | + + + | Home Phone [...] [place] | | | | | [address] | | + + + + + Care Team Providers + +------+ + | Care Fabricator Special Items Name | Role | Phone | + [...] 2018 | Encounter | Center at [facility] [address] | AGACNP [address] | | | | | [address] | [place], [place] | | | | | Mailcode: Center | [address] | | | | | for Health and | [phone] | | | | | Healing, Building [address] | | | | | | [place], [place] | | | | | | [address] | | | | | | [phone] | | | +--------+ + + + [...] – [place] [address] | | | 2020 | Visit | Medicine | [address] | | | | | | [place] [address] | | +--------+ + + + + | 01/04/ | Procedure | Surgery | | | | 2019 | Pass | | | | +--------+ + + + + | 01/25/ | Office | Otolaryngology | Santos Valdivia, | | | 2019 | Visit | | [address] [facility] | | | | | | [address] | | | | | | [facility] [place] | | | | | | [address] | | | | | | [phone] | | | | | | | | +--------+ + + + + documented as of this encounter Visit Diagnoses Not on filedocumented in this encounter"
--- OUTSIDE RECORDS SUMMARY | ~2019-10-18 | XMS | Encounter Summary ---
Demographics + + + | Address | [address] [facility] | | | [place] [address] | + + + | Home Phone [...] [place] | | | | | [address] | | + + + + + Care Team Providers + +------+ + | Care Deputy Sheriff K9 Handler Name | Role | Phone | + [...] | | | | | [place] [address] | | +--------+ + + + + | 01/04/ | Procedure | Surgery | | | | 2019 | Pass | | | | +--------+ + + + + | 01/25/ | Office | Otolaryngology | Santos Valdivia, | | | 2019 | Visit | | [address] | | | | | | [address] | | | | | | [place] | | | | | | [address] | | | | | | [phone] | | | | | | | | +--------+ + + + + documented as of this encounter Visit Diagnoses Not on filedocumented in this encounter"
--- OUTSIDE RECORDS SUMMARY | ~2019-10-18 | XMS | Encounter Summary ---
Demographics + + + | Address | [address] | | | [place] [address] | + + + | Home Phone [...] [place] | | | | | [address] | | + + + + + Care Team Providers + +------+ + | Care Metal Checker Name | Role | Phone | + [...] | Center at [facility] [address] | [address] | | | | | [address] | [address] | | | | | Mailcode: Center | [place], [place] | | | | | for Health and | [address] | | | | | Healing, Building [address] | | | | | | [place], [place] | | | | | | [address] | | | | | | [phone] | | | +--------+ + + + [...] 12/15/ | Office | Pre-operative | 2, [facility] [address] | | | 2020 | Visit | Medicine | [address] | | | | | | [place] [address] | | +--------+ + + + + | 01/04/ | Procedure | Surgery | | | | 2019 | Pass | | | | +--------+ + + + + | 01/25/ | Office | Otolaryngology | Santos Valdivia, | | | 2019 | Visit | | [address] [facility] | | | | | | [address] | | | | | | [place] | | | | | | [address] | | | | | | [phone] | | | | | | | | +--------+ + + + + documented as of this encounter Visit Diagnoses Not on filedocumented in this encounter"
--- OUTSIDE RECORDS SUMMARY | ~2019-10-18 | XMS | Encounter Summary ---
Demographics + + + | Address | [address] | | | [place] [address] | + + + | Home Phone | | + + + | Preferred Language | Unknown | + + + | Marital Status | | + + + | Synagogue Affiliation | NRP | + + + [...] [place] | | | | | [address] | | + + + + + Care Team Providers + +------+ + | Care Ratchet Setter Name | Role | Phone | + [...] | [facility] | | | with MEMBERSHIP ASSISTANT | | | | [facility] [address] | | | | | | | [address] | | | | | | | Mailcode: | | | | | | | [place] for | | | | | | | Health and | | | | | | | Healing, | | | | | | | Building [address] | | | | | | | [place], [place] | | | | | | | [address] | | | | | | | Phone: | | | | | | | [phone] | | | | | | | Fax: | | | | | | | [phone] | +--------+ + + + + + [...] | | [address] | Ave [place], [place] | Essential | | | | Mailcode: Center | [address] | hypertension; | | | | for Health and | [phone] | Impaired intestinal | | | | Healing, Building 2 | | absorption | | | | [place], [place] | | | | | | [address] | | | | | | [phone] | | | +--------+---------+ + + + [...] to POC and will call or send Enval if any issues. 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 FINDINGS: No prior [...] to POC and will call or send Enval if any issues. Start time 15:35, end time 16:00. I spent a total of 25 minutes face to face with this pat ient. Over 50% of visit was in counseling. ~ 10 minutes of additional time spent reviewing chart prior to visit and documenting after this visit. Mary SANCHEZ WESTERN PHILOSOPHY PROFESSOR Bariatric Surgery Nurse Practitioner [facility] | [address] | [place], [place] | [address] | documented in this e ncounter Plan of Treatment +--------+ + + + + | Date | Type | Specialty | Care Team | Description | +--------+ + + + + | 12/15/ | Office | Pre-operative | 2, Andr[facility] Chambers [address] | | | 2019 | Visit | Medicine | [address] | | | | | | [place] [address] | | +--------+ + + + + | 01/04/ | Procedure | Surgery | | | | 2019 | Pass | | | | +--------+ + + + + | 01/25/ | Office | Otolaryngology | Santos Valdivia, | | | 2019 | Visit | | [address] | | | | | | [address] | | | | | | [place], [place] | | | | | | [address] | | | | | | [phone] | | | | | | | [...] + + + + + | [facility] [employer] | [address] | [place] [address] | | | SERVICES, CORE | SHANA [...] | [facility] | | considered for monitoring exterminator helper termite glycemic control in patients with: | LABORATORY [...] | + + + + + | [facility] | [address] | [place] [address] | | | FILI SPECIAL | SHANA [...] | | | | | determined by [employer] | | | | | | Laboratories. See | | | | | | Compliance Statement B: | | | | | | locr.[employer]/CSPerformed | | | | | | by [employer],[address] | | | | | | [facility] | | | | | | [address] | | | | | | [phone].locr. | | | | | | com, [...] [facility] | [address] | [place], [place] | | | UNIV P[facility] INTFC | | [address] | | + + + + + [...] | | | LABORATORY | | | [place] | | | SERVICES, | | | [...] the MDRD equation recommended by the | [facility] | | National Kidney Disease Education [...] [facility] | [address] | [place] [address] | | | SERVICES, CORE | PARK [...] [facility] | [address] | [place] [address] | | | SERVICES, CORE | PARK [...] [facility] | [address] | [place] [address] | | | SERVICES, CORE | PARK [...] | + + + + + | [facility] | [address] | [place] [address] | | | SERVICES, CORE | SHANA [...] | + + + + + | [facility] | [address] | [place] [address] | | | SERVICES, CORE | PARK [...] | + + + + + | [facility] | [address] | [place] [address] | | | SERVICES, CORE | SHANA [...]
--- OUTSIDE RECORDS SUMMARY | ~2019-10-18 | XMS | Encounter Summary ---
Demographics + + + | Address | [address] | | | [place] [address] | + + + | Home Phone [...] + + + | Author | [facility] | + + + | Organization | [facility] | + + + | Address | Unknown | + + + | Phone | Unavailable | + + + Support + + + + + | Name | Relationship | Address | Phone | + + + + + | Pooja Valdez | ECON | [address] | | | | | [place] | | | | | [address] | | + + + + + Care Team Providers + +------+ + | Care Deck Engineer Name | Role | Phone | + +------+ + | Hemalatha Lawrence PA-C | PCP | | + +------+ + Encounter Details +--------+ + + + + | Date | Type | Department | Care Team | Description | +--------+ + + + + | 01/18/ | Pharmacy | Outpatient Retail | | | | 2017 | Visit | [facility] | | | | | | [address] | | | | | | [place], [place] | | | | | | [address] | | | | | | [phone] | | | +--------+ + + + [...] 12/15/ | Office | Pre-operative | 2, [facility] [address] | | | 2019 | Visit | Medicine | [address] | | | | | | [place] [address] | | +--------+ + + + + [...] [place] | | | | | | [address] | | | | | | [phone] | | | | | | | | +--------+ + + + + documented as of this encounter Visit Diagnoses Not on filedocumented in this encounter"
--- OUTSIDE RECORDS SUMMARY | ~2019-10-18 | XMS | Encounter Summary ---
Demographics + + + | Address | [address] | | | [place] [address] | + + + | Home Phone | | + + + | Preferred Language | Unknown | + + + | Marital Status | | + + + | Yazidism Affiliation | NRP | + + + | Race | White | + + + | Ethnic Group | Not or | + + + Author + + + | Author | [facility] | + + + | Organization | [facility] | + + + | Address | Unknown | + + + | Phone | Unavailable | + + + Support + + + + + | Name | Relationship | Address | Phone | + + + + + | Pooja Valdez | ECON | [address] | | | | | [place] | | | | | [address] | | + + + + + Care Team Providers + +------+ + | Care Computer Hardware Technician Name | Role | Phone | + +------+ + | Rian Sanchez MD | PCP | | + +------+ + Encounter Details +--------+ + + + + | Date | Type | Department | Care Team | Description | +--------+ + + + + | 10/29/ | Document-Sc | Health Information | Unknown . | | | 2017 | anned | Services [address] | | | | | | [address] | | | | | | Mailcode: [id number] | | | | | | [facility] | | | | | | [place], [place] | | | | | | [address] | | | | | | [phone] | | | +--------+ + + + [...] Office | Pre-operative | 2, [facility] [address] | | | 2019 | Visit | Medicine | [address] | | | | | | [place] [address] | | +--------+ + + + + | 01/04/ | Procedure | Surgery | | | | 2019 | Pass | | | | +--------+ + + + + | 01/25/ | Office | Otolaryngology | Santos Valdivia, | | | 2019 | Visit | | [address] | | | | | | [address] | | | | | | [place], [place] | | | | | | [address] | | | | | | [phone] | | | | | | | [...]
--- OUTSIDE RECORDS SUMMARY | ~2019-10-18 | XMS | Encounter Summary ---
Demographics + + + | Address | [address] [facility] | | | [place] [address] | + + + | Home Phone [...] [place] | | | | | [address] | | + + + + + Care Team Providers + +------+ + | Care Perforator Operator Oil Well Name | Role | Phone | + +------+ + | Rian Sanchez MD | PCP | | + +------+ + Encounter Details +--------+ + + + + | Date | Type | Department | Care Team | Description | +--------+ + + + + | 11/03/ | Abstract | Cardiology | Poly Joseph | | | 2016 | | Preventive at [facility] | CHADWICK Amaro [address] | | | | | [address] | [address] [place], | | | | | Mailcode: [id number] | [place] [address] | | | | | [facility] | [phone] | | | | | and Healing, | | | | | | [address] | | | | | | [place], [place] | | | | | | [address] | | | | | | [phone] | | | +--------+ + + + [...] Rd | | | | | | [place] [address] | | +--------+ + + + + [...] Rd | | | | | | [place], [place] | | | | | | [address] | | | | | | [phone] | | | | | | | | +--------+ + + + + documented as of this encounter Procedures + +--------+ + + + | Procedure Name | Priori | Date/Time | Associated Diagnosis | Comments | | | ty | | | | + +--------+ + + + | BASIC METABOLIC SET | Routin | 10/29/2017 | | Results for this | | (NA, K, CL, TCO2, | e | | | procedure are in the | | BUN, CR, GLU, CA) | | | | results section. | + +--------+ + + + documented in this encounter Results BASIC METABOLIC SET (NA, K, CL, TCO2, BUN, CR, GLU, CA) (10/29/2017) + +-------+ + + + | Component | Value | Ref Range | Performed | Pathologist | | | | | At | Signature | + +-------+ + + + | GLUCOSE, | 76 | 70 - 100 mg/dL | [facility] | | | PLASMA | | | LAB - | | | (LAB) | | | [place] | | + +-------+ + + + | BUN, PLASMA | 16 | 6 - 23 mg/dL | [facility] | | | (LAB) | | | LAB - | | | | | | [place] | | + +-------+ + + + | CREATININE | 0.82 | 0.60 - 1.35 | [facility] | | | PLASMA | | mg/dL | LAB - | | | (LAB) | | | [facility] | | + +-------+ + + + | SODIUM, | 139 | 132 - 143 | [facility] | | | PLASMA | | mmol/L | LAB - | | | (LAB) | | | [facility] | | + +-------+ + + + | POTASSIUM, | 4.0 | 3.6 - 5.1 | [facility] | | | PLASMA | | mmol/L | LAB - | | | (LAB) | | | [facility] | | + +-------+ + + + | CHLORIDE, | 101 | 95 - 112 mmol/L | [facility] | | | PLASMA | | | LAB - | | | (LAB) | | | [facility] | | + +-------+ + + + | TOTAL CO2, | 27 | 19 - 31 mmol/L | [facility] | | | PLASMA | | | LAB - | | | (LAB) | | | [facility] | | + +-------+ + + + | CALCIUM, | 9.6 | 8.4 - 10.2 | [facility] | | | PLASMA | | mg/dL | LAB - | | | (LAB) | | | [facility] | | + +-------+ + + + | BUN/CREATIN | 19.5 | 6.0 - 28.6 | [facility] | | | INE RATIO | | | LAB - | | | | | | [facility] | | + +-------+ + + + + + | Specimen | + + | Blood - Blood | | (substance) | + + + + + + + | Performing | Address | City/State/Zipcode | Phone Number | | Organization | | | | + + + + + | [facility] | [address] | [place] | [phone] | | [place] | | | | + + + + + documented in this encounter Visit Diagnoses Not on filedocumented in this encounter"
--- OUTSIDE RECORDS SUMMARY | ~2019-10-18 | XMS | Encounter Summary ---
Demographics + + + | Address | [address] [facility] | | | [place] [address] | + + + | Home Phone | | + + + | Preferred Language | Unknown | + + + | Marital Status | | + + + | Temple Affiliation | NRP | + + + | Race | White | + + + | Ethnic Group | Not or | + + + Author + + + | Author | [facility] | + + + | Organization | [facility] | + + + | Address | Unknown | + + + | Phone | Unavailable | + + + Support + + + + + | Name | Relationship | Address | Phone | + + + + + | Pooja Valdez | ECON | [address] | | | | | [place] | | | | | [address] | | + + + + + Care Team Providers + +------+ + | Care Creative Resource Manager Name | Role | Phone | + +------+ + | Hemalatha Lawrence PA-C | PCP | | + +------+ + Encounter Details +--------+ + + + + | Date | Type | Department | Care Team | Description | +--------+ + + + + | 04/15/ | Inside | Endoscopic | Arvin Altamirano, | | | 2018 | Referral | Procedural Unit at | MD [address] | | | | Order | [address] | [place], [place] | | | | | [address] | [address] | | | | | Mailcode: [id number] | [phone] | | | | | [address] | | | | | | [address] [place], [place] | | | | | | [address] | | | | | | [phone] | | | +--------+ + + + [...] Rd | | | | | | [place] [address] | | +--------+ + + + + [...] Rd | | | | | | [place], [place] | | | | | | [address] | | | | | | [phone] | | | | | | | | +--------+ + + + + documented as of this encounter Results ANKITA (04/21/2018 8:14 AM PDT) + + | Specimen | + + | | + + + +------- -------+ | Narrative | Perfor med At | + +------- -------+ | MRN: | [facility] | | [id number] Date: 04/21/2018Patient Name: Mynor Booth #: | ENDOSC OPY | | [id number] of : 1970CSN: [id number] Type: | | | AmbulatoryRoom: GI 2Procedure: Upper GI | | | endoscopyIndications: 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 | | | The Olympus [id number] Gastroscope | | | #[id number] was introduced through the | | | [...] 1 week for | | | retreatment.ROLANDO SWANSON MD04/21/2018 8:48:49 AMThis report has been | | | signed electronically.Number of Addenda: 0Note Initiated On: 04/21/2018 | | | 8:14 [facility] Letter to: HEMALATHA LAWRENCE PA-C | | | - Full liquid diet. | | | - Use Prilosec (omeprazole) 40 mg PO daily. | | | - Repeat upper endoscopy in 1 week for retreatment. | | |ROLANDO SWANSON MD | | |04/21/2018 8:48:49 AM | | |This report has been signed electronically. | | |Number of Addenda: 0 | | |Note Initiated On: 04/21/2018 8:14 AM | | |CC Letter to: | | | HEMALATHA LAWRENCE PA-C | | + +------- -------+ + [...]
--- OUTSIDE RECORDS SUMMARY | ~2019-10-18 | XMS | Encounter Summary ---
Demographics + + + | Address | [address] | | | [place] [address] | + + + | Home Phone [...] [place] | | | | | [address] | | + + + + + Care Team Providers + +------+ + | Care Bilingual Call Center Representative Name | Role | Phone | + +------+ + | Hemalatha Lawrence PA-C | PCP | | + +------+ + Encounter Details +--------+ + + + + | Date | Type | Department | Care Team | Description | +--------+ + + + + | 11/18/ | MyChart | Cardiology General | | Imaging order | | 2018 | Encounter | at [facility] [address] | | | | | | [address] [place] Mailcode: | | | | | | [address] | | | | | | Health and Healing, | | | | | | Building | | | | | | Floor [place], [place] | | | | | | [address] | | | | | | [phone] | | | +--------+ + + + [...] 12/15/ | Office | Pre-operative | 2, [facility] [address] | | | 2019 | Visit | Medicine | [address] | | | | | | [place] [address] | | +--------+ + + + + [...] [place] | | | | | | [address] | | | | | | [phone] | | | | | | | | +--------+ + + + + documented as of this encounter Visit Diagnoses Not on filedocumented in this encounter"
--- OUTSIDE RECORDS SUMMARY | ~2019-10-18 | XMS | Encounter Summary ---
Demographics + + + | Address | [address] | | | [place] [address] | + + + | Home Phone | | + + + | Preferred Language | Unknown | + + + | Marital Status | | + + + | Confucianism Affiliation | NRP | + + + | Race | White | + + + | Ethnic Group | Not or | + + + Author + + + | Author | [facility] | + + + | Organization | [facility] | + + + | Address | Unknown | + + + | Phone | Unavailable | + + + Support + + + + + | Name | Relationship | Address | Phone | + + + + + | Pooja Valdez | ECON | [address] | | | | | [place] | | | | | [address] | | + + + + + Care Team Providers + +------+ + | Care Performance Solutions Specialist Name | Role | Phone | [...] 2017 | Encounter | Center at [facility] [address] | MD [address] | | | | | [address] | [place], [place] | | | | | Mailcode: Center | [address] | | | | | for Health and | [phone] | | | | | Healing, [address] | | | | | | [place], [place] | | | | | | [address] | | | | | | [phone] | | | +--------+ + + + [...] 12/15/ | Office | Pre-operative | 2, [facility] [address] | | | 2020 | Visit | Medicine | [address] | | | | | | [place] [address] | | +--------+ + + + + | 01/04/ | Procedure | Surgery | | | | 2019 | Pass | | | | +--------+ + + + + | 01/25/ | Office | Otolaryngology | Santos Valdivia, | | | 2019 | Visit | | [address] [facility] | | | | | | [address] | | | | | | [facility] [place] | | | | | | [address] | | | | | | [phone] | | | | | | | | +--------+ + + + + documented as of this encounter Visit Diagnoses Not on filedocumented in this encounter"
--- OUTSIDE RECORDS SUMMARY | ~2019-10-18 | XMS | Encounter Summary ---
Demographics + + + | Address | [address] | | | [place] [address] | + + + | Home Phone [...] [place] | | | | | [address] | | + + + + + Care Team Providers + +------+ + | Care Electrical Construction Project Manager Name | Role | Phone | [...] Pharmacy | | | | | | [address] | | | | | | Loop [place], [place] | | | | | | [address] | | | | | | [phone] | | | +--------+ + + + [...] 12/15/ | Office | Pre-operative | 2, [facility] [address] | | | 2019 | Visit | Medicine | [address] | | | | | | [place] [address] | | +--------+ + + + + [...] [place] | | | | | | [address] | | | | | | [phone] | | | | | | | | +--------+ + + + + documented as of this encounter Visit Diagnoses Not on filedocumented in this encounter"
--- OUTSIDE RECORDS SUMMARY | ~2019-10-18 | XMS | Encounter Summary ---
Demographics + + + | Address | [address] [facility] | | | [place] [address] | + + + | Home Phone [...] [place] | | | | | [address] | | + + + + + Care Team Providers + +------+ + | Care Speech And Hearing Clinic Director Name | Role | Phone | + +------+ + | Rian Sanchez MD | PCP | | + +------+ + Encounter Details +--------+ + + + + | Date | Type | Department | Care Team | Description | +--------+ + + + + | 05/13/ | Documentati | Digestive Health | Mary Gonsalez, | | | 2017 | on | [facility] [address] | ACNP [address] | | | | | [address] | [place], [place] | | | | | Mailcode: Center | [address] | | | | | for Health and | [phone] | | | | | Healing, [address] | | | | | | [place], [place] | | | | | | [address] | | | | | | [phone] | | | +--------+ + + + [...] | 12/15/ | Office | Pre-operative | [facility] [address] | | | 2019 | Visit | Medicine | [address] | | | | | | [place] [address] | | +--------+ + + + + | 01/04/ | Procedure | Surgery | | | | 2019 | Pass | | | | +--------+ + + + + | 01/25/ | Office | Otolaryngology | Santos Valdivia, | | | 2019 | Visit | | [address] | | | | | | [address] | | | | | | [place], [place] | | | | | | [address] | | | | | | [phone] | | | | | | | | +--------+ + + + + documented as of this encounter Visit Diagnoses Not on filedocumented in this encounter"
--- OUTSIDE RECORDS SUMMARY | ~2019-10-18 | XMS | Encounter Summary ---
Demographics + + + | Address | [address] | | | [place] [address] | + + + | Home Phone | | + + + | Preferred Language | Unknown | + + + | Marital Status | | + + + | Spiritism Affiliation | NRP | + + + | Race | White | + + + | Ethnic Group | Not or | + + + Author + + + | Author | [facility] | + + + | Organization | [facility] | + + + | Address | Unknown | + + + | Phone | Unavailable | + + + Support + + + + + | Name | Relationship | Address | Phone | + + + + + | Pooja Valdez | ECON | [address] | | | | | [place] | | | | | [address] | | + + + + + Care Team Providers + +------+ + | Care Net Software Developer Name | Role | Phone | + [...] 05/05/ | Telephone | Endoscopic | Bob Quinn | Telephone follow-up | | 2018 | | Procedural Unit at | [place], [address] | (05/04/18) | | | | [address] | [facility] | | | | | [address] | [place], [place] | | | | | Mailcode: [id number] | [address] | | | | | [facility] | [phone] | | | | | [address] [facility] [place] | | | | | | [address] | | | | | | [phone] | | | +--------+ + + + [...] | Office | Pre-operative | 2, [facility] [address] | | | 2019 | Visit | Medicine | [address] | | | | | | [place] [address] | | +--------+ + + + + | 01/04/ | Procedure | Surgery | | | | 2019 | Pass | | | | +--------+ + + + + | 01/25/ | Office | Otolaryngology | Santos Valdivia, | | | 2019 | Visit | | [address] | | | | | | [address] | | | | | | [place], [place] | | | | | | [address] | | | | | | [phone] | | | | | | | | +--------+ + + + + documented as of this encounter Visit Diagnoses Not on filedocumented in this encounter"
--- OUTSIDE RECORDS SUMMARY | ~2019-10-18 | XMS | Encounter Summary ---
Demographics + + + | Address | [address] | | | [place] [address] | + + + | Home Phone | | + + + | Preferred Language | Unknown | + + + | Marital Status | | + + + | Caodaism Affiliation | NRP | + + + [...] [place] | | | | | [address] | | + + + + + Care Team Providers + +------+ + | Care Shuttle Final Inspector Name | Role | Phone | [...] | | 2018 | | Center at [facility] [address] | [address] | | | | | [address] | [place], | | | | | Mailcode: [place] | [place] [address] | | | | | for Health and | [phone] | | | | | [facility] [address] | | | | | | [place], [place] | | | | | | [address] | | | | | | [phone] | | | +--------+ + + + [...] 12/15/ | Office | Pre-operative | [facility] [address] | | | 2019 | Visit | Medicine | [address] | | | | | | [place] [address] | | +--------+ + + + + | 01/04/ | Procedure | Surgery | | | | 2019 | Pass | | | | +--------+ + + + + | 01/25/ | Office | Otolaryngology | Santos Valdivia, | | | 2019 | Visit | | [address] | | | | | | [address] | | | | | | [place], [place] | | | | | | [address] | | | | | | [phone] | | | | | | | | +--------+ + + + + documented as of this encounter Visit Diagnoses Not on filedocumented in this encounter"
--- OUTSIDE RECORDS SUMMARY | ~2019-10-18 | XMS | Encounter Summary ---
Demographics + + + | Address | [address] [facility] [facility] | | | [place] [address] | + + + | Home Phone [...] [place] | | | | | [address] | | + + + + + Care Team Providers + +------+ + | Care Power Hair Clipper Name | Role | Phone | + +------+ + | Rian Sanchez MD | PCP | | + +------+ + Encounter Details +--------+ + + + + | Date | Type | Department | Care Team | Description | +--------+ + + + + | 05/12/ | Abstract | Digestive Health | Clinic, Surgery | | | 2017 | | [facility] [address] | | | | | | [address] | | | | | | Mailcode: Center | | | | | | for Health and | | | | | | Healing, Building [address] | | | | | | [place], [place] | | | | | | [address] | | | | | | [phone] | | | +--------+ + + + [...] Office | Pre-operative | 2, Andr[facility] [address] | | | 2020 | Visit | Medicine | [address] | | | | | | [place] [address] | | +--------+ + + + + [...] Rd | | | | | | [place], [place] | | | | | | [address] | | | | | | [phone] | | | | | | | | +--------+ + + + + documented as of this encounter Visit Diagnoses Not on filedocumented in this encounter"
--- OUTSIDE RECORDS SUMMARY | ~2019-10-18 | XMS | Encounter Summary ---
Demographics + + + | Address | [address] | | | [place] [address] | + + + | Home Phone [...] [place] | | | | | [address] | | + + + + + Care Team Providers + +------+ + | Care [place]stone Polisher Operator Name | Role | Phone | [...] [address] | | | | | [address] | [address] | | | | | Mailcode: Center | [place], [place] | | | | | for Health and | [address] | | | | | Healing, [address] | | | | | | [place], [place] | | | | | | [address] | | | | | | [phone] | | | +--------+ + + + [...] 2, [facility] [address] | | | 2020 | Visit | Medicine | [address] | | | | | | [place] [address] | | +--------+ + + + + [...] Rd | | | | | | [place] | | | | | | [address] | | | | | | [phone] | | | | | | | | +--------+ + + + + documented as of this encounter Visit Diagnoses Not on filedocumented in this encounter"
--- OUTSIDE RECORDS SUMMARY | ~2019-10-18 | XMS | Encounter Summary ---
Demographics + + + | Address | [address] | | | [place] [address] | + + + | Home Phone [...] [place] | | | | | [address] | | + + + + + Care Team Providers + +------+ + | Care Accounts Payable Or Receivable Clerk Name | Role | Phone | + +------+ + | No Pcp Per Patient | PCP | Unavailable | + +------+ + Reason for Visit + + + | Reason | Comments | + + + | Follow-up visit | Pt staes c/o nosebleeds in left nasal lately. | + + + Office Visit - E/M Services (Routine) +--------+--------+ + + + + | Status | Reason | Specialty | Diagnoses / | Referred By | Referred To | | | | | Procedures | Contact | Contact | +--------+--------+ + + + + | Closed | | Otolaryngolog | Diagnoses | Fljuan, | Aquiles, | | | | y | chronic | Tavo Briscoe, | Santos Plata MD | | | | | sinusitis | | [address] | | | | | Procedures | [place] | [address] | | | | | nasal | HEAD & NECK | [place], [place] | | | | | endoscopy | [facility] [address] | [address] | | | | | | [address] | Phone: | | | | | | [address] | [phone] | | | | | | [place], | Fax: | | | | | | [place] [address] | [phone] | | | | | | Phone: | | | | | | | [phone] | | | | | | | Fax: | | | | | | | [phone] | | +--------+--------+ + + + + Encounter Details +--------+---------+ + + + | Date | Type | Department | Care Team | Description | +--------+---------+ + + + | 07/13/ | Office | Otolaryngology | Santos Kwan, | Chronic Sphenoidal | | 2005 | Visit | Sinus Services [address] | [address] | Sinusitis (Primary | | | | [address] | [place], [place] | Dx); Atypical Face | | | | Mailcode: OP01 | [address] | Pain; Chronic | | | | [facility] | [phone] | Maxillary Sinusitis | | | | [place], [place] | | | | | | [address] | | | | | | [phone] | | | +--------+---------+ + + + [...] of this encounter Progress Notes Santos Kwan Sherlyn - 07/13/2006 3:11 PM PDTFormatting of this note might be different from t he original. HISTORY: Mynor Valdez is a 36 y.o. male who presents to the [facility] for fol low up of Chronic rhinosinusitis. He is feeling well without significant difficulties. He reports that his headaches have improved, but are still present. No associated symptoms are present. He denies abnormal discharge. He does report a continued problem with left sided epistaxis that is controlled with pressure. He has stopped the flonase due to the epistaxi s. Current outpatient prescriptions: FLONASE 50 MCG/ACTUATION NASAL SPRAY AEROSOL inhale 2 spray in each nostril by nasal route once daily PHYSICAL EXAM: Ear, nose, and throat exam reveals a pleasant, well-developed, well-nourish ed patient, in no apparent distress. Voice quality is within normal limits. Anterior rhinos copy reveals mucosa with no significant signs of erythema or inflammation. No polyps or pur ulence are noted. External auditory canals and tympanic membranes appear normal. Oral cavit y and oropharynx reveals no mucosal lesion. The pharyngeal mucosa reveals no lesions. Lips and tongue are within normal limits. Neck reveals no mass, adenopathy, or thyromegaly. Sa livary glands are normal to palpation. PROCEDURE: Diagnostic Nasal Endoscopy Anesthesia: Lidocaine 4% topical anesthetic was placed. Description of Procedure: A rigid endoscope was utilized to evaluate the sinonasal cavitie s, mucosa, sinus ostia and turbinates. Overall, no significant mucosal inflammation is obse rved. The anterior head of the middle turbinates are scarred laterally, bilaterally. Unabl e to see the sphenoid ostia on the right. RADIOGRAPH EVALUATION: The right sphenoid sinus is opacified with mucosal disease in the r ight maxillary. Lateralization of the middle turbinates are seen. ASSESSMENT: Chronic rhinosinusitis with right sphenoid opaciification, right maxillary dise ase and right middle turbinate lateralization. Ongoing headaches. PLAN: Discussed the options with the patient, including observation vs. revision sinus osiel leopoldo. The aim of surgery would be to open the right sphenoid sinus to try to relieve the he adaches. The possiblity that surgery does not help with the headaches was discussed. The p matias will discuss surgery with his , and our office will contact him regarding possibl e scheduling of revision sinus surgery. The role of nasal/sinus surgery was discussed. Risks including anesthetic, bleeding, infec tion, olfactory dysfunction, recurrence of symptoms, and injury to associated structures inc luding the orbit and cranial cavity, among others, were discussed and all questions answered . The need for postoperative care including debridement and ongoing medical management was discussed. After considering risks, benefits, and alternatives, surgical management was estefany cted. Santos Kwan M.D., M.P.H., F.A.C.S. Director, [facility] Professor and Chief, Rhinology and Sinus Surgery Department of Otolaryngology/Head and Neck Surgery documented in this encou nter Plan of Treatment +--------+ + + + + | Date | Type | Specialty | Care Team | Description | +--------+ + + + + | 12/15/ | Office | Pre-operative | 2, [address] | | | 2019 | Visit | Medicine | [address] | | | | | | [place] [address] | | +--------+ + + + + [...] Rd | | | | | | [place], [place] | | | | | | [address] | | | | | | [phone] | | | | | | | | +--------+ + + + + + + +--------+ + + | Name | Type | Priori | Associated Diagnoses | Order Schedule | | | | ty | | | + + +--------+ + + | NASAL ENDOSCOPY, | Procedures | Routin | Chronic Sphenoidal | Ordered: 07/13/2006 | | DIAGNOSTIC | | e | Sinusitis Atypical | | | | | | Face Pain Chronic | | | | | | Maxillary Sinusitis | | + + +--------+ + + documented as of this encounter Visit Diagnoses + + | Diagnosis | + + | Chronic sphenoidal sinusitis - Primary | + + | Atypical face pain | + + | Chronic maxillary sinusitis | + + documented in this encounter"
--- OUTSIDE RECORDS SUMMARY | ~2019-10-18 | XMS | Encounter Summary ---
Demographics + + + | Address | [address] | | | [place] [address] | + + + | Home Phone | | + + + | Preferred Language | Unknown | + + + | Marital Status | | + + + | Adventism Affiliation | NRP | + + + [...] [place] | | | | | [address] | | + + + + + Care Team Providers + +------+ + | Care Demand Generation Manager Name | Role | Phone | [...] | obesity, BMI | [place], [place] | [place], [place] | | | | | unknown | [address] | [address] | | | | | (HCC) | Phone: | Phone: | | | | | Hyperlipidem | [phone] | [phone] | | | | | ia, | Fax: | Fax: | | | | | unspecified | [phone] | [phone] | | | | | hyperlipidem | [...] | | 2017 | | Center at [facility] [address] | [address] | | | | | [address] | Ave [place], [place] | | | | | Mailcode: [place] | [address] | | | | | for Health and | [phone] | | | | | [place] [address] | | | | | | [place], [place] | | | | | | [address] | | | | | | [phone] | | | +--------+ + + + [...] | 2, [facility] [address] | | | 2020 | Visit | Medicine | [address] | | | | | | [place] [address] | | +--------+ + + + + [...] Rd | | | | | | [place], [place] | | | | | | [address] | | | | | | [phone] | | | | | | | [...]
--- OUTSIDE RECORDS SUMMARY | ~2019-10-18 | XMS | Encounter Summary ---
Demographics + + + | Address | [address] | | | [place] [address] | + + + | Home Phone | | + + + | Preferred Language | Unknown | + + + | Marital Status | | + + + | Restorationism Affiliation | NRP | + + + [...] [place] | | | | | [address] | | + + + + + Care Team Providers + +------+ + | Care Set Up Mechanic Heading Machines Name | Role | Phone | + [...] | | 2017 | | Preventive at [facility] | CHADWICK Am[address] | regarding outside | | | | [address] | [address] [place], | order for Echos ) | | | | Mailcode: CH9A | [place] [address] | | | | | [facility] | [phone] | | | | | and Kailyn, | | | | | | [address] | | | | | | [place], [place] | | | | | | [address] | | | | | | [phone] | | | +--------+ + + + [...] | Pre-operative | 2, [facility] [address] | | | 2019 | Visit | Medicine | [address] | | | | | | [place] [address] | | +--------+ + + + + [...] Rd | | | | | | [place] | | | | | | [address] | | | | | | [phone] | | | | | | | | +--------+ + + + + documented as of this encounter Visit Diagnoses Not on filedocumented in this encounter"
--- OUTSIDE RECORDS SUMMARY | ~2019-10-18 | XMS | Encounter Summary ---
Demographics + + + | Address | [address] | | | [place] [address] | + + + | Home Phone [...] [place] | | | | | [address] | | + + + + + Care Team Providers + +------+ + | Care Retirement Administrator Name | Role | Phone | [...] | 2017 | Visit | Center at [facility] [address] | [facility] [address] | BMI of 40.0-44.9, | | | | [address] | Ave [place], [place] | adult (HCC) (Primary | | | | Mailcode: Center | [address] | Dx); Essential | | | | for Health and | | hypertension; JOSE on | | | | Healing, Building [address] | | CPAP; Insulin | | | | [place], [place] | | dependent diabetes | | | | [address] | | mellitus (HCC); | | | [...] intake on this kian daily. -Call your corporate trainer this week to get an appointment regarding [...] follow directions on the box *enemas For exterminator termite issues, we recommend the use of MiraLax only. It has the least retirement Effects on the colon You can use [...] s via mouth., Disp: , Rfl: iron gly,[id number]-ux-gahyrjsf 150 mg iron-200 mg-250 mcg oral tablet, [...] supplements today 4.Gastric Ulcer Prevention -Take acid public relations counselor (omeprazole) for first 3 mos, then wean [...] -He has not reached out to his corporate trainer yet. Pt instructed to do so DONNIE, [...] to plan and will call and/or send Biscotti message if any issues. Start time 1020, end time 1050. I spent a total of 30 minutes face to face with this patie nt. Over 50% of visit was in counseling. Kaylee GARRISON Bariatric Surgery Nurse Practitioner [facility] | [address] | [place], [place] | [address] | documented in th is encounter Plan of Treatment +--------+ + + + + | Date | Type | Specialty | Care Team | Description | +--------+ + + + + | 12/15/ | Office | Pre-operative | 2 [facility] [address] | | | 2019 | Visit | Medicine | [address] | | | | | | [place] [address] | | +--------+ + + + + [...] Rd | | | | | | [place], [place] | | | | | | [address] | | | | | | [phone] | | | | | | | [...] + + | Insulin dependent diabetes mellitus ([facility]) Type II or unspecified type diabetes | | mellitus without mention of complication, not stated as uncontrolled | + + | Other hyperlipidemia | + + | Acute post-operative pain | + + documented in this encounter
--- OUTSIDE RECORDS SUMMARY | ~2019-10-18 | XMS | Encounter Summary ---
Demographics + + + | Address | [address] | | | [place] [address] | + + + | Home Phone [...] [place] | | | | | [address] | | + + + + + Care Team Providers + +------+ + | Care Building Custodial Supervisor Name | Role | Phone | + +------+ + | Hemalatha Lawrence PA-C | PCP | | + +------+ + Encounter Details +--------+ + + + + | Date | Type | Department | Care Team | Description | +--------+ + + + + | 11/23/ | MyChart | Digestive Health | Mary Gonsalez, | RE: CPAP compliance | | 2018 | Encounter | Center at [facility] [address] | AC[address] | | | | | [address] | [place], [place] | | | | | Mailcode: Center | [address] | | | | | for Health and | [phone] | | | | | [facility] [address] | | | | | | [place], [place] | | | | | | [address] | | | | | | [phone] | | | +--------+ + + + [...] | | | | | [place] [address] | | +--------+ + + + + | 02/27/ | Procedure | Surgery | | | | 2019 | Pass | | | | +--------+ + + + + | 01/25/ | Office | Otolaryngology | Santos Valdivia, | | 2019 | Visit | | [address] | | | | | | [address] | | | | | | [place], [place] | | | | | | [address] | | | | | | [phone] | | | | | | | | +--------+ + + + + documented as of this encounter Visit Diagnoses Not on filedocumented in this encounter"
--- OUTSIDE RECORDS SUMMARY | ~2019-10-18 | XMS | Encounter Summary ---
Demographics + + + | Address | [address] | | | [place] [address] | + + + | Home Phone [...] [place] | | | | | [address] | | + + + + + Care Team Providers + +------+ + | Care Electronics Supervisor Name | Role | Phone | + +------+ + | Hemalatha Lawrence PA-C | PCP | | + +------+ + Encounter Details +--------+ + + + + | Date | Type | Department | Care Team | Description | +--------+ + + + + | 03/18/ | MyChart | Digestive Health | Arvin Altamirano, | RE: EGD | | 2017 | Encounter | Center at [facility] [address] | MD [address] | | | | | [address] | [place], [place] | | | | | Mailcode: Center | [address] | | | | | for Health and | [phone] | | | | | Healing, [address] | | | | | | [place], [place] | | | | | | [address] | | | | | | [phone] | | | +--------+ + + + [...] Rd | | | | | | [place] [address] | | +--------+ + + + + | 01/04/ | Procedure | Surgery | | | | 2019 | Pass | | | | +--------+ + + + + | 01/25/ | Office | Otolaryngology | Santos Valdivia, | | | 2019 | Visit | | [address] [facility] | | | | | | [address] | | | | | | [place], [place] | | | | | | [address] | | | | | | [phone] | | | | | | | | +--------+ + + + + documented as of this encounter Visit Diagnoses + + | Diagnosis | + + | Dysphagia, unspecified type - Primary | + + | S/P laparoscopic sleeve gastrectomy | + + | S/P gastric bypass Bariatric surgery status | + + documented in this encounter"
--- OUTSIDE RECORDS SUMMARY | ~2019-10-18 | XMS | Encounter Summary ---
Demographics + + + | Address | [address] | | | [place] [address] | + + + | Home Phone [...] [place] | | | | | [address] | | + + + + + Care Team Providers + +------+ + | Care Customer Service Administrator Name | Role | Phone | + +------+ + PCP | Unavailable | + +------+ + Encounter Details +--------+ + + + + | Date | Type | Department | Care Team | Description | +--------+ + + + + | // | Office | | Note, Outpatient | Progress Note | | 2006 | Visit-Trans | | Clinic | | | | cribed | | [...] as of this encounter Progress Notes Interface, Senior Benefits Analyst In - 03/24/2006 2:09 AM PDT [id number] DELMA PAULSON [id number] Clinic Date: 03/09/2006 Clinic: Chief Complaint: Followup of chronic rhinosinusitis and intracerebral bleed. History: Mr. Valdez presents for followup today. He has noted somewhat steady improvement in his headaches, and he was discharged from the hospital. He has not been febrile. He has not had change in vision. He has not had clear fluid leaking from the nose. He states his headaches are still constant but do seem to be improving. He continues to use topical nasal steroid spray daily. Physical Examination: General: He is afebrile, well-developed, and well-nourished in no apparent distress. HEENT: No clear fluid is draining from the nares. His voice quality is within normal limits. Anterior rhinoscopy reveals evidence of previous surgery with mucosal erythema seen. Procedure: Diagnostic nasal endoscopy. Anesthesia: Topical 4% lidocaine. Description of Procedure: A 4-mm 30-degree endoscope was used for endoscopy. This does reveal somewhat hypertrophied and lateralized middle turbinates bilaterally. I do not see any signs of infection. I am unable to see into the ethmoid cavity on either side as a result of the lateralized turbinates. I do not see any significant crusting on today's examination. Assessment and Plan: His headaches seem to continue to improve on a weekly basis. He does have evidence of ongoing chronic rhinosinusitis and lateralization of the middle turbinates which may need to be addressed at some point. At this stage, I have reinforced the need to use the topical steroid spray on a daily basis to help control inflammation. He is going to be seeing Neurosurgery in followup tomorrow, and then I would like to see him in concert with Neurosurgery at his next followup appointment. He is also going to be seeing Dr. Dietz in approximately a week or so. He will call at any time with any difficulties. Santos Kwan MD, MPH, FACS Director, [facility] Professor of Otolaryngology/Head and Neck Surgery [facility] / [id number] / [id number] / [id number] / [id number] Electronically signed by Santos Kwan 03-23-2006 09:01:19 AM documented i n this encounter Plan of Treatment +--------+ + + + + | Date | Type | Specialty | Care Team | Description | +--------+ + + + + | 12/15/ | Office | Pre-operative | 2, [facility] [address] | | | 2020 | Visit | Medicine | [address] | | | | | | [place] [address] | | +--------+ + + + + [...] Rd | | | | | | [place] | | | | | | [address] | | | | | | [phone] | | | | | | | | +--------+ + + + + documented as of this encounter Visit Diagnoses Not on filedocumented in this encounter"
--- OUTSIDE RECORDS SUMMARY | ~2019-10-18 | XMS | Encounter Summary ---
Demographics + + + | Address | [address] | | | [place] [address] | + + + | Home Phone [...] [place] | | | | | [address] | | + + + + + Care Team Providers + +------+ + | Care Accounting Machine Servicer Name | Role | Phone | + +------+ + | Hemalatha Lawrence PA-C | PCP | | + +------+ + Encounter Details +--------+ + + + + | Date | Type | Department | Care Team | Description | +--------+ + + + + | 07/19/ | MyChart | Digestive Health | Key Castellano, | RE: food | | 2018 | Encounter | Center at [facility] [address] | [address] | | | | | [address] | [facility] [address] | | | | | Mailcode: Center | [place], [place] | | | | | for Health and | [address] | | | | | Healing, [address] | | | | | | [place], [place] | | | | | | [address] | | | | | | [phone] | | | +--------+ + + + [...] Rd | | | | | | [place] [address] | | +--------+ + + + + | 01/04/ | Procedure | Surgery | | | | 2019 | Pass | | | | +--------+ + + + + | 01/25/ | Office | Otolaryngology | Santos Valdiiva, | | | 2019 | Visit | | [address] | | | | | | [address] | | | | | | [place], [place] | | | | | | [address] | | | | | | [phone] | | | | | | | | +--------+ + + + + documented as of this encounter Visit Diagnoses Not on filedocumented in this encounter"
--- OUTSIDE RECORDS SUMMARY | ~2019-10-18 | XMS | Encounter Summary ---
Demographics + + + | Address | [address] | | | [place] [address] | + + + | Home Phone | | + + + | Preferred Language | Unknown | + + + | Marital Status | | + + + | Evangelical Affiliation | NRP | + + + [...] [place] | | | | | [address] | | + + + + + Care Team Providers + +------+ + | Care Pst Supervisor Name | Role | Phone | [...] 2018 | on | Center at [facility] [address] | AC[address] | | | | | [address] | [place] [facility] [place] | | | | | Mailcode: Center | [address] | | | | | for Health and | [phone] | | | | | Healing, Building [address] | | | | | | [place], [place] | | | | | | [address] | | | | | | [phone] | | | +--------+ + + + [...] Office | Pre-operative | 2, [address] | | | 2019 | Visit | Medicine | [address] | | | | | | [place] [address] | | +--------+ + + + + [...] [place] | | | | | | [address] | | | | | | [phone] | | | | | | | | +--------+ + + + + documented as of this encounter Visit Diagnoses Not on filedocumented in this encounter"
--- OUTSIDE RECORDS SUMMARY | ~2019-10-18 | XMS | Encounter Summary ---
Demographics + + + | Address | [address] | | | [place] [address] | + + + | Home Phone [...] [place] | | | | | [address] | | + + + + + Care Team Providers + +------+ + | Care Reconciliation Clerk Name | Role | Phone | [...] | | | [address] | [place], [place] | Maxillary Sinusitis | | | | Mailcode: OP01 | [address] | | | | | [facility] | [phone] | | | | | [place], [place] | | | | | | [address] | | | | | | [phone] | | | +--------+---------+ + + + [...] Pre-operative | 2, [facility] [address] | | | 2019 | Visit | Medicine | [address] | | | | | | [place] [address] | | +--------+ + + + + [...] Rd | | | | | | [place], [place] | | | | | | [address] | | | | | | [phone] | | | | | | | [...]
--- OUTSIDE RECORDS SUMMARY | ~2019-10-18 | XMS | Encounter Summary ---
Demographics + + + | Address | [address] | | | [place] [address] | + + + | Home Phone [...] [place] | | | | | [address] | | + + + + + Care Team Providers + +------+ + | Care Hydro Pneumatic Tester Name | Role | Phone | + [...] 2018 | Encounter | Center at [facility] [address] | AC[address] | | | | | [address] | [place], [place] | | | | | Mailcode: Center | [address] | | | | | for Health and | [phone] | | | | | [facility] 2 | | | | | | [place], [place] | | | | | | [address] | | | | | | [phone] | | | +--------+ + + + [...] | | | | | [place] [address] | | +--------+ + + + + | 02/27/ | Procedure | Surgery | | | | 2019 | Pass | | | | +--------+ + + + + | 01/25/ | Office | Otolaryngology | Santos Valdivia, | | 2019 | Visit | | [address] | | | | | | [address] | | | | | | [place], [place] | | | | | | [address] | | | | | | [phone] | | | | | | | | +--------+ + + + + documented as of this encounter Visit Diagnoses Not on filedocumented in this encounter"
--- OUTSIDE RECORDS SUMMARY | ~2019-10-18 | XMS | Encounter Summary ---
Demographics + + + | Address | [address] | | | [place] [address] | + + + | Home Phone [...] [place] | | | | | [address] | | + + + + + Care Team Providers + +------+ + | Care Senior Dynamics Crm Developer Name | Role | Phone | + +------+ + | Hemalatha Lawrence PA-C | PCP | | + +------+ + Encounter Details +--------+ + + + + | Date | Type | Department | Care Team | Description | +--------+ + + + + | 09/06/ | MyChart | Digestive Health | | Bariatric online | | 2018 | Encounter | Center at [facility] [address] | | support group | | | | [address] | | | | | | Mailcode: Center | | | | | | for Health and | | | | | | Healing, [address] | | | | | | [place], [place] | | | | | | [address] | | | | | | [phone] | | | +--------+ + + + [...] Office | Pre-operative | 2, [address] | | | 2020 | Visit | Medicine | [address] | | | | | | [place] [address] | | +--------+ + + + + [...] Rd | | | | | | [place] | | | | | | [address] | | | | | | [phone] | | | | | | | | +--------+ + + + + documented as of this encounter Visit Diagnoses Not on filedocumented in this encounter"
--- OUTSIDE RECORDS SUMMARY | ~2019-10-18 | XMS | Encounter Summary ---
Demographics + + + | Address | [address] | | | [place] [address] | + + + | Home Phone | | + + + | Preferred Language | Unknown | + + + | Marital Status | | + + + | Judaism Affiliation | NRP | + + + [...] [place] | | | | | [address] | | + + + + + Care Team Providers + +------+ + | Care Central Supply Assistant Name | Role | Phone | [...] [facility] [address] | | | 2019 | Visit | Medicine | [address] | | | | | | [place] [address] | | +--------+ + + + + [...] Rd | | | | | | [place], [place] | | | | | | [address] | | | | | | [phone] | | | | | | | | +--------+ + + + + documented as of this encounter Visit Diagnoses Not on filedocumented in this encounter"
--- OUTSIDE RECORDS SUMMARY | ~2019-10-18 | XMS | Encounter Summary ---
Demographics + + + | Address | [address] | | | [place] [address] | + + + | Home Phone [...] [place] | | | | | [address] | | + + + + + Care Team Providers + +------+ + | Care Bell Hole Digger Name | Role | Phone | + [...] | | | Ave Mailcode: [address] | [place], [place] | | | | | [facility] | [address] | | | | | and Healing, | [phone] | | | | | [facility] | | | | | | Floor [place], [place] | | | | | | [address] | | | | | | [phone] | | | +--------+ + + + [...] [facility] [address] | | | 2020 | Visit | Medicine | [address] | | | | | | [place] [address] | | +--------+ + + + + [...] Rd | | | | | | [place] | | | | | | [address] | | | | | | [phone] | | | | | | | | +--------+ + + + + documented as of this encounter Visit Diagnoses Not on filedocumented in this encounter"
--- OUTSIDE RECORDS SUMMARY | ~2019-10-18 | XMS | Encounter Summary ---
Demographics + + + | Address | [address] | | | [place] [address] | + + + | Home Phone [...] [place] | | | | | [address] | | + + + + + Care Team Providers + +------+ + | Care Engagement Specialist Name | Role | Phone | + +------+ + | Hemalatha Lawrence PA-C | PCP | | + +------+ + Encounter Details +--------+ + + + + | Date | Type | Department | Care Team | Description | +--------+ + + + + | 05/26/ | Documentati | [facility]W at [facility] | [place], | | | 2018 | on | [place] [address] | MD [address] | | | | | [address] Mailcode: | [address] | | | | | [facility] | [place], [place] | | | | | Health and Healing, | [address] | | | | | [facility] 2 | [phone] | | | | | [place], [place] | (Fax) | | | | | [address] | | | | | | [phone] | | | +--------+ + + + [...] Rd | | | | | | [place] [address] | | +--------+ + + + + [...] [place] | | | | | | [address] | | | | | | [phone] | | | | | | | | +--------+ + + + + documented as of this encounter Visit Diagnoses Not on filedocumented in this encounter"
--- OUTSIDE RECORDS SUMMARY | ~2019-10-18 | XMS | Encounter Summary ---
Demographics + + + | Address | [address] | | | [place] [address] | + + + | Home Phone [...] [place] | | | | | [address] | | + + + + + Care Team Providers + +------+ + | Care Office Machines Teacher Name | Role | Phone | [...] | Pain | Diagnoses | Gonsalez, | Financial Specialist Psych | | | | Management | Morbid | RIZWANA HernandezP | [address] | | | | | obesity with | [address] | [address] | | | | | BMI of | [address] | Mailcode: | | | | | 40.0-44.9, | [place], [place] | [address] | | | | | adult (HCC) | [address] | for Health | | | | | Insulin | Phone: | and Healing, | | | | | dependent | [phone] | Building 1, | | | | | diabetes | Fax: | 15th Floor | | | | | mellitus | [phone] | [place], [place] | | | | | (HCC) | | [address] | | | | | Essential | | Phone: | | | | | hypertension | | [phone] | | | | | | | Fax: | | | | | Hyperlipidem | | [phone] | | | | | [place], | [...] | | | | | | | [place] | | | | | | | PSYCHIATRIC | | | | | | | DIAGNOSTIC | | | | | | | EVAL, NO MED | | | | | | | [facility] [place] | | | | | | | PSYCH TSTNG | | | | | | | PSYCH/PHYS | | | +--------+---------+ + + + + Encounter Details +--------+---------+ + + + | Date | Type | Department | Care Team | Description | +--------+---------+ + + + | 09/03/ | Office | [facility] at [facility] | Rian Chapman, | Morbid obesity with | | 2016 | Visit | 15 [address] | PhD [address] | BMI of 40.0-44.9, | | | | [address] Mailcode: | Ave [place], [place] | adult ([facility]) (Primary | | | | [facility] Center for | [address] | Dx); Major | | | | Health and Healing, | [phone] | depressive disorder, | | | | Building | | recurrent, in | | | | Floor [place], [place] | | partial remission | | | | [address] | | ([facility]); Insulin | | | | [phone] | | dependent diabetes | | | | | | mellitus ([facility]) | +--------+---------+ + + + [...] Name: Mynor Valdez : 1970 Medical Record: [id number] Age:47 y.o. Weight: 328 lbs BMI: 42 Identifying Information: Mynor Valdez is a 47 y.o. male who lives with his , her victorina short and his daughter in [place], [place]. He was referred for psychological evaluation [...] lot of walking. He reported sharing the [employer] chores. For enjoyment the patient does family activities, home projects and uses [employer]. He is socially active with family. He [...] Education and Profession: G. 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 Current Life Stressors: He described normal [...] to improve his consistency with following the acoustic sensor operator's recommendations, especially eating more consistently throughout his work day. 4. He is urged to establish a clear routine for physical activity that he can begin now an d continue after surgery. 5. He should continue to participate in a Bariatric Surgery Support Group. Total time I spent was approximately 50 minutes rroo-nu-kaoa with the patient and approxima tely 1 hour 45 minutes of jlm-dmks-in-face testing, interpreting and synthesizing results. Rian Chapman, PhD [facility] 15TH FLOOR [address] [facility] Mail Code: [address] [place] [address] documented in this en counter Plan of Treatment +--------+ + + + + | Date | Type | Specialty | Care Team | Description | +--------+ + + + + | 12/15/ | Office | Pre-operative | [facility] [address] | | | 2019 | Visit | Medicine | [address] | | | | | | [place] [address] | | +--------+ + + + + [...] Rd | | | | | | [place], [place] | | | | | | [address] | | | | | | [phone] | | | | | | | | +--------+ + + + + documented as of this encounter Visit Diagnoses + + | Diagnosis | + + | Morbid obesity with BMI of 40.0-44.9, adult ([facility]) - Primary | + + | Major depressive disorder, recurrent, in partial remission ([facility]) Major depressive | | disorder, recurrent episode, in partial or unspecified remission | + + | Insulin dependent diabetes mellitus (HCC) Type II or unspecified type diabetes | | mellitus without mention of complication, not stated as uncontrolled | + + documented in this encounter"
--- OUTSIDE RECORDS SUMMARY | ~2019-10-18 | XMS | Encounter Summary ---
Demographics + + + | Address | [address] | | | [place] [address] | + + + | Home Phone | | + + + | Preferred Language | Unknown | + + + | Marital Status | | + + + | Yazdanism Affiliation | NRP | + + + [...] [place] | | | | | [address] | | + + + + + Care Team Providers + +------+ + | Care Matrix Worker Name | Role | Phone | [...] | [facility] | | | with AREA CLEANER | | | | [address] | | | | | | | [address] | | | | | | | Mailcode: | | | | | | | [place] for | | | | | | | Health and | | | | | | | Healing, | | | | | | | Building 2 | | | | | | | [place], [place] | | | | | | | [address] | | | | | | | Phone: | | | | | | | [phone] | | | | | | | Fax: | | | | | | | [phone] | +--------+ + + + + + Encounter Details +--------+---------+ + + + | Date | Type | Department | Care Team | Description | +--------+---------+ + + + | 05/13/ | Office | Digestive Health | PetTonia lyman, DANIEL | S/P gastric bypass | | 2018 | Visit | Center at [facility] [address] | [address] | (Primary Dx); | | | [address] | [address] [place], | Impaired intestinal | | | | Mailcode: [place] | [place] [address] | absorption | | | | for Health and | [phone] | | | | | [facility], [facility] 2 | | | | | | [place], [place] | | | | | | [address] | | | | | | [phone] | | | +--------+---------+ + + + [...] + + + | Blood Pressure | 114/72 | 05/13/2018 10:16 AM | | | | | PDT | | + + + + + | Pulse | 58 | 05/13/2018 10:16 AM | | | | | PDT | | + + + + + | Temperature | 36.8 C (98.3 F) | 05/13/2018 10:16 AM | | | | | PDT | | + + + + + | Respiratory Rate | 18 | 05/13/2018 10:16 AM | | | | | PDT | | + + + + + | Oxygen Saturation | - | - | | + + + + + | Inhaled Oxygen | - | - | | | Concentration | | | | + + + + + | Weight | 115.7 kg (255 lb) | 05/13/2018 10:16 AM | | | | | PDT | | + + + + + | Height | 188 cm (6' 2") | 05/13/2018 10:16 AM | | | | | PDT | | + + + + + | Body Mass Index | 32.74 | 05/13/2018 10:16 AM | | | [...] of this encounter Patient Instructions Patient Instructions Tonia Greenberg ACNP - 05/13/2018 10:20 AM PDTLabs on the 3rd floor today . I will mychart you with the results if they are abnormal. Next appointment in 2-3 months for your 6 month post op visit. Mychart us with any questions or concerns. documented in this encounter Progress Notes Tonia Greenberg ACNP - 05/13/2018 10:20 AM PDT BARIATRIC SURGERY FOLLOW-UP ID: Mynor Valdez is a 48 y.o. patient who underwent a Sanford en y gastric bypass on [address] Altamirano. The patient is now about 4 months post operative. Last seen in clinic . He has struggled with nausea, inability to tolerate PO and pain. He was taken for EGD 04/21/2018 which showed severe stenosis thus underwent dilation. Subjective: Planned for another EGD with dialtion 05/25 Feeling much better, meeting fluid and protein goals protien shakes, gatorade zero, water Frozen veggies smart ones with meatloaf Grilled chicken and corn cob Stairs at work and gym joined the gym and starting Taking Vitamins Takes daily PPI and no symptoms with PPI. If forgets PPI, then will get some GERD GI recommended to take 40mg BID Weight at time of surgery : 313--> 255 (total 58 lb weight loss) BP 114/72 | Pulse 58 | Temp (Src) 36.8 C (98.3 F) (Oral) | RR 18 | Ht 1.88 m (6' 2") | Wt 115.7 kg (255 lb) | BMI 32.74 kg/(m^2) History: Past Medical History: Diagnosis Date Anxiety Depression GERD (gastroesophageal reflux disease) HBP (high blood pressure) Headache High cholesterol Migraine Numbness and tingling JOSE on CPAP Thyroid activity decreased Type 2 diabetes mellitus (HCC) Past Surgical History Procedure Laterality Date Ankle fracture surgery 2001 Hand surgery Left 2006 Sinus surgery 2006 Sinus surgery 2013 Lap gastric byp, and sanford-en-y gastroenterostomy w/ sanford limb 150 cm or less 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 HR 73. NONSPECIFIC INTRAVENTRICULAR CONDUCTION DELAY. LEFT V ENTRICULAR HYPERTROPHY- ABNORMAL ECG (I personally reviewed tracing) Records reviewed from Care Everywhere and summarized below: NM Myocardial Perfusion Study with Exercise ([facility]) 12/15/2010 - HI STORY: Chest pain.Abnormal EKG. FINDINGS: No prior [...] Sister High blood pressure Sister Obesity Brother Allergies Allergies Allergen Reactions Actos [Pioglitazone Hcl] [...] s via mouth., Disp: , Rfl: iron gly,[id number] 150 mg iron-200 mg-250 mcg oral tablet, [...] daily., Disp: 60 t ablet, Rfl: 0 ursodiol 250 mg oral tablet, Take 1 tablet by mouth two times daily. Start taking this 2 we eks after surgery, Disp: 60 tablet, Rfl: 5 Bariatric Medications: MVI with iron twice daily: yes Calcium citrate 1500mg daily: yes Vitamin D 1000 mg daily : yes B12 500mcg SL daily or monthly shot: yes H2RB/PPI daily: yes Actigall/ ursodiol 300 BID: yes Narcotics: no ROS: All review of systems negative except what is noted in HPI GI Symptoms: Nausea: None Dysphagia: none Vomiting: none Heartburn: <1 time per week Abd Pain: None Constipation: None Diarrhea: None Physical Exam General: Alert, oriented, NAD Respiratory: Breathing comfortably Cardiovascular: RRR Abdomen: soft, non tender, non distended, lap incisions sites are without drainage, surroun ding erythema or induration. Extremities: warm, well perfused, no edema noted Assessment/Plan: Mynor Valdez is a 48 y.o. male who is 4 months S/P Sanford en y gastric bypass. # S/p Sanford en y gastric bypass -continue with protein goal of 60-80g/day -continue with fluid intake goal of at least 64oz/day -Discussed diet choices, healthy foods, ways to increase protein and iron -Discussed daily exercise and types of exercises # Risk for B12 deficiency, calcium malabsorption, protein malabsorption, vitamin d deficiie ncs and iron deficiencies -Labs today: CBC, CMP, B12, PTH, vit D, ferritin will notify of results and replace as nee ded -continue with vitamin supplements as directed # GERD Continue taking PPI as directed. Encouraged to take PPI BID as per GI recommendations. # Gallstone Prevention -Use ursodiol ( Actigall) for first 6 months after surgery, it prevents gallstones. Return to bariatric clinic for his 6 month post op visit See your primary care provider for adjusting any other medications. Call if any abdominal pain, n/v/d or other issues. Pt agrees to plan and will call and/or send Wear message if any issues. Start time 1050, end time 1120. I spent a total of 30 minutes face to face with this patie nt. Over 50% of visit was in counseling. Tonia Greenberg MSN, AG-ACNP, SPORTS ANCHOR Bariatric Surgery Nurse Practitioner [facility] | [address] | [place], [place] | [address] | documented in this enco unter Plan of Treatment +--------+ + + + + | Date | Type | Specialty | Care Team | Description | +--------+ + + + + | 12/15/ | Office | Pre-operative | 2, Andrés Chambers [address] | | | 2020 | Visit | Medicine | [facility] [address] | | | | | | [place] [address] | | +--------+ + + + + | 01/04/ | Procedure | Surgery | | | | 2019 | Pass | | | | +--------+ + + + + | 01/25/ | Office | Otolaryngology | Santos Valdivia, | | | 2019 | Visit | | [address] | | | | | | [address] | | | | | | [place], [place] | | | | | | [address] | | | | | | [phone] | | | | | | | | +--------+ + + + + documented as of this encounter Results VITAMIN B1, WHOLE BLOOD (05/13/2018 10:49 AM PDT) + + + + + + | Component | Value | Ref Range | Performed | Pathologist | | | | | At | Signature | + + + + + + | VITAMIN B1, | 95Comment: INTERPRETIVE | 70 - 180 nmol/L | [facility] | | | WHOLE | INFORMATION: Vitamin [...] | | | | | determined by [employer] | | | | | | Laboratories. See | | | | | | Compliance Statement B: | | | | | | [employer]/CSPerformed | | | | | | by [employer],[address] | | | | | | [facility],[place] | | | | | | [address] | | | | | | [phone].Perfectore. | | | | | | comLaurent MD, | | | | | | [...] [facility] | [address] | [place], [place] | | | [facility] | | [address] | | + + + + + [...] | | | LABORATORY | | | BAHRAINI | | | SERVICES, | | | [...] + + + + + | [facility] | [address] | [place] [address] | | | SERVICES, CORE | PARK [...] | [facility] | [address] | [place] [address] | | | SERVICES, CORE | PARK [...] | + + + + + | [facility] | [address] | [place] [address] | | | SERVICES, CORE | PARK [...] + + + + + | [facility] | [address] | [place] [address] | | | SERVICES, CORE | PARK [...] + | [facility] | [address] | [place] [address] | | | [address] | [address] | | | + + + + + documented in this encounter Visit Diagnoses + + | Diagnosis | + + | S/P gastric bypass - Primary Bariatric surgery status | + + | Impaired intestinal absorption Unspecified intestinal malabsorption | + + documented in this encounter
--- OUTSIDE RECORDS SUMMARY | ~2019-10-18 | XMS | Encounter Summary ---
Demographics + + + | Address | [address] | | | [place] [address] | + + + | Home Phone [...] [place] | | | | | [address] | | + + + + + Care Team Providers + +------+ + | Care Flight Director Name | Role | Phone | + +------+ + | Hemalatha Lawrence PA-C | PCP | | + +------+ + Encounter Details +--------+ + + + + | Date | Type | Department | Care Team | Description | +--------+ + + + + | 03/23/ | MyChart | Digestive Health | Arvin Altamirano, | RE: RE: pain | | 2017 | Encounter | Center at [facility] [address] | MD [address] | | | | | [address] | [place], [place] | | | | | Mailcode: Center | [address] | | | | | for Health and | | | | | | [facility] 2 | | | | | | [place], [place] | | | | | | [address] | | | | | | | [...] [facility] [address] | | | 2020 | Visit | Medicine | [address] | | | | | | [place] [address] | | +--------+ + + + + [...] Rd | | | | | | [place] | | | | | | [address] | | | | | | [phone] | | | | | | | | +--------+ + + + + documented as of this encounter Visit Diagnoses Not on filedocumented in this encounter"
--- OUTSIDE RECORDS SUMMARY | ~2019-10-18 | XMS | Encounter Summary ---
Demographics + + + | Address | [address] | | | [place] [address] | + + + | Home Phone [...] [place] | | | | | [address] | | + + + + + Care Team Providers + +------+ + | Care Cloth Inspector Name | Role | Phone | [...] 2018 | Encounter | Center at [facility] [address] | MD [address] | | | | | [address] | [place], [place] | | | | | Mailcode: Center | [address] | | | | | for Health and | [phone] | | | | | Healing, Building 2 | | | | | | [place], [place] | | | | | | [address] | | | | | | [phone] | | | +--------+ + + + [...] | Office | Pre-operative | 2, [facility] [address] | | | 2020 | Visit | Medicine | [address] | | | | | | [place] [address] | | +--------+ + + + + | 01/04/ | Procedure | Surgery | | | | 2019 | Pass | | | | +--------+ + + + + | 01/25/ | Office | Otolaryngology | Santos Valdivia, | | | 2019 | Visit | | [address] [facility] | | | | | | [address] | | | | | | [place] | | | | | | [address] | | | | | | [phone] | | | | | | | | +--------+ + + + + documented as of this encounter Visit Diagnoses Not on filedocumented in this encounter"
--- OUTSIDE RECORDS SUMMARY | ~2019-10-18 | XMS | Encounter Summary ---
Demographics + + + | Address | [address] | | | [place] [address] | + + + | Home Phone [...] [place] | | | | | [address] | | + + + + + Care Team Providers + +------+ + | Care Preservative Filler Machine Operator Name | Role | Phone [...] 2018 | Encounter | Center at [address] | | | | | | [address] | | | | | | Mailcode: Center | | | | | | for Health and | | | | | | Healing, Building [address] | | | | | | [place], [place] | | | | | | [address] | | | | | | [phone] | | | +--------+ + + + [...] [facility] [address] | | | 2019 | Visit | Medicine | [address] | | | | | | [place] [address] | | +--------+ + + + + | 01/04/ | Procedure | Surgery | | | | 2019 | Pass | | | | +--------+ + + + + | 01/25/ | Office | Otolaryngology | Santos Valdivia, | | | 2019 | Visit | | [address] | | | | | | [address] | | | | | | [place] | | | | | | [address] | | | | | | [phone] | | | | | | | | +--------+ + + + + documented as of this encounter Visit Diagnoses Not on filedocumented in this encounter"
--- OUTSIDE RECORDS SUMMARY | ~2019-10-18 | XMS | Encounter Summary ---
Demographics + + + | Address | [address] [facility] | | | [place] [address] | + + + | Home Phone [...] [place] | | | | | [address] | | + + + + + Care Team Providers + +------+ + | Care Plastic Extruding Machine Operator Name | Role | Phone [...] 2017 | on | Center at [facility] [address] | ACNP [address] | | | | | [address] | [place], [place] | | | | | Mailcode: Center | [address] | | | | | for Health and | [phone] | | | | | Healing, Building [address] | | | | | | [place], [place] | | | | | | [address] | | | | | | [phone] | | | +--------+ + + + [...] | 12/15/ | Office | Pre-operative | [facility] [address] | | | 2019 | Visit | Medicine | [address] | | | | | | [place] [address] | | +--------+ + + + + | 01/04/ | Procedure | Surgery | | | | 2019 | Pass | | | | +--------+ + + + + | 01/25/ | Office | Otolaryngology | Santos Valdivia, | | | 2019 | Visit | | [address] | | | | | | [address] | | | | | | [place], [place] | | | | | | [address] | | | | | | [phone] | | | | | | | | +--------+ + + + + documented as of this encounter Visit Diagnoses Not on filedocumented in this encounter"
--- OUTSIDE RECORDS SUMMARY | ~2019-10-18 | XMS | Encounter Summary ---
Demographics + + + | Address | [address] | | | [place] [address] | + + + | Home Phone [...] [place] | | | | | [address] | | + + + + + Care Team Providers + +------+ + | Care Coloring Room Worker Name | Role | Phone | [...] 12/15/ | Office | Pre-operative | 2, [facility] [address] | | | 2019 | Visit | Medicine | [address] | | | | | | [place] [address] | | +--------+ + + + + [...] Rd | | | | | | [place], [place] | | | | | | [address] | | | | | | [phone] | | | | | | | | +--------+ + + + + documented as of this encounter Visit Diagnoses Not on filedocumented in this encounter"
--- OUTSIDE RECORDS SUMMARY | ~2019-10-18 | XMS | Encounter Summary ---
Demographics + + + | Address | [address] | | | [place] [address] | + + + | Home Phone [...] [place] | | | | | [address] | | + + + + + Care Team Providers + +------+ + | Care Online Merchandiser Name | Role | Phone | + [...] | | | | | structure | [address] | for Health | | | | | (HCC) | Phone: | and Healing, | | | | | Unable to | | Building 2 | | | | | eat solid | Fax: | [place], [place] | | | | | foods | [phone] | [address] | | | | | Abdominal | | Phone: | | | | | pain, | | [phone] | | | | | unspecified | | Fax: | | | | | abdominal | | [phone] | | | | | location | [...] | | | | | | [place] | | | | | | | UPPER GI | | | | | | | ENDOSCOPY,BI | | | | | | | OPSY [place] UP | | | | | | [...] | | 2017 | | Center at [facility] [address] | MD [address] | | | | | [address] | [place], [place] | | | | | Mailcode: [place] | [address] | | | | | [facility] Health and | | | | | | [facility] 2 | | | | | | [place], [place] | | | | | | [address] | | | | | | | [...] Rd | | | | | | [place] [address] | | +--------+ + + + + | 01/04/ | Procedure | Surgery | | | | 2019 | Pass | | | | +--------+ + + + + | 01/25/ | Office | Otolaryngology | Santos Valdivia, | | | 2019 | Visit | | [address] | | | | | | [address] | | | | | | [place], [place] | | | | | | [address] | | | | | | [phone] | | | | | | | [...]
--- OUTSIDE RECORDS SUMMARY | ~2019-10-18 | XMS | Encounter Summary ---
Demographics + + + | Address | [address] | | | [place] [address] | + + + | Home Phone [...] [place] | | | | | [address] | | + + + + + Care Team Providers + +------+ + | Care Appeals Writer Name | Role | Phone | + +------+ + | Hemalatha Lawrence PA-C | PCP | | + +------+ + Encounter Details +--------+ + + + + | Date | Type | Department | Care Team | Description | +--------+ + + + + | 10/12/ | MyChart | Digestive Health | Arvin Altamirano, | RE: blood sugar | | 2017 | Encounter | Center at [address] | MD [address] | | | | | [address] | [place], [place] | | | | | Mailcode: Center | [address] | | | | | for Health and | | | | | | [facility] [address] | | | | | | [place], [place] | | | | | | [address] | | | | | | | [...] [address] | | | | | | [place] [address] | | +--------+ + + + + [...] [place] | | | | | | [address] | | | | | | [phone] | | | | | | | | +--------+ + + + + documented as of this encounter Visit Diagnoses Not on filedocumented in this encounter"
--- OUTSIDE RECORDS SUMMARY | ~2019-10-18 | XMS | Encounter Summary ---
Demographics + + + | Address | [address] | | | [place] [address] | + + + | Home Phone [...] [place] | | | | | [address] | | + + + + + Care Team Providers + +------+ + | Care Business Process Manager Name | Role | Phone | [...] | | | | | | | [place] [facility] | | | | | | | Health and | | | | | | | Healing, | | | | | | | [address] | | | | | | | [place], [place] | | | | | | | [address] | | | | | | | Phone: | | | | | | | [phone] | | | | | | | Fax: | | | | | | | [phone] | +--------+--------+ + + + + Encounter Details +--------+---------+ + + + | Date | Type | Department | Care Team | Description | +--------+---------+ + + + | 01/25/ | Office | Digestive Health | Celestina Madrigal, | Insulin dependent | | 2018 | Visit | Center at [facility] [address] | diabetes mellitus | | | | [address] | [address] | ([facility]) (Primary Dx); | | | | Mailcode: [place] | [place], [place] | S/P gastric bypass | | | | for Health and | [address] | | | | | Healing, [address] | | | | | | [place], [place] | | | | | | [address] | | | | | | [phone] | | | +--------+---------+ + + + [...] of visit: 8:20 to 8:50 (30 minutes aivn-ar-goqb with patient) Surgery: Gastric Bypass Date of Surgery: 01/17/18 Subjective: Any reported changes: constipation, last BM pre-op. Reports lots of flatus. Tolerating Bariatric Diet: Yes Current Physical Activity: walking around the house, Wednesday walked around [place] pushing a cart Changes in Diabetes Medications [...] multivitamin & mineral (with iron) supplement, 2/day -9587-8861 mg calcium citrate with vitamin D/day (take [...] month. Celestina Madrigal RD, LD Pager # [phone] docu mented in this encounter Plan of Treatment +--------+ + + + + | Date | Type | Specialty | Care Team | Description | +--------+ + + + + | 12/15/ | Office | Pre-operative | 2, [facility] [address] | | 2019 | Visit | Medicine | [address] | | | | | | [place] [address] | | +--------+ + + + + | 01/04/ | Procedure | Surgery | | | 2019 | Pass | | | | +--------+ + + + + | 01/25/ | Office | Otolaryngology | Santos Valdivia Whitney, | | | 2019 | Visit | | [address] | | | | | | [address] | | | | | | [place], [place] | | | | | | [address] | | | | | | [phone] | | | | | | | | +--------+ + + + + documented as of this encounter Procedures + +--------+ + + + | Procedure Name | Priori | Date/Time | Associated Diagnosis | Comments | | | ty | | | | + +--------+ + + + | FL MNT RE-ASSESSMNT | Routin | 01/25/2018 | Insulin dependent | | | X15MIN | e | 8:57 AM | diabetes mellitus | | | | | PDT | ([facility]) S/P gastric | | | | | [...]
--- OUTSIDE RECORDS SUMMARY | ~2019-10-18 | XMS | Encounter Summary ---
Demographics + + + | Address | [address] | | | [place] [address] | + + + | Home Phone [...] [place] | | | | | [address] | | + + + + + Care Team Providers + +------+ + | Care Rocket Assembly Operator Name | Role | Phone | [...] | | | | | 40.0-44.9, | [facility], [place] | [facility] | | | | | adult (HCC) | [address] | for Health | | | | | Insulin | Phone: | and Healing, | | | | | dependent | [phone] | Building [address], | | | | | diabetes | Fax: | 15th Floor | | | | | mellitus | [phone] | [place], [place] | | | | | (HCC) | | [address] | | | | | Essential | | Phone: | | | | | hypertension | | [phone] | | | | | | | Fax: | | | | | Hyperlipidem | | [phone] | | | | | [place], | [...] | | | | | | | [place] | | | | | | | PSYCHIATRIC | | | | | | | DIAGNOSTIC | | | | | | | EVAL, NO MED | | | | | | | [facility] [place] | | | | | | | [...] | [facility] | | | with CANAL SUPERINTENDENT | | | | [address] | | | | | | | [address] | | | | | | | Mailcode: | | | | | | | [facility] | | | | | | | Health and | | | | | | | Healing, | | | | | | | [address] | | | | | | | [place], [place] | | | | | | | [address] | | | | | | | Phone: | | | | | | | [phone] | | | | | | | Fax: | | | | | | | [phone] | +--------+ + + + + + Encounter Details +--------+---------+ + + + | Date | Type | Department | Care Team | Description | +--------+---------+ + + + | 07/08/ | Office | Digestive Health | Mary Gonsalez, | Morbid obesity with | | 2017 | Visit | Center at [facility] [address] | [address] | BMI of 40.0-44.9, | | | | [address] | Ave [place], [place] | adult (HCC) (Primary | | | | Mailcode: Center | [address] | Dx); Insulin | | | | for Health and | [phone] | dependent diabetes | | | | [facility] 2 | | mellitus ([facility]); | | | | [place], [place] | | Essential | | | | [address] | | hypertension; | | | | [phone] | | Hyperlipidemia, | | | | [...] to your private appointme nt with the digital communications manager. These classes will be scheduled apporoximately 1 [...] Psychological Evaluation: If your referral is at [facility], The Pain Management Office will call [...] then schedule with the surgeon. Mary SANCHEZ DISTRICT TRAFFIC CHIEF Bariatric Surgery Nurse Practitioner [facility] | [address] | [place], [place] | [address] | Potential Contraindications to Bariatric Surgery Age [...] other providers does not guarantee that the [facility] Bariatric Surger y program will deem you a surgical candidate. documented in this encounter Progress Notes Mary Gonsalez ACNP - 07/08/2017 12:30 PM PDTFormatting of this note might be different fr om the original. BARIATRIC INITIAL VISIT Provider: Mary SANCHEZ DISTRICT TRAFFIC CHIEF Referring Provider: Rian Sanchez MD Reason for Requested Consultation: Initial evaluation for bariatric surgery. Mynor Valdez is interested in Brynn en y gastr ic bypass or sleeve gastrectomy. The pt is here by himself, he will have a daughter in [facility] to help with post-op care aft [...] machine, walking- lost 25 lbs, regained all 7945-4621- Various diets, Atkins, walking, treadmills, exercise videos, weights, bands, ell iptical- lost 2-5 lbs, gained all back + 2013 Cabbage soup diet- lost 2 lbs, regained 3 lbs 2014 Isagenix (shakes and supplements)- lost 30 lbs, regained all (costly, couldn't afford) Physician Monitored diet: NA Use of Redux or Phen/fen: no Transthoracic ECHO: yes, previous NM perfusion stress test 12/15/10 Confucianist or cultural reason you would refuse blood [...] N/A Years of education: N/A 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 No CHF, [place], ischemic heart disease, DVT/PE, or pulmonary hypertension. [...] to your private appointme nt with the digital communications manager. These classes will be scheduled apporoximately 1 [...] Psychological Evaluation: If your referral is at [facility], The Pain Management Office will call [...] with the surgeon. Mary Gonsalez DNP ACNP DISTRICT TRAFFIC CHIEF Bariatric Surgery Nurse Practitioner [facility] | [address] | [place], [place] | [address] | Potential Contraindications to Bariatric Surgery Age [...] other providers does not guarantee that the [facility] Bariatric Surger y program will deem you a surgical candidate. documented in this e ncounter Plan of Treatment +--------+ + + + + | Date | Type | Specialty | Care Team | Description | +--------+ + + + + | 12/15/ | Office | Pre-operative | [address] [facility] [place] [place] [address] | | | 2019 | Visit | Medicine | [address] | | | | | | [place] [address] | | +--------+ + + + + [...] Rd | | | | | | [place], [place] | | | | | | [address] | | | | | | [phone] | | | | | | | [...] results section. | | | | | ([facility]) Insulin | | | | | | [...] DEPT OF | [address] | [place], [place] | | | CARDIOLOGY | [address] | [address] | | + + + + + [...] [facility] | [address] | [place] [address] | | | SERVICES, CORE | PARK [...] | + + + + + | [facility] | [address] | [place] [address] | | | SERVICES, CORE | SHANA [...] | [facility] | | considered for monitoring long term care social worker glycemic control in patients with: | LABORATORY [...] | + + + + + | [facility] | [address] | [place] [address] | | | SERVICES, SPECIAL | SHANA [...] | | | | | determined by [facility] | | | | | | Laboratories. See | | | | | | Compliance Statement B: | | | | | | [email or web address] | | | | | | by [employer],[address] | | | | | | [facility],[place] | | | | | | [address] | | | | | | [phone].[employer]. | | | | | | com, [...] [facility] | [address] | [place], [place] | | | [facility] | | [address] | | + + + + + [...] LABORATORY | [address] | [place] [address] | | | [facility] | | | | | HEALTH + [...] | + + + + + | [facility] | [address] | [place] [address] | | | SERVICES, CORE | SHANA [...] | + + + + + | [facility] | [address] | [place] [address] | | | SERVICES, CORE | SHANA [...]
--- OUTSIDE RECORDS SUMMARY | ~2019-10-18 | XMS | Encounter Summary ---
Demographics + + + | Address | [address] | | | [place] [address] | + + + | Home Phone | | + + + | Preferred Language | Unknown | + + + | Marital Status | | + + + | Pentecostal Affiliation | NRP | + + + [...] [place] | | | | | [address] | | + + + + + Care Team Providers + +------+ + | Care Regional Guide Name | Role | Phone | + +------+ + | Rian Sanchez MD | PCP | | + +------+ + Reason for Visit + + + | Reason | Comments | + + + | Car Gen Record | GEN Records Checklist | | Review | | + + + Encounter Details +--------+ + + + + | Date | Type | Department | Care Team | Description | +--------+ + + + + | 09/02/ | Abstract | Cardiology General | Unknown . | Car Gen Record | | 2017 | | at [facility] [address] | | Review (GEN Records | | | | [address] Mailcode: | | Checklist ) | | | | [address] | | | | | | Health and Healing, | | | | | | [facility] | | | | | | Floor [place], [place] | | | | | | [address] | | | | | | [phone] | | | +--------+ + + + [...] + documented as of this encounter Progress Sujata Sam - 09/02/2017 1:32 PM PDT General Cardiology New Patient Record Check List Procedure Where/Date Date requested Report received? Y/N, Where? Imaging received? CD/ IMPAX/Not Available Comments Referring Provider notes [facility] Yes- Epic N/A Internal Referral Last EKG (REPORT ONLY) Note: Tracings needed if being seen for abnormal ECG [facility] Yes- Epic N/A Last Echo images and report no Last Stress Test images and report [facility] Yes- Care Everywhere No images avail Last Cardiac Catheterization images and report no Last Holter or Event monitor report only no N/A Labs (BMP, Lipids, TSH, Hemoglobin A1C in last 6 months) [facility] Yes - Epic N/A Last Device Check (schedule device check if due) no N/A Last Cardiac MRI report and images if available no Cardiac CTA report and images if available no Patient Preferred Lab [facility] N/A N/A N/A Additional Comments: documented in this enco unter Plan of Treatment +--------+ + + + + | Date | Type | Specialty | Care Team | Description | +--------+ + + + + | 12/15/ | Office | Pre-operative | 2, [facility] [address] | | | 2019 | Visit | Medicine | [address] | | | | | | [place] [address] | | +--------+ + + + + [...] Rd | | | | | | [place], [place] | | | | | | [address] | | | | | | [phone] | | | | | | | | +--------+ + + + + documented as of this encounter Visit Diagnoses Not on filedocumented in this encounter"
--- OUTSIDE RECORDS SUMMARY | ~2019-10-18 | XMS | Encounter Summary ---
Demographics + + + | Address | [address] | | | [place] [address] | + + + | Home Phone [...] [place] | | | | | [address] | | + + + + + Care Team Providers + +------+ + | Care Remote Sensing Engineer Name | Role | Phone | + +------+ + | Hemalatha Lawrence PA-C | PCP | | + +------+ + Encounter Details +--------+---------+ + + + | Date | Type | Department | Care Team | Description | +--------+---------+ + + + | 01/10/ | Office | Preoperative | Owen, | Preop examination | | 2018 | Visit | Medicine Clinic at | Susana Oliver NP [address] | (Primary Dx) | | | | MPV 4th Floor Day | [facility] | | | | | Stay [address] [place], [place] | | | | | [address] | [address] | | | | | Mailcode: [id number] | [phone] | | | | | [facility]wan | | | | | | [address] [place], [place] | | | | | | [address] | | | | | | [phone] | | | +--------+---------+ + + + Anesthesia Record + + [...] | | | 7 | | reviewed, PARClarke held, anesthetic plan made or approved by [...] | Meds | +------+ + + + No medications | on file. | + + + + + | No agents on file. | + + + + | No blood administrations on file. | + + +--------+ + + + | Type | Details | Placement | Removal | +--------+ + + + | Wound | 01/17/18613; Yes; Right; 1st | 01/17/18613 by | | | | toe; Other (Comment) | Roxanne Fallon RN | | +--------+ + + + | Incisi | 01/17/18907; MD Maxime; | 01/17/18907 by | | [...] + + + | Periph | Libia Landis, MS-2; Right; Hand; 20 | 01/17/18 0858 by | 01/19/18 1059 by | | eral | g; 01/19/18; 1059 | | Zamzam [...] + + + | Blood Pressure | 128/76 | 01/10/2018 1:53 PM | | | | | PST | | + + + + + | Pulse | 74 | 01/10/2018 1:53 PM | | | | | PST | | + + + + + | Temperature | 36.8 C (98.2 F) | 01/10/2018 1:53 PM | | | | | PST | | + + + + + | Respiratory Rate | 12 | 01/10/2018 1:53 PM | | | | | PST | | + + + + + | Oxygen Saturation | 95% | 01/10/2018 1:53 PM | | | | | PST | | + + + + + | Inhaled Oxygen | - | - | | | Concentration | | | | + + + + + | Weight | 147.9 kg (326 lb) | 01/10/2018 1:53 PM | | | | | PST | | + + + + + | Height | 190.5 cm (6' 3") | 01/10/2018 1:53 PM | neck 49cm | | | | PST | | + + + + + | Body Mass Index | 40.75 | 01/10/2018 1:53 PM | | | | | PST | | + + + + + documented in this encounter Patient Instructions Patient Instructions Susana Weaver NP - 01/10/2018 2:05 PM [facility] PREOPERATIVE INSTRUCTIONS Empty stomach before surgery On the day BEFORE your surgery, drink plenty of fluids and stay well hydrated NOTHING to eat or drink after midnight the night before surgery. This includes water, coffee, candy, mints, gum. Medications Instructions On the evening before your surgery, take ALL your usual evening medications On the morning of surgery TAKE the following medications with a sip of water: Use half of usual dose of Tresiba Gabapentin Levothyroxine Metoprolol Wellbutrin Cymbalta On the morning of surgery DO NOT TAKE the following medications: Victoza Humalog Lisinopril Iron pill Other medications not specifically mentioned are at your discretion as to taking or not taking on the morning of surgery. Unless otherwise directed by your surgeon, do not take any Aspirin, fish oil supplements , vitamin E or non-steroidal anti-inflammatory (NSAIDs i.e. Advil, Aleve, Ibuprofen) or herb al supplements 7 days prior to your surgery. These drugs may interfere with normal blood yokasta tting and may cause excessive bleeding and bruising during or after the surgery. If you need a pain medication for general purposes, use Tylenol as directed. OK to take it even on the morning of surgery, if needed. If you are in doubt about any medications that you are taking, please contact our office . Skin preparation to help avoid surgical site infections HIBICLENS GUIDE TO GENERAL SKIN CLEANSING AT HOME BEFORE SURGERY Before you bathe or shower: ? Read the instructions given to you by your healthcare practitioner, and begin your genera l skin cleansing protocol as directed. ? Carefully read all directions on the product label. ? Hibiclens is not to be used on the head or face, keep out of the eyes, ears and mouth. ? Hibiclens is not to be used in the genital area. ? Hibiclens should not be used if you are allergic to chlorhexidine gluconate or any other ingredients in this preparation. *See Hibiclens label for full product information and precautions. When you bathe or shower the night before your surgery: ? If you plan to wash your hair, do so with your regular shampoo. Then rinse hair and body thoroughly to remove any shampoo residue. ? Wash your face with your regular soap or water only. ? Thoroughly rinse your body with warm water from neck down. ? Use Hibiclens as you would any other liquid soap. Please do not put the Hibiclens on a wa sh cloth, apply directly to the skin and wash gently. Apply the minimum amount of Hibiclens necessary to cover the skin. Leave the Hibiclens on your skin for 1 minute, then rinse off. ? Rinse thoroughly with warm water. ? Do not use your regular soap after applying and rinsing Hibiclens. When using Hibiclens for a second day in a row (morning of surgery, as soon as you wake up) : ? Shower/bathe again using Hibiclens in the same method as described above. ? Do not apply any lotions, deodorants, powders or perfumes to the body areas that have been cleaned with Hibiclens. Other Important Guidelines ? Do not shave the surgical area Do not smoke, drink alcohol or use recreational drugs for 24 hours before your surgery Watch for any change in your health condition. Let your surgeon know right away if you do not feel well. ? Do not wear makeup, perfume, lotions, deodorant, powder or hairspray. Do not wear any jewelry to the hospital. Wear loose, comfortable clothing. Leave all your valuables at home. Allow enough travel time so you re not late for your check in for surgery. Please remember to brush your teeth the night before and the morning of your procedure. Preventing post op complications while you are in the hospital Use an incentive spirometer or peep breathe to keep your lungs working properly an d to help prevent respiratory complications. It helps you take long, deep breaths. Use it at least once every hour while you are awake. Leg and feet exercises will maintain good circulation and help prevent blood clots in yo ur legs. Sometimes your doctor will order sequential air compression stockings. Compressed air helps the circulation in your legs. Walking and moving will help stimulate normal circulation and deep breathing. After you r surgery, your nurse may ask you to sit, stand or walk. Surgery check-in location: Admitting - [facility], ninth floor [facility] Surgery Check in Time: The Preoperative Medicine Clinic is not in the position to give you accurate information regarding surgical check in time. We refer you back to your surgical office regarding this important information. Going Home Your surgical team will decide when you are medically ready to go home. If you stayed in the hospital after surgery, please arrange for your ride to come for yo u around 9AM on the day your doctor says you can go home. If you have questions or concerns after you go home, call your doctor s office. If it is after office hours, call the [facility] [employer] operator at [phone] and ask them to page him or h er. documented in this encounter Progress Notes Susana Weaver NP - 01/10/2018 2:05 PM PSTFormatting of this note might be differe nt from the original. PREOPERATIVE CONSULT NOTE Author: SUSANA WEAVER NP Referring Physician: Arvin Altamirano MD Primary Care Provider: Hemalatha Lawrence PA-C Reason for Consult: Preoperative evaluation and risk assessment Proposed Procedure/Date: LAPAROSCOPIC BARBY EN Y GASTRIC BYPASS/01-17-2018 HISTORY OF PRESENT ILLNESS: Mynor Valdez is a 47 y.o. male here for preoperative evaluat ion of medical problems in anticipation of the above procedure. Pt has dx of morbid obesity . Symptoms related to the diagnosis: Mr. Valdez has a h/o being obese for most of his lif e, his Body mass index is 40.75 kg/m. He is unable to loose weight despite multiple atte mpts, his obesity contributed to development of DM-2, HTN, HLD. (location, duration,timing, quality, associated symptoms, modifying factors) Pertinent medical problems discussed during this visit: JOSE, well-controlled by CPAP, will bring to the hospital HTN, well-controlled by metoprolol, lisinopril Depression, well-controlled by Wellbutrin, Cymbalta Hypothyroidism, well-controlled by levothyroxine 200 mcg q D DM-2, well-controlled by Tresiba 80 units q AM + Humalog 30 units TIDAC, victoza 1.8 mL q am. Diabetic foot ulcers right big toe - under care of foot doctor Perioperative cardiac risks: CAD no CHF no CVA no CKD with creatinine >2 no DM treated with insulin yes Functional Capacity: Moderate (4-10 mets) Prior complications of anesthesia: none ROS: HPI: Mynor Valdez is a 47 y.o. male seen in [facility] clinic today for pre-op evaluation prior to L APAROSCOPIC BARBY EN Y GASTRIC BYPASS Prior Anesthetic Problems: No Pulmonary: no shortness of breath no cough no stridor no wheezing no rhinorrhea no sputum no p neumothorax no Recent Respiratory Infection Pt. Has no asthma no COPD Dx of sleep apnea Uses BiPap/CPAP Cardiovascular: No physical limitations, works on feet all day long, going up and down stairs, denies SOB, PICHARDO, CP, angina Functional Capacity: Moderate - cyanosis, palpitations and syncope negative for pulmonary HTN no PAD no chest pain n o CHF hypertension well controlled no CAD Sx no valvular problems/murmurs -congenital h eart disease no arrhythmia no Cardiac assist devices no pacemaker/ICD GI/Hepatic: Within Defined Limits except as noted below no GI Bleed no OTHER GI no GERD no liver d isease no hepatitis Renal: Within Defined Limits except as noted below no renal failure no electrolyte abnormalities no dialysis Urology/Mapping Pilot: Within Defined Limits except as noted below no Urologic Conditions No QUARTER LINING SMOOTHER conditions Endo: Diabetes: type 2 oral hypoglycemics and insulin injections Endocrine Other Thyroid:+ hypo thyroidism Neuro/Psych: Within Defined limits except as noted below No Head Conditions No Neurologic Development c onditions No Spine Conditions No Neuromuscular Conditions No Other symptoms Psych Disorder depression no pain Musculoskeletal: Within Defined Limits except as noted below no arthritis No Muscular Disorders no skeleta l disorders Heme/Onc: Within Defined Limits except as noted below Pt. has: no active bleeding no bleeding disord er No clotting disorders No hemoglobin disorders no malignancy Infectious Disease: Within Defined Limits except as noted below no MRSA no VRE no clostridium difficile no HIV /AIDS no tuberculosis No Other Conditions Skin: Integumentary system within defined limits open wounds No active skin infections no skin c onditions AutoImmune Disorders: autoimmune disorders within defined limits No autoimmune disorders Obstetrics: Current : None . Current medications reviewed / updated Current Outpatient Prescriptions Medication Sig atorvastatin 10 [...] pen 20 Units three times daily. iron gly,[id number] 150 mg iron-200 mg-250 mcg oral tablet [...] mg/3 mL) subcutaneous pen injector 1.8 mg. Level of confidence in medication reconciliation accuracy: High Allergies reviewed / updated Allergies Allergen Reactions Actos [Pioglitazone Hcl] Headache Cephalexin Hcl Unknown Metformin Diarrhea Past medical history reviewed / updated Past Medical History: Diagnosis Date Anxiety Depression HBP (high blood pressure) Headache High cholesterol Numbness and tingling JOSE on CPAP Thyroid activity decreased Past surgery reviewed / updated Past Surgical History Procedure Laterality Date Ankle fracture surgery 2001 Hand surgery Left 2006 Sinus surgery 2005 Sinus surgery 2012 Family history reviewed / updated Family History Problem Relation Diabetes Mother Thyroid Mother Obesity Mother Breast Cancer Mother Stroke Mother age mid 70's Parkinson's Disease Father Cancer Father High blood pressure Father Obesity Sister Diabetes Sister Diabetes Brother High blood pressure Brother Obesity Brother Cancer Sister Fibromyalgia Sister High blood pressure Sister Obesity Brother Social history reviewed / updated Social History Substance Use Topics Smoking status: Former Smoker Packs/day: 0.75 Years: 6.00 Quit date: 11/08/1993 Smokeless tobacco: Never Used Comment: quit 23 years ago Alcohol use No PHYSICAL EXAM: Last Vitals: BP 128/76 | Pulse 74 | Temp (Src) 36.8 C (98.2 F) (Oral) | RR 12 | Ht 1.90 5 m (6' 3") | Wt 147.9 kg (326 lb) | SpO2 95% | BMI 40.75 kg/(m^2) Body mass index is 40.75 kg/m. General: Appearance: Age appropriate, No distress and Smiling LOC: Alert HEENT: Normocephalic/Atraumatic, Ext inspection of ears/nose normal, Normal sclerae/conjunctivae and Oropharyngeal mucosa pink/moist Airway: Dentition: dentition is normal Mallampati: 2 Mouth Opening: > 3 cm C-Spine ROM: Normal Neck Anatomy: Thick, obese Neck Circumference: 49 cm. Jaw Protrusion: Normal (lower incisors go above upper incisors) Pulmonary: Respiratory: pulmonary exam normal Breath Sounds: breath sounds normal Cardiovascular: Rhythm: Regular Rate: Normal Abdomen: General: Body Habitus: obesity Musculoskeletal: Range of Motion: Normal range of motion Neuro/Psych: Affect: Normal Cognitive Status: Normal Speech: Normal speech Skin: Color: skin color normal Texture: Normal Turgor: turgor normal Temperature: Warm Other Implanted Devices: Implanted devices: None LABS & DATA REVIEWED/ORDERED Lab Results Component Value Date WBC 7.83 07/08/2017 HB 15.5 07/08/2017 HCT 45.2 07/08/2017 PLT 199 07/08/2017 MCV 89.9 07/08/2017 RDW 42.6 07/08/2017 Lab Results Component Value Date NA 139 10/29/2017 K 4.0 10/29/2017 CL 101 10/29/2017 BICARB 27 10/29/2017 BUN 16 10/29/2017 CR 0.82 10/29/2017 GLU 76 10/29/2017 CA 9.6 10/29/2017 AST 43 07/08/2017 ALT 34 07/08/2017 AP 66 07/08/2017 TBILI 0.8 07/08/2017 TP 7.8 07/08/2017 ALB 3.9 07/08/2017 No results found for: ABO, RH Lab Results Component Value Date A1C 6.9 (H) 07/08/2017 EKG: Not needed Perioperative risk calculators 2014 ACC/AHA Perioperative Cardiac Risk Stratification (assumes non-emergent, non-cardiac p rocedure) Are active cardiac conditions present? No Calculate the combined surgical and patient-specific risk: using the Gee perioperative ca rdiac risk calculator, the risk of major adverse cardiac event (MACE) is: less than 1%. No further risk stratification for coronary disease is indicated. Estimated ASA class 3 Other perioperative risk calculators: Not Applicable ASSESSMENT and RECOMMENDATIONS: Perioperative risk assessment: Mynor Valdez is a 47 y.o. male with diagnosis of obe sity, scheduled for LAPAROSCOPIC BARBY EN Y GASTRIC BYPASS. Based on the clinical informatio n obtained and reviewed during this visit, the overall assessment is that the patient is hav ing elective major surgery with identified risk factors. The patient is stable / optimized for surgery. Additional testing/optimization is not needed. Medication management recommendations: The patient was advised to continue all usual med ications except as noted in Patient Instructions (After Visit Summary given to pt) Pre-procedure antibiotic recommendation: Per standard protocol. JOSE, well-controlled by CPAP, will bring to the hospital HTN, well-controlled by metoprolol, lisinopril Depression, well-controlled by Wellbutrin, Cymbalta Hypothyroidism, well-controlled by levothyroxine 200 mcg q D DM-2, well-controlled by Tresiba 80 units q AM + Humalog 30 units TIDAC, victoza 1.8 mL q am. Diabetic foot ulcers right big toe - under care of foot doctor Thank you for the opportunity to contribute to this patient's care. SUSANA WEAVER NP [facility] PREOPERATIVE MEDICINE CLINIC AT [facility] 4TH FLOOR DAY STAY [address] [facility] [address] I spent time (45 minutes, >50% of the visit) counseling the pt regarding perioperative risk (cardiac/bleeding/ DVT/ respiratory failure/ infection, etc) and methods to mitigate risk. I advised the patient regarding NPO requirements, hydration before surgery, showering, gen eral body hygiene. All pre-procedure instructions given to the patient (after-visit summary ). All of patient's questions were addressed. The patient verbalized understanding of the instructions given. P M PSTdocumented in this encounter Plan of Treatment +--------+ + + + + | Date | Type | Specialty | Care Team | Description | +--------+ + + + + | 12/15/ | Office | Pre-operative | 2, [facility] [address] | | | 2019 | Visit | Medicine | [address] | | | | | | [place] [address] | | +--------+ + + + + [...] [address] | | | | | | [place], [place] | | | | | | [address] | | | | | | [phone] | | | | | | | | +--------+ + + + + + + +--------+ + + | Name | Type | Priori | Associated Diagnoses | Order Schedule | | | | ty | | | + + +--------+ + + | COMMUNICATION TO [facility] | Procedures | Routin | Preop examination | Ordered: 01/10/2018 | | LAB DRAW | | e | | | + + +--------+ + + documented as of this encounter Procedures + +--------+ + + + | Procedure Name | Priori | Date/Time | Associated Diagnosis | Comments | | | ty | | | | + +--------+ + + + | CBC (HEMOGRAM) ONLY | Routin | 01/10/2018 | Preop examination | Results for this | | | e | 2:19 PM | | procedure are in the | | | | PST | | results section. | + +--------+ + + + | COMPLETE METABOLIC | Routin | 01/10/2018 | Preop examination | Results for this | | SET | e | 2:19 PM | | procedure are in the | | (NA,K,CL,CO2,BUN,CRE | | PST | | results section. | | AT,GLUC,CA,AST,ALT,B | | | | | | KARTHIK TOTAL,ALK | | | | | | PHOS,ALB,PROT TOTAL) | | | | | + +--------+ + + + | CBC ONLY | Routin | 01/10/2018 | Preop examination | Results for this | | | e | 2:19 PM | | procedure are in the | | | | PST | | results section. | + +--------+ + + + | ANTIBODY SCREEN | Routin | 01/10/2018 | Preop examination | Results for this | | | e | 2:19 PM | | procedure are in the | | | | PST | | results section. | + +--------+ + + + | TYPE AND SCREEN | Routin | 01/10/2018 | Preop examination | Results for this | | | e | 2:19 PM | | procedure are in the | | | | PST | | results section. | + +--------+ + + + | ABO & RH TYPE | Routin | 01/10/2018 | Preop examination | Results for this | | | e | 2:19 PM | | procedure are in the | | | | PST | | results section. | + +--------+ + + + | HEMOGLOBIN A1C, | Routin | 01/10/2018 | Preop examination | Results for this | | BLOOD | e | 2:19 PM | | procedure are in the | | | | PST | | results section. | + +--------+ + + + documented in this encounter Results CBC (HEMOGRAM) ONLY (01/10/2018 2:19 PM PST) + +---------+ + + + | Component | Value | Ref Range | Performed | Pathologist | | | | | At | Signature | + +---------+ + + + | WHITE CELL | 8.49 | 3.50 - 10.80 | [facility] | | | COUNT | | K/cu mm | LABORATORY | | | | | | SERVICES, | | | | | | CORE | | + +---------+ + + + | RED CELL | 4.71 | 4.50 - 6.00 | [facility] | | | COUNT | | M/cu mm | LABORATORY | | | | | | SERVICES, | | | | | | CORE | | + +---------+ + + + | HEMOGLOBIN | 14.5 | 13.5 - 17.5 | [facility] | | | | | g/dL | LABORATORY | | | | | | SERVICES, | | | | | | CORE | | + +---------+ + + + | HEMATOCRIT | 42.5 | 41.0 - 53.0 % | [facility] | | | | | | LABORATORY | | | | | | SERVICES, | | | | | | CORE | | + +---------+ + + + | MCV | 90.2 | 80.0 - 96.0 fL | [facility] | | | | | | LABORATORY | | | | | | SERVICES, | | | | | | CORE | | + +---------+ + + + | MCHC | 34.1 | 33.0 - 35.5 | [facility] | | | | | g/dL | LABORATORY | | | | | | SERVICES, | | | | | | CORE | | + +---------+ + + + | RDW SD | 41.3 | 35.1 - 46.3 fL | [facility] | | | | | | LABORATORY | | | | | | SERVICES, | | | | | | CORE | | + +---------+ + + + | PLATELET | 213 | 150 - 400 K/cu | [facility] | | | COUNT | | mm | LABORATORY | | | | | | SERVICES, | | | | | | CORE | | + +---------+ + + + | MPV | 9.0 (L) | 9.7 - 12.3 fL | [facility] | | | | | | LABORATORY | | | | | | SERVICES, | | | | | | CORE | | + +---------+ + + + | NRBC% | 0.0 | 0.0 - 0.3 % | [facility] | | | | | | LABORATORY | | | | | | SERVICES, | | | | | | CORE | | + +---------+ + + + | NRBC# | 0.00 [...] | + + + + + | [facility] | [address] | [place] [address] | | | SERVICES, CORE | [address] | | | + + + + + ANTIBODY SCREEN (01/10/2018 2:19 PM PST) + + + + + + | Component | Value | Ref Range | Performed | Pathologist | | | | | At | Signature | + + + + + + | Antibody | Negative | | [facility] | | | Screen | | | LABORATORY | | | [...] [facility] | [address] | [place] [address] | | | SERVICES, | [address] | | | | TRANSFUSION MEDICINE | | | | + + + + + ABO & RH TYPE (01/10/2018 2:19 PM PST) + + + + + + | [...] | + + + + + | [facility] | [address] | [place] [address] | | | SERVICES, | [address] | | | | TRANSFUSION MEDICINE | | | | + + + + + HEMOGLOBIN A1C, BLOOD (01/10/2018 2:19 PM PST) + + + + + + | Component | Value | Ref Range | Performed | Pathologist | | | | | At | Signature | + + + + + + | HEMOGLOBIN | 7.6 (H)Comment: Hgb A1C | <5.7 % | [...] | [facility] | | considered for monitoring remote computer terminal operator glycemic control in patients with: | LABORATORY [...] | + + + + + | [facility] | [address] [facility] [facility] | [place] [address] | | | SERVICES, SPECIAL | [address] | | | | IMM + COAG | | | | + + + + + COMPLETE METABOLIC SET (NA,K,CL,CO2,BUN,CREAT,GLUC,CA,AST,ALT,BILI TOTAL,ALK PHOS,ALB,PROT TOTAL) (01/10/2018 2:19 PM PST) + +---------+ + + + | Component | Value | Ref Range | Performed | Pathologist | | | | | At | Signature | + +---------+ + + + | GLUCOSE, | 350 (H) | 70 - 99 mg/dL | [...] +---------+ + + + | CREATININE | 0.75 | 0.70 - 1.30 | [facility] | | | PLASMA | | mg/dL | LABORATORY | | | (LAB) | | | SERVICES, | | | | | | CORE | | + +---------+ + + + | EGFR | >60 | >60 mL/min | [facility] | | | - | | | LABORATORY | | | ALGERIAN | | | SERVICES, | | | [...] + + | POTASSIUM, | 4.2 | 3.4 - 5.0 | [facility] | | | PLASMA | | mmol/L | LABORATORY | | | (LAB) | | | SERVICES, | | | | | | CORE | | + +---------+ + + + | CHLORIDE, | 102 | 97 - 108 mmol/L | [facility] | | | PLASMA | | | LABORATORY | | | (LAB) | | | SERVICES, | | | | | | CORE | | + +---------+ + + + | TOTAL CO2, | 26 | 21 - 32 mmol/L | [facility] [...] +---------+ + + + | BILIRUBIN | 0.3 | 0.3 - 1.2 mg/dL | [facility] | | | TOTAL | | | LABORATORY | | | | | | SERVICES, | | | | | | CORE | | + +---------+ + + + | TOTAL | 7.8 | 6.4 - 8.2 g/dL | [facility] | | | PROTEIN, | | | LABORATORY | | | PLASMA | | | SERVICES, | | | (LAB) | | | CORE | | + +---------+ + + + | ALBUMIN, | 3.6 | 3.5 - 4.7 g/dL | [facility] | | | PLASMA | | | LABORATORY | | | (LAB) | | | SERVICES, | | | | | | CORE | | + +---------+ + + + | ALK PHOS | 68 | 53 - 128 U/L | [facility] | | | | | | LABORATORY | | | | | | SERVICES, | | | | | | CORE | | + +---------+ + + + | AST(SGOT) | 19 | <=41 U/L | [facility] | | | | | | LABORATORY | | | | | | SERVICES, | | | | | | CORE | | + +---------+ + + + | ALT (SGPT) | 28 | <=60 U/L | [facility] | | | | | | LABORATORY | | | | | | SERVICES, | | | | | | CORE | | + +---------+ + + + | ANION GAP | 7 | 4 - 11 mmol/L | [facility] | | | | | | LABORATORY | | | | | | SERVICES, | | | | | | CORE | | + +---------+ + + + | ANION | 8 | 4 - 11 mmol/L [...] Program. Estimated GFR Interpretive Information: | FILI, ANNA | | <60 mL/min/1.73 sq m Chronic [...] + + | Performing | Address | City/State[facility] | Phone Number | | Organization | | | | + + + + + | [facility] | [address] | [place] [address] | | | FILI, ANNA | [address] | | | + + + + + documented in this encounter Visit Diagnoses + + | Diagnosis | + + | Preop examination - Primary Preoperative examination, unspecified | + + documented in this encounter
--- OUTSIDE RECORDS SUMMARY | ~2019-10-18 | XMS | Encounter Summary ---
Demographics + + + | Address | [address] | | | [place] [address] | + + + | Home Phone [...] [place] | | | | | [address] | | + + + + + Care Team Providers + +------+ + | Care Sandwich Hand Name | Role | Phone | [...] 12/15/ | Office | Pre-operative | 2, [facility] [address] | | | 2019 | Visit | Medicine | [address] | | | | | | [place] [address] | | +--------+ + + + + [...] Rd | | | | | | [place], [place] | | | | | | [address] | | | | | | [phone] | | | | | | | | +--------+ + + + + documented as of this encounter Visit Diagnoses Not on filedocumented in this encounter"
--- OUTSIDE RECORDS SUMMARY | ~2019-10-18 | XMS | Encounter Summary ---
Demographics + + + | Address | [address] [facility] | | | [place] [address] | + + + | Home Phone [...] [place] | | | | | [address] | | + + + + + Care Team Providers + +------+ + | Care Locate Technician Name | Role | Phone | + +------+ + | Hemalatha Lawrence PA-C | PCP | | + +------+ + Encounter Details +--------+ + + + + | Date | Type | Department | Care Team | Description | +--------+ + + + + | 12/03/ | Abstract | Digestive Health | Clinic, Surgery | | | 2018 | | [place] at [facility] [address] | | | | | | [address] | | | | | | Mailcode: Center | | | | | | for Health and | | | | | | Healing, Building 2 | | | | | | [place], [place] | | | | | | [address] | | | | | | [phone] | | | +--------+ + + + [...] Pre-operative | 2, [facility] [address] | | 2019 | Visit | Medicine | [address] | | | | | | [place] [address] | | +--------+ + + + + [...] Rd | | | | | | [facility] [place] | | | | | | [address] | | | | | | [phone] | | | | | | | | +--------+ + + + + documented as of this encounter Visit Diagnoses Not on filedocumented in this encounter"
--- OUTSIDE RECORDS SUMMARY | ~2019-10-18 | XMS | Encounter Summary ---
Demographics + + + | Address | [address] | | | [place] [address] | + + + | Home Phone | | + + + | Preferred Language | Unknown | + + + | Marital Status | | + + + | Voodoo Affiliation | NRP | + + + [...] [place] | | | | | [address] | | + + + + + Care Team Providers + +------+ + | Care Popped Corn Oven Attendant Name | Role | Phone | + +------+ + | Rian Sanchez MD | PCP | | + +------+ + Encounter Details +--------+ + + + + | Date | Type | Department | Care Team | Description | +--------+ + + + + | 05/05/ | Abstract | Digestive Health | Clinic, Surgery | | | 2017 | | [place] at [facility] [address] | | | | | | [address] | | | | | | Mailcode: Center | | | | | | for Health and | | | | | | Healing, [address] | | | | | | [place], [place] | | | | | | [address] | | | | | | [phone] | | | +--------+ + + + [...] Office | Pre-operative | 2, Andrés Chambers [address] | | | 2020 | Visit | Medicine | [address] | | | | | | [place] [address] | | +--------+ + + + + [...] Rd | | | | | | [place], [place] | | | | | | [address] | | | | | | [phone] | | | | | | | | +--------+ + + + + documented as of this encounter Visit Diagnoses Not on filedocumented in this encounter"
--- OUTSIDE RECORDS SUMMARY | ~2019-10-18 | XMS | Encounter Summary ---
Demographics + + + | Address | [address] | | | [place] [address] | + + + | Home Phone [...] [place] | | | | | [address] | | + + + + + Care Team Providers + +------+ + | Care Senior Design Engineering Specialist Name | Role | Phone | [...] | Impaired intestinal | | | | [place], [place] | | absorption | | | | [address] | | | | | | [phone] | | | +--------+------+ + + + [...] Rd | | | | | | [place] [address] | | +--------+ + + + + | 01/04/ | Procedure | Surgery | | | | 2020 | Pass | | | | +--------+ + + + + | 01/25/ | Office | Otolaryngology | Santos Valdivia, | | | 2019 | Visit | | [address] | | | | | | [address] | | | | | | [place], [place] | | | | | | [address] | | | | | | [phone] | | | | | | | [...] | | | | | | by [address] | | | | | | [facility] | | | | | | [address] | | | | | | [phone]. | | | | | | Laurent [...] [facility] | [address] | [place], [place] | | | [facility] | | [address] | | + + + + + [...] | + + + + + | [employer] | [address] | [place] [address] | | | [facility] | | | | | HEALTH [...] | | | | | determined by [facility] | | | | | | Laboratories. See | | | | | | Compliance Statement B: | | | | | | Point.io.Blue Badge Style/CSPerformed | | | | | | by [address] | | | | | | Miguel Van [facility] | | | | | | [address] | | | | | | [phone]. | | | | | | com, [...] [facility] | [address] | [place], [place] | | | [facility] | | [address] | | + + + + + [...] | | | LABORATORY | | | UKRAINIAN | | | SERVICES, | | | [...] + + + + + | [facility] [employer] | [address] [facility] | [place] [address] | | | SERVICES, ANNA | SHANA [...] | + + + + + | [facility] | [address] | [place] [address] | | | SERVICES, CORE | SHANA [...] | + + + + + | [employer] | [address] | [place] [address] | | | SERVICES, CORE | PARK [...] LABORATORY | [address] | [place] [address] | | | SERVICES, CORE | PARK [...] + + + + + | [facility] [employer] | [address] | [place] [address] | | | SERVICES, CORE | [address] | | | + + + + + documented in this encounter Visit Diagnoses + + | Diagnosis | + + | S/P gastric bypass Bariatric surgery status | + + | 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
--- OUTSIDE RECORDS SUMMARY | ~2019-10-18 | XMS | Encounter Summary ---
Demographics + + + | Address | [address] | | | [place] [address] | + + + | Home Phone [...] [place] | | | | | [address] | | + + + + + Care Team Providers + +------+ + | Care Rewriter Name | Role | Phone | + +------+ + | Hemalatha Pahceco PA-C | PCP | | + +------+ [...] + + + + | 05/04/ | Hospital | [facility] [address] | Bob Downing | | | 2018 | Encounter | [address] | MD Eris [address] [facility] | | | | | [facility] | [facility] | | | | | Blessing Kwan | [place], [place] | | | | | (MNP/[facility]) | [address] | | | | | [place], [place] | [phone] | | | | | [address] | | | | | | [phone] | | | +--------+ + + + [...] + + + | Blood Pressure | 128/79 | 05/04/2018 9:48 AM | | | | | PDT | | + + + + + | Pulse | 78 | 05/04/2018 9:48 AM | | | | | PDT | | + + + + + | Temperature | 36.6 C (97.9 F) | 05/04/2018 9:46 AM | | | | | PDT | | + + + + + | Respiratory Rate | 12 | 05/04/2018 9:46 AM | | | | | PDT | | + + + + + | Oxygen Saturation | 98% | 05/04/2018 9:48 AM | | | | | PDT | | + + + + + | Inhaled Oxygen | - | - | | | Concentration | | | | + + + + + | Weight | 111.1 kg (245 lb) | 05/04/2018 8:53 AM | | | | | PDT | | + + + + + | Height | 188 cm (6' 2") | 05/04/2018 8:53 AM | | | | | PDT | | + + + + + | Body Mass Index | 31.46 | 05/04/2018 8:53 AM | | | [...] as of this encounter Discharge Instructions Instructions Mayela Mosley RN - 05/04/2018Home Care Instructions after EGD (Upper Endoscop y) You may resume your normal medications unless told otherwise. Diet: see below Medications The medications you received for your [...] the endoscopy department toll free ext. [phone] or After business hours or on weekends and holiday Hospital Manager Student Services toll free [phone] ext. [phone] and have the GI doctor manager pulmonary paged. The provider who performed your procedure is: Bob Downing MD Results of your EGD: dilation of gastric bypass stricture 12mm-17mm balloon dilation Diet- Liquid, soft foods today, advance tomorrow as tolerated Follow up Appointments with: EGD in 2-3 weeks Your primary care provider or referring provider [...] | | 0 | | | | gly,[id number] | mouth once daily. | | | [...] documented as of this encounter Progress Notes Bob Downing MD - 05/04/2018 8:59 AM PDTFormatting of this note might be differen t from the original. PRE PROCEDURE NOTE: MR# [id number] Subjective: Mynor Valdez is a 48 y.o. male who presents today for a GI procedure. Patient History Reviewed Medications reviewed Allergies: Allergies as of 04/26/2018 - Fully Reviewed 04/21/2018 Allergen Reaction Noted Actos [pioglitazone hcl] Headache 05/13/2017 Cephalexin hcl Unknown 05/13/2017 Metformin Diarrhea 05/13/2017 Pt NPO for 12 hrs. ROS: All others negative. Objective: Vital Signs: BP 122/82 | Pulse 66 | Temp 36.7 C (98.1 F) | RR 16 | Ht 1.88 m (6' 2") | Wt 111.1 kg (245 lb) | SpO2 100% | BMI 31.46 kg/(m^2) Neuro: Patient oriented X3. Mental status clear and intact Mallampati Score: II Neck Neck supple. No adenopathy Respiratory: negative findings: no chest deformities noted, normal diaphragmatic excursion Cardiovascular: peripheral pulses are wnl, no edema Abdomen: nontender, no masses, no organomegaly Impression Patient deemed appropriate candidate for planned procedure and sedation. ASA 2 Plan Proceed with GI procedure PARQ held and all questions addressed. Consent obtained. See procedure note 05/04/2018 documented in th is encounter Plan of Treatment +--------+ + + + + | Date | Type | Specialty | Care Team | Description | +--------+ + + + + | 12/15/ | Office | Pre-operative | 2, [facility] [place] [facility] Marquita FUNEZ | | | 2019 | Visit | Medicine | [address] | | | | | | [place] [address] | | +--------+ + + + + [...] Rd | | | | | | [place], [place] | | | | | | [address] | | | | | | [phone] | | | | | | | | +--------+ + + + + documented as of this encounter Procedures + +--------+ + + + | Procedure Name | Priori | Date/Time | Associated Diagnosis | Comments | | | ty | | | | + +--------+ + + + | EGD | Routin | 05/04/2018 | S/P gastric bypass | Results for this | | | e | 9:11 AM | Stenosis of | procedure are in the | | | | PDT | gastrointestinal | results section. | | | | | structure (HCC) | | + +--------+ + + + | CAPILLARY BLOOD | Routin | 05/04/2018 | S/P gastric bypass | Results for this | | GLUCOSE (NO CHG), | e | 9:09 AM | | procedure are in the | | POC | | PDT | | results section. | + +--------+ + + + documented in this encounter Results EGD (05/04/2018 9:11 AM PDT) + + | Specimen | + + | | + + + +--- + | Narrative | Pe rformed At | + +--- + | MRN: | [facility] | | [id number] Date: 05/04/2018Patient Name: Mynor Booth #: | EN DOSCOPY | | [id number] of : 1970CSN: [id number] Type: | | | AmbulatoryRoom: GI 2Procedure: Upper GI | | | endoscopyIndications: Dysphagia; s/p RYGB in 01/23 with | | | anastomotic stricture s/p EGD dil on | | | 04/21/18 with improvement x 1 weekProviders: BOB Ferreira | | | MD CHANG (Doctor), MAYELA MOSLEY RN | | | (Nurse), AVERY FOX, Tire Worker (Tire Worker)Referring MD: | | | CHANEL LERNER, MDRequesting [...] The | | | Olympus [id number] Gastroscope #[id number] was | | | introduced through the [...] and keep track of | | | symptomsBOB DOWNING MD05/04/2018 9:52:44 AMNumber of Addenda: | | | 0Note Initiated On: 05/04/2018 9:11 [facility] Letter to: HEMALATHA Ferreira | | | CHADWICK PACHECO | | | - soft diet today, then ADAT and keep track of symptoms | | |BOB DOWNING MD | | |05/04/2018 9:52:44 AM | | |Number of Addenda: 0 | | |Note Initiated On: 05/04/2018 9:11 AM | | |CC Letter to: | | | HEMALATHA PACHECO PA-C | | + +--- + + +---------+ + + | Performing | Address | City[facility] | Phone Number | | Organization | | | | + +---------+ + + | [facility] | | | | + +---------+ + + CAPILLARY BLOOD GLUCOSE (NO CHG), POC (05/04/2018 9:09 AM PDT) + +---------+ + + + | Component | Value | Ref Range | Performed | Pathologist | | | | | At | Signature | + +---------+ + + + | BLOOD | 103 (H) | 70 - 99 mg/dL | [...] | + + + + + | [facility] | [address] | [place], [place] | | | [facility] | [address] | [address] | | | TESTS | | | | + + + + + documented in this encounter Visit Diagnoses + + | Diagnosis | + + | S/P gastric bypass - Primary Bariatric surgery status | + + | Stenosis of gastrointestinal structure (HCC) | + + documented in this encounter Administered Medications + +--------+ +--------+------+------+ | Medication Order | MAR | Action | Dose | Rate | Site | | | Action | Date | | | | + +--------+ +--------+------+------+ | fentaNYL (SUBLIMAZE) injection | Given | 05/04/20 | 50 mcg | | | | intravenous, INTRAPROCEDURE PRN, | | 18 9:19 | | | | | Starting Wed05/04/18 at 0919, | | AM PDT | | | | | Until Wed05/04/18 at 918 | | | | | | + +--------+ +--------+------+------+ +---+---+ | | | +---+---+ + +-------+ +--------+---+---+ | fentaNYL (SUBLIMAZE) injection | Given | 05/04/20 | 50 mcg | | | | intravenous, INTRAPROCEDURE PRN, | | 18 9:23 | | | | | Starting Wed05/04/18 at 0923, | | AM PDT | | | | | Until Wed05/04/18 at 0923 | | | | | | + +-------+ +--------+---+---+ +---+---+ | | | +---+---+ + +-------+ +--------+---+---+ | fentaNYL (SUBLIMAZE) injection | Given | 05/04/20 | 25 mcg | | | | intravenous, INTRAPROCEDURE PRN, | | 18 9:25 | | | | | Starting Wed05/04/18 at 0925, | | AM PDT | | | | | Until Wed05/04/18 at 0925 | | | | | | + +-------+ +--------+---+---+ +---+---+ | | | +---+---+ + +-------+ +--------+---+---+ | fentaNYL (SUBLIMAZE) injection | Given | 05/04/20 | 25 mcg | | | | intravenous, INTRAPROCEDURE PRN, | | 18 9:26 | | | | | Starting Wed05/04/18 at 0926, | | AM PDT | | | | | Until Wed05/04/18 at 0926 | | | | | | + +-------+ +--------+---+---+ +---+---+ | | | +---+---+ + +-------+ +--------+---+---+ | fentaNYL (SUBLIMAZE) injection | Given | 05/04/20 | 50 mcg | | | | intravenous, INTRAPROCEDURE PRN, | | 18 9:28 | | | | | Starting Wed05/04/18 at 0928, | | AM PDT | | | | | Until Wed05/04/18 at 0928 | | | | | | + +-------+ +--------+---+---+ + +---+ | | | + +---+ | lidocaine viscous (XYLOCAINE | | | VISCOUS) 2 % mucosal solution 15 | | | mL 15 mL, oral, INTRAPROCEDURE | | | PRN, Starting Wed05/04/18 at | | | 0839, Until Wed05/04/18 at 1708, | | | sore oropharynx | | + +---+ | | | + +---+ + +-------+ +------+---+---+ | lidocaine viscous (XYLOCAINE | Given | 05/04/20 | 8 mL | | | | VISCOUS) 2 % mucosal solution | | 18 9:16 | | | | | Mouth/Throat, INTRAPROCEDURE PRN, | | AM PDT | | | | | Starting Wed05/04/18 at 0916, | | | | | | | Until Wed05/04/18 at 0916 | | | | | | + +-------+ +------+---+---+ +---+---+ | | | +---+---+ + +-------+ +------+---+---+ | midazolam (PF) (VERSED) | Given | 05/04/20 | 2 mg | | | | injection INTRAPROCEDURE PRN, | | 18 9:19 | | | | | Starting Wed05/04/18 at 0919, | | AM PDT | | | | | Until Wed05/04/18 at 0919 | | | | | | + +-------+ +------+---+---+ +---+---+ | | | +---+---+ + +-------+ +------+---+---+ | midazolam (PF) (VERSED) | Given | 05/04/20 | 2 mg | | | | injection INTRAPROCEDURE PRN, | | 18 9:23 | | | | | Starting Wed05/04/18 at 0923, | | AM PDT | | | | | Until Wed05/04/18 at 0923 | | | | | | + +-------+ +------+---+---+ +---+---+ | | | +---+---+ + +-------+ +------+---+---+ | midazolam (PF) (VERSED) | Given | 05/04/20 | 1 mg | | | | injection INTRAPROCEDURE PRN, | | 18 9:25 | | | | | Starting Wed05/04/18 at 0925, | | AM PDT | | | | | Until Wed05/04/18 at 0925 | | | | | | + +-------+ +------+---+---+ +---+---+ | | | +---+---+ + +-------+ +------+---+---+ | midazolam (PF) (VERSED) | Given | 05/04/20 | 1 mg | | | | injection INTRAPROCEDURE PRN, | | 18 9:26 | | | | | Starting Wed05/04/18 at 0926, | | AM PDT | | | | | Until Wed05/04/18 at 09 | | | | | | + +-------+ +------+---+---+ + +---+ | | | + +---+ | simethicone (MYLICON) | | | suspension 3.333 mg 3.333 mg | | | (rounded from 3.3333 mg = 1 | | | drop), oral, INTRAPROCEDURE PRN, | | | Starting Wed05/04/18 at 0839, | | | Until Wed05/04/18 at 1708, | | | bloating, gas bubbles | | + +---+ | | | + +---+ | sodium chloride 0.9 % (NS) IV | | | infusion 50 mL/hr, intravenous, | | | CONTINUOUS, Starting Wed05/04/18 | | | at 0845, Until Wed05/04/18 at | | | 1708 | | + +---+ | | | + +---+ documented in this encounter
--- OUTSIDE RECORDS SUMMARY | ~2019-10-18 | XMS | Encounter Summary ---
Demographics + + + | Address | [address] | | | [place] [address] | + + + | Home Phone | | + + + | Preferred Language | Unknown | + + + | Marital Status | | + + + | Orthodoxy Affiliation | NRP | + + + | Race | White | + + + | Ethnic Group | Not or | + + + Author + + + | Author | [facility] | + + + | Organization | [facility] | + + + | Address | Unknown | + + + | Phone | Unavailable | + + + Support + + + + + | Name | Relationship | Address | Phone | + + + + + | Pooja Valdez | ECON | [address] | | | | | [place] | | | | | [address] | | + + + + + Care Team Providers + +------+ + | Care Airport Control Operator Name | Role | Phone | [...] | [facility] | | | with CHLORINE CELL TENDER | | | | [address] | | | | | | | [address] | | | | | | | Mailcode: | | | | | | | [place] for | | | | | | | Health and | | | | | | | Healing, | | | | | | | [address] | | | | | | | [place], [place] | | | | | | | [address] | | | | | | | Phone: | | | | | | | [phone] | | | | | | | Fax: | | | | | | | [phone] | +--------+ + + + + + Encounter Details +--------+---------+ + + + | Date | Type | Department | Care Team | Description | +--------+---------+ + + + | 05/13/ | Office | Digestive Health | PetTonia lyman, DANIEL | S/P gastric bypass | | 2018 | Visit | Center at [facility] [address] | [address] | (Primary Dx); | | | | [address] | [address] [place], | Impaired intestinal | | | | Mailcode: [place] | [place] [address] | absorption | | | | for Health and | [phone] | | | | | [facility] | | | | | | [place], [place] | | | | | | [address] | | | | | | [phone] | | | +--------+---------+ + + + [...] sanford limb 150 cm or less 8 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 [...] s via mouth., Disp: , Rfl: iron gly,oky-D-[id number]-hm-ykljzchv 150 mg iron-200 mg-250 mcg oral tablet, [...] to plan and will call and/or send Dubaki message if any issues. Start time 1050, end time 1120. I spent a total of 30 minutes face to face with this patie nt. Over 50% of visit was in counseling. Tonia Greenberg MSN, AG-ACNP, [employer] Bariatric Surgery Nurse Practitioner [facility] | [address] | [place], [place] | [address] | documented in this enco unter Plan of Treatment +--------+ + + + + | Date | Type | Specialty | Care Team | Description | +--------+ + + + + | 12/15/ | Office | Pre-operative | 2, Andrés Chambers [address] | | | 2020 | Visit | Medicine | [facility] [address] | | | | | | [place] [address] | | +--------+ + + + + | 01/04/ | Procedure | Surgery | | | | 2019 | Pass | | | | +--------+ + + + + | 01/25/ | Office | Otolaryngology | Santos Valdivia, | | | 2019 | Visit | | [address] | | | | | | [address] | | | | | | [place], [place] | | | | | | [address] | | | | | | [phone] | | | | | | | [...] INTERPRETIVE | 70 - 180 nmol/L | [facility] | | | WHOLE | INFORMATION: Vitamin [...] | | | | | determined by [facility] | | | | | | Laboratories. See | | | | | | Compliance Statement B: | | | | | | iCrumz/CSPerformed | | | | | | by [address] | | | | | | [facility] | | | | | | [address] | | | | | | [phone]. | | | | | | comLaurent [...] [facility] | [address] | [place], [place] | | | [facility] | | [address] | | + + + + + [...] | | | LABORATORY | | | COMORAN | | | SERVICES, | | | [...] | + + + + + | [facility] | [address] | [place] [address] | | | SERVICES, CORE | PARK [...] LABORATORY | [address] | [place] [address] | | | SERVICES, CORE | PARK [...] | + + + + + | [facility] | [address] | [place] [address] | | | SERVICES, CORE | PARK [...] | + + + + + | [facility] | [address] | [place] [address] | | | SERVICES, CORE | PARK [...] BERNABE ZAYAS | [address] | [place] [address] | | | [address] | [address] | | | + + + + + documented in this encounter Visit Diagnoses + + | Diagnosis | + + | S/P gastric bypass - Primary Bariatric surgery status | + + | Impaired intestinal absorption Unspecified intestinal malabsorption | + + documented in this encounter
--- OUTSIDE RECORDS SUMMARY | ~2019-10-18 | XMS | Encounter Summary ---
Demographics + + + | Address | [address] | | | [place] [address] | + + + | Home Phone [...] [place] | | | | | [address] | | + + + + + Care Team Providers + +------+ + | Care Manager Banking Name | Role | Phone | + +------+ + | Rian Sanchez MD | PCP | | + +------+ + Encounter Details +--------+ + + + + | Date | Type | Department | Care Team | Description | +--------+ + + + + | 11/09/ | MyChart | Digestive Health | Mary Gonsalez, | surgery | | 2018 | Encounter | Center at [facility] [address] | ACNP [address] | | | | | [address] | Ave [place], [place] | | | | | Mailcode: Center | [address] | | | | | for Health and | [phone] | | | | | Healing, [address] | | | | | | [place], [place] | | | | | | [address] | | | | | | [phone] | | | +--------+ + + + [...] | 2, [facility] [address] | | | 2019 | Visit | Medicine | [address] | | | | | | [place] [address] | | +--------+ + + + + [...] [place] | | | | | | [address] | | | | | | [phone] | | | | | | | | +--------+ + + + + documented as of this encounter Visit Diagnoses Not on filedocumented in this encounter"
--- OUTSIDE RECORDS SUMMARY | ~2019-10-18 | XMS | Encounter Summary ---
Demographics + + + | Address | [address] | | | [place] [address] | + + + | Home Phone [...] [place] | | | | | [address] | | + + + + + Care Team Providers + +------+ + | Care Reference And Instruction Librarian Name | Role | Phone | + [...] Center | | | | | | Health and | | | | | | [address] [address] | | | | | | [place], [place] | | | | | | [address] | | | | | | [phone] | | | +--------+ + + + [...] 12/15/ | Office | Pre-operative | 2 [facility] [address] | | | 2019 | Visit | Medicine | [address] | | | | | | [place] [address] | | +--------+ + + + + | 01/04/ | Procedure | Surgery | | | | 2019 | Pass | | | | +--------+ + + + + | 01/25/ | Office | Otolaryngology | Santos Valdivia, | | | 2019 | Visit | | [address] | | | | | | [address] | | | | | | [place], [place] | | | | | | [address] | | | | | | [phone] | | | | | | | | +--------+ + + + + documented as of this encounter Visit Diagnoses Not on filedocumented in this encounter"
--- OUTSIDE RECORDS SUMMARY | ~2019-10-18 | XMS | Encounter Summary ---
Demographics + + + | Address | [address] [address] [facility] | | | [place] [address] | + + + | Home Phone [...] Pooja Valdez | ECON | [address] | | | | | [place] | | | | | [address] | | + + + + + Care Team Providers + +------+ + | Care Director Of Child Welfare Services Name | Role | Phone | + [...] – [place] [address] | | | 2019 | Visit | Medicine | [address] | | | | | | [place] [address] | | +--------+ + + + + [...] Rd | | | | | | [place], [place] | | | | | | [address] | | | | | | [phone] | | | | | | | | +--------+ + + + + documented as of this encounter Visit Diagnoses Not on filedocumented in this encounter"
--- OUTSIDE RECORDS SUMMARY | ~2019-10-18 | XMS | Encounter Summary ---
Demographics + + + | Address | [address] | | | [place] [address] | + + + | Home Phone | | + + + | Preferred Language | Unknown | + + + | Marital Status | | + + + | Anabaptism Affiliation | NRP | + + + | Race | White | + + + | Ethnic Group | Not or | + + + Author + + + | Author | [facility] | + + + | Organization | [facility] | + + + | Address | Unknown | + + + | Phone | Unavailable | + + + Support + + + + + | Name | Relationship | Address | Phone | + + + + + | Pooja Valdez | ECON | [address] | | | | | [place] | | | | | [address] | | + + + + + Care Team Providers + +------+ + | Care Telephone Claims Representative Name | Role | Phone | [...] | | 2018 | | Center at [facility] [address] | | | | | | [address] | | | | | | Mailcode: [place] | | | | | | for Health and | | | | | | [facility] [address] | | | | | | [place], [place] | | | | | | [address] | | | | | | [phone] | | | +--------+ + + + [...] 12/15/ | Office | Pre-operative | 2 [facility] [address] | | | 2019 | Visit | Medicine | [address] | | | | | | [place] [address] | | +--------+ + + + + | 01/04/ | Procedure | Surgery | | | | 2019 | Pass | | | | +--------+ + + + + | 01/25/ | Office | Otolaryngology | Santos Valdivia, | | | 2019 | Visit | | [address] | | | | | | [address] | | | | | | [place], [place] | | | | | | [address] | | | | | | [phone] | | | | | | | | +--------+ + + + + documented as of this encounter Visit Diagnoses Not on filedocumented in this encounter"
--- OUTSIDE RECORDS SUMMARY | ~2019-10-18 | XMS | Clinical Summary ---
Demographics + + + | Address | [address] | | | [place] [address] | + + + | Home Phone | | + + + | Preferred Language | Unknown | + + + | Marital Status | | + + + | Adventism Affiliation | Unknown | + + + | Race | Unknown | + + + | Ethnic Group | Unknown | + + + Author + + + | Author | [facility] (Historical as of | | | 06-24-19) | + + + | Organization | [facility] (Historical as of | | | 06-24-19) [...] Team Providers + +------+ + | Care Field Traffic Investigator Name | Role | Phone | + [...] | [facility] | [phone] | | | | | [place] | [...] | | | 0000 Home: | [place] [address] | | | | | | | | | | | | | [phone] | | | | | | 1833 | | + +--------+ +--------+ + +"
--- OUTSIDE RECORDS SUMMARY | ~2019-10-18 | XMS | Encounter Summary ---
Demographics + + + | Address | [address] | | | [place] [address] | + + + | Home Phone [...] [place] | | | | | [address] | | + + + + + Care Team Providers + +------+ + | Care Supervisor Customer Complaint Service Name | Role | Phone | + [...] | Center at [facility] [address] | MD [address] | | | | | [address] | [place], [place] | | | | | Mailcode: Center | [address] | | | | | for Health and | [phone] | | | | | Healing, Building [address] | | | | | | [place], [place] | | | | | | [address] | | | | | | [phone] | | | +--------+ + + + [...] | Office | Pre-operative | 2, [facility] [address] | | | 2020 | Visit | Medicine | [address] | | | | | | [place] [address] | | +--------+ + + + + [...] [place] | | | | | | [address] | | | | | | [phone] | | | | | | | | +--------+ + + + + documented as of this encounter Visit Diagnoses Not on filedocumented in this encounter"
--- OUTSIDE RECORDS SUMMARY | ~2019-10-18 | XMS | Encounter Summary ---
Demographics + + + | Address | [address] | | | [place] [address] | + + + | Home Phone [...] [place] | | | | | [address] | | + + + + + Care Team Providers + +------+ + | Care Garment Cutter Name | Role | Phone | + [...] | | | | cardiovascul | PA-C [address] | | | | | | ar exam | [address] | | | | | | Abnormal ECG | [place], | | | | | | Abnormal | [place] | | | | | | echocardiogr | [address] | | | | | | am | Phone: | | | | | | Procedures | [phone] | | | | | | STRESS | Fax: | | | | | | ECHOCARDIOGR | [phone] | | | | | | AM, [...] | | | | cardiovascul | PA-C 9506 | | | | | | ar exam | [address] | | | | | | Abnormal ECG | [place], | | | | | | Procedures | [place] | | | | | | | [address] | | | | | | TRANSTHORACI | Phone: | | | | | | C | [phone] | | | | | | ECHOCARDIOGR | Fax: | | | | | | AM, ADULT | [phone] | | +--------+--------+ + + + + [...] | | | | obesity, BMI | [place], [place] | [place], [place] | | | | | unknown | [address] | [address] | | | | | (HCC) | Phone: | Phone: | | | | | Hyperlipidem | [phone] | [phone] | | | | | ia, | Fax: | Fax: | | | | | unspecified | [phone] | [phone] | | | | | hyperlipidem | [...] | 2017 | Visit | Preventive at [facility] | [address] | exam (Primary Dx); | | | | [address] | [address] [place], | Pure | | | | Mailcode: CH9A | [place] [address] | hypercholesterolemia | | | | [facility] | [phone] | ; Abnormal ECG; | | | | and Healing, | | Abnormal | | | | Building 1 | | echocardiogram; | | | | [place], [place] | | Abnormal stress | | | | [address] | | echo; Asymptomatic | | | | [phone] | | left ventricular | | | [...] Ches t xray done in 2017 at [facility] in [place] Schedule resting echocardiogram Start [...] Tests 2017 (see media tab): Exercise Echocardiogram ([facility]) 11/15/2017: MEDICAL DECISION MAKING: Are [...] before scheduling He was instructed to call [phone] Angiogram Patient verbalized understanding of plan of care as outlined. Poly Grove PA-C - 09/03/2017 10:15 AM PDTReviewed results of recent CV Tests: Echocardiogram ([facility]) 10/01/2017: Preoperative Recommendations: I reviewed the most [...] p zoya of care. [place] Brown DO recreation programmer and Radiology [facility] [place] Poly Laguna PA-C - 09/03/2017 10:15 AM [...] heart failure; he denies history of DVT/PE Myonr denies palpitations, tachycardia, exertional chest pain or [...] below: NM Myocardial Perfusion Study with Exercise ([facility]) 12/15/2010 - HIS TORY: Chest pain.Abnormal [...] calculator (one point for each "yes" answer) http://www.mdcalc.com/pjoskft-fcoqxtd-aijj-rgord-ubj-adiochnot-risk/ A. Elevated risk surgery?: yes B. Ischemic [...] Obesity who is [facility] and [facility] assessment for bariatric surgery. he [...] and several cardiovascular and noncardiovascular complications FARNAZ [employer] Publ[employer] hed online October 26, 2016. Schedule resting echocardiogram Get results of Chest xray done in 2017 at [facility] in [place] Start Atorvastatin 10 mg qHS - with [...] MD and referr ing provider/surgeon Mary Gonsalez [facility] CARDIOLOGY - PREVENTIVE [address] Mailcode: U[facility]62 [facility] [place] [phone] documented in t his encounter Plan of Treatment +--------+ + + + + | Date | Type | Specialty | Care Team | Description | +--------+ + + + + | 12/15/ | Office | Pre-operative | 2, [facility] [address] | | | 2020 | Visit | Medicine | [address] | | | | | | [place] [address] | | +--------+ + + + + [...] | | | | | | [place], [place] | | | | | | [address] | | | | | | [phone] | | | | | | | [...]
--- OUTSIDE RECORDS SUMMARY | ~2019-10-18 | XMS | Encounter Summary ---
Demographics + + + | Address | [address] | | | [place] [address] | + + + | Home Phone [...] [place] | | | | | [address] | | + + + + + Care Team Providers + +------+ + | Care Machine Stitcher Name | Role | Phone | + [...] 2018 | Encounter | Center at [facility] [address] | | RE:Reschedule | | | | [address] | | | | | | Mailcode: Center | | | | | | for Health and | | | | | | Healing, Building [address] | | | | | | [place], [place] | | | | | | [address] | | | | | | [phone] | | | +--------+ + + + [...] Office | Pre-operative | 2, Andrés Chambers [address] | | | 2020 | Visit | Medicine | [address] | | | | | | [place] [address] | | +--------+ + + + + [...] [place] | | | | | | [address] | | | | | | [phone] | | | | | | | | +--------+ + + + + documented as of this encounter Visit Diagnoses Not on filedocumented in this encounter"
--- OUTSIDE RECORDS SUMMARY | ~2019-10-18 | XMS | Encounter Summary ---
Demographics + + + | Address | [address] | | | [place] [address] | + + + | Home Phone [...] [place] | | | | | [address] | | + + + + + Care Team Providers + +------+ + | Care Bilingual School Psychologist Name | Role | Phone | + +------+ + | Rian Sanchez MD | PCP | | + +------+ + Encounter Details +--------+ + + + + | Date | Type | Department | Care Team | Description | +--------+ + + + + | 11/10/ | Abstract | Digestive Health | Clinic, Surgery | | | 2017 | | [place] at [facility] [address] | | | | | | [address] | | | | | | Mailcode: Center | | | | | | for Health and | | | | | | Healing, Building 2 | | | | | | [place], [place] | | | | | | [address] | | | | | | [phone] | | | +--------+ + + + [...] Office | Pre-operative | 2, [facility] [address] | | 2019 | Visit | Medicine | [address] | | | | | | [place] [address] | | +--------+ + + + + [...] [place] | | | | | | [address] | | | | | | [phone] | | | | | | | | +--------+ + + + + documented as of this encounter Visit Diagnoses Not on filedocumented in this encounter"
--- OUTSIDE RECORDS SUMMARY | ~2019-10-18 | XMS | Encounter Summary ---
Demographics + + + | Address | [address] | | | [place] [address] | + + + | Home Phone [...] [place] | | | | | [address] | | + + + + + Care Team Providers + +------+ + | Care Voyage Management System Operator Name | Role | Phone | [...] 2018 | Encounter | Center at [facility] [address] | ACNP [address] | | | | | [address] | Ave [place], [place] | | | | | Mailcode: Center | [address] | | | | | for Health and | [phone] | | | | | Healing, Building [address] | | | | | | [place], [place] | | | | | | [address] | | | | | | [phone] | | | +--------+ + + + [...] [facility] [address] | | | 2019 | Visit | Medicine | [address] | | | | | | [place] [address] | | +--------+ + + + + [...] [place] | | | | | | [address] | | | | | | [phone] | | | | | | | | +--------+ + + + + documented as of this encounter Visit Diagnoses Not on filedocumented in this encounter"
--- OUTSIDE RECORDS SUMMARY | ~2019-10-18 | XMS | Encounter Summary ---
Demographics + + + | Address | [address] | | | [place] [address] | + + + | Home Phone [...] Pooja Valdez | ECON | [address] | | | | | [place] | | | | | [address] | | + + + + + Care Team Providers + +------+ + | Care Gas Plumber Name | Role | Phone | + [...] | | | | | gastrointest | [place], [place] | [facility] | | | | | inal | [address] | for Health | | | | | structure | Phone: | and Healing, | | | | | (HCC) | [phone] | Building 2 | | | | | Procedures | Fax: | [place], [place] | | | | | CONSULT TO | [phone] | [address] | | | | | GI PROCEDURE | | Phone: | | | | | UNIT: EGD | | [phone] | | | | | DE UPPER GI | | Fax: | | | | | ENDOSCOPY,BI | | [phone] | | | | | OPSY DE UP | | | | | | [...] + + | 04/21/ | Hospital | [facility] [address] | Rolando Gonzalez MD | | | 2018 | Encounter | [address] | [address] | | | | | [facility] | [place], [place] | | | | | [facility] | [address] | | | | | (MNP/OLD N) | [phone] | | | | | [place], [place] | | | | | | [address] | | | | | | [phone] | | | +--------+ + + + [...] hours or on weekends and holiday Hospital Systems Support Officer toll free [phone] ext. [phone] and have the GI doctor applications architect paged. The provider who performed your procedure [...] | | 0 | | | | [id number] | mouth once daily. | | | [...] 8:11 AM PDT PRE PROCEDURE NOTE: MR# [id number] Subjective: Mynor Valdez is a 48 y.o. 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 | | | The Olympus [id number] Gastroscope | | | #[id number] was introduced through the | | | [...] Initiated On: 04/21/2018 | | | 8:14 [facility] Letter to: HEMALATHA PACHECO PA-C | | [...] + + | Performing | Address | City/State/[facility] | Phone Number | | [...] - KANECHARLES | [address] | [place], [place] | | | [facility]US [facility]EL [place] [facility] | [address] | [address] | | | TESTS | | | [...] PDT | | | | | Until Maryr 04/21/18 at 0823 | | | | [...]
--- OUTSIDE RECORDS SUMMARY | ~2019-10-18 | XMS | Encounter Summary ---
Demographics + + + | Address | [address] | | | [place] [address] | + + + | Home Phone [...] [place] | | | | | [address] | | + + + + + Care Team Providers + +------+ + | Care Radio Interference Expert Name | Role | Phone | + +------+ + PCP | Unavailable | + +------+ + Encounter Details +--------+ + + + + | Date | Type | Department | Care Team | Description | +--------+ + + + + | 04/17/ | Discharge | | Summary, Discharge | D/C Summary ODDS | | 2006 | Summary-Tra | | | | | | nscribed | | | | +--------+ + + [...] documented as of this encounter Discharge Summaries Interface, Rewinder Operator Helper In - 03/10/2006 2:08 AM PDT [id number] DELMA PAULSON Admission Date: 02/18/2006 Discharge Date: 02/22/2006 Staff Physician: Luis Calixto M.D. Principal Final Diagnosis: Headache. Additional Diagnoses: 1. Intracranial hemorrhage, resolving. 2. Sinusitis. 3. Hypertension. Principal Procedure: Lumbar puncture done by fluoroscopy x2. Other Additional Procedures: 1. MRI. 2. Head CT. 3. IV antibiotics. 4. ID consult. 5. ENT consult. Reason for Admission: Please see admission note for complete details. Briefly, Mr. Valdez is a 35-year-old man with a history of recurrent otitis media and sinusitis who underwent an endoscopic sinus surgery about 10 days ago. The patient developed a headache the next day and was found to have an intracranial hemorrhage per CT. The patient was subsequently transferred to [facility] and was on the ENT Service from February 13, 2006, to February 16, 2006, where he was treated conservatively with IV steroids and antibiotics. The patient's headache improved, and he was discharged home. The patient returned to the ER on February 18, 2006, for worsening headache. He was initially seen at an ER in [place] and subsequently transferred to [facility] ER. At [facility], an LP was done which showed 125 white blood cells with 64 lymphocytes, 18 neutrophils, 7000 RBCs, glucose level of 63, and a protein level 175. The patient was given antibiotics for possible meningitis and subsequently transferred to the Medicine Service. Hospital Course: 1. Headache. The patient was admitted for possible meningitis given his lumbar puncture findings. Although, his white blood cell count was not significantly elevated, the ratio compared with red blood cells were concerning for a possible infection that was either incompletely treated or started. The patient was treated initially with ceftazidime, vancomycin, and Flagyl to cover gram negatives, gram positives, and anaerobes. The patient was also seen by the ID Consult Service. A repeat tap was done which showed less than 1 white blood cell. Given the repeat tap findings and the fact that the patient has been afebrile throughout this whole course, it was thought he likely does not have a meningitis. Per ID, antibiotics were stopped. The patient remained stable. His headaches did improve, and he was subsequently discharged. Per ENT records, we did discharge the patient on a short course of steroids called a Medrol pack. The patient was restarted on his moxifloxacin to treat the sinusitis but reported having some headaches and sweats associated with this antibiotic. He was subsequently switched to Augmentin 850 mg b.i.d. 2. Sinusitis. The patient was discharged with a 2-week course of Augmentin 850 mg p.o. b.i.d. The patient will follow up with his ENT doctor in [place], and the patient will also followup with ENT here at [facility]. 3. Hypertension. The patient was continued on his usual dose of metoprolol 50 mg daily. Condition on Discharge: Improved, stable. Diet: Sodium 2 g. Discharge Medication(s): 1. Augmentin 850 mg p.o. b.i.d. 2. Medrol pack. 3. Oxycodone 5 to 10 mg q.6-8 h. p.r.n. pain. 4. Metoprolol XL 50 mg daily. Followup: The patient will follow up at [facility] ENT Clinic with Dr. Santos Kwan and with Neurosurgery Clinic in about 2 weeks. The patient will also followup with Dr. Tavo Dietz, his [facility] ENT doctor. Jewell Dye M.D. Luis Calixto M.D. [facility] / [id number] / [id number] / [id number] / cc: Tavo Dietz M.D. FAX: [phone] Snatos Kwan MD, MPH, FACS [facility] ENT Service Electronically signed by Luis Calixto 03-09-2006 10:41:02 AM documented i n this encounter Plan of Treatment +--------+ + + + + | Date | Type | Specialty | Care Team | Description | +--------+ + + + + | 12/15/ | Office | Pre-operative | 2 [facility] [address] | | | 2019 | Visit | Medicine | [address] | | | | | | [place] [address] | | +--------+ + + + + | 01/04/ | Procedure | Surgery | | | | 2019 | Pass | | | | +--------+ + + + + | 01/25/ | Office | Otolaryngology | Santos Valdivia, | | | 2019 | Visit | | [address] | | | | | | [address] | | | | | | [place], [place] | | | | | | [address] | | | | | | [phone] | | | | | | | | +--------+ + + + + documented as of this encounter Visit Diagnoses Not on filedocumented in this encounter"
--- OUTSIDE RECORDS SUMMARY | ~2019-10-18 | XMS | Encounter Summary ---
Demographics + + + | Address | [address] | | | [place] [address] | + + + | Home Phone [...] [place] | | | | | [address] | | + + + + + Care Team Providers + +------+ + | Care Concrete Buildings Assembler Name | Role | Phone | [...] 2017 | Encounter | Center at [facility] [address] | MD [address] | | | | | [address] | [place], [place] | | | | | Mailcode: Center | [address] | | | | | for Health and | [phone] | | | | | Healing, [address] | | | | | | [place], [place] | | | | | | [address] | | | | | | [phone] | | | +--------+ + + + [...] | Office | Pre-operative | 2, [facility] [address] | | | 2020 | Visit | Medicine | [address] | | | | | | [place] [address] | | +--------+ + + + + | 01/04/ | Procedure | Surgery | | | | 2019 | Pass | | | | +--------+ + + + + | 01/25/ | Office | Otolaryngology | Santos Valdivia, | | | 2019 | Visit | | [address] [facility] | | | | | | [address] | | | | | | [place], [place] | | | | | | [address] | | | | | | [phone] | | | | | | | [...]
--- OUTSIDE RECORDS SUMMARY | ~2019-10-18 | XMS | Encounter Summary ---
Demographics + + + | Address | [address] | | | [place] [address] | + + + | Home Phone [...] [place] | | | | | [address] | | + + + + + Care Team Providers + +------+ + | Care Lead Burner Apprentice Name | Role | Phone | + [...] + + | 01/17/ | Hospital | [facility] [address] | Arvin Lerner, | | | 2018 - | Encounter | [address] | [address] | | | | | [place], [place] | [place], [place] | | | 01/19/ | | [address] | [address] | | | 2017 | | [phone] | [phone] | | | | | | | [...] - 01/19/2018 9:28 AM PDT [facility] RED SURGERY INPATIENT DISCHARGE SUMMARY [...] istently higher than 200 to call his [facility] care provider/nurse first assist to discuss adjust ment. 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 He should make a fol low up in 1 week with his PCP/nurse first assist to discuss further diabetes management. Additionally, his [...] mg Cpdr Commonly known as: CYMBALTA iron gly,aad-[id number]-becnpukd 150 mg iron-200 mg-250 mcg Tab L-METHYLFOLATE [...] yogurt or kefir. Pinky's Yogurt or Kefir, Toothpick Yogurt, and [employer] i Bhutanese Yogurt are common brands with beneficial probiotics. [...] are available over the counter at most [facility] [employer]. Nausea/Vomiting/Difficulty Swallowing Nausea/Vomiting/Difficulty swallowing: Could be from [...] hours per your instructions. Some medications, like [place], have Tylenol in it. Make sure you [...] (PCP) as this clinic does not provide [facility] chronic pain management services. When to [...] hours by calling the surgery office at [phone]. - After hours, weekends and holidays, you may call the hospital ethanol operator at [phone] an d have the regional flatbed truck driver Red Surgery Team paged. Destination Home Condition [...] Center 01/25/2018 8:30 AM Celestina Madrigal [facility] at [facility] 6th Floor [phone] F OOD AND NUT 01/25/2018 10:20 AM Kaylee Purcell [facility] at [facility] 6th Floor [phone] D ig Health 02/25/2018 11:00 AM Arvin Lerner Digestive [facility] at [facility] 6th Floor [phone] Di g Health 02/25/2018 1:00 PM Keylillian Castellano [facility] at [facility] 6th Floor [phone] FO OD AND NUT 04/15/2018 10:50 AM Tonia Greenberg Digestive [facility] at [facility] 6th Floor [phone] Dig [facility] 04/15/2018 11:30 AM Angie David [facility] at [facility] 6th Floor [phone] FOOD AND NUT 04/19/2018 2:50 PM Rian Sabillon [facility] 15th Floor [phone] Comprehensiv Discharging Physician: DANIEL Mclean Attending Physician: Arvin Lerner MD [facility] Red Surgery Pager# [phone] 9:28 AM 01/19/2018 documented in this enco [...] | | 0 | | | | gly,clz-C-[id number]-jb-xsj | mouth once daily. | | | [...] MD Resident Physician, PGY-1 Red Surgery pgr [phone] Associated attestation - Arvin Lerner MD - [...] | 2, [facility] [address] | | | 2019 | Visit | Medicine | [address] | | | | | | [place] [address] | | +--------+ + + + + [...] | | | | | | [place], [place] | | | | | | [address] | | | | | | [phone] | | | | | | | [...] + + + | BERNABE PEÑA | [address] | [place], [place] | | | [facility] | [address] | [address] | | | TESTS | | | [...] [facility] | [address] | [place] [address] | | | SERVICES, CORE | SHANA [...] [facility] | [address] | [place] [address] | | | SERVICES, CORE | PARK [...] | | | LABORATORY | | | TANZANIAN | | | SERVICES, | | | [...] | + + + + + | [facility] | [address] | [place] [address] | | | ANNA PENN | SHANA [...] DEPT OF | [address] | [place], [place] | | | CARDIOLOGY | [address] | [address] | | + + + + + [...] PEÑA | [address] | [place], [place] | | | DAYAN POINT OF CARE | [address] | [address] | | | TESTS | | | [...] MARQU[place] | [address] | [place], [place] | | | JESUS MANUEL [facility] OF CARE | [facility] | [address] | | | TESTS | | | [...] MARQU[place] | [address] | [place], [place] | | | DAYAN POINT OF CARE | [address] | [address] | | | TESTS | | | [...] + + + + + | BERNABE PEAÑ | [address] | [place], [place] | | | DAY[facility] POINT OF CARE | [address] | [address] | | | TESTS | | | [...] surgical contact: | | | Red surgery manager internet | | + + + CAPILLARY BLOOD [...] MARQUAM | [address] | [place], [place] | | | DAYAN POINT OF CARE | [address] | [address] | | | TESTS | | | [...] - MARQUAM | [address] | [place], [place] | | | DAYAN POINT OF CARE | [address] | [address] | | | TESTS | | | [...] + + + | BERNABE PEÑA | [address] | [place], [place] | | | DAYAN [facility] | [address] | [address] | | | TESTS | | | | + + + + + DIAGNOSTIC UPPER GASTROINTESTINAL ENDOSCOPY (01/17/2018 12:29 PM PDT) + + + | Narrative | Performed At | + + + | Arvin Lerner MD 01/17/2018 12:31 PM Date of Procedure: | | | 01/17/18 Primary Surgeon: Arvin Lerner MD Co Surgeon or | | | assistant financial accountant: Amara Downing MD, R6 Preoperative Diagnosis: Morbid [...] limb and a | | | 60mm Lynd stapler with white load was fired to create a | | | qrsg-vc-coxt jejunojejunostomy. The anastamosis was confirmed to | | | be widely patent and hemostatic. The common enterotomy was closed | | | by placed 3 stay sutures along the enterotomy for retraction and | | | firing an Lynd 60mm stapler with white load across the [...] was | | | entered. The 60mm Lynd stapler with blue load was placed and | | | fired transversely to start gastric pouch formation. The Lynd | | | was then fired longitudinally towards the angle of His. Dissection | | | was performed retrogastric to connect posterior and anterior | | | dissection planes and ensure adequate fundus exclusion. Additional | | | fires of the Lynd stapler were performed with blue loads to [...] | | enterotomy was closed with 60mm Lynd stapler with a white load. | | [...] assistants at surgery in | | | [facility] when qualified residents are available to furnish [...] | | | Arvin Lerner MD, FACS, [facility] Bariatric Surgery | | + + + LAPAROSCOPIC GASTRIC BYPASS AND BARBY-EN-Y GASTROENTEROSTOMY WITH BARBY LIMB 150 CM OR LESS ( 01/17/2018 12:29 PM PDT) + + + | Narrative | Performed At | + + + | Arvin Lerner MD 01/17/2018 12:31 PM Date of Procedure: | | | 01/17/18 Primary Surgeon: Arvin Lerner MD Co Surgeon or | | | assistant financial accountant: Amara Downing MD, R6 Preoperative Diagnosis: Morbid [...] limb and a | | | 60mm Lynd stapler with white load was fired to create a | | | utbq-nc-eveb jejunojejunostomy. The anastamosis was confirmed to | | | be widely patent and hemostatic. The common enterotomy was closed | | | by placed 3 stay sutures along the enterotomy for retraction and | | | firing an Lynd 60mm stapler with white load across the [...] was | | | entered. The 60mm Lynd stapler with blue load was placed and | | | fired transversely to start gastric pouch formation. The Lynd | | | was then fired longitudinally towards the angle of His. Dissection | | | was performed retrogastric to connect posterior and anterior | | | dissection planes and ensure adequate fundus exclusion. Additional | | | fires of the Lynd stapler were performed with blue loads to [...] | | enterotomy was closed with 60mm Lynd stapler with a white load. | | [...] | | | Arvin Lerner MD, FACS, [facility] Bariatric Surgery | | + + + [...] MARQUAM | [address] | [place], [place] | | | DAYAN POINT OF CARE | [address] | [address] | | | TESTS | | | [...] (H) | 70 - 99 mg/dL | NYCARLOS - | | | GLUCOSE, | | [...] - MARQUAM | [address] | [place], [place] | | | JESUS MANUEL HANLEY OF LYNN | [facility] | [address] | | | TESTS | | | [...] PEÑA | [address] | [place], [place] | | | DAYAN POINT OF CARE | [address] | [address] | | | TESTS | | | [...] + + | Insulin dependent diabetes mellitus ([facility]) Type II or unspecified type diabetes [...]
--- OUTSIDE RECORDS SUMMARY | ~2019-10-18 | XMS | Encounter Summary ---
Demographics + + + | Address | [address] | | | [place] [address] | + + + | Home Phone [...] [place] | | | | | [address] | | + + + + + Care Team Providers + +------+ + | Care Inventory Control Supervisor Name | Role | Phone | [...] | 2017 | Visit | Center at [facility] [address] | | BMI of 40.0-44.9, | | | | [address] | | adult (HCC) (Primary | | | | Mailcode: Center | | Dx) | | | | for Health and | | | | | | [facility] 2 | | | | | | [place], [place] | | | | | | [address] | | | | | | [phone] | | | +--------+---------+ + + + [...] of Class: 2:00/3:00 until 3:00/4:00 (60 minutes dant-pj-nrvh with patient) OBJECTIVE: Height: Ht Readings from [...] information. Yes Angie Hernandez RD, CNSC, LD [facility] Bariatrics [phone] documented in this enco unter Plan of Treatment +--------+ + + + + | Date | Type | Specialty | Care Team | Description | +--------+ + + + + | 12/15/ | Office | Pre-operative | 2, Andrés Chambers [address] | | 2019 | Visit | Medicine | [address] | | | | | | [place] [address] | | +--------+ + + + + | 01/04/ | Procedure | Surgery | | | 2019 | Pass | | | | +--------+ + + + + | 01/25/ | Office | Otolaryngology | Santos Valdivia, | | | 2019 | Visit | | [address] | | | | | | [address] | | | | | | [place], [place] | | | | | | [address] | | | | | | [phone] | | | | | | | | +--------+ + + + + documented as of this encounter Visit Diagnoses + + | Diagnosis | + + | Morbid obesity with BMI of 40.0-44.9, adult (HCC) - Primary | + + documented in this encounter
--- OUTSIDE RECORDS SUMMARY | ~2019-10-18 | XMS | Encounter Summary ---
Demographics + + + | Address | [address] | | | [place] [address] | + + + | Home Phone [...] + + + | Author | [facility] | + + + | Organization | [facility] | + + + | Address | Unknown | + + + | Phone | Unavailable | + + + Support + + + + + | Name | Relationship | Address | Phone | + + + + + | Pooja Valdez | ECON | [address] | | | | | [place] | | | | | [address] | | + + + + + Care Team Providers + +------+ + | Care Team Cdl Driver Name | Role | Phone | + +------+ + | Rian Sanchez MD | PCP | | + +------+ + Encounter Details +--------+ + + + + | Date | Type | Department | Care Team | Description | +--------+ + + + + | 11/03/ | Abstract | Cardiology | Poly Joseph | | | 2016 | | Preventive at [facility] | [address] | | | | | [address] | [address] [place], | | | | | Mailcode: [place] | [place] [address] | | | | | [facility] | [phone] | | | | | and Healing, | | | | | | [address] | | | | | | [place], [place] | | | | | | [address] | | | | | | [phone] | | | +--------+ + + + [...] | | | | | [place] [address] | | +--------+ + + + + [...] Rd | | | | | | [place], [place] | | | | | | [address] | | | | | | [phone] | | | | | | | [...] | + + + + + | [facility] - | [address] | [place] | [phone] | | [place] | | | | + + + + + documented in this encounter Visit Diagnoses Not on filedocumented in this encounter"
--- OUTSIDE RECORDS SUMMARY | ~2019-10-18 | XMS | Encounter Summary ---
Demographics + + + | Address | [address] | | | [place] [address] | + + + | Home Phone [...] Author | [facility] | + + + | Organization | [facility] | + + + | Address | Unknown | + + + | Phone | Unavailable | + + + Support + + + + + | Name | Relationship | Address | Phone | + + + + + | Pooja Valdez | ECON | [address] | | | | | [place] | | | | | [address] | | + + + + + Care Team Providers + +------+ + | Care Boom Conveyor Operator Name | Role | Phone | [...] | | | | | | | [facility] | | | | | | | Health and | | | | | | | Healing, | | | | | | | [address] | | | | | | | [place], [place] | | | | | | | [address] | | | | | | | Phone: | | | | | | | [phone] | | | | | | | Fax: | | | | | | | [phone] | +--------+--------+ + + + + Encounter [...] [address] | [address] | Insulin dependent | | | | Mailcode: Center | [place], [place] | diabetes mellitus | | | | for Health and | [address] | ([facility]) | | | | Healing, [facility] 2 | | | | | | [place], [place] | | | | | | [address] | | | | | | [phone] | | | +--------+---------+ + + + [...] of visit: 1:03 to 1:18 (15 minutes gwqf-mt-ohhs with patient) Surgery: Gastric Bypass Date of [...] broth soup, refried beans, low fat chili, northern irish yogurt, has tried tuna and salmon pouches but make stomach hurt. 0 Fluid choices: water, Isopure, crystal light Supplementation: barimelts MVI, Vitamin D, sublingual B12, vitafusion calcium-2 per day. Assessment: Following Bariatric Diet Protocol: Yes Meeting protein goals: Yes Meeting fluid goals: Yes Fluids from meals: Yes Plan: Increase calcium to 8895-7991 mg per day Reviewed nutrition goals after [...] multivitamin & mineral (with iron) supplement, 2/day -8533-3442 mg calcium citrate with vitamin D/day (take in divided doses, not within 2 hour s of multivitamin or iron supplement) -500 mcg/day sublingual B12 supplement (or monthly injections) Continued to reinforce importance of mindful eating. Continue to increase physical activity. Follow up in [address],LD Pager# [phone] Phone: [phone] documented in this en counter Plan of Treatment +--------+ + + + + | Date | Type | Specialty | Care Team | Description | +--------+ + + + + | 12/15/ | Office | Pre-operative | 2, [facility] [address] | | | 2019 | Visit | Medicine | [address] | | | | | | [place] [address] | | +--------+ + + + + | 01/04/ | Procedure | Surgery | | | | 2019 | Pass | | | | +--------+ + + + + | 01/25/ | Office | Otolaryngology | Santos Valdivia, | | | 2019 | Visit | | [address] | | | | | | [address] | | | | | | [place], [place] | | | | | | [address] | | | | | | [phone] | | | | | | | | +--------+ + + + + documented as of this encounter Procedures + +--------+ + + + | Procedure Name | Priori | Date/Time | Associated Diagnosis | Comments | | | ty | | | | + +--------+ + + + | IA MNT RE-ASSESSMNT | Routin | 02/25/2018 | S/P gastric bypass | | | X15MIN | e | 1:35 PM | Insulin dependent | | | | | PDT | diabetes mellitus | | | | | | ([facility]) | | + +--------+ + + + [...]
--- OUTSIDE RECORDS SUMMARY | ~2019-10-18 | XMS | Encounter Summary ---
Demographics + + + | Address | [address] | | | [place] [address] | + + + | Home Phone [...] [place] | | | | | [address] | | + + + + + Care Team Providers + +------+ + | Care Ore Dryer Name | Role | Phone | + [...] Record | | 2017 | | at [facility] [address] | | Review (GEN Records | | | | Yang Sophie Mailcode: | | Checklist ) | | | | [address] | | | | | | Health and Healing, | | | | | | [facility] | | | | | | Floor [place], [place] | | | | | | [address] | | | | | | [phone] | | | +--------+ + + + [...] CD/ IMPAX/Not Available Comments Referring Provider notes [facility] Yes- Epic N/A Internal Referral Last EKG (REPORT ONLY) Note: Tracings needed if being seen for abnormal ECG [facility] Yes- Epic N/A Last Echo images and report no Last Stress Test images and report [facility] Yes- Care Everywhere No images avail Last Cardiac Catheterization images and report no Last Holter or Event monitor report only no N/A Labs (BMP, Lipids, TSH, Hemoglobin A1C in last 6 months) [facility] Yes - Epic N/A Last Device Check (schedule device check if due) no N/A Last Cardiac MRI report and images if available no Cardiac CTA report and images if available no Patient Preferred Lab [facility] N/A N/A N/A Additional Comments: documented in this enco unter Plan of Treatment +--------+ + + + + | Date | Type | Specialty | Care Team | Description | +--------+ + + + + | 12/15/ | Office | Pre-operative | 2, [facility] [address] | | | 2019 | Visit | Medicine | [address] | | | | | | [place] [address] | | +--------+ + + + + [...] Rd | | | | | | [place], [place] | | | | | | [address] | | | | | | [phone] | | | | | | | | +--------+ + + + + documented as of this encounter Visit Diagnoses Not on filedocumented in this encounter"
--- OUTSIDE RECORDS SUMMARY | ~2019-10-18 | XMS | Encounter Summary ---
Demographics + + + | Address | [address] | | | [place] [address] | + + + | Home Phone [...] [place] | | | | | [address] | | + + + + + Care Team Providers + +------+ + | Care Mine Surveyor Name | Role | Phone | + [...] | 2018 | Event | [address] [facility] | [address] | | | | | [facility] | [facility] | | | | | Hospital Admitting | [place], [place] | | | | | Desk Located on the | [address] | | | | | 9th floor | [phone] | | | | | [place], [place] | | | | | | [address] | Jason Jordan MD | | | | | | [address] | | | | | | [facility] | | | | | | [place], [place] | | | | | | [address] | | | | | | [phone] | | | | | | | [...] [address] | | | | | | [place] [address] | | +--------+ + + + + [...] Rd | | | | | | [place] | | | | | | [address] | | | | | | [phone] | | | | | | | [...]
--- OUTSIDE RECORDS SUMMARY | ~2019-10-18 | XMS | Encounter Summary ---
Demographics + + + | Address | [address] | | | [place] [address] | + + + | Home Phone [...] [place] | | | | | [address] | | + + + + + Care Team Providers + +------+ + | Care Impression Printer Name | Role | Phone | + [...] as of this encounter Progress Notes Interface, Concrete Block Molder In - 03/24/2006 2:09 AM PDT [id number] DELMA PAULSON [id number] Clinic Date: 03/09/2006 Clinic: Chief Complaint: Followup [...] difficulties. Santos Kwan MD, MPH, FACS Director, [facility] Professor of Otolaryngology/Head and Neck Surgery [facility] / [id number] / [id number] / [id number] / [id number] Electronically signed by Santos Kwan 03-23-2006 09:01:19 AM documented i n this encounter Plan of Treatment +--------+ + + + + | Date | Type | Specialty | Care Team | Description | +--------+ + + + + | 12/15/ | Office | Pre-operative | 2, [facility] [address] | | | 2020 | Visit | Medicine | [address] | | | | | | [place] [address] | | +--------+ + + + + [...] Rd | | | | | | [place] | | | | | | [address] | | | | | | [phone] | | | | | | | | +--------+ + + + + documented as of this encounter Visit Diagnoses Not on filedocumented in this encounter"
--- OUTSIDE RECORDS SUMMARY | ~2019-10-18 | XMS | Encounter Summary ---
Demographics + + + | Address | [address] | | | [place] [address] | + + + | Home Phone [...] [place] | | | | | [address] | | + + + + + Care Team Providers + +------+ + | Care Security Trainer Name | Role | Phone | + [...] 2017 | | [address] | [address] | Y GASTRIC BYPASS | | | | Rd [facility] | [place], [place] | | | | | Hospital Admitting | [address] | | | | | Desk Located on the | [phone] | | | | | 9th floor | | | | | | [place], [place] | | | | | | [address] | | | +--------+---------+ + + + [...] Greenberg ACNP - 01/19/2018 9:28 AM PDT [facility] RED [facility]GERY INPATIENT DISCHARGE SUMMARY Author: DANIEL [...] istently higher than 200 to call his [facility] provider/trauma therapist to discuss adjust ment. 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 He should make a fol low up in 1 week with his PCP/trauma therapist to discuss further diabetes management. Additionally, his [...] mg Cpdr Commonly known as: CYMBALTA iron gly,[id number]-[id number] 150 mg iron-200 mg-250 mcg Tab L-METHYLFOLATE [...] or Kefir, [place]oney[place] Yogurt, and Chioban i Kittitian Yogurt are common brands with beneficial probiotics. [...] over the counter at most [facility] [employer] stores. Nausea/Vomiting/Difficulty Swallowing Nausea/Vomiting/Difficulty swallowing: Could be [...] hours per your instructions. Some medications, like Hibernia, have Tylenol in it. Make sure you [...] (PCP) as this clinic does not provide [facility] services. When to Call [...] hours by calling the surgery office at [phone]. - After hours, weekends and holidays, you may call the hospital transit mixer operator at [phone] an d have the duplication specialist Red Surgery Team paged. Destination Home Condition [...] Phone Center 01/25/2018 8:30 AM Celestina Madrigal [facility] at [facility] 6th Floor [phone] F OOD AND NUT 01/25/2018 10:20 AM [facility] 6th Floor [phone] D ig Health 02/25/2018 11:00 AM Arvin Lerner [facility] at [facility] 6th Floor [phone] Di g Health 02/25/2018 1:00 PM Keykwame Castellano [facility] at [facility] 6th Floor [phone] FO OD AND NUT 04/15/2018 10:50 AM Tonia Greenberg [facility] at [facility] 6th Floor [phone] Dig Hea lt 04/15/2018 11:30 AM Angie Hernandez [facility] at [facility] 6th Floor [phone] FOOD AND NUT 04/19/2018 2:50 PM Rian Sabillon [facility] at [facility] 15th Floor [phone] Comprehensiv Discharging Physician: DANIEL Mclean Attending Physician: Arvin Lerner MD [facility] Red Surgery Pager# [phone] 9:28 AM 01/19/2018 documented in this enco [...] | | 0 | | | | gly,[id number] | mouth once daily. | | | [...] MD Resident Physician, PGY-1 Red Surgery pgr [phone] Associated attestation - Arvin Lerner MD - [...] Rd | | | | | | [place] [address] | | +--------+ + + + + [...] Rd | | | | | | [place], [place] | | | | | | [address] | | | | | | [phone] | | | | | | | [...] PEÑA | [address] | [place], [place] | | | JESUS MANUEL H[facility] OF [place]NN | [facility] | [address] | | | TESTS | | | [...] [facility] | [address] | [place] [address] | | | SERVICES, CORE | PARK [...] [facility] | [address] | [place] [address] | | | SERVICES, CORE | PARK [...] | | | LABORATORY | | | KAZAKH | | | SERVICES, | | | [...] | + + + + + | [facility] | [address] | [place] [address] | | | FILI, [facility] | [address] | | | + [...] DEPT OF | [address] | [place], [place] | | | CARDIOLOGY | [address] | [address] | | + + + + + [...] PEÑA | [address] | [place], [place] | | | J[facility] MANU[facility] [place] | [facility] | [address] | | | TESTS | | | [...] GAVINAM | [address] | [place], [place] | | | JESUS MANUEL HANLEY OF CARE | [facility] | [address] | | | TESTS | | | [...] (H) | 70 - 99 mg/dL | [facility] - | | | GLUCOSE, | | [...] MARIANA | [address] | [place], [place] | | | [facility]AN [place]INT OF CARE | [address] | [address] | | | TESTS | | | [...] PEÑA | [address] | [place], [place] | | | JESUS MANU[facility] [place] | [facility] | [address] | | | TESTS | | | [...] surgical contact: | | | Red surgery project intern | | + + + CAPILLARY [...] MARQUAM | [address] | [place], [place] | | | JESUS MANUEL HANLEY OF CARE | [facility] | [address] | | | TESTS | | | [...] (H) | 70 - 99 mg/dL | [facility] - | | | GLUCOSE, | | [...] MARIANA | [address] | [place], [place] | | | [facility] | [address] | [address] | | | TESTS | | | [...] PEÑA | [address] | [place], [place] | | | MART HANLEY | [facility] | [address] | | | TESTS | | | | + + + + + DIAGNOSTIC UPPER GASTROINTESTINAL ENDOSCOPY (01/17/2018 12:29 PM PDT) + + + | Narrative | Performed At | + + + | Arvin Lerner MD 01/17/2018 12:31 PM Date of Procedure: | | | 01/17/18 Primary Surgeon: Arvin Lerner MD Co Surgeon or | | | social worker assistant: Amara Downing MD, R6 Preoperative Diagnosis: [...] limb and a | | | 60mm Tornado stapler with white load was fired to create a | | | mfpy-gg-brbe jejunojejunostomy. The anastamosis was confirmed to | | | be widely patent and hemostatic. The common enterotomy was closed | | | by placed 3 stay sutures along the enterotomy for retraction and | | | firing an Tornado 60mm stapler with white load across the [...] was | | | entered. The 60mm Tornado stapler with blue load was placed and | | | fired transversely to start gastric pouch formation. The Tornado | | | was then fired longitudinally towards the angle of His. Dissection | | | was performed retrogastric to connect posterior and anterior | | | dissection planes and ensure adequate fundus exclusion. Additional | | | fires of the Tornado stapler were performed with blue loads to [...] | | enterotomy was closed with 60mm Tornado stapler with a white load. | | [...] MD Co Surgeon or | | | social worker assistant: Amara Downing MD, R6 Preoperative Diagnosis: [...] limb and a | | | 60mm Tornado stapler with white load was fired to create a | | | bbpz-dr-lwxe jejunojejunostomy. The anastamosis was confirmed to | | | be widely patent and hemostatic. The common enterotomy was closed | | | by placed 3 stay sutures along the enterotomy for retraction and | | | firing an Tornado 60mm stapler with white load across the [...] was | | | entered. The 60mm Tornado stapler with blue load was placed and | | | fired transversely to start gastric pouch formation. The Tornado | | | was then fired longitudinally towards the angle of His. Dissection | | | was performed retrogastric to connect posterior and anterior | | | dissection planes and ensure adequate fundus exclusion. Additional | | | fires of the Tornado stapler were performed with blue loads to [...] | | enterotomy was closed with 60mm Tornado stapler with a white load. | | [...] GAVINAM | [address] | [place], [place] | | | JESUS MANUEL HANLEY OF CARE | [facility] | [address] | | | TESTS | | | [...] (H) | 70 - 99 mg/dL | [facility] - | | | GLUCOSE, | | [...] MARIANA | [address] | [place], [place] | | | [facility]INT OF CARE | [address] | [address] | | | TESTS | | | [...] MARIANA | [address] | [place], [place] | | | JES[facility] MANUEL H[facility] OF [place] | [facility] | [address] | | | TESTS | | | [...]
--- OUTSIDE RECORDS SUMMARY | ~2019-10-18 | XMS | Encounter Summary ---
Demographics + + + | Address | [address] | | | [place] [address] | + + + | Home Phone [...] [place] | | | | | [address] | | + + + + + Care Team Providers + +------+ + | Care Guide Domestic Tour Name | Role | Phone | + +------+ + | Hemalatha Lawrence PA-C | PCP | | + +------+ + Encounter Details +--------+ + + + + | Date | Type | Department | Care Team | Description | +--------+ + + + + | 12/17/ | Abstract | Digestive Health | Clinic, Surgery | | | 2018 | | [place] at [facility] [address] | | | | | | [address] | | | | | | Mailcode: Center | | | | | | for Health and | | | | | | Healing, Building [address] | | | | | | [place], [place] | | | | | | [address] | | | | | | [phone] | | | +--------+ + + + [...] 12/15/ | Office | Pre-operative | 2, [facility] [address] | | 2019 | Visit | Medicine | [address] | | | | | | [place] [address] | | +--------+ + + + + [...] Rd | | | | | | [facility] [place] | | | | | | [address] | | | | | | [phone] | | | | | | | | +--------+ + + + + documented as of this encounter Visit Diagnoses Not on filedocumented in this encounter"
--- OUTSIDE RECORDS SUMMARY | ~2019-10-18 | XMS | Encounter Summary ---
Demographics + + + | Address | [address] | | | [place] [address] | + + + | Home Phone [...] [place] | | | | | [address] | | + + + + + Care Team Providers + +------+ + | Care Account Review Specialist Name | Role | Phone | + +------+ + | No Pcp Per Patient | PCP | Unavailable | + +------+ + Reason for Visit + + + | Reason | Comments | + + + | Follow-up visit | Pt states no change since last visit. | + + + Encounter Details +--------+---------+ + + + | Date | Type | Department | Care Team | Description | +--------+---------+ + + + | 06/03/ | Office | Otolaryngology | Santos Kwan, | Chronic Ethmoidal | | 2005 | Visit | Sinus Services [address] | [address] | Sinusitis; Chronic | | | | [address] | [place], [place] | Maxillary Sinusitis | | | | Mailcode: OP01 | [address] | | | | | [facility] | [phone] | | | | | [place], [place] | | | | | | [address] | | | | | | [phone] | | | +--------+---------+ + + + [...] this encounter Progress Notes Santos Kwan - 06/03/2006 1:37 PM PDTThis office note has been dictated. documented in this encou nter Plan of Treatment +--------+ + + + + | Date | Type | Specialty | Care Team | Description | +--------+ + + + + | 12/15/ | Office | Pre-operative | 2, [facility] [address] | | | 2019 | Visit | Medicine | [address] | | | | | | [place] [address] | | +--------+ + + + + [...] Rd | | | | | | [place], [place] | | | | | | [address] | | | | | | [phone] | | | | | | | | +--------+ + + + + + + +--------+ + + | Name | Type | Priori | Associated Diagnoses | Order Schedule | | | | ty | | | + + +--------+ + + | NASAL ENDOSCOPY, | Procedures | Routin | Chronic Ethmoidal | Ordered: 06/03/2006 | | DIAGNOSTIC | | e | [...] CT SINUS WO CONTRAST | Routin | 07/13/2006 | Chronic Ethmoidal | Results for this | | ROUTINE | e | 1:51 PM | Sinusitis Chronic | procedure are in the | | | | PDT | Maxillary Sinusitis | results section. | + +--------+ + + + documented in this encounter Results CT SINUS LANDMARX PROTOCOL WO (07/13/2006 1:51 PM PDT) + + + + + + | Component | Value | Ref Range | Performed | Pathologist | | | | | At | Signature | + + + + + + | CT SINUS | Radiologist 1: ALEJANDRA, | | | | | [place] | LENA Ortega M.D.CT OF THE | | | | | PROTOCOL WO | PARANASAL SINUSES: | | | | | | 07/13/2006 Dictated | | | | | | 07/13/2006 No clinical | | | | | | information provided. | | | | | | Axial and coronal images | | | | | | were obtained through | | | | | | the paranasal | | | | | | sinuseswithout | | | | | | intravenous contrast and | | | | | | compared to the brain | | | | | | MR of02/20/2006 and the | | | | | | sinus CT of 02/13/2006. | | | | | | The patient is status | | | | | | post bilateral | | | | | | uncinectomy, | | | | | | internalethmoidectomy, | | | | | | partial middle turbinate | | | | | | resection, all of which | | | | | | werepresent on the | | | | | | prior study. As | | | | | | before, the right | | | | | | sphenoid sinus | | | | | | isopacified, and the | | | | | | left contains thickened | | | | | | mucosa. There is a | | | | | | largeretention cyst on | | | | | | the floor of the right | | | | | | maxillary sinus and | | | | | | mucosalthickening in | | | | | | both maxillary sinuses. | | | | | | Aeration of the | | | | | | frontal andethmoid | | | | | | sinuses has improved | | | | | | since the prior study. | | | | | | There is atympanostomy | | | | | | tube on the left which | | | | | | was probably present on | | | | | | the priorstudy. There | | | | | | is a limited canal | | | | | | wall-up or cortical | | | | | | mastoidectomy onthe | | | | | | right side which was | | | | | | present previously. | | | | | | The right mastoid | | | | | | aircells are partially | | | | | | opacified. There is no | | | | | | mass in the nasal | | | | | | cavity,but the | | | | | | nasopharyngeal soft | | | | | | tissues are slightly | | | | | | more full on the | | | | | | leftthan on the right. | | | | | | IMPRESSION: 1. | | | | | | Improved aeration | | | | | | since the prior study | | | | | | but with | | | | | | persistentdisease | | | | | | especially in the | | | | | | completely opacified | | | | | | right sphenoid | | | | | | sinus.Slight asymmetry | | | | | | of the nasopharyngeal | | | | | | soft tissues, santillan on | | | | | | theleft could be assess | | | | | | further by clinical | | | | | | inspection. 2. Status | | | | | | post limited right | | | | | | mastoidectomy, present | | | | | | on prior studies. 3. | | | | | | Low density within the | | | | | | right frontal lobe is | | | | | | not seen well on | | | | | | thisstudy but | | | | | | corresponds to the | | | | | | signal abnormality in | | | | | | this location onthe MR. | | | | | | There are also | | | | | | punctate opacities in | | | | | | the superolateral | | | | | | aspectof the sclera on | | | | | | each side, present on | | | | | | the prior CT but | | | | | | partiallyobscured by | | | | | | streak artifact from | | | | | | metal in the teeth. | | | | | | END IMPRESSION: | | | | + + + + + + + + | Specimen | + + | | + + + +---------+ + + | Performing | Address | City/State/Zipcode | Phone Number | | Organization | | | | + +---------+ + + | [facility] DEPARTMENT OF | | | | | RADIOLOGY | | | | + +---------+ + + documented in this encounter Visit Diagnoses + + | Diagnosis | + + | Chronic ethmoidal sinusitis | + + | Chronic maxillary sinusitis | + + documented in this encounter"
--- OUTSIDE RECORDS SUMMARY | ~2019-10-18 | XMS | Encounter Summary ---
Demographics + + + | Address | [address] | | | [place] [address] | + + + | Home Phone [...] [place] | | | | | [address] | | + + + + + Care Team Providers + +------+ + | Care Tank Truck Mechanic Name | Role | Phone | + [...] | | | Ave Mailcode: [address] | [place], [place] | | | | | [facility] | [address] | | | | | and Kailyn, | | | | | | [place] [address], [facility] | | | | | | Floor [place], [place] | | | | | | [address] | | | | | | [phone] | | | +--------+ + + + [...] | | | | | | [place] [address] | | +--------+ + + + + [...] Rd | | | | | | [place] | | | | | | [address] | | | | | | [phone] | | | | | | | | +--------+ + + + + documented as of this encounter Visit Diagnoses Not on filedocumented in this encounter"
--- OUTSIDE RECORDS SUMMARY | ~2019-10-18 | XMS | Encounter Summary ---
Demographics + + + | Address | [address] | | | [place] [address] | + + + | Home Phone [...] [place] | | | | | [address] | | + + + + + Care Team Providers + +------+ + | Care Brim Raiser Name | Role | Phone | + [...] 2017 | on | Center at [facility] [address] | ACNP [address] | | | | | [address] | [place], [place] | | | | | Mailcode: Center | [address] | | | | | for Health and | [phone] | | | | | Healing, [address] | | | | | | [place], [place] | | | | | | [address] | | | | | | [phone] | | | +--------+ + + + [...] | 12/15/ | Office | Pre-operative | [facility] [address] | | | 2019 | Visit | Medicine | [address] | | | | | | [place] [address] | | +--------+ + + + + | 01/04/ | Procedure | Surgery | | | | 2019 | Pass | | | | +--------+ + + + + | 01/25/ | Office | Otolaryngology | Santos Valdivia, | | | 2019 | Visit | | [address] | | | | | | [address] | | | | | | [place], [place] | | | | | | [address] | | | | | | [phone] | | | | | | | | +--------+ + + + + documented as of this encounter Visit Diagnoses Not on filedocumented in this encounter"
--- OUTSIDE RECORDS SUMMARY | ~2019-10-18 | XMS | Encounter Summary ---
Demographics + + + | Address | [address] | | | [place] [address] | + + + | Home Phone [...] | Author | [facility] | + + + | Organization | [facility] | + + + | Address | Unknown | + + + | Phone | Unavailable | + + + Support + + + + + | Name | Relationship | Address | Phone | + + + + + | Pooja Valdez | ECON | [address] | | | | | [place] | | | | | [address] | | + + + + + Care Team Providers + +------+ + | Care Port Crane Operator Name | Role | Phone [...] 2017 | Encounter | Center at [facility] [address] | MD [address] | | | | | [address] | [place], [place] | | | | | Mailcode: Center | [address] | | | | | for Health and | | | | | | [facility] 2 | | | | | | [place], [place] | | | | | | [address] | | | | | | | [...] Rd | | | | | | [place] [address] | | +--------+ + + + + [...] [place] | | | | | | [address] | | | | | | [phone] | | | | | | | | +--------+ + + + + documented as of this encounter Visit Diagnoses Not on filedocumented in this encounter"
--- OUTSIDE RECORDS SUMMARY | ~2019-10-18 | XMS | Encounter Summary ---
Demographics + + + | Address | [address] | | | [place] [address] | + + + | Home Phone [...] [place] | | | | | [address] | | + + + + + Care Team Providers + +------+ + | Care Acrobatic Dancer Name | Role | Phone | + +------+ + | Hemalatha Lawrence PA-C | PCP | | + +------+ + Reason for Visit + + + | Reason | Comments | + + + | Nausea and vomiting | | + + + Encounter Details +--------+ + + + + | Date | Type | Department | Care Team | Description | +--------+ + + + + | 03/22/ | Telephone | Digestive Health | Arvin Altamirano, | Nausea and vomiting | | 2018 | | Center at [facility] [address] | MD [address] | | | | | [address] | [place], [place] | | | | | Mailcode: [place] | [address] | | | | | for Health and | | | | | | [facility] 2 | | | | | | [facility] [place] | | | | | | [address] | | | | | | | [...] 2, [facility] Md Marquita FUNEZ | | | 2019 | Visit | Medicine | [address] | | | | | | [place] [address] | | +--------+ + + + + | 01/04/ | Procedure | Surgery | | | | 2019 | Pass | | | | +--------+ + + + + | 01/25/ | Office | Otolaryngology | Santos Valdivia, | | | 2019 | Visit | | MD Marquita ePnn | | | | | | [address] | | | | | | [place], [place] | | | | | | [address] | | | | | | [phone] | | | | | | | | +--------+ + + + + documented as of this encounter Visit Diagnoses Not on filedocumented in this encounter"
--- OUTSIDE RECORDS SUMMARY | ~2019-10-18 | XMS | Encounter Summary ---
Demographics + + + | Address | [address] [facility] [address] [facility] | | | [place] [address] | + + + | Home Phone [...] [place] | | | | | [address] | | + + + + + Care Team Providers + +------+ + | Care Swinging Cut Off Saw Operator Name | Role | Phone | + +------+ + | Hemalatha Lawrence PA-C | PCP | | + +------+ + Encounter Details +--------+ + + + + | Date | Type | Department | Care Team | Description | +--------+ + + + + | 03/28/ | Abstract | Digestive Health | Clinic, Surgery | | | 2018 | | [place] at [facility] [address] | | | | | | [address] | | | | | | Mailcode: Center | | | | | | for Health and | | | | | | Healing, Building [address] | | | | | | [place], [place] | | | | | | [address] | | | | | | [phone] | | | +--------+ + + + [...] Office | Pre-operative | 2, Andrés Chambers [address] | | | 2020 | Visit | Medicine | [address] | | | | | | [place] [address] | | +--------+ + + + + [...] Rd | | | | | | [facility] [place] | | | | | | [address] | | | | | | [phone] | | | | | | | | +--------+ + + + + documented as of this encounter Visit Diagnoses Not on filedocumented in this encounter"
--- OUTSIDE RECORDS SUMMARY | ~2019-10-18 | XMS | Encounter Summary ---
Demographics + + + | Address | [address] | | | [place] [address] | + + + | Home Phone [...] [place] | | | | | [address] | | + + + + + Care Team Providers + +------+ + | Care District Service Manager Name | Role | Phone | [...] | nasal | HEAD & NECK | [place], [place] | | | | | endoscopy | [facility] | [address] | | | | | | [address] | Phone: | | | | | | [address] | [phone] | | | | | | [place], | Fax: | | | | | | [place] [address] | [phone] | | | | | | Phone: | | | | | | | [phone] | | | | | | | Fax: | | | | | | | [phone] | | +--------+--------+ + + + + [...] | | | [address] | [place], [place] | Dx); Atypical Face | | | | Mailcode: OP01 | [address] | Pain; Chronic | | | | [facility] | [phone] | Maxillary Sinusitis | | | | [place], [place] | | | | | | [address] | | | | | | [phone] | | | +--------+---------+ + + + [...] 36 y.o. male who presents to the [facility] for fol low up of [...] cted. Santos Kwan M.D., M.P.H., F.A.C.S. Director, [facility] Professor and Chief, Rhinology and [...] Rd | | | | | | [place] [address] | | +--------+ + + + + [...] Rd | | | | | | [place], [place] | | | | | | [address] | | | | | | [phone] | | | | | | | [...]
--- OUTSIDE RECORDS SUMMARY | ~2019-10-18 | XMS | Encounter Summary ---
Demographics + + + | Address | [address] | | | [place] [address] | + + + | Home Phone | | + + + | Preferred Language | Unknown | + + + | Marital Status | | + + + | Scientologist Affiliation | NRP | + + + [...] [place] | | | | | [address] | | + + + + + Care Team Providers + +------+ + | Care Tdp Displays Analyst Name | Role | Phone | [...] as of this encounter Progress Notes Interface, Licensed Electrician In - 06/05/2006 2:05 AM PDT [id number] 06/03/2006 06/03/2006 [id number] DELMA PAULSON [id number] [place] [address] [place] [address] or Department of Otolaryngology - [facility] June 03, 2006 Tavo Dietz M.D. [address] [place] [address], [address] [place] [address] RE: KHURRAM NGUYỄN MR #: [id number] Dear Dr. Dietz: It was my pleasure [...] sincerely, Santos Kwan MD, MPH, FACS Director, [facility] Professor of Otolaryngology/Head and Neck Surgery [facility] / [id number] / [id number] / [id number] / documented i n this encounter Plan of Treatment +--------+ + + + + | Date | Type | Specialty | Care Team | Description | +--------+ + + + + | 12/15/ | Office | Pre-operative | 2, [facility] [address] | | | 2020 | Visit | Medicine | [address] | | | | | | [place] [address] | | +--------+ + + + + [...] Rd | | | | | | [place] | | | | | | [address] | | | | | | [phone] | | | | | | | | +--------+ + + + + documented as of this encounter Visit Diagnoses Not on filedocumented in this encounter"
--- OUTSIDE RECORDS SUMMARY | ~2019-10-18 | XMS | Encounter Summary ---
Demographics + + + | Address | [address] | | | [place] [address] | + + + | Home Phone [...] [place] | | | | | [address] | | + + + + + Care Team Providers + +------+ + | Care Temporary Office Assistant Name | Role | Phone | [...] | | | [address] | [place], [place] | Maxillary Sinusitis | | | | Mailcode: OP01 | [address] | | | | | [facility] | [phone] | | | | | [place], [place] | | | | | | [address] | | | | | | [phone] | | | +--------+---------+ + + + [...] | 2, [facility] [address] | | | 2019 | Visit | Medicine | [address] | | | | | | [place] [address] | | +--------+ + + + + [...] Rd | | | | | | [place], [place] | | | | | | [address] | | | | | | [phone] | | | | | | | [...] | | + +---------+ + + | [facility] DEPARTMENT OF | | | | | RADIOLOGY | | | | + +---------+ + + documented in this encounter Visit Diagnoses + + | Diagnosis | + + | Chronic ethmoidal sinusitis | + + | Chronic maxillary sinusitis | + + documented in this encounter"
--- OUTSIDE RECORDS SUMMARY | ~2019-10-18 | XMS | Encounter Summary ---
Demographics + + + | Address | [address] | | | [place] [address] | + + + | Home Phone [...] [place] | | | | | [address] | | + + + + + Care Team Providers + +------+ + | Care Clinical Office Technician Name | Role | Phone | [...] | | | | Mailcode: Center | [place], [place] | | | | | for Health and | [address] | | | | | Healing, Building 2 | | | | | | [place], [place] | | | | | | [address] | | | | | | [phone] | | | +--------+ + + + [...] | Office | Pre-operative | 2, [facility] [address] | | | 2020 | Visit | Medicine | [address] | | | | | | [place] [address] | | +--------+ + + + + | 01/04/ | Procedure | Surgery | | | | 2019 | Pass | | | | +--------+ + + + + | 01/25/ | Office | Otolaryngology | Santos Valdivia, | | | 2019 | Visit | | [address] | | | | | | [address] | | | | | | [place] | | | | | | [address] | | | | | | [phone] | | | | | | | | +--------+ + + + + documented as of this encounter Visit Diagnoses Not on filedocumented in this encounter"
--- OUTSIDE RECORDS SUMMARY | ~2019-10-18 | XMS | Encounter Summary ---
Demographics + + + | Address | [address] | | | [place] [address] | + + + | Home Phone [...] [place] | | | | | [address] | | + + + + + Care Team Providers + +------+ + | Care Heater Engineer Helper Name | Role | Phone | [...] + + | 05/04/ | Hospital | [facility] [address] | Bob Downing | | | 2018 | Encounter | [address] | MD Eris [address] [facility] | | | | | [facility] | [facility] | | | | | Blessing Kwan | [place], [place] | | | | | (MNP/OLD [facility]) | [address] | | | | | [place], [place] | [phone] | | | | | [address] | | | | | | [phone] | | | +--------+ + + + [...] the endoscopy department toll free ext. [phone] or After business hours or on weekends and holiday Hospital Steam Engineer toll free [phone] ext. [phone] and have the GI doctor electronic gaming device supervisor paged. The provider who performed your procedure [...] | | 0 | | | | gly,[id number] | mouth once daily. | | | [...] from the original. PRE PROCEDURE NOTE: MR# [id number] Subjective: Mynor Valdez is a 48 y.o. [...] 2, [facility] Md Marquita FUNEZ | | | 2019 | Visit | Medicine | [address] | | | | | | [place] [address] | | +--------+ + + + + [...] Rd | | | | | | [place], [place] | | | | | | [address] | | | | | | [phone] | | | | | | | [...] + | MRN: | [facility] | | [id number] Date: 05/04/2018Patient Name: Mynor Booth #: | EN DOSCOPY | | [id number] of : 1970CSN: [id number] Type: | | | AmbulatoryRoom: GI 2Procedure: Upper GI | | | endoscopyIndications: Dysphagia; s/p RYGB in 01/23 with | | | anastomotic stricture s/p EGD dil on | | | 04/21/18 with improvement x 1 weekProviders: BOB Ferreira | | | MD CHANG (Doctor), MAYELA MOSLEY RN | | | (Nurse), AVERY FOX, Eclectic Doctor (Eclectic Doctor)Referring MD: | | | CHANEL LERNER, MDRequesting [...] The | | | Olympus [id number] Gastroscope #[id number] was | | | introduced through the [...] | | 0Note Initiated On: 05/04/2018 9:11 [facility] Letter to: HEMALATHA Ferreira | [...] + + | Performing | Address | City/State/[facility] | Phone Number | | [...] Tyler KANECHARLES | [address] | [place], [place] | | | [facility] | [address] | [address] | | | TESTS | | | [...]
--- OUTSIDE RECORDS SUMMARY | ~2019-10-18 | XMS | Encounter Summary ---
Demographics + + + | Address | [address] | | | [place] [address] | + + + | Home Phone [...] [place] | | | | | [address] | | + + + + + Care Team Providers + +------+ + | Care Electricity Trading Analyst Name | Role | Phone | [...] 2018 | Encounter | Center at [facility] [address] | ACNP [address] | | | | | [address] | [place], [place] | | | | | Mailcode: Center | [address] | | | | | for Health and | [phone] | | | | | [facility] 2 | | | | | | [place], [place] | | | | | | [address] | | | | | | [phone] | | | +--------+ + + + [...] 12/15/ | Office | Pre-operative | 2, [facility] [address] | | | 2019 | Visit | Medicine | [address] | | | | | | [place] [address] | | +--------+ + + + + [...] Rd | | | | | | [place], [place] | | | | | | [address] | | | | | | [phone] | | | | | | | | +--------+ + + + + documented as of this encounter Visit Diagnoses Not on filedocumented in this encounter"
--- OUTSIDE RECORDS SUMMARY | ~2019-10-18 | XMS | Encounter Summary ---
Demographics + + + | Address | [address] | | | [place] [address] | + + + | Home Phone [...] Coleman | | | | | [place] | | | | | [address] | | + + + + + Care Team Providers + +------+ + | Care Internet Marketing Director Name | Role | Phone | [...] | | | | | | Camron [facility] | | | | | | Hospital Admitting | | | | | | Desk Located on the | | | | | | 9th floor | | | | | | [place], [place] | | | | | | [address] | | | +--------+ + + + [...] Rd | | | | | | [place] [address] | | +--------+ + + + + [...] [place] | | | | | | [address] | | | | | | [phone] | | | | | | | | +--------+ + + + + documented as of this encounter Visit Diagnoses Not on filedocumented in this encounter"
--- OUTSIDE RECORDS SUMMARY | ~2019-10-18 | XMS | Encounter Summary ---
Demographics + + + | Address | [address] [facility] | | | [place] [address] | + + + | Home Phone [...] [place] | | | | | [address] | | + + + + + [...] as of this encounter Discharge Summaries Interface, Youth Director In - 03/10/2006 2:08 AM PDT [id number] DELMA PAULSON Admission Date: 02/18/2006 Discharge Date: [...] CT. The patient was subsequently transferred to [facility] and was on the ENT Service from February 13, 2006, to February 16, 2006, where he was treated conservatively with IV steroids and antibiotics. The patient's headache improved, and he was discharged home. The patient returned to the ER on February 18, 2006, for worsening headache. He was initially seen at an ER in [place] and subsequently transferred to [facility] ER. At [facility], an LP was done which showed 125 [...] follow up with his ENT doctor in [place], and the patient will also followup with ENT here at [facility]. 3. Hypertension. The patient was continued on his usual dose of metoprolol 50 mg daily. Condition on Discharge: Improved, stable. Diet: Sodium 2 g. Discharge Medication(s): 1. Augmentin 850 mg p.o. b.i.d. 2. Medrol pack. 3. Oxycodone 5 to 10 mg q.6-8 h. p.r.n. pain. 4. Metoprolol XL 50 mg daily. Followup: The patient will follow up at [facility] ENT Clinic with Dr. Santos Kwan and with Neurosurgery Clinic in about 2 weeks. The patient will also followup with Dr. Tavo Dietz, his [facility] ENT doctor. Jewell Dye M.D. Luis Calixto M.D. [facility] / [id number] / [id number] / [id number] / cc: Tavo Dietz M.D. FAX: [phone] Santos Kwan MD, MPH, FACS [facility] ENT Service Electronically signed by Luis Calixto 03-09-2006 10:41:02 AM documented i n this encounter Plan of Treatment +--------+ + + + + | Date | Type | Specialty | Care Team | Description | +--------+ + + + + | 12/15/ | Office | Pre-operative | 2 [facility] [address] | | | 2019 | Visit | Medicine | [address] | | | | | | [place] [address] | | +--------+ + + + + | 01/04/ | Procedure | Surgery | | | | 2019 | Pass | | | | +--------+ + + + + | 01/25/ | Office | Otolaryngology | Santos Valdivia, | | | 2019 | Visit | | [address] | | | | | | [address] | | | | | | [place], [place] | | | | | | [address] | | | | | | [phone] | | | | | | | | +--------+ + + + + documented as of this encounter Visit Diagnoses Not on filedocumented in this encounter"
--- OUTSIDE RECORDS SUMMARY | ~2019-10-18 | XMS | Encounter Summary ---
Demographics + + + | Address | [address] | | | [place] [address] | + + + | Home Phone [...] [place] | | | | | [address] | | + + + + + Care Team Providers + +------+ + | Care Earth Science Laboratory Technician Name | Role | Phone | [...] | | | Ave Mailcode: [address] | [place], [place] | | | | | [facility] | [address] | | | | | and Healing, | [phone] | | | | | Building | | | | | | Floor [place], [place] | | | | | | [address] | | | | | | [phone] | | | +--------+ + + + [...] [facility] [place] [address] | | | 2020 | Visit | Medicine | [address] | | | | | | [place] [address] | | +--------+ + + + + | 01/04/ | Procedure | Surgery | | | | 2019 | Pass | | | | +--------+ + + + + | 01/25/ | Office | Otolaryngology | Santos Valdivia, | | | 2019 | Visit | | [address] [facility] | | | | | | [address] | | | | | | [place] | | | | | | [address] | | | | | | [phone] | | | | | | | | +--------+ + + + + documented as of this encounter Visit Diagnoses Not on filedocumented in this encounter"
--- OUTSIDE RECORDS SUMMARY | ~2019-10-18 | XMS | Encounter Summary ---
Demographics + + + | Address | [address] [facility] | | | [place] [address] | + + + | Home Phone [...] [place] | | | | | [address] | | + + + + + Care Team Providers + +------+ + | Care Assessor Name | Role | Phone | + [...] | | | | | obesity, | [place], [place] | [facility] | | | | | unspecified | [address] | for Health | | | | | obesity type | Phone: | and Healing, | | | | | ([facility]) | [phone] | Building 1, | | | | | Procedures | Fax: | [address]St Floor | | | | | PHYSICAL | [phone] | [place], [place] | | | | | THERAPY | | [address] | | | | | REFERRAL | | Phone: | | | | | | | [phone] | | | | | | | Fax: | | | | | | | [phone] | +--------+--------+ + + + + Encounter Details +--------+ + + + + | Date | Type | Department | Care Team | Description | +--------+ + + + + | 06/15/ | Mechanical Manufacturing Engineer | Digestive Health | Mary Gonsalez, | Pre-op evaluation | | 2017 | | [facility] [address] | ACNP [address] | (Primary Dx); Morbid | | | | [address] | [facility] [place] | obesity, | | | | Mailcode: Center | [address] | unspecified obesity | | | | for Health and | [phone] | type (HCC) | | | | [facility] 2 | | | | | | [place], [place] | | | | | | [address] | | | | | | | [...] | Office | Pre-operative | 2, [facility] [address] | | 2019 | Visit | Medicine | [address] | | | | | | [place] [address] | | +--------+ + + + + | 01/04/ | Procedure | Surgery | | | | 2020 | Pass | | | | +--------+ + + + + | 01/25/ | Office | Otolaryngology | Santos Valdivia | | | 2019 | Visit | | [address] | | | | | | [address] | | | | | | [place], [place] | | | | | | [address] | | | | | | [phone] | | | | | | | | +--------+ + + + + documented as of this encounter Visit Diagnoses + + | Diagnosis | + + | Pre-op evaluation - Primary Preoperative examination, unspecified | + + | Morbid obesity, unspecified obesity type (HCC) | + + documented in this encounter"
--- OUTSIDE RECORDS SUMMARY | ~2019-10-18 | XMS | Encounter Summary ---
Demographics + + + | Address | [address] | | | [place] [address] | + + + | Home Phone [...] [place] | | | | | [address] | | + + + + + Care Team Providers + +------+ + | Care Casting Repairer Name | Role | Phone | [...] | (04/1418) | | | | [address] | [place], [place] | | | | | [address] | [address] | | | | | Mailcode: U[facility]83 | [phone] | | | | | [facility] | | | | | | [address] [place], [place] | | | | | | [address] | | | | | | [phone] | | | +--------+ + + + [...] [facility] [address] | | | 2019 | Visit | Medicine | [address] | | | | | | [place] [address] | | +--------+ + + + + [...] Rd | | | | | | [place], [place] | | | | | | [address] | | | | | | [phone] | | | | | | | | +--------+ + + + + documented as of this encounter Visit Diagnoses Not on filedocumented in this encounter"
--- OUTSIDE RECORDS SUMMARY | ~2019-10-18 | XMS | Encounter Summary ---
Demographics + + + | Address | [address] [facility] | | | [place] [address] | + + + | Home Phone [...] [place] | | | | | [address] | | + + + + + Care Team Providers + +------+ + | Care Chairman President And Chief Executive Officer Name | Role | Phone | [...] | [facility] [address] | MD [address] | | | | | [address] | [place], [place] | | | | | Mailcode: Center | [address] | | | | | for Health and | | | | | | [facility] 2 | | | | | | [place], [place] | | | | | | [address] | | | | | | | [...] | Office | Pre-operative | 2, [facility] [address] | | | 2020 | Visit | Medicine | [address] | | | | | | [place] [address] | | +--------+ + + + + [...] Rd | | | | | | [place] | | | | | | [address] | | | | | | [phone] | | | | | | | | +--------+ + + + + documented as of this encounter Visit Diagnoses Not on filedocumented in this encounter"
--- OUTSIDE RECORDS SUMMARY | ~2019-10-18 | XMS | Encounter Summary ---
Demographics + + + | Address | [address] | | | [place] [address] | + + + | Home Phone [...] [place] | | | | | [address] | | + + + + + Care Team Providers + +------+ + | Care Mine Development Engineer Name | Role | Phone | [...] | | 2018 | | Center at [facility] [address] | MD [address] | | | | | [address] | [place], [place] | | | | | Mailcode: [place] | [address] | | | | | for Health and | | | | | | [facility] 2 | | | | | | [facility] [place] | | | | | | [address] | | | | | | | [...] 12/15/ | Office | Pre-operative | 2, [facility] Md Marquita FUNEZ | | | 2019 | Visit | Medicine | [address] | | | | | | [place] [address] | | +--------+ + + + + [...] Rd | | | | | | [place], [place] | | | | | | [address] | | | | | | [phone] | | | | | | | | +--------+ + + + + documented as of this encounter Visit Diagnoses Not on filedocumented in this encounter"
--- OUTSIDE RECORDS SUMMARY | ~2019-10-18 | XMS | Encounter Summary ---
Demographics + + + | Address | [address] | | | [place] [address] | + + + | Home Phone [...] [place] | | | | | [address] | | + + + + + Care Team Providers + +------+ + | Care Inbound Call Center Representative Name | Role | [...] | 2018 | Encounter | Center at [facility] [address] | | support group | | | | [address] | | | | | | Mailcode: Center | | | | | | for Health and | | | | | | Healing, Building 2 | | | | | | [place], [place] | | | | | | [address] | | | | | | [phone] | | | +--------+ + + + [...] Office | Pre-operative | 2, Andrés Chambers [address] | | | 2020 | Visit | Medicine | [address] | | | | | | [place] [address] | | +--------+ + + + + [...] Rd | | | | | | [place] | | | | | | [address] | | | | | | [phone] | | | | | | | | +--------+ + + + + documented as of this encounter Visit Diagnoses Not on filedocumented in this encounter"
--- OUTSIDE RECORDS SUMMARY | ~2019-10-18 | XMS | Encounter Summary ---
Demographics + + + | Address | [address] [facility] [facility] [address] | | | [place] [address] | + + + | Home Phone [...] [place] | | | | | [address] | | + + + + + Care Team Providers + +------+ + | Care Pigment Weigher Name | Role | Phone | + [...] | | | a of right | [address] | [address] | | | | | ear | Phone: | Phone: | | | | | Procedures | [phone] | [phone] | | | | | REQUEST TO | Fax: | Fax: | | | | | SURGERY | [phone] | [phone] | | | | | SR COMMUNITY MANAGER | | | | | | | AL | | | | | | | TYMPANOPLAS/ | | | | | | | MASTOID,INTC | | | | | | | T [place] | | | | | | | AL | | | | | | | TYMPANOPLAS/ | | | | | | | MASTOIDEC,IN | | | | | | | TACT WALL | | | | | | | AL | | | | | | | TYMPANOPLAST | | | | | | | Y,REBLD | | | | | | | OSSIC | | | | | | | CHAIN+PROS | | | | | | | AL | | | | | | | TYMPANOPLAST | | | | | | | Y AL | | | | | | | TYMPANOPLAS/ | | | | | | | ANTROT,REBLD | | | | | | | OSSIC+PROST | | | | | | | AL | | | | | | | TYMPANOPLAS/ | | | | | | | ANTROT,REBLD | | | | | | | OSSIC CHAIN | | | | | | | AL | | | | | | | TYMPANOPLAS/ | | | | | | | ANTROTOMY | | | | | | | AL | | | | | | | TYMPANOPLAST | | | | | | | Y,REBUILD | | | | | | | OSSICUL | | | | | | | CHAIN AL | | | | | | | CREATE | | | | | | | EARDRUM | | | | | | | OPENING,GEN | | | | | | | ANESTH AL | | | | | | | [...] multiple ear | [address] | [address] [facility] | | | | | surgeries, | Basilia Barrios | [address] | | | | | incomplete | Kris, | Rd | | | | | mastoidectom | [place] [address] | [place], [place] | | | | | y | Phone: | [address] | | | | | Procedures | [phone] | Phone: | | | | | completion | Fax: | [phone] | | | | | of | [phone] | Fax: | | | | | mastoidectom | | [phone] | | | | | y, revision [...] | | | | [address] | [place], [place] | 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 Your questions can best be answered during business hours at [phone], but for urgent questions after hours, call the [facility] refinery operator helper crude unit at to contact our on-call team. As always, a few reminders about the health of your ears: --Noise exposure should be a concern for everyone. Any time you've been exposed to sound a nd you hear a ringing in your ears afterward, you have damaged your ears-- potentially perma nently. More than eight hours of exposure to a director of intercollegiate athletics, or half an hour to a rock [...] Surgery Department of Otolaryngology/Head and Neck Surgery [facility] Patient: Mynor Valdez Referring Provider: Errol Perkins [...] Morbid obesity with BMI of 40.0-44.9, adult ([facility]) Insulin dependent diabetes mellitus (HCC) Essential hypertension Hyperlipidemia JOSE on CPAP S/P gastric bypass Impaired intestinal absorption PAST SURGICAL HISTORY: Past Surgical History Procedure Laterality Date Ankle fracture surgery 2001 Hand surgery Left 2006 Sinus surgery 2005 Sinus surgery 2012 Lap gastric byp, and sanford-en-y gastroenterostomy w/ sanford limb 150 cm or less 8 [facility] ALLERGIES: Allergies Allergen Reactions Actos [...] s via mouth., Disp: , Rfl: iron gly,vao-C-[id number]-yt-wgckvryg 150 mg iron-200 mg-250 mcg oral tablet, Take 5,000 mcg by mo [facility] once daily., Disp: , Rfl: LEVOMEFOLATE CALCIUM [...] visible. IMAGING: CT scan from 06/22/19 at [facility] reviewed and interpreted by me indicates right [...] Program Department of Otolaryngology-Head and Neck Surgery [address], [address] [address] tel: [phone] fax: [phone] [email or web address] documented in this encounter Plan of Treatment +--------+ + + + + | Date | Type | Specialty | Care Team | Description | +--------+ + + + + | 12/15/ | Office | Pre-operative | 2, [facility] [address] | | | 2019 | Visit | Medicine | [address] | | | | | | [place] [address] | | +--------+ + + + + | 01/04/ | Procedure | Surgery | | | | 2019 | Pass | | | | +--------+ + + + + | 01/25/ | Office | Otolaryngology | Santos Valdivia, | | | 2019 | Visit | | [address] | | | | | | [address] | | | | | | [place], [place] | | | | | | [address] | | | | | | [phone] | | | | | | | | +--------+ + + + + documented as of this encounter Procedures + +--------+ + + + | Procedure Name | Priori | Date/Time | Associated Diagnosis | Comments | | | ty | | | | + +--------+ + + + | AL EAR MICROSCOPY | Routin | 08/20/2019 | [...]
--- OUTSIDE RECORDS SUMMARY | ~2019-10-18 | XMS | Encounter Summary ---
Demographics + + + | Address | [address] | | | [place] [address] | + + + | Home Phone | | + + + | Preferred Language | Unknown | + + + | Marital Status | | + + + | Mosque Affiliation | NRP | + + + [...] [place] | | | | | [address] | | + + + + + Care Team Providers + +------+ + | Care Tongue Carrier Name | Role | Phone | + +------+ + | Hemalatha Lawrence PA-C | PCP | | + +------+ + Encounter Details +--------+ + + + + | Date | Type | Department | Care Team | Description | +--------+ + + + + | 03/23/ | Inside | BERNABE MATHEW at [facility] | Arvin Altamirano, | | | 2018 | Referral | [facility] [address] | MD [address] | | | | Order | [address] Mailcode: | [place], [place] | | | | | [address] [place] [address] | [address] | | | | | Health and Healing, | [phone] | | | | | Building 2 | | | | | | [place], [place] | | | | | | [address] | | | | | | [phone] | | | +--------+ + + + [...] 12/15/ | Office | Pre-operative | 2, [facility] [address] | | | 2020 | Visit | Medicine | [address] | | | | | | [place] [address] | | +--------+ + + + + | 01/04/ | Procedure | Surgery | | | | 2019 | Pass | | | | +--------+ + + + + | 01/25/ | Office | Otolaryngology | Santos Valdivia, | | | 2019 | Visit | | [address] [facility] | | | | | | [address] | | | | | | [place], [place] | | | | | | [address] | | | | | | [phone] | | | | | | | [...]
--- OUTSIDE RECORDS SUMMARY | ~2019-10-18 | XMS | Encounter Summary ---
Demographics + + + | Address | [address] | | | [place] [address] | + + + | Home Phone [...] [place] | | | | | [address] | | + + + + + Care Team Providers + +------+ + | Care Project Intern Name | Role | Phone | [...] | Camron Mailcode: [id number] | Shana [place], | | | | | [place], [place] | [place] [address] | | | | | [address] | [phone] | | | | | [phone] | | | +--------+ + + + [...] Rd | | | | | | [place] [address] | | +--------+ + + + + [...] Rd | | | | | | [place], [place] | | | | | | [address] | | | | | | [phone] | | | | | | | [...] | + + + + + | [facility] | [address] | [place] [address] | | | PATHOLOGY | [address] | | | + + + + + | [facility] | [address] [place] [address] | [place] [address] | | | PATHOLOGY | [address] [...] | + + + + + | [facility] | [address] [place] [address] | [place] [address] | | | PATHOLOGY | [address] | | | + + + + + | [facility] DEPARTMENT OF | [address] [place] [address] | [place] [address] | | | PATHOLOGY | [address] [...] | [place] DEPARTMENT OF | [address] | [place] [address] | | | PATHOLOGY | [address] | | | + + + + + | [facility] DEPARTMENT OF | [address] | [place] [address] | | | PATHOLOGY | [address] [...] DEPARTMENT OF | [address] | [place] [address] | | | PATHOLOGY | [address] | | | + + + + + | [facility] | [address] | [place] [address] | | | PATHOLOGY | [address] [...] by | | | | | | [facility] | | | | | | [facility] [employer]. | | | | + + + [...] + + + | [facility] | [address] | [place] [address] | | | LABORATORY | | | [...] | + + + + + | [facility] DEPARTMENT OF | [address] | [place] [address] | | | PATHOLOGY | [address] | | | + + + + + | [facility] DEPARTMENT OF | [address] | [place] [address] | | | PATHOLOGY | [address] [...] DEPARTMENT OF | [address] | [place] [address] | | | PATHOLOGY | [address] | | | + + + + + | [facility] DEPARTMENT | [address] | [place] [address] | | | PATHOLOGY | [address] [...] | + + + + + | [facility] | [address] [place] [address] | [place] [address] | | | PATHOLOGY | [address] | | | + + + + + | [facility] | [address] [place] [address] | [place] [address] | | | PATHOLOGY | [address] [...] | | | | | JUDO | [facility] brain 02/19/06 | | | | | [...] | | + +---------+ + + | [facility] DEPARTMENT OF | | | | | [...] | | | | | CSF | [facility] | | | | | | Hospital Laboratory. | | | | + + + + + + + + | Specimen | + + | | + + + + + + + | Performing | Address | City/State/Zipcode | Phone Number | | Organization | | | | + + + + + | [facility] | [address] | [place] [address] | | | LABORATORY - PTLD | [...] at | | | | | | [facility]. Culture: | | | | | | [...] | | | | | performed at [facility] | | | | | | [facility] | | | | | | Laboratory. | | | | + + + + + + + + | Specimen | + + | | + + + + + + + | Performing | Address | City/State/Zipcode | Phone Number | | Organization | | | | + + + + + | [facility] | [address] | [place] [address] | | | LAB-MICRO | | | [...] | + + + + + | [facility] | [address] | [place] [address] | | | LAB-MICRO | | | [...] | + + + + + | [facility] | [address] | [place] [address] | | | LAB-MICRO | | | [...] | | | | | performed at [facility] | | | | | | [facility] | | | | | | Laboratory | | | | + + + + + + + + | Specimen | + + | | + + + + + + + | Performing | Address | City/State/Zipcode | Phone Number | | Organization | | | | + + + + + | [facility] | [address] | [place] [address] | | | LAB-MICRO | | | [...] [facility] | [address] | [place], [place] | | | UN[facility] P[facility] INT[facility] | | [address] | | + + + + + [...] DEPARTMENT OF | [address] | [place] [address] | | | PATHOLOGY | [address] | | | + + + + + | [facility] DEPARTMENT OF | [address] | [place] [address] | | | PATHOLOGY | [address] [...] + + + | CSF RBC | [address] | /cu mm | [facility] | | [...] | + + + + + | [facility] DEPARTMENT OF | [address] | [place] [address] | | | PATHOLOGY | [address] | | | + + + + + | [facility] DEPARTMENT OF | [address] | [place] [address] | | | PATHOLOGY | [address] [...] | + + + + + | [facility] | [address] [place] [address] | [place] [address] | | | PATHOLOGY | [address] | | | + + + + + | [facility] | [address] [place] [address] | [place] [address] | | | PATHOLOGY | [address] [...] | + + + + + | [facility] | [address] | [place] [address] | | | PATHOLOGY | [address] | | | + + + + + | [facility] | [address] | [place] [address] | | | PATHOLOGY | [address] [...] | + + + + + | [facility] | [address] | [place] [address] | | | PATHOLOGY | [address] | | | + + + + + | [facility] | [address] | [place] [address] | | | PATHOLOGY | [address] [...] + + | * Corrected 02/19/06 13:09: PSAQUALE FARR, prev report: Not | [facility] | | reported | DEPARTMENT OF | | | PATHOLOGY | + + + + + + + + | Performing | Address | City/State/Zipcode | Phone Number | | Organization | | | | + + + + + | [facility] DEPARTMENT OF | [address] | [place] [address] | | | PATHOLOGY | [address] | | | + + + + + | [facility] DEPARTMENT OF | [address] | [place] [address] | | | PATHOLOGY | [address] [...] | + + + + + | [facility] DEPARTMENT OF | [address] | [place] [address] | | | PATHOLOGY | [address] | | | + + + + + | [facility] DEPARTMENT OF | [facility] [address] | [place] [address] | | | PATHOLOGY | [address] [...] | + + + + + | [facility] DEPARTMENT OF | [facility] | [place] [address] | | | PATHOLOGY | [address] | | | + + + + + | [facility] DEPARTMENT OF | [address] | [place] [address] | | | PATHOLOGY | [address] [...] DEPARTMENT OF | [address] | [place] [address] | | | PATHOLOGY | [address] | | | + + + + + | [facility] | [address] | [place] [address] | | | PATHOLOGY | [address] [...] | | | | cs determined by [facility] | | | | | | [employer]It has | | | | | | [...] withRoche | | | | | | [employer] | | | | | | Test performed by [facility] | | | | | | [employer]. | | | | + + + [...] [facility] | [address] | [place], [place] | | | UN[facility] P[facility] INT[facility] | | [address] | | + + + + + [...] | DEPARTMENT | | | | Processing:Ext [id number] | | OF | | | | | | PATHOLOGY | | + + + + + + + + | Specimen | + + | | + + + + + + + | Performing | Address | City/State/Zipcode | Phone Number | | Organization | | | | + + + + + | [facility] | [address] | [place] [address] | | | PATHOLOGY | [address] | | | + + + + + | [facility] | [address] | [place] [address] | | | PATHOLOGY | [address] [...] at | | | | | | [facility]. Culture: | | | | | | [...] | | | | | performed at [facility] | | | | | | [facility] | | | | | | Laboratory. | | | | + + + + + + + + | Specimen | + + | | + + + + + + + | Performing | Address | City/State/Zipcode | Phone Number | | Organization | | | | + + + + + | [facility] | [address] | [place] [address] | | | LAB-MICRO | | | [...] | + + + + + | [facility] DEPARTMENT | [address] | [place] [address] | | | PATHOLOGY | [address] | | | + + + + + | [facility] DEPARTMENT | [address] | [place] [address] | | | PATHOLOGY | [address] [...] | + + + + + | [facility] DEPARTMENT OF | [address] | [place] [address] | | | PATHOLOGY | [address] | | | + + + + + | [facility] DEPARTMENT OF | [address] | [place] [address] | | | PATHOLOGY | [address] [...] | + + + + + | [facility] DEPARTMENT OF | [address] | [place] [address] | | | PATHOLOGY | [address] | | | + + + + + | [facility] DEPARTMENT | [address] | [place] [address] | | | PATHOLOGY | [address] | | | + + + + + PROTEIN, CSF (02/18/2006 9:13 PM PDT) + +---------+ + + + | Component | Value | Ref Range | Performed | Pathologist | | | | | At | Signature | + +---------+ + + + | TOTAL | 175 (H) | 15 - 45 mg/dL | [facility] | | | PROTEIN CSF | | [...] | + + + + + | [facility] DEPARTMENT OF | [address] | [place] [address] | | | PATHOLOGY | [address] | | | + + + + + | [facility] DEPARTMENT OF | [address] | [place] [address] | | | PATHOLOGY | [address] [...] | + + + + + | [facility] DEPARTMENT OF | [address] | [place] [address] | | | PATHOLOGY | [address] | | | + + + + + | [facility] DEPARTMENT OF | [address] | [place] [address] | | | PATHOLOGY | [address] [...] | + + + + + | [facility] | [address] | [place] [address] | | | PATHOLOGY | [address] | | | + + + + + | [facility] | [address] | [place] [address] | | | PATHOLOGY | [address] [...] | + + + + + | [facility] DEPARTMENT OF | [address] | [place] [address] | | | PATHOLOGY | [address] | | | + + + + + | [facility] | [address] | [place] [address] | | | PATHOLOGY | [address] [...] DEPARTMENT OF | [address] | [place] [address] | | | PATHOLOGY | [address] | | | + + + + + | [facility] DEPARTMENT OF | [address] | [place] [address] | | | PATHOLOGY | [address] [...] | + + + + + | [facility] | [address] | [place] [address] | | | PATHOLOGY | [address] | | | + + + + + | [facility] | [facility] | [place] [address] | | | PATHOLOGY | [address] | | | + + + [...] DEPARTMENT OF | [address] | [place] [address] | | | PATHOLOGY | [address] | | | + + + + + | [facility] DEPARTMENT OF | [address] | [place] [address] | | | PATHOLOGY | [address] | | | + + + + + documented in this encounter Visit Diagnoses Not on filedocumented in this encounter"
--- OUTSIDE RECORDS SUMMARY | ~2019-10-18 | XMS | Encounter Summary ---
Demographics + + + | Address | [address] | | | [place] [address] | + + + | Home Phone | | + + + | Preferred Language | Unknown | + + + | Marital Status | | + + + | Adventist Affiliation | NRP | + + + | Race | White | + + + | Ethnic Group | Not or | + + + Author + + + | Author | [facility] | + + + | Organization | [facility] | + + + | Address | Unknown | + + + | Phone | Unavailable | + + + Support + + + + + | Name | Relationship | Address | Phone | + + + + + | Pooja Valdez | ECON | [address] | | | | | [place] | | | | | [address] | | + + + + + Care Team Providers + +------+ + | Care Quality Assurance Coordinator Name | Role | Phone | [...] 2018 | Encounter | Center at [facility] [address] | AGACNP [address] | dizziness | | | | [address] | Ave [place], [place] | | | | | Mailcode: Center | [address] | | | | | for [facility] and | | | | | | [facility] 2 | | | | | | [place], [place] | | | | | | [address] | | | | | | | [...] | Office | Pre-operative | 2, [facility] [address] | | | 2020 | Visit | Medicine | [address] | | | | | | [place] [address] | | +--------+ + + + + [...] Rd | | | | | | [place] | | | | | | [address] | | | | | | [phone] | | | | | | | | +--------+ + + + + documented as of this encounter Visit Diagnoses Not on filedocumented in this encounter"
--- OUTSIDE RECORDS SUMMARY | ~2019-10-18 | XMS | Encounter Summary ---
Demographics + + + | Address | [address] [facility] [address] [facility] | | | [place] [address] | + + + | Home Phone [...] [place] | | | | | [address] | | + + + + + Care Team Providers + +------+ + | Care Survey Researcher Name | Role | Phone | + [...] Referral | Procedural Unit at | MD [address] | | | | Order | [address] | [place], [place] | | | | | [address] | [address] | | | | | Mailcode: UHN83 | [phone] | | | | | [address] | | | | | | [address] [place], [place] | | | | | | [address] | | | | | | [phone] | | | +--------+ + + + [...] Rd | | | | | | [place] [address] | | +--------+ + + + + | 01/04/ | Procedure | Surgery | | | | 2019 | Pass | | | | +--------+ + + + + | 01/25/ | Office | Otolaryngology | Santos Valdivia, | | | 2019 | Visit | | [address] [facility] | | | | | | [address] | | | | | | [place], [place] | | | | | | [address] | | | | | | [phone] | | | | | | | | +--------+ + + + + documented as of this encounter Results ANKITA (04/21/2018 8:14 AM PDT) + + | Specimen | + + | | + + + +------- -------+ | Narrative | Perfor med At | + +------- -------+ | MRN: | [facility] | | [id number] Date: 04/21/2018Patient Name: Mynor Booth #: | ENDOSC OPY | | [id number] of : 1970CSN: [id number] Type: | | | AmbulatoryRoom: GI 2Procedure: Upper GI | | | endoscopyIndications: 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 | | | The Olympus [id number] Gastroscope | | | #[id number] was introduced through the | | | [...] Initiated On: 04/21/2018 | | | 8:14 [facility] Letter to: HEMALATHA LAWRENCE PA-C | [...]
--- OUTSIDE RECORDS SUMMARY | ~2019-10-18 | XMS | Encounter Summary ---
Demographics + + + | Address | [address] | | | [place] [address] | + + + | Home Phone | | + + + | Preferred Language | Unknown | + + + | Marital Status | | + + + | Anglican Affiliation | NRP | + + + [...] [place] | | | | | [address] | | + + + + + Care Team Providers + +------+ + | Care Instrument Technician Apprentice Name | Role | Phone | [...] | | | | | obesity, | [place], [place] | [facility] | | | | | unspecified | [address] | for Health | | | | | obesity type | Phone: | and Healing, | | | | | (HCC) | [phone] | Building 1, | | | | | Procedures | Fax: | [address] Floor | | | | | PHYSICAL | [phone] | [place], [place] | | | | | THERAPY | | [address] | | | | | REFERRAL | | Phone: | | | | | | | [phone] | | | | | | | Fax: | | | | | | | [phone] | +--------+--------+ + + + + Encounter Details +--------+---------+ + + + | Date | Type | Department | Care Team | Description | +--------+---------+ + + + | 06/23/ | Office | [facility] Physical | Maryuri Stuart, PT | Morbid obesity, | | 2017 | Visit | Therapy Services at | [address] | unspecified obesity | | | | [facility] | [address] [place], | type ([facility]) (Primary | | | | [address] | [place] [address] | Dx) | | | | Mailcode: [facility] | [phone] | | | | | [facility] | | | | | | and Healing, | | | | | | Building | | | | | | [place], [place] | | | | | | [address] | | | | | | [phone] | | | +--------+---------+ + + + [...] - 06/23/2017 3:30 PM PDT Insurance: Payor: [employer] / Plan: [employer] / Product Type: PPO / Non-Medicare [facility] Past Medical History: Diagnosis [...] Pain: pain is a significant clinical problem [facility] History of Presenting Problem: [...] are -. 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 lives ke e. Living situation/environment is limiting [...] and implement changes accordingly Complexity: Moderate - 64[address] The patient requires services that can be [...] 12/15/ | Office | Pre-operative | 2 [facility] Md Marquita FUNEZ | | | 2019 | Visit | Medicine | [address] | | | | | | [place] [address] | | +--------+ + + + + [...] Rd | | | | | | [place], [place] | | | | | | [address] | | | | | | [phone] | | | | | | | [...]
--- OUTSIDE RECORDS SUMMARY | ~2019-10-18 | XMS | Encounter Summary ---
Demographics + + + | Address | [address] | | | [place] [address] | + + + | Home Phone [...] [place] | | | | | [address] | | + + + + + Care Team Providers + +------+ + | Care Rn Community Health Name | Role | Phone | + [...] | Anastomotic | Bob Schulte, | [facility] [address] | | | | | stricture | MD [address] | | | | | of | [address] | Mailcode: | | | | | gastrojejuno | [address] | [facility] | | | | | stomy | [place], [place] | for Health | | | | | Procedures | [address] | and Healing, | | | | | CONSULT TO | Phone: | Building 2 | | | | | GI PROCEDURE | [phone] | [place], [place] | | | | | UNIT: EGD | Fax: | [address] | | | | | [place] UPPER GI | [phone] | Phone: | | | | | ENDOSCOPY,BI | | [phone] | | | | | OPSY GA UP | | Fax: | | | | | GI | | [phone] | | | | | ENDOSCOPY,BA | | | | | | | LL DIL,30MM | | | +--------+--------+ + + + + Encounter Details +--------+ + + + + | Date | Type | Department | Care Team | Description | +--------+ + + + + | 05/04/ | Burn Out Scarfing Operator | Digestive Health | Bob Quinn | Anastomotic | | 2018 | | Center at [facility] [address] | MD Eris [address] | stricture of | | | | [address] | [address] | gastrojejunostomy | | | | Mailcode: [place] | [place], [place] | (Primary Dx) | | | | for Health and | [address] | | | | | [facility], [facility] 2 | [phone] | | | | | [facility] [place] | | | | | | [address] | | | | | | [phone] | | | +--------+ + + + [...] | 12/15/ | Office | Pre-operative | [facility] [address] | | | 2019 | Visit | Medicine | [address] | | | | | | [place] [address] | | +--------+ + + [...] Rd | | | | | | [place], [place] | | | | | | [address] | | | | | | [phone] | | | | | | | | +--------+ + + + + documented as of this encounter Visit Diagnoses + + | Diagnosis | + + | Anastomotic stricture of gastrojejunostomy - Primary | + + documented in this encounter"
--- OUTSIDE RECORDS SUMMARY | ~2019-10-18 | XMS | Encounter Summary ---
Demographics + + + | Address | [address] [address] | | | [place] [address] | + + + | Home Phone [...] [place] | | | | | [address] | | + + + + + Care Team Providers + +------+ + | Care Weight Recorder Name | Role | Phone | + [...] Medicine Clinic at | Susana Oliver NP [address] | (Primary Dx) | | | | MPV 4th Floor Day | [facility] | | | | | Stay [address] [place], [place] | | | | | [address] | [address] | | | | | Mailcode: UHN65 | [phone] | | | | | [address] | | | | | | [address] [place], [place] | | | | | | [address] | | | | | | [phone] | | | +--------+---------+ + + + [...] Susana Weaver NP - 01/10/2018 2:05 PM [facility] PREOPERATIVE INSTRUCTIONS Empty stomach before surgery [...] or walk. Surgery check-in location: Admitting - [facility], ninth floor [facility] Surgery Check in Time: The Preoperative Medicine [...] it is after office hours, call the [facility] burning plant operator at [phone] and ask them to page him or [...] renal failure no electrolyte abnormalities no dialysis Urology/Position Classification Manager: Within Defined Limits except as noted below no Urologic Conditions No PROJECT MANAGEMENT PROFESSOR conditions Endo: Diabetes: type 2 oral hypoglycemics [...] pen 20 Units three times daily. iron gly,bjo-L-[id number]-is-svffucor 150 mg iron-200 mg-250 mcg oral tablet [...] to this patient's care. SUSANA WEAVER NP [facility] PREOPERATIVE MEDICINE CLINIC AT [facility] 4TH FLOOR DAY STAY [address] [facility] [address] I spent time (45 minutes, >50% [...] [facility] [address] | | | 2019 | Visit | Medicine | [address] | | | | | | [place] [address] | | +--------+ + + + + [...] Rd | | | | | | [place], [place] | | | | | | [address] | | | | | | [phone] | | | | | | | | +--------+ + + + + + + +--------+ + + | Name | Type | Priori | Associated Diagnoses | Order Schedule | | | | ty | | | + + +--------+ + + | COMMUNICATION TO [facility] | Procedures | Routin | Preop examination [...] MEDICAL CENTER | [address] | [place] [address] | | | SERVICES, CORE | [address] [...] [facility] | [address] | [place] [address] | | | SERVICES, | [address] [...] | + + + + + | [facility] [email or web address] | [address] | [place] [address] | | | SERVICES, | [address] [...] [facility] | | considered for monitoring exterminator termite glycemic control in patients with: | [...] | [facility] | [address] [facility] [address] | [place] [address] | | | SERVICES, SPECIAL | [address] [...] | | | LABORATORY | | | [place]ICAN | | | SERVICES, | | | [...] + + | Performing | Address | City/State/[facility] | Phone Number | | Organization | | | | + + + + + | [facility] | [address] | [place] [address] | | | FILI, ANNA | [address] | | | + + + + + documented in this encounter Visit Diagnoses + + | Diagnosis | + + | Preop examination - Primary Preoperative examination, unspecified | + + documented in this encounter
--- OUTSIDE RECORDS SUMMARY | ~2019-10-18 | XMS | Encounter Summary ---
Demographics + + + | Address | [address] | | | [place] [address] | + + + | Home Phone [...] [place] | | | | | [address] | | + + + + + Care Team Providers + +------+ + | Care Network Support Specialist Name | Role | Phone | [...] 2017 | Encounter | Center at [facility] [address] | AGACNP [address] | | | | | [address] | [place], [place] | | | | | Mailcode: Center | [address] | | | | | for Health and | [phone] | | | | | Healing, Building [address] | | | | | | [place], [place] | | | | | | [address] | | | | | | | [...] | Office | Pre-operative | 2, [facility] [address] | | | 2020 | Visit | Medicine | [address] | | | | | | [place] [address] | | +--------+ + + + + [...] Rd | | | | | | [place] | | | | | | [address] | | | | | | [phone] | | | | | | | | +--------+ + + + + documented as of this encounter Visit Diagnoses Not on filedocumented in this encounter"
--- OUTSIDE RECORDS SUMMARY | ~2019-10-18 | XMS | Encounter Summary ---
Demographics + + + | Address | [address] [address] [facility] [address] | | | [place] [address] | + + + | Home Phone [...] [place] | | | | | [address] | | + + + + + Care Team Providers + +------+ + | Care Help Desk Operator Name | Role | Phone | [...] Pharmacy | | | | | | [address] | | | | | | Loop [place], [place] | | | | | | [address] | | | | | | [phone] | | | +--------+ + + + [...] 12/15/ | Office | Pre-operative | 2 [facility] [address] | | | 2019 | Visit | Medicine | [address] | | | | | | [place] [address] | | +--------+ + + + + [...] [place] | | | | | | [address] | | | | | | [phone] | | | | | | | | +--------+ + + + + documented as of this encounter Visit Diagnoses Not on filedocumented in this encounter"
--- OUTSIDE RECORDS SUMMARY | ~2019-10-18 | XMS | Encounter Summary ---
Demographics + + + | Address | [address] | | | [place] [address] | + + + | Home Phone [...] [place] | | | | | [address] | | + + + + + Care Team Providers + +------+ + | Care Set Off Press Operator Name | Role | Phone | [...] | Center at [facility] [address] | | | | | [place] [address] | [facility] [address] | | | | | Mailcode: Center | [place], [place] | | | | | for Health and | [address] | | | | | Healing, Building [address] | | | | | | [place], [place] | | | | | | [address] | | | | | | [phone] | | | +--------+ + + + [...] Rd | | | | | | [place] [address] | | +--------+ + + + + [...] | | | | | | [place], [place] | | | | | | [address] | | | | | | [phone] | | | | | | | | +--------+ + + + + documented as of this encounter Visit Diagnoses Not on filedocumented in this encounter"
--- OUTSIDE RECORDS SUMMARY | ~2019-10-18 | XMS | Encounter Summary ---
Demographics + + + | Address | [address] | | | [place] [address] | + + + | Home Phone [...] [place] | | | | | [address] | | + + + + + Care Team Providers + +------+ + | Care Commercial Crabber Name | Role | Phone | + +------+ + | Hemalatha Lawrence PA-C | PCP | | + +------+ + Encounter Details +--------+ + + + + | Date | Type | Department | Care Team | Description | +--------+ + + + + | 12/17/ | Abstract | Digestive Health | Clinic, Surgery | | | 2018 | | [place] [facility] [address] | | | | | | [place] | | | | | | Mailcode: Center | | | | | | for Health and | | | | | | Healing, [address] | | | | | | [place], [place] | | | | | | [address] | | | | | | [phone] | | | +--------+ + + + [...] – [place] [address] | | 2019 | Visit | Medicine | [address] | | | | | | [place] [address] | | +--------+ + + + + [...] Rd | | | | | | [facility] | | | | | | [address] | | | | | | [phone] | | | | | | | | +--------+ + + + + documented as of this encounter Visit Diagnoses Not on filedocumented in this encounter"
--- OUTSIDE RECORDS SUMMARY | ~2019-10-18 | XMS | Encounter Summary ---
Demographics + + + | Address | [address] | | | [place] [address] | + + + | Home Phone [...] [place] | | | | | [address] | | + + + + + Care Team Providers + +------+ + | Care Boiler Tender Name | Role | Phone | + +------+ + | Rian Sanchez MD | PCP | | + +------+ + Encounter Details +--------+ + + + + | Date | Type | Department | Care Team | Description | +--------+ + + + + | 11/15/ | Abstract | Cardiology | Poly Joseph | | | 2017 | | Preventive at [facility] | [address] | | | | | [address] | [address] [place], | | | | | Mailcode: AARON9A | [place] [address] | | | | | [facility] | [phone] | | | | | and Healing, | | | | | | [address] | | | | | | [place], [place] | | | | | | [address] | | | | | | [phone] | | | +--------+ + + + [...] Rd | | | | | | [place] [address] | | +--------+ + + + + [...] [place] | | | | | | [address] | | | | | | [phone] | | | | | | | | +--------+ + + + + documented as of this encounter Visit Diagnoses Not on filedocumented in this encounter"
--- OUTSIDE RECORDS SUMMARY | ~2019-10-18 | XMS | Encounter Summary ---
Demographics + + + | Address | [address] | | | [place] [address] | + + + | Home Phone [...] [place] | | | | | [address] | | + + + + + Care Team Providers + +------+ + | Care Piece Marker Small Arms Name | Role | Phone | + [...] | 2017 | Encounter | Preventive at [facility] | [address] | | | | | [address] | [address]rios [place], | | | | | Mailcode: CH9A | [place] [address] | | | | | [facility] | [phone] | | | | | and [facility], | | | | | | [address] | | | | | | [place], [place] | | | | | | [address] | | | | | | [phone] | | | +--------+ + + + [...] 12/15/ | Office | Pre-operative | [facility] [address] | | | 2019 | Visit | Medicine | [address] | | | | | | [place] [address] | | +--------+ + + + + [...] Rd | | | | | | [place], [place] | | | | | | [address] | | | | | | [phone] | | | | | | | | +--------+ + + + + documented as of this encounter Visit Diagnoses + + | Diagnosis | + + | Essential hypertension - Primary | + + documented in this encounter"
--- OUTSIDE RECORDS SUMMARY | ~2019-10-18 | XMS | Encounter Summary ---
Demographics + + + | Address | [address] | | | [place] [address] | + + + | Home Phone [...] [place] | | | | | [address] | | + + + + + Care Team Providers + +------+ + | Care Instructor Substitute Cosmetology Name | Role | Phone | + [...] as of this encounter Progress Notes Interface, Hide House Supervisor In - 02/24/2006 2:08 AM PDT [id number] DELMA PAULSON Consulting Physician: Santos Kwan MD, MPH, FACS Consultation Date: 02/18/2006 Subjective: Mr. Valdez is a 35-year-old gentleman who underwent endoscopic sinus surgery on February 09, 2006. He was subsequently admitted to our service at [facility] after being found have an intracranial bleed following endoscopic sinus surgery at an outside facility, in [place]. He was admitted to our service on [...] 72 hours ago. He represented to his technical solutions director today with complaints of 10/10 headache which [...] Ph.D. Santos Kwan MD, MPH, FACS Director, [facility] Professor of Otolaryngology/Head and Neck Surgery / [id number] / [id number] / [id number] / Electronically signed by Santos Kwan 02-23-2006 [...] | | | | | [place] [address] | | +--------+ + + + + [...] [place] | | | | | | [address] | | | | | | [phone] | | | | | | | | +--------+ + + + + documented as of this encounter Visit Diagnoses Not on filedocumented in this encounter"
--- NOTE | 2019-10-18 22:54 | EKG ---
[facility] [address] [facility] [place] [address] Signed Normal sinus rhythm Right bundle branch block Left anterior fascicular block Bifascicular block Abnormal ECG No previous ECGs available Confirmed by VANCE DOUGLASS MD ([id number]) on 10/18/2019 10:54:07 PM Electronically Signed By: VANCE DOUGLASS MD 10/18/19 2254 PATIENT NAME: KHURRAM NGUYỄN Electrocardiogram DATE OF : 68 PHYSICIAN: VANCE DOUGLASS MD REPORT #: [id number] REPORT IS CONFIDENTIAL AND NOT TO BE RELEASED WITHOUT AUTHORIZATION
== END 2019-10-18 20:08 | disposition home or self-care (01) ==
LOC: ED 16:23
DX: R07.89 Other chest pain (principal); E78.5 Hyperlipidemia, unspecified; I10 Essential (primary) hypertension; Z87.891 Personal history of nicotine dependence; Z88.1 Allergy status to other antibiotic agents; Z88.8 Allergy status to other drugs, medicaments and biological substances; Z79.899 Other long term (current) drug therapy
CPT/HCPCS: 71045; 80053; 83735; 84484; 85025; 93005; 93010; 99285-25

== ENCOUNTER 2019-12-24 19:40 | Emergency (ER) | payer OTHER ==
[~2019-12-24] VITALS: Ht 188 cm; Wt 113.4 kg
--- OUTSIDE RECORDS SUMMARY | 2019-12-24 19:44 | XMS ---
PreManage Notification: KHURRAM NGUYỄN Security Nitroglycerin Nitrator Operator Batch Events No recent Security Events currently on file CRITERIA MET - PDMP [facility] FAMILY PHONE: [phone] Hemalatha Lawrence PA-C Treatment Current PHONE: Unknown [facility] has no Care Guidelines for this patient. Porfirio VISIT COUNT (12 MO.) 4 DESEAN Khan TOTAL 4 NOTE: Visits indicate total known visits. ED/UCC VISIT TRACKING (12 MO.) 12/24/2019 19:42 [facility] [place] TYPE: Emergency COMPLAINT: - FLANK,SHOULER PAIN 10/18/2019 16:24 [facility] [place] TYPE: Emergency COMPLAINT: - CHEST PRESSURE, DIZZINESS DIAGNOSES: - Other heading maker (current) drug therapy - Allergy status to oth drug/meds/biol subst status - Essential (primary) hypertension - Personal history of nicotine dependence - Allergy status to other antibiotic agents status - Other chest pain - Hyperlipidemia, unspecified 07/26/2019 00:03 [facility] [place] TYPE: Emergency COMPLAINT: - EXTREMITY PAIN DIAGNOSES: - Personal history of nicotine dependence - Allergy status to oth drug/meds/biol subst status - Hyperlipidemia, unspecified - Unspecified sprain of right thumb, initial encounter - Other heading maker (current) drug therapy - Striking against or struck by other objects, init encntr - Allergy status to other antibiotic agents status - Essential (primary) hypertension 01/18/2019 17:28 [facility] [place] TYPE: Emergency COMPLAINT: - WEAKNESS,CHEST PAIN INPATIENT VISIT TRACKING (12 MO.) 01/18/2019 17:29 [facility] [place] TYPE: Observation COMPLAINT: - WEAKNESS DIAGNOSES: - Chest pain, unspecified - 1 Type 2 diabetes mellitus without complications - Other heading maker (current) drug therapy - Essential (primary) hypertension - Allergy status to oth drug/meds/biol subst status - Bariatric surgery status - alf (current) use of oral hypoglycemic drugs - Weakness - Reaction to severe stress, unspecified - Allergy status to other antibiotic agents status - Hypothyroidism, unspecified - Hyperlipidemia, unspecified [email or web address]
[2019-12-25] MEDS ORDERED: PREVACID30 M1 PO (00:06)
== END 2019-12-25 00:18 | disposition home or self-care (01) ==
LOC: ED 19:40
DX: K30 Functional dyspepsia (principal); E78.5 Hyperlipidemia, unspecified; I10 Essential (primary) hypertension; Z87.891 Personal history of nicotine dependence; Z88.1 Allergy status to other antibiotic agents; Z88.8 Allergy status to other drugs, medicaments and biological substances; Z79.899 Other long term (current) drug therapy
CPT/HCPCS: 71101; 74177; 80053; 81001; 85025; 99284-25; C9113; J1885; J2405; Q9967

== ENCOUNTER 2020-10-25 14:40 | Emergency (ER) | payer OTHER ==
[~2020-10-25] VITALS: Ht 188 cm; Wt 117.9 kg
[~2020-10-25 14:40] MED LIST changes: +CYCLOBENZAPRINE10 MG PO; +NORCO 10-325 T1 EACH PO; +PREVACID30 M1 PO; +TOPROL XL50 MG PO
--- OUTSIDE RECORDS SUMMARY | 2020-10-25 14:44 | XMS ---
PreManage Notification: KHURRAM NGUYỄN Security Technician Biological Health Events No recent Security Events currently on file CRITERIA MET - PDMP CARE PROVIDERS [facility], [facility] Current FAMILY PHONE: [phone] [facility] has no Care Guidelines for this patient. Porfirio VISIT COUNT (12 MO.) 2 DESEAN Khan TOTAL 2 NOTE: Visits indicate total known visits. ED/UCC VISIT TRACKING (12 MO.) 10/25/2020 14:41 [facility] [place] TYPE: Emergency COMPLAINT: - RIB PAIN 12/24/2019 19:42 [facility] [place] TYPE: Emergency COMPLAINT: - FLANK,SHOULER PAIN DIAGNOSES: - Other senior living (current) drug therapy - Essential (primary) hypertension - Personal history of nicotine dependence - Allergy status to other antibiotic agents - Functional dyspepsia - Unspecified abdominal pain - Allergy status to other drugs, medicaments and biological substances - Hyperlipidemia, unspecified INPATIENT VISIT TRACKING (12 MO.) No inpatient visits to display in this time frame [email or web address]
[2020-10-25] MEDS ORDERED: METFORMIN HCL500 M1 PO (15:01)
[2020-10-25] MEDS ORDERED: MELOXICAM7.5 MG PO (18:05)
[2020-10-25] MEDS ORDERED: CYCLOBENZAPRINE10 MG PO (18:05)
--- NOTE | 2020-10-25 20:12 | EKG ---
[facility] [address] [place] [address] Signed Normal sinus rhythm Right bundle branch block Left anterior fascicular block Bifascicular block Abnormal ECG When compared with ECG of 13-MAY-2020 14:57, Borderline criteria for Lateral infarct are no longer present T wave inversion no longer evident in Anterior leads Confirmed by VANCE DOUGLASS MD ([id number]) on 10/25/2020 8:12:19 PM Electronically Signed By: VANCE DOUGLASS MD 10/25/202011 PATIENT NAME: KHURRAM NGUYỄN Electrocardiogram DATE OF : 68 PHYSICIAN: VANCE DOUGLASS MD REPORT #: [id number] REPORT IS CONFIDENTIAL AND NOT TO BE RELEASED WITHOUT AUTHORIZATION
== END 2020-10-25 18:20 | disposition home or self-care (01) ==
LOC: ED 14:40
DX: R10.12 Left upper quadrant pain (principal); E78.5 Hyperlipidemia, unspecified; I10 Essential (primary) hypertension; Z88.8 Allergy status to other drugs, medicaments and biological substances; Z88.1 Allergy status to other antibiotic agents; Z79.899 Other long term (current) drug therapy; Z79.84 Long term (current) use of oral hypoglycemic drugs
CPT/HCPCS: 71045; 74177; 80053; 81001; 83605; 83690; 84484; 85025; 93005; 93010; 99284-25; J1885; J2270; J2405; J7030; Q9967

== ENCOUNTER 2020-12-07 19:18 | Emergency (ER) | payer OTHER ==
[~2020-12-07] VITALS: Ht 188 cm; Wt 117.9 kg
[~2020-12-07 19:18] MED LIST changes: +MELOXICAM7.5 MG PO
--- OUTSIDE RECORDS SUMMARY | 2020-12-07 19:20 | XMS ---
PreManage Notification: KHURRAM NGUYỄN Security Tire Service Supervisor Events No recent Security Events currently on file CRITERIA MET - PDMP CARE PROVIDERS [facility] PHONE: [phone] JULISSA PACHECO Physician Insurance Policy Issue Clerk 10/28/2020-Current PHONE: [phone] [facility] has no Care Guidelines for this patient. Porfirio VISIT COUNT (12 MO.) 3 DESEAN Khan TOTAL 3 NOTE: Visits indicate total known visits. ED/UCC VISIT TRACKING (12 MO.) 12/07/2020 19:18 [facility] TYPE: Emergency COMPLAINT: - PAIN WHEN URINATES, PAIN IN BACK 10/25/2020 14:41 [facility] TYPE: Emergency COMPLAINT: - ABD PN DIAGNOSES: - Allergy status to other drugs, medicaments and biological substances - Other intermediate project manager (current) drug therapy - Allergy status to other antibiotic agents - [facility] (current) use of oral hypoglycemic drugs - Hyperlipidemia, unspecified - Left upper quadrant pain - Essential (primary) hypertension - Allergy status to other drugs, medicaments and biological substances - Allergy status to other antibiotic agents 12/24/2019 19:[address] [facility] [place] TYPE: Emergency COMPLAINT: - FLANK,SHOULER PAIN DIAGNOSES: - Other [place] [facility] (current) drug therapy - Essential (primary) hypertension - Personal history of nicotine dependence - Allergy status to other antibiotic agents - Functional dyspepsia - Unspecified abdominal pain - Allergy status to other drugs, medicaments and biological substances - Hyperlipidemia, unspecified INPATIENT VISIT TRACKING (12 MO.) No inpatient visits to display in this time frame [id number]
[2020-12-07] MEDS ORDERED: ONDANSETRON ODT4 MG PO (19:52)
[2020-12-07] MEDS ORDERED: VITAMIN D21250 MCG PO (19:52)
== END 2020-12-07 21:27 | disposition home or self-care (01) ==
LOC: ED 19:18
DX: R10.9 Unspecified abdominal pain (principal); E78.5 Hyperlipidemia, unspecified; I10 Essential (primary) hypertension; Z88.8 Allergy status to other drugs, medicaments and biological substances; Z88.1 Allergy status to other antibiotic agents; Z79.899 Other long term (current) drug therapy
CPT/HCPCS: 74176; 80053; 81001; 83690; 83735; 85025; 96374; 96375; 99284-25; J1885; J2405

== ENCOUNTER 2021-02-17 22:31 | Emergency (ER) | payer OTHER ==
[~2021-02-17] VITALS: Ht 188 cm; Wt 121.6 kg
[~2021-02-17 22:31] MED LIST changes: +ONDANSETRON ODT4 MG PO; +VITAMIN D21250 MCG PO
[2021-02-17] MEDS ORDERED: TAMSULOSIN HCL0.4 MG PO (22:57)
[2021-02-18] MEDS ORDERED: ZOFRAN4 MG PO (04:26)
--- NOTE | 2021-02-18 21:10 | EKG ---
[facility] [address] [facility] [place] [address] Signed Sinus rhythm with occasional premature ventricular complexes Right bundle branch block Left anterior fascicular block Bifascicular block Abnormal ECG When compared with ECG of 25-OCT-2020 15:39, premature ventricular complexes are now present QT has lengthened Confirmed by JOSHUA YEH DO ([id number]) on 02/18/2021 9:10:38 PM Electronically Signed By: JOSHUA YEH DO 02/18/212109 PATIENT NAME: KHURRAM NGUYỄN Electrocardiogram DATE OF : 68 PHYSICIAN: JOSHUA YEH DO REPORT #: [id number] REPORT IS CONFIDENTIAL AND NOT TO BE RELEASED WITHOUT AUTHORIZATION
== END 2021-02-18 04:49 | disposition home or self-care (01) ==
LOC: ED 22:31
DX: R42 Dizziness and giddiness (principal); E78.5 Hyperlipidemia, unspecified; I10 Essential (primary) hypertension; Z88.8 Allergy status to other drugs, medicaments and biological substances; Z88.1 Allergy status to other antibiotic agents; Z79.899 Other long term (current) drug therapy
CPT/HCPCS: 71045; 80053; 81001; 83735; 84484; 85025; 93005; 93010; 96361; 96374; 96376; 99284-25; J2405; J7030

== ENCOUNTER 2021-02-25 15:19 | Emergency (ER) | payer OTHER ==
[~2021-02-25] VITALS: Ht 188 cm; Wt 117.9 kg
[~2021-02-25 15:19] MED LIST changes: +TAMSULOSIN HCL0.4 MG PO; +ZOFRAN4 MG PO
--- OUTSIDE RECORDS SUMMARY | 2021-02-25 15:22 | XMS ---
PreManage Notification: KHURRAM NGUYỄN Security Claim Auditor Events No recent Security Events currently on file CRITERIA MET - [facility] - 2 Visits in 30 Days CARE PROVIDERS MEDICINE, [facility] PHONE: [phone] JULISSA PACHECO Physician Alterations Tailor 10/28/2020-Current PHONE: [phone] [facility] has no Care Guidelines for this patient. Porfirio VISIT COUNT (12 MO.) [address] [place] [address] TOTAL 4 NOTE: Visits indicate total known visits. ED/UCC VISIT TRACKING (12 MO.) 02/25/2021 15:19 [facility] [place] TYPE: Emergency COMPLAINT: - SOB, LIGHT HEADED 02/17/2021 22:32 [facility] [place] TYPE: Emergency COMPLAINT: - DIZZINESS DIAGNOSES: - Other [place] [facility] [place] (current) drug therapy - Dizziness and giddiness - Hyperlipidemia, unspecified - Essential (primary) hypertension - Allergy status to other antibiotic agents - Allergy status to other drugs, medicaments and biological substances 12/07/2020 19:18 [facility] [place] TYPE: Emergency COMPLAINT: - ABD PN DIAGNOSES: - Essential (primary) hypertension - Allergy status to other drugs, medicaments and biological substances - Allergy status to other antibiotic agents - Unspecified abdominal pain - Other [place] [facility] [place] (current) drug therapy - Hyperlipidemia, unspecified 10/25/2020 14:41 [facility] [place] TYPE: Emergency COMPLAINT: - ABD PN DIAGNOSES: - Allergy status to other drugs, medicaments and biological substances - Other moth exterminator (current) drug therapy - Allergy status to other antibiotic agents - senior care (current) use of oral hypoglycemic drugs - Hyperlipidemia, unspecified - Left upper quadrant pain - Essential (primary) hypertension - Allergy status to other drugs, medicaments and biological substances - Allergy status to other antibiotic agents INPATIENT VISIT TRACKING (12 MO.) No inpatient visits to display in this time frame [email or web address]
[2021-02-25] MEDS ORDERED: METRONIDAZOLE500 MG PO (15:35)
[2021-02-25] MEDS ORDERED: JARDIANCE10 MG PO (15:35)
[2021-02-25] MEDS ORDERED: CIPROFLOXACIN500 MG PO (15:35)
--- NOTE | 2021-02-26 07:27 | EKG ---
[facility] [address] [facility] [place] [address] Signed Normal sinus rhythm Right bundle branch block Left anterior fascicular block Bifascicular block Abnormal ECG When compared with ECG of 17-FEB-2021 22:37, premature ventricular complexes are no longer present Confirmed by VANCE DOUGLASS MD ([id number]) on 02/26/2021 7:26:46 AM Electronically Signed By: VANCE DOUGLASS MD 02/26/21 0727 PATIENT NAME: KHURRAM NGUYỄN Electrocardiogram DATE OF : 68 PHYSICIAN: VANCE DOUGLASS MD REPORT #: [id number] REPORT IS CONFIDENTIAL AND NOT TO BE RELEASED WITHOUT AUTHORIZATION
== END 2021-02-25 18:20 | disposition home or self-care (01) ==
LOC: ED 15:19
DX: K92.2 Gastrointestinal hemorrhage, unspecified (principal); E78.5 Hyperlipidemia, unspecified; I10 Essential (primary) hypertension; Z87.891 Personal history of nicotine dependence; Z88.8 Allergy status to other drugs, medicaments and biological substances; Z88.1 Allergy status to other antibiotic agents; Z79.899 Other long term (current) drug therapy
CPT/HCPCS: 80053; 85025; 85610; 85730; 86850; 86900; 86901; 93005; 93010; 96374; 99285-25; C9113; J7030

== ENCOUNTER 2021-11-06 00:29 | Emergency (ER) | payer OTHER ==
[~2021-11-06] VITALS: Ht 188 cm; Wt 117.9 kg
[~2021-11-06 00:29] MED LIST changes: +CIPROFLOXACIN500 MG PO; +JARDIANCE10 MG PO; +METRONIDAZOLE500 MG PO
[2021-11-06] MEDS ORDERED: METFORMIN HCL500 MG PO (00:46)
[2021-11-06] MEDS ORDERED: OZEMPIC0.25 MG/0. (00:47)
[2021-11-06] MEDS ORDERED: DICLOXACILLIN500 MG PO (01:39)
[2021-11-06] MEDS ORDERED: DOXYCYCLINE HY100 MG PO (01:39)
[2021-11-06] MEDS ORDERED: HYDROCODON-ACE1 EA10 PO (01:39)
== END 2021-11-06 02:10 | disposition home or self-care (01) ==
LOC: ED 00:29
DX: E11.621 Type 2 diabetes mellitus with foot ulcer (principal); L97.529 Non-pressure chronic ulcer of other part of left foot with unspecified severity; E78.5 Hyperlipidemia, unspecified; I10 Essential (primary) hypertension; Z87.891 Personal history of nicotine dependence; Z88.1 Allergy status to other antibiotic agents; Z88.8 Allergy status to other drugs, medicaments and biological substances; Z79.899 Other long term (current) drug therapy; Z79.84 Long term (current) use of oral hypoglycemic drugs
CPT/HCPCS: 73660; 99283-25

== ENCOUNTER 2021-12-06 14:55 | Emergency (ER) | payer OTHER ==
[~2021-12-06] VITALS: Ht 188 cm; Wt 117.9 kg
[~2021-12-06 14:55] MED LIST changes: +DICLOXACILLIN500 MG PO; +DOXYCYCLINE HY100 MG PO; +HYDROCODON-ACE1 EA10 PO; +METFORMIN HCL500 MG PO; +OZEMPIC0.25 MG/0.
--- OUTSIDE RECORDS SUMMARY | 2021-12-06 14:58 | XMS ---
PreManage Notification: KHURRAM NGUYỄN Security Adjunct English Instructor Events No recent Security Events currently on file CRITERIA MET - [facility] - [facility] - 2 Visits in 30 Days CARE PROVIDERS MEDICINE, [facility] Current FAMILY PHONE: [phone] JULISSA PACHECO Physician Garment Parts Cutter Machine Current PHONE: [phone] [facility] has no Care Guidelines for this patient. Care History Medical/Surgical 03/05/2021 [facility] CALLED PATIENT-NO ANSWER- PATIENT WAS LAST SEEN BY PCP 02/19/21. - PATIENT DOES NOT HAVE A FOLLOW UP APT -PATIENT NEEDS A REFERRAL TO GASTROENTEROLOGY FOR A UPPER AND LOWER ENDOSCOPY. Porfirio VISIT COUNT (12 MO.) [address] [facility] TOTAL 5 NOTE: Visits indicate total known visits. ED/UCC VISIT TRACKING (12 MO.) 12/06/2021 14:56 [facility] [place] TYPE: Emergency COMPLAINT: - ABDOMINAL PAIN 11/06/2021 00:30 [facility] [place] TYPE: Emergency COMPLAINT: - TOE PAIN/ SWELLING DIAGNOSES: - Non-pressure chronic ulcer of other part of left foot with unspecified severity - Essential (primary) hypertension - Other residential (current) drug therapy - Hyperlipidemia, unspecified - Allergy status to other drugs, medicaments and biological substances - group home (current) use of oral hypoglycemic drugs - Type 2 diabetes mellitus with foot ulcer - Allergy status to other antibiotic agents - Local infection of the skin and subcutaneous tissue, unspecified - Personal history of nicotine dependence 02/25/2021 15:19 [facility] [place] TYPE: Emergency COMPLAINT: - SOB, LIGHT HEADED DIAGNOSES: - Hyperlipidemia, unspecified - Dizziness and giddiness - Personal history of nicotine dependence - Gastrointestinal hemorrhage, unspecified - Other terminal gauger supervisor (current) drug therapy - Allergy status to other antibiotic agents - Allergy status to other drugs, medicaments and biological substances - Essential (primary) hypertension 02/17/2021 22:32 [facility] [place] TYPE: Emergency COMPLAINT: - DIZZINESS DIAGNOSES: - Other terminal gauger supervisor (current) drug therapy - Dizziness and giddiness - Hyperlipidemia, unspecified - Essential (primary) hypertension - Allergy status to other antibiotic agents - Allergy status to other drugs, medicaments and biological substances 12/07/2020 19:18 [facility] [place] TYPE: Emergency COMPLAINT: - ABD PN DIAGNOSES: - Essential (primary) hypertension - Allergy status to other drugs, medicaments and biological substances - Allergy status to other antibiotic agents - Unspecified abdominal pain - Other residential (current) drug therapy - Hyperlipidemia, unspecified INPATIENT VISIT TRACKING (12 MO.) No inpatient visits to display in this time frame [email or web address]
[2021-12-06] MEDS ORDERED: K-TAB ER20 MEQ PO (17:51)
[2021-12-06] MEDS ORDERED: ONDANSETRON ODT4 MG SL (17:51)
[2021-12-06] MEDS ORDERED: PRILOSEC OTC20 MG PO (17:51)
== END 2021-12-06 18:37 | disposition home or self-care (01) ==
LOC: ED 14:55
DX: U07.1 COVID-19 (principal); E78.5 Hyperlipidemia, unspecified; I10 Essential (primary) hypertension; E07.9 Disorder of thyroid, unspecified; E11.9 Type 2 diabetes mellitus without complications; Z87.891 Personal history of nicotine dependence; Z88.8 Allergy status to other drugs, medicaments and biological substances; Z79.890 Hormone replacement therapy; Z79.84 Long term (current) use of oral hypoglycemic drugs; Z79.899 Other long term (current) drug therapy
CPT/HCPCS: 71045; 80053; 83690; 85025; 96374; 96375; 99284-25; J1170; J2405; J7030

== ENCOUNTER 2022-08-22 19:37 | Emergency (ER) | payer OTHER ==
[~2022-08-22] VITALS: Ht 188 cm; Wt 117.9 kg
[~2022-08-22 19:37] MED LIST changes: +K-TAB ER20 MEQ PO; +ONDANSETRON ODT4 MG SL; +PRILOSEC OTC20 MG PO
[2022-08-22] MEDS ORDERED: ULTRAM50 MG PO ×2 (23:53)
== END 2022-08-23 00:20 | disposition home or self-care (01) ==
LOC: ED 19:37
DX: I80.02 Phlebitis and thrombophlebitis of superficial vessels of left lower extremity (principal); I10 Essential (primary) hypertension; E78.5 Hyperlipidemia, unspecified; E11.9 Type 2 diabetes mellitus without complications; Z87.891 Personal history of nicotine dependence; Z88.1 Allergy status to other antibiotic agents; Z88.8 Allergy status to other drugs, medicaments and biological substances; Z79.899 Other long term (current) drug therapy; Z79.84 Long term (current) use of oral hypoglycemic drugs
CPT/HCPCS: 36415; 85025; 85379; 93971; 99284-25; A9270; J7512

== ENCOUNTER 2022-08-29 15:43 | Emergency (ER) | payer OTHER ==
[~2022-08-29] VITALS: Ht 188 cm; Wt 116.2 kg
[~2022-08-29 15:43] MED LIST changes: +ULTRAM50 MG PO
--- OUTSIDE RECORDS SUMMARY | 2022-08-29 15:46 | XMS ---
PreManage Notification: KHURRAM NGUYỄN Security Cupola Worker Events No recent Security Events currently on file CRITERIA MET - [facility] - 2 Visits in 30 Days [facility], [facility] PHONE: [phone] JULISSA PACHECO Physician Head Start Coordinator 10/28/2020-Current PHONE: [phone] [facility] has no Care Guidelines for this patient. EGiovanna VISIT COUNT (12 MO.) [address] [place] [address] TOTAL 4 NOTE: Visits indicate total known visits. ED/UCC VISIT TRACKING (12 MO.) 08/29/2022 15:[address] [facility] [place] TYPE: Emergency COMPLAINT: - SKIN PROBLEMS 08/22/2022 19:38 [facility] [place] TYPE: Emergency COMPLAINT: - R LEG PAIN 12/06/2021 14:56 [facility] [place] TYPE: Emergency COMPLAINT: - ABDOMINAL PAIN DIAGNOSES: - Essential (primary) hypertension - Epigastric pain - Hyperlipidemia, unspecified - Type 2 diabetes mellitus without complications - Other detention (current) drug therapy - exterminator termite (current) use of oral hypoglycemic drugs - COVID-19 - Personal history of nicotine dependence - Disorder of thyroid, unspecified - Hormone replacement therapy - Allergy status to other drugs, medicaments and biological substances 11/06/2021 00:30 [facility] TYPE: Emergency COMPLAINT: - TOE PAIN/ SWELLING DIAGNOSES: - Essential (primary) hypertension - Local infection of the skin and subcutaneous tissue, unspecified - Type 2 diabetes mellitus with foot ulcer - Allergy status to other drugs, medicaments and biological substances - Other detention (current) drug therapy - Personal history of nicotine dependence - Non-pressure chronic ulcer of other part of left foot with unspecified severity - Allergy status to other antibiotic agents - [facility] (current) use of oral hypoglycemic drugs - Hyperlipidemia, unspecified INPATIENT VISIT TRACKING (12 MO.) No inpatient visits to display in this time frame [email or web address]
[2022-08-29] MEDS ORDERED: TAMSULOSIN HCL0.4 MG PO (16:13)
[2022-08-29] MEDS ORDERED: TRAMADOL HCL50 MG PO (16:13)
[2022-08-29] MEDS ORDERED: OZEMPIC1 MG/0.71 SUB-Q (16:13)
[2022-08-29] MEDS ORDERED: XARELTO10 MG PO (18:16)
== END 2022-08-29 19:32 | disposition home or self-care (01) ==
LOC: ED 15:43
DX: I82.811 Embolism and thrombosis of superficial veins of right lower extremity (principal); I10 Essential (primary) hypertension; E07.9 Disorder of thyroid, unspecified; Z88.8 Allergy status to other drugs, medicaments and biological substances; Z88.1 Allergy status to other antibiotic agents; Z79.899 Other long term (current) drug therapy; Z87.891 Personal history of nicotine dependence
CPT/HCPCS: 93971; 99283-25

== ENCOUNTER 2024-11-15 10:20 | Day surgery (SDC) | payer OTHER ==
[2024-11-07 14:14] VITALS: BP 139/94
[~2024-11-15] VITALS: Ht 188 cm; Wt 118.0 kg
[~2024-11-15 10:20] MED LIST changes: +CEFAZOLIN SODIUM 2 GM/20 ML SYR IV SCH; +CYMBALTA60 MG PO; +IBLOOD GLUCOSE TEST STRIP 1 EA TEST VI PRN; +LACTATED RINGER'S 1,000 ML IV SCH; +LIDOCAINE HCL 1% 5 ML SDV INJ ONE; +LIOTHYRONINE S25 MCG PO; +OZEMPIC1 MG/0.71 SUB-Q; +TRAMADOL HCL50 MG PO; +TRAZODONE HCL50 MG PO; +WELLBUTRIN XL300 MG PO; +XARELTO10 MG PO
[2024-11-15 10:33] VITALS: BP 156/87
[2024-11-15] MEDS ORDERED: propofoL 200 MG/20 ML VIAL ONE (10:59)
--- NOTE | 2024-11-15 11:47 | NUR ---
11/15/24 1147 Sherry Smalls PT TO PACU SLEEPING ORAL AIRWAY IN PLACE O2 VIA MASK FOGGING NOTED IN MASK.
--- NOTE | 2024-11-15 12:24 | OR ---
[facility] [address] [place], [place] [address] Signed DATE OF OPERATION: 11/15/2024 SURGEON: Nivia Lirinao MD PREOPERATIVE DIAGNOSES: 1. Father with colon cancer in his 70s. 2. Mother, sisters x2 and brother with colon polyps. 3. Personal history of polyps in 2015 at age 44. 4. Internal hemorrhoids. POSTOPERATIVE DIAGNOSES: 1. Poor bowel prep. 2. Moderate internal hemorrhoids. PROCEDURE: Colonoscopy without biopsy. ESTIMATED BLOOD LOSS: None. INDICATIONS: Khurram is a 54-year-old gentleman asked to see me for a followup colonoscopy. We know his father had colon cancer in his 70s. His mother, sisters x2, and brother all with colonic polyps. I helped Khurram in 2014 at the age of 44 with his initial colonoscopy. He had a little rectal bleeding at that time. He had a couple of small tubular adenomatous polyps along with three small hyperplastic polyps removed. They were all 5 mm or less in diameter. He had some internal hemorrhoids. Later in 2018 he ended up at [facility] for his Brynn-en-Y gastric bypass. He has lost a significant amount of weight since that time. He said he feels much better. His iron deficiency anemia responded to IV iron infusion with Dr. Sanchez Taylor. In fact, his preop blood work was quite fine. Dr. Taylor noticed that Khurram was in need of a followup colonoscopy. Khurram should be on the five year rotation. He said he has no lower GI complaints. He did well last time with our standard bowel prep. However, on this occasion, he is using Ozempic which we hold one week prior to the procedure. Nevertheless his bowel prep was only moderate at best on this occasion. There were multiple areas of thick particulate stool matter I simply could not suction out. In the future, he is going to need to increase the polyethylene glycol up to a full gallon along with some Dulcolax tablets or magnesium citrate. In the office I had given him a pamphlet on colonoscopy. He recalls the nature of the test. There is risk including, but not limited to gas bloating, crampy abdominal pain, bleeding, perforation requiring Electronically Signed By: NIVIA LIRIANO MD 11/15/24 1224 PATIENT NAME: KHURRAM NGUYỄN OPERATIVE REPORT DATE OF : 68 REPORT #: [id number] PHYSICIAN: NIVIA LIRIANO MD PCP: JULISSA PACHECO PA-C REPORT IS CONFIDENTIAL AND NOT TO BE RELEASED WITHOUT AUTHORIZATION [facility] [address] [place], [place] [address] Signed surgery, and missed diagnosis. Also, he needs monitored anesthesia care, particularly with respect to his significant sleep apnea and diabetes. He understands an adult person has to take him home afterwards. He had expressed understanding and wished to proceed. DESCRIPTION OF PROCEDURE: Khurram was taken into our endoscopy suite and placed in the left lateral decubitus position. He was given monitored anesthesia care propofol infusion per our nurse cork floor installer. A digital rectal exam was performed and his prostate is not overly enlarged, but it is indurated. The left is more prominent than the right. There were no masses. He had good sphincter tone. There were really no external hemorrhoids. The adult colonoscope was introduced and advanced under direct visualization of the camera. We had enough liquid stool though we almost did make it through the sigmoid colon. It opened up a bit for the left colon and transverse colon and again it was fairly troublesome in the right colon. We did not quite make it down to the ileocecal valve. The scope was then slowly withdrawn. Again, multiple areas of thick liquid particulate stool matter we simply could not suction out. We did not see any pathology throughout the entire colon. In the rectum, the scope was retroflexed, he does have moderate internal hemorrhoid columns. After this, the gas was suctioned out, colonoscope removed. Khurram tolerated the procedure quite well. RECOMMENDATIONS: Khurram will need to reschedule his colonoscopy in the months ahead with a full gallon of polyethylene glycol and Dulcolax tablets and/or magnesium citrate. He will simply start the prep first thing in the morning and extend it throughout the day with respect to the gastric bypass. He will always need monitored anesthesia care. Nivia Liriano MD ALB/MODL /[id number] cc: CHADWICK Mayen MD Electronically Signed By: NIVIA LIRIANO MD 11/15/24 1224 PATIENT NAME: KHURRAM NGUYỄN OPERATIVE REPORT DATE OF : 68 REPORT #: [id number] PHYSICIAN: NIVIA LIRIANO MD PCP: JULISSA PACHECO PA-C REPORT IS CONFIDENTIAL AND NOT TO BE RELEASED WITHOUT AUTHORIZATION [facility] [address] [place], [place] [address] Signed Copies: JULISSA PACHECO PA-C, ANDREW L MD ~ Electronically Signed By: NIVIA LIRIANO MD 11/15/24 1224 PATIENT NAME: KHURRAM NGUYỄN OPERATIVE REPORT DATE OF : 68 REPORT #: [id number] PHYSICIAN: NIVIA LIRIANO MD PCP: JULISSA PACHECO PA-C REPORT IS CONFIDENTIAL AND NOT TO BE RELEASED WITHOUT AUTHORIZATION
[2024-11-15 12:29] VITALS: BP 126/77
== END 2024-11-15 12:40 | disposition home or self-care (01) ==
LOC: DS 10:20
PROVIDERS: ATTEND Colon & Rectal Surgery
PROC: 0DJD8ZZ Inspection of Lower Intestinal Tract, Via Natural or Artificial Opening Endoscopic (ICD-10-PCS; principal; 2024-11-15 11:25)
DX: Z12.11 Encounter for screening for malignant neoplasm of colon (principal); K64.8 Other hemorrhoids; D50.9 Iron deficiency anemia, unspecified; I10 Essential (primary) hypertension; E11.9 Type 2 diabetes mellitus without complications; G47.33 Obstructive sleep apnea (adult) (pediatric); E03.9 Hypothyroidism, unspecified; E78.5 Hyperlipidemia, unspecified; Z86.0101 Personal history of adenomatous and serrated colon polyps; Z87.891 Personal history of nicotine dependence; Z79.899 Other long term (current) drug therapy; Z88.1 Allergy status to other antibiotic agents; Z88.8 Allergy status to other drugs, medicaments and biological substances; Z80.0 Family history of malignant neoplasm of digestive organs; Z83.719 Family history of colon polyps, unspecified
CPT/HCPCS: 00811; J2704; J7121

== ENCOUNTER 2024-12-30 14:20 | Emergency (ER) | payer OTHER ==
[~2024-12-30] VITALS: Ht 188 cm; Wt 114.8 kg
[~2024-12-30 14:20] MED LIST changes: -CEFAZOLIN SODIUM 2 GM/20 ML SYR IV SCH; -IBLOOD GLUCOSE TEST STRIP 1 EA TEST VI PRN; -LACTATED RINGER'S 1,000 ML IV SCH; -LIDOCAINE HCL 1% 5 ML SDV INJ ONE
[2024-12-30] MEDS ORDERED: PROPRANOLOL HCL10 MG PO (14:42)
[2024-12-30] MEDS ORDERED: KETOROLAC TROMETHAMINE 30 MG/ML VIAL IV ONE (16:15)
[2024-12-30] MEDS ORDERED: SODIUM CHLORIDE 0.9% 1,000 ML IV ONE (16:15)
[2024-12-30] MEDS ORDERED: ondansetron HCL 4 MG/2 ML VIAL IV ONE (16:15)
[2024-12-30 16:28] LABS: BASOPHILS 0.8 % (0-2); HEMATOCRIT 43.3 % (35.0-50.0); HEMOGLOBIN 14.9 g/dL (12.0-18.0); LYMPHOCYTES 22.4 % (24-44); MCH 31.4 (27-36); MCHC 34.3 g/dl (30-36); MCV 91.6 fl (81-99); MONOCYTES 8.2 % (0-12); NEUTROPHILS 64.6 % (39-80); PLATELET COUNT 197 K/uL (140-440); RBC 4.73 M/ul (4.3-5.7); RDW 13.5 (10.5-15.0)
[2024-12-30 16:41] LABS: ALBUMIN 3.2 g/dL (3.4-5.0); ALBUMIN/GLOBULIN RATIO 0.91 (1.1-2.4); ANION GAP 13.3 (7-21); BILIRUBIN, TOTAL 0.4 mg/dL (0.2-1.0); BUN/CREATININE RATIO 15.38 (6.0-28.6); CALCIUM 8.8 mg/dL (8.5-10.1); CREATININE, SERUM 0.91 mg/dL (0.70-1.30); POTASSIUM 3.3 mmol/L (3.5-5.1); PROTEIN, TOTAL 6.7 g/dL (6.4-8.2)
[2024-12-30] MEDS ORDERED: ONDANSETRON ODT8 MG PO (17:35)
[2024-12-30 17:43] VITALS: BP 131/89
== END 2024-12-30 17:43 | disposition home or self-care (01) ==
LOC: ED 14:20
PROVIDERS: Emergency Medicine
DX: R55 Syncope and collapse (principal); S83.91XA Sprain of unspecified site of right knee, initial encounter; W19.XXXA Unspecified fall, initial encounter; I10 Essential (primary) hypertension; E11.9 Type 2 diabetes mellitus without complications; E78.5 Hyperlipidemia, unspecified; Z87.891 Personal history of nicotine dependence; Z88.1 Allergy status to other antibiotic agents; Z88.8 Allergy status to other drugs, medicaments and biological substances; Z79.899 Other long term (current) drug therapy
CPT/HCPCS: 36415; 73560; 80053; 85025; 96374; 96375; 99284-25; J1885; J2405; J7030

== ENCOUNTER 2025-01-25 07:25 | Day surgery (SDC) | payer OTHER ==
[2025-01-23 08:52] VITALS: BP 141/93
[~2025-01-25] VITALS: Ht 188 cm; Wt 113.2 kg
[~2025-01-25 07:25] MED LIST changes: +IBLOOD GLUCOSE TEST STRIP 1 EA TEST VI PRN; +LACTATED RINGER'S 1,000 ML IV SCH; +LIDOCAINE HCL 1% 5 ML SDV INJ ONE; +PROPRANOLOL HCL10 MG PO
--- NOTE | 2025-01-25 07:31 | NUR ---
PT NOT AVAILABLE FOR VISIT. PROVIDED PRAYER.
[2025-01-25 07:37] VITALS: BP 137/89
[2025-01-25] MEDS ORDERED: propofoL 200 MG/20 ML VIAL ONE (09:23)
[2025-01-25] MEDS ORDERED: LIDOCAINE HCL 2% 5 ML SDV ONE (09:23)
--- NOTE | 2025-01-25 10:08 | NUR ---
01/25/25 Riri8 Larisa Ortiz 1002-PATIENT ARRIVED TO PACU ON 6L MASK NONAROUSABEL RR EVEN 100% PAITIENT LAYING LEFT LATERAL IVF INFUSING. ABDOMEN SOFT SR HR 70'S.
[2025-01-25 10:39] VITALS: BP 139/91
--- NOTE | 2025-01-25 11:18 | OR ---
[facility] [address] [place] [place], [place] [address] Signed DATE OF OPERATION: 01/25/2025 SURGEON: Nivia Liriano MD PREOPERATIVE DIAGNOSES: 1. Father with colon cancer in his 70s. 2. Mom, sister and brothers x2 all with colon polyps. 3. Personal history of colonic polyps in 2014 at the age of 44. 4. Internal hemorrhoids. 5. Poor bowel prep in November 2024. POSTOPERATIVE DIAGNOSES: 1. Long redundant colon. 2. 5 mm polyp in transverse colon. 3. Minimal internal hemorrhoids. 4. Very poor bowel prep. PROCEDURE: Colonoscopy with hot biopsy. ESTIMATED BLOOD LOSS: None. INDICATIONS: Khurram is a 54-year-old gentleman who I helped in 2014 at the age of 44 with his initial colonoscopy for rectal bleeding. We know his father had colon cancer in his 70s. We know his mom, sister and both brothers have had colonic polyps as well. Khurram had a couple of tubular adenomatous polyps all less than 5 mm in diameter. He had three hyperplastic polyps. He had internal hemorrhoids. He did well with Versed and fentanyl at that time. We asked him to follow up in 5 years. In the meantime, he went to [facility] in 2018 for his Brynn-en-Y gastric bypass. He has lost a significant amount of weight. He said he feels much better. He did have some iron deficiency anemia evaluated by his medical oncologist, Dr. Taylor. He had received a couple of treatments of IV iron. That corrected hemoglobin nicely. Dr. Taylor realized Khurram was in need of a followup colonoscopy based on his personal family history. He has no lower GI complaints. We put him through our standard bowel prep with four Dulcolax tablets and 64 ounces of polyethylene glycol. Unfortunately, he had several areas of liquid particulate stool matter that we simply could not suction out completely. We did see some internal hemorrhoids. We recommended he repeat the colonoscopy with a full gallon of polyethylene glycol along with eight Dulcolax tablets. Electronically Signed By: NIVIA LIRIANO MD 01/25/25 1118 PATIENT NAME: KHURRAM NGUYỄN OPERATIVE REPORT DATE OF : 68 REPORT #: [id number] PHYSICIAN: NIVIA LIRIANO MD PCP: JULISSA PACHECO PA-C REPORT IS CONFIDENTIAL AND NOT TO BE RELEASED WITHOUT AUTHORIZATION [facility] [address] [place], [place] [address] Signed He presents today for his followup colonoscopy. In the office I had given a pamphlet on colonoscopy. He understands the nature of the test. There is risk including, but not limited to gas bloating, crampy abdominal pain, bleeding, perforation requiring surgery, and missed diagnosis. We had gone over the bowel prep in detail so that he takes the bowel prep in the morning and he repeats that again in the afternoon. We had him hold his Ozempic one week prior to the procedure. Also, he needs monitored anesthesia care because of his size, his diabetes and his sleep apnea requiring a CPAP mask. He said his would be able to take him home afterwards. He had expressed understanding and wished to proceed. DESCRIPTION OF PROCEDURE: Khurram was taken into our endoscopy suite and placed in the left lateral decubitus position. He was given monitored anesthesia care of propofol infusion per our nurse fleet director. A digital rectal exam was performed. This was unremarkable. No external hemorrhoids. Good sphincter tone. No masses. The adult colonoscope was introduced. We immediately started on liquid particulate stool matter. It traveled all the way up the left colon and into the transverse colon. He had voluminous amounts of liquid particulate stool matter on the bed all the way up his mid back. We simply could not suction it out because of all the particulate matter. We used abdominal compression and we made it up to what we think is his proximal right colon. The scope simply would not pass any further. He appears to have a long redundant colon. Of course, it helps to have a clean bowel prep. The scope was then slowly withdrawn. We took a polyp out of his colon at around 110 cm. No other pathology noted in the left or sigmoid colon. In the rectum, the scope was retroflexed and he does have minimal internal hemorrhoid columns. After this, the gas was suctioned out. Colonoscope removed. Khurram tolerated the procedure quite well. RECOMMENDATIONS: I will see Khurram in my office in 7 to 14 days to review his biopsy results. He should consider repeating his colonoscopy in 1 to 3 years with a full bottle of magnesium citrate and a full commercial bowel prep. If necessary, he might even have to go over two days. He will always need monitored anesthesia care. Nivia Liriano MD ALB/WALTL /[id number] Electronically Signed By: NIVIA LIRIANO MD 01/25/25 1118 PATIENT NAME: KHURRAM NGUYỄN OPERATIVE REPORT DATE OF : [birth year] REPORT #: [id number] PHYSICIAN: NIVIA LIRIANO MD PCP: JULISSA PACHECO PA-C REPORT IS CONFIDENTIAL AND NOT TO BE RELEASED WITHOUT AUTHORIZATION [address] [place] [address] Signed cc: CHADWICK Mayen MD Copies: JULISSA PACHECO PA-C, ANDREW L MD ~ Electronically Signed By: NIVIA LIRIANO MD 01/25/25 1118 PATIENT NAME: KHURRAM NGUYỄN OPERATIVE REPORT DATE OF : 68 REPORT #: [id number] PHYSICIAN: NIVIA LIRIANO MD PCP: JULISSA PACHECO PA-C REPORT IS CONFIDENTIAL AND NOT TO BE RELEASED WITHOUT AUTHORIZATION
--- NOTE | 2025-01-29 14:43 | PATH ---
[facility] [address] [place], [place] [address] Signed SPECIMEN(S): A MID TRANSVERSE COLON BIOPSY SPECIMEN SOURCE: A. MID TRANSVERSE COLON BIOPSY CLINICAL HISTORY: History of colon polyps, internal hemorrhoids, colon polyp long redundant colon FINAL PATHOLOGIC DIAGNOSIS: Colon, mid transverse, biopsy: - Tubular adenoma BRP MICROSCOPIC EXAMINATION: Histologic sections of all submitted blocks are examined by light microscopy. These findings, together with the gross examination, support the pathologic diagnosis. GROSS DESCRIPTION: The specimen, labeled and designated "Courtney mid transverse colon biopsy," is received in formalin and consists of one russ soft tissue fragment, 0.2 cm. Entirely submitted in (A1). VB (under the direct supervision of a pathologist) The Gross Description was prepared using a voice recognition system. The report was reviewed for accuracy; however, sound-alike word errors, addition and/or deletions may occur. If there is any question about this report, please contact Client Services. ADDITIONAL NOTES: Immunohistochemical and/or in situ hybridization studies if performed in this case included appropriate positive controls that reacted as expected. This test was developed and its performance characteristics determined by [facility]. It has not been cleared or approved by the U.S. Food and Drug Administration. The FDA has determined that such clearance or approval is not necessary. This test is used for clinical purposes. It should not be regarded as investigational or for research. [facility] is certified under the Clinical Laboratory Improvement Amendments of 1988 (CLIA) as qualified to perform high complexity clinical laboratory testing. PATIENT NAME: KHURRAM NGUYỄN PATHOLOGY DATE OF : 68 REPORT #: [id number] PHYSICIAN: JADYN MAURO PCP: JULISSA PACHECO PA-C REPORT IS CONFIDENTIAL AND NOT TO BE RELEASED WITHOUT AUTHORIZATION [address] [place], [place] [address] Signed PERFORMING LABORATORY: Technical component was performed by [facility], [address] [place] [address] (CLIA# [id number]). Professional interpretation was performed by [facility] - [facility], [address] [place] [address] (CLIA#: [id number]). Diagnostician: Jason Montes MD Pathologist Electronically Signed 01/29/2025 Copies: ~ PATIENT NAME: KHURRAM NGUYỄN PATHOLOGY DATE OF : 68 REPORT #: [id number] PHYSICIAN: JADYN MAURO PCP: JULISSA PACHECO PA-C REPORT IS CONFIDENTIAL AND NOT TO BE RELEASED WITHOUT AUTHORIZATION
== END 2025-01-25 10:45 | disposition home or self-care (01) ==
LOC: DS 07:25
PROVIDERS: ATTEND Colon & Rectal Surgery
PROC: 0DBL8ZZ Excision of Transverse Colon, Via Natural or Artificial Opening Endoscopic (ICD-10-PCS; principal; 2025-01-25 08:45)
DX: D12.3 Benign neoplasm of transverse colon (principal); K64.8 Other hemorrhoids; K63.89 Other specified diseases of intestine; I10 Essential (primary) hypertension; E78.5 Hyperlipidemia, unspecified; G47.30 Sleep apnea, unspecified; G25.81 Restless legs syndrome; G47.33 Obstructive sleep apnea (adult) (pediatric); E10.9 Type 1 diabetes mellitus without complications; E83.10 Disorder of iron metabolism, unspecified; E03.9 Hypothyroidism, unspecified; Z88.8 Allergy status to other drugs, medicaments and biological substances; Z79.899 Other long term (current) drug therapy; Z87.891 Personal history of nicotine dependence; Z83.718 Family history of other colon polyps; Z80.0 Family history of malignant neoplasm of digestive organs
CPT/HCPCS: 00811; J2003; J2704; J7121

== ENCOUNTER 2025-08-23 12:17 | Emergency (ER) | payer OTHER ==
[~2025-08-23] VITALS: Ht 188 cm; Wt 113.2 kg
[~2025-08-23 12:17] MED LIST changes: -IBLOOD GLUCOSE TEST STRIP 1 EA TEST VI PRN; -LACTATED RINGER'S 1,000 ML IV SCH; -LIDOCAINE HCL 1% 5 ML SDV INJ ONE
[2025-08-23] MEDS ORDERED: DIPHTH,PERTUSS(ACELL),TET VAC 0.5 ML SYRINGE IM ONE (13:45)
[2025-08-23 16:27] VITALS: BP 132/79
== END 2025-08-23 16:24 | disposition home or self-care (01) ==
LOC: ED 12:17
DX: S61.217A Laceration without foreign body of left little finger without damage to nail, initial encounter (principal); I10 Essential (primary) hypertension; E78.5 Hyperlipidemia, unspecified; E11.9 Type 2 diabetes mellitus without complications; Z87.891 Personal history of nicotine dependence; Z88.1 Allergy status to other antibiotic agents; Z88.8 Allergy status to other drugs, medicaments and biological substances; Z79.85 Long-term (current) use of injectable non-insulin antidiabetic drugs; Z79.899 Other long term (current) drug therapy; W26.0XXA Contact with knife, initial encounter
CPT/HCPCS: 12001; 90471; 90715; 99282-25